=== PATIENT | male | born 1950 | race Caucasian/White ===

== ENCOUNTER 2021-02-03 16:19 | Emergency (ER) | payer OTHER, SELFPAY ==
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
[2021-02-03 16:28] VITALS: BP 129/92; BP 134/80; PULSE 79; PULSE 94; RESP 18; TEMP 37; O2SAT 100; O2SAT 99; BMI 24.2
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
--- NOTE | 2021-02-03 17:03 | PC.NURSE ---
pt is very repetitive, strong potent smell of marijuana while in pt room.
[2021-02-03 17:06] LABS: MANUAL DIFF FLAG NO
[2021-02-03 17:07] LABS: Basophils Percent Auto 0.4 % (0-2); Eosinophils Absolute Auto 0.1 X10*3/uL (0.0-0.4); Eosinophils Percent Auto 1.7 % (0-4); Hematocrit 41.2 % (42-52); Hemoglobin 14.5 g/dl (14.0-18.0); Imm Gran Abs Auto 0.01 X10*3/uL (0.00-0.03); Imm Gran Pct Auto 0.1 % (0.0-0.4); Lymphocytes Absolute Auto 1.8 X10*3/uL (1.2-4.9); Lymphocytes Percent Auto 26.7 % (20-40); Mean Corpuscular HGB Conc 35.2 g/dl (31.0-36.0); Mean Corpuscular Hemoglobin 32.3 pg (27.0-33.0); Mean Corpuscular Volume 91.8 fL (80-98); Mean Platelet Volume 10.4 fL (9.4-12.4); Monocytes Absolute Auto 0.5 X10*3/uL (0.1-1.2); Monocytes Percent Auto 7.7 % (2-11); Neutrophils Absolute Auto 4.4 X10*3/uL (2.0-8.3); Neutrophils Percent Auto 63.4 % (45-73); Platelet Count 183 X10*3/uL (160-400); Red Blood Count 4.49 X10*6/uL (4.60-5.80); Red Cell Distribution Width 12.1 % (11.0-16.0); White Blood Count 6.9 X10*3/uL (4.8-10.8)
[2021-02-03 17:11] VITALS: BP 136/86; PULSE 79; RESP 16; TEMP 36.9; O2SAT 94
[2021-02-03 17:32] LABS: Ethanol < 10 mg/dL
[2021-02-03 17:35] LABS: Alanine Aminotransferase 19 U/L (0-40); Alkaline Phosphatase 53 U/L (39-117); Anion Gap 11 (12-20); Aspartate Amino Transferase 20 U/L (5-37); Bilirubin Total 0.7 mg/dL (0.0-1.0); Blood Urea Nitrogen 16 mg/dL (9-16); Calcium 9.5 mg/dL (8.4-10.2); Carbon Dioxide 23 mmol/L (22-29); Chloride 109 mmol/L (96-108); Creatinine Clr Calc Pharmacy 59.6; Estimated Glomerular Filt Rate > 60; Glucose Random 107 mg/dL (60-115); Magnesium 2.1 mg/dL (1.6-2.6); Sodium 139 mmol/L (135-145); Total Protein 6.5 g/dL (6.5-8.0)
[2021-02-03 17:41] LABS: Troponin-I High Sensitivity 14.8 ng/L (<3.5-35.0)
[2021-02-03 19:17] VITALS: BP 147/82; PULSE 60; RESP 15; TEMP 37; O2SAT 98
--- NOTE | 2021-02-03 19:27 | PC.NURSE ---
RN assumed care at 1900. Pt alert and oriented x4, calm and cooperative. Pt denies pain. Pt ambulating and steady on his feet, denies dizziness weakness blurred vision or headache. Pt educated on dc and stated an understanding. Vitals stable. No IV in place. Pt picked up by friend.
== END 2021-02-03 19:28 | disposition home or self-care (01) ==
PROVIDERS: Emergency Provider Internal Medicine; PCP Internal Medicine
DX: Z04.1 Encounter for examination and observation following transport accident (principal); G47.419 Narcolepsy without cataplexy
CPT/HCPCS: 36415; 70450; 72125; 80053; 82077; 83735; 84484; 85025; 93005; 99284; 99285

== ENCOUNTER 2022-10-08 09:19 | Outpatient (REF) | payer OTHER, SELFPAY ==
--- NOTE | ~2022-10-08 | MM_ITS ---
EXAMINATION: BONE DENSITOMETRY CLINICAL INDICATION: Osteoporosis. COMPARISON: None (current study represents initial baseline exam). TECHNIQUE: Using a [employer] DXA System (software version: 13.1) manufactured by [employer], dual-energy x-ray absorptiometry was performed of the lumbar spine and left hip. The images are of good technical quality. Summary results are attached. FINDINGS: AP SPINE L1-L4: BMD 1.223 g/cm2, Z-score 0.9, T-score 0.0, normal. LEFT FEMUR, NECK: BMD 0.977 g/cm2, Z-score 0.8, T-score -0.7, normal. LEFT FEMUR, TOTAL: BMD 1.026 g/cm2, Z-score 0.4, T-score -0.5, normal. IDENTIFIED RISK FACTORS: Height loss, low calcium intake. HISTORY OF FRACTURE: None listed. MEDICATIONS: None listed. MM/XR DEXA axial skeleton IMPRESSION: 1. DIAGNOSIS: Normal bone density based on the lowest T-score value of -0.7 in the femoral neck applying World Health Organization criteria. 2. 10-YEAR FRACTURE RISK PREDICTION, FRAX: According to the guidelines, FRAX calculation should only be performed on patients in the osteopenia bone density category. Therefore, FRAX was not performed on this patient. 3. Treatment Recommendations: NOF guidelines recommend consideration for treatment in postmenopausal women and men age 50 and older presenting with the following: -A hip or vertebral (clinical or morphometric) fracture. -T-score less than or equal to -2.5 at the femoral neck or spine after appropriate evaluation to exclude secondary causes. -Low bone mass at the hip or spine and a 10-year fracture probability by FRAX of greater than or equal to 3% for hip fracture or greater than or equal to 20% for major osteoporotic fracture based on the [place] adapted WHO algorithm. 4. Other Recommendations: All treatment decisions require clinical judgment and consideration of individual patient factors, including patient preferences, comorbidities, previous drug use, risk factors not captured in the FRAX model (e.g. frailty, falls, vitamin D deficiency, increased bone turnover, interval significant decline in bone density) and possible under or overestimation of fracture risk by FRAX. FUTURE SCAN RECOMMENDATION: People with diagnosed cases of osteoporosis or at high risk for fracture should have regular bone mineral density tests. For patients eligible for Medicare, routine testing is allowed once every 2 years. The testing frequency can be increased to one year for patients who have rapidly progressing disease, those who are receiving or discontinuing medical therapy to restore bone mass, or have additional risk factors.
== END 2022-10-08 09:20 | disposition home or self-care (01) ==
LOC: HO.MAMMO 09:19
PROVIDERS: PCP Nurse Practitioner Adult Health; Visit Provider Nurse Practitioner Adult Health
DX: Z13.820 Encounter for screening for osteoporosis (principal); M81.0 Age-related osteoporosis without current pathological fracture
CPT/HCPCS: 77080

== ENCOUNTER 2024-12-05 17:33 | Inpatient (IN) | payer MEDICARE, OTHER, SELFPAY ==
--- OUTSIDE RECORDS SUMMARY | 2024-11-08 07:00 | XMS_ITS ---
Author Organization [facility] Address [address] [place] [phone] Care Team Providers Care Photo Equipment Technician Name Role Phone MARLON CABA Unavailable [phone] REASON FOR VISIT PrEP F/U Social History Sex Assigned At : Social History Observation Description Sex Assigned At Male Encounters Encounter Location Date Provider Diagnosis [address] [id number] MARLON CABA Plan Of Treatment Next Appt Details Provider Name:VANESSA PETIT , 12/18/2024 12:00:00 PM, [address] [place] [address] I, [place], [place], [id number], Progress Notes * Dana KITCHENOB:1950 (74 yo M)Acc No.[id number]:11/08/2024 Progress Notes Patient: Ulisses MILNER Provider: Linwood CABA :1950 A ge:74 Y S ex:Male Date:11/08/2024 Address:[address] [place], [place] [id number] Subjective: * Chief Complaints: * 1 . PrEP F/U. * Medical History: Objective: * Vitals: Assessment: Plan: * Treatment: * Billing Information: * Visit Code: * Procedure Codes: * Electronic signature of MILDRED CABA CNM on 12/05/2024 at 06:11 PM EDT Sign off status: Pending * Provider: Linwood CABA Date: 0 11/08/2024 Generated for B[place] ewa/Parag/eTransmitting on: 0 12/05/2024 06:11 PM EDT
--- NOTE | ~2024-12-05 | XR_ITS ---
EXAMINATION: XR CHEST 1 VIEW HISTORY: Severe hypoxia COMPARISON: Comparison is made with the prior examination dated 12/05/2024. FINDINGS: A single AP portable view of the chest performed at 7:05 AM is submitted. There are low lung volumes. The lungs are clear. There is no pleural effusion, pneumothorax, or pulmonary vascular congestion. The heart is normal in size. Again seen is a small hiatal hernia. There is degenerative disc disease of the spine. XR/XR chest 1V IMPRESSION: Low lung volumes. Small hiatal hernia. No acute cardiopulmonary abnormality. Electronically signed by: Demetris Mckeon MD 12/06/2024 07:23 AM EDT
--- NOTE | ~2024-12-05 | CT_ITS ---
CLINICAL HISTORY: ams CT Brain without contrast Comparison: None FINDINGS: Cortical sulci: There is diffuse prominence of the cortical sulci compatible with age-related atrophy. Ventricles: Normal for age Brain parenchyma: There is patchy lucency throughout the deep white matter indicating chronic microvascular leukomalacia. Extra axial spaces: Normal Posterior Fossa: Normal Extracranial soft tissues: Normal Additional abnormality: Mucous retention cyst in the left maxillary sinus. IMPRESSION: Age-related atrophy with chronic microvascular leukomalacia. No hemorrhage, mass effect, or acute findings identified. This document has been electronically signed by: Meg Rivera MD on 12/05/2024 20:12:31
--- NOTE | ~2024-12-05 | CT_ITS ---
CLINICAL HISTORY: hypoxia CT angiography chest with contrast. 3D Postprocessing. Comparison: None provided Findings: The heart is normal size. RV/LV ratio is normal. Unremarkable thoracic aorta and great vessels. No aneurysm. No pulmonary artery filling defects. The visualized thyroid and mediastinum are unremarkable. Large hiatal hernia. The lungs are clear. There are renal cysts. The bones are intact. IMPRESSION: 1. No pulmonary emboli. This document has been electronically signed by: Meg Rivera MD on 12/05/2024 20:24:23
--- NOTE | ~2024-12-05 | CT_ITS ---
CLINICAL HISTORY: ams hernia hypoxia CT abdomen and pelvis with contrast Comparison: None Findings: The visualized portions of the lungs are normal in appearance. The liver is normal in size without suspicious focal hepatic lesions. No intrahepatic or extrahepatic ductal dilatation is seen. The hepatic and portal veins are patent. No calcified gallstones in the gallbladder. Pancreas, spleen and adrenals are normal in appearance. No suspicious focal lesion of the kidneys. Right renal cysts up to 8.6 cm in size. No hydronephrosis. Small left kidney stone. The abdominal aorta demonstrates no evidence of aneurysmal dilatation or dissection. No bowel obstruction. Colonic diverticulosis. Large amount of fecal material within the colon. Stool impaction of the rectum. Appendix is not visualized. There is enlargement of the prostate gland. No intraperitoneal free air or fluid is visualized. No pathologic lymphadenopathy is seen. Degenerative changes of the lumbar spine. IMPRESSION: No acute findings. Large stool burden. Nonobstructing left kidney stone. Colonic diverticulosis. Additional findings as above. This document has been electronically signed by: Meg Rivera MD on 12/05/2024 20:33:29
--- NOTE | ~2024-12-05 | XR_ITS ---
CLINICAL HISTORY: difficulty breathing 1 view chest x-ray Comparison: None provided Findings: The lungs are clear. Heart size is normal. There is a round shaped opacity overlying the inferior mediastinum. No acute fracture. IMPRESSION: No acute findings. Possible moderate size of hiatal hernia. This document has been electronically signed by: Meg Rivera MD on 12/05/2024 18:35:11
[2024-12-05 17:47] VITALS: BP 171/107; BP 180/110; PULSE 70; RESP 16; TEMP 36.8; O2SAT 76; BMI 18.3
--- NOTE | 2024-12-05 17:50 | ECG_ITS ---
Test Reason : HTN Blood Pressure : */* mmHG Vent. Rate : 62 BPM Atrial Rate : 62 BPM P-R Int : 184 ms QRS Dur : 94 ms QT Int : 430 ms P-R-T Axes : 30 -31 -37 degrees QTcB Int : 436 ms Normal sinus rhythm with sinus arrhythmia Left axis deviation Incomplete right bundle branch block Left ventricular hypertrophy with repolarization abnormality ( R in aVL ) Abnormal ECG When compared with ECG of 03-Feb-2021 17:09, Premature ventricular complexes are no longer Present Incomplete right bundle branch block is now Present ST now depressed in Lateral leads T wave inversion now evident in Lateral leads Referred By: Sandra Fishman Electronically Signed By: Brandon Tejada
--- NOTE | 2024-12-05 17:55 | ED.GENADULT ---
HPI - General Adult General Chief complaint: General Medical Stated complaint: SEC 12 Time Seen by Provider: 12/05/24 18:28 Source: patient and EMS Mode of arrival: EMS Limitations: other (manic ) History of Present Illness ED Provider: MEGAN Fishman HPI narrative: 74-year-old male with an unclear past medical history presents with manic episode. He presents to the emergency department requesting to be turned into a female. He is extremely manic and paranoid upon arrival. Not answering my questions unable to provide history or review of systems. It is noted upon initial assessment that patient is hypoxic however he is speaking in full sentences controlling secretions well. No reported trauma. Patient was brought in by EMS from home. Related Data Home Medications ?Medication ?Instructions ?Recorded ?Confirmed emtricitabine 200 mg-tenofovir 1 tab PO DAILY 12/05/24 12/05/24 alafenamide fumarate 25 mg tablet (Descovy) finasteride 5 mg tablet 5 mg PO DAILY 12/05/24 12/05/24 hydroxyzine pamoate 25 mg capsule 25 mg PO BEDTIME 12/05/24 12/05/24 lorazepam 0.5 mg tablet 0.5 mg PO DAILY PRN anxiety 12/05/24 12/05/24 losartan 100 mg tablet 100 mg PO DAILY 12/05/24 12/05/24 omeprazole 20 mg capsule,delayed 20 mg PO BEDTIME 12/05/24 12/05/24 release tamsulosin 0.4 mg capsule 0.8 mg PO BEDTIME 12/05/24 12/05/24 trospium 20 mg tablet 20 mg PO BID 12/05/24 12/05/24 valacyclovir 500 mg tablet 500 mg PO DAILY 12/05/24 12/05/24 venlafaxine 37.5 mg 37.5 mg PO DAILY 12/05/24 12/05/24 capsule,extended release 24 hr vibegron 75 mg tablet (Gemtesa) 75 mg PO DAILY 12/05/24 12/05/24 Allergies Allergy/AdvReac Type Severity Reaction Status Date / Time No Known Allergies Allergy Verified 12/05/24 18:02 Review of Systems Review of Systems: Yes all other systems are reviewed and are negative PMFSH Past Medical History Attestation statement: The following information was validated with the patient. Source: old records reviewed and nursing notes reviewed Medical History Sleep trouble Social History Social History Alcohol intake: never Advance Directives: No Advance Directives Information Provided: No Physical Exam ED Exam Exam: Appearance: Alert.? Oriented X1.? No acute distress.? appears to be withdrawn from reality, paranoid, manic. Head: Normocephalic, atraumatic, no step-offs or deformities Eyes: Pupils equal, round and reactive to light.? ENT: Pharynx normal.? Neck: Normal inspection.? Neck supple.? CVS: Normal heart rate and rhythm.? Pulses normal.? Respiratory: No respiratory distress.? Breath sounds diminished bilaterally.? Abdomen: Soft and nontender.? Skin: Skin warm and dry.? Normal skin color.? Normal skin turgor.? Extremities: No lower extremity edema.? No calf ttp. 5/5 strength to bilateral upper and lower extremities Back: No midline tenderness, no C-spine tenderness, full range of motion, no CVA tenderness bilaterally Neuro: Oriented to person not place time or situation.? No motor deficit.? No sensory deficit. CN 2-12 intact Vital Signs: Vital Signs - 24 hr 12/05/24 17:47 12/05/24 19:38 12/05/24 20:48 Temperature 98.3 F 98.9 F Pulse Rate 70 71 Respiratory Rate 16 15 Blood Pressure 171/107 H 202/108 H 141/108 H Pulse Oximetry 76 L 96 Oxygen Delivery Method Room Air Oxymask Oxygen Flow Rate 2 12/05/24 21:05 Temperature Pulse Rate 78 Respiratory Rate 17 Blood Pressure 144/111 H Pulse Oximetry 95 Oxygen Delivery Method Room Air Oxygen Flow Rate BMI result Body Mass Index 18.3 vital signs stable Course Reevaluation(s) Reevaluation #1: CBC unremarkable Chemistry with no acute findings requiring intervention. Mild elevation in bilirubin however no tenderness to palpation of abdomen. He is saturating 92% on 1 L. urine toxicology negative. D-dimer negative. Due to altered mental status and unknown psych history will order CT head. Will also obtain a CTA due to episode of hypoxia to ensure that there is no underlying chest pathology such as pulmonary embolism. There was a possible hernia noted on chest x-ray therefore will further investigate with abdomen CT. Imaging pending. Patient is still quite manic and paranoid. He has pressured speech. I gave Haldol, Ativan and Benadryl without improvement of symptoms. Will give more Haldol at this time. Time: 19:45 Reevaluation #2: Mango Kruse MD I received sign out at a 15:00 on this patient on December 05. Nonspecific paranoia delusion encephalopathy. Possible hypoxia. ABG WILL BE DRAWN TO DETERMINE IF THE MEASUREMENTS WE HAS BEEN SEEING OUR ERRONEOUS OR NOT. ROOM AIR ABG DRAWN AND SENT. ___ 20:52Jordangel Kruse MD: Patient likely has new onset evelyn or psychosis. ABG on room air does not suggest hypoxia. Medically cleared. 2109: Patient once again found hypoxic although he was slightly sleepy from midazolam 91% on 4 L was placed on OxyMask 6 L. I discussed with medical hospitalist for medical observation to eval this hypoxia before pt can be fully medically cleared and have psychiatric disposition. Working diagnosis: COPD/DALJIT/CHF less likely, toxic/metabolic encephalopathy unlikely - more likely primary decomensation of underlying psych d/o ?bipolar/evelyn. Repeat ABG done at 22:04 on 6 L OxyMask which is 45% FiO2. AA gradient 22 mm Hg normal for age per MD count A-a O? Gradient from [email or web address] website on 12/05/2024 All calculations should be rechecked by clinician prior to use RESULT SUMMARY: 180.1 mm Hg A-a Gradient 22.0 mm Hg Expected A-a Gradient for Age INPUTS: Atmospheric pressure ?> 760 mm Hg Yohana? ?> 97 mm Hg FiO? ?> 45 % Mumtaz? ?> 35 mm Hg Age (for expected A-a gradient) ?> 74 years Reevaluation #3: Sign out to Medications Administered Generic Name Dose Route Start Last Admin Trade Name Freq PRN Reason Stop Dose Admin Sodium Chloride 3 ml 12/06/24 00:00 12/06/24 00:09 0.9 % Sodium Chloride Flush 3 Ml Syringe IVFLUSH 3 ml QSHIFT OTILIA Administration Discontinued Medications Generic Name Dose Route Start Last Admin Trade Name Freq PRN Reason Stop Dose Admin Diphenhydramine HCl 50 mg 12/05/24 18:38 12/05/24 18:46 Diphenhydramine Hcl 25 Mg Capsule PO 12/05/24 18:39 50 mg ONCE ONE Administration Haloperidol 5 mg 12/05/24 18:38 12/05/24 18:46 Haloperidol 5 Mg Tablet PO 12/05/24 18:39 5 mg ONCE ONE Administration Haloperidol 5 mg 12/05/24 19:41 12/05/24 20:12 Haloperidol 5 Mg Tablet PO 12/05/24 19:42 Not Given ONCE ONE Haloperidol 10 mg 12/05/24 20:05 12/05/24 20:11 Haloperidol 5 Mg Tablet PO 12/05/24 20:06 10 mg ONCE ONE Administration Lorazepam 2 mg 12/05/24 18:35 12/05/24 18:48 Lorazepam 1 Mg Tablet PO 12/05/24 18:36 Not Given ONCE ONE Midazolam HCl 2 mg 12/05/24 20:28 12/05/24 21:04 Midazolam Hcl 2 Mg/2 Ml Vial IVPUSH 12/05/24 20:29 2 mg ONCE ONE Administration Ziprasidone 10 mg 12/05/24 22:10 12/05/24 22:33 Ziprasidone Mesylate 20 Mg Vial IM 12/05/24 22:11 10 mg ONCE STA Administration Medical Decision Making Medical Decision Making [facility] Narrative: 1758 74-year-old male presents with manic episode. Requesting to be turned into a female. Upon initial arrival patient vitals showed that patient was hypoxic however after changing the oxygen probe patient's O2 saturation 92-93% on room air. Exam diminished lung sounds bilaterally. I suspect acute psychotic episode /evelyn/paranoia. He appears to be drawn from reality. Hypoxia was likely a technical error I do not suspect true hypoxia will continue to monitor unlikely PE, ACS, pneumothorax, pneumonia. No signs of acute threat to airway plan medical clearance evaluation by care team Differential Diagnosis Differential Diagnoses: The differential diagnosis associated with the presentation includes ( I suspect acute psychotic episode /evelyn/paranoia. He appears to be drawn from reality. Hypoxia was likely a technical error I do not suspect true hypoxia will continue to monitor unlikely PE, ACS, pneumothorax, pneumonia. No signs of acute threat to airway) Admission/Observation Consideration of admission/observation: Escalation of care including admission/observation considered ( possible) Lab Data 12/05/24 18:03 12/05/24 18:03 Labs: Lab Results 12/05/24 12/05/2425 Range/Units 18:03 19:52 20:40 WBC 6.4 (4.8-10.8) X10*3/uL RBC 4.34 L (4.60-5.80) X10*6/uL Hgb 14.9 (14.0-18.0) g/dl Hct 42.3 (42.0-52.0) % MCV 97.5 (80.0-98.0) fL MCH 34.3 H (27.0-33.0) pg MCHC 35.2 (31.0-36.0) g/dl RDW 11.8 (11.0-16.0) % Plt Count 178 (160-400) X10*3/uL MPV 10.9 (9.4-12.4) fL Immature Gran % (Auto) 0.2 (0.0-0.4) % Neut % (Auto) 67.1 (45-73) % Lymph % (Auto) 23.0 (20-40) % [place] % (Auto) 8.3 (2-11) % Eos % (Auto) 0.8 (0-4) % Baso % (Auto) 0.6 (0-2) % Lymph # (Auto) 1.5 (1.2-4.9) X10*3/uL [place] # (Auto) 0.5 (0.1-1.2) X10*3/uL Eos # (Auto) 0.1 (0.0-0.4) X10*3/uL Baso # (Auto) 0.0 (0.0-0.2) X10*3/uL Abs Immat Gran (auto) 0.01 (0.00-0.03) X10*3/uL Absolute Neuts (auto) 4.3 (2.0-8.3) x10*3/uL Absolute Nucleated RBC 0.000 (0.0-0.012) X10*3/uL Nucleated RBC % (auto) 0.0 (0.0-0.2) /100WBC PT 12.5 H (10.9-12.4) SEC INR 1.1 (0.9-1.1) D-Dimer High Sensitivty 204 NG/ML O2 Saturation 97.0 % ABG pH at Pt Temp 7.46 H (7.35-7.45) ABG pCO2 at Pt Temp 31 L (32-45) mmHg ABG pO2 at Pt Temp 90 (83-108) mmHg ABG HCO3 22 (22-26) mmol/L ABG Base Excess (Actual) 0.1 mmol/L Sodium 139 (135-145) mmol/L Potassium 3.8 (3.3-5.1) mmol/L Chloride 107 (96-108) mmol/L Carbon Dioxide 21 L (22-29) mmol/L Anion Gap 15 (12-20) BUN 19 H (9-16) mg/dL Creatinine 0.81 (0.5-1.4) mg/dL Estim Creat Clear Calc 65.4 Estimated GFR > 60 Random Glucose 91 (60-115) mg/dL Calcium 9.7 (8.4-10.2) mg/dL Magnesium 2.1 (1.6-2.6) mg/dL Total Bilirubin 1.2 H (0.0-1.0) mg/dL AST 30 (5-37) U/L ALT 19 (0-40) U/L Alkaline Phosphatase 57 (39-117) U/L Troponin I High Sens 17.5 (<3.5-35.0) ng/L Total Protein 7.1 (6.5-8.0) g/dL Albumin 4.3 (3.5-5.0) g/dL Urine Color Yellow Urine Appearance Clear Urine pH 7.0 (5.0-9.0) Ur Specific [place] 1.025 (1.005-1.025) Urine Protein 30 (1+) H (Neg-Trace) mg/dL Urine Glucose (UA) Negative (Negative) mg/dL Urine Ketones Trace (Negative) mg/dL Urine Blood Negative (Negative) Urine Nitrite Negative (Negative) Ur Leukocyte Esterase Negative (Negative) Urine RBC 0-2 (0-2) /HPF Urine WBC 0-5 (0-5) /HPF Ur Squamous Epith Cells 0-2 (0-2) /HPF Urine Bacteria None Seen (None Seen) Hyaline Casts 0-2 (0-2) /LPF Urine Opiates Screen Not Detected (Not Detect) Ur Buprenorphine Scrn Not Detected (Not Detect) ng/mL Ur Oxycodone Screen Not Detected (Not Detect) ng/mL Urine Methadone Screen Not Detected (Not Detect) ng/mL Urine Fentanyl Screen Not Detected (Not Detect) Ur Barbiturates Screen Not Detected (Not Detect) Ur Phencyclidine Scrn Not Detected (Not Detect) Ur Amphetamines Screen Not Detected (Not Detect) U Benzodiazepines Scrn Not Detected (Not Detect) Urine Cocaine Screen Not Detected (Not Detect) U Marijuana (THC) Screen POSITIVE H (Not Detect) Ethyl Alcohol < 10 mg/dL 12/05/24 Range/Units 21:53 WBC (4.8-10.8) X10*3/uL RBC (4.60-5.80) X10*6/uL Hgb (14.0-18.0) g/dl Hct (42.0-52.0) % MCV (80.0-98.0) fL MCH (27.0-33.0) pg MCHC (31.0-36.0) g/dl RDW (11.0-16.0) % Plt Count (160-400) X10*3/uL MPV (9.4-12.4) fL Immature Gran % (Auto) (0.0-0.4) % Neut % (Auto) (45-73) % Lymph % (Auto) (20-40) % [place] % (Auto) (2-11) % Eos % (Auto) (0-4) % Baso % (Auto) (0-2) % Lymph # (Auto) (1.2-4.9) X10*3/uL [place] # (Auto) (0.1-1.2) X10*3/uL Eos # (Auto) (0.0-0.4) X10*3/uL Baso # (Auto) (0.0-0.2) X10*3/uL Abs Immat Gran (auto) (0.00-0.03) X10*3/uL Absolute Neuts (auto) (2.0-8.3) x10*3/uL Absolute Nucleated RBC (0.0-0.012) X10*3/uL Nucleated RBC % (auto) (0.0-0.2) /100WBC PT (10.9-12.4) SEC INR (0.9-1.1) D-Dimer High Sensitivty NG/ML O2 Saturation 99.0 % ABG pH at Pt Temp 7.43 (7.35-7.45) ABG pCO2 at Pt Temp 35 (32-45) mmHg ABG pO2 at Pt Temp 97 (83-108) mmHg ABG HCO3 24 (22-26) mmol/L ABG Base Excess (Actual) 0.5 mmol/L Sodium (135-145) mmol/L Potassium (3.3-5.1) mmol/L Chloride (96-108) mmol/L Carbon Dioxide (22-29) mmol/L Anion Gap (12-20) BUN (9-16) mg/dL Creatinine (0.5-1.4) mg/dL Estim Creat Clear Calc Estimated GFR Random Glucose (60-115) mg/dL Calcium (8.4-10.2) mg/dL Magnesium (1.6-2.6) mg/dL Total Bilirubin (0.0-1.0) mg/dL AST (5-37) U/L ALT (0-40) U/L Alkaline Phosphatase (39-117) U/L Troponin I High Sens (<3.5-35.0) ng/L Total Protein (6.5-8.0) g/dL Albumin (3.5-5.0) g/dL Urine Color Urine Appearance Urine pH (5.0-9.0) Ur Specific [place] (1.005-1.025) Urine Protein (Neg-Trace) mg/dL Urine Glucose (UA) (Negative) mg/dL Urine Ketones (Negative) mg/dL Urine Blood (Negative) Urine Nitrite (Negative) Ur Leukocyte Esterase (Negative) Urine RBC (0-2) /HPF Urine WBC (0-5) /HPF Ur Squamous Epith Cells (0-2) /HPF Urine Bacteria (None Seen) Hyaline Casts (0-2) /LPF Urine Opiates Screen (Not Detect) Ur Buprenorphine Scrn (Not Detect) ng/mL Ur Oxycodone Screen (Not Detect) ng/mL Urine Methadone Screen (Not Detect) ng/mL Urine Fentanyl Screen (Not Detect) Ur Barbiturates Screen (Not Detect) Ur Phencyclidine Scrn (Not Detect) Ur Amphetamines Screen (Not Detect) U Benzodiazepines Scrn (Not Detect) Urine Cocaine Screen (Not Detect) U Marijuana (THC) Screen (Not Detect) Ethyl Alcohol mg/dL Independent Interpretation I performed an independent interpretation of an: Plain X-Ray and CT Scan Radiology Impression Discussion of test interpretation with radiology: I have reviewed the radiologist's reading. External Record Review External record reviewed: Office record I personally reviewed [facility] outpatient records General Medicine office note from Dr. Hammond April 2021 from that note patient is listed medical history medications and surgical history were as below copied: Problem List/Past Medical HistoryOngoingDisorders of Diaphragm Diverticulitis HistoricalNo qualifying data Procedure/Surgical HistoryColectomy, sigmoid with anastomosis: 2010 Repair initial inguinal hernia, age 5 years or older; reducible: 2009 MedicationsClaritin 10 mg oral tablet, 10 mg= 1 tablet, By Mouth, Daily finasteride 5 mg oral tablet, 5 mg= 1 tablet, By Mouth, Daily Flomax 0.4 mg oral capsule, 0.8 mg= 2 capsule, By Mouth, Daily at bedtime,? ?Not taking LORazepam 0.5 mg oral tablet, 0.25 mg= 0.5 tablet, By Mouth, 2 times a day mirtazapine 15 mg oral tablet, 7.5 mg= 0.5 tablet, By Mouth, Daily at bedtime propranolol 10 mg oral tablet, 10 mg= 1 tablet, By Mouth, 3 times a day, PRN, May take up to 3 times a day as needed for anxiety Remeron 30 mg oral tablet, 30 mg= 1 tablet, By Mouth, Daily at bedtime Singulair 10 mg oral tablet, 10 mg= 1 tablet, By Mouth, Daily,? Chronic Conditions Patient?s care impacted by: Other Critical Care Time Critical Care Time Critical Care Time: Yes Total Critical Care Time: 45 Attestation: I attest to this time spent taking care of the patient, obtaining history, physical, reviewing labs, imaging, treatment of patients condition +/- specialist/hospitalist consult +/- procedure Discharge Plan Discharge Clinical Impression: Manic behavior, Hypoxia Patient Disposition: Still a Patient
[2024-12-05 18:10] LABS: MANUAL DIFF FLAG NO
[2024-12-05 18:11] LABS: Hematocrit 42.3 % (42.0-52.0); Hemoglobin 14.9 g/dl (14.0-18.0); Imm Gran Abs Auto 0.01 X10*3/uL (0.00-0.03); Imm Gran Pct Auto 0.2 % (0.0-0.4); Lymphocytes Absolute Auto 1.5 X10*3/uL (1.2-4.9); Mean Corpuscular HGB Conc 35.2 g/dl (31.0-36.0); Mean Corpuscular Hemoglobin 34.3 pg (27.0-33.0); Mean Corpuscular Volume 97.5 fL (80.0-98.0); NRBC Abs Auto 0.000 X10*3/uL (0.0-0.012); NRBC Pct Auto 0.0 /100WBC (0.0-0.2); Platelet Count 178 X10*3/uL (160-400); Red Blood Count 4.34 X10*6/uL (4.60-5.80); White Blood Count 6.4 X10*3/uL (4.8-10.8)
--- OUTSIDE RECORDS SUMMARY | 2024-12-05 18:11 | XMS_ITS | Clinical Summary ---
Author Organization [facility] Address [facility] [address] [place] [address] Phone Care Team Providers Care Swing Grinder Name Role Phone Rosaline Smith NP Unavailable [phone] PheShannan pickardanna Kimberly PROTECTOR PLATE ATTACHER Unavailable Que Madsen MD Unavailable [phone] Que Madsen MD Unavailable [phone] Rosaline Smith NP Primary Care Provider [phone] Rosaline Smith NP Unavailable [phone] Allergies Active Allergy Reactions Criticality Noted Date Comments Allergenic Extracts Cough Low 01/17/2020 Lisinopril Other (See Comments) 06/08/2021 Lip swelling Medications Medication-Free Text THC/CBD 1:1 5mg/5 mg edibles Active DESCOVY 200-25 mg tablet Take 1 tablet by mouth daily. Active propranoloL (INDERAL) 10 MG immediate release tabletIndication s:Anxiety state TAKE 1 TABLET (10 MG TOTAL) BY MOUTH ONCE NEEDED (ANXIETY). 90 tablet 1 04/24/20 24 Active albuterol 90 mcg/actuation inhalerIndicatio ns:Dyspnea on exertion INHALE 2 PUFFS INTO THE LUNGS EVERY 6 HOURS NEEDED FOR WHEEZING(OR 15 MINUTES BEFORE EXERCISE) 18 g 1 06/07/19 25 Active trospium (SANCTURA) 20 mg tablet Take 1 tablet by mouth 2 (two) times a day. 07/04/19 25 Active tamsulosin (FLOMAX) 0.4 mg Cap TAKE 2 CAPSULES BY MOUTH NIGHTLY AT BEDTIME. 180 capsule 1 09/12/19 25 Active hydrOXYzine HCL (ATARAX) 10 MG tabletIndication s:Generalized anxiety disorder TAKE 1 TABLET BY MOUTH EVERY 8 HOURS NEEDED FOR ANXIETY. 30 tablet 10/03/19 25 Active venlafaxine (EFFEXOR-XR) 37.5 MG 24 hr capsule Take 37.5 mg by mouth every morning. 09/28/19 25 Active omeprazole (PRILOSEC) 20 MG capsule TAKE 1 CAPSULE (20 MG TOTAL) BY MOUTH DAILY. TAKE ON AN EMPTY STOMACH AT BEDTIME 09/24/19 25 Active melatonin 5 mg Tab Take by mouth nightly at bedtime. Active losartan (COZAAR) 100 MG tabletIndication s:Essential hypertension Take 1 tablet (100 mg total) by mouth daily. 30 tablet 3 10/17/19 25 Active finasteride (PROSCAR) 5 mg tabletIndication s:Benign prostatic hyperplasia with nocturia Take 1 tablet (5 mg total) by mouth daily. 90 tablet 3 10/20/19 25 Active vibegron (GEMTESA ORAL) Take by mouth. Pt reported but unsure dose. Active LORazepam (ATIVAN) 0.5 MG tabletIndication s:Generalized anxiety disorder Take 1 tablet (0.5 mg total) by mouth daily as needed for anxiety. 15 tablet 11/24/19 25 Active emtricitabine-te nofovir alafenamide (DESCOVY) 200-25 mg tablet 1 tablet Orally Once a day for 60 days 04/23/20 23 025 Discontinued(Du plicate order) LORazepam (ATIVAN) 1 MG tablet Take 1 tablet (1 mg total) by mouth nightly at bedtime as needed (anxiety, insomnia). 8 tablet 10/06/19 25 025 Discontinued LORazepam (ATIVAN) 0.5 MG tabletIndication s:Generalized anxiety disorder Take 1 tablet (0.5 mg total) by mouth daily as needed for anxiety. 15 tablet 11/10/19 25 025 Discontinued(Re order) LORazepam (ATIVAN) 0.5 MG tabletIndication s:Generalized anxiety disorder Take 1 tablet (0.5 mg total) by mouth daily as needed for anxiety. 15 tablet 11/24/19 25 025 Discontinued(Re order) Active Problems Problem Noted Date Diagnosed Date Generalized anxiety disorder with panic attacks 10/17/2024 Esophageal stricture 04/07/2024 Moderate aortic regurgitation 12/24/2023 HSV-1 (herpes simplex virus 1) infection 023 Vitamin D deficiency 01/15/2023 Essential hypertension 01/17/2019 Assessment & Plan (01/17/2019 3:04 PM EDT): Single office management of elevated blood pressure. Unclear if situational. Will defer to Ms. Smith for further evaluation. Dyspnea on exertion 06/07/2018 Assessment & Plan (04/04/2020 9:24 AM EST): No evidence for significant lung disease contributing to observed dyspnea. Increased work of breathing may be due to patient's mild restriction as evidenced by his dextroscoliosis. No evidence for diaphragmatic dysfunction based on exam. Cannot rule out exercise-induced asthma though allergy is actually improved since removal of cath from home environment. Suggest trial of albuterol inhaler, 2 puffs with spacer 15 minutes prior to exercise. Review of technique provided. Otherwise, no pulmonary concerns which would limit the patient's ability to continue current exercise regimen. Assessment & Plan (01/17/2019 3:05 PM EDT): Clinically stable although underlying etiology not completely clear. Welcome to try as needed albuterol prior to exertion though no significant obstruction seen on previous PFTs. Given underlying anxiety, question if could be related to vocal cord dysfunction. If worsens, consider methacholine challenge testing. Otherwise would continue no specific therapy recommended at this time. Assessment & Plan (09/26/2018 11:06 PM EDT): Exertional dyspnea of unclear etiology though no evidence for diaphragmatic paralysis. Given symptoms, what may be related to allergies and sense of decreased airflow nasally versus exercise-induced bronchoconstriction. Recommend trial of short acting bronchodilator, albuterol, 15 minutes prior to exercise. Trial of montelukast 10 mg every evening. Typical side effects such as vivid dreams as well as rare instances of mood disorder reviewed with patient. If unclear benefit, could consider methacholine challenge test given normal spirometry. Assessment & Plan (08/23/2018 4:15 PM EDT): PFTs with reduced peak expiratory flow rates and MVV but otherwise normal pulmonary physiology. Based on PFT findings, history and exam, etiology most suggestive of tracheomalacia. Discussed different options for diagnosis as well as potential therapies. Recommend the following: Proceed with diagnostic bronchoscopy for airway evaluation. Demonstrated technique for pursed lip breathing particularly with exertion. Would benefit from inhalation to the nose once nasal congestion improves. Pending bronchoscopy results, would then consider if further interventions, which include nocturnal CPAP versus an extreme cases surgical management, would be indicated. Assessment & Plan (06/07/2018 3:48 PM EST): Signs and symptoms along with history consistent with known diaphragmatic weakness/paralysis. Plan further evaluation for diaphragmatic function as outlined below. Pending those results would determine if additional workup is indicated. Allergic rhinitis 09/26/2017 Assessment & Plan (04/04/2020 9:24 AM EST): Essentially resolved following removal of cath from his environment following his divorce. Can use [id number] antihistamines as needed. Assessment & Plan (01/17/2019 3:06 PM EDT): Continue as needed fluticasone nasal spray and [id number] antihistamines. If symptoms persist, and once current mood disorder stabilized, could consider trying montelukast as previously recommended. Assessment & Plan (09/26/2018 11:07 PM EDT): Active perennial rhinitis, at least a component likely due to cat hair. Continue Flonase and as needed loratadine. Trial of Singulair as above. Scheduled for allergy skin testing. Patient reminded to avoid all antihistamines 1 week prior to testing. Assessment & Plan (08/23/2018 4:12 PM EDT): Resume Claritin. Start high-dose fluticasone 1 or 2 sprays twice daily. Pending response, would consider adding Azelastine nasal spray. Assessment & Plan (06/07/2018 3:47 PM EST): Chronic exposure to known cat allergens. Recommend nasal steroids and/or nasal saline as needed. Benign prostatic hyperplasia with nocturia 09/26 Diverticulosis of large intestine without hemorr sola 09/26/2017 Eczema 09/26/2017 Erectile dysfunction 09/26/2017 Hiatal hernia with GERD 09/26/2017 Insomnia 09/26/2017 Irritable bowel syndrome 09/26/2017 Lactose intolerance 09/26/2017 Resolved Problems Problem Noted Date Diagnosed Date Resolved Date Diaphragm paralysis 06/07/2018 08/24/19 19 Assessment & Plan (08/23/2018 4:15 PM EDT): Follow-up testing with no evidence of current diaphragmatic paralysis suggesting recovery of right sided previous weakness. Dyspnea therefore from alternative etiology as described above. 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 Interestingly he developed on interval scans from February 14 - February 16, 2010 with only intervention being placement of a pigtail catheter and a pelvic abscess. As per prior records, no indication for mercury toxicity as the etiology. Nonetheless, will reassess radiographic and physiologic residual function. Recommendations: 1. Obtain chest x-ray for new baseline. 2. Obtain sniff test to evaluate partial or complete right diaphragmatic paralysis versus eventration. 3. Obtain complete pulmonary function studies with neuromuscular maneuvers to assess current physiologic status. 4. Recommend use of incentive spirometry 3 times daily to avoid chronic atelectasis, and with diaphragmatic elevation is well as in the setting of known dextroscoliosis. Diaphragm injury 09/26/2017 04/04/2020 Encounters Date Type Department Care Team Description 12/05/2024 Telephone [facility] 14 [facility] [address] [place] [address] Iliana Jara MA not doing well 12/02/2024 Telephone [facility] [address] [place] [address] Wanda Gonzalez CNP Mental Health Problem (After hours call ) 11/29/2024 Telephone [facility] [address] [address] Rosaline Smith, GEORGE Please call; REQUESTING CALL BACK 11/28/2024 Telephone [facility] Internal Medicine [address] [address] Rosaline Smith NP Therapy call 11/23/2024 11:10 AM EDT Office Visit [facility] [address] [address] Rosaline Smith NP Benzodiazepine withdrawal with complication (Primary Dx); Generalized anxiety disorder 11/20/2024 Refill [facility] [address] [address] Rosaline Smith, GEORGE Medication Refill 11/20/2024 Refill [facility] [address] [address] Rosaline Smith NP Medication Refill 11/15/2024 Nurse Triage [facility] [address] [address] Heavenly Cody RN Medication Refill (After hours call ) 11/14/2024 Telephone [facility] [address] [address] Prachi Mccormack, RN Not doing well 11/10/2024 Telephone [facility] [address] [address] Rosaline Smith NP Call back requested 11/09/2024 12:50 PM EDT Office Visit [facility] [address] [address] Rosaline Smith NP Generalized anxiety disorder (Primary Dx) 11/08/[address] [facility] [address] [place] [address] Rajani Lee PA-C Medication Question (After hours conversion worker) 11/08/2024 Telephone [facility] [address] [place] [address] Iliana Jara MA extreme anxiety 11/07/2024 9:42 PM EDT - 11/08/2024 3:19 PM EDT Emergency [facility] Emergency [address] [place] [address] Chan Garcia MD Kanter, MD Alex Paige, MD Jie Perla, Silvio Del Toro MD Discharge Disposition: Home or Self Care 10/31/2024 Patient Outreach [facility] [address] [place] [address] Carolyn Dawn, JUAN CARLOS Administration ([facility] Discharge ) 10/31/2024 Social Work [facility] [address] [place] [address] [facility] SW outreach) 10/26/2024 Telephone [facility] [address] [place] [address] Rosaline Smith NP Patient information 10/23/2024 Social Work [facility] [address] [address] [facility] Care Coordination ([facility] SW outreach) 10/13/2024 Telephone [facility] [address] [place] [address] Rosaline Smith NP 10/10/2024 1:10 PM EDT Office Visit [facility] [address] [place] [address] Rosaline Smith NP Generalized anxiety disorder with panic attacks (Primary Dx); Psychophysiological insomnia; Obsessive-compulsive disorder, unspecified type; Memory loss; Essential hypertension 10/09/2024 Telephone [facility] [address] [place] [address] Rosaline Smith NP electronic news gathering camera person 10/06/2024 10:22 PM EDT - 10/07/2024 1:15 AM EDT Emergency [facility] Emergency [address] [place] [phone] Silvio Ceron MD Discharge Disposition: Home or Self Care 10/05/2024 Refill [facility] [address] [address] Rosaline Smith NP Medication Refill (Finasteride) 10/05/2024 Telephone [facility] [address] [address] Rosaline Smith NP New Med Request 10/04/2024 6:06 PM EDT - 10/05/2024 3:16 PM EDT Emergency [facility] Emergency [address] [place] [phone] Robby Cardona, Bravo Keenan MD Discharge Disposition: Home or Self Care 10/03/2024 1:50 PM EDT Office Visit [facility] [address] [place] [phone] Rosaline Smith NP Psychophysiological insomnia (Primary Dx); Generalized anxiety disorder; Essential hypertension 10/03/2024 Patient Outreach [facility] [address] [place] [address] Chanel Tripp [facility] ([facility] Referral) 10/03/2024 Social Work [facility] [address] [place] [address] Pretty Merrill [facility] Care Coordination ([facility] SW outreach) 10/02/2024 Patient Outreach [facility] [address] [place] [address] Carolyn Dawn, JUAN CARLOS [facility] ) 10/02/2024 Telephone [facility] [address] [address] Rosaline Smith NP requesting call back 09/30/2024 Refill [facility] [address] [address] Rosaline Smith NP Med Change Request 09/29/2024 Telephone [facility] 14 [facility] [address] [place] [address] Rosaline Smith, GEORGE Medication Question 09/10/2024 Refill [facility] 14 [facility] [address] [place] [address] Rosaline Smith, RETAIL REPRESENTATIVE Medication Refill (Tamsulosin ) from Last 3 Months Immunizations Immunization Administration Dates Next Due COVID-19 (Pre-02/15) Pfizer Vaccine, mRNA, PF 01/18/2021,06/24/2020,06/03/2020 Hepatitis B CpG 01/16/2023,12/15/2022 INFLUENZA, SPLIT VIRUS, TRIV ALENT W/ PRESERVATIVE IM 01/19/2013 Influenza High-Dose Quadriva lent Preservative Free IM 03/13/2022,01/23/2021 Influenza High-Dose Trivalen t Preservative Free IM 01/20/2024,02/18/2019,01/17/2018 Influenza Quadrivalent Adjuv anted Preservative Free IM 12/31/2022 Influenza Quadrivalent MDCK Preservative Free IM 02/10/2017 Influenza Quadrivalent Preservative Free IM 06/2010 Influenza Quadrivalent w/ Preservative IM 2015 Influenza Split (Incl. Purif ied Surface Antigen) 02/10/2010 Influenza, Unspecified Formulation 03/26/2016,,04/26/2006 Pneumococcal conjugate PCV13 09/29/2018 Pneumococcal conjugate PCV20 06/06/2024 Pneumococcal polysaccharide PPSV23 08/09/2010 RSV Vaccine (bivalent) 05/25/2023 Tdap 09/27/2021,05/23/2011,06/22/2008 Zoster recombinant 11/26/2020,01/17/2018 Family History Medical History Relation Comments Obesity Brother Pacemaker Father Cancer Mother Multiple sclerosis Mother Relation Status Comments Brother Alive Father Mother Social History Tobacco Use Types Packs/Day Years Used Date Smoking Tobacco: Never Smokeless Tobacco: Never Tobacco Cessation:Counseling Given: Not Answered Alcohol Use Standard Drinks/Week Comments Yes 2 [...] Orientation Bisexual 10/29/2022 11 :58 AM EDT Last Filed Vital Signs Vital Sign Reading Time Taken Comments Blood Pressure 140/82 11/09/2024 12:57 PM EDT Pulse 65 11/09/2024 12:57 PM EDT Temperature 36.5 C (97.7 F) 11/09/2024 12:57 PM EDT Respiratory Rate 16 11/08/2024 2:39 PM EDT Oxygen Saturation 72% 11/09/2024 12:57 PM EDT Inhaled Oxygen Concentration - - Weight 61.1 kg (134 lb 9.6 oz) 11/09/2024 12:57 PM EDT Height 172.7 cm (5' 8 ) 10/06/2024 9:01 PM EDT Body Mass Index 20.47 10/06/2024 9:01 PM EDT Plan of Treatment Upcoming Encounters Date Type Department Care Team (Late st Contact Info) Description 01/09/2025 11:10 AM EDT Office Visit [facility] Internal [facility] 14 [facility] [address] [place] [phone] Rosaline Smith NP 14 [facility] [address] [place] [phone] [email or web address] 07/17/2025 3:30 PM EDT Office Visit [facility] 14 [facility] [address] [place] [address] Rosaline Smith NP [address] [place] [phone] [email or web address] Health Maintenance Due Date Last Done Comments HEPATITIS A VACCINES (1 of 2 - Risk 2-dose series) 07[birth year]09/1969 COLOGUARD 1997 FIT TEST 1997 FOBT 1997 SIGMOIDOSCOPY 1997 VIRTUAL COLONOSCOPY 1997 BLOOD PRESSURE 05/12/2025 11/09/2024 DEPRESSION SCREENING 07/06/2025 07/06/2024 CREATININE LEVEL 11/07/2025 11/07/2024, 02/2025, 08/03/2024, Additional history exists POTASSIUM LEVEL 11/07/2025 11/07/2024, 09/24, 08/03/2024, Additional history exists LIPID PANEL 01/24/2029 01/25/2024, 09/25, 10/20/2022, Additional history exists Adult Td,Tdap Booster 09/28/2031 09/27/2021 , 05/23/2011, 06/22/2008 COLONOSCOPY 06/02/2033 06/02/2023, 06/07/2012 COLORECTAL CANCER SCREENING 06/02/2033 ZOSTER VACCINES Completed 11/26/2020, 01/17/2018 HEPATITIS C SCREENING Completed 04/13/2022 , 06/12/2021, 02/22/2020 RSV VACCINE Completed 05/25/2023 PNEUMOCOCCAL VACCINES (50+ years) Completed 06/06/2024, 09/29/2018, 08/09/2010 COVID-19 VACCINE Completed 07/21/2024, , 01/29/2023, Additional history exists SMOKING STATUS SCREENING (Once After 26 Yrs) Completed 11/30/2024 HIB VACCINES Aged Out No longer eligi ble based on patient's age to complete this topic MENINGOCOCCAL VACCINES (ACWY) Aged Out No longer eligible based on patient's age to complete this topic MENINGOCOCCAL VACCINES (B) Aged Out N o longer eligible based on patient's age to complete this topic Medical Devices Not on file Procedures Procedure Name Priority Date/Time Associated Diagnosis Comments TOXICOLOGY SCREEN, URINE STAT 11/08/2024 1:18 AM EDT ETHANOL, BLOOD STAT 11/07/2024 11:37 PM EDT LFTS (HEPATIC PANEL) STAT 11/07/2024 11:37 PM EDT BASIC METABOLIC PANEL STAT 11/07/2024 11:37 PM EDT CBC AND DIFFERENTIAL STAT 11/07/2024 11:37 PM EDT URINALYSIS W/REFLEX URINE CULTURE STAT 10/05/2024 1:37 AM EDT ECG 12-LEAD STAT 10/04/2024 6:44 PM EDT ACETAMINOPHEN LEVEL STAT 10/04/2024 6 :37 PM EDT ETHANOL, BLOOD STAT 10/04/2024 6:37 PM EDT LIPASE STAT 10/04/2024 6:37 PM EDT LFTS (HEPATIC PANEL) STAT 10/04/2024 6:37 PM EDT BASIC METABOLIC PANEL STAT 10/04/2024 6:37 PM EDT CBC AND DIFFERENTIAL STAT 10/04/2024 6:37 PM EDT LIPID PANEL Routine 01/25/2024 10:49 AM EDT Screening for hyperlipidemia COLONOSCOPY FOR RESULT ENTRY ONLY Routine 06/02/2023 2:27 PM EST HEPATITIS C ANTIBODY, QUALITATIVE Routine 06/12/2021 11:59 AM EST Elevated liver function tests from Last 3 Months or Most Recently Relevant to Health Maintenance Results * (ABNORMAL) Toxicology screen, urine (11/08/2024 1:18 AM EDT) URINE CANNABINOIDS Positive(A) NONE DETECTED [facility] Comment:Cutoff: 50 ng/mL URINE COCAINE METAB NONE DETECTED NONE DETECTED [facility] Comment:Cutoff: 300 ng/mL URINE AMPHETAMINES NONE DETECTED NONE DETECTED [facility] Comment:Cutoff: 1000 ng/mL URINE METHADONE NONE DETECTED NONE DETECTED [facility] Comment:Cutoff: 300 ng/mL URINE OPIATES NONE DETECTED NONE DETECTED [facility] Comment:Cutoff: 300 ng/mL URINE PHENCYCLIDINE NONE DETECTED NONE DETECTED [facility] Comment:Cutoff: 25 ng/mL URINE OXYCODONE NONE DETECTED NONE DETECTED [facility] Comment:Cutoff: 300 ng/mL URINE BARBITURATES NONE DETECTED NONE DETECTED [facility] Comment:Cutoff: 200 ng/mL URINE BENZODIAZEPINE NONE DETECTED NONE DETECTED [facility] Comment:Cutoff: 200 ng/mL URINE BUPRENORPHINE NONE DETECTED NONE DETECTED [facility] Comment:Cutoff: 5 ng/mL Fentanyl, urine NONE DETECTED NONE DETECTED [facility] Comment: Cutoff: 5 ng/mL INTERPRETATION FOR TOXICOLOGY PANEL: These results are unconfirmed and should be used for Medical Treatment purposes only. Urine (Urine) 11/08/2024 1:1 8 AM EDT 11/08/2024 1:29 AM EDT Chan Garcia MD URINE ORDERABLES Final Result Performing Organization Address City/[facility] Co de Phone Number [address] [address] * Ethanol, blood (11/07/2024 11:37 PM EDT) Only the most recent of2 resultswithin the time period is included. Pathologist [facility] ETHANOL <10 <10 mg/dL [facility] Blood 11/07/2024 11:3 7 PM EDT 11/07/2024 11:54 PM EDT us Chan Garcia MD LAB BLOOD ORDERABLES Final Resul t Performing Organization Address [facility] Co de Phone Number [address] [address] * LFTs (hepatic panel) (11/07/2024 11:37 PM EDT) Only the most recent of2 resultswithin the time period is included. ALKALINE PHOSPHATASE 59 39 - 117 U/L [facility] TOTAL BILIRUBIN 0.7 0.0 - 1.2 mg/dL [facility] DIRECT BILIRUBIN 0.2 0.0 - 0.2 mg/dL [facility] Bilirubin (Indirect) 0.5 0 - 1.5 mg/dL [facility] AST 15 0 - 37 U/L [facility] ALT 13 0 - 40 U/L [facility] TOTAL PROTEIN 6.7 6.5 - 8.0 g/dL [facility] ALBUMIN 4.0 3.9 - 4.8 g/dL [facility] GLOBULIN 2.7 1 - 4.8 g/dL [facility] A/G Ratio 1.48 1.00 - 4.80 RATIO [facility] Blood 11/07/2024 11:3 7 PM EDT 11/07/2024 11:54 PM EDT us Chan Garcia MD LAB BLOOD ORDERABLES Final Resul t [facility] [address] [place] [address] * (ABNORMAL) CBC and differential (11/07/2024 11:37 PM EDT) Only the most recent of2 resultswithin the time period is included. WBC 6.71 4.00 - 11.00 K/uL [facility] RBC 3.91(L) 4.50 - 5.90 M/uL [facility] HGB 13.6 13.5 - 17.5 g/dL [facility] HCT 39.5(L) 41.0 - 53.0 % [facility] PLT 180 150 - 450 K/uL [facility] MCV 101.0(H) 80.0 - 100.0 fL [facility] MCH 34.8(H) 27.0 - 31.0 pg [facility] MCHC 34.4 32.0 - 36.0 g/dL [facility] RDW 12.1 11.5 - 14.5 % [facility] MPV 11.0 8.4 - 12.0 fL [facility] NRBC 0.00 0.00 /100 WBCs [facility] ABSOLUTE NRBC 0.00 0.00 K/uL [facility] DIFF METHOD Auto [facility] NEUTS 61.7 48.0 - 76.0 % [facility] LYMPHS 26.8 18.0 - 41.0 % [facility] MONOS 9.2 4.0 - 11.0 % [facility] EOS 1.3 0.0 - 5.0 % [facility] BASOS 0.6 0.0 - 1.5 % [facility] Granulocytes, immature (%) 0.4 0.0 - 0.9 % [facility] ABSOLUTE NEUTS 4.13 1.92 - 7.60 K/uL [facility] ABSOLUTE LYMPHS 1.80 0.72 - 4.10 K/uL [facility] ABSOLUTE MONOS 0.62 0.16 - 1.10 K/uL [facility] ABSOLUTE EOS 0.09 0.00 - 0.50 K/uL [facility] ABSOLUTE BASOS 0.04 0.00 - 0.15 K/uL [facility] Granulocytes, immature 0.03 0.00 - 0.09 K/uL [facility] Blood 11/07/2024 11:3 7 PM EDT 11/07/2024 11:54 PM EDT us Chan Garcia MD LAB BLOOD ORDERABLES Final Resul t Performing Organization Address City/[facility]/ZIP Co de Phone Number [address] [address] * (ABNORMAL) Basic metabolic panel (11/07/2024 11:37 PM EDT) Only the most recent of2 resultswithin the time period is included. SODIUM 140 133 - 146 mmol/L [facility] [facility] 104 96 - 108 mmol/L [facility] POTASSIUM 3.7 3.3 - 5.1 mmol/L [facility] CO2 27 21 - 35 mmol/L [facility] BUN 18 6 - 19 mg/dL [facility] CREATININE 1.10 0.5 - 1.5 mg/dL [facility] GLUCOSE 109(H) 70 - 99 mg/dL [facility] CALCIUM 9.6 8.4 - 10.3 mg/dL [facility] EGFR 71 >59 mL/min/1.7 3m2 [facility] Comment:Estimated glomerular filtration rate calculated using the CKD-EPI refit equation. ANION GAP 13 10 - 20 mmol/L [facility] Blood 11/07/2024 11:3 7 PM EDT 11/07/2024 11:54 PM EDT us Chan Garcia MD LAB BLOOD ORDERABLES Final Resul t [address] [address] * Urinalysis w/reflex Urine Culture (10/05/2024 1:37 AM EDT) COLOR Yellow Yellow [facility] CLARITY Clear [facility] GLUCOSE Negative Negative [facility] BILI Negative Negative [facility] KETONES Negative Negative [facility] SPECIFIC GRAVITY 1.010 1.005 - 1.030 [facility] BLOOD Negative Negative [facility] PH 6.5 5.0 - 8.0 [facility] Protein-UA Negative Negative [facility] NITRITE Negative Negative [facility] Leukocyte esterase, ur Negative Negative [facility] Urine (Urine) 10/05/2024 1:3 7 AM EDT 10/05/2024 2:01 AM EDT us Fransico Tineo PA-C URINE ORDERABLES Final Resul t Performing Organization Address [facility] Co de Phone Number [address] [address] * ECG 12-LEAD (10/04/2024 6:44 PM EDT) Ventricular Rate EKG/MIN 57 BPM [facility] Atrial Rate 57 BPM [facility] AR Interval 206 ms [facility] QRS Duration 84 ms [facility] QT Interval 430 ms [facility] QTC Interval 418 ms [facility] P [place] 48 degrees [facility] R Wave [place] -26 degrees [facility] T Wave [place] -43 degrees [facility] 10/04/2024 6:44 PM EDT 10/05/2024 3:38 PM EDT Narrative [facility] - 10/05/2024 3:38 PM EDT Sinus bradycardia Voltage criteria for left ventricular hypertrophy Nonspecific ST and T wave abnormality Abnormal ECG When compared with ECG of 16-Feb-2010 09:07, QRS axis Shifted left Non-specific change in ST segment in Anterior leads ST now depressed in Lateral leads T wave inversion more evident in Inferior leads Confirmed by Lalo Hankins ([id number]) on 10/05/2024 3:38:13 PM us Fransico Tineo PA-C ECG ORDERABLES Final Result Performing Organization Address City/[facility] Co de Phone Number [email or web address] * (ABNORMAL) Lipase (10/04/2024 6:37 PM EDT) LIPASE 96(H) 16 - 63 U/L [facility] Blood 10/04/2024 6:37 PM EDT 10/04/2024 6:41 PM EDT Fransico Tineo PA-C LAB BLOOD ORDERABLES Final R esult Performing Organization Address [facility] Co de Phone Number [address] [address] * (ABNORMAL) Acetaminophen level (10/04/2024 6:37 PM EDT) ACETAMINOPHEN <5.0(L) 15.0 - 30.0 ug/mL [facility] Blood 10/04/2024 6:37 PM EDT 10/04/2024 6:41 PM EDT Fransico Tineo PA-C LAB BLOOD ORDERABLES Final R esult Performing Organization Address [facility] de Phone Number [address] [address] * (ABNORMAL) Lipid panel (01/25/2024 10:49 AM EDT) HDL 57 mg/dL [facility] Comment: Interpretation <40 mg/dL: Low HDL cholesterol (major risk factor for CHD) Greater than or equal to 60 mg/dL: High HDL cholesterol ( negative risk factor for CHD) HDL - cholesterol is affected by a number of factors, e.g. smoking, excerise, hormones, sex and age. CHOLESTEROL 187 0 - 240 mg/dL [facility] TRIGLYCERIDES 71 30 - 160 mg/dL [facility] LDL 116 50 - 129 mg/dL [facility] Comment: LDL levels in terms of risk for coronary heart disease: <100 mg/dL: Optimal 100-129 mg/dL: Near or above optimal 130-159 mg/dL: Borderline high 160-189 mg/dL: High >190 mg/dL: Very High CARDIAC RISK RATIO 3.3(L) 3.4 - 5.0 C [facility] Blood 01/25/2024 10:4 9 AM EDT 01/25/2024 10:52 AM EDT us Rosaline Smith NP LAB BLOOD ORDERABLES Final Result Performing Organization Address City/[facility] Co de Phone Number [address] [address] * COLONOSCOPY FOR RESULT ENTRY ONLY (06/02/2023 2:27 PM EST) Unknown Unknown MD HEALTH MAINTENANCE Final Resu lt * Hepatitis C antibody, qualitative (06/12/2021 11:59 AM EST) HCV NON-REACTIV E NON-REACTI VE [facility] Blood 06/12/2021 11:5 9 AM EST 06/12/2021 12:06 PM EST Rosaline Smith NP LAB BLOOD ORDERABLES Final Result Performing Organization Address [facility] de Phone Number [address] [address] from Last 3 Months or Most Recently Relevant to Health Maintenance Insurance MEDICARE PART A & B [facility] MEDICARE ENHANCE SUPPLEMENT [facility] Address: [facility] [address] [place] [address] MEDICARE PART A & B [facility] MED[facility]ARE ENHANCE SUPPLEMENT [facility] Address[facility] [address] [place] [address] MEDICARE PART A & B Member Subscriber Plan / Payer (Ef fective 2017-Present) Name:Ulisses Kitchen Member ID:[id number] Relation to Subscriber:Self Name:Ulisses Kitchen Subscriber ID:[id number] Payer ID:[id number] Group ID:Not on file Type:Medicare Address: [facility] [employer] [facility] [address] [place] [phone] [facility] MEDICARE ENHANCE SUPPLEMENT [facility] Address[facility] [address] [place] [address] MEDICARE PART A & B Member Subscriber Plan / Payer ( fective 2017-Present) Name:Ulisses Kitchen Member ID:[id number] Relation to Subscriber:Self Name:Ulisses Kitchen Subscriber ID:[id number] Payer ID:[id number] Group ID:Not on file Type:Medicare Address: [facility] [employer] [facility] [address] [place] [id number] [facility] MEDICARE ENHANCE SUPPLEMENT [facility] Address: [facility] [address] [place] [address] MEDICARE PART A & B [facility] MEDICARE ENHANCE SUPPLEMENT MEDICARE PART A & B [facility] MEDICARE ENHANCE SUPPLEMENT [facility] Address: [facility] [address] [place] [address] MEDICARE PART A & B [employer] MEDICARE ENHANCE SUPPLEMENT [facility] Address: [facility] [address] [place] [address] MED[place]ARE [id number] [facility] MEDICARE ENHANCE SUPPLEMENT MEDICARE PART A & B 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 Signed HCP Care Teams Swing Grinder Relationship Specialty Start Date End Date Rosaline Smith NP [address] [address] [email or web address] PCP - General Internal Medicine 11/07/21 Rosaline Smith NP [address] [place] [phone] [email or web address] Historical LMR Provider 02/13/17 Neeru Vaughn CNP [address] [place] [phone] [email or web address] Historical LMR Provider 02/13/17 Que Madsen MD [address] [place] [phone] [email or web address] Historical LMR Provider 02/13/17 Que Madsen MD [address] [place] [phone] [email or web address] Insurance Assigned Provider 08/27/18 Rosaline Smith NP [address] [place] [phone] [email or web address] Insurance Assigned Provider 07/30/24 Additional Source Comments The information contained in this document represents components of the legal health record. It is not the complete legal health record.[facility]
--- OUTSIDE RECORDS SUMMARY | 2024-12-05 18:11 | XMS_ITS | Clinical Summary ---
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 1 Active tadalafil (CIALIS) 20 MG tablet Take 20 mg by mouth daily as needed. 1 Active tamsulosin (FLOMAX) 0.4 MG capsule 1 Active melatonin 3 MG Tab tablet Take 10 mg by mouth nightly. Active Cannabinoids (THC FREE PO) Take 5 mg by mouth. Patient states he takes a edible with 5 mg THC and 2 MG of melatonin Active Social History Tobacco Use Types Packs/Day Years Used Date Smoking Tobacco: Never Smokeless Tobacco: Never Alcohol Use Standard Drinks/Week Comments Not Currently 0 (1 standard drink = 0.6 oz pur e alcohol) Sex and Gender Information Value Date Recorded Sex Assigned at Not on file Legal Sex Male 12:07 PM EDT Gender Identity Not on file Sexual Orientation Not on file Last Filed Vital Signs Vital Sign Reading Time Taken Comments Blood Pressure 140/70 02/06/2021 11:01 AM EDT Pulse 75 02/06/2021 11:01 AM EDT Temperature 36.4 C (97.6 F) 02/06/2021 11:01 AM EDT Respiratory Rate - - Oxygen Saturation 94% 02/06/2021 11:01 AM EDT Inhaled Oxygen Concentration - - Weight 65.8 kg (145 lb) 02/06/2021 11:01 AM EDT Height 177.8 cm (5' 10 ) 02/06/2021 11:01 AM EDT Body Mass Index 20.81 02/06/2021 11:01 AM EDT Plan of Treatment Health Maintenance Due Date Last Done Comments Hepatitis C Virus Screening 1950 DTaP/Tdap/Td Vaccines (1 - Tdap) 07/09/1971 Colonoscopy 1997 Pneumococcal Vaccines 50+ (1 of 1 - PCV) 2002 Zoster (Shingles) Vaccine (1 of 2) 2002 COVID-19 Vaccine ( - season) 2023 01/18/2021, 06/24/2020, 06/03/2020 Influenza Vaccine 11/24/2024 02/18/2019, , 01/19/2013, Additional history exists RSV Vaccine 60 years and older and Patients (1 - 1-dose 75+ series) 07/09/2027 Hepatitis B Vaccines Aged Out No long er eligible based on patient's age to complete this topic Insurance MEDICARE PART A & B [facility] Care Teams Ase Master Mechanic Relationship Specialty Start Date End Date Pcp, No PCP - General General Medicine 02/04/21
--- OUTSIDE RECORDS SUMMARY | 2024-12-05 18:11 | XMS_ITS ---
Author Name [facility] Organization Unknown History of Medication Use Medication Directions Dispensed Refills Start Date End Date Stat us tadalafil (CIALIS) 20 MG tablet Take 20 mg by mouth daily as needed. 02/03/2021 active finasteride (PROSCAR) 5 MG tablet 01/24/2021 active lisinopril (PRINIVIL,ZeSTRIL) 10 MG tablet 20 mg. 01/23/2021 active hydrOXYzine HCl (ATARAX) 10 MG tablet 11/27/2020 act maxine Allergies Allergen Reaction Severity Comment Documented Date Source Statu s CAT HAIR EXTRACT COUGH 01/17/2020 [facility] acti ve GRAMINEAE POLLENS COUGH [facility] Encounters Encounter Type Encounter Reason Primary Diagnosis Location Date Ambulatory Hypersomnia, unspecified [facility] 03/31/2021 Ambulatory Hypersomnia, unspecified [facility] 03/12/2021 Ambulatory Hypersomnia, unspecified [facility] 03/11/2021 Ambulatory Hypersomnia, unspecified [facility] 02/06/2021 Care Team Organization Name Specialty Phone Email Start Date End Da te [facility] PCP,No Primary Care 03/31/2021 12/13/2023 [facility] NO PCP Primary Care 02/06/2021 03/12/2021
--- NOTE | 2024-12-05 18:13 | PC.NURSE ---
patient presents to the ED from [facility] on sect 12. per ems patient has been having increased paranoia, insomnia, increased confusion and increased mental decline. patient goes by she/her, preferred name is jerry. patient presents with pressured speech, noted to be satting in the mid 70s on room air, lips noted to be cyanotic, patient placed on oxymask 11L, sat came up to 93%. provider at bedside, IV access obtained in the left FA #[id number]., labs drawn and obtained. patient changed into hospital attire due to sect 12 status. patient answers questions with redirection, denies any pain. RT at bedside for low o2 sats, CXR completed. patient is cooperative with all care. patient speaks about being under attack from various things such as lorazepam. patient occasionally states that he does not care what is done to her ie EKG/Blood work. patient is speaking with her eye closed
[2024-12-05 18:25] LABS: Alanine Aminotransferase 19 U/L (0-40); Albumin Level 4.3 g/dL (3.5-5.0); Alkaline Phosphatase 57 U/L (39-117); Anion Gap 15 (12-20); Aspartate Amino Transferase 30 U/L (5-37); Blood Urea Nitrogen 19 mg/dL (9-16); Calcium 9.7 mg/dL (8.4-10.2); Carbon Dioxide 21 mmol/L (22-29); Chloride 107 mmol/L (96-108); Creatinine Clr Calc Pharmacy 65.4; Estimated Glomerular Filt Rate > 60; Magnesium 2.1 mg/dL (1.6-2.6); Potassium 3.8 mmol/L (3.3-5.1); Sodium 139 mmol/L (135-145); Total Protein 7.1 g/dL (6.5-8.0)
[2024-12-05 18:32] LABS: Troponin-I High Sensitivity 17.5 ng/L (<3.5-35.0)
[2024-12-05 18:34] LABS: D Dimer High Sensitivity 204 NG/ML; INTERNATIONAL NORM RATIO 1.1 (0.9-1.1); Prothrombin Time 12.5 SEC (10.9-12.4)
[2024-12-05 19:38] VITALS: BP 202/108; PULSE 71; RESP 15; TEMP 37.2; O2SAT 96
[2024-12-05 19:59] LABS: Appearance Urine Clear; Glucose Urine UA Negative (Negative); PH 7.0 (5.0-9.0); Specific Gravity - Urine 1.025 (1.005-1.025); UMIC TRIGGER UA YES
[2024-12-05 20:11] LABS: Cannabinoid Screen Urine POSITIVE (Not Detect)
[2024-12-05 20:44] LABS: ABG HCO3 22 mmol/L (22-26); ABG O2 % Saturation 97.0 %
[2024-12-05 20:48] VITALS: BP 141/108
[2024-12-05 21:05] VITALS: BP 144/111; PULSE 78; RESP 17; O2SAT 95
[2024-12-05 21:39] VITALS: O2SAT 93
--- NOTE | 2024-12-05 21:49 | PHA.MEDREC ---
Addendum entered by Mark Sargent RPh 12/05/24 21:54: Med rec reviewed Original Note: Pharmacy Consult ? Medication Reconciliation Pharmacy has completed the medication reconciliation. Patient is AMS. not able to speak with. Utilized claims to confirm med list.
[2024-12-05 21:57] LABS: ABG HCO3 24 mmol/L (22-26); ABG O2 % Saturation 99.0 %
[2024-12-05 21:57] LABS: ABG Refer to POC result
[2024-12-06] VITALS (12 sets, daily range): BP systolic 104–175; BP diastolic 78–108; PULSE 47–76; RESP 13–20; TEMP 36.1–37.1; O2SAT 90–98; BMI 18.4
--- NOTE | 2024-12-06 | ECG_ITS ---
Test Reason : bradycardia Blood Pressure : */* mmHG Vent. Rate : 44 BPM Atrial Rate : 44 BPM P-R Int : 198 ms QRS Dur : 84 ms QT Int : 516 ms P-R-T Axes : 57 -22 266 degrees QTcB Int : 441 ms Marked sinus bradycardia ST & T wave abnormality, consider inferolateral ischemia Abnormal ECG When compared with ECG of 05-Dec-2024 18:04, No significant change was found Referred By: Rafael Frey Electronically Signed By: Brandon Tejada
[2024-12-06] MEDS: 0.9 % Sodium Chloride Flush 3 ML SYRINGE IVFLUSH ×2 (00:09→20:01)
--- NOTE | 2024-12-06 00:11 | PM.IMHP ---
History of Present Illness Date of Service: 12/06/24 Attending physician on admission: Rafael Frey Chief Complaint: Agitated Ulisses Kitchen is a 74 years old man was brought to the emergency department on section 12 from home because he is having increased paranoia and agitation. He was found to be quite hypoxic, 76% on room air. HPI was when able to obtain directly from the patient due to altered mental status. He was not able to answer questions appropriately and uncooperative with the interview. According to prior ED note patient has a sleep disorder. 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 Patient Tobacco Use Status: Never used Tobacco Meds Allergies Allergy/AdvReac Type Severity Reaction Status Date / Time No Known Allergies Allergy Verified 12/05/24 18:02 Active Medications: Current Medications Acetaminophen (Acetaminophen 325 Mg Tablet) 975 mg PO Q6H PRN PRN Reason: Pain, Mild 1-3,fever,headache Emtricitabine/Tenofovir Alafenamide (Emtricitabine/Tenofov Alafenam Tablet) 1 tab PO DAILY [facility] Enoxaparin Sodium (Enoxaparin Sodium 40 Mg/0.4 Ml Syringe) 40 mg SUBCUT Q24H [facility] Finasteride (Finasteride 5 Mg Tablet) 5 mg PO DAILY [facility] Losartan Potassium (Losartan Potassium 50 Mg Tablet) 100 mg PO DAILY [facility]; Protocol Non-Formulary Medication (Trospium) 20 mg PO BID [facility] Non-Formulary Medication (Vibegron [Gemtesa]) 75 mg PO DAILY [facility] Omeprazole (Omeprazole 20 Mg Capsule.Dr) 20 mg PO BEDTIME [facility] Sodium Chloride (0.9 % Sodium Chloride Flush 3 Ml Syringe) 3 ml IVFLUSH QSHIFT [facility] Last Admin: 12/06/24 00:09 Dose: 3 ml Tamsulosin HCl (Tamsulosin Hcl 0.4 Mg Capsule) 0.8 mg PO BEDTIME [facility] Valacyclovir HCl (Valacyclovir Hcl 500 Mg Tablet) 500 mg PO DAILY [facility] Venlafaxine HCl (Venlafaxine Hcl Er 37.5 Mg Cap.Er.24h) 37.5 mg PO DAILY [facility] Home Medications ?Medication ?Instructions ?Recorded ?Confirmed ?Last Taken ?Type emtricitabine 200 mg-tenofovir 1 tab PO DAILY 12/05/24 12/05/24 Unknown History alafenamide fumarate 25 mg tablet (Descovy) finasteride 5 mg tablet 5 mg PO DAILY 12/05/24 12/05/24 Unknown History hydroxyzine pamoate 25 mg capsule 25 mg PO BEDTIME 12/05/24 12/05/24 Unknown History lorazepam 0.5 mg tablet 0.5 mg PO DAILY PRN anxiety 12/05/24 12/05/24 Unknown History losartan 100 mg tablet 100 mg PO DAILY 12/05/24 12/05/24 Unknown History omeprazole 20 mg capsule,delayed 20 mg PO BEDTIME 12/05/24 12/05/24 Unknown History release tamsulosin 0.4 mg capsule 0.8 mg PO BEDTIME 12/05/24 12/05/24 Unknown History trospium 20 mg tablet 20 mg PO BID 12/05/24 12/05/24 Unknown History valacyclovir 500 mg tablet 500 mg PO DAILY 12/05/24 12/05/24 Unknown History venlafaxine 37.5 mg 37.5 mg PO DAILY 12/05/24 12/05/24 Unknown History capsule,extended release 24 hr vibegron 75 mg tablet (Gemtesa) 75 mg PO DAILY 12/05/24 12/05/24 Unknown History Physical Exam Vital Signs and Narrative: Vital Signs: Last Vital Signs Temp 98.7 F 12/06/24 00:04 Pulse 68 12/06/24 00:04 Resp 14 12/06/24 00:04 BP 144/111 H 12/05/24 21:05 Pulse Ox 94 12/06/24 00:04 O2 Del Method Oxymask 12/06/24 00:04 O2 Flow Rate 6 12/06/24 00:04 BMI result Body Mass Index 18.3 Constitutional - Awake and Alert, constantly talking. HEENT - PER, EOMI Heart - RRR, No murmurs Lungs - Normal lung expansion, Normal respiratory effort, No respiratory distress, CTA bilaterally Abdomen - NT / ND; +BS; No rebound or guarding - No CVA tenderness Extremities - no calf tenderness bilaterally, no swelling Musculoskeletal - Normal inspection, normal ROM Skin - Warm/Dry Neurological - Alert. Moving all extremities spontaneously. Normal speech. Psychological - Agitated, flights of ideas Results Labs 12/06/24 09:59 12/06/24 09:59 Labs: Laboratory Results - last 24 hr 12/05/24 12/05/24 12/05/24 18:03 19:52 20:40 MCV 97.5 MCH 34.3 H MCHC 35.2 RDW 11.8 Plt Count 178 MPV 10.9 Immature Gran % (Auto) 0.2 Neut % (Auto) 67.1 Lymph % (Auto) 23.0 [place] % (Auto) 8.3 Eos % (Auto) 0.8 Baso % (Auto) 0.6 Lymph # (Auto) 1.5 [place] # (Auto) 0.5 Eos # (Auto) 0.1 Baso # (Auto) 0.0 Abs Immat Gran (auto) 0.01 Absolute Neuts (auto) 4.3 Absolute Nucleated RBC 0.000 Nucleated RBC % (auto) 0.0 PT 12.5 H INR 1.1 D-Dimer High Sensitivty 204 O2 Saturation 97.0 ABG pH at Pt Temp 7.46 H ABG pCO2 at Pt Temp 31 L ABG pO2 at Pt Temp 90 ABG HCO3 22 ABG Base Excess (Actual) 0.1 Anion Gap 15 Estim Creat Clear Calc 65.4 Estimated GFR > 60 Random Glucose 91 Calcium 9.7 Magnesium 2.1 Total Bilirubin 1.2 H AST 30 ALT 19 Alkaline Phosphatase 57 Total Protein 7.1 Albumin 4.3 Urine Color Yellow Urine Appearance Clear Urine pH 7.0 Ur Specific [place] 1.025 Urine Protein 30 (1+) H Urine Glucose (UA) Negative Urine Ketones Trace Urine Blood Negative Urine Nitrite Negative Ur Leukocyte Esterase Negative Urine RBC 0-2 Urine WBC 0-5 Ur Squamous Epith Cells 0-2 Urine Bacteria None Seen Hyaline Casts 0-2 Urine Opiates Screen Not Detected Ur Buprenorphine Scrn Not Detected Ur Oxycodone Screen Not Detected Urine Methadone Screen Not Detected Urine Fentanyl Screen Not Detected Ur Barbiturates Screen Not Detected Ur Phencyclidine Scrn Not Detected Ur Amphetamines Screen Not Detected U Benzodiazepines Scrn Not Detected Urine Cocaine Screen Not Detected U Marijuana (THC) Screen POSITIVE H Ethyl Alcohol < 10 08/12/25 21:53 MCV MCH MCHC RDW Plt Count MPV Immature Gran % (Auto) Neut % (Auto) Lymph % (Auto) [place] % (Auto) Eos % (Auto) Baso % (Auto) Lymph # (Auto) [place] # (Auto) Eos # (Auto) Baso # (Auto) Abs Immat Gran (auto) Absolute Neuts (auto) Absolute Nucleated RBC Nucleated RBC % (auto) PT INR D-Dimer High Sensitivty O2 Saturation 99.0 ABG pH at Pt Temp 7.43 ABG pCO2 at Pt Temp 35 ABG pO2 at Pt Temp 97 ABG HCO3 24 ABG Base Excess (Actual) 0.5 Anion Gap Estim Creat Clear Calc Estimated GFR Random Glucose Calcium Magnesium Total Bilirubin AST ALT Alkaline Phosphatase Total Protein Albumin Urine Color Urine Appearance Urine pH Ur Specific [place] Urine Protein Urine Glucose (UA) Urine Ketones Urine Blood Urine Nitrite Ur Leukocyte Esterase Urine RBC Urine WBC Ur Squamous Epith Cells Urine Bacteria Hyaline Casts Urine Opiates Screen Ur Buprenorphine Scrn Ur Oxycodone Screen Urine Methadone Screen Urine Fentanyl Screen Ur Barbiturates Screen Ur Phencyclidine Scrn Ur Amphetamines Screen U Benzodiazepines Scrn Urine Cocaine Screen U Marijuana (THC) Screen Ethyl Alcohol Assessment and Plan (1) Hypoxia: Status: Acute (2) Altered mental status: Qualifiers: Altered mental status type: unspecified Qualified Code(s): R41.82 - Altered mental status, unspecified Status: Acute Plan Ulisses Kitchen is a 74 years old man presents with: Hypoxic respiratory failure, unclear etiology. Patient is speaking in full sentences. Lungs are clear to auscultation. ABGs showed no respiratory acidosis. PO2 normal x2 (on 2L/min and 6 L/min) Chest CTA showed clear lungs and no PE. No anemia. Urine toxicology positive for marijuana. Continue high-flow. Altered mental status. ? Psychosis/manic episode. Head CT scan is negative. Receiving multiple doses of Haldol and benzos. Flumazenil given due to possible oversedation. Sectioned 12 by EMS. Psychiatric consult. History of HIV. Continue Descovy. Essential hypertension. Continue losartan. Mood disorder. Continue venlafaxine. Overreactive bladder. Continue Gemtesa. Code status: Full. DVT prophylaxis: Lovenox Patient will need hospitalization for at least 2 midnights for hypoxic respiratory failure treatment with supplemental oxygen and urgent evaluation by psychiatric service. Quality Stroke Does the patient have a stroke diagnosis?: No VTE Prior VTE?: No VTE Risk Level:: Medical - moderate - high VTE Device Contraindication: Treatment Not Indicated VTE Drug Contraindication: N/A - Med Ordered
[2024-12-06] MEDS: diazePAM 10 MG/2 ML CARTRIDGE 5 MG IVPUSH (00:27)
--- NOTE | 2024-12-06 00:47 | PC.NURSE ---
patient very manic continuously yelling out, medicated per JUN and pt O2 dropped to [address] Plaza notified and placed on 15L oxymask. Dr. Plaaz at bedside VBG obtained and Flumazenil given. patient awake and talking 0051 O2 89% 15L oxymask Resp at bedside to place Hi flow
[2024-12-06 00:50] LABS: Venous Blood Gas Refer to POC result
[2024-12-06 00:54] LABS: VBG HCO3 24 mmol/L (22-26); VBG O2 % Saturation 91.0 %
[2024-12-06 01:48] LABS: Venous Blood Gas Refer to POC result
[2024-12-06 01:49] LABS: Carbon Monoxide POC 2.6 %
[2024-12-06 01:52] LABS: VBG HCO3 24 mmol/L (22-26); VBG O2 % Saturation 99.0 %
--- NOTE | 2024-12-06 02:10 | PC.NURSE ---
Ignacio heart rate noted to be at 44, EKG obtained Dr. Plaza notified
[2024-12-06 02:22] LABS: Hematocrit 42.2 % (42.0-52.0); Hemoglobin 15.4 g/dl (14.0-18.0); Imm Gran Abs Auto 0.02 X10*3/uL (0.00-0.03); Imm Gran Pct Auto 0.3 % (0.0-0.4); Lymphocytes Absolute Auto 1.7 X10*3/uL (1.2-4.9); MANUAL DIFF FLAG NO; Mean Corpuscular HGB Conc 36.5 g/dl (31.0-36.0); Mean Corpuscular Hemoglobin 35.2 pg (27.0-33.0); Mean Corpuscular Volume 96.6 fL (80.0-98.0); NRBC Abs Auto 0.000 X10*3/uL (0.0-0.012); NRBC Pct Auto 0.0 /100WBC (0.0-0.2); Platelet Count 176 X10*3/uL (160-400); Red Blood Count 4.37 X10*6/uL (4.60-5.80); White Blood Count 6.3 X10*3/uL (4.8-10.8)
[2024-12-06 02:45] LABS: Troponin-I High Sensitivity 29.2 ng/L (<3.5-35.0)
[2024-12-06 02:50] LABS: Alanine Aminotransferase 24 U/L (0-40); Albumin Level 4.5 g/dL (3.5-5.0); Alkaline Phosphatase 60 U/L (39-117); Anion Gap 14 (12-20); Aspartate Amino Transferase 37 U/L (5-37); Blood Urea Nitrogen 19 mg/dL (9-16); Calcium 9.6 mg/dL (8.4-10.2); Carbon Dioxide 22 mmol/L (22-29); Chloride 108 mmol/L (96-108); Creatinine Clr Calc Pharmacy 60.2; Estimated Glomerular Filt Rate > 60; Magnesium 2.3 mg/dL (1.6-2.6); Potassium 3.4 mmol/L (3.3-5.1); Sodium 141 mmol/L (135-145); Total Protein 7.2 g/dL (6.5-8.0)
[2024-12-06 03:03] LABS: Resp Syncy Virus RNA Qual PCR NEGATIVE (Negative); SARS COV2 PCR INHOUSE NEGATIVE (Negative)
[2024-12-06 03:04] LABS: Thyroid Stimulating Hormone 1.44 uIU/mL (0.32-4.0)
[2024-12-06 03:06] LABS: Vitamin B12 876 pg/mL (200-900)
--- NOTE | 2024-12-06 07:00 | CA_ITS ---
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 The visually estimated ejection fraction is between 55-60%. - Normal right ventricular cavity size and systolic function. - Normal left ventricular filling pressures. Findings Left Ventricle Normal left ventricular size, thickness, and systolic function. The visually estimated ejection fraction is between 55-60%. There is no evidence of regional wall motion abnormalities. Abnormal diastolic function is noted. Spectral Doppler is indicative of an impaired relaxation filling pattern. Normal left ventricular filling pressures. Right Ventricle Normal right ventricular cavity size and systolic function. Atria The left atrium is mildly dilated. The right atrium was not well visualized. Aortic Valve Normal aortic valve structure and function. There is no aortic valve stenosis. There is trace (trivial) aortic valve regurgitation. Mitral Valve The mitral valve appears normal. There is trace mitral valve regurgitation. There is no mitral valve stenosis. Pulmonic Valve The pulmonic valve is normal. There is no pulmonic valve regurgitation. Tricuspid Valve Normal tricuspid valve structure. There is trace tricuspid valve regurgitation. Normal right atrial pressure. There is no evidence of pulmonary hypertension. Great Vessels All visible segments of the aorta are normal in size. The visualized portions of the pulmonary artery and branches are normal. Venous The inferior vena cava is normal in size and collapses greater than 50% with inspiration. Pericardium/Pleural There is no evidence of pericardial effusion. Prior Study Comparison No prior study available for comparison. Measurements 2D Linear Measurements IVSd: 0.96 0.6-0.9/0.6-1.0 cm LVIDd: 3.94 3.9-5.3/4.2-5.9 cm LVIDd Index: 2.35 2.4-3.2/2.2-3.1 cm/m2 LVIDs: 2.34 2.0-3.6 cm LVPWd: 1.04 0.7-1.1 cm LV Mass: 154.25 67-162/88-224 g LV Mass Index: 91.81 43-95/49-115 g/m2 LVOT Diam: 2.20 3.0+(-)1.3 cm 2D Systolic Function EF 4C: 55.20 >55% EF 2C: 55.20 >55% EF BiP: 55.20 >55% Mitral Valve MV Pk E: 0.27 MV PK A: 0.75 MV Decel Time: 207.00 E/A: 0.40 E'Lateral: 5.87 E'Medial: 3.59 E/E' Med: 7.60 E/E' Lat: 4.70 PHT: 61.00 MVA PHT: 3.61 Decel [place]: 1.32 Aortic Valve AoV Pk Bobby: 1.52 AoV Mn Bobby: 1.02 AoV VTI: 0.28 AoV Pk Grad: 9.00 Aov Mn Grad: 5.00 ATIF Cont.VTI: 3.02 LVOT LVOT Pk Bobby: 1.01 LVOT Mn Bobby: 0.68 LVOT VTI: 0.22 LVOT Pk Grad: 4.00 LVOT Mn Grad: 2.00 LVOT Diam: 2.20 LVOT Area: 3.80 Diastolic Function MV Pk E: 0.27 MV Pk A: 0.75 E/A: 0.40 E'Medial: 3.59 E/E' Med: 7.60 E' Laterial: 5.87 E/E' Lat: 4.70 Right Ventricle TAPSE (mm): 21.70 TVS' Bobby: 20.80 Tricuspid Valve TR Pk Bobby: 1.78 TR Pk Grad: 13.00 RA Press: 8.00 RVSP: 21.00 Great Vessels Aorta Sinus of Valsalva: 3.49 2.0-3.5 cm Ao Asc: 3.70 2.1-3.4 cm Updated in Other Vendor System with Status of Final Brandon Tejada MD electronically signed on 12/06/2024 6:33:59 PM with status of Final
--- NOTE | 2024-12-06 08:00 | MHC.EDTECH ---
patient requested urinal this medical supply technician assist him with the urinal. urine spilled on the bed changed patient linen and gave patient clean hospital gown. Nurse aware
[2024-12-06] MEDS: Venlafaxine HCl ER 37.5 MG CAP.ER.24H PO (08:37)
--- NOTE | 2024-12-06 09:37 | MHC.CM.PN ---
CM will wait to see pt. at a later time due to his altered mental status.
[2024-12-06 10:05] LABS: MANUAL DIFF FLAG NO
[2024-12-06 10:08] LABS: Hematocrit 44.5 % (42.0-52.0); Hemoglobin 16.0 g/dl (14.0-18.0); Imm Gran Abs Auto 0.02 X10*3/uL (0.00-0.03); Imm Gran Pct Auto 0.3 % (0.0-0.4); Lymphocytes Absolute Auto 1.8 X10*3/uL (1.2-4.9); Mean Corpuscular HGB Conc 36.0 g/dl (31.0-36.0); Mean Corpuscular Hemoglobin 34.9 pg (27.0-33.0); Mean Corpuscular Volume 96.9 fL (80.0-98.0); NRBC Abs Auto 0.000 X10*3/uL (0.0-0.012); NRBC Pct Auto 0.0 /100WBC (0.0-0.2); Platelet Count 172 X10*3/uL (160-400); Red Blood Count 4.59 X10*6/uL (4.60-5.80); White Blood Count 8.0 X10*3/uL (4.8-10.8)
[2024-12-06 10:38] LABS: Anion Gap 15 (12-20); Blood Urea Nitrogen 19 mg/dL (9-16); Calcium 10.0 mg/dL (8.4-10.2); Carbon Dioxide 27 mmol/L (22-29); Chloride 104 mmol/L (96-108); Creatinine Clr Calc Pharmacy 61.3; Estimated Glomerular Filt Rate > 60; Magnesium 2.1 mg/dL (1.6-2.6); Potassium 3.7 mmol/L (3.3-5.1); Sodium 142 mmol/L (135-145)
[2024-12-06] MEDS: Emtricitabine/Tenofov Alafenam TABLET 1 TAB PO (11:15)
--- NOTE | 2024-12-06 12:40 | P.PNIM_ITS ---
Subjective Subjective Date of Service: 12/06/24 Interval History: no complaints, fixated on lorazepam Physical Exam 2 Exam: Exam: General: AO X 3, no acute distress, confabulation, fixation on lorazepam, unable to provide good history Resp: CTA bilateral, no accessory muscles used CVS: S1,S2,RRR GI: soft, non tender, non distended Neuro: motor grossly intact, alert Psych: impaired insight Vital Signs: Vital Signs: Last Vital Signs Temp 97.0 F 12/06/24 11:05 Pulse 66 12/06/24 11:05 Resp 18 12/06/24 11:05 BP 137/86 12/06/24 11:05 Pulse Ox 95 12/06/24 11:05 O2 Del Method Oxymask 12/06/24 11:05 O2 Flow Rate 3 12/06/24 11:05 FiO2 60 12/06/24 00:57 BMI result Body Mass Index 18.4 Objective Data Active Medications Acetaminophen (Acetaminophen 325 Mg Tablet) 975 mg PO Q6H PRN PRN Reason: Pain, Mild 1-3,fever,headache Emtricitabine/Tenofovir Alafenamide (Emtricitabine/Tenofov Alafenam Tablet) 1 tab PO DAILY [facility] Last Admin: 12/06/24 11:15 Dose: 1 tab Documented By: MARI Enoxaparin Sodium (Enoxaparin Sodium 40 Mg/0.4 Ml Syringe) 40 mg SUBCUT Q24H [facility] Last Admin: 12/06/24 11:15 Dose: 40 mg Documented By: MARI Finasteride (Finasteride 5 Mg Tablet) 5 mg PO DAILY [facility] Last Admin: 12/06/24 08:37 Dose: 5 mg Documented By: PATRICIA Hydroxyzine HCl (Hydroxyzine Hcl 25 Mg Tablet) 25 mg PO BEDTIME [facility] Lorazepam (Lorazepam 0.5 Mg Tablet) 0.5 mg PO DAILY PRN PRN Reason: Anxiety Last Admin: 12/06/24 08:35 Dose: 0.5 mg Documented By: PATRICIA Losartan Potassium (Losartan Potassium 50 Mg Tablet) 100 mg PO DAILY [facility]; Protocol Last Admin: 12/06/24 08:34 Dose: 100 mg Documented By: PATRICIA Non-Formulary Medication (Trospium) 20 mg PO BID [facility] Non-Formulary Medication (Vibegron [Gemtesa]) 75 mg PO DAILY [facility] Omeprazole (Omeprazole 20 Mg Capsule.Dr) 20 mg PO BEDTIME [facility] Sodium Chloride (0.9 % Sodium Chloride Flush 3 Ml Syringe) 3 ml IVFLUSH QSHIFT [facility] Last Admin: 12/06/24 09:30 Dose: Not Given Documented By: MARI Non-Admin Reason: in ed Tamsulosin HCl (Tamsulosin Hcl 0.4 Mg Capsule) 0.8 mg PO BEDTIME [facility] Valacyclovir HCl (Valacyclovir Hcl 500 Mg Tablet) 500 mg PO DAILY [facility] Last Admin: 12/06/24 08:37 Dose: 500 mg Documented By: PATRICIA Venlafaxine HCl (Venlafaxine Hcl Er 37.5 Mg Cap.Er.24h) 37.5 mg PO DAILY [facility] Last Admin: 12/06/24 08:37 Dose: 37.5 mg Documented By: PATRICIA Labs 12/06/24 09:59 12/06/24 09:59 Labs: Laboratory Results - last 24 hr 12/05/24 12/05/24 12/05/24 18:03 19:52 20:40 MCV 97.5 MCH 34.3 H MCHC 35.2 RDW 11.8 Plt Count 178 MPV 10.9 Immature Gran % (Auto) 0.2 Neut % (Auto) 67.1 Lymph % (Auto) 23.0 [place] % (Auto) 8.3 Eos % (Auto) 0.8 Baso % (Auto) 0.6 Lymph # (Auto) 1.5 [place] # (Auto) 0.5 Eos # (Auto) 0.1 Baso # (Auto) 0.0 Abs Immat Gran (auto) 0.01 Absolute Neuts (auto) 4.3 Absolute Nucleated RBC 0.000 Nucleated RBC % (auto) 0.0 PT 12.5 H INR 1.1 D-Dimer High Sensitivty 204 O2 Saturation 97.0 ABG pH at Pt Temp 7.46 H ABG pCO2 at Pt Temp 31 L ABG pO2 at Pt Temp 90 ABG HCO3 22 ABG Base Excess (Actual) 0.1 VBG pH VBG pCO2 VBG pO2 VBG HCO3 VBG O2 Saturation VBG Base Excess Carboxyhemoglobin % Anion Gap 15 Estim Creat Clear Calc 65.4 Estimated GFR > 60 Random Glucose 91 Lactic Acid Calcium 9.7 Phosphorus 2.7 Magnesium 2.1 Total Bilirubin 1.2 H AST 30 ALT 19 Alkaline Phosphatase 57 Total Protein 7.1 Albumin 4.3 Vitamin B12 TSH Urine Color Yellow Urine Appearance Clear Urine pH 7.0 Ur Specific [place] 1.025 Urine Protein 30 (1+) H Urine Glucose (UA) Negative Urine Ketones Trace Urine Blood Negative Urine Nitrite Negative Ur Leukocyte Esterase Negative Urine RBC 0-2 Urine WBC 0-5 Ur Squamous Epith Cells 0-2 Urine Bacteria None Seen Hyaline Casts 0-2 Urine Opiates Screen Not Detected Ur Buprenorphine Scrn Not Detected Ur Oxycodone Screen Not Detected Urine Methadone Screen Not Detected Urine Fentanyl Screen Not Detected Ur Barbiturates Screen Not Detected Ur Phencyclidine Scrn Not Detected Ur Amphetamines Screen Not Detected U Benzodiazepines Scrn Not Detected Urine Cocaine Screen Not Detected U Marijuana (THC) Screen POSITIVE H Ethyl Alcohol < 10 Influenza Type A (PCR) Influenza Type B (PCR) RSV RNA Qual (PCR) SARS-CoV-2 RNA (RT-PCR) 12/05/24 12/06/24 12/06/24 21:53 00:49 01:46 MCV MCH MCHC RDW Plt Count MPV Immature Gran % (Auto) Neut % (Auto) Lymph % (Auto) [place] % (Auto) Eos % (Auto) Baso % (Auto) Lymph # (Auto) [place] # (Auto) Eos # (Auto) Baso # (Auto) Abs Immat Gran (auto) Absolute Neuts (auto) Absolute Nucleated RBC Nucleated RBC % (auto) PT INR D-Dimer High Sensitivty O2 Saturation 99.0 ABG pH at Pt Temp 7.43 ABG pCO2 at Pt Temp 35 ABG pO2 at Pt Temp 97 ABG HCO3 24 ABG Base Excess (Actual) 0.5 VBG pH 7.41 VBG pCO2 37 VBG pO2 68 VBG HCO3 24 VBG O2 Saturation 91.0 VBG Base Excess -0.1 Carboxyhemoglobin % 2.6 Anion Gap Estim Creat Clear Calc Estimated GFR Random Glucose Lactic Acid Calcium Phosphorus Magnesium Total Bilirubin AST ALT Alkaline Phosphatase Total Protein Albumin Vitamin B12 TSH Urine Color Urine Appearance Urine pH Ur Specific [place] Urine Protein Urine Glucose (UA) Urine Ketones Urine Blood Urine Nitrite Ur Leukocyte Esterase Urine RBC Urine WBC Ur Squamous Epith Cells Urine Bacteria Hyaline Casts Urine Opiates Screen Ur Buprenorphine Scrn Ur Oxycodone Screen Urine Methadone Screen Urine Fentanyl Screen Ur Barbiturates Screen Ur Phencyclidine Scrn Ur Amphetamines Screen U Benzodiazepines Scrn Urine Cocaine Screen U Marijuana (THC) Screen Ethyl Alcohol Influenza Type A (PCR) Influenza Type B (PCR) RSV RNA Qual (PCR) SARS-CoV-2 RNA (RT-PCR) 12/06/24 12/06/24 12/06/24 01:47 02:15 09:59 MCV 96.6 96.9 MCH 35.2 H 34.9 H MCHC 36.5 H 36.0 RDW 11.9 11.9 Plt Count 176 172 MPV 10.5 10.5 Immature Gran % (Auto) 0.3 0.3 Neut % (Auto) 62.3 68.1 Lymph % (Auto) 26.7 23.1 [place] % (Auto) 8.1 6.5 Eos % (Auto) 2.1 1.5 Baso % (Auto) 0.5 0.5 Lymph # (Auto) 1.7 1.8 Stewart # (Auto) 0.5 0.5 Eos # (Auto) 0.1 0.1 Baso # (Auto) 0.0 0.0 Abs Immat Gran (auto) 0.02 0.02 Absolute Neuts (auto) 3.9 5.4 Absolute Nucleated RBC 0.000 0.000 Nucleated RBC % (auto) 0.0 0.0 PT INR D-Dimer High Sensitivty O2 Saturation ABG pH at Pt Temp ABG pCO2 at Pt Temp ABG pO2 at Pt Temp ABG HCO3 ABG Base Excess (Actual) VBG pH 7.38 VBG pCO2 39 VBG pO2 96 VBG HCO3 24 VBG O2 Saturation 99.0 VBG Base Excess -0.6 Carboxyhemoglobin % Anion Gap 14 15 Estim Creat Clear Calc 60.2 61.3 Estimated GFR > 60 > 60 Random Glucose 80 75 Lactic Acid 1.2 Calcium 9.6 10.0 Phosphorus Magnesium 2.3 2.1 Total Bilirubin 1.4 H AST 37 ALT 24 Alkaline Phosphatase 60 Total Protein 7.2 Albumin 4.5 Vitamin B12 876 TSH 1.44 Urine Color Urine Appearance Urine pH Ur Specific [place] Urine Protein Urine Glucose (UA) Urine Ketones Urine Blood Urine Nitrite Ur Leukocyte Esterase Urine RBC Urine WBC Ur Squamous Epith Cells Urine Bacteria Hyaline Casts Urine Opiates Screen Ur Buprenorphine Scrn Ur Oxycodone Screen Urine Methadone Screen Urine Fentanyl Screen Ur Barbiturates Screen Ur Phencyclidine Scrn Ur Amphetamines Screen U Benzodiazepines Scrn Urine Cocaine Screen U Marijuana (THC) Screen Ethyl Alcohol Influenza Type A (PCR) NEGATIVE Influenza Type B (PCR) NEGATIVE RSV RNA Qual (PCR) NEGATIVE SARS-CoV-2 RNA (RT-PCR) NEGATIVE Assessment and Plan (1) Manic behavior: Status: Acute Plan 74M PMH mood disorder, htn, bph, presented on section 12 with evelyn/paranoia, found to be hypoxic and hyeprtensive Acute hypoxic respiratory failure Unclear etiology, wean O2 as tolerated CTA negative for PE or opacity in lung russell ? Chronic hypoxia from COPD Hypertensive urgency Resolved, losartan care team when cleared psyhc disorder with evelyn lorazepam effexor on descovy for prep bph flomax, finasteride dvt prophylaxis - lovenox full code reason for continued hospitalization:hypoxia Quality Stroke Does the patient have a stroke diagnosis?: No VTE Prior VTE?: No VTE Risk Level:: Medical - moderate - high VTE Device Contraindication: Treatment Not Indicated VTE Drug Contraindication: N/A - Med Ordered
--- NOTE | 2024-12-06 14:59 | PM.PSYCN ---
History of Present Illness Date of Service: 12/06/24 Chief Complaint: hypoxic respiratory failure Reason for Consult: Evelyn and psychosis Requesting physician: Fili Hampton Sources of Information: patient interviewed and chart reviewed HPI Medical Evaluation Reviewed: Yes Personal & Social History: Patient found in his bed with a sitter. He is alert and oriented x 4. Tangential, circumstantial, disorganized. Speech is talkative, loud, and pressure. Reports history of anxiety for which he takes lorazepam as prescribed. Reports history of SI once in 2019 after he self adjusted and lower his lorazepam. He denies history of SA/SIB. He drinks 1 glass avoid 3-5 days weekly and consumes one cannabis edible nightly. He denies other recreational drugs. UTox was positive for cannabis. He reports moderate anxiety at this time. He denies depression. He denies SI/HI/AH/VH. He notes that he is and lives alone. His prescriber is Rosaline Smith NP, from [facility]; phone number . Patient seen at 15:00 on 12/06/2024. FORMERLY [facility] Medical History Sleep trouble Diagnostics Vital Signs (24Hr): Vital Signs - 24 hr 12/05/24 17:47 12/05/24 19:38 12/05/24 20:48 Temperature 98.3 F 98.9 F Pulse Rate 70 71 Respiratory Rate 16 15 Blood Pressure 171/107 H 202/108 H 141/108 H Pulse Oximetry 76 L 96 Oxygen Delivery Method Room Air Oxymask Oxygen Flow Rate 2 Fraction of Inspired Oxygen 12/05/24 21:05 12/06/24 00:04 12/06/24 00:57 Temperature 98.7 F Pulse Rate 78 68 63 Respiratory Rate 17 14 16 Blood Pressure 144/111 H 147/108 H 175/99 H Pulse Oximetry 95 94 94 Oxygen Delivery Method Room Air Oxymask High Flow Nasal Cannula Oxygen Flow Rate 6 50 Fraction of Inspired Oxygen 60 12/06/24 01:44 12/06/24 02:14 12/06/24 03:40 Temperature Pulse Rate 47 L 63 Respiratory Rate 20 13 16 Blood Pressure 153/91 H 138/78 Pulse Oximetry 96 94 Oxygen Delivery Method CPAP High Flow Nasal Cannula Oxygen Flow Rate Fraction of Inspired Oxygen 12/06/24 04:47 12/06/24 05:42 12/06/24 07:58 Temperature 98.1 F Pulse Rate 58 60 Respiratory Rate 16 13 14 Blood Pressure 142/78 H 104/81 Pulse Oximetry 95 98 Oxygen Delivery Method High Flow Nasal Cannula High Flow Nasal Cannula Oxygen Flow Rate Fraction of Inspired Oxygen 12/06/24 09:33 12/06/24 11:05 Temperature 98.4 F 97.0 F Pulse Rate 76 66 Respiratory Rate 20 18 Blood Pressure 129/81 137/86 Pulse Oximetry 98 95 Oxygen Delivery Method Oxymask Oxymask Oxygen Flow Rate 3 Fraction of Inspired Oxygen BMI result Body Mass Index 18.4 Labs 12/06/24 09:59 12/06/24 09:59 Labs: Laboratory Results - last 48 hr 12/05/24 12/05/24 12/05/24 18:03 19:52 20:40 WBC 6.4 RBC 4.34 L Hgb 14.9 Hct 42.3 MCV 97.5 MCH 34.3 H MCHC 35.2 RDW 11.8 Plt Count 178 MPV 10.9 Immature Gran % (Auto) 0.2 Neut % (Auto) 67.1 Lymph % (Auto) 23.0 [place] % (Auto) 8.3 Eos % (Auto) 0.8 Baso % (Auto) 0.6 Lymph # (Auto) 1.5 [place] # (Auto) 0.5 Eos # (Auto) 0.1 Baso # (Auto) 0.0 Abs Immat Gran (auto) 0.01 Absolute Neuts (auto) 4.3 Absolute Nucleated RBC 0.000 Nucleated RBC % (auto) 0.0 PT 12.5 H INR 1.1 D-Dimer High Sensitivty 204 O2 Saturation 97.0 ABG pH at Pt Temp 7.46 H ABG pCO2 at Pt Temp 31 L ABG pO2 at Pt Temp 90 ABG HCO3 22 ABG Base Excess (Actual) 0.1 VBG pH VBG pCO2 VBG pO2 VBG HCO3 VBG O2 Saturation VBG Base Excess Carboxyhemoglobin % Sodium 139 Potassium 3.8 Chloride 107 Carbon Dioxide 21 L Anion Gap 15 BUN 19 H Creatinine 0.81 Estim Creat Clear Calc 65.4 Estimated GFR > 60 Random Glucose 91 Lactic Acid Calcium 9.7 Phosphorus 2.7 Magnesium 2.1 Total Bilirubin 1.2 H AST 30 ALT 19 Alkaline Phosphatase 57 Troponin I High Sens 17.5 Total Protein 7.1 Albumin 4.3 Vitamin B12 TSH Urine Color Yellow Urine Appearance Clear Urine pH 7.0 Ur Specific Lancing 1.025 Urine Protein 30 (1+) H Urine Glucose (UA) Negative Urine Ketones Trace Urine Blood Negative Urine Nitrite Negative Ur Leukocyte Esterase Negative Urine RBC 0-2 Urine WBC 0-5 Ur Squamous Epith Cells 0-2 Urine Bacteria None Seen Hyaline Casts 0-2 Urine Opiates Screen Not Detected Ur Buprenorphine Scrn Not Detected Ur Oxycodone Screen Not Detected Urine Methadone Screen Not Detected Urine Fentanyl Screen Not Detected Ur Barbiturates Screen Not Detected Ur Phencyclidine Scrn Not Detected Ur Amphetamines Screen Not Detected U Benzodiazepines Scrn Not Detected Urine Cocaine Screen Not Detected U Marijuana (THC) Screen POSITIVE H Ethyl Alcohol < 10 Influenza Type A (PCR) Influenza Type B (PCR) RSV RNA Qual (PCR) SARS-CoV-2 RNA (RT-PCR) 12/05/24 12/06/24 12/06/24 21:53 00:49 01:46 WBC RBC Hgb Hct MCV MCH MCHC RDW Plt Count MPV Immature Gran % (Auto) Neut % (Auto) Lymph % (Auto) [place] % (Auto) Eos % (Auto) Baso % (Auto) Lymph # (Auto) [place] # (Auto) Eos # (Auto) Baso # (Auto) Abs Immat Gran (auto) Absolute Neuts (auto) Absolute Nucleated RBC Nucleated RBC % (auto) PT INR D-Dimer High Sensitivty O2 Saturation 99.0 ABG pH at Pt Temp 7.43 ABG pCO2 at Pt Temp 35 ABG pO2 at Pt Temp 97 ABG HCO3 24 ABG Base Excess (Actual) 0.5 VBG pH 7.41 VBG pCO2 37 VBG pO2 68 VBG HCO3 24 VBG O2 Saturation 91.0 VBG Base Excess -0.1 Carboxyhemoglobin % 2.6 Sodium Potassium Chloride Carbon Dioxide Anion Gap BUN Creatinine Estim Creat Clear Calc Estimated GFR Random Glucose Lactic Acid Calcium Phosphorus Magnesium Total Bilirubin AST ALT Alkaline Phosphatase Troponin I High Sens Total Protein Albumin Vitamin B12 TSH Urine Color Urine Appearance Urine pH Ur Specific Lancing Urine Protein Urine Glucose (UA) Urine Ketones Urine Blood Urine Nitrite Ur Leukocyte Esterase Urine RBC Urine WBC Ur Squamous Epith Cells Urine Bacteria Hyaline Casts Urine Opiates Screen Ur Buprenorphine Scrn Ur Oxycodone Screen Urine Methadone Screen Urine Fentanyl Screen Ur Barbiturates Screen Ur Phencyclidine Scrn Ur Amphetamines Screen U Benzodiazepines Scrn Urine Cocaine Screen U Marijuana (THC) Screen Ethyl Alcohol Influenza Type A (PCR) Influenza Type B (PCR) RSV RNA Qual (PCR) SARS-CoV-2 RNA (RT-PCR) 12/06/24 12/06/24 12/06/24 01:47 02:15 09:59 WBC 6.3 8.0 RBC 4.37 L 4.59 L Hgb 15.4 16.0 Hct 42.2 44.5 MCV 96.6 96.9 MCH 35.2 H 34.9 H MCHC 36.5 H 36.0 RDW 11.9 11.9 Plt Count 176 172 MPV 10.5 10.5 Immature Gran % (Auto) 0.3 0.3 Neut % (Auto) 62.3 68.1 Lymph % (Auto) 26.7 23.1 [place] % (Auto) 8.1 6.5 Eos % (Auto) 2.1 1.5 Baso % (Auto) 0.5 0.5 Lymph # (Auto) 1.7 1.8 [place] # (Auto) 0.5 0.5 Eos # (Auto) 0.1 0.1 Baso # (Auto) 0.0 0.0 Abs Immat Gran (auto) 0.02 0.02 Absolute Neuts (auto) 3.9 5.4 Absolute Nucleated RBC 0.000 0.000 Nucleated RBC % (auto) 0.0 0.0 PT INR D-Dimer High Sensitivty O2 Saturation ABG pH at Pt Temp ABG pCO2 at Pt Temp ABG pO2 at Pt Temp ABG HCO3 ABG Base Excess (Actual) VBG pH 7.38 VBG pCO2 39 VBG pO2 96 VBG HCO3 24 VBG O2 Saturation 99.0 VBG Base Excess -0.6 Carboxyhemoglobin % Sodium 141 142 Potassium 3.4 3.7 Chloride 108 104 Carbon Dioxide 22 27 Anion Gap 14 15 BUN 19 H 19 H Creatinine 0.88 0.87 Estim Creat Clear Calc 60.2 61.3 Estimated GFR > 60 > 60 Random Glucose 80 75 Lactic Acid 1.2 Calcium 9.6 10.0 Phosphorus Magnesium 2.3 2.1 Total Bilirubin 1.4 H AST 37 ALT 24 Alkaline Phosphatase 60 Troponin I High Sens 29.2 D Total Protein 7.2 Albumin 4.5 Vitamin B12 876 TSH 1.44 Urine Color Urine Appearance Urine pH Ur Specific Lancing Urine Protein Urine Glucose (UA) Urine Ketones Urine Blood Urine Nitrite Ur Leukocyte Esterase Urine RBC Urine WBC Ur Squamous Epith Cells Urine Bacteria Hyaline Casts Urine Opiates Screen Ur Buprenorphine Scrn Ur Oxycodone Screen Urine Methadone Screen Urine Fentanyl Screen Ur Barbiturates Screen Ur Phencyclidine Scrn Ur Amphetamines Screen U Benzodiazepines Scrn Urine Cocaine Screen U Marijuana (THC) Screen Ethyl Alcohol Influenza Type A (PCR) NEGATIVE Influenza Type B (PCR) NEGATIVE RSV RNA Qual (PCR) NEGATIVE SARS-CoV-2 RNA (RT-PCR) NEGATIVE Imaging Radiology Impressions: ITS Impressions Chest X-Ray 12/06/24 07:10 IMPRESSION: Low lung volumes. Small hiatal hernia. No acute cardiopulmonary abnormality. Electronically signed by: Demetris Mckeon MD 12/06/2024 07:23 AM EDT RP Mental Status Exam Mental Status Exam Narrative: Appearance: Casually dressed, hair is unkempt Behavior: Hyperverbal and distracted. Eye contact is appropriate, and possible signs of psychomotor agitation or retardation Speech: Talkative, loud, pressure Thought process: Tangential, circumstantial, disorganized, ? paranoia Thought content: Future oriented no self-harming thoughts Mood: manic Affect: Intense SI:denies HI:denies VH/AH:none Delusions: None Insight/judgment: Impaired insight and judgment Memory/cog: Alert, oriented x 4. grossly intact to conversational testing Medications Medications Current Medications Acetaminophen (Acetaminophen 325 Mg Tablet) 975 mg PO Q6H PRN PRN Reason: Pain, Mild 1-3,fever,headache Emtricitabine/Tenofovir Alafenamide (Emtricitabine/Tenofov Alafenam Tablet) 1 tab PO DAILY [facility] Enoxaparin Sodium (Enoxaparin Sodium 40 Mg/0.4 Ml Syringe) 40 mg SUBCUT Q24H [facility] Last Admin: 12/06/24 11:15 Dose: 40 mg Finasteride (Finasteride 5 Mg Tablet) 5 mg PO DAILY [facility] Last Admin: 12/06/24 08:37 Dose: 5 mg Hydroxyzine HCl (Hydroxyzine Hcl 25 Mg Tablet) 25 mg PO BEDTIME [facility] Lorazepam (Lorazepam 0.5 Mg Tablet) 0.5 mg PO DAILY PRN PRN Reason: Anxiety Last Admin: 12/06/24 08:35 Dose: 0.5 mg Losartan Potassium (Losartan Potassium 50 Mg Tablet) 100 mg PO DAILY [facility]; Protocol Last Admin: 12/06/24 08:34 Dose: 100 mg Non-Formulary Medication (Trospium) 20 mg PO BID [facility] Non-Formulary Medication (Vibegron [Gemtesa]) 75 mg PO DAILY [facility] Omeprazole (Omeprazole 20 Mg Capsule.Dr) 20 mg PO BEDTIME [facility] Sodium Chloride (0.9 % Sodium Chloride Flush 3 Ml Syringe) 3 ml IVFLUSH QSHIFT [facility] Last Admin: 12/06/24 09:30 Dose: Not Given Tamsulosin HCl (Tamsulosin Hcl 0.4 Mg Capsule) 0.8 mg PO BEDTIME [facility] Valacyclovir HCl (Valacyclovir Hcl 500 Mg Tablet) 500 mg PO DAILY [facility] Last Admin: 12/06/24 08:37 Dose: 500 mg Venlafaxine HCl (Venlafaxine Hcl Er 37.5 Mg Cap.Er.24h) 37.5 mg PO DAILY [facility] Last Admin: 12/06/24 08:37 Dose: 37.5 mg Allergies Allergies Allergy/AdvReac Type Severity Reaction Status Date / Time No Known Allergies Allergy Verified 12/05/24 18:02 Assessment & Plan Assessment & Plan (1) Evelyn: Status: Acute Code(s): F30.9 - Manic episode, unspecified Assessment and Plan: Pt seen for evelyn and psychosis. Patient found in his bed with a sitter at bedside. He is alert and oriented x 4. Tangential, circumstantial, disorganized. Speech is talkative, loud, and pressure. Reports history of anxiety for which he takes lorazepam as prescribed. Reports history of SI once in 2019 after he self adjusted and lower his lorazepam. He denies history of SA/SIB. He drinks 1 glass avoid 3-5 days weekly and consumes one cannabis edible nightly. He denies other recreational drugs. UTox was positive for cannabis. He reports moderate anxiety at this time. He denies depression. He denies SI/HI/AH/VH. He notes that he is and lives alone. His prescriber is Rosaline Smith NP, from [facility]; phone number . Venlafaxine 37.5 daily discontinue this time. Hydroxyzine 25 mg 3 times daily as needed ordered for anxiety. Ativan increased to 0.5 mg twice daily for severe anxiety. Haldol 5 mg twice daily as needed ordered for agitation. Trileptal 300 mg twice daily ordered for mood stabilization. Total time managing care of this patient today ____ minutes. Patient educated on: therapeutic strategies
[2024-12-07] VITALS: BP 106/64; PULSE 89; RESP 18; TEMP 36.4; O2SAT 98
[2024-12-07 03:13] VITALS: BP 159/91; PULSE 62; RESP 18; TEMP 36.2; O2SAT 97
[2024-12-07 06:57] VITALS: BP 147/79; PULSE 52; RESP 17; TEMP 36.3; O2SAT 92
--- NOTE | 2024-12-07 07:32 | P.CDIM_ITS ---
PROVIDER RESPONSE TEXT: To clarify, the appropriate diagnosis supported by the clinical indicators: Underweight QUERY TEXT: PHYSICIAN'S DOCUMENTATION REQUEST Date of Query: 12/07/2024 05:36 AM EDT Patient Name: Ulisses Kitchen Admit Date: 12/06/2024 Dear Fili Hampton MD, A review of the medical record indicates additional documentation may be needed. Please review below and update the documentation accordingly. Clinical Indicators: Height: 5ft 9in Weight: 56.5kg BMI: 18.4 Other Clinical Notes Supporting Significance of the BMI: Clinical nutrition notes patient is Underweight with BMI 18.4 Recommends Magic Cup. If possible, please provide an associated diagnosis related to the abnormal BMI, such as: Underweight Weight loss Cachexia Anorexia Other (explain) Clinically unable to determine (explain) Thank you, Carla Goldman, CCS, CDIS Use of terms such as suspected, likely, concern for, or probable (associated with a specific diagnosis that is being evaluated, monitored, or treated as if it exists) are acceptable and can be coded in the inpatient setting, when documented at the time of discharge. Please use your independent medical judgment in providing your response. THIS QUERY IS PART OF THE PERMANENT MEDICAL RECORD
[2024-12-07 07:44] LABS: Hematocrit 42.2 % (42.0-52.0); Hemoglobin 14.9 g/dl (14.0-18.0); Mean Corpuscular HGB Conc 35.3 g/dl (31.0-36.0); Mean Corpuscular Hemoglobin 34.3 pg (27.0-33.0); Mean Corpuscular Volume 97.0 fL (80.0-98.0); NRBC Abs Auto 0.000 X10*3/uL (0.0-0.012); NRBC Pct Auto 0.0 /100WBC (0.0-0.2); Platelet Count 171 X10*3/uL (160-400); Red Blood Count 4.35 X10*6/uL (4.60-5.80); White Blood Count 5.5 X10*3/uL (4.8-10.8)
[2024-12-07 07:57] LABS: Alanine Aminotransferase 20 U/L (0-40); Albumin Level 4.1 g/dL (3.5-5.0); Alkaline Phosphatase 56 U/L (39-117); Anion Gap 15 (12-20); Aspartate Amino Transferase 33 U/L (5-37); Blood Urea Nitrogen 24 mg/dL (9-16); Calcium 9.5 mg/dL (8.4-10.2); Carbon Dioxide 25 mmol/L (22-29); Chloride 103 mmol/L (96-108); Creatinine Clr Calc Pharmacy 58.6; Estimated Glomerular Filt Rate > 60; Magnesium 2.0 mg/dL (1.6-2.6); Potassium 3.5 mmol/L (3.3-5.1); Sodium 139 mmol/L (135-145); Total Protein 6.6 g/dL (6.5-8.0)
[2024-12-07] MEDS: Emtricitabine/Tenofov Alafenam TABLET 1 TAB PO (08:38)
[2024-12-07] MEDS: 0.9 % Sodium Chloride Flush 3 ML SYRINGE IVFLUSH ×2 (08:40→22:34)
--- NOTE | 2024-12-07 11:01 | P.PNIM_ITS ---
Subjective Subjective Date of Service: 12/07/24 Interval History: no complaints Physical Exam 2 Exam: Exam: General: AO X 3, no acute distress, confabulation, fixation on lorazepam, unable to provide good history Resp: CTA bilateral, no accessory muscles used CVS: S1,S2,RRR GI: soft, non tender, non distended Neuro: motor grossly intact, alert Psych: impaired insight Vital Signs: Vital Signs: Last Vital Signs Temp 97.3 F 12/07/24 06:57 Pulse 52 12/07/24 06:57 Resp 17 12/07/24 06:57 BP 147/79 H 12/07/24 06:57 Pulse Ox 92 12/07/24 06:57 O2 Del Method Oxymask 12/07/24 06:57 O2 Flow Rate 3 12/07/24 06:57 FiO2 60 12/06/24 00:57 BMI result Body Mass Index 18.4 Objective Data Active Medications Acetaminophen (Acetaminophen 325 Mg Tablet) 975 mg PO Q6H PRN PRN Reason: Pain, Mild 1-3,fever,headache Emtricitabine/Tenofovir Alafenamide (Emtricitabine/Tenofov Alafenam Tablet) 1 tab PO DAILY [facility] Last Admin: 12/07/24 08:38 Dose: 1 tab Documented By: KAUR Enoxaparin Sodium (Enoxaparin Sodium 40 Mg/0.4 Ml Syringe) 40 mg SUBCUT Q24H [facility] Last Admin: 12/07/24 08:38 Dose: 40 mg Documented By: KAUR Finasteride (Finasteride 5 Mg Tablet) 5 mg PO DAILY [facility] Last Admin: 12/07/24 08:39 Dose: 5 mg Documented By: KAUR Haloperidol (Haloperidol 5 Mg Tablet) 5 mg PO BID PRN PRN Reason: Agitation Hydroxyzine HCl (Hydroxyzine Hcl 25 Mg Tablet) 25 mg PO BEDTIME [facility] Last Admin: 12/06/24 19:56 Dose: 25 mg Documented By: MAHAMED Hydroxyzine HCl (Hydroxyzine Hcl 25 Mg Tablet) 25 mg PO Q6H PRN PRN Reason: Anxiety Lorazepam (Lorazepam 0.5 Mg Tablet) 0.5 mg PO BID PRN PRN Reason: Severe anxiety Last Admin: 12/07/24 06:16 Dose: 0.5 mg Documented By: MAHAMED Losartan Potassium (Losartan Potassium 50 Mg Tablet) 100 mg PO DAILY [facility]; Protocol Last Admin: 12/07/24 08:38 Dose: 100 mg Documented By: KAUR Non-Formulary Medication (Trospium) 20 mg PO BID [facility] Non-Formulary Medication (Vibegron [Gemtesa]) 75 mg PO DAILY [facility] Omeprazole (Omeprazole 20 Mg Capsule.) 20 mg PO BEDTIME [facility] Last Admin: 12/06/24 19:56 Dose: 20 mg Documented By: MAHAMED Oxcarbazepine (Oxcarbazepine 300 Mg Tablet) 300 mg PO BID [facility] Last Admin: 12/07/24 08:38 Dose: 300 mg Documented By: KAUR Sodium Chloride (0.9 % Sodium Chloride Flush 3 Ml Syringe) 3 ml IVFLUSH QSHIFT [facility] Last Admin: 12/07/24 08:40 Dose: 3 ml Documented By: KAUR Tamsulosin HCl (Tamsulosin Hcl 0.4 Mg Capsule) 0.8 mg PO BEDTIME [facility] Last Admin: 12/06/24 19:55 Dose: 0.8 mg Documented By: MAHAMED Valacyclovir HCl (Valacyclovir Hcl 500 Mg Tablet) 500 mg PO DAILY [facility] Last Admin: 12/07/24 08:38 Dose: 500 mg Documented By: KAUR Labs 12/07/24 06:35 12/07/24 06:35 Labs: Laboratory Results - last 24 hr 12/07/24 06:35 MCV 97.0 MCH 34.3 H MCHC 35.3 RDW 11.6 Plt Count 171 MPV 11.3 Absolute Nucleated RBC 0.000 Nucleated RBC % (auto) 0.0 Anion Gap 15 Estim Creat Clear Calc 58.6 Estimated GFR > 60 Random Glucose 84 Calcium 9.5 Magnesium 2.0 Total Bilirubin 1.6 H Direct Bilirubin 0.5 AST 33 ALT 20 Alkaline Phosphatase 56 Total Protein 6.6 Albumin 4.1 Assessment and Plan (1) Manic behavior: Status: Acute Plan 74M PMH mood disorder, htn, bph, presented on section 12 with evelyn/paranoia, found to be hypoxic and hyeprtensive Acute hypoxic respiratory failure Unclear etiology, wean O2 as tolerated CTA negative for PE or opacity in lung russell ? Chronic hypoxia from COPD pulm eval Hypertensive urgency Resolved, losartan care team when cleared psyhc disorder with evelyn psych appreciated started trileptal, atarax, ativan, haldol on descovy for prep bph flomax, finasteride dvt prophylaxis - lovenox full code reason for continued hospitalization:hypoxia Quality Stroke Does the patient have a stroke diagnosis?: No VTE Prior VTE?: No VTE Risk Level:: Medical - moderate - high VTE Device Contraindication: Treatment Not Indicated VTE Drug Contraindication: N/A - Med Ordered
[2024-12-07 11:06] VITALS: BP 134/77; PULSE 67; RESP 17; TEMP 36.2; O2SAT 92
--- NOTE | 2024-12-07 12:00 | MHC.CM.PN ---
IMM 12/07/24, Pt. lives alone, he does not have home health services or use DME. His PCP is Rosaline Smith in [place]. It was difficult to obtain additional assessment info due to his tangential answers, he seems confused still. CM to follow for DC needs.
[2024-12-07 15:59] VITALS: BP 133/89; PULSE 83; RESP 18; TEMP 36.7; O2SAT 91
[2024-12-07 20:00] VITALS: BP 152/88; PULSE 80; RESP 18; TEMP 36.8; O2SAT 91
[2024-12-08] VITALS (8 sets, daily range): BP systolic 120–160; BP diastolic 66–85; PULSE 56–63; RESP 16–20; TEMP 36.3–36.8; O2SAT 86–95
[2024-12-08 06:39] LABS: Hematocrit 41.5 % (42.0-52.0); Hemoglobin 14.8 g/dl (14.0-18.0); Mean Corpuscular HGB Conc 35.7 g/dl (31.0-36.0); Mean Corpuscular Hemoglobin 34.7 pg (27.0-33.0); Mean Corpuscular Volume 97.2 fL (80.0-98.0); NRBC Abs Auto 0.000 X10*3/uL (0.0-0.012); NRBC Pct Auto 0.0 /100WBC (0.0-0.2); Platelet Count 170 X10*3/uL (160-400); Red Blood Count 4.27 X10*6/uL (4.60-5.80); White Blood Count 5.7 X10*3/uL (4.8-10.8)
[2024-12-08 06:51] LABS: Anion Gap 13 (12-20); Blood Urea Nitrogen 25 mg/dL (9-16); Calcium 9.9 mg/dL (8.4-10.2); Carbon Dioxide 24 mmol/L (22-29); Chloride 106 mmol/L (96-108); Creatinine Clr Calc Pharmacy 47.6; Estimated Glomerular Filt Rate > 60; Magnesium 2.1 mg/dL (1.6-2.6); Potassium 3.9 mmol/L (3.3-5.1); Sodium 139 mmol/L (135-145)
[2024-12-08] MEDS: Emtricitabine/Tenofov Alafenam TABLET 1 TAB PO (09:59)
[2024-12-08] MEDS: 0.9 % Sodium Chloride Flush 3 ML SYRINGE IVFLUSH ×2 (09:59→20:32)
[2024-12-08 11:00] LABS: ABG HCO3 26 mmol/L (22-26); ABG O2 % Saturation 92.0 %
--- NOTE | 2024-12-08 11:12 | HO.PM.IMPN ---
Subjective Subjective Date of Service: 12/08/24 Interval History: no complaints Physical Exam Exam: Exam: General: AO X 3, no acute distres Resp: CTA bilateral, no accessory muscles used CVS: S1,S2,RRR GI: soft, non tender, non distended Neuro: motor grossly intact, alert Vital Signs: Vital Signs: Last Vital Signs Temp 97.3 F 12/08/24 07:33 Pulse 56 12/08/24 07:33 Resp 16 12/08/24 07:33 BP 160/85 H 12/08/24 07:33 Pulse Ox 95 12/08/24 07:33 O2 Del Method Oxymask 12/08/24 07:33 O2 Flow Rate 2 12/08/24 07:33 FiO2 60 12/06/24 00:57 BMI result Body Mass Index 18.4 Objective Data Active Medications Acetaminophen (Acetaminophen 325 Mg Tablet) 975 mg PO Q6H PRN PRN Reason: Pain, Mild 1-3,fever,headache Emtricitabine/Tenofovir Alafenamide (Emtricitabine/Tenofov Alafenam Tablet) 1 tab PO DAILY [facility] Last Admin: 12/08/24 09:59 Dose: 1 tab Documented By: MING Enoxaparin Sodium (Enoxaparin Sodium 40 Mg/0.4 Ml Syringe) 40 mg SUBCUT Q24H [facility] Last Admin: 12/08/24 09:59 Dose: 40 mg Documented By: MING Finasteride (Finasteride 5 Mg Tablet) 5 mg PO DAILY [facility] Last Admin: 12/08/24 09:59 Dose: 5 mg Documented By: MING Haloperidol (Haloperidol 5 Mg Tablet) 5 mg PO BID PRN PRN Reason: Agitation Hydroxyzine HCl (Hydroxyzine Hcl 25 Mg Tablet) 25 mg PO BEDTIME [facility] Last Admin: 12/07/24 22:23 Dose: 25 mg Documented By: SAURABH Hydroxyzine HCl (Hydroxyzine Hcl 25 Mg Tablet) 25 mg PO Q6H PRN PRN Reason: Anxiety Last Admin: 12/08/24 10:01 Dose: 25 mg Documented By: MING Lorazepam (Lorazepam 0.5 Mg Tablet) 0.5 mg PO BID PRN PRN Reason: Severe anxiety Last Admin: 12/07/24 23:24 Dose: 0.5 mg Documented By: SAURABH Losartan Potassium (Losartan Potassium 50 Mg Tablet) 100 mg PO DAILY [facility]; Protocol Last Admin: 12/08/24 09:58 Dose: 100 mg Documented By: MING Non-Formulary Medication (Trospium) 20 mg PO BID [facility] Non-Formulary Medication (Vibegron [Gemtesa]) 75 mg PO DAILY [facility] Omeprazole (Omeprazole 20 Mg Capsule.Dr) 20 mg PO BEDTIME [facility] Last Admin: 12/07/24 22:22 Dose: 20 mg Documented By: SAURABH Oxcarbazepine (Oxcarbazepine 300 Mg Tablet) 300 mg PO BID [facility] Last Admin: 12/08/24 09:58 Dose: 300 mg Documented By: MING Sodium Chloride (0.9 % Sodium Chloride Flush 3 Ml Syringe) [facility] Last Admin: 12/08/24 09:59 Dose: 3 ml Documented By: MING Tamsulosin HCl (Tamsulosin Hcl 0.4 Mg Capsule) 0.8 mg PO BEDTIME [facility] Last Admin: 12/07/24 22:23 Dose: 0.8 mg Documented By: SAURABH Valacyclovir HCl (Valacyclovir Hcl 500 Mg Tablet) 500 mg PO DAILY [facility] Last Admin: 12/08/24 09:58 Dose: 500 mg Documented By: MING Labs 12/08/24 06:20 12/08/24 06:20 Labs: Laboratory Results - last 24 hr 12/06/24 12/08/24 12/08/24 09:59 06:20 10:56 MCV 97.2 MCH 34.7 H MCHC 35.7 RDW 11.7 Plt Count 170 MPV 11.0 Absolute Nucleated RBC 0.000 Nucleated RBC % (auto) 0.0 O2 Saturation 92.0 ABG pH at Pt Temp 7.46 H ABG pCO2 at Pt Temp 37 ABG pO2 at Pt Temp 71 L ABG HCO3 26 ABG Base Excess (Actual) 2.9 Anion Gap 13 Estim Creat Clear Calc 47.6 Estimated GFR > 60 Random Glucose 108 Calcium 9.9 Magnesium 2.1 Ref Lab Test Result SEE NOTE Assessment and Plan (1) Manic behavior: Status: Acute Plan 74M PMH mood disorder, htn, bph, presented on section 12 with evelyn/paranoia, found to be hypoxic and hyeprtensive Acute hypoxic respiratory failure Unclear etiology, wean O2 as tolerated, denies smoking CTA negative for PE or opacity in lung russell pulm eval Hypertensive urgency Resolved, losartan psyhc disorder with evelyn psych appreciated started trileptal, atarax, ativan, haldol on descovy for prep bph flomax, finasteride dvt prophylaxis - lovenox full code reason for continued hospitalization:hypoxia Quality Stroke Does the patient have a stroke diagnosis?: No VTE Prior VTE?: No VTE Risk Level:: Medical - moderate - high VTE Device Contraindication: Treatment Not Indicated VTE Drug Contraindication: N/A - Med Ordered
--- NOTE | 2024-12-08 11:36 | P.CONPL_ITS ---
History of Present Illness History of Present Illness Consult date: 12/08/24 Chief complaint: hypoxic respiratory failure Narrative: 74-year-old gentleman hospitalized for paranoia and agitation, but also noted to be hypoxemic utilizing digital oximeter and started on supplemental oxygen. His CT angio chest showed essentially normal lungs and no pulmonary emboli, but large hiatal hernia. Patient denies any pulmonary related concerns or complaints. His arterial blood gas shows saturation of 92 on room air. Review of Systems 2 Constitutional: Constitutional: Denies daytime sleepiness, Denies excessive sweating, Denies fatigue, Denies fever(s), Denies lethargy, Denies malaise, Denies night sweats, Denies snoring and Denies weight loss Eyes: Eyes: Denies blurry vision and Denies itchy eyes ENT: Denies nasal congestion, Denies post nasal drip, Denies sinus pain, Denies sinus pressure and Denies other ( Thrush) Cardiovascular: Cardiovascular: Denies chest pain, Denies pedal edema, Denies dyspnea, Denies orthopnea and Denies paroxysmal nocturnal dyspnea Respiratory: Respiratory: Denies cough, Denies hemoptysis, Denies excessive phlegm production, Denies dyspnea, Denies snoring and Denies wheezing Gastrointestinal: Gastrointestinal: Denies abdominal pain and Denies heartburn Musculoskeletal: Musculoskeletal: Denies myalgias, Denies arthralgias and Denies joint swelling Integumentary/Breasts: Skin/Breast: Denies rash Neurologic: Denies memory loss and Denies seizure-like activity Psychiatric: Psychiatric: Denies abnormal sleep pattern, Denies anxiety and Denies memory loss Endocrine: Endocrine: Denies excessive sweating, Denies fatigue and Denies heat intolerance Hematologic/Lymphatic: Hematologic/Lymphatic: Denies easy bruising Allergic/Immunologic: Allergic/Immunologic: Denies itchy eyes, Denies seasonal rhinorrhea and Denies wheezing PMFSH Past Medical History Medical History Sleep trouble Social History Social History Household Members: None Housing: Other Do you presently have visiting nurse or other home services: No Alcohol intake: never 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 Patient Tobacco Use Status: Never used Tobacco service: No Meds Allergies Allergy/AdvReac Type Severity Reaction Status Date / Time No Known Allergies Allergy Verified 12/05/24 18:02 Active Medications: Current Medications Acetaminophen (Acetaminophen 325 Mg Tablet) 975 mg PO Q6H PRN PRN Reason: Pain, Mild 1-3,fever,headache Emtricitabine/Tenofovir Alafenamide (Emtricitabine/Tenofov Alafenam Tablet) 1 tab PO DAILY [facility] Last Admin: 12/08/24 09:59 Dose: 1 tab Enoxaparin Sodium (Enoxaparin Sodium 40 Mg/0.4 Ml Syringe) 40 mg SUBCUT Q24H [facility] Last Admin: 12/08/24 09:59 Dose: 40 mg Finasteride (Finasteride 5 Mg Tablet) 5 mg PO DAILY [facility] Last Admin: 12/08/24 09:59 Dose: 5 mg Haloperidol (Haloperidol 5 Mg Tablet) 5 mg PO BID PRN PRN Reason: Agitation Hydroxyzine HCl (Hydroxyzine Hcl 25 Mg Tablet) 25 mg PO BEDTIME [facility] Last Admin: 12/07/24 22:23 Dose: 25 mg Hydroxyzine HCl (Hydroxyzine Hcl 25 Mg Tablet) 25 mg PO Q6H PRN PRN Reason: Anxiety Last Admin: 12/08/24 10:01 Dose: 25 mg Lorazepam (Lorazepam 0.5 Mg Tablet) 0.5 mg PO BID PRN PRN Reason: Severe anxiety Last Admin: 12/07/24 23:24 Dose: 0.5 mg Losartan Potassium (Losartan Potassium 50 Mg Tablet) 100 mg PO DAILY [facility]; Protocol Last Admin: 12/08/24 09:58 Dose: 100 mg Non-Formulary Medication (Trospium) 20 mg PO BID [facility] Non-Formulary Medication (Vibegron [Gemtesa]) 75 mg PO DAILY [facility] Omeprazole (Omeprazole 20 Mg Capsule.Dr) 20 mg PO BEDTIME [facility] Last Admin: 12/07/24 22:22 Dose: 20 mg Oxcarbazepine (Oxcarbazepine 300 Mg Tablet) 300 mg PO BID [facility] Last Admin: 12/08/24 09:58 Dose: 300 mg Sodium Chloride (0.9 % Sodium Chloride Flush 3 Ml Syringe) 3 ml IVFLUSH QSHIFT [facility] Last Admin: 12/08/24 09:59 Dose: 3 ml Tamsulosin HCl (Tamsulosin Hcl 0.4 Mg Capsule) 0.8 mg PO BEDTIME [facility] Last Admin: 12/07/24 22:23 Dose: 0.8 mg Valacyclovir HCl (Valacyclovir Hcl 500 Mg Tablet) 500 mg PO DAILY [facility] Last Admin: 12/08/24 09:58 Dose: 500 mg Home Medications ?Medication ?Instructions ?Recorded ?Confirmed ?Last Taken ?Type emtricitabine 200 mg-tenofovir 1 tab PO DAILY 12/05/24 12/05/24 Unknown History alafenamide fumarate 25 mg tablet (Descovy) finasteride 5 mg tablet 5 mg PO DAILY 12/05/2412/05 Unknown History hydroxyzine pamoate 25 mg capsule 25 mg PO BEDTIME 04/1912/05/24 Unknown History lorazepam 0.5 mg tablet 0.5 mg PO DAILY PRN anxiety 12/05/24 12/05/24 Unknown History losartan 100 mg tablet 100 mg PO DAILY 12/05/2404/19 Unknown History omeprazole 20 mg capsule,delayed 20 mg PO BEDTIME 11/2412/05/24 Unknown History release tamsulosin 0.4 mg capsule 0.8 mg PO BEDTIME 12/05/24 0 12/05/24 Unknown History trospium 20 mg tablet 20 mg PO BID 12/05/24 Unknown History valacyclovir 500 mg tablet 500 mg PO DAILY 12/05/24 Unknown History venlafaxine 37.5 mg 37.5 mg PO DAILY 12/05/24 Unknown History capsule,extended release 24 hr vibegron 75 mg tablet (Gemtesa) 75 mg PO DAILY 5 12/05/24 Unknown History Physical Exam 2 Vital Signs: Vital Signs: Last Vital Signs Temp 97.5 F 12/08/24 11:13 Pulse 62 12/08/24 11:13 Resp 18 12/08/24 11:13 BP 120/66 12/08/24 11:13 Pulse Ox 86 L 12/08/24 11:13 O2 Del Method Oxymask 12/08/24 11:13 O2 Flow Rate 3 12/08/24 11:13 FiO2 60 12/06/24 00:57 BMI result Body Mass Index 18.4 Const: General: no acute distress and alert Nutritional Appearance: not obese Orientation/consciousness: Other orientation findings ( oriented) HEENT: Head: Yes atraumatic Eyes: General: appearance normal, both eyes and all related structures S clerae: sclerae normal EOM: EOMs intact bilaterally Neck: Neck: Yes supple Lymphatic: no lymphadenopathy noted Resp: Effort & Inspection: normal respiratory effort and no use of accessory muscles Auscultation: clear to auscultation bilaterally Cardio: Rate: regular rate Rhythm: regular rhythm Heart sounds: no gallops, no murmurs and no rubs Skin: General skin exam: other ( warm) Extrem: General: No clubbing, No cyanosis and No edema Results Laboratory Findings 12/08/24 06:20 12/08/24 06:20 ABG, PT/INR, D-dimer: PT/INR, D-dimer PT 12.5 SEC (10.9-12.4) H 12/05/24 18:03 INR 1.1 (0.9-1.1) 12/05/24 18:03 Abnormal lab findings: Abnormal Labs 12/05/24 12/05/24 12/05/24 18:03 19:52 20:40 RBC 4.34 L Hct MCH 34.3 H MCHC PT 12.5 H ABG pH at Pt Temp 7.46 H ABG pCO2 at Pt Temp 31 L ABG pO2 at Pt Temp Carbon Dioxide 21 L BUN 19 H Total Bilirubin 1.2 H Urine Protein 30 (1+) H U Marijuana (THC) Screen POSITIVE H 12/06/24 12/06/24 12/07/24 02:15 09:59 06:35 RBC 4.37 L 4.59 L 4.35 L Hct MCH 35.2 H 34.9 H 34.3 H MCHC 36.5 H PT ABG pH at Pt Temp ABG pCO2 at Pt Temp ABG pO2 at Pt Temp Carbon Dioxide BUN 19 H 19 H 24 H Total Bilirubin 1.4 H 1.6 H Urine Protein U Marijuana (THC) Screen 12/08/24 12/08/24 06:20 10:56 RBC 4.27 L Hct 41.5 L MCH 34.7 H MCHC PT ABG pH at Pt Temp 7.46 H ABG pCO2 at Pt Temp ABG pO2 at Pt Temp 71 L Carbon Dioxide BUN 25 H Total Bilirubin Urine Protein U Marijuana (THC) Screen Assessment and Plan (1) Hypoxia: Status: Acute Plan Impression: 74-year-old gentleman with hypoxia by pulse oximetry, but normal O2 saturation and arterial blood gas, and normal chest imaging with no evidence of consolidation of emboli. Likely secondary to poor pulse oximetry pickup of patient's true oxygenation. Recommendation: At this time does not appear to require any further pulmonary treatment. Procedures Date of Service Date of Service: 12/08/24
--- NOTE | 2024-12-08 12:21 | MHC.CLN ---
F/U PT IS UNDER WT FOR HT NO S/S MALNUTRITION AT THIS TIME PO INTAKE VARIABLE RANGING FROM 25-100% REGULAR DIET PT REPORTS APPETITE IS GOOD. PT DID NOT WANT TO KNOW HIS BODY WT R/T [employer] FOOD PREFERENCES RECORDED AND SENT TO [facility] WITH MEALS SUPP PROVIDES 870KCALS, 27G PROTEIN WITH 100% ACCEPTANCE MONITOR PO INTAKE AND ENCOURAGE SUPPLEMENTS
--- NOTE | 2024-12-08 15:09 | MHC.CM.PN ---
Pt. is not ready to DC, to be seen by psych to determine DCP.
[2024-12-09 03:06] VITALS: BP 131/76; PULSE 57; RESP 18; TEMP 37; O2SAT 93
[2024-12-09 07:37] VITALS: BP 137/86; PULSE 58; RESP 18; TEMP 36.7; O2SAT 93
[2024-12-09] MEDS: Emtricitabine/Tenofov Alafenam TABLET 1 TAB PO (09:25)
[2024-12-09] MEDS: 0.9 % Sodium Chloride Flush 3 ML SYRINGE IVFLUSH ×3 (09:26→20:33)
--- NOTE | 2024-12-09 09:30 | HO.PM.IMPN ---
Subjective Subjective Date of Service: 12/09/24 Interval History: no complaints Physical Exam Vital Signs: Vital Signs: Last Vital Signs Temp 98.0 F 12/09/24 07:37 Pulse 58 12/09/24 07:37 Resp 18 12/09/24 07:37 BP 137/86 12/09/24 07:37 Pulse Ox 93 12/09/24 07:37 O2 Del Method Nasal Cannula 12/09/24 07:37 O2 Flow Rate 2 12/09/24 07:37 FiO2 60 12/06/24 00:57 BMI result Body Mass Index 18.4 Const: General: no acute distress and alert Nutritional Appearance: not obese Orientation/consciousness: Other orientation findings ( oriented) HEENT: Head: Yes atraumatic Eyes: General: appearance normal, both eyes and all related structures Sclerae: sclerae normal EOM: EOMs intact bilaterally Neck: Neck: Yes supple Lymphatic: no lymphadenopathy noted Resp: Effort & Inspection: normal respiratory effort and no use of accessory muscles Auscultation: clear to auscultation bilaterally Cardio: Rate: regular rate Rhythm: regular rhythm Heart sounds: no gallops, no murmurs and no rubs Skin: General skin exam: other ( warm) Extrem: General: No clubbing, No cyanosis and No edema Objective Data Active Medications Acetaminophen (Acetaminophen 325 Mg Tablet) 975 mg PO Q6H PRN PRN Reason: Pain, Mild 1-3,fever,headache Emtricitabine/Tenofovir Alafenamide (Emtricitabine/Tenofov Alafenam Tablet) 1 tab PO DAILY [facility] Last Admin: 12/09/24 09:25 Dose: 1 tab Documented By: MING Enoxaparin Sodium (Enoxaparin Sodium 40 Mg/0.4 Ml Syringe) 40 mg SUBCUT Q24H [facility] Last Admin: 12/09/24 09:25 Dose: 40 mg Documented By: MING Finasteride (Finasteride 5 Mg Tablet) 5 mg PO DAILY [facility] Last Admin: 12/09/24 09:25 Dose: 5 mg Documented By: MING Haloperidol (Haloperidol 5 Mg Tablet) 5 mg PO BID PRN PRN Reason: Agitation Hydroxyzine HCl (Hydroxyzine Hcl 25 Mg Tablet) 25 mg PO BEDTIME [facility] Last Admin: 12/08/24 20:31 Dose: 25 mg Documented By: ALEX Hydroxyzine HCl (Hydroxyzine Hcl 25 Mg Tablet) 25 mg PO Q6H PRN PRN Reason: Anxiety Last Admin: 12/08/24 10:01 Dose: 25 mg Documented By: MING Lorazepam (Lorazepam 0.5 Mg Tablet) 0.5 mg PO BID PRN PRN Reason: Severe anxiety Last Admin: 12/09/24 09:25 Dose: 0.5 mg Documented By: MING Losartan Potassium (Losartan Potassium 50 Mg Tablet) 100 mg PO DAILY [facility]; Protocol Last Admin: 12/09/24 09:25 Dose: 100 mg Documented By: MING Omeprazole (Omeprazole 20 Mg Capsule.Dr) 20 mg PO BEDTIME [facility] Last Admin: 12/08/24 20:31 Dose: 20 mg Documented By: ALEX Oxcarbazepine (Oxcarbazepine 300 Mg Tablet) 300 mg PO BID [facility] Last Admin: 12/09/24 09:25 Dose: 300 mg Documented By: MING Sodium Chloride (0.9 % Sodium Chloride Flush 3 Ml Syringe) 3 ml IVFLUSH QSHIFT [facility] Last Admin: 12/09/24 09:26 Dose: 3 ml Documented By: MING Tamsulosin HCl (Tamsulosin Hcl 0.4 Mg Capsule) 0.8 mg PO BEDTIME [facility] Last Admin: 12/08/24 20:31 Dose: 0.8 mg Documented By: ALEX Tolterodine Tartrate (Tolterodine Tartrate La 4 Mg Cap.Er.24h) 4 mg PO DAILY [facility] Last Admin: 12/09/24 09:25 Dose: 4 mg Documented By: MING Valacyclovir HCl (Valacyclovir Hcl 500 Mg Tablet) 500 mg PO DAILY [facility] Last Admin: 12/09/24 09:25 Dose: 500 mg Documented By: MING Labs 12/08/24 06:20 12/08/24 06:20 Labs: Laboratory Results - last 24 hr 12/08/24 10:56 O2 Saturation 92.0 ABG pH at Pt Temp 7.46 H ABG pCO2 at Pt Temp 37 ABG pO2 at Pt Temp 71 L ABG HCO3 26 ABG Base Excess (Actual) 2.9 Assessment and Plan (1) Manic behavior: Status: Acute Plan 74M PMH mood disorder, htn, bph, presented on section 12 with evelyn/paranoia, found to be hypoxic and hyeprtensive Acute hypoxic respiratory failure Unclear etiology, wean O2 as tolerated, denies smoking CTA negative for PE or opacity in lung russell pulm appreciated - finger probe underestimated saturation, more accurate on ear and ABG, keep on room air for now and monitor Hypertensive urgency Resolved, losartan psyhc disorder with evelyn psych appreciated started trileptal, atarax, ativan, haldol on descovy for prep bph flomax, finasteride dvt prophylaxis - lovenox full code reason for continued hospitalization:hypoxia Quality Stroke Does the patient have a stroke diagnosis?: No VTE Prior VTE?: No VTE Risk Level:: Medical - moderate - high VTE Device Contraindication: Treatment Not Indicated VTE Drug Contraindication: N/A - Med Ordered
[2024-12-09 11:29] VITALS: O2SAT 91
[2024-12-09 11:54] VITALS: BP 142/68; PULSE 70; RESP 19; TEMP 36.7; O2SAT 93
[2024-12-09 15:17] VITALS: BP 164/83; PULSE 56; RESP 18; TEMP 37.1; O2SAT 93
[2024-12-09 19:36] VITALS: BP 194/108; PULSE 68; RESP 18; TEMP 37.3; O2SAT 95
[2024-12-10] VITALS: BP 147/92; PULSE 67; RESP 18; TEMP 37.2; O2SAT 92
[2024-12-10 03:24] VITALS: BP 149/93; PULSE 52; RESP 16; TEMP 36.8; O2SAT 93
[2024-12-10 07:49] LABS: Hematocrit 38.9 % (42.0-52.0); Hemoglobin 13.9 g/dl (14.0-18.0); Mean Corpuscular HGB Conc 35.7 g/dl (31.0-36.0); Mean Corpuscular Hemoglobin 34.7 pg (27.0-33.0); Mean Corpuscular Volume 97.0 fL (80.0-98.0); NRBC Abs Auto 0.000 X10*3/uL (0.0-0.012); NRBC Pct Auto 0.0 /100WBC (0.0-0.2); Platelet Count 178 X10*3/uL (160-400); Red Blood Count 4.01 X10*6/uL (4.60-5.80); White Blood Count 5.2 X10*3/uL (4.8-10.8)
[2024-12-10 08:00] VITALS: BP 135/81; PULSE 55; RESP 20; TEMP 36.4; O2SAT 96
[2024-12-10 08:07] LABS: Alanine Aminotransferase 15 U/L (0-40); Albumin Level 3.7 g/dL (3.5-5.0); Alkaline Phosphatase 54 U/L (39-117); Anion Gap 11 (12-20); Aspartate Amino Transferase 18 U/L (5-37); Blood Urea Nitrogen 19 mg/dL (9-16); Calcium 10.3 mg/dL (8.4-10.2); Carbon Dioxide 28 mmol/L (22-29); Chloride 103 mmol/L (96-108); Creatinine Clr Calc Pharmacy 53.3; Estimated Glomerular Filt Rate > 60; Magnesium 1.8 mg/dL (1.6-2.6); Potassium 3.8 mmol/L (3.3-5.1); Sodium 138 mmol/L (135-145); Total Protein 6.0 g/dL (6.5-8.0)
[2024-12-10] MEDS: Emtricitabine/Tenofov Alafenam TABLET 1 TAB PO (09:53)
[2024-12-10] MEDS: 0.9 % Sodium Chloride Flush 3 ML SYRINGE IVFLUSH ×2 (09:54→21:08)
[2024-12-10 12:00] VITALS: BP 147/93; PULSE 65; RESP 20; TEMP 37.1; O2SAT 91
--- NOTE | 2024-12-10 12:12 | P.PNIM_ITS ---
Subjective Subjective Date of Service: 12/10/24 Interval History: no complaints Physical Exam 2 Vital Signs: Vital Signs: Last Vital Signs Temp 97.5 F 12/10/24 08:00 Pulse 55 12/10/24 08:00 Resp 20 12/10/24 08:00 BP 135/81 12/10/24 08:00 Pulse Ox 96 12/10/24 08:00 O2 Del Method Room Air 12/10/24 08:00 O2 Flow Rate 4 12/10/24 03:24 FiO2 60 12/06/24 00:57 BMI result Body Mass Index 18.4 Const: General: no acute distress and alert Nutritional Appearance: not obese Orientation/consciousness: Other orientation findings ( oriented) HEENT: Head: Yes atraumatic Eyes: General: appearance normal, both eyes and all related structures S clerae: sclerae normal EOM: EOMs intact bilaterally Neck: Neck: Yes supple Lymphatic: no lymphadenopathy noted Resp: Effort & Inspection: normal respiratory effort and no use of accessory muscles Auscultation: clear to auscultation bilaterally Cardio: Rate: regular rate Rhythm: regular rhythm Heart sounds: no gallops, no murmurs and no rubs Skin: General skin exam: other ( warm) Extrem: General: No clubbing, No cyanosis and No edema Objective Data Active Medications Acetaminophen (Acetaminophen 325 Mg Tablet) 975 mg PO Q6H PRN PRN Reason: Pain, Mild 1-3,fever,headache Emtricitabine/Tenofovir Alafenamide (Emtricitabine/Tenofov Alafenam Tablet) 1 tab PO DAILY [facility] Last Admin: 12/10/24 09:53 Dose: 1 tab Documented By: MING Enoxaparin Sodium (Enoxaparin Sodium 40 Mg/0.4 Ml Syringe) 40 mg SUBCUT Q24H [facility] Last Admin: 12/10/24 09:54 Dose: 40 mg Documented By: MING Finasteride (Finasteride 5 Mg Tablet) 5 mg PO DAILY [facility] Last Admin: 12/10/24 09:53 Dose: 5 mg Documented By: MING Haloperidol (Haloperidol 5 Mg Tablet) 5 mg PO BID PRN PRN Reason: Agitation Last Admin: 12/09/24 20:33 Dose: 5 mg Documented By: OSVALDO Hydroxyzine HCl (Hydroxyzine Hcl 25 Mg Tablet) 25 mg PO BEDTIME [facility] Last Admin: 12/09/24 20:33 Dose: 25 mg Documented By: OSVALDO Hydroxyzine HCl (Hydroxyzine Hcl 25 Mg Tablet) 25 mg PO Q6H PRN PRN Reason: Anxiety Last Admin: 12/09/24 13:47 Dose: 25 mg Documented By: MING Lorazepam (Lorazepam 0.5 Mg Tablet) 0.5 mg PO BID PRN PRN Reason: Severe anxiety Last Admin: 12/10/24 09:53 Dose: 0.5 mg Documented By: MING Losartan Potassium (Losartan Potassium 50 Mg Tablet) 100 mg PO DAILY [facility]; Protocol Last Admin: 12/10/24 09:53 Dose: 100 mg Documented By: MING Omeprazole (Omeprazole 20 Mg Capsule.Dr) 20 mg PO BEDTIME [facility] Last Admin: 12/09/24 20:33 Dose: 20 mg Documented By: OSVALDO Oxcarbazepine (Oxcarbazepine 300 Mg Tablet) 300 mg PO BID [facility] Last Admin: 12/10/24 09:53 Dose: 300 mg Documented By: MING Sodium Chloride (0.9 % Sodium Chloride Flush 3 Ml [facility]ringe) [facility] Last Admin: 12/10/24 09:54 Dose: 3 ml Documented By: MING Tamsulosin HCl (Tamsulosin Hcl 0.4 Mg Capsule) 0.8 mg PO BEDTIME [facility] Last Admin: 12/09/24 20:33 Dose: 0.8 mg Documented By: OSVALDO Tolterodine Tartrate (Tolterodine Tartrate La 4 Mg Cap.Er.24h) 4 mg PO DAILY [facility] Last Admin: 12/10/24 09:53 Dose: 4 mg Documented By: MING Valacyclovir HCl (Valacyclovir Hcl 500 Mg Tablet) 500 mg PO DAILY [facility] Last Admin: 12/10/24 09:53 Dose: 500 mg Documented By: MING Labs 12/10/24 06:51 12/10/24 06:51 Labs: Laboratory Results - last 24 hr 12/10/24 06:51 MCV 97.0 MCH 34.7 H MCHC 35.7 RDW 11.6 Plt Count 178 MPV 11.2 Absolute Nucleated RBC 0.000 Nucleated RBC % (auto) 0.0 Anion Gap 11 L Estim Creat Clear Calc 53.3 Estimated GFR > 60 Random Glucose 81 Calcium 10.3 H Magnesium 1.8 Total Bilirubin 0.7 Direct Bilirubin 0.3 AST 18 ALT 15 Alkaline Phosphatase 54 Total Protein 6.0 L Albumin 3.7 Assessment and Plan (1) Manic behavior: Status: Acute Plan 74M PMH mood disorder, htn, bph, presented on section 12 with evelyn/paranoia, found to be hypoxic and hyeprtensive Acute hypoxic respiratory failure Unclear etiology, wean O2 as tolerated, denies smoking CTA negative for PE or opacity in lung russell pulm appreciated - finger probe underestimated saturation, more accurate on ear and ABG, keep on room air for now and monitor May have some nocturnal hypoxia can follow up outpatient for this Debility PT eval Hypertensive urgency Resolved, losartan psyhc disorder with evelyn psych appreciated started trileptal, atarax, ativan, haldol on descovy for prep bph flomax, finasteride dvt prophylaxis - lovenox full code reason for continued hospitalization:dispo planning Quality Stroke Does the patient have a stroke diagnosis?: No VTE Prior VTE?: No VTE Risk Level:: Medical - moderate - high VTE Device Contraindication: Treatment Not Indicated VTE Drug Contraindication: N/A - Med Ordered
[2024-12-10 15:21] VITALS: BP 128/71; PULSE 70; RESP 20; TEMP 36.6; O2SAT 92
[2024-12-10 20:00] VITALS: BP 157/89; PULSE 70; RESP 16; TEMP 37.1; O2SAT 92
[2024-12-11] VITALS (7 sets, daily range): BP systolic 121–180; BP diastolic 54–103; PULSE 53–75; RESP 1–20; TEMP 36.4–37.1; O2SAT 90–96
[2024-12-11] MEDS: Emtricitabine/Tenofov Alafenam TABLET 1 TAB PO (09:35)
[2024-12-11] MEDS: 0.9 % Sodium Chloride Flush 3 ML SYRINGE IVFLUSH ×2 (09:36→18:27)
--- NOTE | 2024-12-11 10:37 | HO.PM.IMPN ---
Subjective Subjective Date of Service: 12/11/24 Interval History: perseverating on lorazepam taper Physical Exam Vital Signs: Vital Signs: Last Vital Signs Temp 98.4 F 12/11/24 08:00 Pulse 68 12/11/24 08:00 Resp 18 12/11/24 08:00 BP 165/86 H 12/11/24 08:00 Pulse Ox 92 12/11/24 08:00 O2 Del Method Room Air 12/11/24 08:00 O2 Flow Rate 4 12/10/24 12:00 FiO2 60 12/06/24 00:57 BMI result Body Mass Index 18.4 Const: General: no acute distress and alert Nutritional Appearance: not obese Orientation/consciousness: Other orientation findings ( oriented) HEENT: Head: Yes atraumatic Eyes: General: appearance normal, both eyes and all related structures Sclerae: sclerae normal EOM: EOMs intact bilaterally Neck: Neck: Yes supple Lymphatic: no lymphadenopathy noted Resp: Effort & Inspection: normal respiratory effort and no use of accessory muscles Auscultation: clear to auscultation bilaterally Cardio: Rate: regular rate Rhythm: regular rhythm Heart sounds: no gallops, no murmurs and no rubs Skin: General skin exam: other ( warm) Extrem: General: No clubbing, No cyanosis and No edema Objective Data Active Medications Acetaminophen (Acetaminophen 325 Mg Tablet) 975 mg PO Q6H PRN PRN Reason: Pain, Mild 1-3,fever,headache Emtricitabine/Tenofovir Alafenamide (Emtricitabine/Tenofov Alafenam Tablet) 1 tab PO DAILY [facility] Last Admin: 12/11/24 09:35 Dose: 1 tab Documented By: KAUSHIK Enoxaparin Sodium (Enoxaparin Sodium 40 Mg/0.4 Ml Syringe) 40 mg SUBCUT Q24H [facility] Last Admin: 12/11/24 09:36 Dose: 40 mg Documented By: KAUSHIK Finasteride (Finasteride 5 Mg Tablet) 5 mg PO DAILY [facility] Last Admin: 12/11/24 09:34 Dose: 5 mg Documented By: KAUSHIK Haloperidol (Haloperidol 5 Mg Tablet) 5 mg PO BID PRN PRN Reason: Agitation Last Admin: 12/09/24 20:33 Dose: 5 mg Documented By: OSVALDO Hydroxyzine HCl (Hydroxyzine Hcl 25 Mg Tablet) 25 mg PO BEDTIME [facility] Last Admin: 12/10/24 21:02 Dose: 25 mg Documented By: ERENDIRA Hydroxyzine HCl (Hydroxyzine Hcl 25 Mg Tablet) 25 mg PO Q6H PRN PRN Reason: Anxiety Last Admin: 12/09/24 13:47 Dose: 25 mg Documented By: MING Lorazepam (Lorazepam 0.5 Mg Tablet) 0.25 mg PO BID PRN PRN Reason: Severe anxiety Losartan Potassium (Losartan Potassium 50 Mg Tablet) 100 mg PO DAILY [facility]; Protocol Last Admin: 12/11/24 09:35 Dose: 100 mg Documented By: KAUSHIK Omeprazole (Omeprazole 20 Mg Capsule.Dr) 20 mg PO BEDTIME [facility] Last Admin: 12/10/24 21:02 Dose: 20 mg Documented By: ERENDIRA Oxcarbazepine (Oxcarbazepine 300 Mg Tablet) 300 mg PO BID [facility] Last Admin: 12/11/24 09:35 Dose: 300 mg Documented By: KAUSHIK Sodium Chloride (0.9 % Sodium Chloride Flush 3 Ml Syringe) 3 ml IVFLUSH QSHIFT [facility] Last Admin: 12/11/24 09:36 Dose: 3 ml Documented By: KAUSHIK Tamsulosin HCl (Tamsulosin Hcl 0.4 Mg Capsule) 0.8 mg PO BEDTIME [facility] Last Admin: 12/10/24 21:02 Dose: 0.8 mg Documented By: ERENDIRA Tolterodine Tartrate (Tolterodine Tartrate La 4 Mg Cap.Er.24h) 4 mg PO DAILY [facility] Last Admin: 12/11/24 09:34 Dose: 4 mg Documented By: KAUSHIK Valacyclovir HCl (Valacyclovir Hcl 500 Mg Tablet) 500 mg PO DAILY [facility] Last Admin: 12/11/24 09:35 Dose: 500 mg Documented By: KAUSHIK Labs 12/10/24 06:51 12/10/24 06:51 Assessment and Plan (1) Manic behavior: Status: Acute Plan 74M PMH mood disorder, htn, bph, presented on section 12 with evelyn/paranoia, found to be hypoxic and hyeprtensive Acute hypoxic respiratory failure Unclear etiology, wean O2 as tolerated, denies smoking CTA negative for PE or opacity in lung russell pulm appreciated - finger probe underestimated saturation, more accurate on ear and ABG, keep on room air for now and monitor May have some nocturnal hypoxia can follow up outpatient for this appears resolved Hypertensive urgency Resolved, losartan psyhc disorder with evelyn psych appreciated started trileptal, atarax, ativan taper, haldol care team eval on descovy for prep bph flomax, finasteride dvt prophylaxis - lovenox full code reason for continued hospitalization:dispo planning Quality Stroke Does the patient have a stroke diagnosis?: No VTE Prior VTE?: No VTE Risk Level:: Medical - moderate - high VTE Device Contraindication: Treatment Not Indicated VTE Drug Contraindication: N/A - Med Ordered
--- NOTE | 2024-12-11 12:37 | MHC.CLN ---
F/U PO INTAKE VARIABLE RANGING FROM 25-100% REGULAR DIET RECEIVING MAGIC CUP TID WITH MEALS SUPP PROVIDES 870KCALS, 27G PROTEIN WITH 100% ACCEPTANCE MONITOR PO INTAKE AND ENCOURAGE SUPPLEMENTS
--- NOTE | 2024-12-11 14:16 | MHC.CARE ---
Psych consult being placed to determine disposition after being assessed by the CARE team on 12/11/2024
[2024-12-11 15:48] LABS: ABG Refer to POC result
--- NOTE | 2024-12-11 16:16 | MHC.CM.PN ---
PSYCH EVAL PENDING, DCP TBD PENDING RESULTS
--- NOTE | 2024-12-11 16:46 | PM.PSYCN ---
History of Present Illness Date of Service: Chief Complaint: hypoxic respiratory failure Reason for Consult: disorganized, not at baseline Requesting physician: Fili Hampton Discussed with referring provider: Yes Sources of Information: patient interviewed and chart reviewed HPI Narrative: Patient is a 74 year old male with hx of depression, htn, bph, presented on section 12 with evelyn/paranoia, found to be hypoxic and hypertensive and admitted to medical floor. Psychiatric consult placed for: disorganized, not at baseline. During psychiatric consult, pt presents alert and oriented x3. He reports feeling fine and hoping to discharge home soon. Patient denies hx of inpatient psychiatric hospitalizations. denies hx of SA/SIB. He reports using edible gummies of THC when at home. denies any other substance use. denies SI/HI/VH/AH. 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 Patient scored 30 on the Mini-Mental State Exam, which is the maximum score. He does not appear to have cognitive impairment at this time. Past Psychiatric History: Therapist: Krysten ([place], [place]) Denies hx of IPLOC. denies hx of SA/SIB. Medical Evaluation Reviewed: Yes [facility] Medical History Sleep trouble Family History: denies Social History: Lives alone. . no biological children. 1 step daughter (adult) Substance History: Utox positive for marijuana. Trauma History: denies Diagnostics Vital Signs (24Hr): Vital Signs - 24 hr 12/10/24 20:00 12/11/24 00:00 12/11/24 04:00 Temperature 98.8 F 98.1 F 98.7 F Pulse Rate 70 53 62 Respiratory Rate 16 1 L 17 Blood Pressure 157/89 H 154/54 H 121/66 Pulse Oximetry 92 94 90 L Oxygen Delivery Method Room Air Room Air Room Air 12/11/24 08:00 12/11/24 11:57 12/11/24 16:00 Temperature 98.4 F 97.9 F 98.3 F Pulse Rate 68 62 64 Respiratory Rate 18 20 20 Blood Pressure 165/86 H 158/92 H Pulse Oximetry 92 94 96 Oxygen Delivery Method Room Air Room Air Room Air BMI result Body Mass Index 18.4 Labs 12/10/24 06:51 12/10/24 06:51 Labs: Laboratory Results - last 48 hr 12/10/24 06:51 WBC 5.2 RBC 4.01 L Hgb 13.9 L Hct 38.9 L MCV 97.0 MCH 34.7 H MCHC 35.7 RDW 11.6 Plt Count 178 MPV 11.2 Absolute Nucleated RBC 0.000 Nucleated RBC % (auto) 0.0 Sodium 138 Potassium 3.8 Chloride 103 Carbon Dioxide 28 Anion Gap 11 L BUN 19 H Creatinine 1.00 Estim Creat Clear Calc 53.3 Estimated GFR > 60 Random Glucose 81 Calcium 10.3 H Magnesium 1.8 Total Bilirubin 0.7 Direct Bilirubin 0.3 AST 18 ALT 15 Alkaline Phosphatase 54 Total Protein 6.0 L Albumin 3.7 Imaging Radiology Impressions: ITS Impressions Chest X-Ray 12/06/24 07:10 IMPRESSION: Low lung volumes. Small hiatal hernia. No acute cardiopulmonary abnormality. Electronically signed by: Demetris Mckeon MD 12/06/2024 07:23 AM EDT RP Mental Status Exam Mental Status Exam Patient Appearance: Appropriate Patient Orientation: Person, Place, Time and Situation Level of Consciousness: Awake and Alert Patient Behavior: Appropriate, Cooperative and Good Eye Contact Mood Description: Anxious Affect Description: Anxious Ability to Follow Directions: Good Speech Pattern: Clear and Rambling Memory Description: Intact Hallucinations: None Delusions: Not Present Thought Process: Intact and Racing Thought Content: positive for Intact Medications Medications Current Medications Acetaminophen (Acetaminophen 325 Mg Tablet) 975 mg PO Q6H PRN PRN Reason: Pain, Mild 1-3,fever,headache Emtricitabine/Tenofovir Alafenamide (Emtricitabine/Tenofov Alafenam Tablet) 1 tab PO DAILY [facility] Last Admin: 12/11/24 09:35 Dose: 1 tab Enoxaparin Sodium (Enoxaparin Sodium 40 Mg/0.4 Ml Syringe) 40 mg SUBCUT Q24H OTILIA Last Admin: 12/11/24 09:36 Dose: 40 mg Finasteride (Finasteride 5 Mg Tablet) 5 mg PO DAILY [facility] Last Admin: 12/11/24 09:34 Dose: 5 mg Haloperidol (Haloperidol 5 Mg Tablet) 5 mg PO BID PRN PRN Reason: Agitation Last Admin: 12/09/24 20:33 Dose: 5 mg Hydroxyzine HCl (Hydroxyzine Hcl 25 Mg Tablet) 25 mg PO BEDTIME [facility] Last Admin: 12/10/24 21:02 Dose: 25 mg Hydroxyzine HCl (Hydroxyzine Hcl 25 Mg Tablet) 25 mg PO Q6H PRN PRN Reason: Anxiety Last Admin: 12/09/24 13:47 Dose: 25 mg Lorazepam (Lorazepam 0.5 Mg Tablet) 0.25 mg PO BID PRN PRN Reason: Severe anxiety Last Admin: 12/11/24 13:24 Dose: 0.25 mg Losartan Potassium (Losartan Potassium 50 Mg Tablet) 100 mg PO DAILY [facility]; Protocol Last Admin: 12/11/24 09:35 Dose: 100 mg Omeprazole (Omeprazole 20 Mg Capsule.Dr) 20 mg PO BEDTIME [facility] Last Admin: 12/10/24 21:02 Dose: 20 mg Oxcarbazepine (Oxcarbazepine 300 Mg Tablet) 300 mg PO BID [facility] Last Admin: 12/11/24 09:35 Dose: 300 mg Sodium Chloride (0.9 % Sodium Chloride Flush 3 Ml Syringe) 3 ml IVFLUSH QSHIFT [facility] Last Admin: 12/11/24 09:36 Dose: 3 ml Tamsulosin HCl (Tamsulosin Hcl 0.4 Mg Capsule) 0.8 mg PO BEDTIME [facility] Last Admin: 12/10/24 21:02 Dose: 0.8 mg Tolterodine Tartrate (Tolterodine Tartrate La 4 Mg Cap.Er.24h) 4 mg PO DAILY [facility] Last Admin: 12/11/24 09:34 Dose: 4 mg Valacyclovir HCl (Valacyclovir Hcl 500 Mg Tablet) 500 mg PO DAILY [facility] Last Admin: 12/11/24 09:35 Dose: 500 mg Allergies Allergies Allergy/AdvReac Type Severity Reaction Status Date / Time No Known Allergies Allergy Verified 12/05/24 18:02 Assessment & Plan Assessment & Plan (1) Altered mental status: Qualifiers: Altered mental status type: unspecified Qualified Code(s): R41.82 - Altered mental status, unspecified Status: Acute Code(s): R41.82 - Altered mental status, unspecified Plan -Patient scored 30 on the Mini-Mental State Exam, which is the maximum score. He does not appear to have cognitive impairment at this time. -Re-consult if needed. Total time managing care of this patient today _30___ minutes.
[2024-12-12] VITALS (7 sets, daily range): BP systolic 127–160; BP diastolic 73–91; PULSE 57–75; RESP 16–20; TEMP 36.5–36.7; O2SAT 78–93
[2024-12-12] MEDS: Emtricitabine/Tenofov Alafenam TABLET 1 TAB PO (08:48)
--- NOTE | 2024-12-12 08:57 | PC.NURSE ---
Addendum entered by Juan Pollock RN 12/12/24 18:35: report given to psychological operations. belongings with pt. iv removed. paperwork given to RN upon transfer. HCP informed. Original Note: pt refusing fall precautions
--- NOTE | 2024-12-12 12:21 | HO.PM.IMPN ---
Subjective Subjective Date of Service: 12/12/24 Interval History: no complaints Physical Exam Exam: Exam: General: AO X 3, no acute distress Resp: CTA bilateral, no accessory muscles used CVS: S1,S2,RRR GI: soft, non tender, non distended Neuro: motor grossly intact, alert Psych: strange affect, ? insight, appears intellegent and understands much of medical condition but perseverates and has poor retention of new information Vital Signs: Vital Signs: Last Vital Signs Temp 98.1 F 12/12/24 07:48 Pulse 57 12/12/24 07:48 Resp 20 12/12/24 07:48 BP 127/73 12/12/24 07:48 Pulse Ox 93 12/12/24 07:48 O2 Del Method Room Air 12/12/24 07:48 O2 Flow Rate 4 12/10/24 12:00 FiO2 60 12/06/24 00:57 BMI result Body Mass Index 18.4 Objective Data Active Medications Acetaminophen (Acetaminophen 325 Mg Tablet) 975 mg PO Q6H PRN PRN Reason: Pain, Mild 1-3,fever,headache Emtricitabine/Tenofovir Alafenamide (Emtricitabine/Tenofov Alafenam Tablet) 1 tab PO DAILY [facility] Last Admin: 12/12/24 08:48 Dose: 1 tab Documented By: GHASSAN Enoxaparin Sodium (Enoxaparin Sodium 40 Mg/0.4 Ml Syringe) 40 mg SUBCUT Q24H [facility] Last Admin: 12/12/24 08:48 Dose: 40 mg Documented By: GHASSAN Finasteride (Finasteride 5 Mg Tablet) 5 mg PO DAILY [facility] Last Admin: 12/12/24 08:47 Dose: 5 mg Documented By: GHASSAN Haloperidol (Haloperidol 5 Mg Tablet) 5 mg PO BID PRN PRN Reason: Agitation Last Admin: 12/09/24 20:33 Dose: 5 mg Documented By: OSVALDO Hydroxyzine HCl (Hydroxyzine Hcl 25 Mg Tablet) 25 mg PO BEDTIME [facility] Last Admin: 12/11/24 21:40 Dose: 25 mg Documented By: OSVALDO(2) Hydroxyzine HCl (Hydroxyzine Hcl 25 Mg Tablet) 25 mg PO Q6H PRN PRN Reason: Anxiety Last Admin: 12/09/24 13:47 Dose: 25 mg Documented By: MING Lorazepam (Lorazepam 0.5 Mg Tablet) 0.25 mg PO BID PRN PRN Reason: Severe anxiety Last Admin: 12/12/24 08:47 Dose: 0.25 mg Documented By: GHASSAN Losartan Potassium (Losartan Potassium 50 Mg Tablet) 100 mg PO DAILY [facility]; Protocol Last Admin: 12/12/24 08:47 Dose: 100 mg Documented By: GHASSAN Omeprazole (Omeprazole 20 Mg Capsule.Dr) 20 mg PO BEDTIME [facility] Last Admin: 12/11/24 21:35 Dose: 20 mg Documented By: OSVALDO(2) Oxcarbazepine (Oxcarbazepine 300 Mg Tablet) 300 mg PO BID [facility] Last Admin: 12/12/24 08:47 Dose: 300 mg Documented By: GHASSAN Sodium Chloride (0.9 % Sodium Chloride Flush 3 Ml Syringe) 3 ml IVFLUSH QSHIFT [facility] Last Admin: 12/12/24 07:57 Dose: Not Given Documented By: GHSASAN Non-Admin Reason: Previously Administered Tamsulosin HCl (Tamsulosin Hcl 0.4 Mg Capsule) 0.8 mg PO BEDTIME [facility] Last Admin: 12/11/24 21:35 Dose: 0.8 mg Documented By: OSVALDO(2) Tolterodine Tartrate (Tolterodine Tartrate La 4 Mg Cap.Er.24h) 4 mg PO DAILY [facility] Last Admin: 12/12/24 08:48 Dose: 4 mg Documented By: GHASSAN Valacyclovir HCl (Valacyclovir Hcl 500 Mg Tablet) 500 mg PO DAILY [facility] Last Admin: 12/12/24 08:48 Dose: 500 mg Documented By: GHASSAN Labs 12/10/24 06:51 12/10/24 06:51 Assessment and Plan (1) Manic behavior: Status: Acute Plan 74M PMH mood disorder, htn, bph, presented on section 12 with evelyn/paranoia, found to be hypoxic and hyeprtensive Acute hypoxic respiratory failure Unclear etiology, now on room air, denies smoking CTA negative for PE or opacity in lung russell pulm appreciated - finger probe underestimated saturation, more accurate on ear and ABG, keep on room air, if desats on probe would confirm with aBG May have some nocturnal hypoxia can follow up outpatient for this appears resolved Hypertensive urgency Resolved, losartan psyhc disorder with evelyn psych appreciated started trileptal, atarax, ativan taper, haldol care team recommended psych eval after discussion with brother, still does not appear to be at baseline, with obvious memory deficits and ?personality changes care/psych to reeval on descovy for prep bph flomax, finasteride dvt prophylaxis - lovenox full code reason for continued hospitalization:dispo planning Quality Stroke Does the patient have a stroke diagnosis?: No VTE Prior VTE?: No VTE Risk Level:: Medical - moderate - high VTE Device Contraindication: Treatment Not Indicated VTE Drug Contraindication: N/A - Med Ordered
--- NOTE | 2024-12-12 14:14 | P.DS_ITS ---
DS: Providers Provider Date of Service: 12/12/24 Date of admission: 12/05/24 22:01 Date of discharge: 12/12/24 Primary care physician: Rosaline Smith NP Consults: 12/05/24 19:43 ED CARE Team Crisis Consult Stat Comment: Reason for consultation: Lucila 12/05/24 20:58 Consult to Psychiatry Stat Consulting Provider: [facility] [place] Psych Covering Reason for consultation: manic/paranoid Has provider been notified: No 12/06/24 00:12 Consult to Psychiatry Routine Consulting Provider: [facility] [place] Psych Covering Reason for consultation: Psychosis 12/07/24 11:00 Consult to Pulmonology Routine Consulting Provider: [facility] [place] Pulmonology Services Reason for consultation: hypoxia, unclear etiology 12/11/24 10:36 Inpt CARE Team Crisis Consult Routine Comment: Reason for consultation: medically cleared, disorganized, perseverates, ?geripsych 12/11/24 14:13 Consult to Psychiatry Routine Consulting Provider: [facility] [place] Psych Covering Reason for consultation: disorganized, not at baseline DS: Diagnosis Discharge Diagnosis (1) Manic behavior: Status: Acute DS: Summary Hospital Course Hospital Course: from initial hpi: 74 years old man was brought to the emergency department on section 12 from home because he is having increased paranoia and agitation. He was found to be quite hypoxic, 76% on room air. HPI was when able to obtain directly from the patient due to altered mental status. He was not able to answer questions appropriately and uncooperative with the interview. According to prior ED note patient has a sleep disorder. hospital course: Patient was admitted for acute hypoxic respiratory failure of unclear etiology. At time of discharge on room air. Unclear if patient was ever truly hypoxic, workup was negative and ABG unremarkable could be false low reading due to peripheral vasoconstriction. Probe on ear did not read hypoxia. There may also be some nocturnal hypoxia which can be followed outpatient. For hypertensive urgency was resumed on losartan and resolved. For psychiatric disorder with lucila was seen by Psychiatry who started patient on Trileptal, Atarax, Ativan taper, Haldol. At time of discharge patient somewhat improved but still very disorganized with poor memory and fixations was seen by care team who recommended admission to [facility]. Patient is on Descovy for prep. For BPH was continued on Flomax and finasteride. Time Attestation Discharge Coordination Time (in mins): 34 Quality: Safe Use of Opioids Does Pt have an Active Cancer Diagnosis on the Problem List?: No Quality: Stroke Does the patient have a stroke diagnosis?: No Physical Exam Exam: Exam: General: AO X 3, no acute distress Resp: CTA bilateral, no accessory muscles used CVS: S1,S2,RRR GI: soft, non tender, non distended Neuro: motor grossly intact, alert Psych: strange affect, ? insight, appears intellegent and understands much of medical condition but perseverates and has poor retention of new information Vital Signs: Vital Signs: Last Vital Signs Temp 98.1 F 12/12/24 07:48 Pulse 57 12/12/24 07:48 Resp 20 12/12/24 07:48 BP 127/73 12/12/24 07:48 Pulse Ox 93 12/12/24 07:48 O2 Del Method Room Air 12/12/24 07:48 O2 Flow Rate 4 12/10/24 12:00 FiO2 60 12/06/24 00:57 BMI result Body Mass Index 18.4 Discharge Plan Discharge Anticipated Discharge Date/Time: 12/12/24 14:12 Patient Disposition: Xfer Psychiatric Hosp Discharge Diagnosis: lucila, hypoxia Referrals: Rosaline Smith NP [Primary Care Provider, Internal Medicine] - 1 Week Discharge Medications: New haloperidol 5 mg Tablet 5 mg PO BID PRN (Reason: Agitation) Qty: 0 0RF oxcarbazepine 300 mg Tablet 300 mg PO BID Qty: 0 0RF lorazepam 0.5 mg Tablet 0.25 mg PO BID PRN (Reason: Severe anxiety) Qty: 0 0RF hydroxyzine HCl 25 mg Tablet 25 mg PO Q6H PRN (Reason: Anxiety) Qty: 0 0RF Continued valacyclovir 500 mg tablet 500 mg PO DAILY tamsulosin 0.4 mg capsule 0.8 mg PO BEDTIME omeprazole 20 mg capsule,delayed release(DR/EC) 20 mg PO BEDTIME losartan 100 mg tablet 100 mg PO DAILY finasteride 5 mg tablet 5 mg PO DAILY hydroxyzine pamoate 25 mg capsule 25 mg PO BEDTIME trospium 20 mg tablet 20 mg PO BID Descovy 200-25 mg tablet 1 tab PO DAILY Gemtesa 75 mg tablet 75 mg PO DAILY Discontinued venlafaxine 37.5 mg capsule,extended release 24hr 37.5 mg PO DAILY lorazepam 0.5 mg tablet 0.5 mg PO DAILY PRN (Reason: anxiety) Diet: Advance to usual diet Activity on Discharge: As tolerated Stand Alone Forms: Patient Portal Discharge page Print Language: Macanese Care Plan Goals: Recovery Health Concerns: Altered mental status Plan of Treatment: Maty psych Assessment: See above
== END 2024-12-12 18:33 | DRG 885 ==
LOC: HO.ED 20:14 → HO.EDOVER 22:04 → HO.IMC 12-06 07:50
PROVIDERS: Emergency Medicine; Internal Medicine Pulmonary Disease; Physician Assistant; Admitting Provider Internal Medicine; Emergency Provider Emergency Medicine; PCP Nurse Practitioner Adult Health; Visit Provider Internal Medicine
DX: F30.9 Manic episode, unspecified (principal); Z68.1 Body mass index [BMI] 19.9 or less, adult; I16.0 Hypertensive urgency; N40.0 Benign prostatic hyperplasia without lower urinary tract symptoms; Z21 Asymptomatic human immunodeficiency virus [HIV] infection status; I10 Essential (primary) hypertension; R53.81 Other malaise; J44.9 Chronic obstructive pulmonary disease, unspecified; R63.6 Underweight; Z20.822 Contact with and (suspected) exposure to COVID-19; Z79.899 Other long term (current) drug therapy
CPT/HCPCS: 36415; 36600; 70450; 71045; 71275; 74177; 80048; 80053; 80076; 80307; 81001; 82375; 82607; 82803; 83605; 83735; 84100; 84443; 84484; 85025; 85027; 85379; 85610; 87637; 93005; 93306; 97162; 99285; J1650; J2250; J3360; J3486; Q9957; S9485

== ENCOUNTER → 2024-12-05 17:50 | Outpatient (BNV) | payer MEDICARE, OTHER, SELFPAY | PROVIDERS: Admitting Provider Internal Medicine; Emergency Provider Emergency Medicine; Visit Provider Internal Medicine Cardiovascular Disease | DX: I45.10 Unspecified right bundle-branch block (principal); I51.7 Cardiomegaly | CPT/HCPCS: 93010 ==

== ENCOUNTER → 2024-12-05 17:50 | Outpatient (BNV) | payer OTHER, SELFPAY | PROVIDERS: Emergency Provider Emergency Medicine; Visit Provider Nuclear Medicine | DX: N28.1 Cyst of kidney, acquired (principal); R09.02 Hypoxemia; R41.82 Altered mental status, unspecified | CPT/HCPCS: 70450; 71045; 71275; 74177 ==

== ENCOUNTER 2024-12-05 22:01 | Outpatient (BNV) | payer MEDICARE, OTHER, SELFPAY | END 2024-12-06 02:06 | PROVIDERS: Admitting Provider Internal Medicine; Emergency Provider Emergency Medicine; Visit Provider Internal Medicine Cardiovascular Disease | DX: I51.89 Other ill-defined heart diseases (principal); I51.7 Cardiomegaly; R00.1 Bradycardia, unspecified | CPT/HCPCS: 93010; 93306 ==

== ENCOUNTER 2024-12-05 22:01 | Outpatient (BNV) | payer OTHER, SELFPAY | END 2024-12-06 07:00 | PROVIDERS: Admitting Provider Internal Medicine; Emergency Provider Emergency Medicine; Visit Provider Radiology Diagnostic Radiology | DX: R09.02 Hypoxemia (principal) | CPT/HCPCS: 71045 ==

== ENCOUNTER → 2024-12-05 22:01 | Outpatient (BNV) | payer MEDICARE, OTHER, SELFPAY | PROVIDERS: Admitting Provider Internal Medicine; Emergency Provider Emergency Medicine; Visit Provider Internal Medicine Pulmonary Disease | DX: R09.02 Hypoxemia (principal) | CPT/HCPCS: 99222 ==

== ENCOUNTER → 2024-12-05 22:01 | Outpatient (BNV) | payer MEDICARE, OTHER, SELFPAY | PROVIDERS: Admitting Provider Internal Medicine; Emergency Provider Emergency Medicine; Visit Provider Internal Medicine | DX: F30.10 Manic episode without psychotic symptoms, unspecified (principal); J96.01 Acute respiratory failure with hypoxia | CPT/HCPCS: 99499 ==

== ENCOUNTER → 2024-12-05 22:01 | Outpatient (BNV) | payer MEDICARE, OTHER, SELFPAY | PROVIDERS: Admitting Provider Internal Medicine; Emergency Provider Emergency Medicine; Visit Provider Nurse Practitioner Family | DX: F30.9 Manic episode, unspecified (principal) | CPT/HCPCS: 99232 ==

== ENCOUNTER 2024-12-12 18:06 | Outpatient (BNV) | payer MEDICARE, OTHER, SELFPAY | END 2025-01-15 13:35 | PROVIDERS: Admitting Provider Psychiatry & Neurology Psychiatry; Visit Provider Psychiatry & Neurology Neurology | DX: R41.0 Disorientation, unspecified (principal) | CPT/HCPCS: 95717 ==

== ENCOUNTER 2024-12-12 18:06 | Inpatient (IN) | payer MEDICARE, OTHER, SELFPAY ==
--- NOTE | ~2024-12-12 | MR_ITS ---
EXAMINATION: MR BRAIN WITHOUT CONTRAST CLINICAL INFORMATION: Leukomalacia. Cognitive impairment. COMPARISON: Correlated to CT dated December 05, 2024. TECHNIQUE: MRI of the brain was obtained using routine sequences without contrast. FINDINGS: Patient's motion artifact. Linear subcortical restricted diffusion centered in the right precentral gyrus and left middle frontal gyrus without associated susceptibility. No acute intracranial hemorrhage, mass effect, midline shift, hydrocephalus or herniation. Bilateral multifocal patchy and punctate subcortical deep white matter and extracapsular hyperintense T2 FLAIR signal involving centrum semiovale and tomas radiata, superior frontal and cingulate gyri, bilaterally. Xanthogranulomatous choroid plexus bilaterally. Multifocal old lacunar infarct, basal ganglia, tomas radiata white matter cerebellar. Susceptibility signal mass associated and the right frontal tomas radiata white matter. Flow-void signal within the main cerebral vessels is normal. There is a 5 mm, round shaped, isodense to slightly hypointense T2 FLAIR nodular signal abnormalities centered in the right frontal horn of the lateral ventricle. Sellar/percent region demonstrated no signal abnormality or gross masses. Prominence of the cerebellar folia. There is prominence of the extra-axial CSF spaces cerebral sulci and ventricles. Craniocervical junction demonstrates normal position of the cerebellar tonsils. Hyperintense T2 signal in the right mastoid/petrous bone. Polypoid retention cyst left maxillary sinus. Mucosal thickening, ethmoid air cells. MR/MR head/brain wo con IMPRESSION: Acute nonhemorrhagic ischemia involving the right precentral gyrus and left middle frontal gyrus concerning for embolic etiology. Extensive white matter disease likely related to small vessel occlusive disease. 5 mm nodular lesion, frontal horn right lateral ventricle. Malignancy cannot be excluded. Recommend IV contrast enhanced MRI brain. Global cerebral atrophy. Electronically signed by: Vincent Pandya MD 12/15/2024 10:21 AM EDT
--- NOTE | ~2024-12-12 | FL_ITS ---
EXAMINATION: XR LUMBAR PUNCTURE CLINICAL INFORMATION: encephalopathy COMPARISON: None available. TECHNIQUE: Informed consent was obtained from the patient's proxy. Timeout was performed. Using fluoroscopic guidance, the L3-4 interlaminar space was identified, marked, and the skin prepped and draped in sterile fashion. Skin and subcutaneous tissues were anesthetized with 1% lidocaine. Subsequently, a 20-gauge Quincke spinal needle was advanced into the thecal sac, and clear CSF was noted at the needle hub. Approximately 20 mL of clear CSF was obtained passively, and sent for laboratory analysis. The patient tolerated the procedure well. There were no immediate complications. 1 fluoroscopic spot image obtained. FLUOROSCOPY TIME: 11 seconds DOSE AREA PRODUCT: 193.2 uGy-m2 (microgray-meter squared) FL/FL guided lumbar puncture LP IMPRESSION: Successful fluoroscopic guided L3-4 interlaminar lumbar puncture. Electronically signed by: Kevin Barahona MD 12/19/2024 12:36 PM EDT
--- NOTE | ~2024-12-12 | MR_ITS ---
CLINICAL HISTORY: pt returned for post contrast images to r/o tumor vs encephalitis MRI Brain Without and With Contrast: Comparison: CT 12/05/2024 Findings: Cortical sulci and cisterns are prominent. Three small 1 mm superficial DWI positive lesions are present on left and right frontal cortex but without diffusion restriction on ADC maps. No corresponding abnormality is present on other sequences. This finding may be artifactual, but cannot exclude few scattered small emboli, image 22, series 6. Multifocal deep white matter degenerative foci are present. There are no enhancing lesions. No vascular abnormalities. No sagittal sinus thrombosis. Basal ganglia are unremarkable. Mass effect: No shift in midline structures. Intracranial bleeding: No intraparenchymal bleeding or abnormal extra-axial blood fluid collections. Pituitary: Normal in size. Visualized sinuses: The 2 cm mucous retention cyst is present in the anterior left maxillary sinus. Middle ear cavities are clear. Vestibular nerve complexes are normal. There is T2 inflammatory signal involving right mastoid air cells, due to recent or remote infection. Orbital structures: Unremarkable. Calvarium: There is no abnormal meningeal enhancement, thickening or nodularity. Impression: 1. Scattered inflammatory signal involving right mastoid air cells due to recent or remote infection. 2. Few 1 mm diameter superficial left and right frontal lobe diffusion defects without restriction. This could be artifactual rather than emboli. 3. No MRI evidence of encephalitis. 4. Multifocal areas of white matter degeneration without enhancement with differential diagnosis statistically favoring etiology of atherosclerotic microangiopathy and/or high blood pressure. This document has been electronically signed by: Ryan Gardner MD on 12/15/2024 17:44:39
--- NOTE | ~2024-12-12 | CT_ITS ---
EXAMINATION: CTA NECK WITH CONTRAST (STROKE) CTA BRAIN WITH CONTRAST (STROKE) CLINICAL INFORMATION: Concerning vasculitis versus stroke. COMPARISON: Correlated to noncontrast CT brain dated December 05, 2024 and MRI brain dated December 15, 2024. TECHNIQUE: CTA of the head and neck was performed in the axial plane from the mediastinum to the skull vertex using 70 mL Omnipaque 350 intravenous contrast. Additional reformatted multiplanar images including maximum intensity projection MIP images are generated on the CT workstation. This CT examination was performed using dose optimization techniques as appropriate, variously including the following: *Automated exposure control *Adjustment of mA and/or kV according to patient size (this includes techniques or standardized protocols for targeted exams where dose is matched to indication/reason for exam; i.e. extremities or head) *Use of iterative reconstruction technique. DLP: 1641 mGy centimeter. FINDINGS: The degree of stenosis determined by criteria similar to NASCET. Brain: No acute intracranial hemorrhage, mass effect, midline shift, hydrocephalus or herniation. Bilateral multifocal patchy and confluent deep periventricular white matter hypodensities involving centrum semiovale and tomas radiata. Chest CTA: No aneurysm or dissection or focal stenosis in the thoracic aortic arch. Calcified plaque thoracic aortic arch wall. Neck CTA: Right CCA: Normal patency. Tortuosity. No focal stenosis. No intimal flap. Right ICA: Irregular shaped calcified plaques representing less than 50% stenosis. Normal patency. No intimal flap. Left CCA: Normal patency. Tortuosity. No focal stenosis. No intimal flap. Left ICA: Calcified plaque. No high degree stenosis. No intimal flap. Normal patency. Tortuosity. V1/V2 segments: Tortuosity. Calcified plaques in the origin. Normal patency. No focal stenosis. No intimal flap. Right vertebral artery is dominant. Brain CTA: Anterior cerebral circulation: ICA: Calcified plaques in the cavernous supraclinoid segments. Normal patency. No focal stenosis. No abrupt cut off MCA's: Normal patency. No focal stenosis. No abrupt cut off. Bifurcation/Attestation - Resident demonstrated no vascular irregularity. ACAs: Normal patency. No focal stenosis. No abrupt cut off. Ophthalmic arteries are patent without gross vascular irregularity at the origin. The right posterior communicating artery is patent without vascular irregularity at the origin. The anterior communicating artery is not identified. There is a 2 mm vascular irregularity at the right A2 origin. Posterior cerebral circulation: V3/V4 segments: Normal patency. No focal stenosis. No intimal flap. Right vertebral artery slightly dominant. Posterior inferior cerebral arteries are patent. Basilar artery is patent without focal stenosis or intimal flap. Superior cerebellar arteries are patent. mortgage coordinator: Normal patency. No focal stenosis. No abrupt cut off Ancillary findings: Multilevel cervical spondylosis C3 C7 pronounced at C5-6 and C6-7. Large retention cysts versus polyp, left maxillary sinus. Probable effusion, right mastoid tip. The main cerebral venous sinuses are patent without intraluminal filling defects. CT/CT angio head neck IMPRESSION: No main cerebral artery occlusion or embolus. Irregular calcified plaque at the proximal right ICA at representing less than 50% stenosis. No dissection. Probable 2 mm aneurysm, right A2 segment. This critical test result is communicated to: Electronically signed by: Vincent Pandya MD 12/21/2024 12:02 PM EDT
--- NOTE | ~2024-12-12 | XR_ITS ---
EXAMINATION: XR CHEST CLINICAL INFORMATION: Congestion COMPARISON: December 06, 2024 TECHNIQUE: 2 views of the chest were obtained. FINDINGS: Heart size is normal. Lungs are clear and well aerated. Retrocardiac mass with central gas is again identified consistent with hiatal hernia. XR/XR chest 2V IMPRESSION: No acute disease. Hiatal hernia involving stomach fundus. Electronically signed by: Mario Gutiérrez MD 01/12/2025 11:28 AM EDT
[2024-12-12 18:44] VITALS: BP 164/87; PULSE 84; RESP 18; TEMP 36.9; O2SAT 91
[2024-12-12 18:52] VITALS: BMI 21.0
--- NOTE | 2024-12-12 19:12 | PC.NURSE ---
74 year old white male admitted to [facility] at 1837 from [id number] via wheelchair for short term psych stay for unspecified anxiety at 1837. A skin check and safety exchange architect completed, skin is clear with bandages on both arms from lab draws and his old IV. Patient to sign in on a CV. He is alert and oriented x3 with some insight into his situation. He is pleasant and cooperative. Nirali Albarran WATER SUPPLY ENGINEER notified of admission. Patient is Lactose intolerant and cannot eat aggarwal for tenriism reasons. Vital signs were stable except a low O2 Sat of 91% on room air. He has poor vascular perfusion in all extremities, poor cap refills. He complains about being weak from this whole situation and says that he is normally very fit. he stated that he doesn't use a walker at home but he may need one here due to weakness. He is asking about his Ativan but it was discontinued.
[2024-12-12] MEDS: Milk of Magnesia 30 ML ORAL.SUSP PO (22:38)
[2024-12-13] VITALS (8 sets, daily range): BP systolic 153–197; BP diastolic 83–110; PULSE 57–76; RESP 16–18; TEMP 36.3–37.1; O2SAT 93–98
--- NOTE | 2024-12-13 02:47 | PC.NURSE ---
Admission Note Cristi Kitchen, a 74-year-old man, was self presented to [facility] ED with evelyn requesting to be turned into a female., however was later hospitalized for Hypoxia. The patient has a medical and psychiatric history of? HTN, BPH, Mood D/O, Depression, and Anxiety D/O. Cristi was transferred S#1 from the [facility] at 1837, 12/12/24, signed CV/approved by the provider, with an admitting diagnosis of? unspecified anxiety disorder. The patient also requested a 3-day notice paper/offered/ he signed. A patient later called his brother reported that he was coerced to sign paper. The brother called [facility], after providing clarification and advising him to call in the morning for more information, the brother agreed, and he updated Cristi which helped him calm down.? Cristi is full-code. He is alert and oriented, times three but forgetful. Behaviour mostly pleasant but at times reactive and suspicious but compliant with the admission process. Thought content logical/clear, thought process tangential. Mood depressed, frustrated, and anxious. Affect flat. Endorses depression 8/10 and 10/10 but refuses the PRN Ativan stating the root cause of his mental health problem is Ativan, Denied SI/HI/AVH. Skin assessed by a day shift colleague reported no issues. Med reconciliation was completed based on a medical record from [facility], approved by the provider, MAR active, and the patient is suspicious about his medication but compliant with medication, takes it whole with water. The patient reported difficulty moving bowel requested suppository but offered MOM/accepted/pending effect.? He ambulates independently, independent with ADL care, showered, and follows direction well. Labs are unremarkable. Medical records show UA negative. Utox positive for THC,? EKG abnormal/sinus bradycardia/ST & T wave abnormality. Cristi signed his treatment plan, safety tool, and release paper. Contraband searched. Ulisses is on for 5-minute for a safety check.
[2024-12-13] MEDS: Emtricitabine/Tenofov Alafenam TABLET 1 TAB PO (10:32)
--- NOTE | 2024-12-13 14:57 | HO.PSYADMNOT ---
HPI Date of Service: 12/13/24 Chief Complaint: evelyn Sources of Information: patient interviewed, chart reviewed and crisis/core team assessment reviewed HPI Subjective Notes: Smith Warning and 3 Day Healthcare Proxy: Yes Guardianship: No Medical Problems Affecting Mental Status: Yes (Hypoxia-is the reason brought him to the hospital. It is resolved. ) Narrative: Per care team note: Patient is 74 years old assigned male at with pronounced she her hers who was brought to [facility] ED on 12/05/24 requesting to be turn into a female . He was prescribed as manic and was unable to answer questions appropriately. He was admitted medically due to being hypoxic. Patient was assessed on 12/11 by the care team. Thought process was tangential, disorganized, with some memory impairments, with some periods of lucidity. However patient later on did not exhibit any cognitive impairment. He scores 30 on mini-mental status exam. Speech remain is rapid. 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 Living in his own apartment. However the past couple of months, increased confusion, disorganized, has turned his business upside-down. And is no longer safe or able to care for self at home alone. On Maty/S1: Patient states the reason brought him here was I was suffering from lorazepam. I am coming down on lorazepam . Reports he was given Ativan 3-4 weeks ago for anxiety from his outpatient psychiatrist/nurse practitioner, but it does not do anything good for him, reported that it makes him more anxious I trust her but I am met wrong nurse practitioner . Patient as if he can go to his room to get some water after the start of conversation. Denies mental health or substance use in the family. Denies substance use himself. But reports history of cocaine use in his 30s. Using marijuana twice monthly. Drinking 1 glass of 1 3 to 4 times a week. No smoking history. No signs symptoms of withdrawal from any substance at this time. Denies SI/SIB/HI/AVH. Denies history of suicidal thoughts, denied history of suicide attempts or self-harm behavior history. He has been seeing the outpatient nurse practitioner and therapist for 10-15 years. Denies mental health diagnosis at 1st but later on reported that he may have OCD which he is not sure what OCD behaviors he has. He recognized that they told me I am less competent . Reports declines in sleep only slept for 4-6 hours. Reports he has has been eating good I like to eat a lot of food. I am a healthy eater. Mood is very anxious and tired . Reports increased stress from his own business. He worries about his employee, and cannot manage his business whle he is in here. Which he is very perseverative on going home. Reports that being in here is doing no good for him is may make him more anxious. He has no memory regarding his mental status lately. He is aware that his business having some down time, increased stress from the business sometimes when it his slow, he even pay out of his pocket to pay for his employees and dad he has is he good boss. He does not want to be here, as he is wants step away from ideal life where he can close the abuse in his and enjoy his alf. I want to get out of here to resume my life . He appears to be an severe anxious, perseverative on leaving, wants to leave by Wednesday. We will do collateral with outpatient nurse practitioner, therapist, and family members. He does not appear to be psychotic, but racing thoughts, disorganized, perseverative, poor insight of psychiatric history, poor insight of reason brought him to the hospital, poor judgment. However, he is alert and awakex3. Mood is anxious, speech WNL with mild pressure-, racing thoughts, Thoughts process and thoughts content is tangential and circumstances, not treatment focused even though he has no SI/SIB/HI/AVH. Per his outpatient therapist, patient has been paranoid and this is not at his baseline. Past Psychiatric History: Therapist: Krysten ([place], [place])-follow the same therapist since 2018 Outpatient psychiatric nurse practitioner Rosaline Smith- been with this provider for 10-15 years Denies hx of IPLOC/PHP or Detox denies hx of SI/SIB/HI/AVH. No prior suicide attempts or suicidal thoughts history. Medical Evaluation Reviewed: Yes [facility] Medical History Sleep trouble Family History: denies mental health illnesses and substance use in the family. Reports both parents was . He only has 1 brother - Gene who is very supportive to him. He is not sure if his brother is his healthcare proxy. He also has one stepdaughter. Per legal paper, she is his healthcare proxy. Social History: Lives alone. . no biological children. 1 step daughter (adult). He has some college level. Started to do his own business and he was 18 years old. 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 Reports he has 7 employees that he needs to taking care. Housing is stable, he is able to return after discharge. Substance History: History of using cocaine years ago in his 30s. Reports smoking marijuana twice a month with last smoke was 2 months ago. He hates cigarettes, therefore no cigarette smoking history. He drinks 1 glass of wine 3 to 4 times a week. Repeatedly saying just only 1 glass only. Trauma History: denies, however he reports being bullied by a lot of people when he was younger, Diagnostics Vital Signs (24Hr): Vital Signs - 24 hr 12/12/24 18:44 12/13/24 07:01 12/13/24 08:10 Temperature 98.5 F 97.3 F 97.8 F Pulse Rate 84 66 70 Respiratory Rate 18 18 18 Blood Pressure 164/87 H 153/83 H 167/90 H Pulse Oximetry 91 L 93 98 Oxygen Delivery Method Room Air Room Air Room Air BMI result Body Mass Index 21.0 Meds/Allergies Meds Home Medications ?Medication ?Instructions ?Recorded ?Confirmed ?Type emtricitabine 200 mg-tenofovir 1 tab PO DAILY 12/05/24 12/12/24 History alafenamide fumarate 25 mg tablet (Descovy) finasteride 5 mg tablet 5 mg PO DAILY 12/05/24 12/12/24 History losartan 100 mg tablet 100 mg PO DAILY 12/05/24 12/12/24 History omeprazole 20 mg capsule,delayed 20 mg PO BEDTIME 12/05/24 12/12/24 History release tamsulosin 0.4 mg capsule 0.8 mg PO BEDTIME 12/05/24 12/12/24 History trospium 20 mg tablet 20 mg PO BID 12/05/24 12/12/24 History valacyclovir 500 mg tablet 500 mg PO DAILY 12/05/24 12/12/24 History vibegron 75 mg tablet (Gemtesa) 75 mg PO DAILY 12/05/24 12/12/24 History Allergies Allergies Allergy/AdvReac Type Severity Reaction Status Date / Time lactose AdvReac Intermediate Diarrhea Verified 12/13/24 05:35 Mental Status Exam Mental Status Exam Narrative: Patient is alert and oriented x4; behavior is cooperative, friendly with moderate to severe anxiety; patient is not in distress; dressed in casual attire with kempt hair with adequate hygiene; mood is described as anxious and tired and affect congruent; eye contact appropriate; Speech is normal rate, volume and prosody and not pressured; no psychomotor agitation/retardation present; thought process is somewhat disorganized but not goal directed; Thought content is not focus on treatment, mainly focus on going home to take care of his own business, relevant topics discussed without any delusional content, paranoid ideation or grandiosity; denies any SI/SIB/HI. Denies AH and there is no evidence of perceptual disturbance. However, Patient's insight and judgment impaired. . Assessment & Plan Assessment & Plan (1) Severe anxiety: Status: Acute Code(s): F41.9 - Anxiety disorder, unspecified (2) Manic behavior: Status: Acute Code(s): F30.10 - Manic episode without psychotic symptoms, unspecified Plan HPI: Patient is 74 years old assigned male at with pronounced she her hers who was brought to [facility] ED on 12/05/24 requesting to be turn into a female . He was prescribed as manic and was unable to answer questions appropriately. He was admitted medically due to being hypoxic. Patient was assessed on 12/11 by the care team. Thought process was tangential, disorganized, with some memory impairments, with some periods of lucidity. However patient later on did not exhibit any cognitive impairment. He scores 30 on mini-mental status exam. Speech remain is rapid. 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 Formulation/clinical reasoning: Increase anxiety, worsening in the past couple of months, disorganized, racing thoughts, poor insight and poor judgment, poor sleep, somewhat confused/disorganized. Mental status change, not at baseline in the past couple months. Employees and his family concern about his current presentation. He is not able to care for himself at home. Given the above information, patient would be benefit in restrictive setting/environment for safety, diagnostic/diagnosis, cognitive testing, and provide therapeutic environment. Collateral with family and outpatient providers prior to discharge. Hospital course: Continue with home medications included medication for HIV preventative and herpes outburst. Haldol 5 mg b.i.d. p.r.n. for agitation. Elevated blood pressure which could be from anxiety, started clonidine 0.1 b.i.d. p.r.n.. We will continue to monitor. Increase Trileptal 300 b.i.d. to t.i.d. for mood. Melatonin 6 mg at bedtime for insomnia. He also have trazodone as needed for severe insomnia. Plan Patient on 15 minute checks for safety. Admitted to [facility]. [facility]. Singed 3-day notice on 12/12 which is on 12/15. Work with treatment team to do collateral and FLU appointments if possible for aftercare. 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 Brother requests to have a call back from provider. We will do it later on today. Step daughter is a healthcare proxy. O2 sats is in 90s since admitted Collateral note: Spoke with his brother Gene at [phone]: Brother does not think he is psychotic, paranoid. But agreed that worsening anxiety since was given as it Ativan that affect patient's memory. He he presented with strange behaviors/ abnormal behavior not able to say anything when people asking, and he did not go to the appointment . Brother believes that being forced to bring to the hospital, and being in the hospital setting can increase patient anxiety. Brother believes that reasonable for patient to be anxious being into this situation and worry about his business what happened to his business if he is in here . History of given Xanax prior to prescribed Ativan which is not doing any good for the patient. Brother expressed concerns of him going home with the state. He was updated with current presentation and medication changes included increase Trileptaly, melatonin added on for insomnia, clonidine for anxiety/elevated blood pressure, Haldol p.r.n. as well as PRNs given. Brother believes that patient can afford to pay for someone to taking care of him at home, cooking. Brother would like to get patient a new outpatient psychiatrist as current ran outpatient nurse practitioner is not responding, is hard to contact her. Brother receptive to the plan, and appreciate the phone call with the hope that the anxiety will be under control, and his brother can go home by Wednesday patient signed a 3 day notice which is up this Wednesday. Patient educated on: diagnosis, medication risk/benefits and therapeutic strategies Informed Consent: further education needed Reason for continued inpatient stay Substantial Risk for: med/psych decompensation Statement Statement: I have reviewed the history and physical and performed a pertinent examination on my patient. No changes have occurred unless specified. If the History and Physical was not performed prior to admission, the Hospitalist's service will be consulted for completing the admission physical. Time Spent With Patient Time: Total time managing care of this patient today ____ minutes.
--- NOTE | 2024-12-13 15:52 | PC.NURSE ---
Addendum entered by Rachelle Clarke RN 12/13/24 17:44: Pt was later offered 0.1 mg of Clonidine PRN and after continued education and reinforcement, he spoke with his brother on the phone, and pt was agreeable and accepted the PRN Clonidine as well as 5mg of Haldol for anxiety and agitation pending effect. Original Note: Pt B/P was 168/105 at 1534 after being elevated for most of the day despite scheduled morning Losartan. Provider notified and advised 0.05 mg of Clonidine one time order. When RN approached pt, pt stated I won't take any medication without my brothers consent. RN educated pt on the importance of this medication to lower his blood pressure and encouraged pt to call his brother to which he stated I cannot call my brother until the first person I talked to talks to him and returns from her mission. RN reeducated pt and pt continued to refuse clonidine, stated I'm sorry but nothing will sway me.
[2024-12-14 08:39] VITALS: BP 143/67; PULSE 56; RESP 20; TEMP 37.2; O2SAT 96
[2024-12-14] MEDS: Emtricitabine/Tenofov Alafenam TABLET 1 TAB PO (08:41)
[2024-12-14 08:43] VITALS: BMI 21.4
--- NOTE | 2024-12-14 15:06 | P.PNPSI_ITS ---
Subjective Subjective Date of Service: 12/14/24 Reason For Visit: evelyn Subjective Notes: Conditional Voluntary and 3 Day Interim History: Patient seen chart extensively reviewed case reviewed with neurology and also with patient's brother at his request. Patient anxious but improved calmer continues to focused on lorazepam 0.5 mg being the cause of all of his recent concerns and his behavior. Tried to get the cognitive history patient denies history of evelyn or depression. Difficult to get a history quite obsessional and rigid in his thinking. Head CT scan Mental Status Exam Mental Status Exam Narrative: Patient is alert and oriented x4; behavior is cooperative, friendly with moderate to severe anxiety; patient is not in distress; dressed in casual attire with kempt hair with adequate hygiene; mood is described as anxious and affect congruent; eye contact appropriate; Speech is normal rate, volume and prosody and not pressured; no psychomotor agitation/retardation present; thought process is somewhat circumstantial obsessional and perseverative Thought content is not focus on treatment, focused on returning home does not seem interested re ader overly concerned over his recent difficulty with cognition transient delirium relates all of this to being on 0.5 mg wants to twice a day which he states he never overused relevant topics discussed without any delusional content, paranoid ideation or grandiosity; denies any SI/SIB/HI. Denies AH and there is no evidence of perceptual disturbance. However, Patient's insight and judgment impaired. . Diagnostics Vital Signs (24Hr): Vital Signs - 24 hr 12/13/24 15:34 12/13/24 17:30 12/13/24 18:40 Temperature Pulse Rate Respiratory Rate Blood Pressure 168/105 H 197/110 H 182/104 H Pulse Oximetry Oxygen Delivery Method 12/13/24 18:57 12/13/24 20:00 12/14/24 08:39 Temperature 98.8 F 98.9 F Pulse Rate 76 57 56 Respiratory Rate 16 20 Blood Pressure 155/87 H 143/67 H Pulse Oximetry 97 96 Oxygen Delivery Method Room Air Room Air BMI result Body Mass Index 21.4 Medications Medications Current Medications Acetaminophen (Acetaminophen 325 Mg Tablet) 650 mg PO Q6H PRN PRN Reason: Headache/Pain, Scale 1-10 Al Hydroxide/Mg Hydroxide (Magnesium Hydrox/Alum Hydrox 30 Ml Oral.Susp) 30 ml PO Q6H PRN PRN Reason: Heartburn/Nausea Clonidine HCl (Clonidine Hcl 0.1 Mg Tablet) 0.1 mg PO BID PRN; Protocol PRN Reason: severe anxiety Last Admin: 12/13/24 17:30 Dose: 0.1 mg Emtricitabine/Tenofovir Alafenamide (Emtricitabine/Tenofov Alafenam Tablet) 1 tab PO DAILY [facility] Last Admin: 12/14/24 08:41 Dose: 1 tab Finasteride (Finasteride 5 Mg Tablet) 5 mg PO DAILY [facility] Last Admin: 12/14/24 08:41 Dose: 5 mg Haloperidol (Haloperidol 5 Mg Tablet) 5 mg PO BID PRN PRN Reason: Agitation Last Admin: 12/13/24 17:36 Dose: 5 mg Hydroxyzine HCl (Hydroxyzine Hcl 25 Mg Tablet) 25 mg PO Q6H PRN PRN Reason: Anxiety Losartan Potassium (Losartan Potassium 50 Mg Tablet) 100 mg PO DAILY [facility]; Protocol Last Admin: 12/14/24 08:41 Dose: 100 mg Magnesium Hydroxide (Milk Of Magnesia 30 Ml Oral.Susp) 30 ml PO DAILY PRN PRN Reason: Constipation Last Admin: 12/12/24 22:38 Dose: 30 ml Melatonin (Melatonin 3 Mg Tablet) 6 mg PO BEDTIME [facility] Last Admin: 12/13/24 20:53 Dose: 6 mg Omeprazole (Omeprazole 20 Mg Capsule.Dr) 20 mg PO BEDTIME [facility] Last Admin: 12/13/24 20:53 Dose: 20 mg Oxcarbazepine (Oxcarbazepine 300 Mg Tablet) 300 mg PO TID [facility] Last Admin: 12/14/24 08:41 Dose: 300 mg Tamsulosin HCl (Tamsulosin Hcl 0.4 Mg Capsule) 0.8 mg PO BEDTIME [facility] Last Admin: 12/13/24 20:53 Dose: 0.8 mg Tolterodine Tartrate (Tolterodine Tartrate La 4 Mg Cap.Er.24h) 4 mg PO DAILY [facility] Last Admin: 12/14/24 08:41 Dose: 4 mg Trazodone HCl (Trazodone Hcl 50 Mg Tablet) 50 mg PO BEDTIME MRX1 PRN PRN Reason: Insomnia Valacyclovir HCl (Valacyclovir Hcl 500 Mg Tablet) 500 mg PO DAILY [facility] Last Admin: 12/14/24 08:41 Dose: 500 mg Allergies Allergies Allergy/AdvReac Type Severity Reaction Status Date / Time lactose AdvReac Intermediate Diarrhea Verified 08/20/25 05:35 Assessment & Plan Assessment & Plan (1) Severe anxiety: Status: Acute Code(s): F41.9 - Anxiety disorder, unspecified (2) Manic behavior: Status: Acute Code(s): F30.10 - Manic episode without psychotic symptoms, unspecified Plan HPI: Patient is 74 years old assigned male at with pronounced she her hers who was brought to [facility] ED on 12/05/24 requesting to be turn into a female . He was prescribed as manic and was unable to answer questions appropriately. He was admitted medically due to being hypoxic. Patient was assessed on 12/11 by the care team. Thought process was tangential, disorganized, with some memory impairments, with some periods of lucidity. However patient later on did not exhibit any cognitive impairment. He scores 30 on mini-mental status exam. Speech remain is rapid. 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 Formulation/clinical reasoning: Increase anxiety, worsening in the past couple of months, disorganized, racing thoughts, poor insight and poor judgment, poor sleep, somewhat confused/disorganized. Mental status change, not at baseline in the past couple months. Employees and his family concern about his current presentation. He is not able to care for himself at home. Given the above information, patient would be benefit in restrictive setting/environment for safety, diagnostic/diagnosis, cognitive testing, and provide therapeutic environment. Collateral with family and outpatient providers prior to discharge. Hospital course: Continue with home medications included medication for HIV preventative and herpes outburst. Haldol 5 mg b.i.d. p.r.n. for agitation. Elevated blood pressure which could be from anxiety, started clonidine 0.1 b.i.d. p.r.n.. We will continue to monitor. Increase Trileptal 300 b.i.d. to t.i.d. for mood. Melatonin 6 mg at bedtime for insomnia. He also have trazodone as needed for severe insomnia. Plan Patient on 15 minute checks for safety. Admitted to [facility]. Singed 3-day notice on 12/12 which is on 12/15. Work with treatment team to do collateral and FLU appointments if possible for aftercare. 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 Brother requests to have a call back from provider. We will do it later on today. Step daughter is a healthcare proxy. O2 sats is in 90s since admitted Collateral note: Spoke with his brother Dean at [phone]: Brother does not think he is psychotic, paranoid. But agreed that worsening anxiety since was given as it Ativan that affect patient's memory. He he presented with strange behaviors/ abnormal behavior not able to say anything when people asking, and he did not go to the appointment . Brother believes that being forced to bring to the hospital, and being in the hospital setting can increase patient anxiety. Brother believes that reasonable for patient to be anxious being into this situation and worry about his business what happened to his business if he is in here . History of given Xanax prior to prescribed Ativan which is not doing any good for the patient. Brother expressed concerns of him going home with the state. He was updated with current presentation and medication changes included increase Trileptaly, melatonin added on for insomnia, clonidine for anxiety/elevated blood pressure, Haldol p.r.n. as well as PRNs given. Brother believes that patient can afford to pay for someone to taking care of him at home, cooking. Brother would like to get patient a new outpatient psychiatrist as current ran outpatient nurse practitioner is not responding, is hard to contact her. Brother receptive to the plan, and appreciate the phone call with the hope that the anxiety will be under control, and his brother can go home by Wednesday patient signed a 3 day notice which is up this Wednesday. 12/14/2024 Patient with anxiety obsessional thoughts not willing to integrate any concerns regarding his capacities and recent medical hospitalization and change in beh avior. Patient continues to attribute this all to being on very low-dose Ativan. Seems somewhat better reportedly on carbamazepine 300 t.i.d. given patient on 3 day an upcoming discharge will try and lowered to 300 b.i.d. [place] case reviewed with neurology recommended MRI spoke with patient's brother in discussed medical workup differential diagnosis encourage rejection of 3 day otherwise will need need to discharge patient on 3 day. No evidence of active SI or HI Informed Consent: further education needed Reason for continued inpatient stay Substantial Risk for: inability to function, rapid decompensation and med/psych decompensation Time Spent With Patient Time: Total time managing care of this patient today _45___ minutes.
[2024-12-14 20:00] VITALS: BP 166/82; PULSE 57; TEMP 37.4; O2SAT 99
--- NOTE | 2024-12-15 | EEG_ITS ---
This is a 16 channel EEG with an EKG lead. Patient is awake and drowsy during the tracing. Background EEG rhythm is about 10 hertz 5-50 microvolt posteriorly and lower amplitude fast anteriorly. Some lead and muscle artifacts are noted. There was mild asymmetry with right hemispheric lead showing somewhat decreased amplitude. No definite sharp waves or spikes or paroxysmal tendency noted. Cardiac lead does not reveal any significant abnormality. Photic stimulation is unremarkable. Impression: Mild nonspecific abnormality with slightly decreased amplitude in right hemisphere but otherwise no epileptic tendency or discharges suggestive of CJD. MTDD
[2024-12-15 07:51] VITALS: BP 171/82; PULSE 59; RESP 20; TEMP 36.2; O2SAT 96
[2024-12-15] MEDS: Emtricitabine/Tenofov Alafenam TABLET 1 TAB PO (07:53)
--- NOTE | 2024-12-15 10:18 | PM.NEUROCN ---
History of Present Illness Data of Consult Service Date: 12/15/24 Primary Care Provider: Unknown Physician HPI Reason for consult: Encephalopathy 74 years old man who was admitted on psychiatric floor. His detail presentation was documented on initial notes. He was brought to hospital with acute psychiatric symptoms including paranoia and agitation. Initially, his oxygen saturation number was low and he was thought to be hypoxic but on later testing it was not confirmed and considered to be a lab error. There was no history of seizure-like episode. He has not complain of any physical pain. symptoms He said that he was fine until couple of months ago I could not independently confirmed it. I tried calling his brother but he did not hand picker the phone. He said that he did not have any . He mentioned 1 lady and some other friends. He has been asking to leave saying that he would sleep better at home. Review of Systems Review of Systems: No recent cold or flu-like illness or rash. No seizure. 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 If so, by whom?: No Do you feel safe in your current relationship?: No Current Relationship Is there a partner from a previous relationship who is making you feel unsafe now?: No Are you made to feel afraid or neglected: No Advance Directives: No Advance Directives Information Provided: No Do you have thoughts of harming others: None Do you have a plan to hurt others: No Plan Recently lost weight without trying: No Eating poorly because of decreased appetite: No Nutrition Risks: No Nutritional Risk Poor oral hygiene: No service: No Meds Allergies Allergy/AdvReac Type Severity Reaction Status Date / Time lactose AdvReac Intermediate Diarrhea Verified 12/13/24 05:35 Active Medications: Current Medications Acetaminophen (Acetaminophen 325 Mg Tablet) 650 mg PO Q6H PRN PRN Reason: Headache/Pain, Scale 1-10 Al Hydroxide/Mg Hydroxide (Magnesium Hydrox/Alum Hydrox 30 Ml Oral.Susp) 30 ml PO Q6H PRN PRN Reason: Heartburn/Nausea Clonidine HCl (Clonidine Hcl 0.1 Mg Tablet) 0.1 mg PO BID PRN; Protocol PRN Reason: severe anxiety Last Admin: 12/15/24 01:33 Dose: 0.1 mg Emtricitabine/Tenofovir Alafenamide (Emtricitabine/Tenofov Alafenam Tablet) 1 tab PO DAILY [facility] Last Admin: 12/15/24 07:53 Dose: 1 tab Finasteride (Finasteride 5 Mg Tablet) 5 mg PO DAILY [facility] Last Admin: 12/15/24 07:55 Dose: 5 mg Haloperidol (Haloperidol 5 Mg Tablet) 5 mg PO BID PRN PRN Reason: Agitation Last Admin: 12/13/24 17:36 Dose: 5 mg Hydroxyzine HCl (Hydroxyzine Hcl 25 Mg Tablet) 25 mg PO Q6H PRN PRN Reason: Anxiety Losartan Potassium (Losartan Potassium 50 Mg Tablet) 100 mg PO DAILY [facility]; Protocol Last Admin: 12/15/24 07:53 Dose: 100 mg Magnesium Hydroxide (Milk Of Magnesia 30 Ml Oral.Susp) 30 ml PO DAILY PRN PRN Reason: Constipation Last Admin: 12/12/24 22:38 Dose: 30 ml Melatonin (Melatonin 3 Mg Tablet) 6 mg PO BEDTIME [facility] Last Admin: 12/14/24 20:18 Dose: 6 mg Omeprazole (Omeprazole 20 Mg Capsule.Dr) 20 mg PO BEDTIME [facility] Last Admin: 12/14/24 20:17 Dose: 20 mg Oxcarbazepine (Oxcarbazepine 300 Mg Tablet) 300 mg PO BID [facility] Last Admin: 12/15/24 07:54 Dose: 300 mg Tamsulosin HCl (Tamsulosin Hcl 0.4 Mg Capsule) 0.8 mg PO BEDTIME [facility] Last Admin: 12/14/24 20:17 Dose: 0.8 mg Tolterodine Tartrate (Tolterodine Tartrate La 4 Mg Cap.Er.24h) 4 mg PO DAILY [facility] Last Admin: 12/15/24 07:54 Dose: 4 mg Trazodone HCl (Trazodone Hcl 50 Mg Tablet) 50 mg PO BEDTIME MRX1 PRN PRN Reason: Insomnia Valacyclovir HCl (Valacyclovir Hcl 500 Mg Tablet) 500 mg PO DAILY [facility] Last Admin: 12/15/24 07:54 Dose: 500 mg Home Medications ?Medication ?Instructions ?Recorded ?Confirmed ?Last Taken ?Type emtricitabine 200 mg-tenofovir 1 tab PO DAILY 12/05/24 12/12/24 Unknown History alafenamide fumarate 25 mg tablet (Descovy) finasteride 5 mg tablet 5 mg PO DAILY 12/05/24 12/12/24 Unknown History losartan 100 mg tablet 100 mg PO DAILY 12/05/24 12/12/24 Unknown History omeprazole 20 mg capsule,delayed 20 mg PO BEDTIME 12/05/24 12/12/24 Unknown History release tamsulosin 0.4 mg capsule 0.8 mg PO BEDTIME 12/05/24 12/12/24 Unknown History trospium 20 mg tablet 20 mg PO BID 12/05/24 12/12/24 Unknown History valacyclovir 500 mg tablet 500 mg PO DAILY 12/05/24 12/12/24 Unknown History vibegron 75 mg tablet (Gemtesa) 75 mg PO DAILY 12/05/24 12/12/24 Unknown History Physical Exam Vital Signs: Vital Signs: Last Vital Signs Temp 97.2 F 12/15/24 07:51 Pulse 59 12/15/24 07:51 Resp 20 12/15/24 07:51 BP 171/82 H 12/15/24 07:51 Pulse Ox 96 12/15/24 07:51 O2 Del Method Room Air 12/15/24 07:51 BMI result Body Mass Index 21.4 Neuro: Other: He is alert and awake with normal spontaneity and fluency of speech. Comprehension is intact. He follows commands. He talks about telling me some things about his life but then in the middle of conversation he forgets and changes topic. Face is symmetrical. Visual russell are full. There was no significant abnormal movement or myoclonic jerking type of movement. Deep tendon reflexes are trace to 1+ with flexor plantars. He is able to get up and walk without assistance. Speech is normal. Results Labs Labs: His head CT revealed mild cerebral and cerebellar atrophy little bit more for his stated age. [id number] chronic microvascular ischemic changes were also noted. These findings were confirmed on MRI. In addition MRI also revealed tiny areas of restricted diffusion bilaterally in superficial cortical locations. Assessment and Plan (1) Encephalopathy: Qualifiers: Encephalopathy type: unspecified encephalopathy Qualified Code(s): G93.40 - Encephalopathy, unspecified Status: Acute 74 years old man with acute change in mental status with psychiatric symptoms of paranoia and agitation and confusion with forgetfulness. This seems to be a relatively recent and according to him he was fine couple of months ago. This would suggest a rapidly progressive process. Differential diagnosis would include atypical encephalitis from an atypical infection, or an inflammatory process including autoimmune condition. It would also include possibility of Crutzfeld Lobito disease. His MRI of brain did reveal subtle abnormalities suggesting any of these possibilities. I recommend sending serum test for Lyme, syphilis, HIV, and blood test for sed rate. If serum or blood tests do not provide any lead, a lumbar puncture is needed to do testing on CSF. EEG is also recommended, which in some cases can also help. Procedures Date of Service Date of Service: 12/15/24
--- NOTE | 2024-12-15 10:42 | PM.NEUROCN ---
History of Present Illness Data of Consult Service Date: 01/01/25 Primary Care Provider: Unknown Physician HPI Reason for consult: Encephalopathy 74 years old man with hypertension and related ischemic disease of brain and cerebral atrophy presented with subacute onset of significant behavioral syndrome and was suspected to have a pathology that could affect him in this manner including in atypical infection or inflammation. He was seen again for follow-up. His CSF CTA D testing or pre on disease testing was negative. CSF protein and glucose were normal. There was no indication of any seizure-like episode. She was not complaining of any physical pain. 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 If so, by whom?: No Do you feel safe in your current relationship?: No Current Relationship Is there a partner from a previous relationship who is making you feel unsafe now?: No Are you made to feel afraid or neglected: No Are you DNR?: No Advance Directives: No Advance Directives Information Provided: No Do you have thoughts of harming others: None Do you have a plan to hurt others: No Plan Recently lost weight without trying: No Eating poorly because of decreased appetite: No Nutrition Risks: No Nutritional Risk Poor oral hygiene: No service: No Meds Allergies Allergy/AdvReac Type Severity Reaction Status Date / Time No Known Allergies Allergy Verified 12/16/24 19:54 Active Medications: Current Medications Acetaminophen (Acetaminophen 325 Mg Tablet) 650 mg PO Q6H PRN PRN Reason: Headache/Pain, Scale 1-10 Al Hydroxide/Mg Hydroxide (Magnesium Hydrox/Alum Hydrox 30 Ml Oral.Susp) 30 ml PO Q6H PRN PRN Reason: Heartburn/Nausea Clonidine HCl (Clonidine Hcl 0.1 Mg Tablet) 0.1 mg PO BID PRN; Protocol PRN Reason: severe anxiety Last Admin: 12/15/24 01:33 Dose: 0.1 mg Emtricitabine/Tenofovir Alafenamide (Emtricitabine/Tenofov Alafenam Tablet) 1 tab PO DAILY [facility] Last Admin: 12/15/24 07:53 Dose: 1 tab Finasteride (Finasteride 5 Mg Tablet) 5 mg PO DAILY [facility] Last Admin: 12/15/24 07:55 Dose: 5 mg Haloperidol (Haloperidol 5 Mg Tablet) 5 mg PO BID PRN PRN Reason: Agitation Last Admin: 12/13/24 17:36 Dose: 5 mg Hydroxyzine HCl (Hydroxyzine Hcl 25 Mg Tablet) 25 mg PO Q6H PRN PRN Reason: Anxiety Losartan Potassium (Losartan Potassium 50 Mg Tablet) 100 mg PO DAILY [facility]; Protocol Last Admin: 12/15/24 07:53 Dose: 100 mg Magnesium Hydroxide (Milk Of Magnesia 30 Ml Oral.Susp) 30 ml PO DAILY PRN PRN Reason: Constipation Last Admin: 12/12/24 22:38 Dose: 30 ml Melatonin (Melatonin 3 Mg Tablet) 6 mg PO BEDTIME [facility] Last Admin: 12/14/24 20:18 Dose: 6 mg Omeprazole (Omeprazole 20 Mg Capsule.Dr) 20 mg PO BEDTIME [facility] Last Admin: 12/14/24 20:17 Dose: 20 mg Oxcarbazepine (Oxcarbazepine 300 Mg Tablet) 300 mg PO BID [facility] Last Admin: 12/15/24 07:54 Dose: 300 mg Tamsulosin HCl (Tamsulosin Hcl 0.4 Mg Capsule) 0.8 mg PO BEDTIME [facility] Last Admin: 12/14/24 20:17 Dose: 0.8 mg Tolterodine Tartrate (Tolterodine Tartrate La 4 Mg Cap.Er.24h) 4 mg PO DAILY [facility] Last Admin: 12/15/24 07:54 Dose: 4 mg Trazodone HCl (Trazodone Hcl 50 Mg Tablet) 50 mg PO BEDTIME MRX1 PRN PRN Reason: Insomnia Valacyclovir HCl (Valacyclovir Hcl 500 Mg Tablet) 500 mg PO DAILY [facility] Last Admin: 12/15/24 07:54 Dose: 500 mg Home Medications ?Medication ?Instructions ?Recorded ?Confirmed ?Last Taken ?Type emtricitabine 200 mg-tenofovir 1 tab PO DAILY 12/05/24 12/12/24 Unknown History alafenamide fumarate 25 mg tablet (Descovy) finasteride 5 mg tablet 5 mg PO DAILY 12/05/24 12/12/24 Unknown History losartan 100 mg tablet 100 mg PO DAILY 12/05/24 12/12/24 Unknown History omeprazole 20 mg capsule,delayed 20 mg PO BEDTIME 12/05/24 12/12/24 Unknown History release tamsulosin 0.4 mg capsule 0.8 mg PO BEDTIME 12/05/24 12/12/24 Unknown History trospium 20 mg tablet 20 mg PO BID 12/05/24 12/12/24 Unknown History valacyclovir 500 mg tablet 500 mg PO DAILY 12/05/24 12/12/24 Unknown History vibegron 75 mg tablet (Gemtesa) 75 mg PO DAILY 12/05/24 12/12/24 Unknown History Physical Exam Vital Signs: Vital Signs: Last Vital Signs Temp 97.2 F 12/15/24 07:51 Pulse 59 12/15/24 07:51 Resp 20 12/15/24 07:51 BP 171/82 H 12/15/24 07:51 Pulse Ox 96 12/15/24 07:51 O2 Del Method Room Air 12/15/24 07:51 BMI result Body Mass Index 21.4 Neuro: Other: He was drowsy but able to and set up and talked to me. He said that Dr. Verdin in his brother new everything what was going on and I could asked any question to them. 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 There was no obvious focal finding. Results Labs 12/21/24 15:20 12/28/24 07:42 Assessment and Plan (1) Multifactorial dementia: Status: Acute Looking at his overall situation, it seems like that he is suffering from multifactorial (degenerative +vascular) dementia presenting with neurological (cognitive) and psychiatric symptoms. Initial abnormality seen on DWI sequence of MRI might have been cause by hypertensive encephalopathy, which can disappear after few days to weeks. Test for common or atypical infections including CJD were negative. I have added serum beta amyloid/tau ratio to see if he has amyloid or Alzheimer type pathology. CSF cytology and serum B12 and folate levels was also ordered to complete his workup. Procedures Date of Service Date of Service: 01/01/25
--- NOTE | 2024-12-15 11:54 | HO.PSYCHPN ---
Subjective Subjective Date of Service: 12/15/24 Reason For Visit: evelyn Subjective Notes: Conditional Voluntary and 3 Day Healthcare Proxy: Yes Interim History: THE PATIENT IS ANXIOUS AND RUMINATING obsessional. Difficulty making any decision. Case reviewed extensively with Neurology MRI reviewed which showed significant abnormalities this was reviewed with patient and his brother patient has difficult time taking in information. Patient did assign his brother as healthcare proxy and seems able to make this decision. The patient did retract 3 day and then submitted another. Did complete an MRI without contrast and later an MRI with contrast and an EEG will be seen by Neurology Mental Status Exam Mental Status Exam Narrative: Patient is alert and oriented patient ruminating about leaving seem to have a hard time taking in information regarding abnormalities on his MRI. Patient was willing to retract his 3 day and then submitted another 3 day seem to understand that needed time to clarify his diagnosis patient mood anxious but at times expansive speech pressured superficially bright at times inappropriate affect given that he is being told information that he may have series brain illness no hallucinations ruminating going back and forth regarding multiple issues denies SI or HI insight judgment impaired. Diagnostics Vital Signs (24Hr): Vital Signs - 24 hr 12/14/24 20:00 12/15/24 07:51 Temperature 99.3 F 97.2 F Pulse Rate 57 59 Respiratory Rate 20 Blood Pressure 166/82 H 171/82 H Pulse Oximetry 99 96 Oxygen Delivery Method Room Air Room Air BMI result Body Mass Index 21.4 Imaging Radiology Impressions: ITS Impressions Brain MRI 12/15/24 09:35 IMPRESSION: Acute nonhemorrhagic ischemia involving the right precentral gyrus and left middle frontal gyrus concerning for embolic etiology. Extensive white matter disease likely related to small vessel occlusive disease. 5 mm nodular lesion, frontal horn right lateral ventricle. Malignancy cannot be excluded. Recommend IV contrast enhanced MRI brain. Global cerebral atrophy. Electronically signed by: Vincent Pandya MD 12/15/2024 10:21 AM EDT Medications Medications Current Medications Acetaminophen (Acetaminophen 325 Mg Tablet) 650 mg PO Q6H PRN PRN Reason: Headache/Pain, Scale 1-10 Al Hydroxide/Mg Hydroxide (Magnesium Hydrox/Alum Hydrox 30 Ml Oral.Susp) 30 ml PO Q6H PRN PRN Reason: Heartburn/Nausea Clonidine HCl (Clonidine Hcl 0.1 Mg Tablet) 0.1 mg PO BID PRN; Protocol PRN Reason: severe anxiety Last Admin: 12/15/24 01:33 Dose: 0.1 mg Emtricitabine/Tenofovir Alafenamide (Emtricitabine/Tenofov Alafenam Tablet) 1 tab PO DAILY [facility] Last Admin: 12/15/24 07:53 Dose: 1 tab Finasteride (Finasteride 5 Mg Tablet) 5 mg PO DAILY [facility] Last Admin: 12/15/24 07:55 Dose: 5 mg Haloperidol (Haloperidol 5 Mg Tablet) 5 mg PO BID PRN PRN Reason: Agitation Last Admin: 12/13/24 17:36 Dose: 5 mg Hydroxyzine HCl (Hydroxyzine Hcl 25 Mg Tablet) 25 mg PO Q6H PRN PRN Reason: Anxiety Losartan Potassium (Losartan Potassium 50 Mg Tablet) 100 mg PO DAILY [facility]; Protocol Last Admin: 12/15/24 07:53 Dose: 100 mg Magnesium Hydroxide (Milk Of Magnesia 30 Ml Oral.Susp) 30 ml PO DAILY PRN PRN Reason: Constipation Last Admin: 12/12/24 22:38 Dose: 30 ml Melatonin (Melatonin 3 Mg Tablet) 6 mg PO BEDTIME [facility] Last Admin: 12/14/24 20:18 Dose: 6 mg Omeprazole (Omeprazole 20 Mg Capsule.Dr) 20 mg PO BEDTIME [facility] Last Admin: 12/14/24 20:17 Dose: 20 mg Oxcarbazepine (Oxcarbazepine 300 Mg Tablet) 300 mg PO BID [facility] Last Admin: 12/15/24 07:54 Dose: 300 mg Tamsulosin HCl (Tamsulosin Hcl 0.4 Mg Capsule) 0.8 mg PO BEDTIME [facility] Last Admin: 12/14/24 20:17 Dose: 0.8 mg Tolterodine Tartrate (Tolterodine Tartrate La 4 Mg Cap.Er.24h) 4 mg PO DAILY [facility] Last Admin: 12/15/24 07:54 Dose: 4 mg Trazodone HCl (Trazodone Hcl 50 Mg Tablet) 50 mg PO BEDTIME MRX1 PRN PRN Reason: Insomnia Valacyclovir HCl (Valacyclovir Hcl 500 Mg Tablet) 500 mg PO DAILY [facility] Last Admin: 12/15/24 07:54 Dose: 500 mg Allergies Allergies Allergy/AdvReac Type Severity Reaction Status Date / Time lactose AdvReac Intermediate Diarrhea Verified 12/13/24 05:35 Assessment & Plan Assessment & Plan (1) Encephalopathy: Qualifiers: Encephalopathy type: unspecified encephalopathy Qualified Code(s): G93.40 - Encephalopathy, unspecified Status: Acute Code(s): G93.40 - Encephalopathy, unspecified Assessment and Plan: 74 years old man with acute change in mental status with psychiatric symptoms of paranoia and agitation and confusion with forgetfulness. This seems to be a relatively recent and according to him he was fine couple of months ago. This would suggest a rapidly progressive process. Differential diagnosis would include atypical encephalitis from an atypical infection, or an inflammatory process including autoimmune condition. It would also include possibility of Crutzfeld Lobito disease. His MRI of brain did reveal subtle abnormalities suggesting any of these possibilities. I recommend sending serum test for Lyme, syphilis, HIV, and blood test for sed rate. If serum or blood tests do not provide any lead, a lumbar puncture is needed to do testing on CSF. EEG is also recommended, which in some cases can also help. Plan Continue Trileptal 300 b.i.d. hospitalist consult regarding patient's cognitive issues and hypertension which can also be contributing factors Differential diagnosis discussed with neurology patient and brother. Tests for HIV Lyme sed rate syphilis ordered. There was a question of vascular issues and also a question a small lesion question malignancy noted on the original MRI. Dr. López also felt he EEG would help eliminate CJD patient would probably benefit from SSRI but unclear why he is somewhat expansive question frontal lobe issues P. Need to clarify diagnosis and appropriate aftercare Reason for continued inpatient stay Substantial Risk for: inability to function, rapid decompensation and med/psych decompensation Time Spent With Patient Time: Total time managing care of this patient today ____ minutes.
[2024-12-15 18:44] VITALS: BP 172/98; PULSE 64; RESP 20; TEMP 36.5; O2SAT 96
[2024-12-15 19:56] VITALS: BP 194/90; PULSE 58; RESP 16; TEMP 36.9; O2SAT 97
--- NOTE | 2024-12-15 21:20 | HO.PM.IMCN ---
History of Present Illness Data of Consult Service Date: 12/15/24 Requesting physician: Ish Verdin Primary Care Provider: Unknown Physician HPI Reason for consult: ABN MRI, medical follow up Pt is a 74 yo male, unable to review PMH, PSH with pt as he states I do not want to discuss anything before I try to go to sleep as I will not sleep and I do not want any negative information . Pt explains that it is ok to speak with him after breakfast and when he has had his coffee. Nursing explained that patient was recently transferred from the [facility] unit to the [facility] after being discharged for suspected hypoxia with no underlying cause. Patient has had some changes with mentation over the last 2 months per his healthcare proxy and patient has stated that he wants to transition to female per nursing staff. Patient was recently admitted as an inpatient from 12/05/2024 to 12/12/2024 and was discharged to or [facility]. Patient originally brought into the ED for increased paranoia and agitation and was placed on a section 12. At that time patient was hypoxic with a pulse ox of 76% on room air. Patient's pulse ox on his earlobe at the time was normal. Patient's workup was negative and ABG was unremarkable. There was question whether patient had nocturnal hypoxia. Plan was to work that up as an outpatient. 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 Due to patient's overall mental status changes patient had a CT of the head in the ED and then had an MRI today for follow-up which was abnormal with a lesion noted that could indicate malignancy. Patient was seen by Neurology and they recommended blood test for Lyme, syphilis, HIV and sed rate. Sed rate is currently normal. Patient has no leukocytosis and liver enzymes are normal. UA on original admission was negative for UTI. Toxicology screen positive for marijuana only. Rheumatoid factor was elevated at 15.7. Viral testing was negative for RSV, flu and COVID. If the serum or blood tests do not provide any lead, a lumbar puncture is needed to do testing on CSF. In addition patient is recommended to have EEG testing per Neurology. Some labs are currently pending and others are send outs. Patient overall was very cooperative and pleasant but very firm on trying to get some sleep. Patient did allow this provider to do a physical exam to the point of listening to the heart and lungs, abdomen and assessing his extremities. Patient offered no specific medical complaints at this time including chest pain, shortness of breath, headache, nausea, vomiting, diarrhea or constipation. And believes he may have had a 6 lb unexplained weight loss over a period of few months. Review of Systems Review of Systems: Patient offered no specific medical complaints at this time including chest pain, shortness of breath, headache, nausea, vomiting, diarrhea or constipation. And believes he may have had a 6 lb unexplained weight loss over a period of few months. 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 If so, by whom?: No Do you feel safe in your current relationship?: No Current Relationship Is there a partner from a previous relationship who is making you feel unsafe now?: No Are you made to feel afraid or neglected: No Advance Directives: No Advance Directives Information Provided: No Do you have thoughts of harming others: None Do you have a plan to hurt others: No Plan Recently lost weight without trying: No Eating poorly because of decreased appetite: No Nutrition Risks: No Nutritional Risk Poor oral hygiene: No service: No Ebola Risk: Travel/Contact With Anyone From Affected Area/s: No Has Patient Experienced Ebola Symptoms: No Meds Allergies Allergy/AdvReac Type Severity Reaction Status Date / Time lactose AdvReac Intermediate Diarrhea Verified 12/13/24 05:35 Active Medications: Current Medications Acetaminophen (Acetaminophen 325 Mg Tablet) 650 mg PO Q6H PRN PRN Reason: Headache/Pain, Scale 1-10 Al Hydroxide/Mg Hydroxide (Magnesium Hydrox/Alum Hydrox 30 Ml Oral.Susp) 30 ml PO Q6H PRN PRN Reason: Heartburn/Nausea Clonidine HCl (Clonidine Hcl 0.1 Mg Tablet) 0.1 mg PO BID PRN; Protocol PRN Reason: severe anxiety Last Admin: 12/15/24 18:49 Dose: 0.1 mg Emtricitabine/Tenofovir Alafenamide (Emtricitabine/Tenofov Alafenam Tablet) 1 tab PO DAILY [facility] Last Admin: 12/15/24 07:53 Dose: 1 tab Finasteride (Finasteride 5 Mg Tablet) 5 mg PO DAILY [facility] Last Admin: 12/15/24 07:55 Dose: 5 mg Haloperidol (Haloperidol 5 Mg Tablet) 5 mg PO BID PRN PRN Reason: Agitation Last Admin: 12/13/24 17:36 Dose: 5 mg Hydroxyzine HCl (Hydroxyzine Hcl 25 Mg Tablet) 25 mg PO Q6H PRN PRN Reason: Anxiety Last Admin: 12/15/24 18:48 Dose: 25 mg Losartan Potassium (Losartan Potassium 50 Mg Tablet) 100 mg PO DAILY [facility]; Protocol Last Admin: 12/15/24 07:53 Dose: 100 mg Magnesium Hydroxide (Milk Of Magnesia 30 Ml Oral.Susp) 30 ml PO DAILY PRN PRN Reason: Constipation Last Admin: 12/12/24 22:38 Dose: 30 ml Melatonin (Melatonin 3 Mg Tablet) 6 mg PO BEDTIME [facility] Last Admin: 12/15/24 19:58 Dose: 6 mg Omeprazole (Omeprazole 20 Mg Capsule.Dr) 20 mg PO BEDTIME [facility] Last Admin: 12/15/24 19:58 Dose: 20 mg Oxcarbazepine (Oxcarbazepine 300 Mg Tablet) 300 mg PO BID [facility] Last Admin: 12/15/24 19:59 Dose: 300 mg Tamsulosin HCl (Tamsulosin Hcl 0.4 Mg Capsule) 0.8 mg PO BEDTIME [facility] Last Admin: 12/15/24 19:59 Dose: 0.8 mg Tolterodine Tartrate (Tolterodine Tartrate La 4 Mg Cap.Er.24h) 4 mg PO DAILY [facility] Last Admin: 12/15/24 07:54 Dose: 4 mg Trazodone HCl (Trazodone Hcl 50 Mg Tablet) 50 mg PO BEDTIME MRX1 PRN PRN Reason: Insomnia Valacyclovir HCl (Valacyclovir Hcl 500 Mg Tablet) 500 mg PO DAILY [facility] Last Admin: 12/15/24 07:54 Dose: 500 mg Home Medications ?Medication ?Instructions ?Recorded ?Confirmed ?Last Taken ?Type emtricitabine 200 mg-tenofovir 1 tab PO DAILY 12/05/24 12/12/24 Unknown History alafenamide fumarate 25 mg tablet (Descovy) finasteride 5 mg tablet 5 mg PO DAILY 12/05/24 12/12/24 Unknown History losartan 100 mg tablet 100 mg PO DAILY 12/05/24 12/12/24 Unknown History omeprazole 20 mg capsule,delayed 20 mg PO BEDTIME 12/05/24 12/12/24 Unknown History release tamsulosin 0.4 mg capsule 0.8 mg PO BEDTIME 12/05/24 12/12/24 Unknown History trospium 20 mg tablet 20 mg PO BID 12/05/24 12/12/24 Unknown History valacyclovir 500 mg tablet 500 mg PO DAILY 12/05/24 12/12/24 Unknown History vibegron 75 mg tablet (Gemtesa) 75 mg PO DAILY 12/05/24 12/12/24 Unknown History Physical Exam Vital Signs and Narrative: Vital Signs: Last Vital Signs Temp 98.5 F 12/15/24 19:56 Pulse 58 12/15/24 19:56 Resp 16 12/15/24 19:56 BP 194/90 H 12/15/24 19:56 Pulse Ox 97 12/15/24 19:56 O2 Del Method Room Air 12/15/24 19:56 BMI result Body Mass Index 21.4 Alert and orientated X1, unable to give good history. Neuro: CN II-X11 intact, no deficits, visual acuity intact EYES: PERRLA, EOM intact, sclerae nonicteric, conjunctiva pink, glasses on ENT: hearing intact, no issues with swallowing, uvula midline, lips moist, nares patent no epistaxis Cardiac: S1 S2 RRR, bradycardic 56, no murmur, no JVD, no edema in Lower ext Pulmonary: lungs clear to ausculation B Abdominal: BS active in all 4 quadrants, no guarding, tenderness, rebounding MSK: strength 4/5 upper and lower extremities, kyphosis : no CVA tenderness no bladder distension Extremities: no edema in lower extremities, PT and DP pulses palpable +2 Psych: mood stable, judgement and insight poor Skin: no new rashes or lesions Results Labs Labs: Laboratory Results - last 24 hr 12/15/24 12:23 ESR 10 Rheumatoid Factor 15.7 H Imaging Radiologist's Impressions: Impressions Brain MRI 12/15/24 09:35 IMPRESSION: Acute nonhemorrhagic ischemia involving the right precentral gyrus and left middle frontal gyrus concerning for embolic etiology. Extensive white matter disease likely related to small vessel occlusive disease. 5 mm nodular lesion, frontal horn right lateral ventricle. Malignancy cannot be excluded. Recommend IV contrast enhanced MRI brain. Global cerebral atrophy. Electronically signed by: Vincent Pandya MD 12/15/2024 10:21 AM EDT RP Assessment and Plan (1) Hypertension: Qualifiers: Hypertension type: primary hypertension Qualified Code(s): I10 - Essential (primary) hypertension Status: Acute (2) Encephalopathy: Qualifiers: Encephalopathy type: unspecified encephalopathy Qualified Code(s): G93.40 - Encephalopathy, unspecified Status: Acute Plan Pt is a 74 yo male, unable to review PMH, PSH with pt as he states I do not want to discuss anything before I try to go to sleep as I will not sleep and I do not want any negative information . Pt explains that it is ok to speak with him after breakfast and when he has had his coffee. Nursing explained that patient was recently transferred from the [facility] to the [facility] after being discharged for suspected hypoxia with no underlying cause. Patient has had some changes with mentation over the last 2 months per his healthcare proxy and patient has stated that he wants to transition to female per nursing staff. Patient was recently admitted as an inpatient from 12/05/2024 to 12/12/2024 and was discharged to or [facility]. Patient originally brought into the ED for increased paranoia and agitation and was placed on a section 12. At that time patient was hypoxic with a pulse ox of 76% on room air. Patient's pulse ox on his earlobe at the time was normal. Patient's workup was negative and ABG was unremarkable. There was question whether patient had nocturnal hypoxia. Plan was to work that up as an outpatient. 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 Currently addressing pt's following medical problems: HTN Pt already on Losartan 100 mg daily Noted bradycardia Adding amlodpine 5 mg kenney, first dose tonight - pt currently asymptomatic Low Salt diet Avoid AV reji blockers including propranolol Encephalopathy with abnormal MRI Follow recommendations from Neurology Ordered IR for Lumbar Puncture for Wednesday with labs EEG testing per Neurology ESR normal Repeat UA HIV, RPR, Lyme testing all pending Bradycardia with normal AL interval ECG ordered for review in AM Pt is not on any AV reji blockers TSH and MG stable BPH Continue finasteride and tamsulosin HIV Continue dESCOY HIV testing pending GERD Omeprazole Avoid food triggers HSV Valacyclovir Hospitalist group will continue to monitor patient in the interim while undergoing workup for abnormal MRI. In addition we will monitor patient's blood pressure and provide further recommendations as needed.
[2024-12-15 22:46] VITALS: BP 194/90
[2024-12-15 23:27] LABS: Appearance Urine Clear; Glucose Urine UA Negative (Negative); PH 7.0 (5.0-9.0); Specific Gravity - Urine 1.010 (1.005-1.025); UMIC TRIGGER UA YES
--- NOTE | 2024-12-16 07:49 | HO.PSYCHPN ---
Subjective Subjective Date of Service: 12/16/24 Reason For Visit: evelyn Subjective Notes: Conditional Voluntary Interim History: in the milieu. Very perseverative on diet I am in dire need for more breakfast . Clearly anxious. Needs lots of reassurance I know I am needy . sleep okay. Noted lumbar puncture Wednesday. Medication Compliance: Yes Side effects from medications: No Attending Groups: Yes Review of Systems Acute medical concerns: No Review of Systems Review of Systems nothing acute Mental Status Exam Mental Status Exam Narrative: Patient is alert and oriented patient ruminating about diet and menu. Remains anxious but at times expansive speech pressured . Feels safe. No overt paranoia. No hallucinations. Denies SI or HI. Insight and judgment does appear impaired Diagnostics Vital Signs (24Hr): Vital Signs - 24 hr 12/15/24 07:51 12/15/24 18:44 12/15/24 19:56 Temperature 97.2 F 97.7 F 98.5 F Pulse Rate 59 64 58 Respiratory Rate 20 20 16 Blood Pressure 171/82 H 172/98 H 194/90 H Pulse Oximetry 96 96 97 Oxygen Delivery Method Room Air Room Air Room Air 12/15/24 22:46 Temperature Pulse Rate Respiratory Rate Blood Pressure 194/90 H Pulse Oximetry Oxygen Delivery Method BMI result Body Mass Index 21.4 Labs Labs: Laboratory Results - last 48 hr 12/15/24 12/15/24 12:23 23:13 ESR 10 Urine Color Yellow Urine Appearance Clear Urine pH 7.0 Ur Specific [place] 1.010 Urine Protein Negative Urine Glucose (UA) Negative Urine Ketones Negative Urine Blood Negative Urine Nitrite Negative Ur Leukocyte Esterase Trace H Urine RBC 0-2 Urine WBC 0-5 Ur Squamous Epith Cells 0-2 Urine Bacteria None Seen Hyaline Casts 0-2 Rheumatoid Factor 15.7 H Imaging Radiology Impressions: ITS Impressions Brain MRI 12/15/24 09:35 IMPRESSION: Acute nonhemorrhagic ischemia involving the right precentral gyrus and left middle frontal gyrus concerning for embolic etiology. Extensive white matter disease likely related to small vessel occlusive disease. 5 mm nodular lesion, frontal horn right lateral ventricle. Malignancy cannot be excluded. Recommend IV contrast enhanced MRI brain. Global cerebral atrophy. Electronically signed by: Vincent Pandya MD 12/15/2024 10:21 AM EDT Medications Medications Current Medications Acetaminophen (Acetaminophen 325 Mg Tablet) 650 mg PO Q6H PRN PRN Reason: Headache/Pain, Scale 1-10 Al Hydroxide/Mg Hydroxide (Magnesium Hydrox/Alum Hydrox 30 Ml Oral.Susp) 30 ml PO Q6H PRN PRN Reason: Heartburn/Nausea Amlodipine Besylate (Amlodipine Besylate 5 Mg Tablet) 5 mg PO DAILY [facility]; Protocol Clonidine HCl (Clonidine Hcl 0.1 Mg Tablet) 0.1 mg PO BID PRN; Protocol PRN Reason: severe anxiety Last Admin: 12/15/24 18:49 Dose: 0.1 mg Emtricitabine/Tenofovir Alafenamide (Emtricitabine/Tenofov Alafenam Tablet) 1 tab PO DAILY [facility] Last Admin: 12/15/24 07:53 Dose: 1 tab Finasteride (Finasteride 5 Mg Tablet) 5 mg PO DAILY [facility] Last Admin: 12/15/24 07:55 Dose: 5 mg Haloperidol (Haloperidol 5 Mg Tablet) 5 mg PO BID PRN PRN Reason: Agitation Last Admin: 12/13/24 17:36 Dose: 5 mg Hydroxyzine HCl (Hydroxyzine Hcl 25 Mg Tablet) 25 mg PO Q6H PRN PRN Reason: Anxiety Last Admin: 12/15/24 23:27 Dose: 25 mg Losartan Potassium (Losartan Potassium 50 Mg Tablet) 100 mg PO DAILY [facility]; Protocol Last Admin: 12/15/24 07:53 Dose: 100 mg Magnesium Hydroxide (Milk Of Magnesia 30 Ml Oral.Susp) 30 ml PO DAILY PRN PRN Reason: Constipation Last Admin: 12/12/24 22:38 Dose: 30 ml Melatonin (Melatonin 3 Mg Tablet) 6 mg PO BEDTIME [facility] Last Admin: 12/15/24 19:58 Dose: 6 mg Omeprazole (Omeprazole 20 Mg Capsule.Dr) 20 mg PO BEDTIME [facility] Last Admin: 12/15/24 19:58 Dose: 20 mg Oxcarbazepine (Oxcarbazepine 300 Mg Tablet) 300 mg PO BID [facility] Last Admin: 12/15/24 19:59 Dose: 300 mg Oxcarbazepine (Oxcarbazepine 150 Mg Tablet) 150 mg PO TID PRN PRN Reason: Anxiety Tamsulosin HCl (Tamsulosin Hcl 0.4 Mg Capsule) 0.8 mg PO BEDTIME [facility] Last Admin: 12/15/24 19:59 Dose: 0.8 mg Tolterodine Tartrate (Tolterodine Tartrate La 4 Mg Cap.Er.24h) 4 mg PO DAILY [facility] Last Admin: 12/15/24 07:54 Dose: 4 mg Trazodone HCl (Trazodone Hcl 50 Mg Tablet) 50 mg PO BEDTIME MRX1 PRN PRN Reason: Insomnia Valacyclovir HCl (Valacyclovir Hcl 500 Mg Tablet) 500 mg PO DAILY [facility] Last Admin: 12/15/24 07:54 Dose: 500 mg Allergies Allergies Allergy/AdvReac Type Severity Reaction Status Date / Time lactose AdvReac Intermediate Diarrhea Verified 12/13/24 05:35 Assessment & Plan Assessment & Plan (1) Hypertension: Qualifiers: Hypertension type: primary hypertension Qualified Code(s): I10 - Essential (primary) hypertension Status: Acute Code(s): I10 - Essential (primary) hypertension (2) Encephalopathy: Qualifiers: Encephalopathy type: unspecified encephalopathy Qualified Code(s): G93.40 - Encephalopathy, unspecified Status: Acute Code(s): G93.40 - Encephalopathy, unspecified Plan Pt is a 74 yo male, unable to review PMH, PSH with pt as he states I do not want to discuss anything before I try to go to sleep as I will not sleep and I do not want any negative information . Pt explains that it is ok to speak with him after breakfast and when he has had his coffee. Nursing explained that patient was recently transferred from the [facility] unit to the [facility] after being discharged for suspected hypoxia with no underlying cause. Patient has had some changes with mentation over the last 2 months per his healthcare proxy and patient has stated that he wants to transition to female per nursing staff. Patient was recently admitted as an inpatient from 12/05/2024 to 12/12/2024 and was discharged to or [facility]. Patient originally brought into the ED for increased paranoia and agitation and was placed on a section 12. At that time patient was hypoxic with a pulse ox of 76% on room air. Patient's pulse ox on his earlobe at the time was normal. Patient's workup was negative and ABG was unremarkable. There was question whether patient had nocturnal hypoxia. Plan was to work that up as an outpatient. 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 Currently addressing pt's following medical problems: HTN Pt already on Losartan 100 mg daily Noted bradycardia Adding amlodpine 5 mg kenney, first dose tonight - pt currently asymptomatic Low Salt diet Avoid AV reji blockers including propranolol Encephalopathy with abnormal MRI Follow recommendations from Neurology Ordered IR for Lumbar Puncture for Wednesday with labs EEG testing per Neurology ESR normal Repeat UA HIV, RPR, Lyme testing all pending Bradycardia with normal [place] interval ECG ordered for review in AM Pt is not on any AV reji blockers TSH and MG stable BPH Continue finasteride and tamsulosin HIV Continue dESCOY HIV testing pending GERD Omeprazole Avoid food triggers HSV Valacyclovir Hospitalist group will continue to monitor patient in the interim while undergoing workup for abnormal MRI. In addition we will monitor patient's blood pressure and provide further recommendations as needed. : No med changes. Noted LP scheduled for Wednesday. Did modify allergies to remove lactose intolerance-pt adamant he has no issues regarding lactose Reason for continued inpatient stay Substantial Risk for: inability to function Time Spent With Patient Time: Total time managing care of this patient today ____ minutes.
--- NOTE | 2024-12-16 08:00 | ECG_ITS ---
Test Reason : bradycardic Blood Pressure : */* mmHG Vent. Rate : 59 BPM Atrial Rate : 59 BPM P-R Int : 226 ms QRS Dur : 100 ms QT Int : 424 ms P-R-T Axes : 41 -34 -64 degrees QTcB Int : 419 ms Sinus bradycardia with 1st degree A-V block Left axis deviation Incomplete right bundle branch block Nonspecific ST and T wave abnormality Abnormal ECG When compared with ECG of 06-Dec-2024 02:06, Nonspecific T wave abnormality has replaced inverted T waves in Lateral leads Referred By: Reyna Varela Electronically Signed By: DINORA SOTELO
[2024-12-16 08:22] LABS: Syphilis Screen Nonreactive (Nonreactive)
[2024-12-16 08:50] LABS: HIV Num 1 0.21 S/CO (0.00-0.99)
[2024-12-16 09:12] VITALS: BP 165/84; PULSE 63; RESP 20; TEMP 2.9; TEMP 37.2; O2SAT 98
[2024-12-16] MEDS: Emtricitabine/Tenofov Alafenam TABLET 1 TAB PO (09:17)
[2024-12-16 19:47] VITALS: BP 181/95; PULSE 70; RESP 17; TEMP 36.8; O2SAT 97
--- NOTE | 2024-12-16 20:51 | PC.NURSE ---
EKG completed/patient compliant
[2024-12-16 21:05] VITALS: BP 181/95
--- NOTE | 2024-12-17 03:30 | PM.EVENT ---
Event Note Date of Service: 12/17/24 Event Note: Blood pressure checked and still remains elevated on Amlodipine 5. Increased dose to max strength of 10 mgs daily for AM. Time Spent With Patient Time: Total time managing care of this patient today ____ minutes.
[2024-12-17 09:02] VITALS: TEMP 36.9
[2024-12-17] MEDS: Emtricitabine/Tenofov Alafenam TABLET 1 TAB PO (09:40)
--- NOTE | 2024-12-17 10:24 | HO.PSYCHPN ---
Subjective Subjective Date of Service: 12/17/24 Reason For Visit: evelyn Interim History: In the milieu. Visitor today I need family and friends the most , I will do whatever you tell me . Anxious and needs lots of reassurance. Sleep okay. Noted lumbar puncture tomorrow. Medication Compliance: Yes Side effects from medications: No Attending Groups: Yes Review of Systems Review of Systems nothing acute Mental Status Exam Mental Status Exam Narrative: Patient is alert and oriented patient ruminating about hospital admission and next steps. Remains anxious but at times expansive speech pressured . Feels safe. No overt paranoia. No hallucinations. Denies SI or HI. Insight and judgment does appear impaired Diagnostics Vital Signs (24Hr): Vital Signs - 24 hr 12/16/24 19:47 12/16/24 21:05 12/17/24 09:02 Temperature 98.2 F 98.4 F Pulse Rate 70 Respiratory Rate 17 Blood Pressure 181/95 H 181/95 H Pulse Oximetry 97 Oxygen Delivery Method Nasal Cannula Room Air BMI result Body Mass Index 21.4 Labs Labs: Laboratory Results - last 48 hr 12/15/24 12/15/24 12:23 23:13 ESR 10 Urine Color Yellow Urine Appearance Clear Urine pH 7.0 Ur Specific [place] 1.010 Urine Protein Negative Urine Glucose (UA) Negative Urine Ketones Negative Urine Blood Negative Urine Nitrite Negative Ur Leukocyte Esterase Trace H Urine RBC 0-2 Urine WBC 0-5 Ur Squamous Epith Cells 0-2 Urine Bacteria None Seen Hyaline Casts 0-2 Rheumatoid Factor 15.7 H T.pallidum Ab (EIA) Nonreactive HIV 1&2 Ab/P24 Ag 4thGn Nonreactive Imaging Radiology Impressions: ITS Impressions Brain MRI 12/15/24 09:35 IMPRESSION: Acute nonhemorrhagic ischemia involving the right precentral gyrus and left middle frontal gyrus concerning for embolic etiology. Extensive white matter disease likely related to small vessel occlusive disease. 5 mm nodular lesion, frontal horn right lateral ventricle. Malignancy cannot be excluded. Recommend IV contrast enhanced MRI brain. Global cerebral atrophy. Electronically signed by: Vincent Pandya MD 12/15/2024 10:21 AM EDT Medications Medications Current Medications Acetaminophen (Acetaminophen 325 Mg Tablet) 650 mg PO Q6H PRN PRN Reason: Headache/Pain, Scale 1-10 Al Hydroxide/Mg Hydroxide (Magnesium Hydrox/Alum Hydrox 30 Ml Oral.Susp) 30 ml PO Q6H PRN PRN Reason: Heartburn/Nausea Amlodipine Besylate (Amlodipine Besylate 10 Mg Tablet) 10 mg PO DAILY [facility]; Protocol Last Admin: 12/17/24 09:39 Dose: 10 mg Clonidine HCl (Clonidine Hcl 0.1 Mg Tablet) 0.1 mg PO BID PRN; Protocol PRN Reason: severe anxiety Last Admin: 12/16/24 21:05 Dose: 0.1 mg Emtricitabine/Tenofovir Alafenamide (Emtricitabine/Tenofov Alafenam Tablet) 1 tab PO DAILY [facility] Last Admin: 12/17/24 09:40 Dose: 1 tab Finasteride (Finasteride 5 Mg Tablet) 5 mg PO DAILY [facility] Last Admin: 12/17/24 09:40 Dose: 5 mg Haloperidol (Haloperidol 5 Mg Tablet) 5 mg PO BID PRN PRN Reason: Agitation Last Admin: 12/13/24 17:36 Dose: 5 mg Hydroxyzine HCl (Hydroxyzine Hcl 25 Mg Tablet) 25 mg PO Q6H PRN PRN Reason: Anxiety Last Admin: 12/16/24 21:05 Dose: 25 mg Losartan Potassium (Losartan Potassium 50 Mg Tablet) 100 mg PO DAILY [facility]; Protocol Last Admin: 12/17/24 09:40 Dose: 100 mg Magnesium Hydroxide (Milk Of Magnesia 30 Ml Oral.Susp) 30 ml PO DAILY PRN PRN Reason: Constipation Last Admin: 12/12/24 22:38 Dose: 30 ml Melatonin (Melatonin 3 Mg Tablet) 6 mg PO BEDTIME [facility] Last Admin: 12/16/24 19:51 Dose: 6 mg Omeprazole (Omeprazole 20 Mg Capsule.Dr) 20 mg PO BEDTIME [facility] Last Admin: 12/16/24 19:51 Dose: 20 mg Oxcarbazepine (Oxcarbazepine 300 Mg Tablet) 300 mg PO BID [facility] Last Admin: 12/17/24 09:39 Dose: 300 mg Oxcarbazepine (Oxcarbazepine 150 Mg Tablet) 150 mg PO TID PRN PRN Reason: Anxiety Tamsulosin HCl (Tamsulosin Hcl 0.4 Mg Capsule) 0.8 mg PO BEDTIME [facility] Last Admin: 12/16/24 19:52 Dose: 0.8 mg Tolterodine Tartrate (Tolterodine Tartrate La 4 Mg Cap.Er.24h) 4 mg PO DAILY [facility] Last Admin: 12/17/24 09:39 Dose: 4 mg Trazodone HCl (Trazodone Hcl 50 Mg Tablet) 50 mg PO BEDTIME MRX1 PRN PRN Reason: Insomnia Valacyclovir HCl (Valacyclovir Hcl 500 Mg Tablet) 500 mg PO DAILY [facility] Last Admin: 12/17/24 09:39 Dose: 500 mg Allergies Allergies Allergy/AdvReac Type Severity Reaction Status Date / Time No Known Allergies Allergy Verified 12/16/24 19:54 Assessment & Plan Assessment & Plan (1) Hypertension: Qualifiers: Hypertension type: primary hypertension Qualified Code(s): I10 - Essential (primary) hypertension Status: Acute Code(s): I10 - Essential (primary) hypertension (2) Encephalopathy: Qualifiers: Encephalopathy type: unspecified encephalopathy Qualified Code(s): G93.40 - Encephalopathy, unspecified Status: Acute Code(s): G93.40 - Encephalopathy, unspecified Plan Pt is a 74 yo male, unable to review PMH, PSH with pt as he states I do not want to discuss anything before I try to go to sleep as I will not sleep and I do not want any negative information . Pt explains that it is ok to speak with him after breakfast and when he has had his coffee. Nursing explained that patient was recently transferred from the [facility] unit to the [facility] after being discharged for suspected hypoxia with no underlying cause. Patient has had some changes with mentation over the last 2 months per his healthcare proxy and patient has stated that he wants to transition to female per nursing staff. Patient was recently admitted as an inpatient from 12/05/2024 to 12/12/2024 and was discharged to or [facility]. Patient originally brought into the ED for increased paranoia and agitation and was placed on a section 12. At that time patient was hypoxic with a pulse ox of 76% on room air. Patient's pulse ox on his earlobe at the time was normal. Patient's workup was negative and ABG was unremarkable. There was question whether patient had nocturnal hypoxia. Plan was to work that up as an outpatient. 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 Currently addressing pt's following medical problems: HTN Pt already on Losartan 100 mg daily Noted bradycardia Adding amlodpine 5 mg kenney, first dose tonight - pt currently asymptomatic Low Salt diet Avoid AV reji blockers including propranolol Encephalopathy with abnormal MRI Follow recommendations from Neurology Ordered IR for Lumbar Puncture for Wednesday with labs EEG testing per Neurology ESR normal Repeat UA HIV, RPR, Lyme testing all pending Bradycardia with normal [place] interval ECG ordered for review in AM Pt is not on any AV reji blockers TSH and MG stable BPH Continue finasteride and tamsulosin HIV Continue dESCOY HIV testing pending GERD Omeprazole Avoid food triggers HSV Valacyclovir Hospitalist group will continue to monitor patient in the interim while undergoing workup for abnormal MRI. In addition we will monitor patient's blood pressure and provide further recommendations as needed. : No med changes. Noted LP scheduled for Wednesday. Did modify allergies to remove lactose intolerance-pt adamant he has no issues regarding lactose, but also requested lactaid tabs when he has dairy. Reason for continued inpatient stay Substantial Risk for: inability to function Time Spent With Patient Time: Total time managing care of this patient today ____ minutes.
[2024-12-17 20:00] VITALS: BP 160/80; PULSE 60; RESP 16; TEMP 37.1; O2SAT 97
[2024-12-18 08:50] VITALS: BP 168/82; PULSE 67; RESP 18; TEMP 37.1; O2SAT 94
[2024-12-18] MEDS: Emtricitabine/Tenofov Alafenam TABLET 1 TAB PO (08:54)
[2024-12-18 11:08] LABS: Anti Nuclear Antibody Screen NEGATIVE (NEGATIVE)
--- NOTE | 2024-12-18 12:21 | MHC.CLN ---
F/U DIET CHANGED BY PROVIDER TO CARDIAC, 2 GRAM SODIUM WITH ENSURE CLEAR TID. CARDIAC DIET INCLUDES 2 GRAM SODIUM DIET CORRECTED TO CARDIAC. ENSURE CLEAR TID PROVIDES 720 KCALS, 24 G PROTEIN. PO INTAKE APPEARS TO BE GOOD.
[2024-12-18] MEDS: Milk of Magnesia 30 ML ORAL.SUSP PO (15:03)
--- NOTE | 2024-12-18 16:30 | P.PNPSI_ITS ---
Subjective Subjective Date of Service: 12/18/24 Reason For Visit: inpt,evelyn Subjective Notes: Conditional Voluntary and 3 Day Interim History: Patient seen psychiatric follow-up call placed to patient's brother who he is now listed as his 1st healthcare proxy not currently invoked. Case reviewed with Dr. López. Patient was pending results of blood work prior to getting lumbar puncture with Dr. López feeling need to rule out C ZIGGY given images on MRI. Patient energetic with pressured speech difficulty taking in information at times odd affect as far as being told he has urologic concerns but seems often giddy and expansive Medication Compliance: Yes Attending Groups: Yes Review of Systems Acute medical concerns: Yes Abnormal findings on brain MRI Mental Status Exam Mental Status Exam Narrative: Patient is alert and oriented patient ruminating about hospital admission and next steps in wanting to go home. Remains anxious but at times expansive speech pressured still focused on Ativan being the cause of his difficulties despite discussion of abnormalities on his MRI Feels safe. No overt paranoia. No hallucinations. Denies SI or HI. Insight and judgment does appear impaired has significant difficulty regarding decision-making becomes a obsessional perseverative and circumstantial. States he has a support system at home that can help take care of him Diagnostics Vital Signs (24Hr): Vital Signs - 24 hr 12/17/24 20:00 12/18/24 08:50 Temperature 98.8 F 98.8 F Pulse Rate 60 67 Respiratory Rate 16 18 Blood Pressure 160/80 H 168/82 H Pulse Oximetry 97 94 Oxygen Delivery Method Room Air Room Air BMI result Body Mass Index 21.4 Labs 12/19/24 10:38 Labs: Laboratory Results - last 48 hr 12/15/24 12:23 FRANCISCO Screen NEGATIVE FRANCISCO Titer TNP FRANCISCO Titer 2 TNP FRANCISCO Titer 3 TNP FRANCISCO Pattern TNP FRANCISCO Pattern 2 TNP FRANCISCO Pattern 3 TNP Imaging Radiology Impressions: ITS Impressions Brain MRI 12/15/24 09:35 IMPRESSION: Acute nonhemorrhagic ischemia involving the right precentral gyrus and left middle frontal gyrus concerning for embolic etiology. Extensive white matter disease likely related to small vessel occlusive disease. 5 mm nodular lesion, frontal horn right lateral ventricle. Malignancy cannot be excluded. Recommend IV contrast enhanced MRI brain. Global cerebral atrophy. Electronically signed by: Vincent Pandya MD 12/15/2024 10:21 AM EDT RP Medications Medications Current Medications Acetaminophen (Acetaminophen 325 Mg Tablet) 650 mg PO Q6H PRN PRN Reason: Headache/Pain, Scale 1-10 Al Hydroxide/Mg Hydroxide (Magnesium Hydrox/Alum Hydrox 30 Ml Oral.Susp) 30 ml PO Q6H PRN PRN Reason: Heartburn/Nausea Amlodipine Besylate (Amlodipine Besylate 10 Mg Tablet) 10 mg PO DAILY OTIL[facility]; Protocol Last Admin: 12/18/24 08:54 Dose: 10 mg Clonidine HCl (Clonidine Hcl 0.1 Mg Tablet) 0.1 mg PO BID PRN; Protocol PRN Reason: severe anxiety Last Admin: 12/16/24 21:05 Dose: 0.1 mg Emtricitabine/Tenofovir Alafenamide (Emtricitabine/Tenofov Alafenam Tablet) 1 tab PO DAILY OT[facility] Last Admin: 12/18/24 08:54 Dose: 1 tab Finasteride (Finasteride 5 Mg Tablet) 5 mg PO DAILY [facility] Last Admin: 12/18/24 08:53 Dose: 5 mg Haloperidol (Haloperidol 5 Mg Tablet) 5 mg PO BID PRN PRN Reason: Agitation Last Admin: 12/13/24 17:36 Dose: 5 mg Hydroxyzine HCl (Hydroxyzine Hcl 25 Mg Tablet) 25 mg PO Q6H PRN PRN Reason: Anxiety Last Admin: 12/17/24 20:48 Dose: 25 mg Lactase (Lactase Tablet) 1 tab PO Q4H PRN PRN Reason: with dairy Losartan Potassium (Losartan Potassium 50 Mg Tablet) 100 mg PO DAILY OTILIA; Protocol Last Admin: 12/18/24 08:54 Dose: 100 mg Magnesium Hydroxide (Milk Of Magnesia 30 Ml Oral.Susp) 30 ml PO DAILY PRN PRN Reason: Constipation Last Admin: 12/18/24 15:03 Dose: 30 ml Melatonin (Melatonin 3 Mg Tablet) 6 mg PO BEDTIME OT[facility] Last Admin: 12/17/24 20:42 Dose: 6 mg Omeprazole (Omeprazole 20 Mg Capsule.Dr) 20 mg PO BEDTIME OT[facility] Last Admin: 12/17/24 20:44 Dose: 20 mg Oxcarbazepine (Oxcarbazepine 300 Mg Tablet) 300 mg PO BID OTILIA Last Admin: 12/18/24 08:53 Dose: 300 mg Oxcarbazepine (Oxcarbazepine 150 Mg Tablet) 150 mg PO TID PRN PRN Reason: Anxiety Tamsulosin HCl (Tamsulosin Hcl 0.4 Mg Capsule) 0.8 mg PO BEDTIME [facility] Last Admin: 12/17/24 20:41 Dose: 0.8 mg Tolterodine Tartrate (Tolterodine Tartrate La 4 Mg Cap.Er.24h) 4 mg PO DAILY [facility] Last Admin: 12/18/24 08:53 Dose: 4 mg Trazodone HCl (Trazodone Hcl 50 Mg Tablet) 50 mg PO BEDTIME MRX1 PRN PRN Reason: Insomnia Valacyclovir HCl (Valacyclovir Hcl 500 Mg Tablet) 500 mg PO DAILY [facility] Last Admin: 12/18/24 08:55 Dose: 500 mg Allergies Allergies Allergy/AdvReac Type Severity Reaction Status Date / Time No Known Allergies Allergy Verified 12/16/24 19:54 Assessment & Plan Assessment & Plan (1) Encephalopathy: Qualifiers: Encephalopathy type: unspecified encephalopathy Qualified Code(s): G 93.40 - Encephalopathy, unspecified Status: Acute Code(s): G93.40 - Encephalopathy, unspecified (2) Hypertension: Qualifiers: Hypertension type: primary hypertension Qualified Code(s): I10 - Essential (primary) hypertension Status: Acute Code(s): I10 - Essential (primary) hypertension (3) Manic behavior: Status: Acute Code(s): F30.10 - Manic episode without psychotic symptoms, unspecified (4) OCD (obsessive compulsive disorder): Status: Acute Code(s): F42.9 - Obsessive-compulsive disorder, unspecified Plan Pt is a 74 yo male, unable to review PMH, PSH with pt as he states I do not want to discuss anything before I try to go to sleep as I will not sleep and I do not want any negative information . Pt explains that it is ok to speak with him after breakfast and when he has had his coffee. Nursing explained that patient was recently transferred from the [facility] to the [facility] after being discharged for suspected hypoxia with no underlying cause. Patient has had some changes with mentation over the last 2 months per his healthcare proxy and patient has stated that he wants to transition to female per nursing staff. Patient was recently admitted as an inpatient from 12/05/2024 to 12/12/2024 and was discharged to [facility]. Patient originally brought into the ED for increased paranoia and agitation and was placed on a section 12. At that time patient was hypoxic with a pulse ox of 76% on room air. Patient's pulse ox on his earlobe at the time was normal. Patient's workup was negative and ABG was unremarkable. There was question whether patient had nocturnal hypoxia. Plan was to work that up as an outpatient. 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 Currently addressing pt's following medical problems: HTN Pt already on Losartan 100 mg daily Noted bradycardia Adding amlodpine 5 mg kenney, first dose tonight - pt currently asymptomatic Low Salt diet Avoid AV reji blockers including propranolol Encephalopathy with abnormal MRI Follow recommendations from Neurology Ordered IR for Lumbar Puncture for Wednesday with labs EEG testing per Neurology ESR normal Repeat UA HIV, RPR, Lyme testing all pending Bradycardia with normal [place] interval ECG ordered for review in AM Pt is not on any AV reji blockers TSH and MG stable BPH Continue finasteride and tamsulosin HIV Continue dESCOY HIV testing pending GERD Omeprazole Avoid food triggers HSV Valacyclovir Hospitalist group will continue to monitor patient in the interim while undergoing workup for abnormal MRI. In addition we will monitor patient's blood pressure and provide further recommendations as needed. : No med changes. Noted LP scheduled for Wednesday. Did modify allergies to remove lactose intolerance-pt adamant he has no issues regarding lactose, but also requested lactaid tabs when he has dairy. Reason for continued inpatient stay Substantial Risk for: inability to function, rapid decompensation and med/psych decompensation Time Spent With Patient Time: Total time managing care of this patient today ____ minutes.
[2024-12-18 20:00] VITALS: BP 178/93; PULSE 77; TEMP 37.1; O2SAT 98
[2024-12-18 20:33] VITALS: BP 178/93
[2024-12-18 21:54] LABS: Lyme Abs Screen <0.90 index
[2024-12-19 08:28] VITALS: BP 163/74; PULSE 65; RESP 18; TEMP 35.8; O2SAT 97
[2024-12-19] MEDS: Emtricitabine/Tenofov Alafenam TABLET 1 TAB PO (08:30)
[2024-12-19 10:13] VITALS: BP 122/78; PULSE 67; RESP 17; TEMP 37.1; O2SAT 96
[2024-12-19 10:45] LABS: Platelet Count 179 X10*3/uL (160-400)
[2024-12-19 10:52] LABS: INTERNATIONAL NORM RATIO 1.0 (0.9-1.1); Prothrombin Time 11.9 SEC (10.9-12.4)
[2024-12-19 11:49] VITALS: BP 136/76; PULSE 58; RESP 16; TEMP 36.6; O2SAT 98
[2024-12-19 12:19] VITALS: BP 134/76; PULSE 59; RESP 16; TEMP 36.8; O2SAT 98
[2024-12-19 12:43] VITALS: BP 133/78; PULSE 61; RESP 16; TEMP 36.6; O2SAT 96
--- NOTE | 2024-12-19 13:05 | HO.PSYCHPN ---
Subjective Subjective Date of Service: 12/19/24 Reason For Visit: inpt,evelyn Subjective Notes: Conditional Voluntary and 3 Day Healthcare Proxy: Yes Interim History: Patient seen psychiatric follow-up case reviewed with patient's brother his healthcare proxy and case reviewed with Dr. López neurology who has ordered lumbar puncture which was performed check for CJD and when those results return further spinal fluid can be then tested for infectious inflammatory or other etiologies. Patient has been cooperative but of pressured constantly speaking Healthcare proxy was invoked 3 day remains in effect for tomorrow Medication Compliance: Intermittent Attending Groups: Intermittent Mental Status Exam Mental Status Exam Narrative: Patient is alert dressed in a robe ambulating without difficulty. Patient with pressured speech obsessional repeating himself. Patient with more insight knows that he is not himself and not acting properly. Can not stop talking but then asking this residential mortgage underwriter to go away stating he can not deal with anything. Difficulty taking in any information or or wanting to participate in a decision-making. Discussed with patient location of healthcare proxy his ability to listen taken information level of anxiety seem somewhat worse. Patient did have an LP earlier in the day stating I do not want to hear anything no active SI her HI Diagnostics Vital Signs (24Hr): Vital Signs - 24 hr 12/18/24 20:00 12/18/24 20:33 12/19/24 08:28 Temperature 98.8 F 96.4 F L Pulse Rate 77 65 Respiratory Rate 18 Blood Pressure 178/93 H 178/93 H 163/74 H Pulse Oximetry 98 97 Oxygen Delivery Method Room Air Room Air 12/19/24 10:13 12/19/24 11:49 12/19/24 12:19 Temperature 98.7 F 97.9 F 98.2 F Pulse Rate 67 58 59 Respiratory Rate 17 16 16 Blood Pressure 122/78 136/76 134/76 Pulse Oximetry 96 98 98 Oxygen Delivery Method Room Air Room Air Room Air 12/19/24 12:43 Temperature 97.8 F Pulse Rate 61 Respiratory Rate 16 Blood Pressure 133/78 Pulse Oximetry 96 Oxygen Delivery Method Room Air BMI result Body Mass Index 21.4 Labs 12/19/24 10:38 Labs: Laboratory Results - last 48 hr 12/15/24 12/19/24 12:23 10:38 Plt Count 179 PT 11.9 INR 1.0 FRANCISCO Screen NEGATIVE FRANCISCO Titer TNP FRANCISCO Titer 2 TNP FRANCISCO Titer 3 TNP FRANCISCO Pattern TNP FRANCISCO Pattern 2 TNP FRANCISCO Pattern 3 TNP Lyme Screen IgG & IgM <0.90 Lyme Progressive Test TNP Imaging Radiology Impressions: ITS Impressions Brain MRI 12/15/24 09:35 IMPRESSION: Acute nonhemorrhagic ischemia involving the right precentral gyrus and left middle frontal gyrus concerning for embolic etiology. Extensive white matter disease likely related to small vessel occlusive disease. 5 mm nodular lesion, frontal horn right lateral ventricle. Malignancy cannot be excluded. Recommend IV contrast enhanced MRI brain. Global cerebral atrophy. Electronically signed by: Vincent Pandya MD 12/15/2024 10:21 AM EDT RP Lumbar Puncture Fluoroscopy 12/19/24 10:45 IMPRESSION: Successful fluoroscopic guided L3-4 interlaminar lumbar puncture. Electronically signed by: Kevin Barahona MD 12/19/2024 12:36 PM EDT RP Medications Medications Current Medications Acetaminophen (Acetaminophen 325 Mg Tablet) 650 mg PO Q6H PRN PRN Reason: Headache/Pain, Scale 1-10 Al Hydroxide/Mg Hydroxide (Magnesium Hydrox/Alum Hydrox 30 Ml Oral.Susp) 30 ml PO Q6H PRN PRN Reason: Heartburn/Nausea Amlodipine Besylate (Amlodipine Besylate 10 Mg Tablet) 10 mg PO DAILY OT[facility]; Protocol Last Admin: 12/19/24 08:31 Dose: 10 mg Clonidine HCl (Clonidine Hcl 0.1 Mg Tablet) 0.1 mg PO BID PRN; Protocol PRN Reason: severe anxiety Last Admin: 12/18/24 20:33 Dose: 0.1 mg Emtricitabine/Tenofovir Alafenamide (Emtricitabine/Tenofov Alafenam Tablet) 1 tab PO DAILY [facility] Last Admin: 12/19/24 08:30 Dose: 1 tab Finasteride (Finasteride 5 Mg Tablet) 5 mg PO DAILY OT[facility] Last Admin: 12/19/24 08:30 Dose: 5 mg Haloperidol (Haloperidol 5 Mg Tablet) 5 mg PO BID PRN PRN Reason: Agitation Last Admin: 12/13/24 17:36 Dose: 5 mg Hydroxyzine HCl (Hydroxyzine Hcl 25 Mg Tablet) 25 mg PO Q6H PRN PRN Reason: Anxiety Last Admin: 12/17/24 20:48 Dose: 25 mg Lactase (Lactase Tablet) 1 tab PO Q4H PRN PRN Reason: with dairy Losartan Potassium (Losartan Potassium 50 Mg Tablet) 100 mg PO DAILY [facility]; Protocol Last Admin: 12/19/24 08:30 Dose: 100 mg Magnesium Hydroxide (Milk Of Magnesia 30 Ml Oral.Susp) 30 ml PO DAILY PRN PRN Reason: Constipation Last Admin: 12/18/24 15:03 Dose: 30 ml Melatonin (Melatonin 3 Mg Tablet) 6 mg PO BEDTIME OT[facility] Last Admin: 12/18/24 20:13 Dose: 6 mg Olanzapine (Olanzapine 2.5 Mg Tablet) 2.5 mg PO BEDTIME OTIL[facility] Last Admin: 12/18/24 20:13 Dose: 2.5 mg Omeprazole (Omeprazole 20 Mg Capsule.Dr) 20 mg PO BEDTIME OTILIA Last Admin: 12/18/24 20:12 Dose: 20 mg Oxcarbazepine (Oxcarbazepine 300 Mg Tablet) 300 mg PO BID [facility] Last Admin: 12/19/24 08:31 Dose: 300 mg Oxcarbazepine (Oxcarbazepine 150 Mg Tablet) 150 mg PO TID PRN PRN Reason: Anxiety Tamsulosin HCl (Tamsulosin Hcl 0.4 Mg Capsule) 0.8 mg PO BEDTIME [facility] Last Admin: 12/18/24 20:13 Dose: 0.8 mg Tolterodine Tartrate (Tolterodine Tartrate La 4 Mg Cap.Er.24h) 4 mg PO DAILY [facility] Last Admin: 12/19/24 08:29 Dose: 4 mg Trazodone HCl (Trazodone Hcl 50 Mg Tablet) 50 mg PO BEDTIME MRX1 PRN PRN Reason: Insomnia Valacyclovir HCl (Valacyclovir Hcl 500 Mg Tablet) 500 mg PO DAILY [facility] Last Admin: 12/19/24 08:31 Dose: 500 mg Allergies Allergies Allergy/AdvReac Type Severity Reaction Status Date / Time No Known Allergies Allergy Verified 12/16/24 19:54 Assessment & Plan Assessment & Plan (1) Encephalopathy: Qualifiers: Encephalopathy type: unspecified encephalopathy Qualified Code(s): G93.40 - Encephalopathy, unspecified Status: Acute Code(s): G93.40 - Encephalopathy, unspecified (2) Hypertension: Qualifiers: Hypertension type: primary hypertension Qualified Code(s): I10 - Essential (primary) hypertension Status: Acute Code(s): I10 - Essential (primary) hypertension (3) Manic behavior: Status: Acute Code(s): F30.10 - Manic episode without psychotic symptoms, unspecified (4) OCD (obsessive compulsive disorder): Status: Acute Code(s): F42.9 - Obsessive-compulsive disorder, unspecified Plan Pt is a 74 yo male, unable to review PMH, PSH with pt as he states I do not want to discuss anything before I try to go to sleep as I will not sleep and I do not want any negative information . Pt explains that it is ok to speak with him after breakfast and when he has had his coffee. Nursing explained that patient was recently transferred from the [facility] unit to the [facility] after being discharged for suspected hypoxia with no underlying cause. Patient has had some changes with mentation over the last 2 months per his healthcare proxy and patient has stated that he wants to transition to female per nursing staff. Patient was recently admitted as an inpatient from 12/05/2024 to 12/12/2024 and was discharged to or [facility]. Patient originally brought into the ED for increased paranoia and agitation and was placed on a section 12. At that time patient was hypoxic with a pulse ox of 76% on room air. Patient's pulse ox on his earlobe at the time was normal. Patient's workup was negative and ABG was unremarkable. There was question whether patient had nocturnal hypoxia. Plan was to work that up as an outpatient. 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 Currently addressing pt's following medical problems: HTN Pt already on Losartan 100 mg daily Noted bradycardia Adding amlodpine 5 mg kenney, first dose tonight - pt currently asymptomatic Low Salt diet Avoid AV reji blockers including propranolol Encephalopathy with abnormal MRI Follow recommendations from Neurology Ordered IR for Lumbar Puncture for Wednesday with labs EEG testing per Neurology ESR normal Repeat UA HIV, RPR, Lyme testing all pending Bradycardia with normal [place] interval ECG ordered for review in AM Pt is not on any AV reji blockers TSH and MG stable BPH Continue finasteride and tamsulosin HIV Continue dESCOY HIV testing pending GERD Omeprazole Avoid food triggers HSV Valacyclovir Hospitalist group will continue to monitor patient in the interim while undergoing workup for abnormal MRI. In addition we will monitor patient's blood pressure and provide further recommendations as needed. : No med changes. Noted LP scheduled for Wednesday. Did modify allergies to remove lactose intolerance-pt adamant he has no issues regarding lactose, but also requested lactaid tabs when he has dairy. 12/19/2024 Patient with significant lability obsessional pressured speech difficulty taking in information. No new information from current LP results can not be obtained until patient's spinal fluid test negative of CJD. Increase olanzapine to 5 mg bedtime consider change of Trileptal to Depakote. Patient has 3 day notice will need to strongly consider filing for commitment Guardian/Caregiver educated on: diagnosis, medication risk/benefits and medical condition Reason for continued inpatient stay Substantial Risk for: inability to function, rapid decompensation and med/psych decompensation Time Spent With Patient Time: Total time managing care of this patient today __40__ minutes.
[2024-12-19 14:43] LABS: CMV DNA Qn PCR NOT DETECTED Log IU/mL (NOT DETECTED)
[2024-12-19 19:38] VITALS: BP 161/80; PULSE 67; RESP 17; TEMP 36.6; O2SAT 94
[2024-12-19] MEDS: Milk of Magnesia 30 ML ORAL.SUSP PO (21:38)
[2024-12-20 08:00] VITALS: BP 179/84; PULSE 62; RESP 18; TEMP 36.9; O2SAT 93
[2024-12-20] MEDS: Emtricitabine/Tenofov Alafenam TABLET 1 TAB PO (08:13)
--- NOTE | 2024-12-20 11:21 | HO.HCP ---
Health Care Proxy Invocation Health Care Proxy Declaration: I, _LU HORTA MD , on the date cited below, have determined that, __JOSE ALEJANDRE , lacks the capacity to make or communicate, informed health care decision. This determination is made in accordance with accepted standards of medical judgment and pursuant to [place] 201[place], the [place] Health Care Proxy Law. The cause, nature, extent and probable duration of the patient's inapacity are described below: Cause:White Matter changes on Brain mri that are extensive ischemic changes noted on brain MRI Exact cause for the patient's impairments which appeared to be consistent with a new dementia diagnosis are still being worked up Nature: The patient is experiencing significant changes in attention ability to take in information problems accessing memories. This is associated with severe anxiety and restlessness. Unable to process information on a consistent basis to take it in member what said and make an informed decision Extent: Presently the patient is cognitive difficulties and emotional state preclude him from being able to make medical decisions. Probable Duration of Patient's Incapacity: Would re-evaluate in 6 months
[2024-12-20 12:48] VITALS: BP 162/88
[2024-12-20] MEDS: Aspirin Enteric Coated 81 MG TABLET.DR PO (13:31)
[2024-12-20 14:54] LABS: Anion Gap 13 (12-20); Blood Urea Nitrogen 12 mg/dL (9-16); Calcium 10.0 mg/dL (8.4-10.2); Carbon Dioxide 26 mmol/L (22-29); Chloride 93 mmol/L (96-108); Creatinine Clr Calc Pharmacy 73.2; Estimated Glomerular Filt Rate > 60; Potassium 4.9 mmol/L (3.3-5.1); Sodium 127 mmol/L (135-145)
[2024-12-20 19:55] VITALS: BP 186/91; PULSE 71; TEMP 36; O2SAT 90
[2024-12-20 19:57] VITALS: BP 186/91
--- NOTE | 2024-12-20 22:21 | P.PNPSI_ITS ---
Subjective Subjective Date of Service: 12/20/24 Reason For Visit: inpt,evelyn Subjective Notes: Conditional Voluntary Healthcare Proxy: Yes Interim History: Pt has invoked hcp mood anxious intrusive sodium noted to be decreased pending cta pacing perseverative ? some improvement with olanzapine Side effects from medications: Yes (? hyponatremia trileptal ) Attending Groups: Intermittent Review of Systems Acute medical concerns: Yes neuro changes htn hyponatremia case reviewed dr peres Mental Status Exam Mental Status Exam Narrative: Patient is alert dressed in a robe ambulating without difficulty. Patient with pressured speech obsessional repeating himself. Patient with more insight knows that he is not himself and not acting properly at times . He remains perseverative repeating himself over and over in having a hard time retaining information was unclear whether he was taking his antihypertensives as an outpatient on a regular basis. Perseverates on Ativan again still being the cause for his difficulties then can take in information temporarily regarding changes on his MRI of the brain. Has generally been cooperative with testing. Hoping to be in a friendly setting has hard time with certain limits on the inpatient unit. Somewhat intrusive limited insight Diagnostics Vital Signs (24Hr): Vital Signs - 24 hr 12/20/24 08:00 12/20/24 12:48 12/20/24 19:55 Temperature 98.4 F 96.8 F Pulse Rate 62 71 Respiratory Rate 18 Blood Pressure 179/84 H 162/88 H 186/91 H Pulse Oximetry 93 90 L Oxygen Delivery Method Room Air Room Air 12/20/24 19:57 Temperature Pulse Rate Respiratory Rate Blood Pressure 186/91 H Pulse Oximetry Oxygen Delivery Method BMI result Body Mass Index 21.4 Labs 12/19/24 10:38 12/21/24 07:08 Labs: Laboratory Results - last 48 hr 12/15/24 12/16/24 12/19/24 12:23 07:00 10:38 Plt Count 179 PT 11.9 INR 1.0 Sodium Potassium Chloride Carbon Dioxide Anion Gap BUN Creatinine Estim Creat Clear Calc Estimated GFR Random Glucose Calcium Hold Yellow Top Urine Osmolality Ur Random Sodium Lyme Progressive Test TNP CMV Qnt PCR IU/mL NOT DETECTED CMV Qnt PCR log IU/mL NOT DETECTED 12/20/24 12/20/24 12/20/24 07:49 14:29 16:52 Plt Count PT INR Sodium 127 L Potassium 4.9 D Chloride 93 L Carbon Dioxide 26 Anion Gap 13 BUN 12 Creatinine 0.80 Estim Creat Clear Calc 73.2 Estimated GFR > 60 Random Glucose 111 Calcium 10.0 Hold Yellow Top See Note Urine Osmolality 425 Ur Random Sodium 43.0 Lyme Progressive Test CMV Qnt PCR IU/mL CMV Qnt PCR log IU/mL Imaging Radiology Impressions: ITS Impressions Brain MRI 12/15/24 09:35 IMPRESSION: Acute nonhemorrhagic ischemia involving the right precentral gyrus and left middle frontal gyrus concerning for embolic etiology. Extensive white matter disease likely related to small vessel occlusive disease. 5 mm nodular lesion, frontal horn right lateral ventricle. Malignancy cannot be excluded. Recommend IV contrast enhanced MRI brain. Global cerebral atrophy. Electronically signed by: Vincent Pandya MD 12/15/2024 10:21 AM EDT RP Lumbar Puncture Fluoroscopy 12/19/24 10:45 IMPRESSION: Successful fluoroscopic guided L3-4 interlaminar lumbar puncture. Electronically signed by: Kevin Barahona MD 12/19/2024 12:36 PM EDT RP Medications Medications Current Medications Acetaminophen (Acetaminophen 325 Mg Tablet) 650 mg PO Q6H PRN PRN Reason: Headache/Pain, Scale 1-10 Al Hydroxide/Mg Hydroxide (Magnesium Hydrox/Alum Hydrox 30 Ml Oral.Susp) 30 ml PO Q6H PRN PRN Reason: Heartburn/Nausea Amlodipine Besylate (Amlodipine Besylate 10 Mg Tablet) 10 mg PO DAILY [facility]; Protocol Last Admin: 12/20/24 08:13 Dose: 10 mg Aspirin (Aspirin Enteric Coated 81 Mg Tablet.) 81 mg PO BEDTIME [facility] Last Admin: 12/20/24 13:31 Dose: 81 mg Clonidine HCl (Clonidine Hcl 0.1 Mg Tablet) 0.1 mg PO BID PRN; Protocol PRN Reason: severe anxiety Last Admin: 12/18/24 20:33 Dose: 0.1 mg Divalproex Sodium (Divalproex Sodium 250 Mg Tablet.) 250 mg PO BID [facility] Last Admin: 12/20/24 19:57 Dose: 250 mg Emtricitabine/Tenofovir Alafenamide (Emtricitabine/Tenofov Alafenam Tablet) 1 tab PO DAILY [facility] Last Admin: 12/20/24 08:13 Dose: 1 tab Finasteride (Finasteride 5 Mg Tablet) 5 mg PO DAILY [facility] Last Admin: 12/20/24 08:13 Dose: 5 mg Haloperidol (Haloperidol 5 Mg Tablet) 5 mg PO BID PRN PRN Reason: Agitation Last Admin: 12/13/24 17:36 Dose: 5 mg Hydralazine HCl (Hydralazine Hcl 10 Mg Tablet) 10 mg PO TID [facility]; Protocol Last Admin: 12/20/24 19:57 Dose: 10 mg Hydroxyzine HCl (Hydroxyzine Hcl 25 Mg Tablet) 25 mg PO Q6H PRN PRN Reason: Anxiety Last Admin: 12/17/24 20:48 Dose: 25 mg Lactase (Lactase Tablet) 1 tab PO Q4H PRN PRN Reason: with dairy Losartan Potassium (Losartan Potassium 50 Mg Tablet) 100 mg PO DAILY [facility]; Protocol Last Admin: 12/20/24 08:13 Dose: 100 mg Magnesium Hydroxide (Milk Of Magnesia 30 Ml Oral.Susp) 30 ml PO DAILY PRN PRN Reason: Constipation Last Admin: 12/19/24 21:38 Dose: 30 ml Melatonin (Melatonin 3 Mg Tablet) 6 mg PO BEDTIME [facility] Last Admin: 12/20/24 19:57 Dose: 6 mg Olanzapine (Olanzapine 5 Mg Tablet) 5 mg PO BEDTIME [facility] Last Admin: 12/20/24 19:57 Dose: 5 mg Omeprazole (Omeprazole 20 Mg Capsule.Dr) 20 mg PO BEDTIME [facility] Last Admin: 12/20/24 19:57 Dose: 20 mg Tamsulosin HCl (Tamsulosin Hcl 0.4 Mg Capsule) 0.8 mg PO BEDTIME [facility] Last Admin: 12/20/24 19:58 Dose: 0.8 mg Tolterodine Tartrate (Tolterodine Tartrate La 4 Mg Cap.Er.24h) 4 mg PO DAILY [facility] Last Admin: 12/20/24 08:12 Dose: 4 mg Valacyclovir HCl (Valacyclovir Hcl 500 Mg Tablet) 500 mg PO DAILY [facility] Last Admin: 12/20/24 08:12 Dose: 500 mg Allergies Allergies Allergy/AdvReac Type Severity Reaction Status Date / Time No Known Allergies Allergy Verified 12/16/24 19:54 Assessment & Plan Assessment & Plan (1) Encephalopathy: Qualifiers: Encephalopathy type: unspecified encephalopathy Qualified Code(s): G 93.40 - Encephalopathy, unspecified Status: Acute Code(s): G93.40 - Encephalopathy, unspecified Assessment and Plan: 74 years old man with acute change in mental status with psychiatric symptoms of paranoia and agitation and confusion with forgetfulness. This seems to be a relatively recent and according to him he was fine couple of months ago. This would suggest a rapidly progressive process. Differential diagnosis would include atypical encephalitis from an atypical infection, or an inflammatory process including autoimmune condition. It would also include possibility of Crutzfeld Lobito disease. His MRI of brain did reveal subtle abnormalities suggesting any of these possibilities. I recommend sending serum test for Lyme, syphilis, HIV, and blood test for sed rate. If serum or blood tests do not provide any lead, a lumbar puncture is needed to do testing on CSF. EEG is also recommended, which in some cases can also help. (2) Hypertension: Qualifiers: Hypertension type: primary hypertension Qualified Code(s): I10 - Essential (primary) hypertension Status: Acute Code(s): I10 - Essential (primary) hypertension (3) Manic behavior: Status: Acute Code(s): F30.10 - Manic episode without psychotic symptoms, unspecified (4) OCD (obsessive compulsive disorder): Status: Acute Code(s): F42.9 - Obsessive-compulsive disorder, unspecified Plan Patient was scheduled for CTA electrolytes showed hyponatremia 127 most likely a result of Trileptal can also try and limit fluid intake. Urine sodium and urine concentration ordered. Trileptal start Depakote for racing thoughts agitation severe anxiety in addition to olanzapine 5 mg at bedtime. Trying to help get patient's neuro psychiatric symptoms treated so he can function be less impulsive and agitated upon discharge he will need supervision. CTA scheduled case reviewed with Dr. López patient's brother and Dr. Riley from hospitalist service. Did review with hospitalist service again that blood pressure still not under control hydralazine was ordered Guardian/Caregiver educated on: diagnosis and medical condition Informed Consent: further education needed Reason for continued inpatient stay Substantial Risk for: inability to function, rapid decompensation and med/psych decompensation Time Spent With Patient Time: Total time managing care of this patient today __45__ minutes.
[2024-12-21 07:45] LABS: Alanine Aminotransferase 15 U/L (0-40); Albumin Level 3.6 g/dL (3.5-5.0); Alkaline Phosphatase 52 U/L (39-117); Anion Gap 10 (12-20); Aspartate Amino Transferase 21 U/L (5-37); Blood Urea Nitrogen 18 mg/dL (9-16); Calcium 9.1 mg/dL (8.4-10.2); Carbon Dioxide 24 mmol/L (22-29); Chloride 97 mmol/L (96-108); Cholesterol 121 mg/dL (<200); Creatinine Clr Calc Pharmacy 70.6; Estimated Glomerular Filt Rate > 60; HDL Cholesterol 41 mg/dL (>40); Potassium 4.1 mmol/L (3.3-5.1); Sodium 127 mmol/L (135-145); Total Protein 5.7 g/dL (6.5-8.0); Triglycerides 46 mg/dL (<150)
[2024-12-21 08:00] VITALS: BP 159/79; PULSE 72
[2024-12-21] MEDS: Emtricitabine/Tenofov Alafenam TABLET 1 TAB PO (09:01)
[2024-12-21 09:15] LABS: Reflex LDLD? No
--- NOTE | 2024-12-21 10:17 | PM.EVENT ---
Event Note Date of Service: 12/21/24 Event Note: htn increased hydralazine to 25mg tid hyponatremia labs consistent with siadh fluid restrict as possible adding 3 days urea, monitor Time Spent With Patient Time: Total time managing care of this patient today ____ minutes.
[2024-12-21 11:04] VITALS: BMI 21.7
[2024-12-21] MEDS: iohexoL 350 MG/ML 100 ML INFUS..BTL IV (11:41)
--- NOTE | 2024-12-21 14:41 | HO.PSYCHPN ---
Subjective Subjective Date of Service: 12/21/24 Reason For Visit: inpt,evelyn Subjective Notes: Conditional Voluntary Healthcare Proxy: Yes Interim History: Pt pressured constantly talking obsessional in thought ruminating on when he can go pt hyponatremic tx with urea. Review of Systems hyponatremia Mental Status Exam Mental Status Exam Narrative: Patient is alert dressed in a robe ambulating without difficulty. Patient with pressured speech obsessional repeating himself. Patient with more insight knows that he is not himself and not acting properly at times . He remains perseverative repeating himself over and over in having a hard time retaining information was unclear whether he was taking his antihypertensives as an outpatient on a regular basis. Perseverates on Ativan again still being the cause for his difficulties then can take in information temporarily regarding changes on his MRI of the brain. Has generally been cooperative with testing. Hoping to be in a friendly setting has hard time with certain limits on the inpatient unit. Somewhat intrusive limited insight Diagnostics Vital Signs (24Hr): Vital Signs - 24 hr 12/20/24 19:55 12/20/24 19:57 12/21/24 08:00 Temperature 96.8 F Pulse Rate 71 72 Blood Pressure 186/91 H 186/91 H 159/79 H Pulse Oximetry 90 L Oxygen Delivery Method Room Air BMI result Body Mass Index 21.7 Labs 12/21/24 15:20 12/22/24 12:15 Labs: Laboratory Results - last 48 hr 12/16/24 12/20/24 12/20/24 07:00 07:49 14:29 Sodium 127 L Potassium 4.9 D Chloride 93 L Carbon Dioxide 26 Anion Gap 13 BUN 12 Creatinine 0.80 Estim Creat Clear Calc 73.2 Estimated GFR > 60 Random Glucose 111 Calcium 10.0 Total Bilirubin AST ALT Alkaline Phosphatase Total Protein Albumin Triglycerides Cholesterol LDL Cholesterol, Calc HDL Cholesterol Hold Yellow Top See Note Urine Osmolality Ur Random Sodium CMV Qnt PCR IU/mL NOT DETECTED CMV Qnt PCR log IU/mL NOT DETECTED 12/20/24 12/21/24 16:52 07:08 Sodium 127 L Potassium 4.1 Chloride 97 Carbon Dioxide 24 Anion Gap 10 L BUN 18 H Creatinine 0.83 Estim Creat Clear Calc 70.6 Estimated GFR > 60 Random Glucose 80 Calcium 9.1 D Total Bilirubin 0.6 AST 21 ALT 15 Alkaline Phosphatase 52 Total Protein 5.7 L Albumin 3.6 Triglycerides 46 Cholesterol 121 LDL Cholesterol, Calc 71 HDL Cholesterol 41 Hold Yellow Top Urine Osmolality 425 Ur Random Sodium 43.0 CMV Qnt PCR IU/mL CMV Qnt PCR log IU/mL Imaging Radiology Impressions: ITS Impressions Brain MRI 12/15/24 09:35 IMPRESSION: Acute nonhemorrhagic ischemia involving the right precentral gyrus and left middle frontal gyrus concerning for embolic etiology. Extensive white matter disease likely related to small vessel occlusive disease. 5 mm nodular lesion, frontal horn right lateral ventricle. Malignancy cannot be excluded. Recommend IV contrast enhanced MRI brain. Global cerebral atrophy. Electronically signed by: Vincent Pandya MD 12/15/2024 10:21 AM EDT RP Lumbar Puncture Fluoroscopy 12/19/24 10:45 IMPRESSION: Successful fluoroscopic guided L3-4 interlaminar lumbar puncture. Electronically signed by: Kevin Barahona MD 12/19/2024 12:36 PM EDT RP Head/Neck CTA 12/21/24 10:29 IMPRESSION: No main cerebral artery occlusion or embolus. Irregular calcified plaque at the proximal right ICA at representing less than 50% stenosis. No dissection. Probable 2 mm aneurysm, right A2 segment. This critical test result is communicated to: Electronically signed by: Vincent Pandya MD 12/21/2024 12:02 PM EDT RP Medications Medications Current Medications Acetaminophen (Acetaminophen 325 Mg Tablet) 650 mg PO Q6H PRN PRN Reason: Headache/Pain, Scale 1-10 Al Hydroxide/Mg Hydroxide (Magnesium Hydrox/Alum Hydrox 30 Ml Oral.Susp) 30 ml PO Q6H PRN PRN Reason: Heartburn/Nausea Amlodipine Besylate (Amlodipine Besylate 10 Mg Tablet) 10 mg PO DAILY [facility]; Protocol Last Admin: 12/21/24 09:00 Dose: 10 mg Aspirin (Aspirin Enteric Coated 81 Mg Tablet.) 81 mg PO BEDTIME [facility] Last Admin: 12/20/24 13:31 Dose: 81 mg Atorvastatin Calcium (Atorvastatin Calcium 40 Mg Tablet) 40 mg PO BEDTIME [facility] Clonidine HCl (Clonidine Hcl 0.1 Mg Tablet) 0.1 mg PO BID PRN; Protocol PRN Reason: severe anxiety Last Admin: 12/18/24 20:33 Dose: 0.1 mg Divalproex Sodium (Divalproex Sodium 250 Mg Tablet.) 250 mg PO BID [facility] Last Admin: 12/21/24 09:00 Dose: 250 mg Emtricitabine/Tenofovir Alafenamide (Emtricitabine/Tenofov Alafenam Tablet) 1 tab PO DAILY [facility] Last Admin: 12/21/24 09:01 Dose: 1 tab Finasteride (Finasteride 5 Mg Tablet) 5 mg PO DAILY [facility] Last Admin: 12/21/24 09:01 Dose: 5 mg Haloperidol (Haloperidol 5 Mg Tablet) 5 mg PO BID PRN PRN Reason: Agitation Last Admin: 12/13/24 17:36 Dose: 5 mg Hydralazine HCl (Hydralazine Hcl 25 Mg Tablet) 25 mg PO TID [facility]; Protocol Last Admin: 12/21/24 09:32 Dose: 25 mg Hydroxyzine HCl (Hydroxyzine Hcl 25 Mg Tablet) 25 mg PO Q6H PRN PRN Reason: Anxiety Last Admin: 12/17/24 20:48 Dose: 25 mg Lactase (Lactase Tablet) 1 tab PO Q4H PRN PRN Reason: with dairy Losartan Potassium (Losartan Potassium 50 Mg Tablet) 100 mg PO DAILY [facility]; Protocol Last Admin: 12/21/24 09:00 Dose: 100 mg Magnesium Hydroxide (Milk Of Magnesia 30 Ml Oral.Susp) 30 ml PO DAILY PRN PRN Reason: Constipation Last Admin: 12/19/24 21:38 Dose: 30 ml Melatonin (Melatonin 3 Mg Tablet) 6 mg PO BEDTIME [facility] Last Admin: 12/20/24 19:57 Dose: 6 mg Olanzapine (Olanzapine 5 Mg Tablet) 5 mg PO BEDTIME [facility] Last Admin: 12/20/24 19:57 Dose: 5 mg Omeprazole (Omeprazole 20 Mg Capsule.) 20 mg PO BEDTIME [facility] Last Admin: 12/20/24 19:57 Dose: 20 mg Tamsulosin HCl (Tamsulosin Hcl 0.4 Mg Capsule) 0.8 mg PO BEDTIME [facility] Last Admin: 12/20/24 19:58 Dose: 0.8 mg Tolterodine Tartrate (Tolterodine Tartrate La 4 Mg Cap.Er.24h) 4 mg PO DAILY [facility] Last Admin: 12/21/24 09:01 Dose: 4 mg Urea (Urea 15 Gm Powder) 15 gm PO DAILY [facility] Stop: 12/23/24 09:01 Last Admin: 12/21/24 13:34 Dose: 15 gm Valacyclovir HCl (Valacyclovir Hcl 500 Mg Tablet) 500 mg PO DAILY [facility] Last Admin: 12/21/24 09:00 Dose: 500 mg Allergies Allergies Allergy/AdvReac Type Severity Reaction Status Date / Time No Known Allergies Allergy Verified 12/16/24 19:54 Assessment & Plan Assessment & Plan (1) Encephalopathy: Qualifiers: Encephalopathy type: unspecified encephalopathy Qualified Code(s): G93.40 - Encephalopathy, unspecified Status: Acute Code(s): G93.40 - Encephalopathy, unspecified Assessment and Plan: 74 years old man with acute change in mental status with psychiatric symptoms of paranoia and agitation and confusion with forgetfulness. This seems to be a relatively recent and according to him he was fine couple of months ago. This would suggest a rapidly progressive process. Differential diagnosis would include atypical encephalitis from an atypical infection, or an inflammatory process including autoimmune condition. It would also include possibility of Crutzfeld Lobito disease. His MRI of brain did reveal subtle abnormalities suggesting any of these possibilities. I recommend sending serum test for Lyme, syphilis, HIV, and blood test for sed rate. If serum or blood tests do not provide any lead, a lumbar puncture is needed to do testing on CSF. EEG is also recommended, which in some cases can also help. (2) Hypertension: Qualifiers: Hypertension type: primary hypertension Qualified Code(s): I10 - Essential (primary) hypertension Status: Acute Code(s): I10 - Essential (primary) hypertension (3) Manic behavior: Status: Acute Code(s): F30.10 - Manic episode without psychotic symptoms, unspecified (4) OCD (obsessive compulsive disorder): Status: Acute Code(s): F42.9 - Obsessive-compulsive disorder, unspecified Plan Hyponatrenia monitor sodium urea anxious ruminating depakote trial olanzapine Reason for continued inpatient stay Substantial Risk for: inability to function and rapid decompensation Time Spent With Patient Time: Total time managing care of this patient today ____ minutes.
[2024-12-21 15:10] VITALS: BP 127/67
[2024-12-21 15:36] LABS: Hematocrit 39.4 % (42.0-52.0); Hemoglobin 14.6 g/dl (14.0-18.0); Imm Gran Abs Auto 0.01 X10*3/uL (0.00-0.03); Imm Gran Pct Auto 0.2 % (0.0-0.4); Lymphocytes Absolute Auto 1.6 X10*3/uL (1.2-4.9); Mean Corpuscular HGB Conc 37.1 g/dl (31.0-36.0); Mean Corpuscular Hemoglobin 35.4 pg (27.0-33.0); Mean Corpuscular Volume 95.4 fL (80.0-98.0); NRBC Abs Auto 0.000 X10*3/uL (0.0-0.012); NRBC Pct Auto 0.0 /100WBC (0.0-0.2); Red Blood Count 4.13 X10*6/uL (4.60-5.80); White Blood Count 5.2 X10*3/uL (4.8-10.8)
[2024-12-21 15:48] LABS: Anion Gap 15 (12-20); Blood Urea Nitrogen 26 mg/dL (9-16); Calcium 10.1 mg/dL (8.4-10.2); Carbon Dioxide 24 mmol/L (22-29); Chloride 94 mmol/L (96-108); Creatinine Clr Calc Pharmacy 64.5; Estimated Glomerular Filt Rate > 60; Potassium 4.9 mmol/L (3.3-5.1); Sodium 128 mmol/L (135-145)
[2024-12-21 16:06] LABS: MANUAL DIFF FLAG SCAN
[2024-12-21 16:27] LABS: Platelet Count 235 X10*3/uL (160-400)
[2024-12-21 20:00] VITALS: BP 134/74; PULSE 77; RESP 20; TEMP 36.7; O2SAT 90
[2024-12-21] MEDS: Aspirin Enteric Coated 81 MG TABLET.DR PO (21:10)
--- NOTE | 2024-12-22 07:16 | PM.EVENT ---
Event Note Date of Service: 12/22/24 Event Note: HTN bp better controlled, continue to monitor on losartan 100mg, amlodipine 10mg daily, hydrazine 25mg tid PVD continue asa, added lipitor 40 hyponatremia siadh, slight improvement today 127 -> 128 continue fluid restriction, urea day 2/3, monitor sodium daily for now Time Spent With Patient Time: Total time managing care of this patient today ____ minutes.
[2024-12-22 08:15] LABS: Lithium < 0.10 mmol/L (0.60-1.20)
[2024-12-22 09:37] VITALS: BP 123/76; PULSE 74; RESP 15; TEMP 36.9; O2SAT 93
[2024-12-22] MEDS: Emtricitabine/Tenofov Alafenam TABLET 1 TAB PO (09:39)
--- NOTE | 2024-12-22 11:33 | P.PNPSI_ITS ---
Subjective Subjective Date of Service: 12/22/24 Reason For Visit: inpt,evelyn Subjective Notes: Conditional Voluntary Healthcare Proxy: Yes Interim History: Patient had cta carotids ok vascalar brain changes noted. Still has racing thoughts agitation pressured speech severe obsessional thoughts perseverative difficulty taking in information. Brother gene hcp has been updated regularly. Hyponatremia corrected still periods of htn Medication Compliance: Yes Attending Groups: Intermittent Mental Status Exam Mental Status Exam Narrative: Patient is alert dressed in a robe ambulating without difficulty. Patient with pressured speech obsessional repeating himself. Patient with more insight knows that he is not himself and not acting properly at times . He remains perseverative repeating himself over and over in having a hard time retaining information. Mood intensely anxious irritable if things are not done exactly the way that he feels he needs agreeable repeatedly to his brother being healthcare proxy. Thoughts disorganized difficulty focusing and retaining no SI or HI no hallucinations or delusional material Diagnostics Vital Signs (24Hr): Vital Signs - 24 hr 12/21/24 15:10 12/21/24 20:00 12/22/24 09:37 Temperature 98.0 F 98.5 F Pulse Rate 77 74 Respiratory Rate 20 15 Blood Pressure 127/67 134/74 123/76 Pulse Oximetry 90 L 93 Oxygen Delivery Method Room Air Room Air BMI result Body Mass Index 21.7 Labs 12/21/24 15:20 12/22/24 12:15 Labs: Laboratory Results - last 48 hr 12/20/24 12/20/24 12/21/24 14:29 16:52 07:08 WBC RBC Hgb Hct MCV MCH MCHC RDW Plt Count MPV Immature Gran % (Auto) Neut % (Auto) Lymph % (Auto) [place] % (Auto) Eos % (Auto) Baso % (Auto) Lymph # (Auto) [place] # (Auto) Eos # (Auto) Baso # (Auto) Abs Immat Gran (auto) Absolute Neuts (auto) Absolute Nucleated RBC Nucleated RBC % (auto) Smear Tech's Comments Sodium 127 L 127 L Potassium 4.9 D 4.1 Chloride 93 L 97 Carbon Dioxide 26 24 Anion Gap 13 10 L BUN 12 18 H Creatinine 0.80 0.83 Estim Creat Clear Calc 73.2 70.6 Estimated GFR > 60 > 60 Random Glucose 111 80 Calcium 10.0 9.1 D Total Bilirubin 0.6 AST 21 ALT 15 Alkaline Phosphatase 52 Total Protein 5.7 L Albumin 3.6 Triglycerides 46 Cholesterol 121 LDL Cholesterol, Calc 71 HDL Cholesterol 41 Urine Osmolality 425 Ur Random Sodium 43.0 [place] 12/21/24 12/22/24 15:20 07:30 WBC 5.2 RBC 4.13 L Hgb 14.6 Hct 39.4 L MCV 95.4 MCH 35.4 H MCHC 37.1 H RDW 11.5 Plt Count 235 D MPV 10.1 Immature Gran % (Auto) 0.2 Neut % (Auto) 57.0 Lymph % (Auto) 31.2 [place] % (Auto) 9.1 Eos % (Auto) 1.3 Baso % (Auto) 1.2 Lymph # (Auto) 1.6 [place] # (Auto) 0.5 Eos # (Auto) 0.1 Baso # (Auto) 0.1 Abs Immat Gran (auto) 0.01 Absolute Neuts (auto) 3.0 Absolute Nucleated RBC 0.000 Nucleated RBC % (auto) 0.0 Smear Tech's Comments VERIFIED Sodium 128 L Potassium 4.9 Chloride 94 L Carbon Dioxide 24 Anion Gap 15 BUN 26 H Creatinine 0.92 Estim Creat Clear Calc 64.5 Estimated GFR > 60 Random Glucose 99 Calcium 10.1 D Total Bilirubin AST ALT Alkaline Phosphatase Total Protein Albumin Triglycerides Cholesterol LDL Cholesterol, Calc HDL Cholesterol Urine Osmolality Ur Random Sodium [place] < 0.10 L Imaging Radiology Impressions: ITS Impressions Brain MRI 12/15/24 09:35 IMPRESSION: Acute nonhemorrhagic ischemia involving the right precentral gyrus and left middle frontal gyrus concerning for embolic etiology. Extensive white matter disease likely related to small vessel occlusive disease. 5 mm nodular lesion, frontal horn right lateral ventricle. Malignancy cannot be excluded. Recommend IV contrast enhanced MRI brain. Global cerebral atrophy. Electronically signed by: Vincent Pandya MD 12/15/2024 10:21 AM EDT RP Lumbar Puncture Fluoroscopy 12/19/24 10:45 IMPRESSION: Successful fluoroscopic guided L3-4 interlaminar lumbar puncture. Electronically signed by: Kevin Barahona MD 12/19/2024 12:36 PM EDT RP Head/Neck CTA 12/21/24 10:29 IMPRESSION: No main cerebral artery occlusion or embolus. Irregular calcified plaque at the proximal right ICA at representing less than 50% stenosis. No dissection. Probable 2 mm aneurysm, right A2 segment. This critical test result is communicated to: Electronically signed by: Vincent Pandya MD 12/21/2024 12:02 PM EDT RP Medications Medications Current Medications Acetaminophen (Acetaminophen 325 Mg Tablet) 650 mg PO Q6H PRN PRN Reason: Headache/Pain, Scale 1-10 Al Hydroxide/Mg Hydroxide (Magnesium Hydrox/Alum Hydrox 30 Ml Oral.Susp) 30 ml PO Q6H PRN PRN Reason: Heartburn/Nausea Amlodipine Besylate (Amlodipine Besylate 10 Mg Tablet) 10 mg PO DAILY [facility]; Protocol Last Admin: 12/22/24 09:39 Dose: 10 mg Aspirin (Aspirin Enteric Coated 81 Mg Tablet.) 81 mg PO BEDTIME [facility] Last Admin: 12/21/24 21:10 Dose: 81 mg Atorvastatin Calcium (Atorvastatin Calcium 40 Mg Tablet) 40 mg PO BEDTIME [facility] Last Admin: 12/21/24 21:11 Dose: 40 mg Clonidine HCl (Clonidine Hcl 0.1 Mg Tablet) 0.1 mg PO BID PRN; Protocol PRN Reason: severe anxiety Last Admin: 12/18/24 20:33 Dose: 0.1 mg Divalproex Sodium (Divalproex Sodium 250 Mg Tablet.) 250 mg PO BID [facility] Last Admin: 12/22/24 09:39 Dose: 250 mg Emtricitabine/Tenofovir Alafenamide (Emtricitabine/Tenofov Alafenam Tablet) 1 tab PO DAILY [facility] Last Admin: 12/22/24 09:39 Dose: 1 tab Finasteride (Finasteride 5 Mg Tablet) 5 mg PO DAILY [facility] Last Admin: 12/22/24 09:39 Dose: 5 mg Haloperidol (Haloperidol 5 Mg Tablet) 5 mg PO BID PRN PRN Reason: Agitation Last Admin: 12/13/24 17:36 Dose: 5 mg Hydralazine HCl (Hydralazine Hcl 25 Mg Tablet) 25 mg PO TID [facility]; Protocol Last Admin: 12/22/24 09:39 Dose: 25 mg Hydroxyzine HCl (Hydroxyzine Hcl 25 Mg Tablet) 25 mg PO Q6H PRN PRN Reason: Anxiety Last Admin: 12/17/24 20:48 Dose: 25 mg Lactase (Lactase Tablet) 1 tab PO Q4H PRN PRN Reason: with dairy Losartan Potassium (Losartan Potassium 50 Mg Tablet) 100 mg PO DAILY [facility]; Protocol Last Admin: 12/22/24 09:39 Dose: 100 mg Magnesium Hydroxide (Milk Of Magnesia 30 Ml Oral.Susp) 30 ml PO DAILY PRN PRN Reason: Constipation Last Admin: 12/19/24 21:38 Dose: 30 ml Melatonin (Melatonin 3 Mg Tablet) 6 mg PO BEDTIME [facility] Last Admin: 12/21/24 21:13 Dose: 6 mg Olanzapine (Olanzapine 5 Mg Tablet) 5 mg PO BEDTIME [facility] Last Admin: 12/21/24 21:12 Dose: 5 mg Omeprazole (Omeprazole 20 Mg Capsule.Dr) 20 mg PO BEDTIME [facility] Last Admin: 12/21/24 21:12 Dose: 20 mg Tamsulosin HCl (Tamsulosin Hcl 0.4 Mg Capsule) 0.8 mg PO BEDTIME [facility] Last Admin: 12/21/24 21:11 Dose: 0.8 mg Tolterodine Tartrate (Tolterodine Tartrate La 4 Mg Cap.Er.24h) 4 mg PO DAILY [facility] Last Admin: 12/22/24 09:39 Dose: 4 mg Urea (Urea 15 Gm Powder) 15 gm PO DAILY [facility] Stop: 12/23/24 09:01 Last Admin: 12/22/24 09:39 Dose: 15 gm Valacyclovir HCl (Valacyclovir Hcl 500 Mg Tablet) 500 mg PO DAILY [facility] Last Admin: 12/22/24 09:39 Dose: 500 mg Allergies Allergies Allergy/AdvReac Type Severity Reaction Status Date / Time No Known Allergies Allergy Verified 12/16/24 19:54 Assessment & Plan Assessment & Plan (1) Encephalopathy: Qualifiers: Encephalopathy type: unspecified encephalopathy Qualified Code(s): G 93.40 - Encephalopathy, unspecified Status: Acute Code(s): G93.40 - Encephalopathy, unspecified Assessment and Plan: 74 years old man with acute change in mental status with psychiatric symptoms of paranoia and agitation and confusion with forgetfulness. This seems to be a relatively recent and according to him he was fine couple of months ago. This would suggest a rapidly progressive process. Differential diagnosis would include atypical encephalitis from an atypical infection, or an inflammatory process including autoimmune condition. It would also include possibility of Crutzfeld Lobito disease. His MRI of brain did reveal subtle abnormalities suggesting any of these possibilities. I recommend sending serum test for Lyme, syphilis, HIV, and blood test for sed rate. If serum or blood tests do not provide any lead, a lumbar puncture is needed to do testing on CSF. EEG is also recommended, which in some cases can also help. (2) Hypertension: Qualifiers: Hypertension type: primary hypertension Qualified Code(s): I10 - Essential (primary) hypertension Status: Acute Code(s): I10 - Essential (primary) hypertension (3) Manic behavior: Status: Acute Code(s): F30.10 - Manic episode without psychotic symptoms, unspecified (4) OCD (obsessive compulsive disorder): Status: Acute Code(s): F42.9 - Obsessive-compulsive disorder, unspecified Plan Patient with ongoing obsessional thoughts intense pressured speech racing thoughts. Mirtazapine 7.5 mg at bedtime see if help with insomnia and obsessional anxiety continue olanzapine 5 mg at bedtime with a 2.5 mg prn targeting agitation obsessional thoughts anxiety. Still do not have results from lumbar puncture which may suggest other causes besides vascular brain changes the patient's symptoms Guardian/Caregiver educated on: diagnosis and medication risk/benefits Informed Consent: further education needed Reason for continued inpatient stay Substantial Risk for: inability to function, rapid decompensation and med/psych decompensation Time Spent With Patient Time: Total time managing care of this patient today __35__ minutes.
[2024-12-22 12:46] LABS: Anion Gap 12 (12-20); Carbon Dioxide 30 mmol/L (22-29); Chloride 96 mmol/L (96-108); Potassium 5.1 mmol/L (3.3-5.1); Sodium 133 mmol/L (135-145)
[2024-12-22 12:49] LABS: Blood Urea Nitrogen 38 mg/dL (9-16); Calcium 10.6 mg/dL (8.4-10.2); Creatinine Clr Calc Pharmacy 58.2; Estimated Glomerular Filt Rate > 60
[2024-12-22 15:28] VITALS: BP 154/81
[2024-12-22 20:00] VITALS: BP 146/66; PULSE 67; RESP 18; TEMP 36.5; O2SAT 97
[2024-12-22 21:55] VITALS: BP 146/66
[2024-12-22] MEDS: Aspirin Enteric Coated 81 MG TABLET.DR PO (21:55)
[2024-12-23 09:03] VITALS: BP 130/66; PULSE 75; RESP 18; TEMP 36.8; O2SAT 94
--- NOTE | 2024-12-23 09:13 | P.PNPSI_ITS ---
Subjective Subjective Date of Service: 12/23/24 Reason For Visit: inpt,evelyn Interim History: Patient remains pressured and hyperactive. Intrusive. Perseverating on his [employer]. Pressured. Visible on the unit. Wearing a pink robe. Disorganized thought process. Toleratine medications. no SI Review of Systems Review of Systems nothing acute Yes all other systems are reviewed and are negative Mental Status Exam Mental Status Exam Narrative: Patient is alert dressed in a robe ambulating without difficulty. Patient with pressured speech obsessional repeating himself. Patient with more insight knows that he is not himself and not acting properly at times . He remains perseverative repeating himself over and over in having a hard time retaining information was unclear whether he was taking his antihypertensives as an outpatient on a regular basis. Perseverates on Ativan again still being the cause for his difficulties then can take in information temporarily regarding changes on his MRI of the brain. Has generally been cooperative with testing. Hoping to be in a friendly setting has hard time with certain limits on the inpatient unit. Somewhat intrusive limited insight Diagnostics Vital Signs (24Hr): Vital Signs - 24 hr 12/22/24 09:37 12/22/24 15:28 12/22/24 20:00 Temperature 98.5 F 97.7 F Pulse Rate 74 67 Respiratory Rate 15 18 Blood Pressure 123/76 154/81 H 146/66 H Pulse Oximetry 93 97 Oxygen Delivery Method Room Air Room Air 12/22/24 21:55 12/23/24 09:03 Temperature 98.2 F Pulse Rate 75 Respiratory Rate 18 Blood Pressure 146/66 H 130/66 Pulse Oximetry 94 Oxygen Delivery Method Room Air BMI result Body Mass Index 21.7 Labs 12/21/24 15:20 12/22/24 12:15 Labs: Laboratory Results - last 48 hr 12/21/24 12/22/24 12/22/24 15:20 07:30 12:15 WBC 5.2 RBC 4.13 L Hgb 14.6 Hct 39.4 L MCV 95.4 MCH 35.4 H MCHC 37.1 H RDW 11.5 Plt Count 235 D MPV 10.1 Immature Gran % (Auto) 0.2 Neut % (Auto) 57.0 Lymph % (Auto) 31.2 [place] % (Auto) 9.1 Eos % (Auto) 1.3 Baso % (Auto) 1.2 Lymph # (Auto) 1.6 [place] # (Auto) 0.5 Eos # (Auto) 0.1 Baso # (Auto) 0.1 Abs Immat Gran (auto) 0.01 Absolute Neuts (auto) 3.0 Absolute Nucleated RBC 0.000 Nucleated RBC % (auto) 0.0 Smear Tech's Comments VERIFIED Sodium 128 L 133 L Potassium 4.9 5.1 Chloride 94 L 96 Carbon Dioxide 24 30 H Anion Gap 15 12 BUN 26 H 38 H Creatinine 0.92 1.02 Estim Creat Clear Calc 64.5 58.2 Estimated GFR > 60 > 60 Random Glucose 99 111 Calcium 10.1 D 10.6 H [place] < 0.10 L Imaging Radiology Impressions: ITS Impressions Brain MRI 12/15/24 09:35 IMPRESSION: Acute nonhemorrhagic ischemia involving the right precentral gyrus and left middle frontal gyrus concerning for embolic etiology. Extensive white matter disease likely related to small vessel occlusive disease. 5 mm nodular lesion, frontal horn right lateral ventricle. Malignancy cannot be excluded. Recommend IV contrast enhanced MRI brain. Global cerebral atrophy. Electronically signed by: Vincent Pandya MD 12/15/2024 10:21 AM EDT RP Lumbar Puncture Fluoroscopy 12/19/24 10:45 IMPRESSION: Successful fluoroscopic guided L3-4 interlaminar lumbar puncture. Electronically signed by: Kevin Barahona MD 12/19/2024 12:36 PM EDT RP Head/Neck CTA 12/21/24 10:29 IMPRESSION: No main cerebral artery occlusion or embolus. Irregular calcified plaque at the proximal right ICA at representing less than 50% stenosis. No dissection. Probable 2 mm aneurysm, right A2 segment. This critical test result is communicated to: Electronically signed by: Vincent Pandya MD 12/21/2024 12:02 PM EDT RP Medications Medications Current Medications Acetaminophen (Acetaminophen 325 Mg Tablet) 650 mg PO Q6H PRN PRN Reason: Headache/Pain, Scale 1-10 Al Hydroxide/Mg Hydroxide (Magnesium Hydrox/Alum Hydrox 30 Ml Oral.Susp) 30 ml PO Q6H PRN PRN Reason: Heartburn/Nausea Amlodipine Besylate (Amlodipine Besylate 10 Mg Tablet) 10 mg PO DAILY [facility]; Protocol Last Admin: 12/22/24 09:39 Dose: 10 mg Aspirin (Aspirin Enteric Coated 81 Mg Tablet.Dr) 81 mg PO BEDTIME [facility] Last Admin: 12/22/24 21:55 Dose: 81 mg Atorvastatin Calcium (Atorvastatin Calcium 40 Mg Tablet) 40 mg PO BEDTIME [facility] Last Admin: 12/22/24 21:55 Dose: 40 mg Clonidine HCl (Clonidine Hcl 0.1 Mg Tablet) 0.1 mg PO BID PRN; Protocol PRN Reason: severe anxiety Last Admin: 12/18/24 20:33 Dose: 0.1 mg Divalproex Sodium (Divalproex Sodium 250 Mg Tablet.Dr) 250 mg PO BID [facility] Last Admin: 12/22/24 21:55 Dose: 250 mg Emtricitabine/Tenofovir Alafenamide (Emtricitabine/Tenofov Alafenam Tablet) 1 tab PO DAILY [facility] Last Admin: 12/22/24 09:39 Dose: 1 tab Finasteride (Finasteride 5 Mg Tablet) 5 mg PO DAILY [facility] Last Admin: 12/22/24 09:39 Dose: 5 mg Hydralazine HCl (Hydralazine Hcl 25 Mg Tablet) 25 mg PO TID [facility]; Protocol Last Admin: 12/22/24 21:55 Dose: 25 mg Hydroxyzine HCl (Hydroxyzine Hcl 25 Mg Tablet) 25 mg PO Q6H PRN PRN Reason: Anxiety Last Admin: 12/17/24 20:48 Dose: 25 mg Lactase (Lactase Tablet) 1 tab PO Q4H PRN PRN Reason: with dairy Losartan Potassium (Losartan Potassium 50 Mg Tablet) 100 mg PO DAILY [facility]; Protocol Last Admin: 12/22/24 09:39 Dose: 100 mg Magnesium Hydroxide (Milk Of Magnes[place] 30 Ml Oral.Susp) 30 ml PO DAILY PRN PRN Reason: Constipation Last Admin: 12/19/24 21:38 Dose: 30 ml Melatonin (Melatonin 3 Mg Tablet) 6 mg PO BEDTIME [facility] Last Admin: 12/22/24 21:54 Dose: 6 mg Mirtazapine (Mirtazapine 7.5 Mg Tablet) 7.5 mg PO BEDTIME [facility] Last Admin: 12/22/24 21:55 Dose: 7.5 mg Olanzapine (Olanzapine 5 Mg Tablet) 5 mg PO BEDTIME [facility] Last Admin: 12/22/24 21:55 Dose: 5 mg Olanzapine (Olanzapine 2.5 Mg Tablet) 2.5 mg PO Q4H PRN PRN Reason: anxiety/restlessness Omeprazole (Omeprazole 20 Mg Capsule.Dr) 20 mg PO BEDTIME [facility] Last Admin: 12/22/24 21:55 Dose: 20 mg Tamsulosin HCl (Tamsulosin Hcl 0.4 Mg Capsule) 0.8 mg PO BEDTIME [facility] Last Admin: 12/22/24 21:55 Dose: 0.8 mg Tolterodine Tartrate (Tolterodine Tartrate [place] 4 Mg Cap.Er.24h) 4 mg PO DAILY [facility] Last Admin: 12/22/24 09:39 Dose: 4 mg Valacyclovir HCl (Valacyclovir Hcl 500 Mg Tablet) 500 mg PO DAILY [facility] Last Admin: 12/22/24 09:39 Dose: 500 mg Allergies Allergies Allergy/AdvReac Type Severity Reaction Status Date / Time No Known Allergies Allergy Verified 12/16/24 19:54 Assessment & Plan Assessment & Plan (1) Encephalopathy: Qualifiers: Encephalopathy type: unspecified encephalopathy Qualified Code(s): G 93.40 - Encephalopathy, unspecified Status: Acute Code(s): G93.40 - Encephalopathy, unspecified Assessment and Plan: 74 years old man with acute change in mental status with psychiatric symptoms of paranoia and agitation and confusion with forgetfulness. This seems to be a relatively recent and according to him he was fine couple of months ago. This would suggest a rapidly progressive process. Differential diagnosis would include atypical encephalitis from an atypical infection, or an inflammatory process including autoimmune condition. It would also include possibility of Crutzfeld Lobito disease. His MRI of brain did reveal subtle abnormalities suggesting any of these possibilities. I recommend sending serum test for Lyme, syphilis, HIV, and blood test for sed rate. If serum or blood tests do not provide any lead, a lumbar puncture is needed to do testing on CSF. EEG is also recommended, which in some cases can also help. 12/23: continue current management and treatment plan. (2) Hypertension: Qualifiers: Hypertension type: primary hypertension Qualified Code(s): I10 - Essential (primary) hypertension Status: Acute Code(s): I10 - Essential (primary) hypertension (3) Manic behavior: Status: Acute Code(s): F30.10 - Manic episode without psychotic symptoms, unspecified (4) OCD (obsessive compulsive disorder): Status: Acute Code(s): F42.9 - Obsessive-compulsive disorder, unspecified Plan Hyponatrenia monitor sodium urea anxious ruminating depakote trial olanzapine Reason for continued inpatient stay Substantial Risk for: inability to function, rapid decompensation and med/psych decompensation Time Spent With Patient Time: Total time managing care of this patient today ____ minutes.
[2024-12-23] MEDS: Emtricitabine/Tenofov Alafenam TABLET 1 TAB PO (09:37)
[2024-12-23 14:35] VITALS: BP 146/69
[2024-12-23 20:00] VITALS: BP 146/74; BP 146/79; PULSE 81; RESP 18; TEMP 36.3; O2SAT 92
[2024-12-23 20:41] VITALS: BP 146/74
[2024-12-23] MEDS: Aspirin Enteric Coated 81 MG TABLET.DR PO (20:41)
--- NOTE | 2024-12-24 08:47 | HO.PSYCHPN ---
Subjective Subjective Date of Service: 12/24/24 Reason For Visit: inpt,evelyn Interim History: Patient is intrusive, talkative but redirectable. Perseverating and repeating sentences. He reports his sleep has improved. Observed in the milieu talking constantly to peers and staff. Disorganized thinking. Pressured. Toleratine medications. Anxious. no SI Review of Systems Review of Systems nothing acute Yes all other systems are reviewed and are negative Mental Status Exam Mental Status Exam Narrative: Patient is alert dressed in a robe ambulating without difficulty. Patient with pressured speech obsessional repeating himself. Patient with more insight knows that he is not himself and not acting properly at times . He remains perseverative repeating himself over and over in having a hard time retaining information was unclear whether he was taking his antihypertensives as an outpatient on a regular basis. Perseverates on Ativan again still being the cause for his difficulties then can take in information temporarily regarding changes on his MRI of the brain. Has generally been cooperative with testing. Hoping to be in a friendly setting has hard time with certain limits on the inpatient unit. Somewhat intrusive limited insight Diagnostics Vital Signs (24Hr): Vital Signs - 24 hr 12/23/24 09:03 12/23/24 14:35 12/23/24 20:00 Temperature 98.2 F 97.3 F Pulse Rate 75 81 Respiratory Rate 18 Blood Pressure 130/66 146/69 H 146/74 H Pulse Oximetry 94 92 Oxygen Delivery Method Room Air Room Air 12/23/24 20:00 12/23/24 20:41 Temperature 97.3 F Pulse Rate 81 Respiratory Rate 18 Blood Pressure 146/79 H 146/74 H Pulse Oximetry 92 Oxygen Delivery Method Room Air BMI result Body Mass Index 21.7 Labs 12/21/24 15:20 12/22/24 12:15 Labs: Laboratory Results - last 48 hr 12/22/24 12:15 Sodium 133 L Potassium 5.1 Chloride 96 Carbon Dioxide 30 H Anion Gap 12 BUN 38 H Creatinine 1.02 Estim Creat Clear Calc 58.2 Estimated GFR > 60 Random Glucose 111 Calcium 10.6 H Imaging Radiology Impressions: ITS Impressions Brain MRI 12/15/24 09:35 IMPRESSION: Acute nonhemorrhagic ischemia involving the right precentral gyrus and left middle frontal gyrus concerning for embolic etiology. Extensive white matter disease likely related to small vessel occlusive disease. 5 mm nodular lesion, frontal horn right lateral ventricle. Malignancy cannot be excluded. Recommend IV contrast enhanced MRI brain. Global cerebral atrophy. Electronically signed by: Vincent Pandya MD 12/15/2024 10:21 AM EDT RP Lumbar Puncture Fluoroscopy 12/19/24 10:45 IMPRESSION: Successful fluoroscopic guided L3-4 interlaminar lumbar puncture. Electronically signed by: Kevin Barahona MD 12/19/2024 12:36 PM EDT RP Head/Neck CTA 12/21/24 10:29 IMPRESSION: No main cerebral artery occlusion or embolus. Irregular calcified plaque at the proximal right ICA at representing less than 50% stenosis. No dissection. Probable 2 mm aneurysm, right A2 segment. This critical test result is communicated to: Electronically signed by: Vincent Pandya MD 12/21/2024 12:02 PM EDT RP Medications Medications Current Medications Acetaminophen (Acetaminophen 325 Mg Tablet) 650 mg PO Q6H PRN PRN Reason: Headache/Pain, Scale 1-10 Al Hydroxide/Mg Hydroxide (Magnesium Hydrox/Alum Hydrox 30 Ml Oral.Susp) 30 ml PO Q6H PRN PRN Reason: Heartburn/Nausea Amlodipine Besylate (Amlodipine Besylate 10 Mg Tablet) 10 mg PO DAILY [facility]; Protocol Last Admin: 12/23/24 09:37 Dose: 10 mg Aspirin (Aspirin Enteric Coated 81 Mg Tablet.) 81 mg PO BEDTIME [facility] Last Admin: 12/23/24 20:41 Dose: 81 mg Atorvastatin Calcium (Atorvastatin Calcium 40 Mg Tablet) 40 mg PO BEDTIME [facility] Last Admin: 12/23/24 20:41 Dose: 40 mg Clonidine HCl (Clonidine Hcl 0.1 Mg Tablet) 0.1 mg PO BID PRN; Protocol PRN Reason: severe anxiety Last Admin: 12/18/24 20:33 Dose: 0.1 mg Divalproex Sodium (Divalproex Sodium 250 Mg Tablet.) 250 mg PO BID [facility] Last Admin: 12/23/24 20:41 Dose: 250 mg Emtricitabine/Tenofovir Alafenamide (Emtricitabine/Tenofov Alafenam Tablet) 1 tab PO DAILY [facility] Last Admin: 12/23/24 09:37 Dose: 1 tab Finasteride (Finasteride 5 Mg Tablet) 5 mg PO DAILY [facility] Last Admin: 12/23/24 09:36 Dose: 5 mg Hydralazine HCl (Hydralazine Hcl 25 Mg Tablet) 25 mg PO TID [facility]; Protocol Last Admin: 12/23/24 20:41 Dose: 25 mg Hydroxyzine HCl (Hydroxyzine Hcl 25 Mg Tablet) 25 mg PO Q6H PRN PRN Reason: Anxiety Last Admin: 12/17/24 20:48 Dose: 25 mg Lactase (Lactase Tablet) 1 tab PO Q4H PRN PRN Reason: with dairy Losartan Potassium (Losartan Potassium 50 Mg Tablet) 100 mg PO DAILY [facility]; Protocol Last Admin: 12/23/24 09:37 Dose: 100 mg Magnesium Hydroxide (Milk Of Magnesia 30 Ml Oral.Susp) 30 ml PO DAILY PRN PRN Reason: Constipation Last Admin: 12/19/24 21:38 Dose: 30 ml Melatonin (Melatonin 3 Mg Tablet) 6 mg PO BEDTIME [facility] Last Admin: 12/23/24 20:41 Dose: 6 mg Mirtazapine (Mirtazapine 7.5 Mg Tablet) 7.5 mg PO BEDTIME [facility] Last Admin: 12/23/24 20:41 Dose: 7.5 mg Olanzapine (Olanzapine 5 Mg Tablet) 5 mg PO BEDTIME [facility] Last Admin: 12/23/24 20:41 Dose: 5 mg Olanzapine (Olanzapine 2.5 Mg Tablet) 2.5 mg PO Q4H PRN PRN Reason: anxiety/restlessness Omeprazole (Omeprazole 20 Mg Capsule.Dr) 20 mg PO BEDTIME [facility] Last Admin: 12/23/24 20:42 Dose: 20 mg Tamsulosin HCl (Tamsulosin Hcl 0.4 Mg Capsule) 0.8 mg PO BEDTIME [facility] Last Admin: 12/23/24 20:41 Dose: 0.8 mg Tolterodine Tartrate (Tolterodine Tartrate La 4 Mg Cap.Er.24h) 4 mg PO DAILY [facility] Last Admin: 12/23/24 09:38 Dose: 4 mg Valacyclovir HCl (Valacyclovir Hcl 500 Mg Tablet) 500 mg PO DAILY [facility] Last Admin: 12/23/24 09:38 Dose: 500 mg Allergies Allergies Allergy/AdvReac Type Severity Reaction Status Date / Time No Known Allergies Allergy Verified 12/16/24 19:54 Assessment & Plan Assessment & Plan (1) Encephalopathy: Qualifiers: Encephalopathy type: unspecified encephalopathy Qualified Code(s): G93.40 - Encephalopathy, unspecified Status: Acute Code(s): G93.40 - Encephalopathy, unspecified Assessment and Plan: 74 years old man with acute change in mental status with psychiatric symptoms of paranoia and agitation and confusion with forgetfulness. This seems to be a relatively recent and according to him he was fine couple of months ago. This would suggest a rapidly progressive process. Differential diagnosis would include atypical encephalitis from an atypical infection, or an inflammatory process including autoimmune condition. It would also include possibility of Crutzfeld Lobito disease. His MRI of brain did reveal subtle abnormalities suggesting any of these possibilities. I recommend sending serum test for Lyme, syphilis, HIV, and blood test for sed rate. If serum or blood tests do not provide any lead, a lumbar puncture is needed to do testing on CSF. EEG is also recommended, which in some cases can also help. 12/23: continue current management and treatment plan. 12/24: consider increasing Depakote. (2) Hypertension: Qualifiers: Hypertension type: primary hypertension Qualified Code(s): I10 - Essential (primary) hypertension Status: Acute Code(s): I10 - Essential (primary) hypertension (3) Manic behavior: Status: Acute Code(s): F30.10 - Manic episode without psychotic symptoms, unspecified (4) OCD (obsessive compulsive disorder): Status: Acute Code(s): F42.9 - Obsessive-compulsive disorder, unspecified Plan Hyponatrenia monitor sodium urea anxious ruminating depakote trial olanzapine Reason for continued inpatient stay Substantial Risk for: inability to function and rapid decompensation Time Spent With Patient Time: Total time managing care of this patient today ____ minutes.
[2024-12-24 08:50] VITALS: BP 137/78; PULSE 78; RESP 18; TEMP 36.7; O2SAT 93
[2024-12-24] MEDS: Emtricitabine/Tenofov Alafenam TABLET 1 TAB PO (09:38)
[2024-12-24 11:04] VITALS: BMI 20.8
[2024-12-24 14:58] VITALS: BP 151/72; PULSE 80
[2024-12-24 20:00] VITALS: BP 148/80; PULSE 76; RESP 18; TEMP 36.7; O2SAT 93
[2024-12-24 21:13] VITALS: BP 148/80
[2024-12-24] MEDS: Aspirin Enteric Coated 81 MG TABLET.DR PO (21:15)
[2024-12-25 08:00] VITALS: BP 153/72; PULSE 76; RESP 18; TEMP 36.3; O2SAT 96
[2024-12-25 09:19] VITALS: BP 153/72
[2024-12-25] MEDS: Emtricitabine/Tenofov Alafenam TABLET 1 TAB PO (09:19)
[2024-12-25 09:20] VITALS: BP 153/72
--- NOTE | 2024-12-25 12:06 | P.PNPSI_ITS ---
Subjective Subjective Date of Service: 12/25/24 Reason For Visit: inpt,evelyn Interim History: Patient is very hyperactive. Restless. Pressured. Talkative. Disorganized thinking process. Perseverating on a nurse that is an asset to this program because she treated him well and another staff that treated me like an animal and asked me to go to my room. then says I respect people with badges... I am not a word person, I am good with numbers. He walks around with a piece of paper and he writes in it things he likes about the hospital. Wearing a pink robe. Talkative with patients. Grandiose. I have a few minutes so I can talk to you then I have to go because I have things to do... Dr. Verdin and my brother talk every day... No SI. Agrees to increase Depakote. Review of Systems Review of Systems nothing acute Yes all other systems are reviewed and are negative Mental Status Exam Mental Status Exam Narrative: Patient is alert dressed in a robe ambulating without difficulty. Patient with pressured speech obsessional repeating himself. Patient with more insight knows that he is not himself and not acting properly at times . He remains perseverative repeating himself over and over in having a hard time retaining information. Mood intensely anxious irritable if things are not done exactly the way that he feels he needs agreeable repeatedly to his brother being healthcare proxy. Thoughts disorganized difficulty focusing and retaining no SI or HI no hallucinations or delusional material Diagnostics Vital Signs (24Hr): Vital Signs - 24 hr 12/24/24 14:58 12/24/24 20:00 12/24/24 21:13 Temperature 98.1 F Pulse Rate 80 76 Respiratory Rate 18 Blood Pressure 151/72 H 148/80 H 148/80 H Pulse Oximetry 93 Oxygen Delivery Method Room Air 12/25/24 08:00 12/25/24 09:19 12/25/24 09:20 Temperature 97.4 F Pulse Rate 76 Respiratory Rate 18 Blood Pressure 153/72 H 153/72 H 153/72 H Pulse Oximetry 96 Oxygen Delivery Method Room Air 12/25/24 09:20 Temperature Pulse Rate Respiratory Rate Blood Pressure 153/72 H Pulse Oximetry Oxygen Delivery Method BMI result Body Mass Index 20.8 Labs 12/21/24 15:20 12/22/24 12:15 Imaging Radiology Impressions: ITS Impressions Brain MRI 12/15/24 09:35 IMPRESSION: Acute nonhemorrhagic ischemia involving the right precentral gyrus and left middle frontal gyrus concerning for embolic etiology. Extensive white matter disease likely related to small vessel occlusive disease. 5 mm nodular lesion, frontal horn right lateral ventricle. Malignancy cannot be excluded. Recommend IV contrast enhanced MRI brain. Global cerebral atrophy. Electronically signed by: Vincent Pandya MD 12/15/2024 10:21 AM EDT RP Lumbar Puncture Fluoroscopy 12/19/24 10:45 IMPRESSION: Successful fluoroscopic guided L3-4 interlaminar lumbar puncture. Electronically signed by: Kevin Barahona MD 12/19/2024 12:36 PM EDT RP Head/Neck CTA 12/21/24 10:29 IMPRESSION: No main cerebral artery occlusion or embolus. Irregular calcified plaque at the proximal right ICA at representing less than 50% stenosis. No dissection. Probable 2 mm aneurysm, right A2 segment. This critical test result is communicated to: Electronically signed by: Vincent Pandya MD 12/21/2024 12:02 PM EDT RP Medications Medications Current Medications Acetaminophen (Acetaminophen 325 Mg Tablet) 650 mg PO Q6H PRN PRN Reason: Headache/Pain, Scale 1-10 Al Hydroxide/Mg Hydroxide (Magnesium Hydrox/Alum Hydrox 30 Ml Oral.Susp) 30 ml PO Q6H PRN PRN Reason: Heartburn/Nausea Amlodipine Besylate (Amlodipine Besylate 10 Mg Tablet) 10 mg PO DAILY [facility]; Protocol Last Admin: 12/25/24 09:19 Dose: 10 mg Aspirin (Aspirin Enteric Coated 81 Mg Tablet.) 81 mg PO BEDTIME [facility] Last Admin: 12/24/24 21:15 Dose: 81 mg Atorvastatin Calcium (Atorvastatin Calcium 40 Mg Tablet) 40 mg PO BEDTIME [facility] Last Admin: 12/24/24 21:16 Dose: 40 mg Clonidine HCl (Clonidine Hcl 0.1 Mg Tablet) 0.1 mg PO BID PRN; Protocol PRN Reason: severe anxiety Last Admin: 12/18/24 20:33 Dose: 0.1 mg Divalproex Sodium (Divalproex Sodium 250 Mg Tablet.) 250 mg PO BID [facility] Last Admin: 12/25/24 09:18 Dose: 250 mg Emtricitabine/Tenofovir Alafenamide (Emtricitabine/Tenofov Alafenam Tablet) 1 tab PO DAILY [facility] Last Admin: 12/25/24 09:19 Dose: 1 tab Finasteride (Finasteride 5 Mg Tablet) 5 mg PO DAILY [facility] Last Admin: 12/25/24 09:17 Dose: 5 mg Hydralazine HCl (Hydralazine Hcl 25 Mg Tablet) 25 mg PO TID [facility]; Protocol Last Admin: 12/25/24 09:20 Dose: 25 mg Hydroxyzine HCl (Hydroxyzine Hcl 25 Mg Tablet) 25 mg PO Q6H PRN PRN Reason: Anxiety Last Admin: 12/24/24 17:05 Dose: 25 mg Lactase (Lactase Tablet) 1 tab PO Q4H PRN PRN Reason: with dairy Losartan Potassium (Losartan Potassium 50 Mg Tablet) 100 mg PO DAILY [facility]; Protocol Last Admin: 12/25/24 09:20 Dose: 100 mg Magnesium Hydroxide (Milk Of Magnesia 30 Ml Oral.Susp) 30 ml PO DAILY PRN PRN Reason: Constipation Last Admin: 12/19/24 21:38 Dose: 30 ml Melatonin (Melatonin 3 Mg Tablet) 6 mg PO BEDTIME [facility] Last Admin: 12/24/24 21:16 Dose: 6 mg Mirtazapine (Mirtazapine 7.5 Mg Tablet) 7.5 mg PO BEDTIME [facility] Last Admin: 12/24/24 21:16 Dose: 7.5 mg Olanzapine (Olanzapine 5 Mg Tablet) 5 mg PO BEDTIME [facility] Last Admin: 12/24/24 21:15 Dose: 5 mg Olanzapine (Olanzapine 2.5 Mg Tablet) 2.5 mg PO Q4H PRN PRN Reason: anxiety/restlessness Omeprazole (Omeprazole 20 Mg Capsule.Dr) 20 mg PO BEDTIME [facility] Last Admin: 12/24/24 21:15 Dose: 20 mg Tamsulosin HCl (Tamsulosin Hcl 0.4 Mg Capsule) 0.8 mg PO BEDTIME [facility] Last Admin: 12/24/24 21:13 Dose: 0.8 mg Tolterodine Tartrate (Tolterodine Tartrate La 4 Mg Cap.Er.24h) 4 mg PO DAILY [facility] Last Admin: 12/25/24 09:18 Dose: 4 mg Valacyclovir HCl (Valacyclovir Hcl 500 Mg Tablet) 500 mg PO DAILY [facility] Last Admin: 12/25/24 09:19 Dose: 500 mg Allergies Allergies Allergy/AdvReac Type Severity Reaction Status Date / Time No Known Allergies Allergy Verified 12/16/24 19:54 Assessment & Plan Assessment & Plan (1) Encephalopathy: Qualifiers: Encephalopathy type: unspecified encephalopathy Qualified Code(s): G 93.40 - Encephalopathy, unspecified Status: Acute Code(s): G93.40 - Encephalopathy, unspecified Assessment and Plan: 74 years old man with acute change in mental status with psychiatric symptoms of paranoia and agitation and confusion with forgetfulness. This seems to be a relatively recent and according to him he was fine couple of months ago. This would suggest a rapidly progressive process. Differential diagnosis would include atypical encephalitis from an atypical infection, or an inflammatory process including autoimmune condition. It would also include possibility of Crutzfeld Lobito disease. His MRI of brain did reveal subtle abnormalities suggesting any of these possibilities. I recommend sending serum test for Lyme, syphilis, HIV, and blood test for sed rate. If serum or blood tests do not provide any lead, a lumbar puncture is needed to do testing on CSF. EEG is also recommended, which in some cases can also help. (2) Hypertension: Qualifiers: Hypertension type: primary hypertension Qualified Code(s): I10 - Essential (primary) hypertension Status: Acute Code(s): I10 - Essential (primary) hypertension (3) Manic behavior: Status: Acute Code(s): F30.10 - Manic episode without psychotic symptoms, unspecified (4) OCD (obsessive compulsive disorder): Status: Acute Code(s): F42.9 - Obsessive-compulsive disorder, unspecified Plan Patient with ongoing obsessional thoughts intense pressured speech racing thoughts. Mirtazapine 7.5 mg at bedtime see if help with insomnia and obsessional anxiety continue olanzapine 5 mg at bedtime with a 2.5 mg prn targeting agitation obsessional thoughts anxiety. Still do not have results from lumbar puncture which may suggest other causes besides vascular brain changes the patient's symptoms 12/25/24: Increase Depakote to 375 mg BID. Reason for continued inpatient stay Substantial Risk for: inability to function and rapid decompensation Time Spent With Patient Time: Total time managing care of this patient today ____ minutes.
[2024-12-25 14:36] VITALS: BP 166/72
[2024-12-25 20:02] VITALS: BP 162/84; PULSE 73; RESP 16; TEMP 36.3; O2SAT 92
[2024-12-25 20:05] VITALS: BP 162/84
[2024-12-25] MEDS: D 375 MG PO (20:05)
[2024-12-25] MEDS: Aspirin Enteric Coated 81 MG TABLET.DR PO (20:07)
[2024-12-26 06:14] VITALS: BP 148/73; PULSE 70; RESP 16; TEMP 36.4; O2SAT 95
[2024-12-26 08:50] VITALS: BP 139/67; PULSE 78; RESP 16; TEMP 37; O2SAT 93
[2024-12-26] MEDS: Emtricitabine/Tenofov Alafenam TABLET 1 TAB PO (09:45)
[2024-12-26] MEDS: D 375 MG PO (09:47)
[2024-12-26 14:59] VITALS: BP 125/70; PULSE 71
--- NOTE | 2024-12-26 15:42 | HO.PSYCHPN ---
Subjective Subjective Date of Service: 12/26/24 Reason For Visit: inpt,evelyn Interim History: hyperverbal. allows his mood is labile, agrees to increase VPA to 500 BID. Mental Status Exam Mental Status Exam Narrative: Patient is alert dressed in a robe ambulating without difficulty. Patient with rapid speech increased in amount, obsessional repeating himself. Patient with more insight knows that he is not himself and not acting properly at times . He remains perseverative repeating himself over and over in having a hard time retaining information. Mood intensely anxious. Thoughts disorganized difficulty focusing and retaining no SI or HI no hallucinations or delusional material Diagnostics Vital Signs (24Hr): Vital Signs - 24 hr 12/25/24 20:02 12/25/24 20:05 12/26/24 06:14 Temperature 97.3 F 97.6 F Pulse Rate 73 70 Respiratory Rate 16 16 Blood Pressure 162/84 H 162/84 H 148/73 H Pulse Oximetry 92 95 Oxygen Delivery Method Room Air Room Air 12/26/24 08:50 12/26/24 14:59 Temperature 98.6 F Pulse Rate 78 71 Respiratory Rate 16 Blood Pressure 139/67 125/70 Pulse Oximetry 93 Oxygen Delivery Method Room Air BMI result Body Mass Index 20.8 Labs 12/21/24 15:20 12/22/24 12:15 Imaging Radiology Impressions: ITS Impressions Brain MRI 12/15/24 09:35 IMPRESSION: Acute nonhemorrhagic ischemia involving the right precentral gyrus and left middle frontal gyrus concerning for embolic etiology. Extensive white matter disease likely related to small vessel occlusive disease. 5 mm nodular lesion, frontal horn right lateral ventricle. Malignancy cannot be excluded. Recommend IV contrast enhanced MRI brain. Global cerebral atrophy. Electronically signed by: Vincent Pandya MD 12/15/2024 10:21 AM EDT RP Lumbar Puncture Fluoroscopy 12/19/24 10:45 IMPRESSION: Successful fluoroscopic guided L3-4 interlaminar lumbar puncture. Electronically signed by: Kevin Barahona MD 12/19/2024 12:36 PM EDT RP Head/Neck CTA 12/21/24 10:29 IMPRESSION: No main cerebral artery occlusion or embolus. Irregular calcified plaque at the proximal right ICA at representing less than 50% stenosis. No dissection. Probable 2 mm aneurysm, right A2 segment. This critical test result is communicated to: Electronically signed by: Vincent Pandya MD 12/21/2024 12:02 PM EDT Medications Medications Current Medications Acetaminophen (Acetaminophen 325 Mg Tablet) 650 mg PO Q6H PRN PRN Reason: Headache/Pain, Scale 1-10 Al Hydroxide/Mg Hydroxide (Magnesium Hydrox/Alum Hydrox 30 Ml Oral.Susp) 30 ml PO Q6H PRN PRN Reason: Heartburn/Nausea Amlodipine Besylate (Amlodipine Besylate 10 Mg Tablet) 10 mg PO DAILY [facility]; Protocol Last Admin: 12/26/24 09:47 Dose: 10 mg Aspirin (Aspirin Enteric Coated 81 Mg Tablet.Dr) 81 mg PO BEDTIME [facility] Last Admin: 12/25/24 20:07 Dose: 81 mg Atorvastatin Calcium (Atorvastatin Calcium 40 Mg Tablet) 40 mg PO BEDTIME [facility] Last Admin: 12/25/24 20:05 Dose: 40 mg Clonidine HCl (Clonidine Hcl 0.1 Mg Tablet) 0.1 mg PO BID PRN; Protocol PRN Reason: severe anxiety Last Admin: 12/18/24 20:33 Dose: 0.1 mg Divalproex Sodium (D) 375 mg PO BID [facility] Last Admin: 12/26/24 09:47 Dose: 375 mg Emtricitabine/Tenofovir Alafenamide (Emtricitabine/Tenofov Alafenam Tablet) 1 tab PO DAILY [facility] Last Admin: 12/26/24 09:45 Dose: 1 tab Finasteride (Finasteride 5 Mg Tablet) 5 mg PO DAILY [facility] Last Admin: 12/26/24 09:48 Dose: 5 mg Hydralazine HCl (Hydralazine Hcl 25 Mg Tablet) 25 mg PO TID [facility]; Protocol Last Admin: 12/26/24 15:00 Dose: 25 mg Hydroxyzine HCl (Hydroxyzine Hcl 25 Mg Tablet) 25 mg PO Q6H PRN PRN Reason: Anxiety Last Admin: 12/24/24 17:05 Dose: 25 mg Lactase (Lactase Tablet) 1 tab PO Q4H PRN PRN Reason: with dairy Last Admin: 12/26/24 15:00 Dose: 1 tab Losartan Potassium (Losartan Potassium 50 Mg Tablet) 100 mg PO DAILY [facility]; Protocol Last Admin: 12/26/24 09:46 Dose: 100 mg Magnesium Hydroxide (Milk Of Magnesia 30 Ml Oral.Susp) 30 ml PO DAILY PRN PRN Reason: Constipation Last Admin: 12/19/24 21:38 Dose: 30 ml Melatonin (Melatonin 3 Mg Tablet) 6 mg PO BEDTIME [facility] Last Admin: 12/25/24 20:05 Dose: 6 mg Mirtazapine (Mirtazapine 7.5 Mg Tablet) 7.5 mg PO BEDTIME [facility] Last Admin: 12/25/24 20:05 Dose: 7.5 mg Olanzapine (Olanzapine 5 Mg Tablet) 5 mg PO BEDTIME [facility] Last Admin: 12/25/24 20:06 Dose: 5 mg Olanzapine (Olanzapine 2.5 Mg Tablet) 2.5 mg PO Q4H PRN PRN Reason: anxiety/restlessness Last Admin: 12/26/24 12:23 Dose: 2.5 mg Omeprazole (Omeprazole 20 Mg Capsule.Dr) 20 mg PO BEDTIME [facility] Last Admin: 12/25/24 20:06 Dose: 20 mg Tamsulosin HCl (Tamsulosin Hcl 0.4 Mg Capsule) 0.8 mg PO BEDTIME [facility] Last Admin: 12/25/24 20:06 Dose: 0.8 mg Tolterodine Tartrate (Tolterodine Tartrate La 4 Mg Cap.Er.24h) 4 mg PO DAILY [facility] Last Admin: 12/26/24 09:45 Dose: 4 mg Valacyclovir HCl (Valacyclovir Hcl 500 Mg Tablet) 500 mg PO DAILY [facility] Last Admin: 12/26/24 09:48 Dose: 500 mg Allergies Allergies Allergy/AdvReac Type Severity Reaction Status Date / Time No Known Allergies Allergy Verified 12/16/24 19:54 Assessment & Plan Assessment & Plan (1) Encephalopathy: Qualifiers: Encephalopathy type: unspecified encephalopathy Qualified Code(s): G93.40 - Encephalopathy, unspecified Status: Acute Code(s): G93.40 - Encephalopathy, unspecified Assessment and Plan: 74 years old man with acute change in mental status with psychiatric symptoms of paranoia and agitation and confusion with forgetfulness. This seems to be a relatively recent and according to him he was fine couple of months ago. This would suggest a rapidly progressive process. Differential diagnosis would include atypical encephalitis from an atypical infection, or an inflammatory process including autoimmune condition. It would also include possibility of Crutzfeld Lobito disease. His MRI of brain did reveal subtle abnormalities suggesting any of these possibilities. I recommend sending serum test for Lyme, syphilis, HIV, and blood test for sed rate. If serum or blood tests do not provide any lead, a lumbar puncture is needed to do testing on CSF. EEG is also recommended, which in some cases can also help. (2) Hypertension: Qualifiers: Hypertension type: primary hypertension Qualified Code(s): I10 - Essential (primary) hypertension Status: Acute Code(s): I10 - Essential (primary) hypertension (3) Manic behavior: Status: Acute Code(s): F30.10 - Manic episode without psychotic symptoms, unspecified (4) OCD (obsessive compulsive disorder): Status: Acute Code(s): F42.9 - Obsessive-compulsive disorder, unspecified Plan Patient with ongoing obsessional thoughts intense pressured speech racing thoughts. Mirtazapine 7.5 mg at bedtime see if help with insomnia and obsessional anxiety continue olanzapine 5 mg at bedtime with a 2.5 mg prn targeting agitation obsessional thoughts anxiety. Still do not have results from lumbar puncture which may suggest other causes besides vascular brain changes the patient's symptoms 12/25/24: Increase Depakote to 375 mg BID. 12/26: aware his mood is labile, agrees to increase VPA dosing to 500 BID. hyperverbal, anxious. Reason for continued inpatient stay Substantial Risk for: inability to function and rapid decompensation Time Spent With Patient Time: Total time managing care of this patient today __25__ minutes.
[2024-12-26 20:00] VITALS: BP 167/89; PULSE 70; RESP 16; TEMP 36.9; O2SAT 96
[2024-12-26 20:24] VITALS: BP 167/89
[2024-12-26] MEDS: Aspirin Enteric Coated 81 MG TABLET.DR PO (20:24)
[2024-12-26] MEDS: Divalproex Sodium Sprinkles 125 MG CAP.DR.SPR 500 MG PO (20:24)
[2024-12-27 06:17] VITALS: BP 126/65; PULSE 72
[2024-12-27 08:50] VITALS: BP 126/67; PULSE 79; RESP 18; TEMP 36.6; O2SAT 93
[2024-12-27] MEDS: Divalproex Sodium Sprinkles 125 MG CAP.DR.SPR 500 MG PO ×2 (09:44→19:59)
[2024-12-27] MEDS: Emtricitabine/Tenofov Alafenam TABLET 1 TAB PO (09:45)
[2024-12-27 11:00] VITALS: BMI 21.2
[2024-12-27 14:25] VITALS: BP 108/56; PULSE 90
--- NOTE | 2024-12-27 14:47 | PC.NURSE ---
RN took pt's B/P at 1425 for his scheduled 1500 25mg Hydralazine. B/P was 108/56. RN messaged Dr. Verdin via [employer] and provider instructed the RN to hold the medication.
[2024-12-27 19:57] VITALS: BP 168/82; PULSE 71; RESP 16; TEMP 36.6; O2SAT 92
[2024-12-27 20:00] VITALS: BP 168/82
[2024-12-27] MEDS: Aspirin Enteric Coated 81 MG TABLET.DR PO (20:00)
--- NOTE | 2024-12-27 22:02 | HO.PSYCHPN ---
Subjective Subjective Date of Service: 12/27/24 Reason For Visit: inpt,evelyn Subjective Notes: Conditional Voluntary Healthcare Proxy: Yes Interim History: Patient remains expansive disorganized mood somewhat less anxious . Continues to be pressured Medication Compliance: Yes Mental Status Exam Mental Status Exam Narrative: Patient is alert dressed in a robe ambulating without difficulty. Patient with rapid speech increased in amount, obsessional repeating himself. Patient with more insight knows that he is not himself and not acting properly at times . He remains perseverative repeating himself over and over in having a hard time retaining information. Mood intensely anxious. Thoughts disorganized difficulty focusing and retaining no SI or HI no hallucinations or delusional material Diagnostics Vital Signs (24Hr): Vital Signs - 24 hr 12/27/24 06:17 12/27/24 08:50 12/27/24 14:25 Temperature 97.9 F Pulse Rate 72 79 90 Respiratory Rate 18 Blood Pressure 126/65 126/67 108/56 L Pulse Oximetry 93 Oxygen Delivery Method Room Air 12/27/24 19:57 12/27/24 20:00 Temperature 97.9 F Pulse Rate 71 Respiratory Rate 16 Blood Pressure 168/82 H 168/82 H Pulse Oximetry 92 Oxygen Delivery Method Room Air BMI result Body Mass Index 21.2 Labs 12/21/24 15:20 12/22/24 12:15 Imaging Radiology Impressions: ITS Impressions Brain MRI 12/15/24 09:35 IMPRESSION: Acute nonhemorrhagic ischemia involving the right precentral gyrus and left middle frontal gyrus concerning for embolic etiology. Extensive white matter disease likely related to small vessel occlusive disease. 5 mm nodular lesion, frontal horn right lateral ventricle. Malignancy cannot be excluded. Recommend IV contrast enhanced MRI brain. Global cerebral atrophy. Electronically signed by: Vincent Pandya MD 12/15/2024 10:21 AM EDT RP Lumbar Puncture Fluoroscopy 12/19/24 10:45 IMPRESSION: Successful fluoroscopic guided L3-4 interlaminar lumbar puncture. Electronically signed by: Kevin Barahona MD 12/19/2024 12:36 PM EDT RP Head/Neck CTA 12/21/24 10:29 IMPRESSION: No main cerebral artery occlusion or embolus. Irregular calcified plaque at the proximal right ICA at representing less than 50% stenosis. No dissection. Probable 2 mm aneurysm, right A2 segment. This critical test result is communicated to: Electronically signed by: Vincent Pandya MD 12/21/2024 12:02 PM EDT Medications Medications Current Medications Acetaminophen (Acetaminophen 325 Mg Tablet) 650 mg PO Q6H PRN PRN Reason: Headache/Pain, Scale 1-10 Al Hydroxide/Mg Hydroxide (Magnesium Hydrox/Alum Hydrox 30 Ml Oral.Susp) 30 ml PO Q6H PRN PRN Reason: Heartburn/Nausea Amlodipine Besylate (Amlodipine Besylate 10 Mg Tablet) 10 mg PO DAILY [facility]; Protocol Last Admin: 12/27/24 09:46 Dose: 10 mg Aspirin (Aspirin Enteric Coated 81 Mg Tablet.) 81 mg PO BEDTIME [facility] Last Admin: 12/27/24 20:00 Dose: 81 mg Atorvastatin Calcium (Atorvastatin Calcium 40 Mg Tablet) 40 mg PO BEDTIME [facility] Last Admin: 12/27/24 20:00 Dose: 40 mg Clonidine HCl (Clonidine Hcl 0.1 Mg Tablet) 0.1 mg PO BID PRN; Protocol PRN Reason: severe anxiety Last Admin: 12/18/24 20:33 Dose: 0.1 mg Divalproex Sodium (Divalproex Sodium Sprinkles 125 Mg Spr) 500 mg PO BID [facility] Last Admin: 12/27/24 19:59 Dose: 500 mg Emtricitabine/Tenofovir Alafenamide (Emtricitabine/Tenofov Alafenam Tablet) 1 tab PO DAILY [facility] Last Admin: 12/27/24 09:45 Dose: 1 tab Finasteride (Finasteride 5 Mg Tablet) 5 mg PO DAILY [facility] Last Admin: 12/27/24 09:46 Dose: 5 mg Hydralazine HCl (Hydralazine Hcl 25 Mg Tablet) 25 mg PO TID [facility]; Protocol Last Admin: 12/27/24 20:00 Dose: 25 mg Hydroxyzine HCl (Hydroxyzine Hcl 25 Mg Tablet) 25 mg PO Q6H PRN PRN Reason: Anxiety Last Admin: 12/27/24 18:23 Dose: 25 mg Lactase (Lactase Tablet) 1 tab PO Q4H PRN PRN Reason: with dairy Last Admin: 12/26/24 15:00 Dose: 1 tab Losartan Potassium (Losartan Potassium 50 Mg Tablet) 100 mg PO DAILY [facility]; Protocol Last Admin: 12/27/24 09:43 Dose: 100 mg Magnesium Hydroxide (Milk Of Magnesia 30 Ml Oral.Susp) 30 ml PO DAILY PRN PRN Reason: Constipation Last Admin: 12/19/24 21:38 Dose: 30 ml Melatonin (Melatonin 3 Mg Tablet) 6 mg PO BEDTIME [facility] Last Admin: 12/27/24 20:00 Dose: 6 mg Olanzapine (Olanzapine 5 Mg Tablet) 5 mg PO BEDTIME [facility] Last Admin: 12/27/24 20:00 Dose: 5 mg Olanzapine (Olanzapine 2.5 Mg Tablet) 2.5 mg PO Q4H PRN PRN Reason: anxiety/restlessness Last Admin: 12/26/24 12:23 Dose: 2.5 mg Olanzapine (Olanzapine 2.5 Mg Tablet) 2.5 mg PO DAILY [facility] Last Admin: 12/27/24 11:31 Dose: 2.5 mg Omeprazole (Omeprazole 20 Mg Capsule.Dr) 20 mg PO BEDTIME [facility] Last Admin: 12/27/24 20:00 Dose: 20 mg Tamsulosin HCl (Tamsulosin Hcl 0.4 Mg Capsule) 0.8 mg PO BEDTIME [facility] Last Admin: 12/27/24 20:00 Dose: 0.8 mg Tolterodine Tartrate (Tolterodine Tartrate La 4 Mg Cap.Er.24h) 4 mg PO DAILY [facility] Last Admin: 12/27/24 09:46 Dose: 4 mg Valacyclovir HCl (Valacyclovir Hcl 500 Mg Tablet) 500 mg PO DAILY [facility] Last Admin: 12/27/24 09:45 Dose: 500 mg Allergies Allergies Allergy/AdvReac Type Severity Reaction Status Date / Time No Known Allergies Allergy Verified 12/16/24 19:54 Assessment & Plan Assessment & Plan (1) Encephalopathy: Qualifiers: Encephalopathy type: unspecified encephalopathy Qualified Code(s): G93.40 - Encephalopathy, unspecified Status: Acute Code(s): G93.40 - Encephalopathy, unspecified Assessment and Plan: 74 years old man with acute change in mental status with psychiatric symptoms of paranoia and agitation and confusion with forgetfulness. This seems to be a relatively recent and according to him he was fine couple of months ago. This would suggest a rapidly progressive process. Differential diagnosis would include atypical encephalitis from an atypical infection, or an inflammatory process including autoimmune condition. It would also include possibility of Crutzfeld Lobito disease. His MRI of brain did reveal subtle abnormalities suggesting any of these possibilities. I recommend sending serum test for Lyme, syphilis, HIV, and blood test for sed rate. If serum or blood tests do not provide any lead, a lumbar puncture is needed to do testing on CSF. EEG is also recommended, which in some cases can also help. (2) Hypertension: Qualifiers: Hypertension type: primary hypertension Qualified Code(s): I10 - Essential (primary) hypertension Status: Acute Code(s): I10 - Essential (primary) hypertension (3) Manic behavior: Status: Acute Code(s): F30.10 - Manic episode without psychotic symptoms, unspecified (4) OCD (obsessive compulsive disorder): Status: Acute Code(s): F42.9 - Obsessive-compulsive disorder, unspecified Plan Patient with ongoing obsessional thoughts intense pressured speech racing thoughts. Mirtazapine 7.5 mg at bedtime see if help with insomnia and obsessional anxiety continue olanzapine 5 mg at bedtime with a 2.5 mg prn targeting agitation obsessional thoughts anxiety. Still do not have results from lumbar puncture which may suggest other causes besides vascular brain changes the patient's symptoms 12/25/24: Increase Depakote to 375 mg BID. 12/26: aware his mood is labile, agrees to increase VPA dosing to 500 BID. hyperverbal, anxious. 12/27/2024 Patient continues hyperverbal limited reasoning and executive function hard for him to stay on topic. Check Depakote level Creutzfeldt-Oseas pending for tomorrow then should have results regarding lumbar puncture. Increase a.m. olanzapine to 5 mg monitor gait Guardian/Caregiver educated on: diagnosis, medication risk/benefits and medical condition Informed Consent: understands (Patient's brother gene healthcare proxy) Reason for continued inpatient stay Substantial Risk for: inability to function, rapid decompensation and med/psych decompensation Time Spent With Patient Time: Total time managing care of this patient today ____ minutes.
[2024-12-28 08:00] LABS: Ammonia 20 umol/L (13-55)
[2024-12-28 08:09] LABS: Alanine Aminotransferase 23 U/L (0-40); Albumin Level 4.4 g/dL (3.5-5.0); Alkaline Phosphatase 55 U/L (39-117); Anion Gap 12 (12-20); Aspartate Amino Transferase 24 U/L (5-37); Blood Urea Nitrogen 27 mg/dL (9-16); Calcium 9.6 mg/dL (8.4-10.2); Carbon Dioxide 25 mmol/L (22-29); Chloride 102 mmol/L (96-108); Creatinine Clr Calc Pharmacy 59.7; Estimated Glomerular Filt Rate > 60; Potassium 3.9 mmol/L (3.3-5.1); Sodium 135 mmol/L (135-145); Total Protein 6.9 g/dL (6.5-8.0)
[2024-12-28 08:43] VITALS: BP 135/69; PULSE 76; RESP 18; TEMP 36.4; O2SAT 96
[2024-12-28] MEDS: Divalproex Sodium Sprinkles 125 MG CAP.DR.SPR 500 MG PO ×2 (08:51→19:44)
[2024-12-28] MEDS: Emtricitabine/Tenofov Alafenam TABLET 1 TAB PO (08:52)
[2024-12-28 13:19] VITALS: BMI 21.4
[2024-12-28 14:00] LABS: Oligoclonal Serum Yes
[2024-12-28 14:29] VITALS: BP 148/74
[2024-12-28 19:42] VITALS: BP 172/86; PULSE 75; RESP 16; TEMP 36.6; O2SAT 94
[2024-12-28] MEDS: Aspirin Enteric Coated 81 MG TABLET.DR PO (19:43)
[2024-12-28 19:44] VITALS: BP 172/86
--- NOTE | 2024-12-28 22:10 | HO.PSYCHPN ---
Subjective Subjective Date of Service: 12/28/24 Reason For Visit: inpt,evelyn Subjective Notes: Conditional Voluntary Healthcare Proxy: Yes Interim History: Patient seen hospital management chart reviewed CJ he reported as negative on lumbar puncture. Patient social engaged on the unit somewhat less pressured Mental Status Exam Mental Status Exam Narrative: Patient is alert dressed in a robe ambulating without difficulty. Patient with rapid speech somewhat decreasing in intensity and velocity, some decrease in obsessional repetition Patient with more insight knows that he is not himself and not acting properly at times . Mood somewhat expansive no SI or HI no hallucinations or delusional material impulse control intact Diagnostics Vital Signs (24Hr): Vital Signs - 24 hr 12/28/24 08:43 12/28/24 14:29 12/28/24 19:42 Temperature 97.5 F 97.8 F Pulse Rate 76 75 Respiratory Rate 18 16 Blood Pressure 135/69 148/74 H 172/86 H Pulse Oximetry 96 94 Oxygen Delivery Method Room Air Room Air 12/28/24 19:44 Temperature Pulse Rate Respiratory Rate Blood Pressure 172/86 H Pulse Oximetry Oxygen Delivery Method BMI result Body Mass Index 21.4 Labs 12/21/24 15:20 12/28/24 07:42 Labs: Laboratory Results - last 48 hr 12/19/24 12/28/24 12/28/24 11:15 07:41 07:42 Sodium 135 Potassium 3.9 D Chloride 102 Carbon Dioxide 25 Anion Gap 12 BUN 27 H Creatinine 0.97 Estim Creat Clear Calc 59.7 Estimated GFR > 60 Fasting Glucose 79 Calcium 9.6 D Total Bilirubin 0.9 AST 24 ALT 23 Alkaline Phosphatase 55 Ammonia 20 Total Protein 6.9 Albumin 4.4 CSF Tube Number 1 CSF Appearance (b) CSF Glucose 64 CSF Total Protein 38.1 CSF C.neoform/gat PCR Not Detected CSF CMV DNA (PCR) Not Detected CSF Enterovirus (PCR) Not Detected CSF E. coli K1 (PCR) Not Detected CSF H. influenzae (PCR) Not Detected CSF HSV I (PCR) Not Detected CSF HSV II (PCR) Not Detected CSF HHV 6 (PCR) Not Detected CSF L.monocytogenes PCR Not Detected CSF N. meningitidis PCR Not Detected CSF Parechovirus (PCR) Not Detected CSF S. agalactiae (PCR) Not Detected CSF S. pneumoniae (PCR) Not Detected CSF VZV (PCR) Not Detected Valproic Acid 62.6 Ref Lab Test Result SEE NOTE Imaging Radiology Impressions: ITS Impressions Brain MRI 12/15/24 09:35 IMPRESSION: Acute nonhemorrhagic ischemia involving the right precentral gyrus and left middle frontal gyrus concerning for embolic etiology. Extensive white matter disease likely related to small vessel occlusive disease. 5 mm nodular lesion, frontal horn right lateral ventricle. Malignancy cannot be excluded. Recommend IV contrast enhanced MRI brain. Global cerebral atrophy. Electronically signed by: Vincent Pandya MD 12/15/2024 10:21 AM EDT RP Lumbar Puncture Fluoroscopy 12/19/24 10:45 IMPRESSION: Successful fluoroscopic guided L3-4 interlaminar lumbar puncture. Electronically signed by: Kevin Barahona MD 12/19/2024 12:36 PM EDT RP Head/Neck CTA 12/21/24 10:29 IMPRESSION: No main cerebral artery occlusion or embolus. Irregular calcified plaque at the proximal right ICA at representing less than 50% stenosis. No dissection. Probable 2 mm aneurysm, right A2 segment. This critical test result is communicated to: Electronically signed by: Vincent Pandya MD 12/21/2024 12:02 PM EDT RP Medications Medications Current Medications Acetaminophen (Acetaminophen 325 Mg Tablet) 650 mg PO Q6H PRN PRN Reason: Headache/Pain, Scale 1-10 Al Hydroxide/Mg Hydroxide (Magnesium Hydrox/Alum Hydrox 30 Ml Oral.Susp) 30 ml PO Q6H PRN PRN Reason: Heartburn/Nausea Amlodipine Besylate (Amlodipine Besylate 10 Mg Tablet) 10 mg PO DAILY [facility]; Protocol Last Admin: 12/28/24 08:53 Dose: 10 mg Aspirin (Aspirin Enteric Coated 81 Mg Tablet.Dr) 81 mg PO BEDTIME [facility] Last Admin: 12/28/24 19:43 Dose: 81 mg Atorvastatin Calcium (Atorvastatin Calcium 40 Mg Tablet) 40 mg PO BEDTIME [facility] Last Admin: 12/28/24 19:44 Dose: 40 mg Clonidine HCl (Clonidine Hcl 0.1 Mg Tablet) 0.1 mg PO BID PRN; Protocol PRN Reason: severe anxiety Last Admin: 12/18/24 20:33 Dose: 0.1 mg Divalproex Sodium (Divalproex Sodium Sprinkles 125 Mg ) 500 mg PO BID [facility] Last Admin: 12/28/24 19:44 Dose: 500 mg Emtricitabine/Tenofovir Alafenamide (Emtricitabine/Tenofov Alafenam Tablet) 1 tab PO DAILY [facility] Last Admin: 12/28/24 08:52 Dose: 1 tab Finasteride (Finasteride 5 Mg Tablet) 5 mg PO DAILY [facility] Last Admin: 12/28/24 08:50 Dose: 5 mg Hydralazine HCl (Hydralazine Hcl 25 Mg Tablet) 25 mg PO TID [facility]; Protocol Last Admin: 12/28/24 19:44 Dose: 25 mg Hydroxyzine HCl (Hydroxyzine Hcl 25 Mg Tablet) 25 mg PO Q6H PRN PRN Reason: Anxiety Last Admin: 12/27/24 18:23 Dose: 25 mg Lactase (Lactase Tablet) 1 tab PO Q4H PRN PRN Reason: with dairy Last Admin: 12/26/24 15:00 Dose: 1 tab Losartan Potassium (Losartan Potassium 50 Mg Tablet) 100 mg PO DAILY [facility]; Protocol Last Admin: 12/28/24 08:53 Dose: 100 mg Magnesium Hydroxide (Milk Of Magnesia 30 Ml Oral.Susp) 30 ml PO DAILY PRN PRN Reason: Constipation Last Admin: 12/19/24 21:38 Dose: 30 ml Melatonin (Melatonin 3 Mg Tablet) 6 mg PO BEDTIME [facility] Last Admin: 12/28/24 19:44 Dose: 6 mg Olanzapine (Olanzapine 5 Mg Tablet) 5 mg PO BEDTIME [facility] Last Admin: 12/28/24 19:43 Dose: 5 mg Olanzapine (Olanzapine 2.5 Mg Tablet) 2.5 mg PO Q4H PRN PRN Reason: anxiety/restlessness Last Admin: 12/26/24 12:23 Dose: 2.5 mg Olanzapine (Olanzapine 5 Mg Tablet) 5 mg PO DAILY [facility] Omeprazole (Omeprazole 20 Mg Capsule.) 20 mg PO BEDTIME [facility] Last Admin: 12/28/24 19:43 Dose: 20 mg Tamsulosin HCl (Tamsulosin Hcl 0.4 Mg Capsule) 0.8 mg PO BEDTIME [facility] Last Admin: 12/28/24 19:43 Dose: 0.8 mg Tolterodine Tartrate (Tolterodine Tartrate La 4 Mg Cap.Er.24h) 4 mg PO DAILY [facility] Last Admin: 12/28/24 08:52 Dose: 4 mg Valacyclovir HCl (Valacyclovir Hcl 500 Mg Tablet) 500 mg PO DAILY [facility] Last Admin: 12/28/24 08:53 Dose: 500 mg Allergies Allergies Allergy/AdvReac Type Severity Reaction Status Date / Time No Known Allergies Allergy Verified 12/16/24 19:54 Assessment & Plan Assessment & Plan (1) Encephalopathy: Qualifiers: Encephalopathy type: unspecified encephalopathy Qualified Code(s): G93.40 - Encephalopathy, unspecified Status: Acute Code(s): G93.40 - Encephalopathy, unspecified Assessment and Plan: 74 years old man with acute change in mental status with psychiatric symptoms of paranoia and agitation and confusion with forgetfulness. This seems to be a relatively recent and according to him he was fine couple of months ago. This would suggest a rapidly progressive process. Differential diagnosis would include atypical encephalitis from an atypical infection, or an inflammatory process including autoimmune condition. It would also include possibility of Crutzfeld Lobito disease. His MRI of brain did reveal subtle abnormalities suggesting any of these possibilities. I recommend sending serum test for Lyme, syphilis, HIV, and blood test for sed rate. If serum or blood tests do not provide any lead, a lumbar puncture is needed to do testing on CSF. EEG is also recommended, which in some cases can also help. (2) Hypertension: Qualifiers: Hypertension type: primary hypertension Qualified Code(s): I10 - Essential (primary) hypertension Status: Acute Code(s): I10 - Essential (primary) hypertension (3) Manic behavior: Status: Acute Code(s): F30.10 - Manic episode without psychotic symptoms, unspecified (4) OCD (obsessive compulsive disorder): Status: Acute Code(s): F42.9 - Obsessive-compulsive disorder, unspecified Plan Patient with ongoing obsessional thoughts intense pressured speech racing thoughts. Mirtazapine 7.5 mg at bedtime see if help with insomnia and obsessional anxiety continue olanzapine 5 mg at bedtime with a 2.5 mg prn targeting agitation obsessional thoughts anxiety. Still do not have results from lumbar puncture which may suggest other causes besides vascular brain changes the patient's symptoms 12/25/24: Increase Depakote to 375 mg BID. 12/26: aware his mood is labile, agrees to increase VPA dosing to 500 BID. hyperverbal, anxious. 12/27/2024 Patient continues hyperverbal limited reasoning and executive function hard for him to stay on topic. Check Depakote level Creutzfeldt-Oseas pending for tomorrow then should have results regarding lumbar puncture. Increase a.m. olanzapine to 5 mg monitor gait 12/28/2024 CJD negative some improvement noted with Depakote and olanzapine less pressured improved anxiety somewhat better able to engage in linear conversation eating and drinking okay flesh pressure remains intermittently elevated will again ask hospitalist service to look at this has been difficult to control Further labs from lumbar puncture pending d/c planning Informed Consent: further education needed Reason for continued inpatient stay Substantial Risk for: inability to function and rapid decompensation Time Spent With Patient Time: Total time managing care of this patient today 30____ minutes.
[2024-12-29 03:19] VITALS: BP 145/73; PULSE 73
[2024-12-29 08:55] VITALS: BP 137/73; PULSE 72; RESP 18; TEMP 36.6; O2SAT 96
[2024-12-29] MEDS: Emtricitabine/Tenofov Alafenam TABLET 1 TAB PO (08:58)
[2024-12-29] MEDS: Divalproex Sodium Sprinkles 125 MG CAP.DR.SPR 500 MG PO ×2 (09:05→20:30)
[2024-12-29 14:33] VITALS: BP 117/60; PULSE 70
[2024-12-29 20:19] VITALS: BP 181/94; PULSE 82; RESP 16; TEMP 36.5; O2SAT 92
[2024-12-29 20:30] VITALS: BP 181/94
[2024-12-29] MEDS: Aspirin Enteric Coated 81 MG TABLET.DR PO (20:30)
--- NOTE | 2024-12-29 23:10 | P.PNPSI_ITS ---
Subjective Subjective Date of Service: 12/29/24 Reason For Visit: inpt,evelyn Subjective Notes: Conditional Voluntary Healthcare Proxy: Yes Interim History: Patient Creutzfeldt-Oseas negative awaiting results from lumbar puncture. Patient started on very low-dose alprazolam p.r.n. continues with racing thoughts disorganization mood from dysphoric to irritable Guera some periods of less agitation with combination of Depakote olanzapine. 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 Patient does state he had tests apnea over the past few months and was negative Attending Groups: Intermittent Review of Systems Medical Review of Systems: unchanged Mental Status Exam Mental Status Exam Narrative: Patient is alert dressed in a robe ambulating without difficulty. Patient with rapid speech somewhat decreasing in intensity and velocity, some decrease in obsessional repetition Patient with more insight knows that he is not himself and not acting properly at times . Mood somewhat expansive at times irritable. Difficulty with focus tends to ramble or obsessional focused on the detail marked difficulty with reasoning and executive functioning no SI or HI no hallucinations or delusional material impulse control intact Diagnostics Vital Signs (24Hr): Vital Signs - 24 hr 12/29/24 03:19 12/29/24 08:55 12/29/24 14:33 Temperature 97.9 F Pulse Rate 73 72 70 Respiratory Rate 18 Blood Pressure 145/73 H 137/73 117/60 Pulse Oximetry 96 Oxygen Delivery Method Room Air 12/29/24 20:19 12/29/24 20:30 Temperature 97.7 F Pulse Rate 82 Respiratory Rate 16 Blood Pressure 181/94 H 181/94 H Pulse Oximetry 92 Oxygen Delivery Method Room Air BMI result Body Mass Index 21.4 Labs 12/21/24 15:20 12/28/24 07:42 Labs: Laboratory Results - last 48 hr 12/19/24 12/28/24 12/28/24 11:15 07:41 07:42 Sodium 135 Potassium 3.9 D Chloride 102 Carbon Dioxide 25 Anion Gap 12 BUN 27 H Creatinine 0.97 Estim Creat Clear Calc 59.7 Estimated GFR > 60 Fasting Glucose 79 Calcium 9.6 D Total Bilirubin 0.9 AST 24 ALT 23 Alkaline Phosphatase 55 Ammonia 20 Total Protein 6.9 Albumin 4.4 CSF Tube Number 1 CSF Appearance (b) CSF Glucose 64 CSF Total Protein 38.1 CSF C.neoform/gat PCR Not Detected CSF CMV DNA (PCR) Not Detected CSF Enterovirus (PCR) Not Detected CSF E. coli K1 (PCR) Not Detected CSF H. influenzae (PCR) Not Detected CSF HSV I (PCR) Not Detected CSF HSV II (PCR) Not Detected CSF HHV 6 (PCR) Not Detected CSF L.monocytogenes PCR Not Detected CSF N. meningitidis PCR Not Detected CSF Parechovirus (PCR) Not Detected CSF S. agalactiae (PCR) Not Detected CSF S. pneumoniae (PCR) Not Detected CSF VZV (PCR) Not Detected Valproic Acid 62.6 Ref Lab Test Result SEE NOTE Imaging Radiology Impressions: ITS Impressions Brain MRI 12/15/24 09:35 IMPRESSION: Acute nonhemorrhagic ischemia involving the right precentral gyrus and left middle frontal gyrus concerning for embolic etiology. Extensive white matter disease likely related to small vessel occlusive disease. 5 mm nodular lesion, frontal horn right lateral ventricle. Malignancy cannot be excluded. Recommend IV contrast enhanced MRI brain. Global cerebral atrophy. Electronically signed by: Vincent Pandya MD 12/15/2024 10:21 AM EDT RP Lumbar Puncture Fluoroscopy 12/19/24 10:45 IMPRESSION: Successful fluoroscopic guided L3-4 interlaminar lumbar puncture. Electronically signed by: Kevin Barahona MD 12/19/2024 12:36 PM EDT RP Head/Neck CTA 12/21/24 10:29 IMPRESSION: No main cerebral artery occlusion or embolus. Irregular calcified plaque at the proximal right ICA at representing less than 50% stenosis. No dissection. Probable 2 mm aneurysm, right A2 segment. This critical test result is communicated to: Electronically signed by: Vincent Pandya MD 12/21/2024 12:02 PM EDT RP Medications Medications Current Medications Acetaminophen (Acetaminophen 325 Mg Tablet) 650 mg PO Q6H PRN PRN Reason: Headache/Pain, Scale 1-10 Al Hydroxide/Mg Hydroxide (Magnesium Hydrox/Alum Hydrox 30 Ml Oral.Susp) 30 ml PO Q6H PRN PRN Reason: Heartburn/Nausea Alprazolam (Alprazolam 0.25 Mg Tablet) 0.125 mg PO BID PRN PRN Reason: anxietyrestlessness Amlodipine Besylate (Amlodipine Besylate 10 Mg Tablet) 10 mg PO DAILY [facility]; Protocol Last Admin: 12/29/24 08:59 Dose: 10 mg Aspirin (Aspirin Enteric Coated 81 Mg Tablet.) 81 mg PO BEDTIME [facility] Last Admin: 12/29/24 20:30 Dose: 81 mg Atorvastatin Calcium (Atorvastatin Calcium 40 Mg Tablet) 40 mg PO BEDTIME [facility] Last Admin: 12/29/24 20:30 Dose: 40 mg Clonidine HCl (Clonidine Hcl 0.1 Mg Tablet) 0.1 mg PO BID PRN; Protocol PRN Reason: severe anxiety Last Admin: 12/18/24 20:33 Dose: 0.1 mg Divalproex Sodium (Divalproex Sodium Sprinkles 125 Mg Cap.) 500 mg PO BID [facility] Last Admin: 12/29/24 20:30 Dose: 500 mg Emtricitabine/Tenofovir Alafenamide (Emtricitabine/Tenofov Alafenam Tablet) 1 tab PO DAILY [facility] Last Admin: 12/29/24 08:58 Dose: 1 tab Finasteride (Finasteride 5 Mg Tablet) 5 mg PO DAILY [facility] Last Admin: 12/29/24 08:56 Dose: 5 mg Hydralazine HCl (Hydralazine Hcl 25 Mg Tablet) 25 mg PO TID OT[facility]; Protocol Last Admin: 12/29/24 20:30 Dose: 25 mg Hydroxyzine HCl (Hydroxyzine Hcl 25 Mg Tablet) 25 mg PO Q6H PRN PRN Reason: Anxiety Last Admin: 12/29/24 03:13 Dose: 25 mg Lactase (Lactase Tablet) 1 tab PO Q4H PRN PRN Reason: with dairy Last Admin: 12/26/24 15:00 Dose: 1 tab Losartan Potassium (Losartan Potassium 50 Mg Tablet) 100 mg PO DAILY OT[facility]; Protocol Last Admin: 12/29/24 08:57 Dose: 100 mg Magnesium Hydroxide (Milk Of Magnesia 30 Ml Oral.Susp) 30 ml PO DAILY PRN PRN Reason: Constipation Last Admin: 12/19/24 21:38 Dose: 30 ml Melatonin (Melatonin 3 Mg Tablet) 6 mg PO BEDTIME [facility] Last Admin: 12/29/24 20:30 Dose: 6 mg Olanzapine (Olanzapine 5 Mg Tablet) 5 mg PO BEDTIME [facility] Last Admin: 12/29/24 20:30 Dose: 5 mg Olanzapine (Olanzapine 2.5 Mg Tablet) 2.5 mg PO Q4H PRN PRN Reason: anxiety/restlessness Last Admin: 12/29/24 03:14 Dose: 2.5 mg Olanzapine (Olanzapine 5 Mg Tablet) 5 mg PO DAILY [facility] Last Admin: 12/29/24 08:59 Dose: 5 mg Omeprazole (Omeprazole 20 Mg Capsule.Dr) 20 mg PO BEDTIME [facility] Last Admin: 12/29/24 20:30 Dose: 20 mg Tamsulosin HCl (Tamsulosin Hcl 0.4 Mg Capsule) 0.8 mg PO BEDTIME [facility] Last Admin: 12/29/24 20:29 Dose: 0.8 mg Tolterodine Tartrate (Tolterodine Tartrate La 4 Mg Cap.Er.24h) 4 mg PO DAILY [facility] Last Admin: 12/29/24 08:57 Dose: 4 mg Valacyclovir HCl (Valacyclovir Hcl 500 Mg Tablet) 500 mg PO DAILY [facility] Last Admin: 12/29/24 09:00 Dose: 500 mg Allergies Allergies Allergy/AdvReac Type Severity Reaction Status Date / Time No Known Allergies Allergy Verified 12/16/24 19:54 Assessment & Plan Assessment & Plan (1) Encephalopathy: Qualifiers: Encephalopathy type: unspecified encephalopathy Qualified Code(s): G 93.40 - Encephalopathy, unspecified Status: Acute Code(s): G93.40 - Encephalopathy, unspecified Assessment and Plan: 74 years old man with acute change in mental status with psychiatric symptoms of paranoia and agitation and confusion with forgetfulness. This seems to be a relatively recent and according to him he was fine couple of months ago. This would suggest a rapidly progressive process. Differential diagnosis would include atypical encephalitis from an atypical infection, or an inflammatory process including autoimmune condition. It would also include possibility of Crutzfeld Lobito disease. His MRI of brain did reveal subtle abnormalities suggesting any of these possibilities. I recommend sending serum test for Lyme, syphilis, HIV, and blood test for sed rate. If serum or blood tests do not provide any lead, a lumbar puncture is needed to do testing on CSF. EEG is also recommended, which in some cases can also help. (2) Hypertension: Qualifiers: Hypertension type: primary hypertension Qualified Code(s): I10 - Essential (primary) hypertension Status: Acute Code(s): I10 - Essential (primary) hypertension (3) Manic behavior: Status: Acute Code(s): F30.10 - Manic episode without psychotic symptoms, unspecified (4) OCD (obsessive compulsive disorder): Status: Acute Code(s): F42.9 - Obsessive-compulsive disorder, unspecified Plan Patient with ongoing obsessional thoughts intense pressured speech racing thoughts. Mirtazapine 7.5 mg at bedtime see if help with insomnia and obsessional anxiety continue olanzapine 5 mg at bedtime with a 2.5 mg prn targeting agitation obsessional thoughts anxiety. Still do not have results from lumbar puncture which may suggest other causes besides vascular brain changes the patient's symptoms 12/25/24: Increase Depakote to 375 mg BID. 12/26: aware his mood is labile, agrees to increase VPA dosing to 500 BID. hyperverbal, anxious. 12/27/2024 Patient continues hyperverbal limited reasoning and executive function hard for him to stay on topic. Check Depakote level Creutzfeldt-Oseas pending for tomorrow then should have results regarding lumbar puncture. Increase a.m. olanzapine to 5 mg monitor gait 12/28/2024 CJD negative some improvement noted with Depakote and olanzapine less pressured improved anxiety somewhat better able to engage in linear conversation eating and drinking okay flesh pressure remains intermittently elevated will again ask hospitalist service to look at this has been difficult to control Further labs from lumbar puncture pending d/c planning 12/29/2024 Alprazolam 0.125 b.i.d. p.r.n. anxiety continue Depakote and olanzapine somewhat unusual presentation for purely vascular dementia diagnosis. Coordinating care with Neurology negative for see ZIGGY recheck sodium Reason for continued inpatient stay Substantial Risk for: inability to function, rapid decompensation and med/psych decompensation Time Spent With Patient Time: Total time managing care of this patient today ____ minutes.
[2024-12-30 06:19] VITALS: BP 152/77; PULSE 70
--- NOTE | 2024-12-30 07:42 | P.PNPSI_ITS ---
Subjective Subjective Date of Service: 12/30/24 Reason For Visit: inpt,evelyn Subjective Notes: Conditional Voluntary Interim History: overall is less pressured and less intrusive compared to a couple of weeks ago when group underwriter last saw patient. Slept 5 hours. In the milieu. Denies feeling depressed. No med concerns. Is tangential and hard to follow at times and overall reported feeling comfortable working with Dr. Verdin after the weekend and management remaining the same until then. Medication Compliance: Yes Side effects from medications: No Attending Groups: Yes Review of Systems Acute medical concerns: No Review of Systems Review of Systems nothing acute Mental Status Exam Mental Status Exam Narrative: Patient is alert dressed in a robe ambulating without difficulty. Patient with Less rapid speech and some decrease in obsessional repetition . Not depressed. Mood less elevated. No overt delusions. No SI or HI. Insight and judgment gradually improving Diagnostics Vital Signs (24Hr): Vital Signs - 24 hr 12/29/24 08:55 12/29/24 14:33 12/29/24 20:19 Temperature 97.9 F 97.7 F Pulse Rate 72 70 82 Respiratory Rate 18 16 Blood Pressure 137/73 117/60 181/94 H Pulse Oximetry 96 92 Oxygen Delivery Method Room Air Room Air 12/29/24 20:30 12/30/24 06:19 Temperature Pulse Rate 70 Respiratory Rate Blood Pressure 181/94 H 152/77 H Pulse Oximetry Oxygen Delivery Method BMI result Body Mass Index 21.4 Labs 12/21/24 15:20 12/28/24 07:42 Labs: Laboratory Results - last 48 hr 12/19/24 12/28/24 12/28/24 11:15 07:41 07:42 Sodium 135 Potassium 3.9 D Chloride 102 Carbon Dioxide 25 Anion Gap 12 BUN 27 H Creatinine 0.97 Estim Creat Clear Calc 59.7 Estimated GFR > 60 Fasting Glucose 79 Calcium 9.6 D Total Bilirubin 0.9 AST 24 ALT 23 Alkaline Phosphatase 55 Ammonia 20 Total Protein 6.9 Albumin 4.4 CSF Tube Number 1 CSF Appearance (b) CSF Glucose 64 CSF Total Protein 38.1 CSF C.neoform/gat PCR Not Detected CSF CMV DNA (PCR) Not Detected CSF Enterovirus (PCR) Not Detected CSF E. coli K1 (PCR) Not Detected CSF H. influenzae (PCR) Not Detected CSF HSV I (PCR) Not Detected CSF HSV II (PCR) Not Detected CSF HHV 6 (PCR) Not Detected CSF L.monocytogenes PCR Not Detected CSF N. meningitidis PCR Not Detected CSF Parechovirus (PCR) Not Detected CSF S. agalactiae (PCR) Not Detected CSF S. pneumoniae (PCR) Not Detected CSF VZV (PCR) Not Detected Valproic Acid 62.6 Ref Lab Test Result SEE NOTE Imaging Radiology Impressions: ITS Impressions Brain MRI 12/15/24 09:35 IMPRESSION: Acute nonhemorrhagic ischemia involving the right precentral gyrus and left middle frontal gyrus concerning for embolic etiology. Extensive white matter disease likely related to small vessel occlusive disease. 5 mm nodular lesion, frontal horn right lateral ventricle. Malignancy cannot be excluded. Recommend IV contrast enhanced MRI brain. Global cerebral atrophy. Electronically signed by: Vincent Pandya MD 12/15/2024 10:21 AM EDT RP Lumbar Puncture Fluoroscopy 12/19/24 10:45 IMPRESSION: Successful fluoroscopic guided L3-4 interlaminar lumbar puncture. Electronically signed by: Kevin Barahona MD 12/19/2024 12:36 PM EDT RP Head/Neck CTA 12/21/24 10:29 IMPRESSION: No main cerebral artery occlusion or embolus. Irregular calcified plaque at the proximal right ICA at representing less than 50% stenosis. No dissection. Probable 2 mm aneurysm, right A2 segment. This critical test result is communicated to: Electronically signed by: Vincent Pandya MD 12/21/2024 12:02 PM EDT RP Medications Medications Current Medications Acetaminophen (Acetaminophen 325 Mg Tablet) 650 mg PO Q6H PRN PRN Reason: Headache/Pain, Scale 1-10 Al Hydroxide/Mg Hydroxide (Magnesium Hydrox/Alum Hydrox 30 Ml Oral.Susp) 30 ml PO Q6H PRN PRN Reason: Heartburn/Nausea Alprazolam (Alprazolam 0.25 Mg Tablet) 0.125 mg PO BID PRN PRN Reason: anxietyrestlessness Amlodipine Besylate (Amlodipine Besylate 10 Mg Tablet) 10 mg PO DAILY [facility]; Protocol Last Admin: 12/29/24 08:59 Dose: 10 mg Aspirin (Aspirin Enteric Coated 81 Mg Tablet.) 81 mg PO BEDTIME [facility] Last Admin: 12/29/24 20:30 Dose: 81 mg Atorvastatin Calcium (Atorvastatin Calcium 40 Mg Tablet) 40 mg PO BEDTIME [facility] Last Admin: 12/29/24 20:30 Dose: 40 mg Clonidine HCl (Clonidine Hcl 0.1 Mg Tablet) 0.1 mg PO BID PRN; Protocol PRN Reason: severe anxiety Last Admin: 12/18/24 20:33 Dose: 0.1 mg Divalproex Sodium (Divalproex Sodium Sprinkles 125 Mg ) 500 mg PO BID [facility] Last Admin: 12/29/24 20:30 Dose: 500 mg Emtricitabine/Tenofovir Alafenamide (Emtricitabine/Tenofov Alafenam Tablet) 1 tab PO DAILY [facility] Last Admin: 12/29/24 08:58 Dose: 1 tab Finasteride (Finasteride 5 Mg Tablet) 5 mg PO DAILY [facility] Last Admin: 12/29/24 08:56 Dose: 5 mg Hydralazine HCl (Hydralazine Hcl 25 Mg Tablet) 25 mg PO TID [facility]; Protocol Last Admin: 12/29/24 20:30 Dose: 25 mg Hydroxyzine HCl (Hydroxyzine Hcl 25 Mg Tablet) 25 mg PO Q6H PRN PRN Reason: Anxiety Last Admin: 12/29/24 03:13 Dose: 25 mg Lactase (Lactase Tablet) 1 tab PO Q4H PRN PRN Reason: with dairy Last Admin: 12/26/24 15:00 Dose: 1 tab Losartan Potassium (Losartan Potassium 50 Mg Tablet) 100 mg PO DAILY [facility]; Protocol Last Admin: 12/29/24 08:57 Dose: 100 mg Magnesium Hydroxide (Milk Of Magnesia 30 Ml Oral.Susp) 30 ml PO DAILY PRN PRN Reason: Constipation Last Admin: 12/19/24 21:38 Dose: 30 ml Melatonin (Melatonin 3 Mg Tablet) 6 mg PO BEDTIME [facility] Last Admin: 12/29/24 20:30 Dose: 6 mg Olanzapine (Olanzapine 5 Mg Tablet) 5 mg PO BEDTIME [facility] Last Admin: 12/29/24 20:30 Dose: 5 mg Olanzapine (Olanzapine 2.5 Mg Tablet) 2.5 mg PO Q4H PRN PRN Reason: anxiety/restlessness Last Admin: 12/29/24 03:14 Dose: 2.5 mg Olanzapine (Olanzapine 5 Mg Tablet) 5 mg PO DAILY [facility] Last Admin: 12/29/24 08:59 Dose: 5 mg Omeprazole (Omeprazole 20 Mg Capsule.Dr) 20 mg PO BEDTIME [facility] Last Admin: 12/29/24 20:30 Dose: 20 mg Tamsulosin HCl (Tamsulosin Hcl 0.4 Mg Capsule) 0.8 mg PO BEDTIME [facility] Last Admin: 12/29/24 20:29 Dose: 0.8 mg Tolterodine Tartrate (Tolterodine Tartrate La 4 Mg Cap.Er.24h) 4 mg PO DAILY [facility] Last Admin: 12/29/24 08:57 Dose: 4 mg Valacyclovir HCl (Valacyclovir Hcl 500 Mg Tablet) 500 mg PO DAILY [facility] Last Admin: 12/29/24 09:00 Dose: 500 mg Allergies Allergies Allergy/AdvReac Type Severity Reaction Status Date / Time No Known Allergies Allergy Verified 12/16/24 19:54 Assessment & Plan Assessment & Plan (1) Encephalopathy: Qualifiers: Encephalopathy type: unspecified encephalopathy Qualified Code(s): G 93.40 - Encephalopathy, unspecified Status: Acute Code(s): G93.40 - Encephalopathy, unspecified Assessment and Plan: 74 years old man with acute change in mental status with psychiatric symptoms of paranoia and agitation and confusion with forgetfulness. This seems to be a relatively recent and according to him he was fine couple of months ago. This would suggest a rapidly progressive process. Differential diagnosis would include atypical encephalitis from an atypical infection, or an inflammatory process including autoimmune condition. It would also include possibility of Crutzfeld Lobito disease. His MRI of brain did reveal subtle abnormalities suggesting any of these possibilities. I recommend sending serum test for Lyme, syphilis, HIV, and blood test for sed rate. If serum or blood tests do not provide any lead, a lumbar puncture is needed to do testing on CSF. EEG is also recommended, which in some cases can also help. (2) Hypertension: Qualifiers: Hypertension type: primary hypertension Qualified Code(s): I10 - Essential (primary) hypertension Status: Acute Code(s): I10 - Essential (primary) hypertension (3) Manic behavior: Status: Acute Code(s): F30.10 - Manic episode without psychotic symptoms, unspecified (4) OCD (obsessive compulsive disorder): Status: Acute Code(s): F42.9 - Obsessive-compulsive disorder, unspecified Plan Patient with ongoing obsessional thoughts intense pressured speech racing thoughts. Mirtazapine 7.5 mg at bedtime see if help with insomnia and obsessional anxiety continue olanzapine 5 mg at bedtime with a 2.5 mg prn targeting agitation obsessional thoughts anxiety. Still do not have results from lumbar puncture which may suggest other causes besides vascular brain changes the patient's symptoms 12/25/24: Increase Depakote to 375 mg BID. 12/26: aware his mood is labile, agrees to increase VPA dosing to 500 BID. hyperverbal, anxious. 12/27/2024 Patient continues hyperverbal limited reasoning and executive function hard for him to stay on topic. Check Depakote level Creutzfeldt-Oseas pending for tomorrow then should have results regarding lumbar puncture. Increase a.m. olanzapine to 5 mg monitor gait 12/28/2024 CJD negative some improvement noted with Depakote and olanzapine less pressured improved anxiety somewhat better able to engage in linear conversation eating and drinking okay flesh pressure remains intermittently elevated will again ask hospitalist service to look at this has been difficult to control Further labs from lumbar puncture pending d/c planning 12/30/2024: No changes in current management plan and note some test results still pending from lumbar puncture Reason for continued inpatient stay Substantial Risk for: rapid decompensation Time Spent With Patient Time: Total time managing care of this patient today ____ minutes.
[2024-12-30 09:36] VITALS: BP 115/57; PULSE 73; RESP 18; TEMP 36.7; O2SAT 95
[2024-12-30] MEDS: Emtricitabine/Tenofov Alafenam TABLET 1 TAB PO (09:38)
[2024-12-30] MEDS: Divalproex Sodium Sprinkles 125 MG CAP.DR.SPR 500 MG PO ×2 (10:59→20:26)
[2024-12-30 15:19] VITALS: BP 130/78
[2024-12-30 20:00] VITALS: BP 161/82; PULSE 73; RESP 18; TEMP 36.4; O2SAT 94
[2024-12-30 20:24] VITALS: BP 161/82
[2024-12-30] MEDS: Aspirin Enteric Coated 81 MG TABLET.DR PO (20:24)
[2024-12-30 22:17] VITALS: BP 126/56; PULSE 76
[2024-12-31] MEDS: Emtricitabine/Tenofov Alafenam TABLET 1 TAB PO (08:56)
[2024-12-31 08:57] VITALS: BP 144/67; PULSE 72; RESP 18; TEMP 36.4; O2SAT 90
[2024-12-31] MEDS: Divalproex Sodium Sprinkles 125 MG CAP.DR.SPR 500 MG PO ×2 (09:01→21:17)
--- NOTE | 2024-12-31 11:28 | P.PNPSI_ITS ---
Subjective Subjective Date of Service: 12/31/24 Reason For Visit: inpt,evelyn Interim History: overall continues to be less pressured and less intrusive. Xanax did appear to be helpful when taken on a p.r.n. basis. Slept better. In the milieu. Denies feeling depressed. No med concerns. Is tangential and hard to follow at times and overall reported feeling comfortable working with Dr. Verdin after the weekend and med management remaining the same until then He and my brother are really on top of things . Medication Compliance: Yes Side effects from medications: No Attending Groups: No Review of Systems Review of Systems nothing acute Mental Status Exam Mental Status Exam Narrative: Patient is alert dressed in a robe ambulating without difficulty. Patient with Less rapid speech and some decrease in obsessional repetition . Not depressed. Mood less elevated. No overt delusions. No SI or HI. Insight and judgment gradually improving Diagnostics Vital Signs (24Hr): Vital Signs - 24 hr 12/30/24 15:19 12/30/24 20:00 12/30/24 20:24 Temperature 97.5 F Pulse Rate 73 Respiratory Rate 18 Blood Pressure 130/78 161/82 H 161/82 H Pulse Oximetry 94 Oxygen Delivery Method Room Air 12/30/24 22:17 12/31/24 08:57 Temperature 97.5 F Pulse Rate 76 72 Respiratory Rate 18 Blood Pressure 126/56 L 144/67 H Pulse Oximetry 90 L Oxygen Delivery Method Room Air BMI result Body Mass Index 21.4 Labs 12/21/24 15:20 12/28/24 07:42 Imaging Radiology Impressions: ITS Impressions Brain MRI 12/15/24 09:35 IMPRESSION: Acute nonhemorrhagic ischemia involving the right precentral gyrus and left middle frontal gyrus concerning for embolic etiology. Extensive white matter disease likely related to small vessel occlusive disease. 5 mm nodular lesion, frontal horn right lateral ventricle. Malignancy cannot be excluded. Recommend IV contrast enhanced MRI brain. Global cerebral atrophy. Electronically signed by: Vincent Pandya MD 12/15/2024 10:21 AM EDT RP Lumbar Puncture Fluoroscopy 12/19/24 10:45 IMPRESSION: Successful fluoroscopic guided L3-4 interlaminar lumbar puncture. Electronically signed by: Kevin Barahona MD 12/19/2024 12:36 PM EDT RP Head/Neck CTA 12/21/24 10:29 IMPRESSION: No main cerebral artery occlusion or embolus. Irregular calcified plaque at the proximal right ICA at representing less than 50% stenosis. No dissection. Probable 2 mm aneurysm, right A2 segment. This critical test result is communicated to: Electronically signed by: Vincent Pandya MD 12/21/2024 12:02 PM EDT RP Medications Medications Current Medications Acetaminophen (Acetaminophen 325 Mg Tablet) 650 mg PO Q6H PRN PRN Reason: Headache/Pain, Scale 1-10 Al Hydroxide/Mg Hydroxide (Magnesium Hydrox/Alum Hydrox 30 Ml Oral.Susp) 30 ml PO Q6H PRN PRN Reason: Heartburn/Nausea Alprazolam (Alprazolam 0.25 Mg Tablet) 0.125 mg PO BID PRN PRN Reason: anxietyrestlessness Last Admin: 12/30/24 22:25 Dose: 0.125 mg Amlodipine Besylate (Amlodipine Besylate 10 Mg Tablet) 10 mg PO DAILY [facility]; Protocol Last Admin: 12/31/24 09:01 Dose: 10 mg Aspirin (Aspirin Enteric Coated 81 Mg Tablet.) 81 mg PO BEDTIME [facility] Last Admin: 12/30/24 20:24 Dose: 81 mg Atorvastatin Calcium (Atorvastatin Calcium 40 Mg Tablet) 40 mg PO BEDTIME [facility] Last Admin: 12/30/24 20:24 Dose: 40 mg Clonidine HCl (Clonidine Hcl 0.1 Mg Tablet) 0.1 mg PO BID PRN; Protocol PRN Reason: severe anxiety Last Admin: 12/18/24 20:33 Dose: 0.1 mg Divalproex Sodium (Divalproex Sodium Sprinkles 125 Mg ) 500 mg PO BID [facility] Last Admin: 12/31/24 09:01 Dose: 500 mg Emtricitabine/Tenofovir Alafenamide (Emtricitabine/Tenofov Alafenam Tablet) 1 tab PO DAILY [facility] Last Admin: 12/31/24 08:56 Dose: 1 tab Finasteride (Finasteride 5 Mg Tablet) 5 mg PO DAILY [facility] Last Admin: 12/31/24 08:55 Dose: 5 mg Hydralazine HCl (Hydralazine Hcl 25 Mg Tablet) 25 mg PO TID [facility]; Protocol Last Admin: 12/31/24 08:56 Dose: 25 mg Hydroxyzine HCl (Hydroxyzine Hcl 25 Mg Tablet) 25 mg PO Q6H PRN PRN Reason: Anxiety Last Admin: 12/29/24 03:13 Dose: 25 mg Lactase (Lactase Tablet) 1 tab PO Q4H PRN PRN Reason: with dairy Last Admin: 12/26/24 15:00 Dose: 1 tab Losartan Potassium (Losartan Potassium 50 Mg Tablet) 100 mg PO DAILY [facility]; Protocol Last Admin: 12/31/24 08:56 Dose: 100 mg Magnesium Hydroxide (Milk Of Magnesia 30 Ml Oral.Susp) 30 ml PO DAILY PRN PRN Reason: Constipation Last Admin: 12/19/24 21:38 Dose: 30 ml Melatonin (Melatonin 3 Mg Tablet) 6 mg PO BEDTIME [facility] Last Admin: 12/30/24 20:24 Dose: 6 mg Olanzapine (Olanzapine 5 Mg Tablet) 5 mg PO BEDTIME [facility] Last Admin: 12/30/24 20:24 Dose: 5 mg Olanzapine (Olanzapine 2.5 Mg Tablet) 2.5 mg PO Q4H PRN PRN Reason: anxiety/restlessness Last Admin: 12/30/24 22:25 Dose: 2.5 mg Olanzapine (Olanzapine 5 Mg Tablet) 5 mg PO DAILY [facility] Last Admin: 12/31/24 09:01 Dose: 5 mg Omeprazole (Omeprazole 20 Mg Capsule.Dr) 20 mg PO BEDTIME [facility] Last Admin: 12/30/24 20:23 Dose: 20 mg Tamsulosin HCl (Tamsulosin Hcl 0.4 Mg Capsule) 0.8 mg PO BEDTIME [facility] Last Admin: 12/30/24 20:23 Dose: 0.8 mg Tolterodine Tartrate (Tolterodine Tartrate La 4 Mg Cap.Er.24h) 4 mg PO DAILY [facility] Last Admin: 12/31/24 08:56 Dose: 4 mg Valacyclovir HCl (Valacyclovir Hcl 500 Mg Tablet) 500 mg PO DAILY [facility] Last Admin: 12/31/24 08:56 Dose: 500 mg Allergies Allergies Allergy/AdvReac Type Severity Reaction Status Date / Time No Known Allergies Allergy Verified 12/16/24 19:54 Assessment & Plan Assessment & Plan (1) Encephalopathy: Qualifiers: Encephalopathy type: unspecified encephalopathy Qualified Code(s): G 93.40 - Encephalopathy, unspecified Status: Acute Code(s): G93.40 - Encephalopathy, unspecified Assessment and Plan: 74 years old man with acute change in mental status with psychiatric symptoms of paranoia and agitation and confusion with forgetfulness. This seems to be a relatively recent and according to him he was fine couple of months ago. This would suggest a rapidly progressive process. Differential diagnosis would include atypical encephalitis from an atypical infection, or an inflammatory process including autoimmune condition. It would also include possibility of Crutzfeld Lobito disease. His MRI of brain did reveal subtle abnormalities suggesting any of these possibilities. I recommend sending serum test for Lyme, syphilis, HIV, and blood test for sed rate. If serum or blood tests do not provide any lead, a lumbar puncture is needed to do testing on CSF. EEG is also recommended, which in some cases can also help. (2) Hypertension: Qualifiers: Hypertension type: primary hypertension Qualified Code(s): I10 - Essential (primary) hypertension Status: Acute Code(s): I10 - Essential (primary) hypertension (3) Manic behavior: Status: Acute Code(s): F30.10 - Manic episode without psychotic symptoms, unspecified (4) OCD (obsessive compulsive disorder): Status: Acute Code(s): F42.9 - Obsessive-compulsive disorder, unspecified Plan Patient with ongoing obsessional thoughts intense pressured speech racing thoughts. Mirtazapine 7.5 mg at bedtime see if help with insomnia and obsessional anxiety continue olanzapine 5 mg at bedtime with a 2.5 mg prn targeting agitation obsessional thoughts anxiety. Still do not have results from lumbar puncture which may suggest other causes besides vascular brain changes the patient's symptoms 12/25/24: Increase Depakote to 375 mg BID. 12/26: aware his mood is labile, agrees to increase VPA dosing to 500 BID. hyperverbal, anxious. 12/27/2024 Patient continues hyperverbal limited reasoning and executive function hard for him to stay on topic. Check Depakote level Creutzfeldt-Ose[place] pending for tomorrow then should have results regarding lumbar puncture. Increase a.m. olanzapine to 5 mg monitor gait 12/28/2024 CJD negative some improvement noted with Depakote and olanzapine less pressured improved anxiety somewhat better able to engage in linear conversation eating and drinking okay flesh pressure remains intermittently elevated will again ask hospitalist service to look at this has been difficult to control Further labs from lumbar puncture pending d/c planning 12/30/2024: No changes in current management plan and note some test results still pending from lumbar puncture 12/31: no changes Reason for continued inpatient stay Substantial Risk for: rapid decompensation Time Spent With Patient Time: Total time managing care of this patient today ____ minutes.
[2024-12-31 13:00] VITALS: BMI 21.3
[2024-12-31 16:01] VITALS: BP 158/79
[2024-12-31 20:00] VITALS: BP 150/79; PULSE 67; RESP 18; TEMP 36.7; O2SAT 93
[2024-12-31 21:17] VITALS: BP 150/79
[2024-12-31] MEDS: Aspirin Enteric Coated 81 MG TABLET.DR PO (21:18)
[2024-12-31 23:24] LABS: Lyme IgG CSF Immunoblot NO BANDS DETECTED; Lyme IgM CSF Immunoblot NO BANDS DETECTED
[2025-01-01 08:18] VITALS: BP 137/77; PULSE 73; RESP 18; TEMP 36; O2SAT 94
[2025-01-01] MEDS: Divalproex Sodium Sprinkles 125 MG CAP.DR.SPR 500 MG PO (08:28)
[2025-01-01] MEDS: Emtricitabine/Tenofov Alafenam TABLET 1 TAB PO (08:30)
--- NOTE | 2025-01-01 09:32 | HO.PM.IMPN ---
Subjective Subjective Date of Service: 01/01/25 Interval History: Patient seen for continued high blood pressure readings. Has some results pending from LP. On exam he is alert and confused. He is answering questions although he is hard to follow. He denies any CP or SOB. Reports feeling hungry. Per nursing he ate 100% of breakfast. He is OOB sitting at table in NAD. Denies headache, dizziness. BP's ranging 140-160's systolic. Diastolic readings 60-70's. This morning 137/77. Review of Systems Denies CP or SOB. Denies dizziness. Feels hungry Physical Exam Exam: Exam: CONST: Alert and oriented, in NAD. Well nourished HEENT: Normocephalic, atraumatic, MMM, Eyes clear, Neck supple RESP: Lungs clear, RRR even and regular HEART:,RRR, S1, S2. No edema GI:Abdomen Soft NT, ND. + BS times four :Deferred SKIN: Warm dry and intact, no visible lesions or rashes NEURO:CN II-XII Intact bilaterally, Sensation intact. Speech clear PSYCH: Cooperative, easily loses train of thought, answers questions after redirection. Vital Signs: Vital Signs: Last Vital Signs Temp 96.8 F 01/01/25 08:18 Pulse 73 01/01/25 08:18 Resp 18 01/01/25 08:18 BP 137/77 01/01/25 08:18 Pulse Ox 94 01/01/25 08:18 O2 Del Method Room Air 01/01/25 08:18 BMI result Body Mass Index 21.3 Objective Data Active Medications Acetaminophen (Acetaminophen 325 Mg Tablet) 650 mg PO Q6H PRN PRN Reason: Headache/Pain, Scale 1-10 Al Hydroxide/Mg Hydroxide (Magnesium Hydrox/Alum Hydrox 30 Ml Oral.Susp) 30 ml PO Q6H PRN PRN Reason: Heartburn/Nausea Alprazolam (Alprazolam 0.25 Mg Tablet) 0.125 mg PO TID PRN PRN Reason: anxietyrestlessness Amlodipine Besylate (Amlodipine Besylate 10 Mg Tablet) 10 mg PO DAILY [facility]; Protocol Last Admin: 01/01/25 08:32 Dose: 10 mg Documented By: SAMINA Aspirin (Aspirin Enteric Coated 81 Mg Tablet.) 81 mg PO BEDTIME [facility] Last Admin: 12/31/24 21:18 Dose: 81 mg Documented By: JAGJIT Atorvastatin Calcium (Atorvastatin Calcium 40 Mg Tablet) 40 mg PO BEDTIME [facility] Last Admin: 12/31/24 21:19 Dose: 40 mg Documented By: JAGJIT Clonidine HCl (Clonidine Hcl 0.1 Mg Tablet) 0.1 mg PO BID PRN; Protocol PRN Reason: severe anxiety Last Admin: 12/18/24 20:33 Dose: 0.1 mg Documented By: KINGS Divalproex Sodium (Divalproex Sodium Sprinkles 125 Mg ) 500 mg PO BID [facility] Last Admin: 01/01/25 08:28 Dose: 500 mg Documented By: SAMINA Emtricitabine/Tenofovir Alafenamide (Emtricitabine/Tenofov Alafenam Tablet) 1 tab PO DAILY [facility] Last Admin: 01/01/25 08:30 Dose: 1 tab Documented By: SAMINA Finasteride (Finasteride 5 Mg Tablet) 5 mg PO DAILY [facility] Last Admin: 01/01/25 08:30 Dose: 5 mg Documented By: SAMINA Hydralazine HCl (Hydralazine Hcl 25 Mg Tablet) 25 mg PO TID [facility]; Protocol Last Admin: 01/01/25 08:31 Dose: 25 mg Documented By: SAMINA Lactase (Lactase Tablet) 1 tab PO Q4H PRN PRN Reason: with dairy Last Admin: 12/26/24 15:00 Dose: 1 tab Documented By: MAIKEL Losartan Potassium (Losartan Potassium 50 Mg Tablet) 100 mg PO DAILY [facility]; Protocol Last Admin: 01/01/25 08:32 Dose: 100 mg Documented By: SAMINA Magnesium Hydroxide (Milk Of Magnesia 30 Ml Oral.Susp) 30 ml PO DAILY PRN PRN Reason: Constipation Last Admin: 12/19/24 21:38 Dose: 30 ml Documented By: DELON Melatonin (Melatonin 3 Mg Tablet) 6 mg PO BEDTIME [facility] Last Admin: 12/31/24 21:19 Dose: 6 mg Documented By: JAGJIT Olanzapine (Olanzapine 2.5 Mg Tablet) 2.5 mg PO Q4H PRN PRN Reason: anxiety/restlessness Last Admin: 12/31/24 17:53 Dose: 2.5 mg Documented By: JAYA Olanzapine (Olanzapine 5 Mg Tablet) 5 mg PO DAILY [facility] Last Admin: 01/01/25 08:31 Dose: 5 mg Documented By: SAMINA Olanzapine (Olanzapine 10 Mg Tablet) 10 mg PO BEDTIME [facility] Omeprazole (Omeprazole 20 Mg Capsule.Dr) 20 mg PO BEDTIME [facility] Last Admin: 12/31/24 21:16 Dose: 20 mg Documented By: JAGJIT Tamsulosin HCl (Tamsulosin Hcl 0.4 Mg Capsule) 0.8 mg PO BEDTIME [facility] Last Admin: 12/31/24 21:15 Dose: 0.8 mg Documented By: JAGJIT Tolterodine Tartrate (Tolterodine Tartrate La 4 Mg Cap.Er.24h) 4 mg PO DAILY [facility] Last Admin: 01/01/25 08:32 Dose: 4 mg Documented By: SAMINA Valacyclovir HCl (Valacyclovir Hcl 500 Mg Tablet) 500 mg PO DAILY [facility] Last Admin: 01/01/25 08:31 Dose: 500 mg Documented By: SAMINA Labs 12/21/24 15:20 12/28/24 07:42 Labs: Laboratory Results - last 24 hr 12/19/24 11:15 CSF Lyme IgG (Immblot) NO BANDS DETECTED CSF Lyme IgM (Immblot) NO BANDS DETECTED Microbiology Microbiology Results: Microbiology 12/19/24 11:15 Fungal Identification - Preliminary Spine No growth after 1 week. Assessment and Plan (1) Manic behavior: Status: Acute Plan 74M PMH mood disorder, HTN, BPH, GERD, HSV, mood disorder presented on section 12 with evelyn/paranoia, found to be hypoxic and hypertensive initially admitted to hospital. Now admitted to [facility] for further care and stabilization for paranoia and agitation. Has been seen by neurology, Results of LP pending. Mood disorder/Paranoia Treatment per psych team Hypertension/HLD Continues on Losartan 100 mg daily, Amlodipine 10 mgs and Hydralazine 25 mgs TID Will change amlodipine to HS dosing. Low Salt diet. Patient asking for salt for his food. Avoid AV reji blockers including propranolol Continue Atorvastatin-LIpid panel WNL. Encephalopathy with abnormal MRI Follow recommendations from Neurology EEG testing negative for CJD or epileptic tendencies. ESR normal HIV, RPR, Lyme testing all negative Results of LP pending History of Bradycardia with normal MS interval Patient not on any AV reji blockers TSH WNL Will need Holter monitor outpatient and cardiology follow up BPH Continue finasteride and tamsulosin On Detrol GERD Omeprazole Avoid food triggers HSV Valacyclovir On Descovy for prep Thank you for allowing me to participate in the care of this patient. Will follow as needed. Please reconsult of any acute concerns or issues arise Quality Stroke Does the patient have a stroke diagnosis?: No VTE Prior VTE?: No VTE Risk Level:: Medical - low VTE Device Contraindication: Treatment Not Indicated VTE Drug Contraindication: Treatment Not Indicated
[2025-01-01 11:41] LABS: MANUAL DIFF FLAG NO
[2025-01-01 11:49] LABS: Hematocrit 39.0 % (42.0-52.0); Hemoglobin 13.9 g/dl (14.0-18.0); Imm Gran Abs Auto 0.01 X10*3/uL (0.00-0.03); Imm Gran Pct Auto 0.2 % (0.0-0.4); Lymphocytes Absolute Auto 1.6 X10*3/uL (1.2-4.9); Mean Corpuscular HGB Conc 35.6 g/dl (31.0-36.0); Mean Corpuscular Hemoglobin 34.8 pg (27.0-33.0); Mean Corpuscular Volume 97.7 fL (80.0-98.0); NRBC Abs Auto 0.000 X10*3/uL (0.0-0.012); NRBC Pct Auto 0.0 /100WBC (0.0-0.2); Platelet Count 215 X10*3/uL (160-400); Red Blood Count 3.99 X10*6/uL (4.60-5.80); White Blood Count 5.6 X10*3/uL (4.8-10.8)
[2025-01-01 11:59] LABS: Anion Gap 13 (12-20); Blood Urea Nitrogen 24 mg/dL (9-16); Calcium 9.8 mg/dL (8.4-10.2); Carbon Dioxide 23 mmol/L (22-29); Chloride 105 mmol/L (96-108); Creatinine Clr Calc Pharmacy 64.0; Estimated Glomerular Filt Rate > 60; Potassium 4.2 mmol/L (3.3-5.1); Sodium 137 mmol/L (135-145)
[2025-01-01 12:17] LABS: VDRL Qualitative CSF Nonreactive (Nonreactive)
[2025-01-01 12:34] LABS: Folate 13.7 ng/mL (> or = 4.0); Vitamin B12 1175 pg/mL (200-900)
[2025-01-01 15:06] VITALS: BP 142/83; PULSE 76
[2025-01-01 20:00] VITALS: BP 137/63; PULSE 64; RESP 16; TEMP 36.4; O2SAT 98
[2025-01-01] MEDS: Divalproex Sodium Sprinkles 125 MG CAP.DR.SPR 625 MG PO (21:05)
[2025-01-01 21:06] VITALS: BP 145/79
[2025-01-01] MEDS: Aspirin Enteric Coated 81 MG TABLET.DR PO (21:06)
[2025-01-01 21:14] VITALS: BP 145/79; PULSE 74; RESP 18; TEMP 36.6; O2SAT 96
--- NOTE | 2025-01-01 22:28 | P.PNPSI_ITS ---
Subjective Subjective Date of Service: 01/01/25 Reason For Visit: inpt,evelyn Subjective Notes: Conditional Voluntary Healthcare Proxy: Yes Interim History: pt was more reflective today calmer less pressured at times.More aware he has brain cognitive issues more awareness. No falls . Mental Status Exam Mental Status Exam Narrative: Patient is alert dressed in a robe ambulating without difficulty. Patient with Less rapid speech and some decrease in obsessional repetition . some sadness when aware he has brain disorder that may not be reversible. Mood less elevated. No overt delusions. No SI or HI. Insight and judgment gradually improving to some degree Diagnostics Vital Signs (24Hr): Vital Signs - 24 hr 01/01/25 08:18 01/01/25 15:06 01/01/25 20:00 Temperature 96.8 F 97.5 F Pulse Rate 73 76 64 Respiratory Rate 18 16 Blood Pressure 137/77 142/83 H 137/63 Pulse Oximetry 94 98 Oxygen Delivery Method Room Air Room Air 01/01/25 21:06 01/01/25 21:14 Temperature 97.8 F Pulse Rate 74 Respiratory Rate 18 Blood Pressure 145/79 H 145/79 H Pulse Oximetry 96 Oxygen Delivery Method Room Air BMI result Body Mass Index 21.3 Labs 01/01/25 11:36 01/01/25 11:36 Labs: Laboratory Results - last 48 hr 12/19/24 01/01/25 11:15 11:36 WBC 5.6 RBC 3.99 L Hgb 13.9 L Hct 39.0 L MCV 97.7 MCH 34.8 H MCHC 35.6 RDW 11.5 Plt Count 215 MPV 10.0 Immature Gran % (Auto) 0.2 Neut % (Auto) 59.2 Lymph % (Auto) 28.6 [place] % (Auto) 9.3 Eos % (Auto) 2.0 Baso % (Auto) 0.7 Lymph # (Auto) 1.6 [place] # (Auto) 0.5 Eos # (Auto) 0.1 Baso # (Auto) 0.0 Abs Immat Gran (auto) 0.01 Absolute Neuts (auto) 3.3 Absolute Nucleated RBC 0.000 Nucleated RBC % (auto) 0.0 Sodium 137 Potassium 4.2 Chloride 105 Carbon Dioxide 23 Anion Gap 13 BUN 24 H Creatinine 0.91 Estim Creat Clear Calc 64.0 Estimated GFR > 60 Random Glucose 82 Calcium 9.8 Vitamin B12 1175 H Folate 13.7 CSF VDRL Nonreactive CSF Lyme IgG (Immblot) NO BANDS DETECTED CSF Lyme IgM (Immblot) NO BANDS DETECTED Imaging Radiology Impressions: ITS Impressions Brain MRI 12/15/24 09:35 IMPRESSION: Acute nonhemorrhagic ischemia involving the right precentral gyrus and left middle frontal gyrus concerning for embolic etiology. Extensive white matter disease likely related to small vessel occlusive disease. 5 mm nodular lesion, frontal horn right lateral ventricle. Malignancy cannot be excluded. Recommend IV contrast enhanced MRI brain. Global cerebral atrophy. Electronically signed by: Vincent Pandya MD 12/15/2024 10:21 AM EDT RP Lumbar Puncture Fluoroscopy 12/19/24 10:45 IMPRESSION: Successful fluoroscopic guided L3-4 interlaminar lumbar puncture. Electronically signed by: Kevin Barahona MD 12/19/2024 12:36 PM EDT RP Head/Neck CTA 12/21/24 10:29 IMPRESSION: No main cerebral artery occlusion or embolus. Irregular calcified plaque at the proximal right ICA at representing less than 50% stenosis. No dissection. Probable 2 mm aneurysm, right A2 segment. This critical test result is communicated to: Electronically signed by: Vincent Pandya MD 12/21/2024 12:02 PM EDT RP Medications Medications Current Medications Acetaminophen (Acetaminophen 325 Mg Tablet) 650 mg PO Q6H PRN PRN Reason: Headache/Pain, Scale 1-10 Al Hydroxide/Mg Hydroxide (Magnesium Hydrox/Alum Hydrox 30 Ml Oral.Susp) 30 ml PO Q6H PRN PRN Reason: Heartburn/Nausea Alprazolam (Alprazolam 0.25 Mg Tablet) 0.125 mg PO TID PRN PRN Reason: anxietyrestlessness Amlodipine Besylate (Amlodipine Besylate 10 Mg Tablet) 10 mg PO BEDTIME OT[facility]; Protocol Aspirin (Aspirin Enteric Coated 81 Mg Tablet.Dr) 81 mg PO BEDTIME [facility] Last Admin: 01/01/25 21:06 Dose: 81 mg Atorvastatin Calcium (Atorvastatin Calcium 40 Mg Tablet) 40 mg PO BEDTIME [facility] Last Admin: 01/01/25 21:06 Dose: 40 mg Clonidine HCl (Clonidine Hcl 0.1 Mg Tablet) 0.1 mg PO BID PRN; Protocol PRN Reason: severe anxiety Last Admin: 12/18/24 20:33 Dose: 0.1 mg Divalproex Sodium (Divalproex Sodium Sprinkles 125 Mg CapSpr) 625 mg PO BID [facility] Last Admin: 01/01/25 21:05 Dose: 625 mg Emtricitabine/Tenofovir Alafenamide (Emtricitabine/Tenofov Alafenam Tablet) 1 tab PO DAILY [facility] Last Admin: 01/01/25 08:30 Dose: 1 tab Finasteride (Finasteride 5 Mg Tablet) 5 mg PO DAILY [facility] Last Admin: 01/01/25 08:30 Dose: 5 mg Hydralazine HCl (Hydralazine Hcl 25 Mg Tablet) 25 mg PO TID [facility]; Protocol Last Admin: 01/01/25 21:06 Dose: 25 mg Lactase (Lactase Tablet) 1 tab PO Q4H PRN PRN Reason: with dairy Last Admin: 12/26/24 15:00 Dose: 1 tab Losartan Potassium (Losartan Potassium 50 Mg Tablet) 100 mg PO DAILY [facility]; Protocol Last Admin: 01/01/25 08:32 Dose: 100 mg Magnesium Hydroxide (Milk Of Magnesia 30 Ml Oral.Susp) 30 ml PO DAILY PRN PRN Reason: Constipation Last Admin: 12/19/24 21:38 Dose: 30 ml Melatonin (Melatonin 3 Mg Tablet) 6 mg PO BEDTIME [facility] Last Admin: 01/01/25 21:05 Dose: 6 mg Olanzapine (Olanzapine 2.5 Mg Tablet) 2.5 mg PO Q4H PRN PRN Reason: anxiety/restlessness Last Admin: 12/31/24 17:53 Dose: 2.5 mg Olanzapine (Olanzapine 5 Mg Tablet) 5 mg PO DAILY [facility] Last Admin: 01/01/25 08:31 Dose: 5 mg Olanzapine (Olanzapine 10 Mg Tablet) 10 mg PO BEDTIME [facility] Last Admin: 01/01/25 21:06 Dose: 10 mg Omeprazole (Omeprazole 20 Mg Capsule.Dr) 20 mg PO BEDTIME [facility] Last Admin: 01/01/25 21:06 Dose: 20 mg Tamsulosin HCl (Tamsulosin Hcl 0.4 Mg Capsule) 0.8 mg PO BEDTIME [facility] Last Admin: 01/01/25 21:05 Dose: 0.8 mg Tolterodine Tartrate (Tolterodine Tartrate La 4 Mg Cap.Er.24h) 4 mg PO DAILY [facility] Last Admin: 01/01/25 08:32 Dose: 4 mg Valacyclovir HCl (Valacyclovir Hcl 500 Mg Tablet) 500 mg PO DAILY [facility] Last Admin: 01/01/25 08:31 Dose: 500 mg Allergies Allergies Allergy/AdvReac Type Severity Reaction Status Date / Time No Known Allergies Allergy Verified 12/16/24 19:54 Assessment & Plan Assessment & Plan (1) Manic behavior: Status: Acute Code(s): F30.10 - Manic episode without psychotic symptoms, unspecified (2) Multifactorial dementia: Status: Acute Code(s): F03.90 - Unspecified dementia, unspecified severity, without behavioral disturbance, psychotic disturbance, mood disturbance, and anxiety (3) Encephalopathy: Qualifiers: Encephalopathy type: unspecified encephalopathy Qualified Code(s): G 93.40 - Encephalopathy, unspecified Status: Acute Code(s): G93.40 - Encephalopathy, unspecified Assessment and Plan: 74 years old man with acute change in mental status with psychiatric symptoms of paranoia and agitation and confusion with forgetfulness. This seems to be a relatively recent and according to him he was fine couple of months ago. This would suggest a rapidly progressive process. Differential diagnosis would include atypical encephalitis from an atypical infection, or an inflammatory process including autoimmune condition. It would also include possibility of Crutzfeld Lboito disease. His MRI of brain did reveal subtle abnormalities suggesting any of these possibilities. I recommend sending serum test for Lyme, syphilis, HIV, and blood test for sed rate. If serum or blood tests do not provide any lead, a lumbar puncture is needed to do testing on CSF. EEG is also recommended, which in some cases can also help. (4) Hypertension: Qualifiers: Hypertension type: primary hypertension Qualified Code(s): I10 - Essential (primary) hypertension Status: Acute Code(s): I10 - Essential (primary) hypertension (5) OCD (obsessive compulsive disorder): Status: Acute Code(s): F42.9 - Obsessive-compulsive disorder, unspecified Plan 74M PMH mood disorder, HTN, BPH, GERD, HSV, mood disorder presented on section 12 with evelyn/paranoia, found to be hypoxic and hypertensive initially admitted to hospital. Now admitted to [facility] for further care and stabilization for paranoia and agitation. Has been seen by neurology, Results of LP pending. Mood disorder/Paranoia Treatment per psych team Hypertension/HLD Continues on Losartan 100 mg daily, Amlodipine 10 mgs and Hydralazine 25 mgs TID Will change amlodipine to HS dosing. Low Salt diet. Patient asking for salt for his food. Avoid AV reji blockers including propranolol Continue Atorvastatin-LIpid panel WNL. Encephalopathy with abnormal MRI Follow recommendations from Neurology EEG testing negative for CJD or epileptic tendencies. ESR normal HIV, RPR, Lyme testing all negative Results of LP pending History of Bradycardia with normal ID interval Patient not on any AV reji blockers TSH WNL Will need Holter monitor outpatient and cardiology follow up BPH Continue finasteride and tamsulosin On Detrol GERD Omeprazole Avoid food triggers HSV Valacyclovir On Descovy for prep Thank you for allowing me to participate in the care of this patient. Will follow as needed. Please reconsult of any acute concerns or issues arise Assessment and Plan Patient with ongoing obsessional thoughts intense pressured speech racing thoughts. Mirtazapine 7.5 mg at bedtime see if help with insomnia and obsessional anxiety continue olanzapine 5 mg at bedtime with a 2.5 mg prn targeting agitation obsessional thoughts anxiety. Still do not have results from lumbar puncture which may suggest other causes besides vascular brain changes the patient's symptoms 12/25/24: Increase Depakote to 375 mg BID. 12/26: aware his mood is labile, agrees to increase VPA dosing to 500 BID. hyperverbal, anxious. 12/27/2024 Patient continues hyperverbal limited reasoning and executive function hard for him to stay on topic. Check Depakote level Creutzfeldt-Oseas pending for tomorrow then should have results regarding lumbar puncture. Increase a.m. olanzapine to 5 mg monitor gait 12/28/2024 CJD negative some improvement noted with Depakote and olanzapine less pressured improved anxiety somewhat better able to engage in linear conversation eating and drinking okay flesh pressure remains intermittently elevated will again ask hospitalist service to look at this has been difficult to control Further labs from lumbar puncture pending d/c planning 12/30/2024: No changes in current management plan and note some test results still pending from lumbar puncture 12/31: no changes Reason for continued inpatient stay Substantial Risk for rapid decompensation 01/01/25 Pt with some inc ability to think reason case reviewed with neurology no exact dx vascular plus degenerative? consider namenda Reason for continued inpatient stay Substantial Risk for: rapid decompensation Time Spent With Patient Time: Total time managing care of this patient today ____ minutes.
[2025-01-02 08:00] VITALS: BP 145/81; PULSE 77; RESP 18; TEMP 36.7; O2SAT 96
[2025-01-02] MEDS: Divalproex Sodium Sprinkles 125 MG CAP.DR.SPR 625 MG PO ×2 (08:16→20:46)
[2025-01-02] MEDS: Emtricitabine/Tenofov Alafenam TABLET 1 TAB PO (08:18)
[2025-01-02 14:56] VITALS: BP 110/57; PULSE 62
--- NOTE | 2025-01-02 15:12 | PC.NURSE ---
Pt refused his scheduled 1500 Hydralazine 25mg and stated My blood pressure is fine I don't need to take this. B/P was 110/57. Provider Dr. Verdin and Hospitalist Nya Tinajero notified.
[2025-01-02 20:00] VITALS: BP 158/78; PULSE 71; RESP 18; TEMP 37; O2SAT 94
[2025-01-02] MEDS: Aspirin Enteric Coated 81 MG TABLET.DR PO (20:49)
--- NOTE | 2025-01-02 21:56 | P.PNPSI_ITS ---
Subjective Subjective Date of Service: 12/26/24 Reason For Visit: inpt,evelyn Subjective Notes: Conditional Voluntary Healthcare Proxy: Yes Interim History: pt s case reviewed with neurology and discussed with hcp. pt continues with poor attention memory and difficulty with reasoning. less agitation bp in better control Medication Compliance: Yes Mental Status Exam Mental Status Exam Narrative: Patient is alert dressed in a robe ambulating without difficulty. Patient with Less rapid speech and some decrease in obsessional repetition . some sadness when aware he has brain disorder that may not be reversible ongoing. Bizarrely asks about renting an apartment seemingly not realizing the context of where he is. Mood less elevated. No overt delusions. No SI or HI. Insight very limited Diagnostics Vital Signs (24Hr): Vital Signs - 24 hr 01/02/25 08:00 01/02/25 14:56 01/02/25 20:00 Temperature 98.1 F 98.6 F Pulse Rate 77 62 71 Respiratory Rate 18 18 Blood Pressure 145/81 H 110/57 L 158/78 H Pulse Oximetry 96 94 Oxygen Delivery Method Room Air Room Air BMI result Body Mass Index 21.3 Labs 01/01/25 11:36 01/01/25 11:36 Labs: Laboratory Results - last 48 hr 12/19/24 01/01/25 11:15 11:36 WBC 5.6 RBC 3.99 L Hgb 13.9 L Hct 39.0 L MCV 97.7 MCH 34.8 H MCHC 35.6 RDW 11.5 Plt Count 215 MPV 10.0 Immature Gran % (Auto) 0.2 Neut % (Auto) 59.2 Lymph % (Auto) 28.6 [place] % (Auto) 9.3 Eos % (Auto) 2.0 Baso % (Auto) 0.7 Lymph # (Auto) 1.6 [place] # (Auto) 0.5 Eos # (Auto) 0.1 Baso # (Auto) 0.0 Abs Immat Gran (auto) 0.01 Absolute Neuts (auto) 3.3 Absolute Nucleated RBC 0.000 Nucleated RBC % (auto) 0.0 Sodium 137 Potassium 4.2 Chloride 105 Carbon Dioxide 23 Anion Gap 13 BUN 24 H Creatinine 0.91 Estim Creat Clear Calc 64.0 Estimated GFR > 60 Random Glucose 82 Calcium 9.8 Vitamin B12 1175 H Folate 13.7 CSF VDRL Nonreactive CSF Lyme IgG (Immblot) NO BANDS DETECTED CSF Lyme IgG Bands Det TNP CSF Lyme IgM (Immblot) NO BANDS DETECTED CSF Lyme IgM Bands Det TNP Imaging Radiology Impressions: ITS Impressions Brain MRI 12/15/24 09:35 IMPRESSION: Acute nonhemorrhagic ischemia involving the right precentral gyrus and left middle frontal gyrus concerning for embolic etiology. Extensive white matter disease likely related to small vessel occlusive disease. 5 mm nodular lesion, frontal horn right lateral ventricle. Malignancy cannot be excluded. Recommend IV contrast enhanced MRI brain. Global cerebral atrophy. Electronically signed by: Vincent Pandya MD 12/15/2024 10:21 AM EDT RP Lumbar Puncture Fluoroscopy 12/19/24 10:45 IMPRESSION: Successful fluoroscopic guided L3-4 interlaminar lumbar puncture. Electronically signed by: eKvin Barahona MD 12/19/2024 12:36 PM EDT RP Head/Neck CTA 12/21/24 10:29 IMPRESSION: No main cerebral artery occlusion or embolus. Irregular calcified plaque at the proximal right ICA at representing less than 50% stenosis. No dissection. Probable 2 mm aneurysm, right A2 segment. This critical test result is communicated to: Electronically signed by: Vincent Pandya MD 12/21/2024 12:02 PM EDT RP Medications Medications Current Medications Acetaminophen (Acetaminophen 325 Mg Tablet) 650 mg PO Q6H PRN PRN Reason: Headache/Pain, Scale 1-10 Al Hydroxide/Mg Hydroxide (Magnesium Hydrox/Alum Hydrox 30 Ml Oral.Susp) 30 ml PO Q6H PRN PRN Reason: Heartburn/Nausea Alprazolam (Alprazolam 0.25 Mg Tablet) 0.125 mg PO TID PRN PRN Reason: anxietyrestlessness Amlodipine Besylate (Amlodipine Besylate 10 Mg Tablet) 10 mg PO BEDTIME [facility]; Protocol Last Admin: 01/02/25 20:49 Dose: 10 mg Aspirin (Aspirin Enteric Coated 81 Mg Tablet.Dr) 81 mg PO BEDTIME [facility] Last Admin: 01/02/25 20:49 Dose: 81 mg Atorvastatin Calcium (Atorvastatin Calcium 40 Mg Tablet) 40 mg PO BEDTIME [facility] Last Admin: 01/02/25 20:48 Dose: 40 mg Clonidine HCl (Clonidine Hcl 0.1 Mg Tablet) 0.1 mg PO BID PRN; Protocol PRN Reason: severe anxiety Last Admin: 12/18/24 20:33 Dose: 0.1 mg Divalproex Sodium (Divalproex Sodium Sprinkles 125 Mg ) 625 mg PO BID [facility] Last Admin: 01/02/25 20:46 Dose: 625 mg Emtricitabine/Tenofovir Alafenamide (Emtricitabine/Tenofov Alafenam Tablet) 1 tab PO DAILY [facility] Last Admin: 01/02/25 08:18 Dose: 1 tab Finasteride (Finasteride 5 Mg Tablet) 5 mg PO DAILY [facility] Last Admin: 01/02/25 08:19 Dose: 5 mg Hydralazine HCl (Hydralazine Hcl 25 Mg Tablet) 25 mg PO TID [facility]; Protocol Last Admin: 01/02/25 20:49 Dose: 25 mg Lactase (Lactase Tablet) 1 tab PO Q4H PRN PRN Reason: with dairy Last Admin: 12/26/24 15:00 Dose: 1 tab Losartan Potassium (Losartan Potassium 50 Mg Tablet) 100 mg PO DAILY [facility]; Protocol Last Admin: 01/02/25 08:17 Dose: 100 mg Magnesium Hydroxide (Milk Of Magnesia 30 Ml Oral.Susp) 30 ml PO DAILY PRN PRN Reason: Constipation Last Admin: 12/19/24 21:38 Dose: 30 ml Melatonin (Melatonin 3 Mg Tablet) 6 mg PO BEDTIME [facility] Last Admin: 01/02/25 20:48 Dose: 6 mg Olanzapine (Olanzapine 2.5 Mg Tablet) 2.5 mg PO Q4H PRN PRN Reason: anxiety/restlessness Last Admin: 12/31/24 17:53 Dose: 2.5 mg Olanzapine (Olanzapine 5 Mg Tablet) 5 mg PO DAILY [facility] Last Admin: 01/02/25 08:18 Dose: 5 mg Olanzapine (Olanzapine 10 Mg Tablet) 10 mg PO BEDTIME [facility] Last Admin: 01/02/25 20:49 Dose: 10 mg Omeprazole (Omeprazole 20 Mg Capsule.) 20 mg PO BEDTIME [facility] Last Admin: 01/02/25 20:49 Dose: 20 mg Tamsulosin HCl (Tamsulosin Hcl 0.4 Mg Capsule) 0.8 mg PO BEDTIME [facility] Last Admin: 01/02/25 20:46 Dose: 0.8 mg Tolterodine Tartrate (Tolterodine Tartrate La 4 Mg Cap.Er.24h) 4 mg PO DAILY [facility] Last Admin: 01/02/25 08:16 Dose: 4 mg Valacyclovir HCl (Valacyclovir Hcl 500 Mg Tablet) 500 mg PO DAILY [facility] Last Admin: 01/02/25 08:18 Dose: 500 mg Allergies Allergies Allergy/AdvReac Type Severity Reaction Status Date / Time No Known Allergies Allergy Verified 12/16/24 19:54 Assessment & Plan Assessment & Plan (1) Manic behavior: Status: Acute Code(s): F30.10 - Manic episode without psychotic symptoms, unspecified (2) Multifactorial dementia: Status: Acute Code(s): F03.90 - Unspecified dementia, unspecified severity, without behavioral disturbance, psychotic disturbance, mood disturbance, and anxiety (3) Encephalopathy: Qualifiers: Encephalopathy type: unspecified encephalopathy Qualified Code(s): G 93.40 - Encephalopathy, unspecified Status: Acute Code(s): G93.40 - Encephalopathy, unspecified Assessment and Plan: 74 years old man with acute change in mental status with psychiatric symptoms of paranoia and agitation and confusion with forgetfulness. This seems to be a relatively recent and according to him he was fine couple of months ago. This would suggest a rapidly progressive process. Differential diagnosis would include atypical encephalitis from an atypical infection, or an inflammatory process including autoimmune condition. It would also include possibility of Crutzfeld Lobito disease. His MRI of brain did reveal subtle abnormalities suggesting any of these possibilities. I recommend sending serum test for Lyme, syphilis, HIV, and blood test for sed rate. If serum or blood tests do not provide any lead, a lumbar puncture is needed to do testing on CSF. EEG is also recommended, which in some cases can also help. (4) Hypertension: Qualifiers: Hypertension type: primary hypertension Qualified Code(s): I10 - Essential (primary) hypertension Status: Acute Code(s): I10 - Essential (primary) hypertension (5) OCD (obsessive compulsive disorder): Status: Acute Code(s): F42.9 - Obsessive-compulsive disorder, unspecified Plan 74M PMH mood disorder, HTN, BPH, GERD, HSV, mood disorder presented on section 12 with evelyn/paranoia, found to be hypoxic and hypertensive initially admitted to hospital. Now admitted to [facility] for further care and stabilization for paranoia and agitation. Has been seen by neurology, Results of LP pending. Mood disorder/Paranoia Treatment per psych team Hypertension/HLD Continues on Losartan 100 mg daily, Amlodipine 10 mgs and Hydralazine 25 mgs TID Will change amlodipine to HS dosing. Low Salt diet. Patient asking for salt for his food. Avoid AV reji blockers including propranolol Continue Atorvastatin-LIpid panel WNL. Encephalopathy with abnormal MRI Follow recommendations from Neurology EEG testing negative for CJD or epileptic tendencies. ESR normal HIV, RPR, Lyme testing all negative Results of LP pending History of Bradycardia with normal MS interval Patient not on any AV reji blockers TSH WNL Will need Holter monitor outpatient and cardiology follow up BPH Continue finasteride and tamsulosin On Detrol GERD Omeprazole Avoid food triggers HSV Valacyclovir On Descovy for prep Thank you for allowing me to participate in the care of this patient. Will follow as needed. Please reconsult of any acute concerns or issues arise Assessment and Plan Patient with ongoing obsessional thoughts intense pressured speech racing thoughts. Mirtazapine 7.5 mg at bedtime see if help with insomnia and obsessional anxiety continue olanzapine 5 mg at bedtime with a 2.5 mg prn targeting agitation obsessional thoughts anxiety. Still do not have results from lumbar puncture which may suggest other causes besides vascular brain changes the patient's symptoms 12/25/24: Increase Depakote to 375 mg BID. 12/26: aware his mood is labile, agrees to increase VPA dosing to 500 BID. hyperverbal, anxious. 12/27/2024 Patient continues hyperverbal limited reasoning and executive function hard for him to stay on topic. Check Depakote level Creutzfeldt-Oseas pending for tomorrow then should have results regarding lumbar puncture. Increase a.m. olanzapine to 5 mg monitor gait 12/28/2024 CJD negative some improvement noted with Depakote and olanzapine less pressured improved anxiety somewhat better able to engage in linear conversation eating and drinking okay flesh pressure remains intermittently elevated will again ask hospitalist service to look at this has been difficult to control Further labs from lumbar puncture pending d/c planning 12/30/2024: No changes in current management plan and note some test results still pending from lumbar puncture 12/31: no changes Reason for continued inpatient stay Substantial Risk for rapid decompensation 01/01/25 Pt with some inc ability to think reason case reviewed with neurology no exact dx vascular plus degenerative? consider namenda 01/02/2025 Patient is still pending some labs neurology does not feel this is infectious or paraneoplastic. Looking at discharge to protected environment Case discussed with brother extensively reviewed option of Namenda mention consideration of the [facility] Guardian/Caregiver educated on: diagnosis, medication risk/benefits and medical condition Reason for continued inpatient stay Substantial Risk for: inability to function and rapid decompensation Time Spent With Patient Time: Total time managing care of this patient today _30___ minutes.
[2025-01-03 08:23] LABS: Ammonia 20 umol/L (13-55)
[2025-01-03 08:32] LABS: Alanine Aminotransferase 27 U/L (0-40); Albumin Level 4.2 g/dL (3.5-5.0); Alkaline Phosphatase 50 U/L (39-117); Anion Gap 13 (12-20); Aspartate Amino Transferase 27 U/L (5-37); Blood Urea Nitrogen 24 mg/dL (9-16); Calcium 9.4 mg/dL (8.4-10.2); Carbon Dioxide 24 mmol/L (22-29); Chloride 104 mmol/L (96-108); Creatinine Clr Calc Pharmacy 62.6; Estimated Glomerular Filt Rate > 60; Potassium 3.8 mmol/L (3.3-5.1); Sodium 137 mmol/L (135-145); Total Protein 6.5 g/dL (6.5-8.0)
[2025-01-03 08:35] VITALS: BP 138/71; PULSE 56; RESP 18; TEMP 36.4; O2SAT 94
[2025-01-03] MEDS: Emtricitabine/Tenofov Alafenam TABLET 1 TAB PO (09:22)
[2025-01-03] MEDS: Divalproex Sodium Sprinkles 125 MG CAP.DR.SPR 625 MG PO (09:22)
[2025-01-03 10:53] LABS: Albumin 1.9 g/dL (3.6-5.1); Albumin, CSF 25.0 mg/dL (8.0-42.0); IgG, CSF 2.7 mg/dL (0.8-7.7)
--- NOTE | 2025-01-03 11:28 | P.PNPSI_ITS ---
Subjective Subjective Date of Service: 01/03/25 Reason For Visit: inpt,evelyn Subjective Notes: Conditional Voluntary Healthcare Proxy: Yes Interim History: Patient seen psychiatric follow-up case reviewed in treatment planning chart reviewed patient seen. Case discussed with healthcare proxy and case also discussed repeatedly with neurology. Patient somewhat sedated at times reported during the day but remains pressured repeatedly asking for different things in intrusive manner at times difficulty taking in information staying on topic. Patient aware that there is interview with the are brisk tomorrow. Mental Status Exam Mental Status Exam Narrative: Patient is alert dressed in a robe ambulating without difficulty. Patient with halting speech at times asking for things and then not asking for things difficulty staying on task. Mood decide his describes his great when seen inappropriate affect also noted anxiety irritability. Intrusive demanding at times. Mood somewhat less elevated. No overt delusions difficulty taking in information understanding situation which he can for brief periods No SI or HI. Insight very limited Diagnostics Vital Signs (24Hr): Vital Signs - 24 hr 01/02/25 14:56 01/02/25 20:00 01/03/25 08:35 Temperature 98.6 F 97.5 F Pulse Rate 62 71 56 Respiratory Rate 18 18 Blood Pressure 110/57 L 158/78 H 138/71 Pulse Oximetry 94 94 Oxygen Delivery Method Room Air Room Air BMI result Body Mass Index 21.3 Labs 01/01/25 11:36 01/03/25 07:59 Labs: Laboratory Results - last 48 hr 12/19/24 12/19/24 01/01/25 11:15 14:48 11:36 WBC 5.6 RBC 3.99 L Hgb 13.9 L Hct 39.0 L MCV 97.7 MCH 34.8 H MCHC 35.6 RDW 11.5 Plt Count 215 MPV 10.0 Immature Gran % (Auto) 0.2 Neut % (Auto) 59.2 Lymph % (Auto) 28.6 [place] % (Auto) 9.3 Eos % (Auto) 2.0 Baso % (Auto) 0.7 Lymph # (Auto) 1.6 [place] # (Auto) 0.5 Eos # (Auto) 0.1 Baso # (Auto) 0.0 Abs Immat Gran (auto) 0.01 Absolute Neuts (auto) 3.3 Absolute Nucleated RBC 0.000 Nucleated RBC % (auto) 0.0 Sodium 137 Potassium 4.2 Chloride 105 Carbon Dioxide 23 Anion Gap 13 BUN 24 H Creatinine 0.91 Estim Creat Clear Calc 64.0 Estimated GFR > 60 Random Glucose 82 Calcium 9.8 Total Bilirubin AST ALT Alkaline Phosphatase Ammonia Total Protein Albumin Albumin (Send Out) 1.9 L Vitamin B12 1175 H Folate 13.7 CSF Albumin 25.0 CSF IgG Index 0.51 CSF IgG Synthesis Rate 0.4 CSF/Serum IgG Index 2.7 CSF VDRL Nonreactive CSF Lyme IgG Bands Det TNP CSF Lyme IgM Bands Det TNP Valproic Acid IgG Index 403 L 01/03/25 01/03/25 07:59 08:00 WBC RBC Hgb Hct MCV MCH MCHC RDW Plt Count MPV Immature Gran % (Auto) Neut % (Auto) Lymph % (Auto) [place] % (Auto) Eos % (Auto) Baso % (Auto) Lymph # (Auto) [place] # (Auto) Eos # (Auto) Baso # (Auto) Abs Immat Gran (auto) Absolute Neuts (auto) Absolute Nucleated RBC Nucleated RBC % (auto) Sodium 137 Potassium 3.8 Chloride 104 Carbon Dioxide 24 Anion Gap 13 BUN 24 H Creatinine 0.93 Estim Creat Clear Calc 62.6 Estimated GFR > 60 Random Glucose 81 Calcium 9.4 Total Bilirubin 0.7 AST 27 ALT 27 Alkaline Phosphatase 50 Ammonia 20 Total Protein 6.5 Albumin 4.2 Albumin (Send Out) Vitamin B12 Folate CSF Albumin CSF IgG Index CSF IgG Synthesis Rate CSF/Serum IgG Index CSF VDRL CSF Lyme IgG Bands Det CSF Lyme IgM Bands Det Valproic Acid 86.0 IgG Index Imaging Radiology Impressions: ITS Impressions Brain MRI 12/15/24 09:35 IMPRESSION: Acute nonhemorrhagic ischemia involving the right precentral gyrus and left middle frontal gyrus concerning for embolic etiology. Extensive white matter disease likely related to small vessel occlusive disease. 5 mm nodular lesion, frontal horn right lateral ventricle. Malignancy cannot be excluded. Recommend IV contrast enhanced MRI brain. Global cerebral atrophy. Electronically signed by: Vinecnt Pandya MD 12/15/2024 10:21 AM EDT RP Lumbar Puncture Fluoroscopy 12/19/24 10:45 IMPRESSION: Successful fluoroscopic guided L3-4 interlaminar lumbar puncture. Electronically signed by: Kevin Barahona MD 12/19/2024 12:36 PM EDT RP Head/Neck CTA 12/21/24 10:29 IMPRESSION: No main cerebral artery occlusion or embolus. Irregular calcified plaque at the proximal right ICA at representing less than 50% stenosis. No dissection. Probable 2 mm aneurysm, right A2 segment. This critical test result is communicated to: Electronically signed by: Vincent Pandya MD 12/21/2024 12:02 PM EDT RP Medications Medications Current Medications Acetaminophen (Acetaminophen 325 Mg Tablet) 650 mg PO Q6H PRN PRN Reason: Headache/Pain, Scale 1-10 Al Hydroxide/Mg Hydroxide (Magnesium Hydrox/Alum Hydrox 30 Ml Oral.Susp) 30 ml PO Q6H PRN PRN Reason: Heartburn/Nausea Alprazolam (Alprazolam 0.25 Mg Tablet) 0.125 mg PO TID PRN PRN Reason: anxietyrestlessness Amlodipine Besylate (Amlodipine Besylate 10 Mg Tablet) 10 mg PO BEDTIME [facility]; Protocol Last Admin: 01/02/25 20:49 Dose: 10 mg Aspirin (Aspirin Enteric Coated 81 Mg Tablet.) 81 mg PO BEDTIME [facility] Last Admin: 01/02/25 20:49 Dose: 81 mg Atorvastatin Calcium (Atorvastatin Calcium 40 Mg Tablet) 40 mg PO BEDTIME [facility] Last Admin: 01/02/25 20:48 Dose: 40 mg Clonidine HCl (Clonidine Hcl 0.1 Mg Tablet) 0.1 mg PO BID PRN; Protocol PRN Reason: severe anxiety Last Admin: 12/18/24 20:33 Dose: 0.1 mg Divalproex Sodium (Divalproex Sodium Sprinkles 125 Mg Cap.) 500 mg PO BID [facility] Emtricitabine/Tenofovir Alafenamide (Emtricitabine/Tenofov Alafenam Tablet) 1 tab PO DAILY [facility] Last Admin: 01/03/25 09:22 Dose: 1 tab Finasteride (Finasteride 5 Mg Tablet) 5 mg PO DAILY [facility] Last Admin: 01/03/25 09:24 Dose: 5 mg Hydralazine HCl (Hydralazine Hcl 25 Mg Tablet) 25 mg PO TID [facility]; Protocol Last Admin: 01/03/25 09:23 Dose: 25 mg Lactase (Lactase Tablet) 1 tab PO Q4H PRN PRN Reason: with dairy Last Admin: 12/26/24 15:00 Dose: 1 tab Losartan Potassium (Losartan Potassium 50 Mg Tablet) 100 mg PO DAILY [facility]; Protocol Last Admin: 01/03/25 09:21 Dose: 100 mg Magnesium Hydroxide (Milk Of Magnesia 30 Ml Oral.Susp) 30 ml PO DAILY PRN PRN Reason: Constipation Last Admin: 12/19/24 21:38 Dose: 30 ml Melatonin (Melatonin 3 Mg Tablet) 6 mg PO BEDTIME [facility] Last Admin: 01/02/25 20:48 Dose: 6 mg Olanzapine (Olanzapine 2.5 Mg Tablet) 2.5 mg PO Q4H PRN PRN Reason: anxiety/restlessness Last Admin: 12/31/24 17:53 Dose: 2.5 mg Olanzapine (Olanzapine 5 Mg Tablet) 5 mg PO DAILY [facility] Last Admin: 01/03/25 09:24 Dose: 5 mg Olanzapine (Olanzapine 5 Mg Tablet) 5 mg PO BEDTIME [facility] Omeprazole (Omeprazole 20 Mg Capsule.Dr) 20 mg PO BEDTIME [facility] Last Admin: 01/02/25 20:49 Dose: 20 mg Tamsulosin HCl (Tamsulosin Hcl 0.4 Mg Capsule) 0.8 mg PO BEDTIME [facility] Last Admin: 01/02/25 20:46 Dose: 0.8 mg Tolterodine Tartrate (Tolterodine Tartrate La 4 Mg Cap.Er.24h) 4 mg PO DAILY [facility] Last Admin: 01/03/25 09:23 Dose: 4 mg Valacyclovir HCl (Valacyclovir Hcl 500 Mg Tablet) 500 mg PO DAILY [facility] Last Admin: 01/03/25 09:24 Dose: 500 mg Allergies Allergies Allergy/AdvReac Type Severity Reaction Status Date / Time No Known Allergies Allergy Verified 12/16/24 19:54 Assessment & Plan Assessment & Plan (1) Manic behavior: Status: Acute Code(s): F30.10 - Manic episode without psychotic symptoms, unspecified (2) Multifactorial dementia: Status: Acute Code(s): F03.90 - Unspecified dementia, unspecified severity, without behavioral disturbance, psychotic disturbance, mood disturbance, and anxiety (3) Encephalopathy: Qualifiers: Encephalopathy type: unspecified encephalopathy Qualified Code(s): G 93.40 - Encephalopathy, unspecified Status: Acute Code(s): G93.40 - Encephalopathy, unspecified Assessment and Plan: 74 years old man with acute change in mental status with psychiatric symptoms of paranoia and agitation and confusion with forgetfulness. This seems to be a relatively recent and according to him he was fine couple of months ago. This would suggest a rapidly progressive process. Differential diagnosis would include atypical encephalitis from an atypical infection, or an inflammatory process including autoimmune condition. It would also include possibility of [place]utzfeld L[place]ito disease. His MRI of brain did reveal subtle abnormalities suggesting any of these possibilities. I recommend sending serum test for Lyme, syphilis, HIV, and blood test for sed rate. If serum or blood tests do not provide any lead, a lumbar puncture is needed to do testing on CSF. EEG is also recommended, which in some cases can also help. (4) Hypertension: Qualifiers: Hypertension type: primary hypertension Qualified Code(s): I10 - Essential (primary) hypertension Status: Acute Code(s): I10 - Essential (primary) hypertension (5) OCD (obsessive compulsive disorder): Status: Acute Code(s): F42.9 - Obsessive-compulsive disorder, unspecified Plan 74M PMH mood disorder, HTN, BPH, GERD, HSV, mood disorder presented on section 12 with evelyn/paranoia, found to be hypoxic and hypertensive initially admitted to hospital. Now admitted to [facility] for further care and stabilization for paranoia and agitation. Has been seen by neurology, Results of LP pending. Mood disorder/Paranoia Treatment per psych team Hypertension/HLD Continues on Losartan 100 mg daily, Amlodipine 10 mgs and Hydralazine 25 mgs TID Will change amlodipine to HS dosing. Low Salt diet. Patient asking for salt for his food. Avoid AV reji blockers including propranolol Continue Atorvastatin-LIpid panel WNL. Encephalopathy with abnormal MRI Follow recommendations from Neurology EEG testing negative for CJD or epileptic tendencies. ESR normal HIV, RPR, Lyme testing all negative Results of LP pending History of Bradycardia with normal WA interval Patient not on any AV reji blockers TSH WNL Will need Holter monitor outpatient and cardiology follow up BPH Continue finasteride and tamsulosin On Detrol GERD Omeprazole Avoid food triggers HSV Valacyclovir On Descovy for prep Thank you for allowing me to participate in the care of this patient. Will follow as needed. Please reconsult of any acute concerns or issues arise Assessment and Plan Patient with ongoing obsessional thoughts intense pressured speech racing thoughts. Mirtazapine 7.5 mg at bedtime see if help with insomnia and obsessional anxiety continue olanzapine 5 mg at bedtime with a 2.5 mg prn targeting agitation obsessional thoughts anxiety. Still do not have results from lumbar puncture which may suggest other causes besides vascular brain changes the patient's symptoms 12/25/24: Increase Depakote to 375 mg BID. 12/26: aware his mood is labile, agrees to increase VPA dosing to 500 BID. hyperverbal, anxious. 12/27/2024 Patient continues hyperverbal limited reasoning and executive function hard for him to stay on topic. Check Depakote level [place] pending for tomorrow then should have results regarding lumbar puncture. Increase a.m. olanzapine to 5 mg monitor gait 12/28/2024 CJD negative some improvement noted with Depakote and olanzapine less pressured improved anxiety somewhat better able to engage in linear conversation eating and drinking okay flesh pressure remains intermittently elevated will again ask hospitalist service to look at this has been difficult to control Further labs from lumbar puncture pending d/c planning 12/30/2024: No changes in current management plan and note some test results still pending from lumbar puncture 12/31: no changes Reason for continued inpatient stay Substantial Risk for rapid decompensation 01/01/25 Pt with some inc ability to think reason case reviewed with neurology no exact dx vascular plus degenerative? consider namenda 01/02/2025 Patient is still pending some labs neurology does not feel this is infectious or paraneoplastic. Looking at discharge to protected environment Case discussed with brother extensively reviewed option of Namenda mention consideration of the [facility] 01/03/2025 Case reviewed with neurology and discussed still unclear diagnosis and patient's mental status remains severely impaired. Discussion held regarding possibility of transferred to [facility] neurologist felt we should wait and see if amyloid studies come back positive and healthcare proxy Sai did have a discussion with Dr. López regarding above possibility. Consideration could be given to attempt at PET scan amyloid PET scan at some point neurologist felt only AYAD Remy blood work was positive. Discussed option of Namenda will start tomorrow monitor for any adverse effects hopefully may help with cognition and behavioral issues Reason for continued inpatient stay Substantial Risk for: inability to function, rapid decompensation and med/psych decompensation Time Spent With Patient Time: Total time managing care of this patient today ____ minutes.
[2025-01-03 13:00] VITALS: BMI 20.9
[2025-01-03 15:10] VITALS: BP 159/84; PULSE 87
[2025-01-03 20:00] VITALS: BP 160/84; PULSE 80; RESP 18; TEMP 36.7; O2SAT 96
[2025-01-03] MEDS: Divalproex Sodium Sprinkles 125 MG CAP.DR.SPR 500 MG PO (22:01)
[2025-01-03] MEDS: Aspirin Enteric Coated 81 MG TABLET.DR PO (22:02)
[2025-01-04 08:00] VITALS: BP 148/70; PULSE 73; RESP 18; TEMP 36.3; O2SAT 93
[2025-01-04 08:24] VITALS: BMI 20.5
[2025-01-04] MEDS: Divalproex Sodium Sprinkles 125 MG CAP.DR.SPR 500 MG PO ×2 (08:51→20:26)
[2025-01-04 08:53] VITALS: BP 148/70
[2025-01-04] MEDS: Emtricitabine/Tenofov Alafenam TABLET 1 TAB PO (08:54)
[2025-01-04 08:55] VITALS: BP 148/70
[2025-01-04 14:48] VITALS: BP 149/81
--- NOTE | 2025-01-04 17:07 | HO.PSYCHPN ---
Subjective Subjective Date of Service: 01/04/25 Reason For Visit: inpt,evelyn Subjective Notes: Conditional Voluntary Healthcare Proxy: Yes Interim History: Pt seen in follow-up case reviewed with healthcare proxy case reviewed with staff in treatment planning. Patient seen by assisted living and appears to have been accepted. Patient's case reviewed with neurology . Referral to [facility] [place] process started Medication Compliance: Yes Review of Systems Improved control of hypertension Mental Status Exam Mental Status Exam Narrative: Patient cooperative to interview somewhat expansive in manner continues to wear pink robdarren knows he is at [facility] unable or unwilling to engage in any discussion regarding his symptom 0 problems that brought him to the hospital. 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 Impulse control adequate not threatening or aggressive Diagnostics Vital Signs (24Hr): Vital Signs - 24 hr 01/03/25 20:00 01/04/25 08:00 01/04/25 08:53 Temperature 98.1 F 97.3 F Pulse Rate 80 73 Respiratory Rate 18 18 Blood Pressure 160/84 H 148/70 H 148/70 H Pulse Oximetry 96 93 Oxygen Delivery Method Room Air Room Air 01/04/25 08:55 01/04/25 14:48 Temperature Pulse Rate Respiratory Rate Blood Pressure 148/70 H 149/81 H Pulse Oximetry Oxygen Delivery Method BMI result Body Mass Index 20.5 Labs 01/01/25 11:36 01/03/25 07:59 Labs: Laboratory Results - last 48 hr 12/19/24 12/19/24 01/03/25 11:15 14:48 07:59 Sodium 137 Potassium 3.8 Chloride 104 Carbon Dioxide 24 Anion Gap 13 BUN 24 H Creatinine 0.93 Estim Creat Clear Calc 62.6 Estimated GFR > 60 Random Glucose 81 Calcium 9.4 Total Bilirubin 0.7 AST 27 ALT 27 Alkaline Phosphatase 50 Ammonia 20 Total Protein 6.5 Albumin 4.2 Albumin (Send Out) 1.9 L CSF Albumin 25.0 CSF IgG Index 0.51 CSF IgG Synthesis Rate 0.4 CSF Immunofixation see note CSF Oligoclonal Bands Absent CSF/Serum IgG Index 2.7 Valproic Acid IgG Index 403 L 01/03/25 08:00 Sodium Potassium Chloride Carbon Dioxide Anion Gap BUN Creatinine Estim Creat Clear Calc Estimated GFR Random Glucose Calcium Total Bilirubin AST ALT Alkaline Phosphatase Ammonia Total Protein Albumin Albumin (Send Out) CSF Albumin CSF IgG Index CSF IgG Synthesis Rate CSF Immunofixation CSF Oligoclonal Bands CSF/Serum IgG Index Valproic Acid 86.0 IgG Index Imaging Radiology Impressions: ITS Impressions Brain MRI 12/15/24 09:35 IMPRESSION: Acute nonhemorrhagic ischemia involving the right precentral gyrus and left middle frontal gyrus concerning for embolic etiology. Extensive white matter disease likely related to small vessel occlusive disease. 5 mm nodular lesion, frontal horn right lateral ventricle. Malignancy cannot be excluded. Recommend IV contrast enhanced MRI brain. Global cerebral atrophy. Electronically signed by: Vincent Pandya MD 12/15/2024 10:21 AM EDT RP Lumbar Puncture Fluoroscopy 12/19/24 10:45 IMPRESSION: Successful fluoroscopic guided L3-4 interlaminar lumbar puncture. Electronically signed by: Kevin Barahona MD 12/19/2024 12:36 PM EDT RP Head/Neck CTA 12/21/24 10:29 IMPRESSION: No main cerebral artery occlusion or embolus. Irregular calcified plaque at the proximal right ICA at representing less than 50% stenosis. No dissection. Probable 2 mm aneurysm, right A2 segment. This critical test result is communicated to: Electronically signed by: Vincent Pandya MD 12/21/2024 12:02 PM EDT RP Medications Medications Current Medications Acetaminophen (Acetaminophen 325 Mg Tablet) 650 mg PO Q6H PRN PRN Reason: Headache/Pain, Scale 1-10 Al Hydroxide/Mg Hydroxide (Magnesium Hydrox/Alum Hydrox 30 Ml Oral.Susp) 30 ml PO Q6H PRN PRN Reason: Heartburn/Nausea Alprazolam (Alprazolam 0.25 Mg Tablet) 0.125 mg PO TID PRN PRN Reason: anxietyrestlessness Amlodipine Besylate (Amlodipine Besylate 10 Mg Tablet) 10 mg PO BEDTIME OTILIA; Protocol Last Admin: 01/03/25 22:01 Dose: 10 mg Aspirin (Aspirin Enteric Coated 81 Mg Tablet.Dr) 81 mg PO BEDTIME OTILIA Last Admin: 01/03/25 22:02 Dose: 81 mg Atorvastatin Calcium (Atorvastatin Calcium 40 Mg Tablet) 40 mg PO BEDTIME OTILIA Last Admin: 01/03/25 22:00 Dose: 40 mg Clonidine HCl (Clonidine Hcl 0.1 Mg Tablet) 0.1 mg PO BID PRN; Protocol PRN Reason: severe anxiety Last Admin: 12/18/24 20:33 Dose: 0.1 mg Divalproex Sodium (Divalproex Sodium Sprinkles 125 Mg ) 500 mg PO BID OTILIA Last Admin: 01/04/25 08:51 Dose: 500 mg Emtricitabine/Tenofovir Alafenamide (Emtricitabine/Tenofov Alafenam Tablet) 1 tab PO DAILY OTILIA Last Admin: 01/04/25 08:54 Dose: 1 tab Finasteride (Finasteride 5 Mg Tablet) 5 mg PO DAILY OTILIA Last Admin: 01/04/25 08:53 Dose: 5 mg Hydralazine HCl (Hydralazine Hcl 25 Mg Tablet) 25 mg PO TID OTILIA; Protocol Last Admin: 01/04/25 14:48 Dose: 25 mg Lactase (Lactase Tablet) 1 tab PO Q4H PRN PRN Reason: with dairy Last Admin: 12/26/24 15:00 Dose: 1 tab Losartan Potassium (Losartan Potassium 50 Mg Tablet) 100 mg PO DAILY OTILIA; Protocol Last Admin: 01/04/25 08:55 Dose: 100 mg Magnesium Hydroxide (Milk Of Magnesia 30 Ml Oral.Susp) 30 ml PO DAILY PRN PRN Reason: Constipation Last Admin: 12/19/24 21:38 Dose: 30 ml Melatonin (Melatonin 3 Mg Tablet) 6 mg PO BEDTIME OTILIA Last Admin: 01/03/25 22:00 Dose: 6 mg Olanzapine (Olanzapine 2.5 Mg Tablet) 2.5 mg PO Q4H PRN PRN Reason: anxiety/restlessness Last Admin: 01/03/25 15:14 Dose: 2.5 mg Olanzapine (Olanzapine 5 Mg Tablet) 5 mg PO DAILY OTILIA Last Admin: 01/04/25 08:51 Dose: 5 mg Olanzapine (Olanzapine 5 Mg Tablet) 5 mg PO BEDTIME OTILIA Last Admin: 01/03/25 22:01 Dose: 5 mg Omeprazole (Omeprazole 20 Mg Capsule.) 20 mg PO BEDTIME OTILIA Last Admin: 01/03/25 22:00 Dose: 20 mg Tamsulosin HCl (Tamsulosin Hcl 0.4 Mg Capsule) 0.8 mg PO BEDTIME [facility] Last Admin: 01/03/25 22:01 Dose: 0.8 mg Tolterodine Tartrate (Tolterodine Tartrate La 4 Mg Cap.Er.24h) 4 mg PO DAILY [facility] Last Admin: 01/04/25 08:56 Dose: 4 mg Valacyclovir HCl (Valacyclovir Hcl 500 Mg Tablet) 500 mg PO DAILY [facility] Last Admin: 01/04/25 08:52 Dose: 500 mg Allergies Allergies Allergy/AdvReac Type Severity Reaction Status Date / Time No Known Allergies Allergy Verified 12/16/24 19:54 Assessment & Plan Assessment & Plan (1) Manic behavior: Status: Acute Code(s): F30.10 - Manic episode without psychotic symptoms, unspecified (2) Multifactorial dementia: Status: Acute Code(s): F03.90 - Unspecified dementia, unspecified severity, without behavioral disturbance, psychotic disturbance, mood disturbance, and anxiety (3) Encephalopathy: Qualifiers: Encephalopathy type: unspecified encephalopathy Qualified Code(s): G93.40 - Encephalopathy, unspecified Status: Acute Code(s): G93.40 - Encephalopathy, unspecified Assessment and Plan: 74 years old man with acute change in mental status with psychiatric symptoms of paranoia and agitation and confusion with forgetfulness. This seems to be a relatively recent and according to him he was fine couple of months ago. This would suggest a rapidly progressive process. Differential diagnosis would include atypical encephalitis from an atypical infection, or an inflammatory process including autoimmune condition. It would also include possibility of Crutzfeld Lobito disease. His MRI of brain did reveal subtle abnormalities suggesting any of these possibilities. I recommend sending serum test for Lyme, syphilis, HIV, and blood test for sed rate. If serum or blood tests do not provide any lead, a lumbar puncture is needed to do testing on CSF. EEG is also recommended, which in some cases can also help. (4) Hypertension: Qualifiers: Hypertension type: primary hypertension Qualified Code(s): I10 - Essential (primary) hypertension Status: Acute Code(s): I10 - Essential (primary) hypertension (5) OCD (obsessive compulsive disorder): Status: Acute Code(s): F42.9 - Obsessive-compulsive disorder, unspecified Plan 74M PMH mood disorder, HTN, BPH, GERD, HSV, mood disorder presented on section 12 with evelyn/paranoia, found to be hypoxic and hypertensive initially admitted to hospital. Now admitted to [facility] for further care and stabilization for paranoia and agitation. Has been seen by neurology, Results of LP pending. Mood disorder/Paranoia Treatment per psych team Hypertension/HLD Continues on Losartan 100 mg daily, Amlodipine 10 mgs and Hydralazine 25 mgs TID Will change amlodipine to HS dosing. Low Salt diet. Patient asking for salt for his food. Avoid AV reji blockers including propranolol Continue Atorvastatin-LIpid panel WNL. Encephalopathy with abnormal MRI Follow recommendations from Neurology EEG testing negative for CJD or epileptic tendencies. ESR normal HIV, RPR, Lyme testing all negative Results of LP pending History of Bradycardia with normal HI interval Patient not on any AV reji blockers TSH WNL Will need Holter monitor outpatient and cardiology follow up BPH Continue finasteride and tamsulosin On Detrol GERD Omeprazole Avoid food triggers HSV Valacyclovir On Descovy for prep Thank you for allowing me to participate in the care of this patient. Will follow as needed. Please reconsult of any acute concerns or issues arise Assessment and Plan Patient with ongoing obsessional thoughts intense pressured speech racing thoughts. Mirtazapine 7.5 mg at bedtime see if help with insomnia and obsessional anxiety continue olanzapine 5 mg at bedtime with a 2.5 mg prn targeting agitation obsessional thoughts anxiety. Still do not have results from lumbar puncture which may suggest other causes besides vascular brain changes the patient's symptoms 12/25/24: Increase Depakote to 375 mg BID. 12/26: aware his mood is labile, agrees to increase VPA dosing to 500 BID. hyperverbal, anxious. 12/27/2024 Patient continues hyperverbal limited reasoning and executive function hard for him to stay on topic. Check Depakote level Creutzfeldt-Ose[place] pending for tomorrow then should have results regarding lumbar puncture. Increase a.m. olanzapine to 5 mg monitor gait 12/28/2024 CJD negative some improvement noted with Depakote and olanzapine less pressured improved anxiety somewhat better able to engage in linear conversation eating and drinking okay flesh pressure remains intermittently elevated will again ask hospitalist service to look at this has been difficult to control Further labs from lumbar puncture pending d/c planning 12/30/2024: No changes in current management plan and note some test results still pending from lumbar puncture 12/31: no changes Reason for continued inpatient stay Substantial Risk for rapid decompensation 01/01/25 Pt with some inc ability to think reason case reviewed with neurology no exact dx vascular plus degenerative? consider namenda 01/02/2025 Patient is still pending some labs neurology does not feel this is infectious or paraneoplastic. Looking at discharge to protected environment Case discussed with brother extensively reviewed option of Namenda mention consideration of the [place] 01/03/2025 Case reviewed with neurology and discussed still unclear diagnosis and patient's mental status remains severely impaired. Discussion held regarding possibility of transferred to [facility] neurologist felt we should wait and see if amyloid studies come back positive and healthcare proxy Sai did have a discussion with Dr. López regarding above possibility. Consideration could be given to attempt at PET scan amyloid PET scan at some point neurologist felt only Jonel blood work was positive. Discussed option of Namenda will start tomorrow monitor for any adverse effects hopefully may help with cognition and behavioral issues 01/04/2025 Start Namenda 5 mg daily referral process started regarding [facility] [place] case reviewed with neurology and with healthcare proxy. Continue Depakote olanzapine seems somewhat helpful in decreasing agitation irritability and anxiety. Still pending results from amyloid Regarding hypertension in better control also being followed by hospitalist service Guardian/Caregiver educated on: diagnosis, medication risk/benefits and medical condition Reason for continued inpatient stay Substantial Risk for: inability to function, rapid decompensation and med/psych decompensation Time Spent With Patient Time: Total time managing care of this patient today _35___ minutes.
[2025-01-04 20:00] VITALS: BP 132/66; PULSE 80; RESP 16; TEMP 36.4; O2SAT 96
[2025-01-04] MEDS: Aspirin Enteric Coated 81 MG TABLET.DR PO (20:29)
[2025-01-05 08:00] VITALS: BP 139/74; PULSE 79; RESP 16; TEMP 37; O2SAT 95
[2025-01-05 09:05] VITALS: BP 139/74
[2025-01-05 09:06] VITALS: BP 139/74
[2025-01-05] MEDS: Divalproex Sodium Sprinkles 125 MG CAP.DR.SPR 500 MG PO ×2 (09:06→20:32)
[2025-01-05] MEDS: Emtricitabine/Tenofov Alafenam TABLET 1 TAB PO (09:06)
--- NOTE | 2025-01-05 13:32 | HO.PSYCHPN ---
Subjective Subjective Date of Service: 01/05/25 Reason For Visit: confusion agitation Subjective Notes: Conditional Voluntary Healthcare Proxy: Yes Interim History: Patient seen psychiatric follow-up chart reviewed case reviewed with treatment team. Patient is somewhat less agitated and pressured has been more lethargic appears to be cycling down from intense pressured state he had been in. Blood pressure in better control has been started on Namenda Referral information sent to [facility] and conversation held with the transfer center. They are on a high level of acuity and will only accept emergency surgery cases at this time Medication Compliance: Yes Side effects from medications: Yes (? 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 knows he is in hospital intermittent understanding that something neurological is happening to him patient did seem to understand that he spoken to people to try to set up a place to live after discharge at other times talking about returning home Impulse control adequate not threatening or aggressive much less pressured difficulty concentrating and retaining information patient has where he has healthcare proxy gene his brother Diagnostics Vital Signs (24Hr): Vital Signs - 24 hr 01/04/25 14:48 01/04/25 20:00 01/05/25 08:00 Temperature 97.5 F 98.6 F Pulse Rate 80 79 Respiratory Rate 16 16 Blood Pressure 149/81 H 132/66 139/74 Pulse Oximetry 96 95 Oxygen Delivery Method Room Air Room Air 01/05/25 09:05 01/05/25 09:06 Temperature Pulse Rate Respiratory Rate Blood Pressure 139/74 139/74 Pulse Oximetry Oxygen Delivery Method BMI result Body Mass Index 20.5 Labs 01/01/25 11:36 01/03/25 07:59 Labs: Laboratory Results - last 48 hr 12/19/24 12/19/24 11:15 14:48 CSF Immunofixation see note CSF Oligoclonal Bands Absent Imaging Radiology Impressions: ITS Impressions Brain MRI 12/15/24 09:35 IMPRESSION: Acute nonhemorrhagic ischemia involving the right precentral gyrus and left middle frontal gyrus concerning for embolic etiology. Extensive white matter disease likely related to small vessel occlusive disease. 5 mm nodular lesion, frontal horn right lateral ventricle. Malignancy cannot be excluded. Recommend IV contrast enhanced MRI brain. Global cerebral atrophy. Electronically signed by: Vincent Pandya MD 12/15/2024 10:21 AM EDT RP Lumbar Puncture Fluoroscopy 12/19/24 10:45 IMPRESSION: Successful fluoroscopic guided L3-4 interlaminar lumbar puncture. Electronically signed by: Kevin Barahona MD 12/19/2024 12:36 PM EDT RP Head/Neck CTA 12/21/24 10:29 IMPRESSION: No main cerebral artery occlusion or embolus. Irregular calcified plaque at the proximal right ICA at representing less than 50% stenosis. No dissection. Probable 2 mm aneurysm, right A2 segment. This critical test result is communicated to: Electronically signed by: Vincent Pandya MD 12/21/2024 12:02 PM EDT RP Medications Medications Current Medications Acetaminophen (Acetaminophen 325 Mg Tablet) 650 mg PO Q6H PRN PRN Reason: Headache/Pain, Scale 1-10 Al Hydroxide/Mg Hydroxide (Magnesium Hydrox/Alum Hydrox 30 Ml Oral.Susp) 30 ml PO Q6H PRN PRN Reason: Heartburn/Nausea Alprazolam (Alprazolam 0.25 Mg Tablet) 0.125 mg PO TID PRN PRN Reason: anxietyrestlessness Amlodipine Besylate (Amlodipine Besylate 10 Mg Tablet) 10 mg PO BEDTIME OTILIA; Protocol Last Admin: 01/04/25 20:29 Dose: 10 mg Aspirin (Aspirin Enteric Coated 81 Mg Tablet.) 81 mg PO BEDTIME OTILIA Last Admin: 01/04/25 20:29 Dose: 81 mg Atorvastatin Calcium (Atorvastatin Calcium 40 Mg Tablet) 40 mg PO BEDTIME OTILIA Last Admin: 01/04/25 20:29 Dose: 40 mg Clonidine HCl (Clonidine Hcl 0.1 Mg Tablet) 0.1 mg PO BID PRN; Protocol PRN Reason: severe anxiety Last Admin: 12/18/24 20:33 Dose: 0.1 mg Divalproex Sodium (Divalproex Sodium Sprinkles 125 Mg Cap.) 500 mg PO BID OTILIA Last Admin: 01/05/25 09:06 Dose: 500 mg Emtricitabine/Tenofovir Alafenamide (Emtricitabine/Tenofov Alafenam Tablet) 1 tab PO DAILY OTILIA Last Admin: 01/05/25 09:06 Dose: 1 tab Finasteride (Finasteride 5 Mg Tablet) 5 mg PO DAILY OTILIA Last Admin: 01/05/25 09:07 Dose: 5 mg Hydralazine HCl (Hydralazine Hcl 25 Mg Tablet) 25 mg PO TID OTILIA; Protocol Last Admin: 01/05/25 09:06 Dose: 25 mg Lactase (Lactase Tablet) 1 tab PO Q4H PRN PRN Reason: with dairy Last Admin: 12/26/24 15:00 Dose: 1 tab Losartan Potassium (Losartan Potassium 50 Mg Tablet) 100 mg PO DAILY OTILIA; Protocol Last Admin: 01/05/25 09:05 Dose: 100 mg Magnesium Hydroxide (Milk Of Magnesia 30 Ml Oral.Susp) 30 ml PO DAILY PRN PRN Reason: Constipation Last Admin: 12/19/24 21:38 Dose: 30 ml Melatonin (Melatonin 3 Mg Tablet) 6 mg PO BEDTIME OTILIA Last Admin: 01/04/25 20:29 Dose: 6 mg Memantine (Memantine Hcl 5 Mg Tablet) 5 mg PO DAILY OTILIA Last Admin: 01/05/25 09:05 Dose: 5 mg Olanzapine (Olanzapine 2.5 Mg Tablet) 2.5 mg PO Q4H PRN PRN Reason: anxiety/restlessness Last Admin: 01/03/25 15:14 Dose: 2.5 mg Olanzapine (Olanzapine 5 Mg Tablet) 5 mg PO DAILY [facility] Last Admin: 01/05/25 09:06 Dose: 5 mg Olanzapine (Olanzapine 5 Mg Tablet) 5 mg PO BEDTIME OTILIA Last Admin: 01/04/25 20:29 Dose: 5 mg Omeprazole (Omeprazole 20 Mg Capsule.Dr) 20 mg PO BEDTIME OTILIA Last Admin: 01/04/25 20:27 Dose: 20 mg Tamsulosin HCl (Tamsulosin Hcl 0.4 Mg Capsule) 0.8 mg PO BEDTIME OTILIA Last Admin: 01/04/25 20:27 Dose: 0.8 mg Tolterodine Tartrate (Tolterodine Tartrate La 4 Mg Cap.Er.24h) 4 mg PO DAILY [facility] Last Admin: 01/05/25 09:06 Dose: 4 mg Valacyclovir HCl (Valacyclovir Hcl 500 Mg Tablet) 500 mg PO DAILY OTILIA Last Admin: 01/05/25 09:05 Dose: 500 mg Allergies Allergies Allergy/AdvReac Type Severity Reaction Status Date / Time No Known Allergies Allergy Verified 12/16/24 19:54 Assessment & Plan Assessment & Plan (1) Major 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, with agitation: Status: Acute Code(s): F02.811 - Dementia in other diseases classified elsewhere, unspecified severity, with agitation (2) Encephalopathy: Qualifiers: Encephalopathy type: unspecified encephalopathy Qualified Code(s): G93.40 - Encephalopathy, unspecified Status: Acute Code(s): G93.40 - Encephalopathy, unspecified Assessment and Plan: 74 years old man with acute change in mental status with psychiatric symptoms of paranoia and agitation and confusion with forgetfulness. This seems to be a relatively recent and according to him he was fine couple of months ago. This would suggest a rapidly progressive process. Differential diagnosis would include atypical encephalitis from an atypical infection, or an inflammatory process including autoimmune condition. It would also include possibility of Crutzfeld Lobito disease. His MRI of brain did reveal subtle abnormalities suggesting any of these possibilities. I recommend sending serum test for Lyme, syphilis, HIV, and blood test for sed rate. If serum or blood tests do not provide any lead, a lumbar puncture is needed to do testing on CSF. EEG is also recommended, which in some cases can also help. (3) Manic behavior: Status: Acute Code(s): F30.10 - Manic episode without psychotic symptoms, unspecified (4) Hypertension: Qualifiers: Hypertension type: primary hypertension Qualified Code(s): I10 - Essential (primary) hypertension Status: Acute Code(s): I10 - Essential (primary) hypertension (5) OCD (obsessive compulsive disorder): Status: Acute Code(s): F42.9 - Obsessive-compulsive disorder, unspecified Plan 74M PMH mood disorder, HTN, BPH, GERD, HSV, mood disorder presented on section 12 with evelyn/paranoia, found to be hypoxic and hypertensive initially admitted to hospital. Now admitted to [facility] for further care and stabilization for paranoia and agitation. Has been seen by neurology, Results of LP pending. Mood disorder/Paranoia Treatment per psych team Hypertension/HLD Continues on Losartan 100 mg daily, Amlodipine 10 mgs and Hydralazine 25 mgs TID Will change amlodipine to HS dosing. Low Salt diet. Patient asking for salt for his food. Avoid AV reji blockers including propranolol Continue Atorvastatin-LIpid panel WNL. Encephalopathy with abnormal MRI Follow recommendations from Neurology EEG testing negative for CJD or epileptic tendencies. ESR normal HIV, RPR, Lyme testing all negative Results of LP pending History of Bradycardia with normal MA interval Patient not on any AV reji blockers TSH WNL Will need Holter monitor outpatient and cardiology follow up BPH Continue finasteride and tamsulosin On Detrol GERD Omeprazole Avoid food triggers HSV Valacyclovir On Descovy for prep Thank you for allowing me to participate in the care of this patient. Will follow as needed. Please reconsult of any acute concerns or issues arise Assessment and Plan Patient with ongoing obsessional thoughts intense pressured speech racing thoughts. Mirtazapine 7.5 mg at bedtime see if help with insomnia and obsessional anxiety continue olanzapine 5 mg at bedtime with a 2.5 mg prn targeting agitation obsessional thoughts anxiety. Still do not have results from lumbar puncture which may suggest other causes besides vascular brain changes the patient's symptoms 12/25/24: Increase Depakote to 375 mg BID. 12/26: aware his mood is labile, agrees to increase VPA dosing to 500 BID. hyperverbal, anxious. 12/27/2024 Patient continues hyperverbal limited reasoning and executive function hard for him to stay on topic. Check Depakote level [place]utzfeldt-Ose[place] pending for tomorrow then should have results regarding lumbar puncture. Increase a.m. olanzapine to 5 mg monitor gait 12/28/2024 CJD negative some improvement noted with Depakote and olanzapine less pressured improved anxiety somewhat better able to engage in linear conversation eating and drinking okay flesh pressure remains intermittently elevated will again ask hospitalist service to look at this has been difficult to control Further labs from lumbar puncture pending d/c planning 12/30/2024: No changes in current management plan and note some test results still pending from lumbar puncture 12/31: no changes Reason for continued inpatient stay Substantial Risk for rapid decompensation 01/01/25 Pt with some inc ability to think reason case reviewed with neurology no exact dx vascular plus degenerative? consider namenda 01/02/2025 Patient is still pending some labs neurology does not feel this is infectious or paraneoplastic. Looking at discharge to protected environment Case discussed with brother extensively reviewed option of Namenda mention consideration of the [place] 01/03/2025 Case reviewed with neurology and discussed still unclear diagnosis and patient's mental status remains severely impaired. Discussion held regarding possibility of transferred to [facility] later neurologist felt we should wait and see if amyloid studies come back positive and healthcare proxy Sai did have a discussion with Dr. López regarding above possibility. Consideration could be given to attempt at PET scan amyloid PET scan at some point neurologist felt only AYAD Remy blood work was positive. Discussed option of Namenda will start tomorrow monitor for any adverse effects hopefully may help with cognition and behavioral issues 01/04/2025 Start Namenda 5 mg daily referral process started regarding [facility] case reviewed with neurology and with healthcare proxy. Continue Depakote olanz patient has apine seems somewhat helpful in decreasing agitation irritability and anxiety. Still pending results from amyloid Regarding hypertension in better control also being followed by hospitalist service 01/05/25 Patient's case reviewed with treatment team reviewed with healthcare proxy. Patient has been referred to [facility] they only have emergency meds for surgery extensive material sent case distress discussed with transfer team Deborah oneal are still pending results from amyloid and tau testing patient has been more lethargic remains on olanzapine b.i.d. and Depakote 500 b.i.d.. Will lower morning olanzapine Guardian/Caregiver educated on: diagnosis, medication risk/benefits and medical condition Reason for continued inpatient stay Substantial Risk for: inability to function, rapid decompensation and med/psych decompensation Time Spent With Patient Time: Total time managing care of this patient today __45__ minutes.
[2025-01-05 16:05] VITALS: BP 124/65
[2025-01-05 20:00] VITALS: BP 146/74; PULSE 85; RESP 16; TEMP 36.7; O2SAT 93
[2025-01-05] MEDS: Aspirin Enteric Coated 81 MG TABLET.DR PO (20:31)
[2025-01-06 08:49] VITALS: BP 118/63; PULSE 72; RESP 18; TEMP 36.9; O2SAT 97
[2025-01-06] MEDS: Divalproex Sodium Sprinkles 125 MG CAP.DR.SPR 500 MG PO ×2 (09:13→21:08)
[2025-01-06] MEDS: Emtricitabine/Tenofov Alafenam TABLET 1 TAB PO (09:13)
--- NOTE | 2025-01-06 14:20 | P.PNPSI_ITS ---
Subjective Subjective Date of Service: 01/06/25 Reason For Visit: confusion agitation Subjective Notes: Conditional Voluntary Healthcare Proxy: Yes Guardianship: No Medical Problems Affecting Mental Status: No Interim History: He was seen in information writer's office. Toelrated brief encoutner. Confused, suspicious, wondering about surveillance of the unit. Medication Compliance: Yes Side effects from medications: No Attending Groups: Intermittent Review of Systems Acute medical concerns: No Medical Review of Systems: unchanged Mental Status Exam Mental Status Exam Narrative: Patient cooperative to interview somewhat expansive in manner continues to wear pink robe knows he is at [facility] unable or unwilling to engage in any discussion regarding his symptom 0 problems that brought him to the hospital. 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 Impulse control adequate not threatening or aggressive Diagnostics Vital Signs (24Hr): Vital Signs - 24 hr 01/05/25 16:05 01/05/25 20:00 01/06/25 08:49 Temperature 98.1 F 98.4 F Pulse Rate 85 72 Respiratory Rate 16 18 Blood Pressure 124/65 146/74 H 118/63 Pulse Oximetry 93 97 Oxygen Delivery Method Room Air Room Air BMI result Body Mass Index 20.5 Labs 01/01/25 11:36 01/03/25 07:59 Labs: Laboratory Results - last 48 hr 12/19/24 11:15 CSF Immunofixation see note Imaging Radiology Impressions: ITS Impressions Brain MRI 12/15/24 09:35 IMPRESSION: Acute nonhemorrhagic ischemia involving the right precentral gyrus and left middle frontal gyrus concerning for embolic etiology. Extensive white matter disease likely related to small vessel occlusive disease. 5 mm nodular lesion, frontal horn right lateral ventricle. Malignancy cannot be excluded. Recommend IV contrast enhanced MRI brain. Global cerebral atrophy. Electronically signed by: Vincent Pandya MD 12/15/2024 10:21 AM EDT Lumbar Puncture Fluoroscopy 12/19/24 10:45 IMPRESSION: Successful fluoroscopic guided L3-4 interlaminar lumbar puncture. Electronically signed by: Kevin Barahona MD 12/19/2024 12:36 PM EDT RP Head/Neck CTA 12/21/24 10:29 IMPRESSION: No main cerebral artery occlusion or embolus. Irregular calcified plaque at the proximal right ICA at representing less than 50% stenosis. No dissection. Probable 2 mm aneurysm, right A2 segment. This critical test result is communicated to: Electronically signed by: Vincent Pandya MD 12/21/2024 12:02 PM EDT RP Medications Medications Current Medications Acetaminophen (Acetaminophen 325 Mg Tablet) 650 mg PO Q6H PRN PRN Reason: Headache/Pain, Scale 1-10 Al Hydroxide/Mg Hydroxide (Magnesium Hydrox/Alum Hydrox 30 Ml Oral.Susp) 30 ml PO Q6H PRN PRN Reason: Heartburn/Nausea Alprazolam (Alprazolam 0.25 Mg Tablet) 0.125 mg PO TID PRN PRN Reason: anxietyrestlessness Amlodipine Besylate (Amlodipine Besylate 10 Mg Tablet) 10 mg PO BEDTIME [facility]; Protocol Last Admin: 01/05/25 20:31 Dose: 10 mg Aspirin (Aspirin Enteric Coated 81 Mg Tablet.) 81 mg PO BEDTIME OTIL[facility] Last Admin: 01/05/25 20:31 Dose: 81 mg Atorvastatin Calcium (Atorvastatin Calcium 40 Mg Tablet) 40 mg PO BEDTIME [facility] Last Admin: 01/05/25 20:32 Dose: 40 mg Clonidine HCl (Clonidine Hcl 0.1 Mg Tablet) 0.1 mg PO BID PRN; Protocol PRN Reason: severe anxiety Last Admin: 12/18/24 20:33 Dose: 0.1 mg Divalproex Sodium (Divalproex Sodium Sprinkles 125 Mg ) 500 mg PO BID OTILIA Last Admin: 01/06/25 09:13 Dose: 500 mg Emtricitabine/Tenofovir Alafenamide (Emtricitabine/Tenofov Alafenam Tablet) 1 tab PO DAILY [facility] Last Admin: 01/06/25 09:13 Dose: 1 tab Finasteride (Finasteride 5 Mg Tablet) 5 mg PO DAILY [facility] Last Admin: 01/06/25 09:12 Dose: 5 mg Hydralazine HCl (Hydralazine Hcl 25 Mg Tablet) 25 mg PO TID [facility]ILIA; Protocol Last Admin: 01/06/25 09:14 Dose: 25 mg Lactase (Lactase Tablet) 1 tab PO Q4H PRN PRN Reason: with dairy Last Admin: 12/26/24 15:00 Dose: 1 tab Losartan Potassium (Losartan Potassium 50 Mg Tablet) 100 mg PO DAILY [facility]; Protocol Last Admin: 01/06/25 09:12 Dose: 100 mg Magnesium Hydroxide (Milk Of Magnesia 30 Ml Oral.Susp) 30 ml PO DAILY PRN PRN Reason: Constipation Last Admin: 12/19/24 21:38 Dose: 30 ml Melatonin (Melatonin 3 Mg Tablet) 6 mg PO BEDTIME OT[facility]IA Last Admin: 01/05/25 20:32 Dose: 6 mg Memantine (Memantine Hcl 5 Mg Tablet) 5 mg PO DAILY [facility] Last Admin: 01/06/25 09:15 Dose: 5 mg Olanzapine (Olanzapine 2.5 Mg Tablet) 2.5 mg PO Q4H PRN PRN Reason: anxiety/restlessness Last Admin: 01/03/25 15:14 Dose: 2.5 mg Olanzapine (Olanzapine 5 Mg Tablet) 5 mg PO BEDTIME [facility] Last Admin: 01/05/25 20:32 Dose: 5 mg Olanzapine (Olanzapine 2.5 Mg Tablet) 2.5 mg PO DAILY [facility] Last Admin: 01/06/25 09:15 Dose: 2.5 mg Omeprazole (Omeprazole 20 Mg Capsule.Dr) 20 mg PO BEDTIME [facility] Last Admin: 01/05/25 20:32 Dose: 20 mg Tamsulosin HCl (Tamsulosin Hcl 0.4 Mg Capsule) 0.8 mg PO BEDTIME [facility] Last Admin: 01/05/25 20:32 Dose: 0.8 mg Tolterodine Tartrate (Tolterodine Tartrate La 4 Mg Cap.Er.24h) 4 mg PO DAILY [facility] Last Admin: 01/06/25 09:13 Dose: 4 mg Valacyclovir HCl (Valacyclovir Hcl 500 Mg Tablet) 500 mg PO DAILY [facility] Last Admin: 01/06/25 09:15 Dose: 500 mg Allergies Allergies Allergy/AdvReac Type Severity Reaction Status Date / Time No Known Allergies Allergy Verified 12/16/24 19:54 Assessment & Plan Assessment & Plan (1) Major 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, with agitation: Status: Acute Code(s): F02.811 - Dementia in other diseases classified elsewhere, unspecified severity, with agitation (2) Encephalopathy: Qualifiers: Encephalopathy type: unspecified encephalopathy Qualified Code(s): G 93.40 - Encephalopathy, unspecified Status: Acute Code(s): G93.40 - Encephalopathy, unspecified Assessment and Plan: 74 years old man with acute change in mental status with psychiatric symptoms of paranoia and agitation and confusion with forgetfulness. This seems to be a relatively recent and according to him he was fine couple of months ago. This would suggest a rapidly progressive process. Differential diagnosis would include atypical encephalitis from an atypical infection, or an inflammatory process including autoimmune condition. It would also include possibility of Crutzfeld Lobito disease. His MRI of brain did reveal subtle abnormalities suggesting any of these possibilities. I recommend sending serum test for Lyme, syphilis, HIV, and blood test for sed rate. If serum or blood tests do not provide any lead, a lumbar puncture is needed to do testing on CSF. EEG is also recommended, which in some cases can also help. (3) Manic behavior: Status: Acute Code(s): F30.10 - Manic episode without psychotic symptoms, unspecified (4) Hypertension: Qualifiers: Hypertension type: primary hypertension Qualified Code(s): I10 - Essential (primary) hypertension Status: Acute Code(s): I10 - Essential (primary) hypertension (5) OCD (obsessive compulsive disorder): Status: Acute Code(s): F42.9 - Obsessive-compulsive disorder, unspecified Plan 74M PMH mood disorder, HTN, BPH, GERD, HSV, mood disorder presented on section 12 with evelyn/paranoia, found to be hypoxic and hypertensive initially admitted to hospital. Now admitted to [facility] for further care and stabilization for paranoia and agitation. Has been seen by neurology, Results of LP pending. Mood disorder/Paranoia Treatment per psych team Hypertension/HLD Continues on Losartan 100 mg daily, Amlodipine 10 mgs and Hydralazine 25 mgs TID Will change amlodipine to HS dosing. Low Salt diet. Patient asking for salt for his food. Avoid AV reji blockers including propranolol Continue Atorvastatin-LIpid panel WNL. Encephalopathy with abnormal MRI Follow recommendations from Neurology EEG testing negative for CJD or epileptic tendencies. ESR normal HIV, RPR, Lyme testing all negative Results of LP pending History of Bradycardia with normal MS interval Patient not on any AV reji blockers TSH WNL Will need Holter monitor outpatient and cardiology follow up BPH Continue finasteride and tamsulosin On Detrol GERD Omeprazole Avoid food triggers HSV Valacyclovir On Descovy for prep Thank you for allowing me to participate in the care of this patient. Will follow as needed. Please reconsult of any acute concerns or issues arise Assessment and Plan Patient with ongoing obsessional thoughts intense pressured speech racing thoughts. Mirtazapine 7.5 mg at bedtime see if help with insomnia and obsessional anxiety continue olanzapine 5 mg at bedtime with a 2.5 mg prn targeting agitation obsessional thoughts anxiety. Still do not have results from lumbar puncture which may suggest other causes besides vascular brain changes the patient's symptoms 12/25/24: Increase Depakote to 375 mg BID. 12/26: aware his mood is labile, agrees to increase VPA dosing to 500 BID. hyperverbal, anxious. 12/27/2024 Patient continues hyperverbal limited reasoning and executive function hard for him to stay on topic. Check Depakote level Creutzfeldt-Ose[place] pending for tomorrow then should have results regarding lumbar puncture. Increase a.m. olanzapine to 5 mg monitor gait 12/28/2024 CJD negative some improvement noted with Depakote and olanzapine less pressured improved anxiety somewhat better able to engage in linear conversation eating and drinking okay flesh pressure remains intermittently elevated will again ask hospitalist service to look at this has been difficult to control Further labs from lumbar puncture pending d/c planning 12/30/2024: No changes in current management plan and note some test results still pending from lumbar puncture 12/31: no changes Reason for continued inpatient stay Substantial Risk for rapid decompensation 01/01/25 Pt with some inc ability to think reason case reviewed with neurology no exact dx vascular plus degenerative? consider namenda 01/02/2025 Patient is still pending some labs neurology does not feel this is infectious or paraneoplastic. Looking at discharge to protected environment Case discussed with brother extensively reviewed option of Namenda mention consideration of the [place] 01/03/2025 Case reviewed with neurology and discussed still unclear diagnosis and patient's mental status remains severely impaired. Discussion held regarding possibility of transferred to [facility] neurologist felt we should wait and see if amyloid studies come back positive and healthcare proxy Sai did have a discussion with Dr. López regarding above possibility. Consideration could be given to attempt at PET scan amyloid PET scan at some point neurologist felt only AYAD Poloyd blood work was positive. Discussed option of Namenda will start tomorrow monitor for any adverse effects hopefully may help with cognition and behavioral issues 01/04/2025 Start Namenda 5 mg daily referral process started regarding [facility] case reviewed with neurology and with healthcare proxy. Continue Depakote olanz patient has apine seems somewhat helpful in decreasing agitation irritability and anxiety. Still pending results from amyloid Regarding hypertension in better control also being followed by hospitalist service 01/05/25 Patient's case reviewed with treatment team reviewed with healthcare proxy. Patient has been referred to [facility] they only have emergency meds for surgery extensive material sent case distress discussed with transfer team Deborah oneal are still pending results from amyloid and tau testing patient has been more lethargic remains on olanzapine b.i.d. and Depakote 500 b.i.d.. Will lower morning olanzapine 01/06: no change today Patient educated on: diagnosis Informed Consent: further education needed Reason for continued inpatient stay Substantial Risk for: inability to function and rapid decompensation Time Spent With Patient Time: Total time managing care of this patient today __15__ minutes.
[2025-01-06 14:26] VITALS: BP 131/70; PULSE 88
[2025-01-06 20:00] VITALS: BP 132/74; PULSE 87; RESP 18; TEMP 36.9; O2SAT 92
[2025-01-06] MEDS: Aspirin Enteric Coated 81 MG TABLET.DR PO (21:07)
[2025-01-07 08:51] VITALS: BP 118/62; PULSE 76; RESP 16; TEMP 36.1; O2SAT 95
[2025-01-07] MEDS: Emtricitabine/Tenofov Alafenam TABLET 1 TAB PO (08:53)
[2025-01-07] MEDS: Divalproex Sodium Sprinkles 125 MG CAP.DR.SPR 500 MG PO ×2 (08:54→20:12)
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
[2025-01-07 15:05] VITALS: BP 147/70; PULSE 83
[2025-01-07 15:06] VITALS: BP 147/70
[2025-01-07 15:32] VITALS: BMI 21.0
[2025-01-07 19:56] VITALS: BP 113/51; PULSE 108; RESP 17; TEMP 35.7; O2SAT 92
[2025-01-07 20:14] VITALS: BP 133/76
[2025-01-07 20:15] VITALS: BP 133/76
[2025-01-07] MEDS: Aspirin Enteric Coated 81 MG TABLET.DR PO (20:15)
[2025-01-08 08:20] VITALS: BP 144/77; PULSE 74; RESP 16; TEMP 36.3; O2SAT 94
[2025-01-08] MEDS: Divalproex Sodium Sprinkles 125 MG CAP.DR.SPR 500 MG PO ×2 (09:05→20:26)
[2025-01-08] MEDS: Emtricitabine/Tenofov Alafenam TABLET 1 TAB PO (09:07)
[2025-01-08 14:58] VITALS: BP 135/79; PULSE 81
--- NOTE | 2025-01-08 14:58 | P.PNPSI_ITS ---
Subjective Subjective Date of Service: 01/08/25 Reason For Visit: confusion agitation Subjective Notes: Conditional Voluntary Healthcare Proxy: Yes Interim History: Patient has been anxious and pacing on the unit some periods of lethargy. Remains grossly confused tangential hard times staying on track in a conversation. [facility] again stated that they did not have a bed for the patient that they were only taking acute surgical cases Medication Compliance: Yes Review of Systems Monitor blood pressure Mental Status Exam Mental Status Exam Narrative: Patient wearing hospital garb been pink bathroom. He is anxious in appearance ambulating without difficulty. Poorly informational difficulty having a logical linear conversation. Talking about his brother times mentioning going other times unable to linear manner explain what he wants to get across can follow directions. Easily distracted poor short-term memory no gross suicidal or homicidal impulsivity or thoughts expressed marked lack of insight into what is going on Diagnostics Vital Signs (24Hr): Vital Signs - 24 hr 01/07/25 15:05 01/07/25 15:06 01/07/25 19:56 Temperature 96.3 F L Pulse Rate 83 108 H Respiratory Rate 17 Blood Pressure 147/70 H 147/70 H 113/51 L Pulse Oximetry 92 Oxygen Delivery Method Room Air 01/07/25 20:14 01/07/25 20:15 01/08/25 08:20 Temperature 97.3 F Pulse Rate 74 Respiratory Rate 16 Blood Pressure 133/76 133/76 144/77 H Pulse Oximetry 94 Oxygen Delivery Method Room Air BMI result Body Mass Index 21.0 Labs 01/01/25 11:36 01/03/25 07:59 Labs: Laboratory Results - last 48 hr 12/19/24 11:15 CSF Myelin Basic Protein 5.6 H Imaging Radiology Impressions: ITS Impressions Brain MRI 12/15/24 09:35 IMPRESSION: Acute nonhemorrhagic ischemia involving the right precentral gyrus and left middle frontal gyrus concerning for embolic etiology. Extensive white matter disease likely related to small vessel occlusive disease. 5 mm nodular lesion, frontal horn right lateral ventricle. Malignancy cannot be excluded. Recommend IV contrast enhanced MRI brain. Global cerebral atrophy. Electronically signed by: Vincent Pandya MD 12/15/2024 10:21 AM EDT Lumbar Puncture Fluoroscopy 12/19/24 10:45 IMPRESSION: Successful fluoroscopic guided L3-4 interlaminar lumbar puncture. Electronically signed by: Kevin Barahona MD 12/19/2024 12:36 PM EDT RP Head/Neck CTA 12/21/24 10:29 IMPRESSION: No main cerebral artery occlusion or embolus. Irregular calcified plaque at the proximal right ICA at representing less than 50% stenosis. No dissection. Probable 2 mm aneurysm, right A2 segment. This critical test result is communicated to: Electronically signed by: Vincent Pandya MD 12/21/2024 12:02 PM EDT RP Medications Medications Current Medications Acetaminophen (Acetaminophen 325 Mg Tablet) 650 mg PO Q6H PRN PRN Reason: Headache/Pain, Scale 1-10 Al Hydroxide/Mg Hydroxide (Magnesium Hydrox/Alum Hydrox 30 Ml Oral.Susp) 30 ml PO Q6H PRN PRN Reason: Heartburn/Nausea Alprazolam (Alprazolam 0.25 Mg Tablet) 0.125 mg PO TID PRN PRN Reason: anxietyrestlessness Amlodipine Besylate (Amlodipine Besylate 10 Mg Tablet) 10 mg PO BEDTIME OTILIA; Protocol Last Admin: 01/07/25 20:15 Dose: 10 mg Aspirin (Aspirin Enteric Coated 81 Mg Tablet.) 81 mg PO BEDTIME OTILIA Last Admin: 01/07/25 20:15 Dose: 81 mg Atorvastatin Calcium (Atorvastatin Calcium 40 Mg Tablet) 40 mg PO BEDTIME OTILIA Last Admin: 01/07/25 20:15 Dose: 40 mg Clonidine HCl (Clonidine Hcl 0.1 Mg Tablet) 0.1 mg PO BID PRN; Protocol PRN Reason: severe anxiety Last Admin: 12/18/24 20:33 Dose: 0.1 mg Divalproex Sodium (Divalproex Sodium Sprinkles 125 Mg Cap.) 500 mg PO BID OTILIA Last Admin: 01/08/25 09:05 Dose: 500 mg Emtricitabine/Tenofovir Alafenamide (Emtricitabine/Tenofov Alafenam Tablet) 1 tab PO DAILY OTILIA Last Admin: 01/08/25 09:07 Dose: 1 tab Finasteride (Finasteride 5 Mg Tablet) 5 mg PO DAILY OTILIA Last Admin: 01/08/25 09:05 Dose: 5 mg Hydralazine HCl (Hydralazine Hcl 25 Mg Tablet) 25 mg PO TID OTILIA; Protocol Last Admin: 01/08/25 09:07 Dose: 25 mg Lactase (Lactase Tablet) 1 tab PO Q4H PRN PRN Reason: with dairy Last Admin: 12/26/24 15:00 Dose: 1 tab Losartan Potassium (Losartan Potassium 50 Mg Tablet) 100 mg PO DAILY [facility]; Protocol Last Admin: 01/08/25 09:06 Dose: 100 mg Magnesium Hydroxide (Milk Of Magnesia 30 Ml Oral.Susp) 30 ml PO DAILY PRN PRN Reason: Constipation Last Admin: 12/19/24 21:38 Dose: 30 ml Melatonin (Melatonin 3 Mg Tablet) 6 mg PO BEDTIME OTILIA Last Admin: 01/07/25 20:13 Dose: 6 mg Memantine (Memantine Hcl 5 Mg Tablet) 5 mg PO BID OTILIA Olanzapine (Olanzapine 2.5 Mg Tablet) 2.5 mg PO Q4H PRN PRN Reason: anxiety/restlessness Last Admin: 01/03/25 15:14 Dose: 2.5 mg Olanzapine (Olanzapine 5 Mg Tablet) 5 mg PO BEDTIME OTILIA Last Admin: 01/07/25 20:15 Dose: 5 mg Olanzapine (Olanzapine 2.5 Mg Tablet) 2.5 mg PO DAILY OTILIA Last Admin: 01/08/25 09:08 Dose: 2.5 mg Omeprazole (Omeprazole 20 Mg Capsule.Dr) 20 mg PO BEDTIME OTILIA Last Admin: 01/07/25 20:15 Dose: 20 mg Tamsulosin HCl (Tamsulosin Hcl 0.4 Mg Capsule) 0.8 mg PO BEDTIME OTILIA Last Admin: 01/07/25 20:14 Dose: 0.8 mg Tolterodine Tartrate (Tolterodine Tartrate La 4 Mg Cap.Er.24h) 4 mg PO DAILY OTILIA Last Admin: 01/08/25 09:07 Dose: 4 mg Valacyclovir HCl (Valacyclovir Hcl 500 Mg Tablet) 500 mg PO DAILY [facility] Last Admin: 01/08/25 09:08 Dose: 500 mg Allergies Allergies Allergy/AdvReac Type Severity Reaction Status Date / Time No Known Allergies Allergy Verified 12/16/24 19:54 Assessment & Plan Assessment & Plan (1) Major 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, with agitation: Status: Acute Code(s): F02.811 - Dementia in other diseases classified elsewhere, unspecified severity, with agitation (2) Encephalopathy: Qualifiers: Encephalopathy type: unspecified encephalopathy Qualified Code(s): G 93.40 - Encephalopathy, unspecified Status: Acute Code(s): G93.40 - Encephalopathy, unspecified Assessment and Plan: 74 years old man with acute change in mental status with psychiatric symptoms of paranoia and agitation and confusion with forgetfulness. This seems to be a relatively recent and according to him he was fine couple of months ago. This would suggest a rapidly progressive process. Differential diagnosis would include atypical encephalitis from an atypical infection, or an inflammatory process including autoimmune condition. It would also include possibility of Crutzfeld Lobito disease. His MRI of brain did reveal subtle abnormalities suggesting any of these possibilities. I recommend sending serum test for Lyme, syphilis, HIV, and blood test for sed rate. If serum or blood tests do not provide any lead, a lumbar puncture is needed to do testing on CSF. EEG is also recommended, which in some cases can also help. (3) Manic behavior: Status: Acute Code(s): F30.10 - Manic episode without psychotic symptoms, unspecified (4) Hypertension: Qualifiers: Hypertension type: primary hypertension Qualified Code(s): I10 - Essential (primary) hypertension Status: Acute Code(s): I10 - Essential (primary) hypertension (5) OCD (obsessive compulsive disorder): Status: Acute Code(s): F42.9 - Obsessive-compulsive disorder, unspecified Plan 74M PMH mood disorder, HTN, BPH, GERD, HSV, mood disorder presented on section 12 with evelyn/paranoia, found to be hypoxic and hypertensive initially admitted to hospital. Now admitted to [facility] for further care and stabilization for paranoia and agitation. Has been seen by neurology, Results of LP pending. Mood disorder/Paranoia Treatment per psych team Hypertension/HLD Continues on Losartan 100 mg daily, Amlodipine 10 mgs and Hydralazine 25 mgs TID Will change amlodipine to HS dosing. Low Salt diet. Patient asking for salt for his food. Avoid AV reji blockers including propranolol Continue Atorvastatin-LIpid panel WNL. Encephalopathy with abnormal MRI Follow recommendations from Neurology EEG testing negative for CJD or epileptic tendencies. ESR normal HIV, RPR, Lyme testing all negative Results of LP pending History of Bradycardia with normal FL interval Patient not on any AV reji blockers TSH WNL Will need Holter monitor outpatient and cardiology follow up BPH Continue finasteride and tamsulosin On Detrol GERD Omeprazole Avoid food triggers HSV Valacyclovir On Descovy for prep Thank you for allowing me to participate in the care of this patient. Will follow as needed. Please reconsult of any acute concerns or issues arise Assessment and Plan Patient with ongoing obsessional thoughts intense pressured speech racing thoughts. Mirtazapine 7.5 mg at bedtime see if help with insomnia and obsessional anxiety continue olanzapine 5 mg at bedtime with a 2.5 mg prn targeting agitation obsessional thoughts anxiety. Still do not have results from lumbar puncture which may suggest other causes besides vascular brain changes the patient's symptoms 12/25/24: Increase Depakote to 375 mg BID. 12/26: aware his mood is labile, agrees to increase VPA dosing to 500 BID. hyperverbal, anxious. 12/27/2024 Patient continues hyperverbal limited reasoning and executive function hard for him to stay on topic. Check Depakote level [place]utzfeldt-[place]se[place] pending for tomorrow then should have results regarding lumbar puncture. Increase a.m. olanzapine to 5 mg monitor gait 12/28/2024 CJD negative some improvement noted with Depakote and olanzapine less pressured improved anxiety somewhat better able to engage in linear conversation eating and drinking okay flesh pressure remains intermittently elevated will again ask hospitalist service to look at this has been difficult to control Further labs from lumbar puncture pending d/c planning 12/30/2024: No changes in current management plan and note some test results still pending from lumbar puncture 12/31: no changes Reason for continued inpatient stay Substantial Risk for rapid decompensation 01/01/25 Pt with some inc ability to think reason case reviewed with neurology no exact dx vascular plus degenerative? consider namenda 01/02/2025 Patient is still pending some labs neurology does not feel this is infectious or paraneoplastic. Looking at discharge to protected environment Case discussed with brother extensively reviewed option of Namenda mention consideration of the [place] 01/03/2025 Case reviewed with neurology and discussed still unclear diagnosis and patient's mental status remains severely impaired. Discussion held regarding possibility of transferred to [facility] neurologist felt we should wait and see if amyloid studies come back positive and healthcare proxy Sai did have a discussion with Dr. López regarding above possibility. Consideration could be given to attempt at PET scan amyloid PET scan at some point neurologist felt only FM Jonel blood work was positive. Discussed option of Namenda will start tomorrow monitor for any adverse effects hopefully may help with cognition and behavioral issues 01/04/2025 Start Namenda 5 mg daily referral process started regarding [facility] case reviewed with neurology and with healthcare proxy. Continue Depakote olanz patient has apine seems somewhat helpful in decreasing agitation irritability and anxiety. Still pending results from amyloid Regarding hypertension in better control also being followed by hospitalist service 01/05/25 Patient's case reviewed with treatment team reviewed with healthcare proxy. Patient has been referred to [facility] they only have emergency meds for surgery extensive material sent case distress discussed with transfer team Deborah oneal are still pending results from amyloid and tau testing patient has been more lethargic remains on olanzapine b.i.d. and Depakote 500 b.i.d.. Will lower morning olanzapine 01/08/[address] [facility] again denies transfer stating they will only take acute surgical patient's to neurology or acute stroke. Case reviewed with Dr. López regularly from Neurology. Seems to be getting more confused increase Namenda to 5 b.i.d. lower Depakote 250 b.i.d. as tolerated pending Alzheimer screening results Guardian/Caregiver educated on: diagnosis and medical condition Informed Consent: does not understand Reason for continued inpatient stay Substantial Risk for: inability to function, rapid decompensation and med/psych decompensation Time Spent With Patient Time: Total time managing care of this patient today ____ minutes.
[2025-01-08 20:00] VITALS: BP 137/77; PULSE 81; RESP 14; TEMP 36.3; O2SAT 98
[2025-01-08 20:30] VITALS: BP 137/77
[2025-01-08 20:32] VITALS: BP 137/77
[2025-01-08] MEDS: Aspirin Enteric Coated 81 MG TABLET.DR PO (20:32)
[2025-01-09 04:28] LABS: ABETA 42/40 Ratio 0.178 (> OR = 0.170); Alzeheimer's Interpretation Low Likelihood; Alzeimer's Disease Score 0.2728; Tau protein phosphorylated 217 0.40 pg/mL (< OR = 0.15)
[2025-01-09 08:34] VITALS: BP 167/76; PULSE 74; RESP 14; TEMP 35.7; O2SAT 90
[2025-01-09] MEDS: Emtricitabine/Tenofov Alafenam TABLET 1 TAB PO (08:37)
[2025-01-09] MEDS: Divalproex Sodium Sprinkles 125 MG CAP.DR.SPR 500 MG PO (08:38)
--- NOTE | 2025-01-09 14:09 | P.PNPSI_ITS ---
Subjective Subjective Date of Service: 01/09/25 Reason For Visit: confusion agitation Interim History: Pt active in milieu less intrusive. Not accepted for transfer to [facility]. difficulty with focus linear conv limits interaction Mental Status Exam Mental Status Exam Narrative: Patient wearing hospital garb been pink bathroom. He is anxious in appearance ambulating without difficulty. Poorly informational difficulty having a logical linear conversation. 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 brother Easily distracted poor short-term memory no gross suicidal or homicidal impulsivity or thoughts expressed marked lack of insight into what is going on Diagnostics Vital Signs (24Hr): Vital Signs - 24 hr 01/08/25 14:58 01/08/25 20:00 01/08/25 20:30 Temperature 97.3 F Pulse Rate 81 81 Respiratory Rate 14 Blood Pressure 135/79 137/77 137/77 Pulse Oximetry 98 Oxygen Delivery Method Room Air 01/08/25 20:32 01/09/25 08:34 Temperature 96.3 F L Pulse Rate 74 Respiratory Rate 14 Blood Pressure 137/77 167/76 H Pulse Oximetry 90 L Oxygen Delivery Method Room Air BMI result Body Mass Index 21.0 Labs 01/01/25 11:36 01/03/25 07:59 Labs: Laboratory Results - last 48 hr 01/01/25 11:36 Amyloid Score (APS2) 0.2728 Abeta42/40 Ratio 0.178 Amyloidosis Interpret Low Likelihood Amyloid Beta 42 Peptide 56 Amyloid Beta 40 Peptide 315 Phosphorylated Tau 217 0.40 H Imaging Radiology Impressions: ITS Impressions Brain MRI 12/15/24 09:35 IMPRESSION: Acute nonhemorrhagic ischemia involving the right precentral gyrus and left middle frontal gyrus concerning for embolic etiology. Extensive white matter disease likely related to small vessel occlusive disease. 5 mm nodular lesion, frontal horn right lateral ventricle. Malignancy cannot be excluded. Recommend IV contrast enhanced MRI brain. Global cerebral atrophy. Electronically signed by: Vincent Pandya MD 12/15/2024 10:21 AM EDT RP Lumbar Puncture Fluoroscopy 12/19/24 10:45 IMPRESSION: Successful fluoroscopic guided L3-4 interlaminar lumbar puncture. Electronically signed by: Kevin Barahona MD 12/19/2024 12:36 PM EDT RP Head/Neck CTA 08/28/25 10:29 IMPRESSION: No main cerebral artery occlusion or embolus. Irregular calcified plaque at the proximal right ICA at representing less than 50% stenosis. No dissection. Probable 2 mm aneurysm, right A2 segment. This critical test result is communicated to: Electronically signed by: Vincent Pandya MD 12/21/2024 12:02 PM EDT RP Medications Medications Current Medications Acetaminophen (Acetaminophen 325 Mg Tablet) 650 mg PO Q6H PRN PRN Reason: Headache/Pain, Scale 1-10 Al Hydroxide/Mg Hydroxide (Magnesium Hydrox/Alum Hydrox 30 Ml Oral.Susp) 30 ml PO Q6H PRN PRN Reason: Heartburn/Nausea Alprazolam (Alprazolam 0.25 Mg Tablet) 0.125 mg PO TID PRN PRN Reason: anxietyrestlessness Last Admin: 01/08/25 17:59 Dose: 0.125 mg Amlodipine Besylate (Amlodipine Besylate 10 Mg Tablet) 10 mg PO BEDTIME OTILIA; Protocol Last Admin: 01/08/25 20:32 Dose: 10 mg Aspirin (Aspirin Enteric Coated 81 Mg Tablet.) 81 mg PO BEDTIME OTILIA Last Admin: 01/08/25 20:32 Dose: 81 mg Atorvastatin Calcium (Atorvastatin Calcium 40 Mg Tablet) 40 mg PO BEDTIME OTILIA Last Admin: 01/08/25 20:32 Dose: 40 mg Clonidine HCl (Clonidine Hcl 0.1 Mg Tablet) 0.1 mg PO BID PRN; Protocol PRN Reason: severe anxiety Last Admin: 12/18/24 20:33 Dose: 0.1 mg Divalproex Sodium (Divalproex Sodium Sprinkles 125 Mg ) 250 mg PO BID OTILIA Finasteride (Finasteride 5 Mg Tablet) 5 mg PO DAILY OTILIA Last Admin: 01/09/25 08:38 Dose: 5 mg Hydralazine HCl (Hydralazine Hcl 25 Mg Tablet) 25 mg PO TID OTILIA; Protocol Last Admin: 01/09/25 08:37 Dose: 25 mg Lactase (Lactase Tablet) 1 tab PO Q4H PRN PRN Reason: with dairy Last Admin: 12/26/24 15:00 Dose: 1 tab Losartan Potassium (Losartan Potassium 50 Mg Tablet) 100 mg PO DAILY OTILIA; Protocol Last Admin: 01/09/25 08:37 Dose: 100 mg Magnesium Hydroxide (Milk Of Magnesia 30 Ml Oral.Susp) 30 ml PO DAILY PRN PRN Reason: Constipation Last Admin: 12/19/24 21:38 Dose: 30 ml Melatonin (Melatonin 3 Mg Tablet) 6 mg PO BEDTIME OTILIA Last Admin: 01/08/25 20:26 Dose: 6 mg Memantine (Memantine Hcl 5 Mg Tablet) 5 mg PO BID OTILIA Last Admin: 01/09/25 08:38 Dose: 5 mg Olanzapine (Olanzapine 2.5 Mg Tablet) 2.5 mg PO Q4H PRN PRN Reason: anxiety/restlessness Last Admin: 01/03/25 15:14 Dose: 2.5 mg Olanzapine (Olanzapine 5 Mg Tablet) 5 mg PO BEDTIME OTILIA Last Admin: 01/08/25 20:32 Dose: 5 mg Olanzapine (Olanzapine 2.5 Mg Tablet) 2.5 mg PO DAILY [facility] Last Admin: 01/09/25 08:38 Dose: 2.5 mg Omeprazole (Omeprazole 20 Mg Capsule.Dr) 20 mg PO BEDTIME [facility] Last Admin: 01/08/25 20:32 Dose: 20 mg Tamsulosin HCl (Tamsulosin Hcl 0.4 Mg Capsule) 0.8 mg PO BEDTIME OTILIA Last Admin: 01/08/25 20:26 Dose: 0.8 mg Tolterodine Tartrate (Tolterodine Tartrate La 4 Mg Cap.Er.24h) 4 mg PO DAILY [facility] Last Admin: 01/09/25 08:38 Dose: 4 mg Valacyclovir HCl (Valacyclovir Hcl 500 Mg Tablet) 500 mg PO DAILY [facility] Last Admin: 01/09/25 08:38 Dose: 500 mg Allergies Allergies Allergy/AdvReac Type Severity Reaction Status Date / Time No Known Allergies Allergy Verified 12/16/24 19:54 Assessment & Plan Assessment & Plan (1) Major 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, with agitation: Status: Acute Code(s): F02.811 - Dementia in other diseases classified elsewhere, unspecified severity, with agitation (2) Encephalopathy: Qualifiers: Encephalopathy type: unspecified encephalopathy Qualified Code(s): G 93.40 - Encephalopathy, unspecified Status: Acute Code(s): G93.40 - Encephalopathy, unspecified Assessment and Plan: 74 years old man with acute change in mental status with psychiatric symptoms of paranoia and agitation and confusion with forgetfulness. This seems to be a relatively recent and according to him he was fine couple of months ago. This would suggest a rapidly progressive process. Differential diagnosis would include atypical encephalitis from an atypical infection, or an inflammatory process including autoimmune condition. It would also include possibility of Crutzfeld Lobito disease. His MRI of brain did reveal subtle abnormalities suggesting any of these possibilities. I recommend sending serum test for Lyme, syphilis, HIV, and blood test for sed rate. If serum or blood tests do not provide any lead, a lumbar puncture is needed to do testing on CSF. EEG is also recommended, which in some cases can also help. (3) Manic behavior: Status: Acute Code(s): F30.10 - Manic episode without psychotic symptoms, unspecified (4) Hypertension: Qualifiers: Hypertension type: primary hypertension Qualified Code(s): I10 - Essential (primary) hypertension Status: Acute Code(s): I10 - Essential (primary) hypertension (5) OCD (obsessive compulsive disorder): Status: Acute Code(s): F42.9 - Obsessive-compulsive disorder, unspecified Plan 74M PMH mood disorder, HTN, BPH, GERD, HSV, mood disorder presented on section 12 with evelyn/paranoia, found to be hypoxic and hypertensive initially admitted to hospital. Now admitted to [facility] for further care and stabilization for paranoia and agitation. Has been seen by neurology, Results of LP pending. Mood disorder/Paranoia Treatment per psych team Hypertension/HLD Continues on Losartan 100 mg daily, Amlodipine 10 mgs and Hydralazine 25 mgs TID Will change amlodipine to HS dosing. Low Salt diet. Patient asking for salt for his food. Avoid AV reji blockers including propranolol Continue Atorvastatin-LIpid panel WNL. Encephalopathy with abnormal MRI Follow recommendations from Neurology EEG testing negative for CJD or epileptic tendencies. ESR normal HIV, RPR, Lyme testing all negative Results of LP pending History of Bradycardia with normal NC interval Patient not on any AV reji blockers TSH WNL Will need Holter monitor outpatient and cardiology follow up BPH Continue finasteride and tamsulosin On Detrol GERD Omeprazole Avoid food triggers HSV Valacyclovir On Descovy for prep Thank you for allowing me to participate in the care of this patient. Will follow as needed. Please reconsult of any acute concerns or issues arise Assessment and Plan Patient with ongoing obsessional thoughts intense pressured speech racing thoughts. Mirtazapine 7.5 mg at bedtime see if help with insomnia and obsessional anxiety continue olanzapine 5 mg at bedtime with a 2.5 mg prn targeting agitation obsessional thoughts anxiety. Still do not have results from lumbar puncture which may suggest other causes besides vascular brain changes the patient's symptoms 12/25/24: Increase Depakote to 375 mg BID. 12/26: aware his mood is labile, agrees to increase VPA dosing to 500 BID. hyperverbal, anxious. 12/27/2024 Patient continues hyperverbal limited reasoning and executive function hard for him to stay on topic. Check Depakote level [place]utzfeldt-[place]se[place] pending for tomorrow then should have results regarding lumbar puncture. Increase a.m. olanzapine to 5 mg monitor gait 12/28/2024 CJD negative some improvement noted with Depakote and olanzapine less pressured improved anxiety somewhat better able to engage in linear conversation eating and drinking okay flesh pressure remains intermittently elevated will again ask hospitalist service to look at this has been difficult to control Further labs from lumbar puncture pending d/c planning 12/30/2024: No changes in current management plan and note some test results still pending from lumbar puncture 12/31: no changes Reason for continued inpatient stay Substantial Risk for rapid decompensation 01/01/25 Pt with some inc ability to think reason case reviewed with neurology no exact dx vascular plus degenerative? consider namenda 01/02/2025 Patient is still pending some labs neurology does not feel this is infectious or paraneoplastic. Looking at discharge to protected environment Case discussed with brother extensively reviewed option of Namenda mention consideration of the [facility] 01/03/2025 Case reviewed with neurology and discussed still unclear diagnosis and patient's mental status remains severely impaired. Discussion held regarding possibility of transferred to [facility] neurologist felt we should wait and see if amyloid studies come back positive and healthcare proxy Sai did have a discussion with Dr. López regarding above possibility. Consideration could be given to attempt at PET scan amyloid PET scan at some point neurologist felt only AYAD Remy blood work was positive. Discussed option of Namenda will start tomorrow monitor for any adverse effects hopefully may help with cognition and behavioral issues 01/04/2025 Start Namenda 5 mg daily referral process started regarding [facility] case reviewed with neurology and with healthcare proxy. Continue Depakote olanz patient has apine seems somewhat helpful in decreasing agitation irritability and anxiety. Still pending results from amyloid Regarding hypertension in better control also being followed by hospitalist service 01/05/25 Patient's case reviewed with treatment team reviewed with healthcare proxy. Patient has been referred to [facility] they only have emergency meds for surgery extensive material sent case distress discussed with transfer team Deborah oneal are still pending results from amyloid and tau testing patient has been more lethargic remains on olanzapine b.i.d. and Depakote 500 b.i.d.. Will lower morning olanzapine 01/08/2025 [facility] again denies transfer stating they will only take acute surgical patient's to neurology or acute stroke. Case reviewed with Dr. López regularly from Neurology. Seems to be getting more confused increase Namenda to 5 b.i.d. lower Depakote 250 b.i.d. as tolerated pending Alzheimer screening results 01/09/25 Referrals to [facility] but refusing transfer. pt neg blood work for tau and amyloid. Pt on dec depakote in case worsening confusion. Pt unabe to participate in linear planning except for shot periods. Episodes of severe anxiety. Reason for continued inpatient stay Substantial Risk for: inability to function, rapid decompensation and med/psych decompensation Time Spent With Patient Time: Total time managing care of this patient today ____ minutes.
[2025-01-09 14:18] LABS: Mercury, serum/plasma None Detected mcg/L
[2025-01-09 15:53] VITALS: BP 136/78; PULSE 70
[2025-01-09 20:00] VITALS: BP 160/82; PULSE 83; RESP 18; TEMP 36.6; O2SAT 92
[2025-01-09] MEDS: Aspirin Enteric Coated 81 MG TABLET.DR PO (21:08)
[2025-01-09] MEDS: Divalproex Sodium Sprinkles 125 MG CAP.DR.SPR 250 MG PO (21:10)
[2025-01-09 21:11] VITALS: BP 160/82
[2025-01-09 21:13] VITALS: BP 160/82
[2025-01-10 08:02] VITALS: BP 129/70; PULSE 77; RESP 18; TEMP 36.2; O2SAT 97
[2025-01-10] MEDS: Divalproex Sodium Sprinkles 125 MG CAP.DR.SPR 250 MG PO ×2 (08:19→21:07)
[2025-01-10 14:34] VITALS: BP 140/68; PULSE 76
[2025-01-10 17:20] VITALS: BMI 21.5
[2025-01-10 20:00] VITALS: BP 169/86; PULSE 82; RESP 18; TEMP 36.1; O2SAT 94
[2025-01-10] MEDS: Aspirin Enteric Coated 81 MG TABLET.DR PO (21:05)
--- NOTE | 2025-01-10 23:10 | HO.PSYCHPN ---
Subjective Subjective Date of Service: 01/10/25 Reason For Visit: confusion agitation Subjective Notes: Conditional Voluntary Healthcare Proxy: Yes Interim History: Patient with ongoing significant dysphoria anxiety confusion having intermittent panic attacks. Patient out in the milieu much of the time he is maintaining nutrition. Medication Compliance: Yes Review of Systems Being treated for hypertension ongoing confusion Mental Status Exam Mental Status Exam Narrative: Patient wearing hospital garb been pink bathroom. He is anxious in appearance ambulating without difficulty. Poorly informational difficulty having a logical linear conversation. Mood anxious preoccupied perseveration Easily distracted poor short-term memory no gross suicidal or homicidal impulsivity or thoughts expressed marked lack of insight into what is going on Diagnostics Vital Signs (24Hr): Vital Signs - 24 hr 01/10/25 08:02 01/10/25 14:34 01/10/25 20:00 Temperature 97.2 F 96.9 F Pulse Rate 77 76 82 Respiratory Rate 18 18 Blood Pressure 129/70 140/68 H 169/86 H Pulse Oximetry 97 94 Oxygen Delivery Method Room Air Room Air BMI result Body Mass Index 21.5 Labs 01/01/25 11:36 01/03/25 07:59 Labs: Laboratory Results - last 48 hr 01/01/25 01/03/25 11:36 12:29 Mercury None Detected Amyloid Score (APS2) 0.2728 Abeta42/40 Ratio 0.178 Amyloidosis Interpret Low Likelihood Amyloid Beta 42 Peptide 56 Amyloid Beta 40 Peptide 315 Phosphorylated Tau 217 0.40 H Imaging Radiology Impressions: ITS Impressions Brain MRI 12/15/24 09:35 IMPRESSION: Acute nonhemorrhagic ischemia involving the right precentral gyrus and left middle frontal gyrus concerning for embolic etiology. Extensive white matter disease likely related to small vessel occlusive disease. 5 mm nodular lesion, frontal horn right lateral ventricle. Malignancy cannot be excluded. Recommend IV contrast enhanced MRI brain. Global cerebral atrophy. Electronically signed by: Vincent Pandya MD 12/15/2024 10:21 AM EDT RP Lumbar Puncture Fluoroscopy 12/19/24 10:45 IMPRESSION: Successful fluoroscopic guided L3-4 interlaminar lumbar puncture. Electronically signed by: Kevin Barahona MD 12/19/2024 12:36 PM EDT RP Head/Neck CTA 12/21/24 10:29 IMPRESSION: No main cerebral artery occlusion or embolus. Irregular calcified plaque at the proximal right ICA at representing less than 50% stenosis. No dissection. Probable 2 mm aneurysm, right A2 segment. This critical test result is communicated to: Electronically signed by: Vincent Pandya MD 12/21/2024 12:02 PM EDT RP Medications Medications Current Medications Acetaminophen (Acetaminophen 325 Mg Tablet) 650 mg PO Q6H PRN PRN Reason: Headache/Pain, Scale 1-10 Al Hydroxide/Mg Hydroxide (Magnesium Hydrox/Alum Hydrox 30 Ml Oral.Susp) 30 ml PO Q6H PRN PRN Reason: Heartburn/Nausea Alprazolam (Alprazolam 0.25 Mg Tablet) 0.125 mg PO TID PRN PRN Reason: anxietyrestlessness Last Admin: 01/10/25 10:36 Dose: 0.125 mg Amlodipine Besylate (Amlodipine Besylate 10 Mg Tablet) 10 mg PO BEDTIME OTILIA; Protocol Last Admin: 01/10/25 21:06 Dose: 10 mg Aspirin (Aspirin Enteric Coated 81 Mg Tablet.) 81 mg PO BEDTIME OTILIA Last Admin: 01/10/25 21:05 Dose: 81 mg Atorvastatin Calcium (Atorvastatin Calcium 40 Mg Tablet) 40 mg PO BEDTIME OTILIA Last Admin: 01/10/25 21:06 Dose: 40 mg Clonidine HCl (Clonidine Hcl 0.1 Mg Tablet) 0.1 mg PO BID PRN; Protocol PRN Reason: severe anxiety Last Admin: 12/18/24 20:33 Dose: 0.1 mg Divalproex Sodium (Divalproex Sodium Sprinkles 125 Mg ) 250 mg PO BID OTILIA Last Admin: 01/10/25 21:07 Dose: 250 mg Finasteride (Finasteride 5 Mg Tablet) 5 mg PO DAILY OTILIA Last Admin: 01/10/25 08:18 Dose: 5 mg Hydralazine HCl (Hydralazine Hcl 25 Mg Tablet) 25 mg PO TID OTILIA; Protocol Last Admin: 01/10/25 21:06 Dose: 25 mg Lactase (Lactase Tablet) 1 tab PO Q4H PRN PRN Reason: with dairy Last Admin: 12/26/24 15:00 Dose: 1 tab Losartan Potassium (Losartan Potassium 50 Mg Tablet) 100 mg PO DAILY OTILIA; Protocol Last Admin: 01/10/25 08:19 Dose: 100 mg Magnesium Hydroxide (Milk Of Magnesia 30 Ml Oral.Susp) 30 ml PO DAILY PRN PRN Reason: Constipation Last Admin: 12/19/24 21:38 Dose: 30 ml Melatonin (Melatonin 3 Mg Tablet) 6 mg PO BEDTIME [facility] Last Admin: 01/10/25 21:07 Dose: 6 mg Memantine (Memantine Hcl 5 Mg Tablet) 5 mg PO BID OTILIA Last Admin: 01/10/25 21:06 Dose: 5 mg Olanzapine (Olanzapine 2.5 Mg Tablet) 2.5 mg PO Q4H PRN PRN Reason: anxiety/restlessness Last Admin: 01/03/25 15:14 Dose: 2.5 mg Olanzapine (Olanzapine 5 Mg Tablet) 5 mg PO BEDTIME OTILIA Last Admin: 01/10/25 21:06 Dose: 5 mg Olanzapine (Olanzapine 2.5 Mg Tablet) 2.5 mg PO DAILY [facility] Last Admin: 01/10/25 08:19 Dose: 2.5 mg Omeprazole (Omeprazole 20 Mg Capsule.Dr) 20 mg PO BEDTIME OTILIA Last Admin: 01/10/25 21:06 Dose: 20 mg Tamsulosin HCl (Tamsulosin Hcl 0.4 Mg Capsule) 0.8 mg PO BEDTIME OTILIA Last Admin: 01/10/25 21:07 Dose: 0.8 mg Tolterodine Tartrate (Tolterodine Tartrate La 4 Mg Cap.Er.24h) 4 mg PO DAILY [facility] Last Admin: 01/10/25 08:20 Dose: 4 mg Valacyclovir HCl (Valacyclovir Hcl 500 Mg Tablet) 500 mg PO DAILY [facility] Last Admin: 01/10/25 08:20 Dose: 500 mg Allergies Allergies Allergy/AdvReac Type Severity Reaction Status Date / Time No Known Allergies Allergy Verified 12/16/24 19:54 Assessment & Plan Assessment & Plan (1) Major 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, with agitation: Status: Acute Code(s): F02.811 - Dementia in other diseases classified elsewhere, unspecified severity, with agitation (2) Encephalopathy: Qualifiers: Encephalopathy type: unspecified encephalopathy Qualified Code(s): G93.40 - Encephalopathy, unspecified Status: Acute Code(s): G93.40 - Encephalopathy, unspecified Assessment and Plan: 74 years old man with acute change in mental status with psychiatric symptoms of paranoia and agitation and confusion with forgetfulness. This seems to be a relatively recent and according to him he was fine couple of months ago. This would suggest a rapidly progressive process. Differential diagnosis would include atypical encephalitis from an atypical infection, or an inflammatory process including autoimmune condition. It would also include possibility of Crutzfeld Lobito disease. His MRI of brain did reveal subtle abnormalities suggesting any of these possibilities. I recommend sending serum test for Lyme, syphilis, HIV, and blood test for sed rate. If serum or blood tests do not provide any lead, a lumbar puncture is needed to do testing on CSF. EEG is also recommended, which in some cases can also help. (3) Manic behavior: Status: Acute Code(s): F30.10 - Manic episode without psychotic symptoms, unspecified (4) Hypertension: Qualifiers: Hypertension type: primary hypertension Qualified Code(s): I10 - Essential (primary) hypertension Status: Acute Code(s): I10 - Essential (primary) hypertension (5) OCD (obsessive compulsive disorder): Status: Acute Code(s): F42.9 - Obsessive-compulsive disorder, unspecified Plan 74M PMH mood disorder, HTN, BPH, GERD, HSV, mood disorder presented on section 12 with evelyn/paranoia, found to be hypoxic and hypertensive initially admitted to hospital. Now admitted to [facility] for further care and stabilization for paranoia and agitation. Has been seen by neurology, Results of LP pending. Mood disorder/Paranoia Treatment per psych team Hypertension/HLD Continues on Losartan 100 mg daily, Amlodipine 10 mgs and Hydralazine 25 mgs TID Will change amlodipine to HS dosing. Low Salt diet. Patient asking for salt for his food. Avoid AV reji blockers including propranolol Continue Atorvastatin-LIpid panel WNL. Encephalopathy with abnormal MRI Follow recommendations from Neurology EEG testing negative for CJD or epileptic tendencies. ESR normal HIV, RPR, Lyme testing all negative Results of LP pending History of Bradycardia with normal MN interval Patient not on any AV reji blockers TSH WNL Will need Holter monitor outpatient and cardiology follow up BPH Continue finasteride and tamsulosin On Detrol GERD Omeprazole Avoid food triggers HSV Valacyclovir On Descovy for prep Thank you for allowing me to participate in the care of this patient. Will follow as needed. Please reconsult of any acute concerns or issues arise Assessment and Plan Patient with ongoing obsessional thoughts intense pressured speech racing thoughts. Mirtazapine 7.5 mg at bedtime see if help with insomnia and obsessional anxiety continue olanzapine 5 mg at bedtime with a 2.5 mg prn targeting agitation obsessional thoughts anxiety. Still do not have results from lumbar puncture which may suggest other causes besides vascular brain changes the patient's symptoms 12/25/24: Increase Depakote to 375 mg BID. 12/26: aware his mood is labile, agrees to increase VPA dosing to 500 BID. hyperverbal, anxious. 12/27/2024 Patient continues hyperverbal limited reasoning and executive function hard for him to stay on topic. Check Depakote level [place]utzfeldt-[place]se[place] pending for tomorrow then should have results regarding lumbar puncture. Increase a.m. olanzapine to 5 mg monitor gait 12/28/2024 CJD negative some improvement noted with Depakote and olanzapine less pressured improved anxiety somewhat better able to engage in linear conversation eating and drinking okay flesh pressure remains intermittently elevated will again ask hospitalist service to look at this has been difficult to control Further labs from lumbar puncture pending d/c planning 12/30/2024: No changes in current management plan and note some test results still pending from lumbar puncture 12/31: no changes Reason for continued inpatient stay Substantial Risk for rapid decompensation 01/01/25 Pt with some inc ability to think reason case reviewed with neurology no exact dx vascular plus degenerative? consider namenda 01/02/2025 Patient is still pending some labs neurology does not feel this is infectious or paraneoplastic. Looking at discharge to protected environment Case discussed with brother extensively reviewed option of Namenda mention consideration of the [facility] 01/03/2025 Case reviewed with neurology and discussed still unclear diagnosis and patient's mental status remains severely impaired. Discussion held regarding possibility of transferred to [facility] neurologist felt we should wait and see if amyloid studies come back positive and healthcare proxy Sai did have a discussion with Dr. López regarding above possibility. Consideration could be given to attempt at PET scan amyloid PET scan at some point neurologist felt only AYAD Remy blood work was positive. Discussed option of Namenda will start tomorrow monitor for any adverse effects hopefully may help with cognition and behavioral issues 01/04/2025 Start Namenda 5 mg daily referral process started regarding [facility] case reviewed with neurology and with healthcare proxy. Continue Depakote olanz patient has apine seems somewhat helpful in decreasing agitation irritability and anxiety. Still pending results from amyloid Regarding hypertension in better control also being followed by hospitalist service 01/05/25 Patient's case reviewed with treatment team reviewed with healthcare proxy. Patient has been referred to [facility] they only have emergency meds for surgery extensive material sent case distress discussed with transfer team Deborah oneal are still pending results from amyloid and tau testing patient has been more lethargic remains on olanzapine b.i.d. and Depakote 500 b.i.d.. Will lower morning olanzapine 01/08/2025 [facility] again denies transfer stating they will only take acute surgical patient's to neurology or acute stroke. Case reviewed with Dr. López regularly from Neurology. Seems to be getting more confused increase Namenda to 5 b.i.d. lower Depakote 250 b.i.d. as tolerated pending Alzheimer screening results 01/09/25 Referrals to [facility] but refusing transfer. pt neg blood work for tau and amyloid. Pt on dec depakote in case worsening confusion. Pt unabe to participate in linear planning except for shot periods. Episodes of severe anxiety. 01/10/2025 Case reviewed with healthcare proxy as a neurologist in [place] he would like to speak to patient does have power of state's attorney who is not patient's brother. Patient has been accepted in tense living situation no focal findings no seizure activity blood pressure in better control generally patient maintaining nutrition has been getting somewhat more anxious and dysphoric not understanding why he is here Reason for continued inpatient stay Substantial Risk for: inability to function, rapid decompensation and med/psych decompensation Time Spent With Patient Time: Total time managing care of this patient today ____ minutes.
[2025-01-11 08:35] VITALS: BMI 21.4
[2025-01-11 08:45] VITALS: BP 112/69; PULSE 73; RESP 20; TEMP 36.9; O2SAT 96
[2025-01-11] MEDS: Divalproex Sodium Sprinkles 125 MG CAP.DR.SPR 250 MG PO ×2 (09:08→20:59)
[2025-01-11 15:14] VITALS: BP 123/60; O2SAT 89
--- NOTE | 2025-01-11 15:57 | PC.NURSE ---
RN noticed pt had a purplish tint to his lips. RN assessed VS which were 123/60, pulse 76 and pulse ox 89. Pt was asked to take deep breaths with O2 going to 93% briefly but then back down to 89%. Pt lung sounds clear. Pt is asymptomatic and reports no dizziness or SOB. No acute distress noted, pt speaking at his baseline. Provider aware. Pt refused repeat VS.
[2025-01-11 17:34] VITALS: PULSE 74; RESP 18; O2SAT 95
[2025-01-11 20:00] VITALS: BP 144/80; PULSE 78; RESP 18; TEMP 36.5; O2SAT 93
[2025-01-11] MEDS: Aspirin Enteric Coated 81 MG TABLET.DR PO (20:57)
--- NOTE | 2025-01-11 21:47 | HO.PSYCHPN ---
Subjective Subjective Date of Service: 01/11/25 Reason For Visit: confusion agitation Subjective Notes: Conditional Voluntary Healthcare Proxy: Yes Interim History: Pt seen case reviewed tx planning pt seemn. Pt has been anxious dysphoric asking to go home. Periods of anxiety Medication Compliance: Yes Mental Status Exam Mental Status Exam Narrative: Pt is anxious in appearance ambulating without difficulty. Poorly informational difficulty having a logical linear conversation but perseverative. Mood anxious depressed somewhat agitated preoccupied Easily distracted poor short-term memory no gross suicidal or homicidal impulsivity or thoughts expressed marked lack of insight into what is going on can not or unwilling to answer direct questions what brought hospital does he understand why he is in the hospital some degree of lability not aggressive Diagnostics Vital Signs (24Hr): Vital Signs - 24 hr 01/11/25 08:45 01/11/25 15:14 01/11/25 17:34 Temperature 98.4 F Pulse Rate 73 74 Respiratory Rate 20 18 Blood Pressure 112/69 123/60 Pulse Oximetry 96 89 L 95 Oxygen Delivery Method Room Air Room Air Room Air 01/11/25 20:00 Temperature 97.7 F Pulse Rate 78 Respiratory Rate 18 Blood Pressure 144/80 H Pulse Oximetry 93 Oxygen Delivery Method Room Air BMI result Body Mass Index 21.4 Labs 01/01/25 11:36 01/03/25 07:59 Imaging Radiology Impressions: ITS Impressions Brain MRI 12/15/24 09:35 IMPRESSION: Acute nonhemorrhagic ischemia involving the right precentral gyrus and left middle frontal gyrus concerning for embolic etiology. Extensive white matter disease likely related to small vessel occlusive disease. 5 mm nodular lesion, frontal horn right lateral ventricle. Malignancy cannot be excluded. Recommend IV contrast enhanced MRI brain. Global cerebral atrophy. Electronically signed by: Vincent Pandya MD 12/15/2024 10:21 AM EDT RP Lumbar Puncture Fluoroscopy 12/19/24 10:45 IMPRESSION: Successful fluoroscopic guided L3-4 interlaminar lumbar puncture. Electronically signed by: Kevin Barahona MD 12/19/2024 12:36 PM EDT RP Head/Neck CTA 12/21/24 10:29 IMPRESSION: No main cerebral artery occlusion or embolus. Irregular calcified plaque at the proximal right ICA at representing less than 50% stenosis. No dissection. Probable 2 mm aneurysm, right A2 segment. This critical test result is communicated to: Electronically signed by: Vincent Pandya MD 12/21/2024 12:02 PM EDT Medications Medications Current Medications Acetaminophen (Acetaminophen 325 Mg Tablet) 650 mg PO Q6H PRN PRN Reason: Headache/Pain, Scale 1-10 Al Hydroxide/Mg Hydroxide (Magnesium Hydrox/Alum Hydrox 30 Ml Oral.Susp) 30 ml PO Q6H PRN PRN Reason: Heartburn/Nausea Alprazolam (Alprazolam 0.25 Mg Tablet) 0.125 mg PO TID PRN PRN Reason: anxietyrestlessness Last Admin: 01/10/25 10:36 Dose: 0.125 mg Amlodipine Besylate (Amlodipine Besylate 10 Mg Tablet) 10 mg PO BEDTIME [facility]; Protocol Last Admin: 01/11/25 20:58 Dose: 10 mg Aspirin (Aspirin Enteric Coated 81 Mg Tablet.) 81 mg PO BEDTIME [facility] Last Admin: 01/11/25 20:57 Dose: 81 mg Atorvastatin Calcium (Atorvastatin Calcium 40 Mg Tablet) 40 mg PO BEDTIME [facility] Last Admin: 01/11/25 20:58 Dose: 40 mg Clonidine HCl (Clonidine Hcl 0.1 Mg Tablet) 0.1 mg PO BID PRN; Protocol PRN Reason: severe anxiety Last Admin: 12/18/24 20:33 Dose: 0.1 mg Divalproex Sodium (Divalproex Sodium Sprinkles 125 Mg Cap.Spr) 250 mg PO BID [facility] Last Admin: 01/11/25 20:59 Dose: 250 mg Finasteride (Finasteride 5 Mg Tablet) 5 mg PO DAILY [facility] Last Admin: 01/11/25 09:06 Dose: 5 mg Hydralazine HCl (Hydralazine Hcl 25 Mg Tablet) 25 mg PO TID [facility]; Protocol Last Admin: 01/11/25 20:57 Dose: 25 mg Lactase (Lactase Tablet) 1 tab PO Q4H PRN PRN Reason: with dairy Last Admin: 12/26/24 15:00 Dose: 1 tab Losartan Potassium (Losartan Potassium 50 Mg Tablet) 100 mg PO DAILY [facility]; Protocol Last Admin: 01/11/25 09:07 Dose: 100 mg Magnesium Hydroxide (Milk Of Magnesia 30 Ml Oral.Susp) 30 ml PO DAILY PRN PRN Reason: Constipation Last Admin: 12/19/24 21:38 Dose: 30 ml Melatonin (Melatonin 3 Mg Tablet) 6 mg PO BEDTIME [facility] Last Admin: 01/11/25 20:58 Dose: 6 mg Memantine (Memantine Hcl 5 Mg Tablet) 5 mg PO BID [facility] Last Admin: 01/11/25 20:58 Dose: 5 mg Olanzapine (Olanzapine 2.5 Mg Tablet) 2.5 mg PO Q4H PRN PRN Reason: anxiety/restlessness Last Admin: 01/03/25 15:14 Dose: 2.5 mg Olanzapine (Olanzapine 5 Mg Tablet) 5 mg PO BEDTIME [facility] Last Admin: 01/11/25 20:59 Dose: 5 mg Olanzapine (Olanzapine 2.5 Mg Tablet) 2.5 mg PO DAILY [facility] Last Admin: 01/11/25 09:07 Dose: 2.5 mg Omeprazole (Omeprazole 20 Mg Capsule.Dr) 20 mg PO BEDTIME [facility] Last Admin: 01/11/25 20:59 Dose: 20 mg Tamsulosin HCl (Tamsulosin Hcl 0.4 Mg Capsule) 0.8 mg PO BEDTIME [facility] Last Admin: 01/11/25 20:59 Dose: 0.8 mg Tolterodine Tartrate (Tolterodine Tartrate La 4 Mg Cap.Er.24h) 4 mg PO DAILY [facility] Last Admin: 01/11/25 09:07 Dose: 4 mg Valacyclovir HCl (Valacyclovir Hcl 500 Mg Tablet) 500 mg PO DAILY [facility] Last Admin: 01/11/25 09:09 Dose: 500 mg Allergies Allergies Allergy/AdvReac Type Severity Reaction Status Date / Time No Known Allergies Allergy Verified 12/16/24 19:54 Assessment & Plan Assessment & Plan (1) Major 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, with agitation: Status: Acute Code(s): F02.811 - Dementia in other diseases classified elsewhere, unspecified severity, with agitation (2) Encephalopathy: Qualifiers: Encephalopathy type: unspecified encephalopathy Qualified Code(s): G93.40 - Encephalopathy, unspecified Status: Acute Code(s): G93.40 - Encephalopathy, unspecified Assessment and Plan: 74 years old man with acute change in mental status with psychiatric symptoms of paranoia and agitation and confusion with forgetfulness. This seems to be a relatively recent and according to him he was fine couple of months ago. This would suggest a rapidly progressive process. Differential diagnosis would include atypical encephalitis from an atypical infection, or an inflammatory process including autoimmune condition. It would also include possibility of Crutzfeld Lobito disease. His MRI of brain did reveal subtle abnormalities suggesting any of these possibilities. I recommend sending serum test for Lyme, syphilis, HIV, and blood test for sed rate. If serum or blood tests do not provide any lead, a lumbar puncture is needed to do testing on CSF. EEG is also recommended, which in some cases can also help. (3) Manic behavior: Status: Acute Code(s): F30.10 - Manic episode without psychotic symptoms, unspecified (4) Hypertension: Qualifiers: Hypertension type: primary hypertension Qualified Code(s): I10 - Essential (primary) hypertension Status: Acute Code(s): I10 - Essential (primary) hypertension (5) OCD (obsessive compulsive disorder): Status: Acute Code(s): F42.9 - Obsessive-compulsive disorder, unspecified Plan 74M PMH mood disorder, HTN, BPH, GERD, HSV, mood disorder presented on section 12 with evelyn/paranoia, found to be hypoxic and hypertensive initially admitted to hospital. Now admitted to [facility] for further care and stabilization for paranoia and agitation. Has been seen by neurology, Results of LP pending. Mood disorder/Paranoia Treatment per psych team Hypertension/HLD Continues on Losartan 100 mg daily, Amlodipine 10 mgs and Hydralazine 25 mgs TID Will change amlodipine to HS dosing. Low Salt diet. Patient asking for salt for his food. Avoid AV reji blockers including propranolol Continue Atorvastatin-LIpid panel WNL. Encephalopathy with abnormal MRI Follow recommendations from Neurology EEG testing negative for CJD or epileptic tendencies. ESR normal HIV, RPR, Lyme testing all negative Results of LP pending History of Bradycardia with normal HI interval Patient not on any AV reji blockers TSH WNL Will need Holter monitor outpatient and cardiology follow up BPH Continue finasteride and tamsulosin On Detrol GERD Omeprazole Avoid food triggers HSV Valacyclovir On Descovy for prep Thank you for allowing me to participate in the care of this patient. Will follow as needed. Please reconsult of any acute concerns or issues arise Assessment and Plan Patient with ongoing obsessional thoughts intense pressured speech racing thoughts. Mirtazapine 7.5 mg at bedtime see if help with insomnia and obsessional anxiety continue olanzapine 5 mg at bedtime with a 2.5 mg prn targeting agitation obsessional thoughts anxiety. Still do not have results from lumbar puncture which may suggest other causes besides vascular brain changes the patient's symptoms 12/25/24: Increase Depakote to 375 mg BID. 12/26: aware his mood is labile, agrees to increase VPA dosing to 500 BID. hyperverbal, anxious. 12/27/2024 Patient continues hyperverbal limited reasoning and executive function hard for him to stay on topic. Check Depakote level Creutzfeldt-Oseas pending for tomorrow then should have results regarding lumbar puncture. Increase a.m. olanzapine to 5 mg monitor gait 12/28/2024 CJD negative some improvement noted with Depakote and olanzapine less pressured improved anxiety somewhat better able to engage in linear conversation eating and drinking okay flesh pressure remains intermittently elevated will again ask hospitalist service to look at this has been difficult to control Further labs from lumbar puncture pending d/c planning 12/30/2024: No changes in current management plan and note some test results still pending from lumbar puncture 12/31: no changes Reason for continued inpatient stay Substantial Risk for rapid decompensation 01/01/25 Pt with some inc ability to think reason case reviewed with neurology no exact dx vascular plus degenerative? consider namenda 01/02/2025 Patient is still pending some labs neurology does not feel this is infectious or paraneoplastic. Looking at discharge to protected environment Case discussed with brother extensively reviewed option of Namenda mention consideration of the [facility] 01/03/2025 Case reviewed with neurology and discussed still unclear diagnosis and patient's mental status remains severely impaired. Discussion held regarding possibility of transferred to [facility] neurologist felt we should wait and see if amyloid studies come back positive and healthcare proxy Sai did have a discussion with Dr. López regarding above possibility. Consideration could be given to attempt at PET scan amyloid PET scan at some point neurologist felt only Jonel blood work was positive. Discussed option of Namenda will start tomorrow monitor for any adverse effects hopefully may help with cognition and behavioral issues 01/04/2025 Start Namenda 5 mg daily referral process started regarding [facility] case reviewed with neurology and with healthcare proxy. Continue Depakote olanz patient has apine seems somewhat helpful in decreasing agitation irritability and anxiety. Still pending results from amyloid Regarding hypertension in better control also being followed by hospitalist service 01/05/25 Patient's case reviewed with treatment team reviewed with healthcare proxy. Patient has been referred to [facility] they only have emergency meds for surgery extensive material sent case distress discussed with transfer team Deborah oneal are still pending results from amyloid and tau testing patient has been more lethargic remains on olanzapine b.i.d. and Depakote 500 b.i.d.. Will lower morning olanzapine 01/08/2025 [facility] again denies transfer stating they will only take acute surgical patient's to neurology or acute stroke. Case reviewed with Dr. López regularly from Neurology. Seems to be getting more confused increase Namenda to 5 b.i.d. lower Depakote 250 b.i.d. as tolerated pending Alzheimer screening results 01/09/25 [facility]errals to [facility] but refusing transfer. pt neg blood work for tau and amyloid. Pt on dec depakote in case worsening confusion. Pt unabe to participate in linear planning except for shot periods. Episodes of severe anxiety. 01/10/2025 Case reviewed with healthcare proxy as a neurologist in [place] he would like to speak to patient does have power of tax attorney who is not patient's brother. Patient has been accepted in tense living situation no focal findings no seizure activity blood pressure in better control generally patient maintaining nutrition has been getting somewhat more anxious and dysphoric not understanding why he is here 01/11/2025 Issues clarified with hospital tax attorney regarding assisted living working with patient's [id number] and will also continue working with John patient's brother and healthcare proxy. Patient increasingly irritable distraught increase Namenda as tolerated Depakote has been lowered alprazolam 0.125 mg PO TID PRN Reason for continued inpatient stay Substantial Risk for: inability to function, rapid decompensation and med/psych decompensation Time Spent With Patient Time: Total time managing care of this patient today ____ minutes.
[2025-01-12 07:39] LABS: Prealbumin, CSF 4.7
[2025-01-12 07:40] LABS: Albumin, CSF 57.7
[2025-01-12 07:41] LABS: Beta Globulin, CSF 16.7; Gamma Globulin 7.4
[2025-01-12 08:45] VITALS: BP 116/62; PULSE 70; RESP 18; TEMP 36.5; O2SAT 93
[2025-01-12] MEDS: Divalproex Sodium Sprinkles 125 MG CAP.DR.SPR 250 MG PO ×3 (09:27→20:45)
--- NOTE | 2025-01-12 10:03 | P.PNIM_ITS ---
Subjective Subjective Date of Service: 01/12/25 Interval History: Patient is awake and alert, had an episode of hypoxia yesterday 89% which resolved on its own. No evidence of coughing or choking with intake. Behavior at baseline, easily distracted not able to answer direct questions. Did not appear to be in any distress. Appetite at baseline. Out in milieu with peers. Review of Systems Limited by cognition, denies any pain or trouble breathing. Physical Exam 2 Exam: Exam: CONST: Alert and confused, in NAD. Thimm appears unkempt HEENT: Normocephalic, atraumatic, MMM, Eyes clear, Neck supple RESP: Lungs clear, RRR even and regular HEART:,RRR, S1, S2. No edema GI:Abdomen Soft NT, ND. + BS times four :Deferred SKIN: Warm dry and intact, no visible lesions or rashes NEURO:CN II-XII Intact bilaterally, Sensation intact. Speech clear PSYCH: Cooperative, easily loses train of thought, answers questions after redirection. Vital Signs: Vital Signs: Last Vital Signs Temp 97.7 F 01/12/25 08:45 Pulse 70 01/12/25 08:45 Resp 18 01/12/25 08:45 BP 116/62 01/12/25 08:45 Pulse Ox 93 01/12/25 08:45 O2 Del Method Room Air 01/12/25 08:45 BMI result Body Mass Index 21.4 Objective Data Active Medications Acetaminophen (Acetaminophen 325 Mg Tablet) 650 mg PO Q6H PRN PRN Reason: Headache/Pain, Scale 1-10 Al Hydroxide/Mg Hydroxide (Magnesium Hydrox/Alum Hydrox 30 Ml Oral.Susp) 30 ml PO Q6H PRN PRN Reason: Heartburn/Nausea Alprazolam (Alprazolam 0.25 Mg Tablet) 0.125 mg PO TID PRN PRN Reason: anxietyrestlessness Last Admin: 01/10/25 10:36 Dose: 0.125 mg Documented By: SAMINA Amlodipine Besylate (Amlodipine Besylate 10 Mg Tablet) 10 mg PO BEDTIME [facility]; Protocol Last Admin: 01/11/25 20:58 Dose: 10 mg Documented By: DO Aspirin (Aspirin Enteric Coated 81 Mg Tablet.) 81 mg PO BEDTIME [facility] Last Admin: 01/11/25 20:57 Dose: 81 mg Documented By: DO Atorvastatin Calcium (Atorvastatin Calcium 40 Mg Tablet) 40 mg PO BEDTIME [facility] Last Admin: 01/11/25 20:58 Dose: 40 mg Documented By: DO Clonidine HCl (Clonidine Hcl 0.1 Mg Tablet) 0.1 mg PO BID PRN; Protocol PRN Reason: severe anxiety Last Admin: 12/18/24 20:33 Dose: 0.1 mg Documented By: KINGS Divalproex Sodium (Divalproex Sodium Sprinkles 125 Mg ) 250 mg PO BID [facility] Last Admin: 01/12/25 09:27 Dose: 250 mg Documented By: MAIKEL Finasteride (Finasteride 5 Mg Tablet) 5 mg PO DAILY [facility] Last Admin: 01/12/25 09:29 Dose: 5 mg Documented By: MAIKEL Hydralazine HCl (Hydralazine Hcl 25 Mg Tablet) 25 mg PO TID [facility]; Protocol Last Admin: 01/12/25 09:29 Dose: 25 mg Documented By: MAIKEL Lactase (Lactase Tablet) 1 tab PO Q4H PRN PRN Reason: with dairy Last Admin: 12/26/24 15:00 Dose: 1 tab Documented By: MAIKEL Losartan Potassium (Losartan Potassium 50 Mg Tablet) 100 mg PO DAILY [facility]; Protocol Last Admin: 01/12/25 09:27 Dose: 100 mg Documented By: MAIKEL Magnesium Hydroxide (Milk Of Magnesia 30 Ml Oral.Susp) 30 ml PO DAILY PRN PRN Reason: Constipation Last Admin: 12/19/24 21:38 Dose: 30 ml Documented By: DELON Melatonin (Melatonin 3 Mg Tablet) 6 mg PO BEDTIME [facility] Last Admin: 01/11/25 20:58 Dose: 6 mg Documented By: DO Memantine (Memantine Hcl 5 Mg Tablet) 5 mg PO BID [facility] Last Admin: 01/12/25 09:29 Dose: 5 mg Documented By: MAIKEL Olanzapine (Olanzapine 2.5 Mg Tablet) 2.5 mg PO Q4H PRN PRN Reason: anxiety/restlessness Last Admin: 01/03/25 15:14 Dose: 2.5 mg Documented By: MAIKEL Olanzapine (Olanzapine 5 Mg Tablet) 5 mg PO BEDTIME [facility] Last Admin: 01/11/25 20:59 Dose: 5 mg Documented By: DO Olanzapine (Olanzapine 2.5 Mg Tablet) 2.5 mg PO DAILY [facility] Last Admin: 01/12/25 09:28 Dose: 2.5 mg Documented By: MAIKEL Omeprazole (Omeprazole 20 Mg Capsule.) 20 mg PO BEDTIME [facility] Last Admin: 01/11/25 20:59 Dose: 20 mg Documented By: DO Tamsulosin HCl (Tamsulosin Hcl 0.4 Mg Capsule) 0.8 mg PO BEDTIME [facility] Last Admin: 01/11/25 20:59 Dose: 0.8 mg Documented By: DO Tolterodine Tartrate (Tolterodine Tartrate La 4 Mg Cap.Er.24h) 4 mg PO DAILY [facility] Last Admin: 01/12/25 09:28 Dose: 4 mg Documented By: MAIKEL Valacyclovir HCl (Valacyclovir Hcl 500 Mg Tablet) 500 mg PO DAILY [facility] Last Admin: 01/12/25 09:29 Dose: 500 mg Documented By: MAIKEL Labs 01/12/25 13:18 01/12/25 13:18 Labs: Laboratory Results - last 24 hr 12/19/24 14:48 CSF Total Protein PEP 30 CSF Prealbumin 4.7 CSF Albumin 57.7 CSF Qbcby-4-Itjjpqqh 5.2 CSF Ftqfq-2-Qmvphmmu 8.3 CSF Beta Globulin 16.7 CSF Gamma Globulin 7.4 CSF PEP Interpret SEE NOTE Assessment and Plan (1) Manic behavior: Status: Acute Plan 74M PMH mood disorder, HTN, BPH, GERD, HSV, mood disorder presented on section 12 with evelyn/paranoia, found to be hypoxic and hypertensive initially admitted to hospital. Now admitted to [facility] for further care and stabilization for paranoia and agitation. Has been seen by neurology, Results of LP pending. Brief episode of hypoxia once yesterday to 89%, improved Chest x-ray negative for acute disease, labs with slight abnormalities, encourage fluids repeat in am. Urinalysis negative Mood disorder/Paranoia/major neurocognitive disorder/dementia Treatment per psych team Hypertension/HLD Continues on Losartan 100 mg daily, Amlodipine 10 mgs and Hydralazine 25 mgs TID Blood pressure is stable. Low Salt diet. Patient asking for salt for his food. Avoid AV reji blockers including propranolol Continue Atorvastatin-Lipid panel WNL. Encephalopathy with abnormal MRI Follow recommendations from Neurology EEG testing negative for CJD or epileptic tendencies. ESR normal HIV, RPR, Lyme testing all negative History of Bradycardia with normal SD interval Patient not on any AV reji blockers TSH WNL Will need Holter monitor outpatient and cardiology follow up BPH Continue finasteride and tamsulosin On Detrol GERD Omeprazole Avoid food triggers HSV Valacyclovir On Descovy for prep Thank you for allowing me to participate in the care of this patient. Will follow as needed. Please reconsult of any acute concerns or issues arise Quality Stroke Does the patient have a stroke diagnosis?: No VTE Prior VTE?: No VTE Risk Level:: Medical - low VTE Device Contraindication: Treatment Not Indicated VTE Drug Contraindication: Treatment Not Indicated
--- NOTE | 2025-01-12 11:37 | HO.PSYCHPN ---
Subjective Subjective Date of Service: 01/12/25 Reason For Visit: confusion agitation Subjective Notes: Conditional Voluntary Healthcare Proxy: Yes Interim History: Patient seen psychiatric follow-up. Case reviewed in treatment planning case reviewed with hospitalist service. Chest x-ray shows there is a hiatal hernia unclear if causing any pulmonary problems. Hospitalist service did not think so. Patient mildly hyponatremic . Patient continues somewhat pressured intrusive at times with staff often quite perseverative asking for different things but illogical tangential frequently blood pressure in better control Medication Compliance: Yes Review of Systems Hyponatremia hiatal hernia noted on chest x-ray Mental Status Exam Mental Status Exam Narrative: Pt is anxious in appearance ambulating without difficulty. Patient focused on being told that he has a large sum of money, then has something of a flight of ideas tangential not logical or linear. When asked as specific question asking for information has a very hard time just answering the question Mood anxious depressed somewhat agitated preoccupied Easily distracted poor short-term memory no gross suicidal or homicidal impulsivity or thoughts expressed marked lack of insight he does get across that he has been feeling trapped unclear if able to take in information regarding discharge planning Diagnostics Vital Signs (24Hr): Vital Signs - 24 hr 01/11/25 15:14 01/11/25 17:34 01/11/25 20:00 Temperature 97.7 F Pulse Rate 74 78 Respiratory Rate 18 18 Blood Pressure 123/60 144/80 H Pulse Oximetry 89 L 95 93 Oxygen Delivery Method Room Air Room Air Room Air 01/12/25 08:45 Temperature 97.7 F Pulse Rate 70 Respiratory Rate 18 Blood Pressure 116/62 Pulse Oximetry 93 Oxygen Delivery Method Room Air BMI result Body Mass Index 21.4 Labs 01/12/25 13:18 01/12/25 13:18 Labs: Laboratory Results - last 48 hr 12/19/24 14:48 CSF Total Protein PEP 30 CSF Prealbumin 4.7 CSF Albumin 57.7 CSF Pewgw-[id number] 5.2 CSF Clous-3-Yuitievn 8.3 CSF Beta Globulin 16.7 CSF Gamma Globulin 7.4 CSF PEP Interpret SEE NOTE Imaging Radiology Impressions: ITS Impressions Brain MRI 12/15/24 09:35 IMPRESSION: Acute nonhemorrhagic ischemia involving the right precentral gyrus and left middle frontal gyrus concerning for embolic etiology. Extensive white matter disease likely related to small vessel occlusive disease. 5 mm nodular lesion, frontal horn right lateral ventricle. Malignancy cannot be excluded. Recommend IV contrast enhanced MRI brain. Global cerebral atrophy. Electronically signed by: Vincent Pandya MD 12/15/2024 10:21 AM EDT RP Lumbar Puncture Fluoroscopy 12/19/24 10:45 IMPRESSION: Successful fluoroscopic guided L3-4 interlaminar lumbar puncture. Electronically signed by: Kevin Barahona MD 12/19/2024 12:36 PM EDT RP Head/Neck CTA 12/21/24 10:29 IMPRESSION: No main cerebral artery occlusion or embolus. Irregular calcified plaque at the proximal right ICA at representing less than 50% stenosis. No dissection. Probable 2 mm aneurysm, right A2 segment. This critical test result is communicated to: Electronically signed by: Vincent Pandya MD 12/21/2024 12:02 PM EDT RP Chest X-Ray 01/12/25 11:15 IMPRESSION: No acute disease. Hiatal hernia involving stomach fundus. Electronically signed by: Mario Gutiérrez MD 01/12/2025 11:28 AM EDT RP Medications Medications Current Medications Acetaminophen (Acetaminophen 325 Mg Tablet) 650 mg PO Q6H PRN PRN Reason: Headache/Pain, Scale 1-10 Al Hydroxide/Mg Hydroxide (Magnesium Hydrox/Alum Hydrox 30 Ml Oral.Susp) 30 ml PO Q6H PRN PRN Reason: Heartburn/Nausea Alprazolam (Alprazolam 0.25 Mg Tablet) 0.125 mg PO TID PRN PRN Reason: anxietyrestlessness Last Admin: 01/10/25 10:36 Dose: 0.125 mg Amlodipine Besylate (Amlodipine Besylate 10 Mg Tablet) 10 mg PO BEDTIME OTILIA; Protocol Last Admin: 01/11/25 20:58 Dose: 10 mg Aspirin (Aspirin Enteric Coated 81 Mg Tablet.Dr) 81 mg PO BEDTIME OTILIA Last Admin: 01/11/25 20:57 Dose: 81 mg Atorvastatin Calcium (Atorvastatin Calcium 40 Mg Tablet) 40 mg PO BEDTIME OTILIA Last Admin: 01/11/25 20:58 Dose: 40 mg Clonidine HCl (Clonidine Hcl 0.1 Mg Tablet) 0.1 mg PO BID PRN; Protocol PRN Reason: severe anxiety Last Admin: 12/18/24 20:33 Dose: 0.1 mg Divalproex Sodium (Divalproex Sodium Sprinkles 125 Mg Cap.DrHamiltonSpr) 250 mg PO BID [facility] Last Admin: 01/12/25 09:27 Dose: 250 mg Finasteride (Finasteride 5 Mg Tablet) 5 mg PO DAILY OTILIA Last Admin: 01/12/25 09:29 Dose: 5 mg Hydralazine HCl (Hydralazine Hcl 25 Mg Tablet) 25 mg PO TID OTILIA; Protocol Last Admin: 01/12/25 09:29 Dose: 25 mg Lactase (Lactase Tablet) 1 tab PO Q4H PRN PRN Reason: with dairy Last Admin: 12/26/24 15:00 Dose: 1 tab Losartan Potassium (Losartan Potassium 50 Mg Tablet) 100 mg PO DAILY [facility]; Protocol Last Admin: 01/12/25 09:27 Dose: 100 mg Magnesium Hydroxide (Milk Of Magnesia 30 Ml Oral.Susp) 30 ml PO DAILY PRN PRN Reason: Constipation Last Admin: 12/19/24 21:38 Dose: 30 ml Melatonin (Melatonin 3 Mg Tablet) 6 mg PO BEDTIME OTILIA Last Admin: 01/11/25 20:58 Dose: 6 mg Memantine (Memantine Hcl 5 Mg Tablet) 5 mg PO BID [facility] Last Admin: 01/12/25 09:29 Dose: 5 mg Olanzapine (Olanzapine 2.5 Mg Tablet) 2.5 mg PO Q4H PRN PRN Reason: anxiety/restlessness Last Admin: 01/03/25 15:14 Dose: 2.5 mg Olanzapine (Olanzapine 5 Mg Tablet) 5 mg PO BEDTIME OTILIA Last Admin: 01/11/25 20:59 Dose: 5 mg Olanzapine (Olanzapine 2.5 Mg Tablet) 2.5 mg PO DAILY [facility] Last Admin: 01/12/25 09:28 Dose: 2.5 mg Omeprazole (Omeprazole 20 Mg Capsule.Dr) 20 mg PO BEDTIME OTILIA Last Admin: 01/11/25 20:59 Dose: 20 mg Tamsulosin HCl (Tamsulosin Hcl 0.4 Mg Capsule) 0.8 mg PO BEDTIME OTILIA Last Admin: 01/11/25 20:59 Dose: 0.8 mg Tolterodine Tartrate (Tolterodine Tartrate La 4 Mg Cap.Er.24h) 4 mg PO DAILY OTILIA Last Admin: 01/12/25 09:28 Dose: 4 mg Valacyclovir HCl (Valacyclovir Hcl 500 Mg Tablet) 500 mg PO DAILY [facility] Last Admin: 01/12/25 09:29 Dose: 500 mg Allergies Allergies Allergy/AdvReac Type Severity Reaction Status Date / Time No Known Allergies Allergy Verified 12/16/24 19:54 Assessment & Plan Assessment & Plan (1) Major 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, with agitation: Status: Acute Code(s): F02.811 - Dementia in other diseases classified elsewhere, unspecified severity, with agitation (2) Encephalopathy: Qualifiers: Encephalopathy type: unspecified encephalopathy Qualified Code(s): G93.40 - Encephalopathy, unspecified Status: Acute Code(s): G93.40 - Encephalopathy, unspecified Assessment and Plan: 74 years old man with acute change in mental status with psychiatric symptoms of paranoia and agitation and confusion with forgetfulness. This seems to be a relatively recent and according to him he was fine couple of months ago. This would suggest a rapidly progressive process. Differential diagnosis would include atypical encephalitis from an atypical infection, or an inflammatory process including autoimmune condition. It would also include possibility of Crutzfeld Lobito disease. His MRI of brain did reveal subtle abnormalities suggesting any of these possibilities. I recommend sending serum test for Lyme, syphilis, HIV, and blood test for sed rate. If serum or blood tests do not provide any lead, a lumbar puncture is needed to do testing on CSF. EEG is also recommended, which in some cases can also help. (3) Manic behavior: Status: Acute Code(s): F30.10 - Manic episode without psychotic symptoms, unspecified (4) Hypertension: Qualifiers: Hypertension type: primary hypertension Qualified Code(s): I10 - Essential (primary) hypertension Status: Acute Code(s): I10 - Essential (primary) hypertension (5) OCD (obsessive compulsive disorder): Status: Acute Code(s): F42.9 - Obsessive-compulsive disorder, unspecified Plan 74M PMH mood disorder, HTN, BPH, GERD, HSV, mood disorder presented on section 12 with evelyn/paranoia, found to be hypoxic and hypertensive initially admitted to hospital. Now admitted to [facility] for further care and stabilization for paranoia and agitation. Has been seen by neurology, Results of LP pending. Mood disorder/Paranoia Treatment per psych team Hypertension/HLD Continues on Losartan 100 mg daily, Amlodipine 10 mgs and Hydralazine 25 mgs TID Will change amlodipine to HS dosing. Low Salt diet. Patient asking for salt for his food. Avoid AV reji blockers including propranolol Continue Atorvastatin-LIpid panel WNL. Encephalopathy with abnormal MRI Follow recommendations from Neurology EEG testing negative for CJD or epileptic tendencies. ESR normal HIV, RPR, Lyme testing all negative Results of LP pending History of Bradycardia with normal TX interval Patient not on any AV reji blockers TSH WNL Will need Holter monitor outpatient and cardiology follow up BPH Continue finasteride and tamsulosin On Detrol GERD Omeprazole Avoid food triggers HSV Valacyclovir On Descovy for prep Thank you for allowing me to participate in the care of this patient. Will follow as needed. Please reconsult of any acute concerns or issues arise Assessment and Plan Patient with ongoing obsessional thoughts intense pressured speech racing thoughts. Mirtazapine 7.5 mg at bedtime see if help with insomnia and obsessional anxiety continue olanzapine 5 mg at bedtime with a 2.5 mg prn targeting agitation obsessional thoughts anxiety. Still do not have results from lumbar puncture which may suggest other causes besides vascular brain changes the patient's symptoms 12/25/24: Increase Depakote to 375 mg BID. 12/26: aware his mood is labile, agrees to increase VPA dosing to 500 BID. hyperverbal, anxious. 12/27/2024 Patient continues hyperverbal limited reasoning and executive function hard for him to stay on topic. Check Depakote level [place] pending for tomorrow then should have results regarding lumbar puncture. Increase a.m. olanzapine to 5 mg monitor gait 12/28/2024 CJD negative some improvement noted with Depakote and olanzapine less pressured improved anxiety somewhat better able to engage in linear conversation eating and drinking okay flesh pressure remains intermittently elevated will again ask hospitalist service to look at this has been difficult to control Further labs from lumbar puncture pending d/c planning 12/30/2024: No changes in current management plan and note some test results still pending from lumbar puncture 12/31: no changes Reason for continued inpatient stay Substantial Risk for rapid decompensation 01/01/25 Pt with some inc ability to think reason case reviewed with neurology no exact dx vascular plus degenerative? consider namenda 01/02/2025 Patient is still pending some labs neurology does not feel this is infectious or paraneoplastic. Looking at discharge to protected environment Case discussed with brother extensively reviewed option of Namenda mention consideration of the [place] 01/03/2025 Case reviewed with neurology and discussed still unclear diagnosis and patient's mental status remains severely impaired. Discussion held regarding possibility of transferred to [facility] later neurologist felt we should wait and see if amyloid studies come back positive and healthcare proxy Sai did have a discussion with Dr. López regarding above possibility. Consideration could be given to attempt at PET scan amyloid PET scan at some point neurologist felt only FM Jonel blood work was positive. Discussed option of Namenda will start tomorrow monitor for any adverse effects hopefully may help with cognition and behavioral issues 01/04/2025 Start Namenda 5 mg daily referral process started regarding [facility] case reviewed with neurology and with healthcare proxy. Continue Depakote olanz patient has apine seems somewhat helpful in decreasing agitation irritability and anxiety. Still pending results from amyloid Regarding hypertension in better control also being followed by hospitalist service 01/05/25 Patient's case reviewed with treatment team reviewed with healthcare proxy. Patient has been referred to [facility] they only have emergency meds for surgery extensive material sent case distress discussed with transfer team Deborah oneal are still pending results from amyloid and tau testing patient has been more lethargic remains on olanzapine b.i.d. and Depakote 500 b.i.d.. Will lower morning olanzapine 01/08/2025 [facility] again denies transfer stating they will only take acute surgical patient's to neurology or acute stroke. Case reviewed with Dr. López regularly from Neurology. Seems to be getting more confused increase Namenda to 5 b.i.d. lower Depakote 250 b.i.d. as tolerated pending Alzheimer screening results 01/09/25 Referrals to [facility] but refusing transfer. pt neg blood work for tau and amyloid. Pt on dec depakote in case worsening confusion. Pt unabe to participate in linear planning except for shot periods. Episodes of severe anxiety. 01/10/2025 Case reviewed with healthcare proxy as a neurologist in [place] he would like to speak to patient does have power of [place] attorney who is not patient's brother. Patient has been accepted in tense living situation no focal findings no seizure activity blood pressure in better control generally patient maintaining nutrition has been getting somewhat more anxious and dysphoric not understanding why he is here 01/11/2025 Issues clarified with hospital [place] attorney regarding assisted living working with patient's [id number] and will also continue working with John patient's brother and healthcare proxy. Patient increasingly irritable distraught increase Namenda as tolerated Depakote has been lowered alprazolam 0.125 mg PO TID 01/12/2025 Patient on water restriction with hyponatremia question Depakote now at250 t.i.d. olanzapine b.i.d. alprazolam 0.125 mg t.i.d. p.r.n.. Recheck sodium electrolytes in the morning will recheck EEG on 922 recommended by outside Neurology by healthcare proxy however unable to do serial EEG for 3-7 days at this point. Continue Namenda discharge plan hopefully to the [facility] Reason for continued inpatient stay Substantial Risk for: inability to function, rapid decompensation and med/psych decompensation Time Spent With Patient Time: Total time managing care of this patient today ____ minutes.
[2025-01-12 13:18] LABS: Appearance Urine Clear; Glucose Urine UA Negative (Negative); PH 7.0 (5.0-9.0); Specific Gravity - Urine 1.015 (1.005-1.025); UMIC TRIGGER UA YES
[2025-01-12 13:35] LABS: MANUAL DIFF FLAG NO
[2025-01-12 13:38] LABS: Hematocrit 34.9 % (42.0-52.0); Hemoglobin 12.4 g/dl (14.0-18.0); Imm Gran Abs Auto 0.08 X10*3/uL (0.00-0.03); Imm Gran Pct Auto 0.9 % (0.0-0.4); Lymphocytes Absolute Auto 2.2 X10*3/uL (1.2-4.9); Mean Corpuscular HGB Conc 35.5 g/dl (31.0-36.0); Mean Corpuscular Hemoglobin 34.7 pg (27.0-33.0); Mean Corpuscular Volume 97.8 fL (80.0-98.0); NRBC Abs Auto 0.000 X10*3/uL (0.0-0.012); NRBC Pct Auto 0.0 /100WBC (0.0-0.2); Platelet Count 210 X10*3/uL (160-400); Red Blood Count 3.57 X10*6/uL (4.60-5.80); White Blood Count 8.7 X10*3/uL (4.8-10.8)
[2025-01-12 13:52] LABS: Anion Gap 7 (12-20); Blood Urea Nitrogen 24 mg/dL (9-16); Calcium 9.3 mg/dL (8.4-10.2); Carbon Dioxide 30 mmol/L (22-29); Chloride 100 mmol/L (96-108); Creatinine Clr Calc Pharmacy 70.6; Estimated Glomerular Filt Rate > 60; Potassium 4.4 mmol/L (3.3-5.1); Sodium 133 mmol/L (135-145)
[2025-01-12 14:26] VITALS: BP 124/65; PULSE 70
[2025-01-12 20:00] VITALS: BP 165/81; PULSE 73; RESP 16; TEMP 36.5; O2SAT 98
[2025-01-12] MEDS: Aspirin Enteric Coated 81 MG TABLET.DR PO (20:43)
[2025-01-13] VITALS (7 sets, daily range): BP systolic 113–135; BP diastolic 57–77; PULSE 72–78; RESP 16; TEMP 35.7–36.9; O2SAT 93–95
[2025-01-13 08:20] LABS: Anion Gap 9 (12-20); Blood Urea Nitrogen 22 mg/dL (9-16); Calcium 9.0 mg/dL (8.4-10.2); Carbon Dioxide 25 mmol/L (22-29); Chloride 102 mmol/L (96-108); Creatinine Clr Calc Pharmacy 74.1; Estimated Glomerular Filt Rate > 60; Potassium 3.8 mmol/L (3.3-5.1); Sodium 132 mmol/L (135-145)
[2025-01-13] MEDS: Divalproex Sodium Sprinkles 125 MG CAP.DR.SPR 250 MG PO ×3 (08:28→20:31)
--- NOTE | 2025-01-13 10:16 | P.PNPSI_ITS ---
Subjective Subjective Date of Service: 01/13/25 Reason For Visit: confusion agitation Interim History: Patient seen psychiatric follow-up. Patient remains intrusive. Asking this brief writer for a paper bag and asking to get Dr. Verdin's work schedule to know exactcly when he will be seeing him. He asks for discharge. He remains anxious and disorganized. Unable to complete a full sentence without going off topic. Patient mildly hyponatremic Review of Systems Review of Systems Limited by cognition, denies any pain or trouble breathing. Yes all other systems are reviewed and are negative and Unobtainable due to mental status Mental Status Exam Mental Status Exam Narrative: Pt is anxious in appearance ambulating without difficulty. Patient focused on being told that he has a large sum of money, then has something of a flight of ideas tangential not logical or linear. When asked as specific question asking for information has a very hard time just answering the question Mood anxious depressed somewhat agitated preoccupied Easily distracted poor short-term memory no gross suicidal or homicidal impulsivity or thoughts expressed marked lack of insight he does get across that he has been feeling trapped unclear if able to take in information regarding discharge planning Diagnostics Vital Signs (24Hr): Vital Signs - 24 hr 01/12/25 14:26 01/12/25 20:00 01/13/25 08:00 Temperature 97.7 F 98.4 F Pulse Rate 70 73 72 Respiratory Rate 16 16 Blood Pressure 124/65 165/81 H 113/57 L Pulse Oximetry 98 95 Oxygen Delivery Method Room Air Room Air 01/13/25 08:29 01/13/25 08:33 Temperature Pulse Rate Respiratory Rate Blood Pressure 113/57 L 113/57 L Pulse Oximetry Oxygen Delivery Method BMI result Body Mass Index 21.4 Labs 01/12/25 13:18 01/13/25 07:32 Labs: Laboratory Results - last 48 hr 12/19/24 01/12/25 01/12/25 14:48 13:04 13:18 WBC 8.7 RBC 3.57 L Hgb 12.4 L Hct 34.9 L MCV 97.8 MCH 34.7 H MCHC 35.5 RDW 12.0 Plt Count 210 MPV 9.9 Immature Gran % (Auto) 0.9 H Neut % (Auto) 62.7 Lymph % (Auto) 25.5 [place] % (Auto) 9.3 Eos % (Auto) 0.9 Baso % (Auto) 0.7 Lymph # (Auto) 2.2 [place] # (Auto) 0.8 Eos # (Auto) 0.1 Baso # (Auto) 0.1 Abs Immat Gran (auto) 0.08 H Absolute Neuts (auto) 5.4 Absolute Nucleated RBC 0.000 Nucleated RBC % (auto) 0.0 Sodium 133 L Potassium 4.4 Chloride 100 Carbon Dioxide 30 H Anion Gap 7 L BUN 24 H Creatinine 0.83 Estim Creat Clear Calc 70.6 Estimated GFR > 60 Random Glucose 119 H Calcium 9.3 Urine Color Yellow Urine Appearance Clear Urine pH 7.0 Ur Specific [place] 1.015 Urine Protein Negative Urine Glucose (UA) Negative Urine Ketones Negative Urine Blood Trace H Urine Nitrite Negative Ur Leukocyte Esterase Trace H Urine RBC 11-20 H Urine WBC 0-5 Ur Squamous Epith Cells 0-2 Urine Bacteria None Seen Hyaline Casts 0-2 CSF Total Protein PEP 30 CSF Prealbumin 4.7 CSF Albumin 57.7 CSF Umofr-0-Gwwrpjdd 5.2 CSF Kijkd-7-Jqayvdmu 8.3 CSF Beta Globulin 16.7 CSF Gamma Globulin 7.4 CSF PEP Interpret SEE NOTE 01/13/25 07:32 WBC RBC Hgb Hct MCV MCH MCHC RDW Plt Count MPV Immature Gran % (Auto) Neut % (Auto) Lymph % (Auto) [place] % (Auto) Eos % (Auto) Baso % (Auto) Lymph # (Auto) [place] # (Auto) Eos # (Auto) Baso # (Auto) Abs Immat Gran (auto) Absolute Neuts (auto) Absolute Nucleated RBC Nucleated RBC % (auto) Sodium 132 L Potassium 3.8 Chloride 102 Carbon Dioxide 25 Anion Gap 9 L BUN 22 H Creatinine 0.79 Estim Creat Clear Calc 74.1 Estimated GFR > 60 Random Glucose 124 H Calcium 9.0 Urine Color Urine Appearance Urine pH Ur Specific [place] Urine Protein Urine Glucose (UA) Urine Ketones Urine Blood Urine Nitrite Ur Leukocyte Esterase Urine RBC Urine WBC Ur Squamous Epith Cells Urine Bacteria Hyaline Casts CSF Total Protein PEP CSF Prealbumin CSF Albumin CSF Hnxbo-1-Mlihpatp CSF Sivyj-6-Gtnddaeo CSF Beta Globulin CSF Gamma Globulin CSF PEP Interpret Imaging Radiology Impressions: ITS Impressions Brain MRI 12/15/24 09:35 IMPRESSION: Acute nonhemorrhagic ischemia involving the right precentral gyrus and left middle frontal gyrus concerning for embolic etiology. Extensive white matter disease likely related to small vessel occlusive disease. 5 mm nodular lesion, frontal horn right lateral ventricle. Malignancy cannot be excluded. Recommend IV contrast enhanced MRI brain. Global cerebral atrophy. Electronically signed by: Vincent Pandya MD 12/15/2024 10:21 AM EDT RP Lumbar Puncture Fluoroscopy 12/19/24 10:45 IMPRESSION: Successful fluoroscopic guided L3-4 interlaminar lumbar puncture. Electronically signed by: Kevin Barahona MD 12/19/2024 12:36 PM EDT RP Head/Neck CTA 12/21/24 10:29 IMPRESSION: No main cerebral artery occlusion or embolus. Irregular calcified plaque at the proximal right ICA at representing less than 50% stenosis. No dissection. Probable 2 mm aneurysm, right A2 segment. This critical test result is communicated to: Electronically signed by: Vincent Pandya MD 12/21/2024 12:02 PM EDT RP Chest X-Ray 01/12/25 11:15 IMPRESSION: No acute disease. Hiatal hernia involving stomach fundus. Electronically signed by: Mario Gutiérrez MD 01/12/2025 11:28 AM EDT RP Medications Medications Current Medications Acetaminophen (Acetaminophen 325 Mg Tablet) 650 mg PO Q6H PRN PRN Reason: Headache/Pain, Scale 1-10 Al Hydroxide/Mg Hydroxide (Magnesium Hydrox/Alum Hydrox 30 Ml Oral.Susp) 30 ml PO Q6H PRN PRN Reason: Heartburn/Nausea Alprazolam (Alprazolam 0.25 Mg Tablet) 0.125 mg PO TID PRN PRN Reason: anxietyrestlessness Last Admin: 01/12/25 14:40 Dose: 0.125 mg Amlodipine Besylate (Amlodipine Besylate 10 Mg Tablet) 10 mg PO BEDTIME OTILIA; Protocol Last Admin: 01/12/25 20:44 Dose: 10 mg Aspirin (Aspirin Enteric Coated 81 Mg Tablet.Dr) 81 mg PO BEDTIME OTILIA Last Admin: 01/12/25 20:43 Dose: 81 mg Atorvastatin Calcium (Atorvastatin Calcium 40 Mg Tablet) 40 mg PO BEDTIME OTILIA Last Admin: 01/12/25 20:44 Dose: 40 mg Clonidine HCl (Clonidine Hcl 0.1 Mg Tablet) 0.1 mg PO BID PRN; Protocol PRN Reason: severe anxiety Last Admin: 12/18/24 20:33 Dose: 0.1 mg Divalproex Sodium (Divalproex Sodium Sprinkles 125 Mg Cap) 250 mg PO TID OTILIA Last Admin: 01/13/25 08:28 Dose: 250 mg Finasteride (Finasteride 5 Mg Tablet) 5 mg PO DAILY OTILIA Last Admin: 01/13/25 08:28 Dose: 5 mg Hydralazine HCl (Hydralazine Hcl 25 Mg Tablet) 25 mg PO TID OTILIA; Protocol Last Admin: 01/13/25 08:33 Dose: 25 mg Lactase (Lactase Tablet) 1 tab PO Q4H PRN PRN Reason: with dairy Last Admin: 12/26/24 15:00 Dose: 1 tab Losartan Potassium (Losartan Potassium 50 Mg Tablet) 100 mg PO DAILY OTILIA; Protocol Last Admin: 01/13/25 08:29 Dose: 100 mg Magnesium Hydroxide (Milk Of Magnesia 30 Ml Oral.Susp) 30 ml PO DAILY PRN PRN Reason: Constipation Last Admin: 12/19/24 21:38 Dose: 30 ml Melatonin (Melatonin 3 Mg Tablet) 6 mg PO BEDTIME OTILIA Last Admin: 01/12/25 20:44 Dose: 6 mg Memantine (Memantine Hcl 5 Mg Tablet) 5 mg PO BID PENDING SALE TO [facility] Last Admin: 01/13/25 08:32 Dose: 5 mg Olanzapine (Olanzapine 2.5 Mg Tablet) 2.5 mg PO Q4H PRN PRN Reason: anxiety/restlessness Last Admin: 01/03/25 15:14 Dose: 2.5 mg Olanzapine (Olanzapine 5 Mg Tablet) 5 mg PO BEDTIME OTILIA Last Admin: 01/12/25 22:17 Dose: 5 mg Olanzapine (Olanzapine 2.5 Mg Tablet) 2.5 mg PO DAILY PENDING SALE TO [facility] Last Admin: 01/13/25 09:11 Dose: 2.5 mg Omeprazole (Omeprazole 20 Mg Capsule.) 20 mg PO BEDTIME OTILIA Last Admin: 01/12/25 20:43 Dose: 20 mg Tamsulosin HCl (Tamsulosin Hcl 0.4 Mg Capsule) 0.8 mg PO BEDTIME OTILIA Last Admin: 01/12/25 20:43 Dose: 0.8 mg Tolterodine Tartrate (Tolterodine Tartrate La 4 Mg Cap.Er.24h) 4 mg PO DAILY PENDING SALE TO [facility] Last Admin: 01/13/25 08:30 Dose: 4 mg Valacyclovir HCl (Valacyclovir Hcl 500 Mg Tablet) 500 mg PO DAILY PENDING SALE TO [facility] Last Admin: 01/13/25 08:32 Dose: 500 mg Allergies Allergies Allergy/AdvReac Type Severity Reaction Status Date / Time No Known Allergies Allergy Verified 12/16/24 19:54 Assessment & Plan Assessment & Plan (1) Major 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, with agitation: Status: Acute Code(s): F02.811 - Dementia in other diseases classified elsewhere, unspecified severity, with agitation (2) Encephalopathy: Qualifiers: Encephalopathy type: unspecified encephalopathy Qualified Code(s): G 93.40 - Encephalopathy, unspecified Status: Acute Code(s): G93.40 - Encephalopathy, unspecified Assessment and Plan: 74 years old man with acute change in mental status with psychiatric symptoms of paranoia and agitation and confusion with forgetfulness. This seems to be a relatively recent and according to him he was fine couple of months ago. This would suggest a rapidly progressive process. Differential diagnosis would include atypical encephalitis from an atypical infection, or an inflammatory process including autoimmune condition. It would also include possibility of Crutzfeld Lobito disease. His MRI of brain did reveal subtle abnormalities suggesting any of these possibilities. I recommend sending serum test for Lyme, syphilis, HIV, and blood test for sed rate. If serum or blood tests do not provide any lead, a lumbar puncture is needed to do testing on CSF. EEG is also recommended, which in some cases can also help. (3) Manic behavior: Status: Acute Code(s): F30.10 - Manic episode without psychotic symptoms, unspecified (4) Hypertension: Qualifiers: Hypertension type: primary hypertension Qualified Code(s): I10 - Essential (primary) hypertension Status: Acute Code(s): I10 - Essential (primary) hypertension (5) OCD (obsessive compulsive disorder): Status: Acute Code(s): F42.9 - Obsessive-compulsive disorder, unspecified Plan 74M PMH mood disorder, HTN, BPH, GERD, HSV, mood disorder presented on section 12 with evelyn/paranoia, found to be hypoxic and hypertensive initially admitted to hospital. Now admitted to [facility] for further care and stabilization for paranoia and agitation. Has been seen by neurology, Results of LP pending. Mood disorder/Paranoia Treatment per psych team Hypertension/HLD Continues on Losartan 100 mg daily, Amlodipine 10 mgs and Hydralazine 25 mgs TID Will change amlodipine to HS dosing. Low Salt diet. Patient asking for salt for his food. Avoid AV reji blockers including propranolol Continue Atorvastatin-LIpid panel WNL. Encephalopathy with abnormal MRI Follow recommendations from Neurology EEG testing negative for CJD or epileptic tendencies. ESR normal HIV, RPR, Lyme testing all negative Results of LP pending History of Bradycardia with normal KS interval Patient not on any AV reji blockers TSH WNL Will need Holter monitor outpatient and cardiology follow up BPH Continue finasteride and tamsulosin On Detrol GERD Omeprazole Avoid food triggers HSV Valacyclovir On Descovy for prep Thank you for allowing me to participate in the care of this patient. Will follow as needed. Please reconsult of any acute concerns or issues arise Assessment and Plan Patient with ongoing obsessional thoughts intense pressured speech racing thoughts. Mirtazapine 7.5 mg at bedtime see if help with insomnia and obsessional anxiety continue olanzapine 5 mg at bedtime with a 2.5 mg prn targeting agitation obsessional thoughts anxiety. Still do not have results from lumbar puncture which may suggest other causes besides vascular brain changes the patient's symptoms 12/25/24: Increase Depakote to 375 mg BID. 12/26: aware his mood is labile, agrees to increase VPA dosing to 500 BID. hyperverbal, anxious. 12/27/2024 Patient continues hyperverbal limited reasoning and executive function hard for him to stay on topic. Check Depakote level [place]fel[place] pending for tomorrow then should have results regarding lumbar puncture. Increase a.m. olanzapine to 5 mg monitor gait 12/28/2024 CJD negative some improvement noted with Depakote and olanzapine less pressured improved anxiety somewhat better able to engage in linear conversation eating and drinking okay flesh pressure remains intermittently elevated will again ask hospitalist service to look at this has been difficult to control Further labs from lumbar puncture pending d/c planning 12/30/2024: No changes in current management plan and note some test results still pending from lumbar puncture 12/31: no changes Reason for continued inpatient stay Substantial Risk for rapid decompensation 01/01/25 Pt with some inc ability to think reason case reviewed with neurology no exact dx vascular plus degenerative? consider namenda 01/02/2025 Patient is still pending some labs neurology does not feel this is infectious or paraneoplastic. Looking at discharge to protected environment Case discussed with brother extensively reviewed option of Namenda mention consideration of the [place] 01/03/2025 Case reviewed with neurology and discussed still unclear diagnosis and patient's mental status remains severely impaired. Discussion held regarding possibility of transferred to [facility] later neurologist felt we should wait and see if amyloid studies come back positive and healthcare proxy Sai did have a discussion with Dr. López regarding above possibility. Consideration could be given to attempt at PET scan amyloid PET scan at some point neurologist felt only Jonel blood work was positive. Discussed option of Namenda will start tomorrow monitor for any adverse effects hopefully may help with cognition and behavioral issues 01/04/2025 Start Namenda 5 mg daily referral process started regarding [facility] [place] reviewed with neurology and with healthcare proxy. Continue Depakote olanz patient has apine seems somewhat helpful in decreasing agitation irritability and anxiety. Still pending results from amyloid Regarding hypertension in better control also being followed by hospitalist service 01/05/25 Patient's case reviewed with treatment team reviewed with healthcare proxy. Patient has been referred to [facility] they only have emergency meds for surgery extensive material sent case distress discussed with transfer team Deborah oneal are still pending results from amyloid and tau testing patient has been more lethargic remains on olanzapine b.i.d. and Depakote 500 b.i.d.. Will lower morning olanzapine 01/08/2025 [facility] [place] transfer stating they will only take acute surgical patient's to neurology or acute stroke. Case reviewed with Dr. López regularly from Neurology. Seems to be getting more confused increase Namenda to 5 b.i.d. lower Depakote 250 b.i.d. as tolerated pending Alzheimer screening results 01/09/25 Referrals to [facility] but refusing transfer. pt neg blood work for tau and amyloid. Pt on dec depakote in case worsening confusion. Pt unabe to participate in linear planning except for shot periods. Episodes of severe anxiety. 01/10/2025 Case reviewed with healthcare proxy as a neurologist in [place] he would like to speak to patient does have power of litigation attorney associate who is not patient's brother. Patient has been accepted in tense living situation no focal findings no seizure activity blood pressure in better control generally patient maintaining nutrition has been getting somewhat more anxious and dysphoric not understanding why he is here 01/11/2025 Issues clarified with hospital litigation attorney associate regarding assisted living working with patient's [id number] and will also continue working with John patient's brother and healthcare proxy. Patient increasingly irritable distraught increase Namenda as tolerated Depakote has been lowered alprazolam 0.125 mg PO TID 01/12/2025 Patient on water restriction with hyponatremia question Depakote now at250 t.i.d. olanzapine b.i.d. alprazolam 0.125 mg t.i.d. p.r.n.. Recheck sodium electrolytes in the morning will recheck EEG on 922 recommended by outside Neurology by healthcare proxy however unable to do serial EEG for 3-7 days at this point. Continue Namenda discharge plan hopefully to the [facility] 01/13: Continue current management and treatment plan. Reason for continued inpatient stay Substantial Risk for: inability to function and rapid decompensation Time Spent With Patient Time: Total time managing care of this patient today ____ minutes.
[2025-01-13] MEDS: Aspirin Enteric Coated 81 MG TABLET.DR PO (20:31)
[2025-01-14] VITALS (7 sets, daily range): BP systolic 107–138; BP diastolic 63–72; PULSE 72–79; RESP 15–18; TEMP 36.6–36.8; O2SAT 92–96; BMI 21.5
[2025-01-14] MEDS: Divalproex Sodium Sprinkles 125 MG CAP.DR.SPR 250 MG PO ×3 (08:09→19:44)
--- NOTE | 2025-01-14 15:44 | HO.PSYCHPN ---
Subjective Subjective Date of Service: 01/14/25 Reason For Visit: confusion agitation Interim History: Patient seen psychiatric follow-up. Patient remains confused. Word finding difficulties. Disorganized thought process. Unable to cohesively speak a full sentence without losing train of thought. Word salad. He remains anxious. Patient mildly hyponatremic. He got anxious when he started saying something about his brother being an inventor. He got anxious I screwed up. I shouldn't have said anything and shut down. Review of Systems Review of Systems Limited by cognition, denies any pain or trouble breathing. Yes all other systems are reviewed and are negative and Unobtainable due to mental status Mental Status Exam Mental Status Exam Narrative: Pt is anxious in appearance ambulating without difficulty. Patient focused on being told that he has a large sum of money, then has something of a flight of ideas tangential not logical or linear. When asked as specific question asking for information has a very hard time just answering the question Mood anxious depressed somewhat agitated preoccupied Easily distracted poor short-term memory no gross suicidal or homicidal impulsivity or thoughts expressed marked lack of insight he does get across that he has been feeling trapped unclear if able to take in information regarding discharge planning Diagnostics Vital Signs (24Hr): Vital Signs - 24 hr 01/13/25 20:00 01/13/25 20:30 01/13/25 20:31 Temperature 96.3 F L Pulse Rate 78 Respiratory Rate 16 Blood Pressure 134/74 134/74 134/74 Pulse Oximetry 93 Oxygen Delivery Method Room Air 01/14/25 07:55 01/14/25 08:09 01/14/25 08:10 Temperature 97.9 F Pulse Rate 72 Respiratory Rate 18 Blood Pressure 128/63 128/63 128/63 Pulse Oximetry 96 Oxygen Delivery Method Room Air 01/14/25 15:04 Temperature Pulse Rate Respiratory Rate Blood Pressure 107/67 Pulse Oximetry Oxygen Delivery Method BMI result Body Mass Index 21.4 Labs 01/12/25 13:18 01/13/25 07:32 Labs: Laboratory Results - last 48 hr 01/13/25 07:32 Sodium 132 L Potassium 3.8 Chloride 102 Carbon Dioxide 25 Anion Gap 9 L BUN 22 H Creatinine 0.79 Estim Creat Clear Calc 74.1 Estimated GFR > 60 Random Glucose 124 H Calcium 9.0 Imaging Radiology Impressions: ITS Impressions Brain MRI 12/15/24 09:35 IMPRESSION: Acute nonhemorrhagic ischemia involving the right precentral gyrus and left middle frontal gyrus concerning for embolic etiology. Extensive white matter disease likely related to small vessel occlusive disease. 5 mm nodular lesion, frontal horn right lateral ventricle. Malignancy cannot be excluded. Recommend IV contrast enhanced MRI brain. Global cerebral atrophy. Electronically signed by: Vincent Pandya MD 12/15/2024 10:21 AM EDT RP Lumbar Puncture Fluoroscopy 12/19/24 10:45 IMPRESSION: Successful fluoroscopic guided L3-4 interlaminar lumbar puncture. Electronically signed by: Kevin Barahona MD 12/19/2024 12:36 PM EDT RP Head/Neck CTA 12/21/24 10:29 IMPRESSION: No main cerebral artery occlusion or embolus. Irregular calcified plaque at the proximal right ICA at representing less than 50% stenosis. No dissection. Probable 2 mm aneurysm, right A2 segment. This critical test result is communicated to: Electronically signed by: Vincent Pandya MD 12/21/2024 12:02 PM EDT RP Chest X-Ray 01/12/25 11:15 IMPRESSION: No acute disease. Hiatal hernia involving stomach fundus. Electronically signed by: Mario Gutiérrez MD 01/12/2025 11:28 AM EDT RP Medications Medications Current Medications Acetaminophen (Acetaminophen 325 Mg Tablet) 650 mg PO Q6H PRN PRN Reason: Headache/Pain, Scale 1-10 Al Hydroxide/Mg Hydroxide (Magnesium Hydrox/Alum Hydrox 30 Ml Oral.Susp) 30 ml PO Q6H PRN PRN Reason: Heartburn/Nausea Alprazolam (Alprazolam 0.25 Mg Tablet) 0.125 mg PO TID PRN PRN Reason: Anxiety Amlodipine Besylate (Amlodipine Besylate 10 Mg Tablet) 10 mg PO BEDTIME OTILIA; Protocol Last Admin: 01/13/25 20:31 Dose: 10 mg Aspirin (Aspirin Enteric Coated 81 Mg Tablet.Dr) 81 mg PO BEDTIME OTILIA Last Admin: 01/13/25 20:31 Dose: 81 mg Atorvastatin Calcium (Atorvastatin Calcium 40 Mg Tablet) 40 mg PO BEDTIME OTILIA Last Admin: 01/13/25 20:30 Dose: 40 mg Clonidine HCl (Clonidine Hcl 0.1 Mg Tablet) 0.1 mg PO BID PRN; Protocol PRN Reason: severe anxiety Last Admin: 12/18/24 20:33 Dose: 0.1 mg Divalproex Sodium (Divalproex Sodium Sprinkles 125 Mg Cap.) 250 mg PO TID OITLIA Last Admin: 01/14/25 15:04 Dose: 250 mg Finasteride (Finasteride 5 Mg Tablet) 5 mg PO DAILY OTILIA Last Admin: 01/14/25 08:11 Dose: 5 mg Hydralazine HCl (Hydralazine Hcl 25 Mg Tablet) 25 mg PO TID OTILIA; Protocol Last Admin: 01/14/25 15:04 Dose: 25 mg Lactase (Lactase Tablet) 1 tab PO Q4H PRN PRN Reason: with dairy Last Admin: 12/26/24 15:00 Dose: 1 tab Losartan Potassium (Losartan Potassium 50 Mg Tablet) 100 mg PO DAILY OTILIA; Protocol Last Admin: 01/14/25 08:09 Dose: 100 mg Magnesium Hydroxide (Milk Of Magnesia 30 Ml Oral.Susp) 30 ml PO DAILY PRN PRN Reason: Constipation Last Admin: 12/19/24 21:38 Dose: 30 ml Melatonin (Melatonin 3 Mg Tablet) 6 mg PO BEDTIME OTILIA Last Admin: 01/13/25 20:31 Dose: 6 mg Memantine (Memantine Hcl 5 Mg Tablet) 5 mg PO BID [facility] Last Admin: 01/14/25 08:11 Dose: 5 mg Olanzapine (Olanzapine 2.5 Mg Tablet) 2.5 mg PO Q4H PRN PRN Reason: anxiety/restlessness Last Admin: 01/03/25 15:14 Dose: 2.5 mg Olanzapine (Olanzapine 5 Mg Tablet) 5 mg PO BEDTIME OTILIA Last Admin: 01/13/25 20:31 Dose: 5 mg Olanzapine (Olanzapine 2.5 Mg Tablet) 2.5 mg PO DAILY [facility] Last Admin: 01/14/25 08:10 Dose: 2.5 mg Omeprazole (Omeprazole 20 Mg Capsule.) 20 mg PO BEDTIME OTILIA Last Admin: 01/13/25 20:30 Dose: 20 mg Tamsulosin HCl (Tamsulosin Hcl 0.4 Mg Capsule) 0.8 mg PO BEDTIME OTILIA Last Admin: 01/13/25 20:30 Dose: 0.8 mg Tolterodine Tartrate (Tolterodine Tartrate La 4 Mg Cap.Er.24h) 4 mg PO DAILY [facility] Last Admin: 01/14/25 08:09 Dose: 4 mg Valacyclovir HCl (Valacyclovir Hcl 500 Mg Tablet) 500 mg PO DAILY [facility] Last Admin: 01/14/25 08:09 Dose: 500 mg Allergies Allergies Allergy/AdvReac Type Severity Reaction Status Date / Time No Known Allergies Allergy Verified 12/16/24 19:54 Assessment & Plan Assessment & Plan (1) Major 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, with agitation: Status: Acute Code(s): F02.811 - Dementia in other diseases classified elsewhere, unspecified severity, with agitation (2) Encephalopathy: Qualifiers: Encephalopathy type: unspecified encephalopathy Qualified Code(s): G93.40 - Encephalopathy, unspecified Status: Acute Code(s): G93.40 - Encephalopathy, unspecified Assessment and Plan: 74 years old man with acute change in mental status with psychiatric symptoms of paranoia and agitation and confusion with forgetfulness. This seems to be a relatively recent and according to him he was fine couple of months ago. This would suggest a rapidly progressive process. Differential diagnosis would include atypical encephalitis from an atypical infection, or an inflammatory process including autoimmune condition. It would also include possibility of Crutzfeld Lobito disease. His MRI of brain did reveal subtle abnormalities suggesting any of these possibilities. I recommend sending serum test for Lyme, syphilis, HIV, and blood test for sed rate. If serum or blood tests do not provide any lead, a lumbar puncture is needed to do testing on CSF. EEG is also recommended, which in some cases can also help. (3) Manic behavior: Status: Acute Code(s): F30.10 - Manic episode without psychotic symptoms, unspecified (4) Hypertension: Qualifiers: Hypertension type: primary hypertension Qualified Code(s): I10 - Essential (primary) hypertension Status: Acute Code(s): I10 - Essential (primary) hypertension (5) OCD (obsessive compulsive disorder): Status: Acute Code(s): F42.9 - Obsessive-compulsive disorder, unspecified Plan 74M PMH mood disorder, HTN, BPH, GERD, HSV, mood disorder presented on section 12 with evelyn/paranoia, found to be hypoxic and hypertensive initially admitted to hospital. Now admitted to [facility] for further care and stabilization for paranoia and agitation. Has been seen by neurology, Results of LP pending. Mood disorder/Paranoia Treatment per psych team Hypertension/HLD Continues on Losartan 100 mg daily, Amlodipine 10 mgs and Hydralazine 25 mgs TID Will change amlodipine to HS dosing. Low Salt diet. Patient asking for salt for his food. Avoid AV reji blockers including propranolol Continue Atorvastatin-LIpid panel WNL. Encephalopathy with abnormal MRI Follow recommendations from Neurology EEG testing negative for CJD or epileptic tendencies. ESR normal HIV, RPR, Lyme testing all negative Results of LP pending History of Bradycardia with normal TN interval Patient not on any AV reji blockers TSH WNL Will need Holter monitor outpatient and cardiology follow up BPH Continue finasteride and tamsulosin On Detrol GERD Omeprazole Avoid food triggers HSV Valacyclovir On Descovy for prep Thank you for allowing me to participate in the care of this patient. Will follow as needed. Please reconsult of any acute concerns or issues arise Assessment and Plan Patient with ongoing obsessional thoughts intense pressured speech racing thoughts. Mirtazapine 7.5 mg at bedtime see if help with insomnia and obsessional anxiety continue olanzapine 5 mg at bedtime with a 2.5 mg prn targeting agitation obsessional thoughts anxiety. Still do not have results from lumbar puncture which may suggest other causes besides vascular brain changes the patient's symptoms 12/25/24: Increase Depakote to 375 mg BID. 12/26: aware his mood is labile, agrees to increase VPA dosing to 500 BID. hyperverbal, anxious. 12/27/2024 Patient continues hyperverbal limited reasoning and executive function hard for him to stay on topic. Check Depakote level Creutzfeldt-Oseas pending for tomorrow then should have results regarding lumbar puncture. Increase a.m. olanzapine to 5 mg monitor gait 12/28/2024 CJD negative some improvement noted with Depakote and olanzapine less pressured improved anxiety somewhat better able to engage in linear conversation eating and drinking okay flesh pressure remains intermittently elevated will again ask hospitalist service to look at this has been difficult to control Further labs from lumbar puncture pending d/c planning 12/30/2024: No changes in current management plan and note some test results still pending from lumbar puncture 12/31: no changes Reason for continued inpatient stay Substantial Risk for rapid decompensation 01/01/25 Pt with some inc ability to think reason case reviewed with neurology no exact dx vascular plus degenerative? consider namenda 01/02/2025 Patient is still pending some labs neurology does not feel this is infectious or paraneoplastic. Looking at discharge to protected environment Case discussed with brother extensively reviewed option of Namenda mention consideration of the [place] 01/03/2025 Case reviewed with neurology and discussed still unclear diagnosis and patient's mental status remains severely impaired. Discussion held regarding possibility of transferred to [facility] later neurologist felt we should wait and see if amyloid studies come back positive and healthcare proxy Sai did have a discussion with Dr. López regarding above possibility. Consideration could be given to attempt at PET scan amyloid PET scan at some point neurologist felt only Jonel blood work was positive. Discussed option of Namenda will start tomorrow monitor for any adverse effects hopefully may help with cognition and behavioral issues 01/04/2025 Start Namenda 5 mg daily referral process started [place] [facility] [place] reviewed with neurology and with healthcare proxy. Continue Depakote olanz patient has apine seems somewhat helpful in decreasing agitation irritability and anxiety. Still pending results from amyloid Regarding hypertension in better control also being followed by hospitalist service 01/05/25 Patient's case reviewed with treatment team reviewed with healthcare proxy. Patient has been referred to [facility] they only have emergency meds for surgery extensive material sent case distress discussed with transfer team Deborah oneal are still pending results from amyloid and tau testing patient has been more lethargic remains on olanzapine b.i.d. and Depakote 500 b.i.d.. Will lower morning olanzapine 01/08/2025 [facility] [place] stating they will only take acute surgical patient's to neurology or acute stroke. Case reviewed with Dr. López regularly from Neurology. Seems to be getting more confused increase Namenda to 5 b.i.d. lower Depakote 250 b.i.d. as tolerated pending Alzheimer screening results 01/09/25 Referrals to [facility] but refusing transfer. pt neg blood work for tau and amyloid. Pt on dec depakote in case worsening confusion. Pt unabe to participate in linear planning except for shot periods. Episodes of severe anxiety. 01/10/2025 Case reviewed with healthcare proxy as a neurologist in [place] he would like to speak to patient does have power of attorney recruiter who is not patient's brother. Patient has been accepted in tense living situation no focal findings no seizure activity blood pressure in better control generally patient maintaining nutrition has been getting somewhat more anxious and dysphoric not understanding why he is here 01/11/2025 Issues clarified with hospital attorney recruiter regarding assisted living working with patient's [id number] and will also continue working with John patient's brother and healthcare proxy. Patient increasingly irritable distraught increase Namenda as tolerated Depakote has been lowered alprazolam 0.125 mg PO TID 01/12/2025 Patient on water restriction with hyponatremia question Depakote now at250 t.i.d. olanzapine b.i.d. alprazolam 0.125 mg t.i.d. p.r.n.. Recheck sodium electrolytes in the morning will recheck EEG on 922 recommended by outside Neurology by healthcare proxy however unable to do serial EEG for 3-7 days at this point. Continue Namenda discharge plan hopefully to the [facility] 01/13: Continue current management and treatment plan. 01/14: continue current management and treatment plan. Reason for continued inpatient stay Substantial Risk for: inability to function and rapid decompensation Time Spent With Patient Time: Total time managing care of this patient today ____ minutes.
[2025-01-14] MEDS: Aspirin Enteric Coated 81 MG TABLET.DR PO (19:44)
[2025-01-15 08:20] VITALS: BP 108/58; PULSE 68; RESP 16; TEMP 36.8; O2SAT 95
[2025-01-15] MEDS: Divalproex Sodium Sprinkles 125 MG CAP.DR.SPR 250 MG PO ×3 (09:02→20:23)
[2025-01-15 10:34] LABS: Specific Gravity - Urine 1.015 (1.005-1.025)
--- NOTE | 2025-01-15 12:15 | PC.NURSE ---
while sitting in the milieu he was speaking incessantly toward another patient who put her hands over her ears, he was addressed by this advertising writer that she was showing she didn't want to listen and his response was I don't care because she is going to listen anyway.
--- NOTE | 2025-01-15 13:18 | P.CONNP_ITS ---
History of Present Illness Reason for Consult Consult date: 01/15/25 Chief Complaint Chief complaint: confusion agitation History of Present Illness Narrative: 74 y/o male with HTN, BPH, HIV, multifactorial dementia here in [facility] with manic behavior, increased paranoia and agitation. CT of head with abnormal lesion that could indicate malignancy. Nephrology consulted for intermittent hyponatremia patient's sodium level normal in early December, low 130s 01/12 and 01/13. Lowest serum sodium 127 in late November. Urine sodium 53. urine osm 425 in November. patient is nonsensical today when attempting to evaluation and ask ROS questions today. He does deny nausea and pain, and denies shortness of breath. I was otherwise unable to obtain ROS, as patient did not answer questions directly and was discussing unrelated concerns that were unrelated to his health and hospitalization. Review of Systems Review of Systems Yes Unobtainable due to mental condition and Unobtainable due to mental status Reports confusion Psychiatric: Reports confusion [facility] Past Medical History Medical History (Updated 01/15/25 @ 13:30 by Rosaline Alfaro DNP, MATERIAL CONTROL ANALYST-BC) OCD (obsessive compulsive disorder) HSV (herpes simplex virus) infection BPH (benign prostatic hyperplasia) HIV (human immunodeficiency virus infection) Sleep trouble Social History Social History Household Members: None Housing: Apartment Do you presently have visiting nurse or other home services: No Alcohol intake: never 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 Patient Tobacco Use Status: Never used Tobacco Currently Displaying Signs/Symptoms of Drug Intoxication Withdrawal: No Have you been hit, kicked, punched, or otherwise hurt by someone within the past year? If so, by whom?: No Do you feel safe in your current relationship?: No Current Relationship Is there a partner from a previous relationship who is making you feel unsafe now?: No Are you made to feel afraid or neglected: No Are you DNR?: No Advance Directives: No Advance Directives Information Provided: No Do you have thoughts of harming others: None Do you have a plan to hurt others: No Plan Recently lost weight without trying: No Eating poorly because of decreased appetite: No Nutrition Risks: No Nutritional Risk Poor oral hygiene: No service: No Travel History Ebola Risk: Travel/Contact With Anyone From Affected Area/s: No Has Patient Experienced Ebola Symptoms: No Meds Allergies Allergy/AdvReac Type Severity Reaction Status Date / Time No Known Allergies Allergy Verified 12/16/24 19:54 Active Medications: Current Medications Acetaminophen (Acetaminophen 325 Mg Tablet) 650 mg PO Q6H PRN PRN Reason: Headache/Pain, Scale 1-10 Al Hydroxide/Mg Hydroxide (Magnesium Hydrox/Alum Hydrox 30 Ml Oral.Susp) 30 ml PO Q6H PRN PRN Reason: Heartburn/Nausea Alprazolam (Alprazolam 0.25 Mg Tablet) 0.125 mg PO TID PRN PRN Reason: Anxiety Last Admin: 01/15/25 11:56 Dose: 0.125 mg Amlodipine Besylate (Amlodipine Besylate 10 Mg Tablet) 10 mg PO BEDTIME OTILIA; Protocol Last Admin: 01/14/25 19:44 Dose: 10 mg Aspirin (Aspirin Enteric Coated 81 Mg Tablet.) 81 mg PO BEDTIME OTILIA Last Admin: 01/14/25 19:44 Dose: 81 mg Atorvastatin Calcium (Atorvastatin Calcium 40 Mg Tablet) 40 mg PO BEDTIME OTILIA Last Admin: 01/14/25 19:43 Dose: 40 mg Clonidine HCl (Clonidine Hcl 0.1 Mg Tablet) 0.1 mg PO BID PRN; Protocol PRN Reason: severe anxiety Last Admin: 12/18/24 20:33 Dose: 0.1 mg Divalproex Sodium (Divalproex Sodium Sprinkles 125 Mg Cap.Spr) 250 mg PO TID OTILIA Last Admin: 01/15/25 09:02 Dose: 250 mg Finasteride (Finasteride 5 Mg Tablet) 5 mg PO DAILY OTILIA Last Admin: 01/15/25 09:03 Dose: 5 mg Hydralazine HCl (Hydralazine Hcl 25 Mg Tablet) 25 mg PO TID OTILIA; Protocol Last Admin: 01/15/25 09:03 Dose: Not Given Lactase (Lactase Tablet) 1 tab PO Q4H PRN PRN Reason: with dairy Last Admin: 12/26/24 15:00 Dose: 1 tab Losartan Potassium (Losartan Potassium 50 Mg Tablet) 100 mg PO DAILY OTILIA; Protocol Last Admin: 01/15/25 09:00 Dose: 100 mg Magnesium Hydroxide (Milk Of Magnesia 30 Ml Oral.Susp) 30 ml PO DAILY PRN PRN Reason: Constipation Last Admin: 12/19/24 21:38 Dose: 30 ml Melatonin (Melatonin 3 Mg Tablet) 6 mg PO BEDTIME [facility] Last Admin: 01/14/25 19:43 Dose: 6 mg Memantine (Memantine Hcl 5 Mg Tablet) 5 mg PO BID [facility] Last Admin: 01/15/25 09:01 Dose: 5 mg Olanzapine (Olanzapine 2.5 Mg Tablet) 2.5 mg PO Q4H PRN PRN Reason: anxiety/restlessness Last Admin: 01/03/25 15:14 Dose: 2.5 mg Olanzapine (Olanzapine 5 Mg Tablet) 5 mg PO BEDTIME [facility] Last Admin: 01/14/25 19:44 Dose: 5 mg Olanzapine (Olanzapine 2.5 Mg Tablet) 2.5 mg PO DAILY [facility] Last Admin: 01/15/25 09:03 Dose: 2.5 mg Omeprazole (Omeprazole 20 Mg Capsule.Dr) 20 mg PO BEDTIME [facility] Last Admin: 01/14/25 19:43 Dose: 20 mg Tamsulosin HCl (Tamsulosin Hcl 0.4 Mg Capsule) 0.8 mg PO BEDTIME [facility] Last Admin: 01/14/25 19:42 Dose: 0.8 mg Tolterodine Tartrate (Tolterodine Tartrate La 4 Mg Cap.Er.24h) 4 mg PO DAILY [facility] Last Admin: 01/15/25 09:00 Dose: 4 mg Valacyclovir HCl (Valacyclovir Hcl 500 Mg Tablet) 500 mg PO DAILY [facility] Last Admin: 01/15/25 09:02 Dose: 500 mg Home Medications ?Medication ?Instructions ?Recorded ?Confirmed ?Last Taken ?Type emtricitabine 200 mg-tenofovir 1 tab PO DAILY 12/05/24 12/12/24 Unknown History alafenamide fumarate 25 mg tablet (Descovy) finasteride 5 mg tablet 5 mg PO DAILY 12/05/2412/12 Unknown History losartan 100 mg tablet 100 mg PO DAILY 12/05/24 Unknown History omeprazole 20 mg capsule,delayed 20 mg PO BEDTIME 11/2412/12/24 Unknown History release tamsulosin 0.4 mg capsule 0.8 mg PO BEDTIME 12/05/24 0 12/12/24 Unknown History trospium 20 mg tablet 20 mg PO BID 12/05/24 Unknown History valacyclovir 500 mg tablet 500 mg PO DAILY 12/05/24 Unknown History vibegron 75 mg tablet (Gemtesa) 75 mg PO DAILY 5 12/12/24 Unknown History Physical Exam Vital Signs: Last Vital Signs Temp 98.2 F 01/15/25 08:20 Pulse 68 01/15/25 08:20 Resp 16 01/15/25 08:20 BP 108/58 L 01/15/25 08:20 Pulse Ox 95 01/15/25 08:20 O2 Del Method Room Air 01/15/25 08:20 BMI result Body Mass Index 21.5 Const General: no acute distress, alert, awake and confusion Orientation/consciousness: confusion Resp Effort & Inspection: normal respiratory effort and able to speak in complete sentences Auscultation: clear to auscultation bilaterally Cardio Rate: regular rate Rhythm: regular rhythm Heart sounds: S1 normal heart sound present and S2 normal heart sound present Neuro General: confusion Extrem General: No edema Results Lab Results 01/12/25 13:18 01/13/25 07:32 Lab results: Chemistry 01/12/25 01/13/25 13:18 07:32 Sodium 133 L 132 L Potassium 4.4 3.8 Carbon Dioxide 30 H 25 BUN 24 H 22 H Creatinine 0.83 0.79 Calcium 9.3 9.0 Hematology 01/12/25 13:18 WBC 8.7 Hgb 12.4 L Plt Count 210 Urinalysis 01/12/25 01/15/25 13:04 10:12 Urine Color Yellow Urine Appearance Clear Urine pH 7.0 Ur Specific [place] 1.015 1.015 Urine Protein Negative Urine Glucose (UA) Negative Urine Ketones Negative Urine Blood Trace H Urine Nitrite Negative Ur Leukocyte Esterase Trace H Urine RBC 11-20 H Urine WBC 0-5 Ur Squamous Epith Cells 0-2 Hyaline Casts 0-2 Assessment and Plan (1) Hyponatremia: Status: Acute Plan Hyponatremia is mild, 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 recommend fluid restriction of 1.5L/24 hours No need to add salt or urea tablets given serum sodium is above 130. If serum sodium is below 130, may add sodium chloride tablets 1gram PO BID given blood pressures are not elevated. Procedures Date of Service Date of Service: 01/15/25
[2025-01-15 15:10] VITALS: BP 132/68; PULSE 76
--- NOTE | 2025-01-15 15:29 | PM.EVENT ---
Event Note Date of Service: 01/15/25 Event Note: Patient noted to have decreasing H&H, will order stool for guaiac x3 and iron studies. Time Spent With Patient Time: Total time managing care of this patient today ____ minutes.
[2025-01-15 20:21] VITALS: BP 143/86; PULSE 82; RESP 16; TEMP 36.4; O2SAT 91
[2025-01-15 20:24] VITALS: BP 143/86
[2025-01-15] MEDS: Aspirin Enteric Coated 81 MG TABLET.DR PO (20:24)
--- NOTE | 2025-01-15 23:32 | HO.PSYCHPN ---
Subjective Subjective Date of Service: 01/15/25 Reason For Visit: confusion agitation Subjective Notes: Conditional Voluntary Healthcare Proxy: Yes Interim History: Patient seen psychiatric follow-up. Patient remains anxious ruminating intrusive case discussed with neurologist that healthcare proxy asked this junior copywriter to contact. Patient continues with perseveration intrusive behavior lack of ability to integrate information. Noted hyponatremia was seen by nephrology consult Medication Compliance: Yes Mental Status Exam Mental Status Exam Narrative: Pt is anxious in appearance ambulating without difficulty. Patient focused on being told that he has a large sum of money, then has something of a flight of ideas tangential not logical or linear. When asked as specific question asking for information has a very hard time just answering the question Mood anxious depressed somewhat agitated preoccupied Easily distracted poor short-term memory no gross suicidal or homicidal impulsivity or thoughts expressed marked lack of insight he does get across that he has been feeling trapped unclear if able to take in information regarding discharge planning Diagnostics Vital Signs (24Hr): Vital Signs - 24 hr 01/15/25 08:20 01/15/25 15:10 01/15/25 20:21 Temperature 98.2 F 97.5 F Pulse Rate 68 76 82 Respiratory Rate 16 16 Blood Pressure 108/58 L 132/68 143/86 H Pulse Oximetry 95 91 L Oxygen Delivery Method Room Air Room Air 01/15/25 20:24 01/15/25 20:24 Temperature Pulse Rate Respiratory Rate Blood Pressure 143/86 H 143/86 H Pulse Oximetry Oxygen Delivery Method BMI result Body Mass Index 21.5 Labs 01/12/25 13:18 01/16/25 07:49 Labs: Laboratory Results - last 48 hr 01/15/25 10:12 Ur Specific [place] 1.015 Ur Random Sodium 53.0 Imaging Radiology Impressions: ITS Impressions Brain MRI 12/15/24 09:35 IMPRESSION: Acute nonhemorrhagic ischemia involving the right precentral gyrus and left middle frontal gyrus concerning for embolic etiology. Extensive white matter disease likely related to small vessel occlusive disease. 5 mm nodular lesion, frontal horn right lateral ventricle. Malignancy cannot be excluded. Recommend IV contrast enhanced MRI brain. Global cerebral atrophy. Electronically signed by: Vincent Pandya MD 12/15/2024 10:21 AM EDT Lumbar Puncture Fluoroscopy 12/19/24 10:45 IMPRESSION: Successful fluoroscopic guided L3-4 interlaminar lumbar puncture. Electronically signed by: Kevin Barahona MD 12/19/2024 12:36 PM EDT RP Head/Neck CTA 12/21/24 10:29 IMPRESSION: No main cerebral artery occlusion or embolus. Irregular calcified plaque at the proximal right ICA at representing less than 50% stenosis. No dissection. Probable 2 mm aneurysm, right A2 segment. This critical test result is communicated to: Electronically signed by: Vincent Pandya MD 12/21/2024 12:02 PM EDT RP Chest X-Ray 01/12/25 11:15 IMPRESSION: No acute disease. Hiatal hernia involving stomach fundus. Electronically signed by: Mario Gutiérrez MD 01/12/2025 11:28 AM EDT RP Medications Medications Current Medications Acetaminophen (Acetaminophen 325 Mg Tablet) 650 mg PO Q6H PRN PRN Reason: Headache/Pain, Scale 1-10 Al Hydroxide/Mg Hydroxide (Magnesium Hydrox/Alum Hydrox 30 Ml Oral.Susp) 30 ml PO Q6H PRN PRN Reason: Heartburn/Nausea Alprazolam (Alprazolam 0.25 Mg Tablet) 0.125 mg PO TID PRN PRN Reason: Anxiety Last Admin: 01/15/25 11:56 Dose: 0.125 mg Amlodipine Besylate (Amlodipine Besylate 10 Mg Tablet) 10 mg PO BEDTIME OTILIA; Protocol Last Admin: 01/15/25 20:24 Dose: 10 mg Aspirin (Aspirin Enteric Coated 81 Mg Tablet.Dr) 81 mg PO BEDTIME OTILIA Last Admin: 01/15/25 20:24 Dose: 81 mg Atorvastatin Calcium (Atorvastatin Calcium 40 Mg Tablet) 40 mg PO BEDTIME OTILIA Last Admin: 01/15/25 20:23 Dose: 40 mg Clonidine HCl (Clonidine Hcl 0.1 Mg Tablet) 0.1 mg PO BID PRN; Protocol PRN Reason: severe anxiety Last Admin: 12/18/24 20:33 Dose: 0.1 mg Divalproex Sodium (Divalproex Sodium Sprinkles 125 Mg Cap.) 250 mg PO TID OTILIA Last Admin: 01/15/25 20:23 Dose: 250 mg Finasteride (Finasteride 5 Mg Tablet) 5 mg PO DAILY OTILIA Last Admin: 01/15/25 09:03 Dose: 5 mg Hydralazine HCl (Hydralazine Hcl 25 Mg Tablet) 25 mg PO TID [facility]; Protocol Last Admin: 01/15/25 20:24 Dose: 25 mg Lactase (Lactase Tablet) 1 tab PO Q4H PRN PRN Reason: with dairy Last Admin: 12/26/24 15:00 Dose: 1 tab Losartan Potassium (Losartan Potassium 50 Mg Tablet) 100 mg PO DAILY OTILIA; Protocol Last Admin: 01/15/25 09:00 Dose: 100 mg Magnesium Hydroxide (Milk Of Magnesia 30 Ml Oral.Susp) 30 ml PO DAILY PRN PRN Reason: Constipation Last Admin: 12/19/24 21:38 Dose: 30 ml Melatonin (Melatonin 3 Mg Tablet) 6 mg PO BEDTIME OTILIA Last Admin: 01/15/25 20:25 Dose: 6 mg Memantine (Memantine Hcl 5 Mg Tablet) 5 mg PO BID OTILIA Last Admin: 01/15/25 20:24 Dose: 5 mg Olanzapine (Olanzapine 2.5 Mg Tablet) 2.5 mg PO Q4H PRN PRN Reason: anxiety/restlessness Last Admin: 01/03/25 15:14 Dose: 2.5 mg Olanzapine (Olanzapine 5 Mg Tablet) 5 mg PO BEDTIME OTILIA Last Admin: 01/15/25 20:23 Dose: 5 mg Olanzapine (Olanzapine 2.5 Mg Tablet) 2.5 mg PO DAILY OTILIA Last Admin: 01/15/25 09:03 Dose: 2.5 mg Omeprazole (Omeprazole 20 Mg Capsule.Dr) 20 mg PO BEDTIME OTILIA Last Admin: 01/15/25 20:25 Dose: 20 mg Tamsulosin HCl (Tamsulosin Hcl 0.4 Mg Capsule) 0.8 mg PO BEDTIME OTILIA Last Admin: 01/15/25 20:24 Dose: 0.8 mg Tolterodine Tartrate (Tolterodine Tartrate La 4 Mg Cap.Er.24h) 4 mg PO DAILY [facility] Last Admin: 01/15/25 09:00 Dose: 4 mg Valacyclovir HCl (Valacyclovir Hcl 500 Mg Tablet) 500 mg PO DAILY [facility] Last Admin: 01/15/25 09:02 Dose: 500 mg Allergies Allergies Allergy/AdvReac Type Severity Reaction Status Date / Time No Known Allergies Allergy Verified 12/16/24 19:54 Assessment & Plan Assessment & Plan (1) Major 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, with agitation: Status: Acute Code(s): F02.811 - Dementia in other diseases classified elsewhere, unspecified severity, with agitation (2) Hyponatremia: Status: Acute Code(s): E87.1 - Hypo-osmolality and hyponatremia (3) Manic behavior: Status: Acute Code(s): F30.10 - Manic episode without psychotic symptoms, unspecified (4) Severe anxiety: Status: Acute Code(s): F41.9 - Anxiety disorder, unspecified (5) Hypertension: Qualifiers: Hypertension type: primary hypertension Qualified Code(s): I10 - Essential (primary) hypertension Status: Acute Code(s): I10 - Essential (primary) hypertension Plan Hyponatremia is mild, 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 recommend fluid restriction of 1.5L/24 hours No need to add salt or urea tablets given serum sodium is above 130. If serum sodium is below 130, may add sodium chloride tablets 1gram PO BID given blood pressures are not elevated. Code(s): G93.40 - Encephalopathy, unspecified Assessment and Plan: 74 years old man with acute change in mental status with psychiatric symptoms of paranoia and agitation and confusion with forgetfulness. This seems to be a relatively recent and according to him he was fine couple of months ago. This would suggest a rapidly progressive process. Differential diagnosis would include atypical encephalitis from an atypical infection, or an inflammatory process including autoimmune condition. It would also include possibility of Crutzfeld Lobito disease. His MRI of brain did reveal subtle abnormalities suggesting any of these possibilities. I recommend sending serum test for Lyme, syphilis, HIV, and blood test for sed rate. If serum or blood tests do not provide any lead, a lumbar puncture is needed to do testing on CSF. EEG is also recommended, which in some cases can also help. (3) Manic behavior: Status: Acute Code(s): F30.10 - Manic episode without psychotic symptoms, unspecified (4) Hypertension: Qualifiers: Hypertension type: primary hypertension Qualified Code(s): I10 - Essential (primary) hypertension Status: Acute Code(s): I10 - Essential (primary) hypertension (5) OCD (obsessive compulsive disorder): Status: Acute Code(s): F42.9 - Obsessive-compulsive disorder, unspecified Plan 74M PMH mood disorder, HTN, BPH, GERD, HSV, mood disorder presented on section 12 with evelyn/paranoia, found to be hypoxic and hypertensive initially admitted to hospital. Now admitted to [facility] for further care and stabilization for paranoia and agitation. Has been seen by neurology, Results of LP pending. Mood disorder/Paranoia Treatment per psych team Hypertension/HLD Continues on Losartan 100 mg daily, Amlodipine 10 mgs and Hydralazine 25 mgs TID Will change amlodipine to HS dosing. Low Salt diet. Patient asking for salt for his food. Avoid AV reji blockers including propranolol Continue Atorvastatin-LIpid panel WNL. Encephalopathy with abnormal MRI Follow recommendations from Neurology EEG testing negative for CJD or epileptic tendencies. ESR normal HIV, RPR, Lyme testing all negative Results of LP pending History of Bradycardia with normal IN interval Patient not on any AV reji blockers TSH WNL Will need Holter monitor outpatient and cardiology follow up BPH Continue finasteride and tamsulosin On Detrol GERD Omeprazole Avoid food triggers HSV Valacyclovir On Descovy for prep Thank you for allowing me to participate in the care of this patient. Will follow as needed. Please reconsult of any acute concerns or issues arise Assessment and Plan Patient with ongoing obsessional thoughts intense pressured speech racing thoughts. Mirtazapine 7.5 mg at bedtime see if help with insomnia and obsessional anxiety continue olanzapine 5 mg at bedtime with a 2.5 mg prn targeting agitation obsessional thoughts anxiety. Still do not have results from lumbar puncture which may suggest other causes besides vascular brain changes the patient's symptoms 12/25/24: Increase Depakote to 375 mg BID. 12/26: aware his mood is labile, agrees to increase VPA dosing to 500 BID. hyperverbal, anxious. 12/27/2024 Patient continues hyperverbal limited reasoning and executive function hard for him to stay on topic. Check Depakote level [place]utzfeldt-[place]se[place] pending for tomorrow then should have results regarding lumbar puncture. Increase a.m. olanzapine to 5 mg monitor gait 12/28/2024 CJD negative some improvement noted with Depakote and olanzapine less pressured improved anxiety somewhat better able to engage in linear conversation eating and drinking okay flesh pressure remains intermittently elevated will again ask hospitalist service to look at this has been difficult to control Further labs from lumbar puncture pending d/c planning 12/30/2024: No changes in current management plan and note some test results still pending from lumbar puncture 12/31: no changes Reason for continued inpatient stay Substantial Risk for rapid decompensation 01/01/25 Pt with some inc ability to think reason case reviewed with neurology no exact dx vascular plus degenerative? consider namenda 01/02/2025 Patient is still pending some labs neurology does not feel this is infectious or paraneoplastic. Looking at discharge to protected environment Case discussed with brother extensively reviewed option of Namenda mention consideration of the [place] 01/03/2025 Case reviewed with neurology and discussed still unclear diagnosis and patient's mental status remains severely impaired. Discussion held regarding possibility of transferred to [facility] later neurologist felt we should wait and see if amyloid studies come back positive and healthcare proxy Sai did have a discussion with Dr. López regarding above possibility. Consideration could be given to attempt at PET scan amyloid PET scan at some point neurologist felt only Jonel blood work was positive. Discussed option of Namenda will start tomorrow monitor for any adverse effects hopefully may help with cognition and behavioral issues 01/04/2025 Start Namenda 5 mg daily referral process started regarding [facility] case reviewed with neurology and with healthcare proxy. Continue Depakote olanz patient has apine seems somewhat helpful in decreasing agitation irritability and anxiety. Still pending results from amyloid Regarding hypertension in better control also being followed by hospitalist service 01/05/25 Patient's case reviewed with treatment team reviewed with healthcare proxy. Patient has been referred to [facility] they only have emergency meds for surgery extensive material sent case distress discussed with transfer team Deborah oneal are still pending results from amyloid and tau testing patient has been more lethargic remains on olanzapine b.i.d. and Depakote 500 b.i.d.. Will lower morning olanzapine 01/08/2025 [facility] again denies transfer stating they will only take acute surgical patient's to neurology or acute stroke. Case reviewed with Dr. López regularly from Neurology. Seems to be getting more confused increase Namenda to 5 b.i.d. lower Depakote 250 b.i.d. as tolerated pending Alzheimer screening results 01/09/25 Referrals to [facility] but refusing transfer. pt neg blood work for tau and amyloid. Pt on dec depakote in case worsening confusion. Pt unabe to participate in linear planning except for shot periods. Episodes of severe anxiety. 01/10/2025 Case reviewed with healthcare proxy as a neurologist in [place] he would like to speak to patient does have power of transactional attorney who is not patient's brother. Patient has been accepted in tense living situation no focal findings no seizure activity blood pressure in better control generally patient maintaining nutrition has been getting somewhat more anxious and dysphoric not understanding why he is here 01/11/2025 Issues clarified with hospital transactional attorney regarding assisted living working with patient's [id number] and will also continue working with John patient's brother and healthcare proxy. Patient increasingly irritable distraught increase Namenda as tolerated Depakote has been lowered alprazolam 0.125 mg PO TID 01/12/2025 Patient on water restriction with hyponatremia question Depakote now at250 t.i.d. olanzapine b.i.d. alprazolam 0.125 mg t.i.d. p.r.n.. Recheck sodium electrolytes in the morning will recheck EEG on 922 recommended by outside Neurology by healthcare proxy however unable to do serial EEG for 3-7 days at this point. Continue Namenda discharge plan hopefully to the [facility] 01/13: Continue current management and treatment plan. 01/14: continue current management and treatment plan. 01/15 Case reviewed with neurology EEG ordered rule out and MD receptor encephalitis rule out partial complex status Hematocrit decreasing check for stool guaiac check iron studies Continue treating antihypertensive with antihypertensives Monitor sodium Informed Consent: does not understand Reason for continued inpatient stay Substantial Risk for: inability to function, rapid decompensation and med/psych decompensation Time Spent With Patient Time: Total time managing care of this patient today ____ minutes.
[2025-01-16 08:10] VITALS: BP 136/66; PULSE 84; RESP 16; TEMP 36.5; O2SAT 93
[2025-01-16 08:37] LABS: Alanine Aminotransferase 26 U/L (0-40); Albumin Level 4.1 g/dL (3.5-5.0); Alkaline Phosphatase 60 U/L (39-117); Anion Gap 10 (12-20); Aspartate Amino Transferase 27 U/L (5-37); Blood Urea Nitrogen 17 mg/dL (9-16); Calcium 9.4 mg/dL (8.4-10.2); Carbon Dioxide 27 mmol/L (22-29); Chloride 103 mmol/L (96-108); Creatinine Clr Calc Pharmacy 72.7; Estimated Glomerular Filt Rate > 60; Iron 72 mcg/dL (45-160); Percent Iron Saturation 24 % (15-50); Potassium 4.1 mmol/L (3.3-5.1); Sodium 136 mmol/L (135-145); Total Iron Binding Capacity 304 mcg/dL (228-428); Total Protein 6.7 g/dL (6.5-8.0); Unsaturated Iron Binding 232 ug/dL
[2025-01-16 08:42] LABS: Ferritin 141 ng/mL (20-250)
[2025-01-16] MEDS: Divalproex Sodium Sprinkles 125 MG CAP.DR.SPR 250 MG PO ×3 (08:49→20:17)
--- NOTE | 2025-01-16 11:15 | PC.NURSE ---
After breakfast, pt was becoming increasingly anxious and agitated asking to go home and perseverating about meeting with his provider immediately. RN administered PRN Xanax 0.125mg with no effect at 0845. Pt continued becoming agitated and provider Ish Verdin was consulted. Provider ordered a one time dose of Xanax 0.125mg and advised that RN give PRN Zyprexa as well. Pt received one time dose of xanax 0.125mg and a PRN dose of Zyprexa 2.5mg at 1108 pending effect.
[2025-01-16 14:42] LABS: OBS Int Ctl Valid YES; OBS Lot 0124; OBS1 POSITIVE (NEGATIVE)
[2025-01-16 14:43] VITALS: BP 125/59; PULSE 76
--- NOTE | 2025-01-16 16:46 | PC.NURSE ---
Pt with + occult stool, Dr. Verdin and Nya Tinajero notified via text.
[2025-01-16 20:13] VITALS: BP 162/84; PULSE 78; RESP 16; TEMP 36.6; O2SAT 95
[2025-01-16 20:17] VITALS: BP 162/84
[2025-01-16] MEDS: Aspirin Enteric Coated 81 MG TABLET.DR PO (20:19)
[2025-01-16 20:23] VITALS: BP 162/84
--- NOTE | 2025-01-16 22:31 | HO.PSYCHPN ---
Subjective Subjective Date of Service: 01/16/25 Reason For Visit: confusion agitation Subjective Notes: Conditional Voluntary Healthcare Proxy: Yes Interim History: Patient remains with limited insight easily agitated anxious ruminating. Eating adequately has periods of significant anxiety. Repeat EEG unremarkable needs much reassurance keeps asking to leave and go home asking to drive his car very limited insight Case reviewed extensively with Dr. López and also with healthcare proxy Diarrhea noted Mental Status Exam Mental Status Exam Narrative: Pt is anxious in appearance ambulating without difficulty. Patient focused asking to go home having his car routes of the hospital then has something of a flight of ideas tangential not logical or linear. When asked as specific question asking for information has a very hard time just answering the question Mood increasing anxious depressed somewhat agitated preoccupied feeling trapped in the hospital Easily distracted poor short-term memory no gross suicidal or homicidal impulsivity or thoughts expressed marked lack of insight he does get across that he has been feeling trapped unclear if able to take in information regarding discharge planning Diagnostics Vital Signs (24Hr): Vital Signs - 24 hr 01/16/25 08:10 01/16/25 14:43 01/16/25 20:13 Temperature 97.7 F 97.8 F Pulse Rate 84 76 78 Respiratory Rate 16 16 Blood Pressure 136/66 125/59 L 162/84 H Pulse Oximetry 93 95 Oxygen Delivery Method Room Air Room Air 01/16/25 20:17 01/16/25 20:23 Temperature Pulse Rate Respiratory Rate Blood Pressure 162/84 H 162/84 H Pulse Oximetry Oxygen Delivery Method BMI result Body Mass Index 21.5 Labs 01/12/25 13:18 01/16/25 07:49 Labs: Laboratory Results - last 48 hr 01/15/25 01/16/25 01/16/25 10:12 07:49 13:45 Sodium 136 Potassium 4.1 Chloride 103 Carbon Dioxide 27 Anion Gap 10 L BUN 17 H Creatinine 0.81 Estim Creat Clear Calc 72.7 Estimated GFR > 60 Random Glucose 80 Calcium 9.4 Iron 72 TIBC 304 % Saturation 24 Unsat Iron Binding 232 Ferritin 141 Total Bilirubin 0.6 AST 27 ALT 26 Alkaline Phosphatase 60 Total Protein 6.7 Albumin 4.1 Ur Specific [place] 1.015 Ur Random Sodium 53.0 Stool Occult Blood POSITIVE Imaging Radiology Impressions: ITS Impressions Brain MRI 12/15/24 09:35 IMPRESSION: Acute nonhemorrhagic ischemia involving the right precentral gyrus and left middle frontal gyrus concerning for embolic etiology. Extensive white matter disease likely related to small vessel occlusive disease. 5 mm nodular lesion, frontal horn right lateral ventricle. Malignancy cannot be excluded. Recommend IV contrast enhanced MRI brain. Global cerebral atrophy. Electronically signed by: Vincent Pandya MD 12/15/2024 10:21 AM EDT RP Lumbar Puncture Fluoroscopy 12/19/24 10:45 IMPRESSION: Successful fluoroscopic guided L3-4 interlaminar lumbar puncture. Electronically signed by: Kevin Barahona MD 12/19/2024 12:36 PM EDT RP Head/Neck CTA 12/21/24 10:29 IMPRESSION: No main cerebral artery occlusion or embolus. Irregular calcified plaque at the proximal right ICA at representing less than 50% stenosis. No dissection. Probable 2 mm aneurysm, right A2 segment. This critical test result is communicated to: Electronically signed by: Vincent Pandya MD 12/21/2024 12:02 PM EDT RP Chest X-Ray 01/12/25 11:15 IMPRESSION: No acute disease. Hiatal hernia involving stomach fundus. Electronically signed by: Mario Gutiérrez MD 01/12/2025 11:28 AM EDT RP Medications Medications Current Medications Acetaminophen (Acetaminophen 325 Mg Tablet) 650 mg PO Q6H PRN PRN Reason: Headache/Pain, Scale 1-10 Al Hydroxide/Mg Hydroxide (Magnesium Hydrox/Alum Hydrox 30 Ml Oral.Susp) 30 ml PO Q6H PRN PRN Reason: Heartburn/Nausea Alprazolam (Alprazolam 0.25 Mg Tablet) 0.125 mg PO TID PRN PRN Reason: Anxiety Last Admin: 01/16/25 08:45 Dose: 0.125 mg Amlodipine Besylate (Amlodipine Besylate 10 Mg Tablet) 10 mg PO BEDTIME OTILIA; Protocol Last Admin: 01/16/25 20:23 Dose: 10 mg Aspirin (Aspirin Enteric Coated 81 Mg Tablet.Dr) 81 mg PO BEDTIME OTILIA Last Admin: 01/16/25 20:19 Dose: 81 mg Atorvastatin Calcium (Atorvastatin Calcium 40 Mg Tablet) 40 mg PO BEDTIME OTILIA Last Admin: 01/16/25 20:19 Dose: 40 mg Clonidine HCl (Clonidine Hcl 0.1 Mg Tablet) 0.1 mg PO BID PRN; Protocol PRN Reason: severe anxiety Last Admin: 12/18/24 20:33 Dose: 0.1 mg Divalproex Sodium (Divalproex Sodium Sprinkles 125 Mg ) 250 mg PO TID [facility] Last Admin: 01/16/25 20:17 Dose: 250 mg Finasteride (Finasteride 5 Mg Tablet) 5 mg PO DAILY [facility] Last Admin: 01/16/25 08:47 Dose: 5 mg Hydralazine HCl (Hydralazine Hcl 25 Mg Tablet) 25 mg PO TID OTILIA; Protocol Last Admin: 01/16/25 20:17 Dose: 25 mg Lactase (Lactase Tablet) 1 tab PO TID OTILIA Last Admin: 01/16/25 20:16 Dose: 1 tab Loperamide HCl (Loperamide Hcl 2 Mg Capsule) 2 mg PO Q6H PRN PRN Reason: Diarrhea Losartan Potassium (Losartan Potassium 50 Mg Tablet) 100 mg PO DAILY [facility]; Protocol Last Admin: 01/16/25 08:47 Dose: 100 mg Magnesium Hydroxide (Milk Of Magnesia 30 Ml Oral.Susp) 30 ml PO DAILY PRN PRN Reason: Constipation Last Admin: 12/19/24 21:38 Dose: 30 ml Melatonin (Melatonin 3 Mg Tablet) 6 mg PO BEDTIME OTILIA Last Admin: 01/16/25 20:18 Dose: 6 mg Memantine (Memantine Hcl 5 Mg Tablet) 5 mg PO BID [facility] Last Admin: 01/16/25 20:19 Dose: 5 mg Olanzapine (Olanzapine 2.5 Mg Tablet) 2.5 mg PO Q4H PRN PRN Reason: anxiety/restlessness Last Admin: 01/16/25 11:08 Dose: 2.5 mg Olanzapine (Olanzapine 5 Mg Tablet) 5 mg PO BEDTIME OTILIA Last Admin: 01/16/25 20:18 Dose: 5 mg Olanzapine (Olanzapine 2.5 Mg Tablet) 2.5 mg PO DAILY [facility] Last Admin: 01/16/25 08:48 Dose: 2.5 mg Omeprazole (Omeprazole 20 Mg Capsule.) 20 mg PO BEDTIME [facility] Last Admin: 01/16/25 20:19 Dose: 20 mg Tamsulosin HCl (Tamsulosin Hcl 0.4 Mg Capsule) 0.8 mg PO BEDTIME OTILIA Last Admin: 01/16/25 20:19 Dose: 0.8 mg Tolterodine Tartrate (Tolterodine Tartrate La 4 Mg Cap.Er.24h) 4 mg PO DAILY [facility] Last Admin: 01/16/25 08:48 Dose: 4 mg Valacyclovir HCl (Valacyclovir Hcl 500 Mg Tablet) 500 mg PO DAILY [facility] Last Admin: 01/16/25 08:48 Dose: 500 mg Allergies Allergies Allergy/AdvReac Type Severity Reaction Status Date / Time No Known Allergies Allergy Verified 12/16/24 19:54 Assessment & Plan Assessment & Plan (1) Major 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, with agitation: Status: Acute Code(s): F02.811 - Dementia in other diseases classified elsewhere, unspecified severity, with agitation (2) Hyponatremia: Status: Acute Code(s): E87.1 - Hypo-osmolality and hyponatremia (3) Manic behavior: Status: Acute Code(s): F30.10 - Manic episode without psychotic symptoms, unspecified (4) Severe anxiety: Status: Acute Code(s): F41.9 - Anxiety disorder, unspecified (5) Hypertension: Qualifiers: Hypertension type: primary hypertension Qualified Code(s): I10 - Essential (primary) hypertension Status: Acute Code(s): I10 - Essential (primary) hypertension Plan Hyponatremia is mild, 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 recommend fluid restriction of 1.5L/24 hours No need to add salt or urea tablets given serum sodium is above 130. If serum sodium is below 130, may add sodium chloride tablets 1gram PO BID given blood pressures are not elevated. Code(s): G93.40 - Encephalopathy, unspecified Assessment and Plan: 74 years old man with acute change in mental status with psychiatric symptoms of paranoia and agitation and confusion with forgetfulness. This seems to be a relatively recent and according to him he was fine couple of months ago. This would suggest a rapidly progressive process. Differential diagnosis would include atypical encephalitis from an atypical infection, or an inflammatory process including autoimmune condition. It would also include possibility of Crutzfeld Lobito disease. His MRI of brain did reveal subtle abnormalities suggesting any of these possibilities. I recommend sending serum test for Lyme, syphilis, HIV, and blood test for sed rate. If serum or blood tests do not provide any lead, a lumbar puncture is needed to do testing on CSF. EEG is also recommended, which in some cases can also help. (3) Manic behavior: Status: Acute Code(s): F30.10 - Manic episode without psychotic symptoms, unspecified (4) Hypertension: Qualifiers: Hypertension type: primary hypertension Qualified Code(s): I10 - Essential (primary) hypertension Status: Acute Code(s): I10 - Essential (primary) hypertension (5) OCD (obsessive compulsive disorder): Status: Acute Code(s): F42.9 - Obsessive-compulsive disorder, unspecified Plan 74M PMH mood disorder, HTN, BPH, GERD, HSV, mood disorder presented on section 12 with evelyn/paranoia, found to be hypoxic and hypertensive initially admitted to hospital. Now admitted to [facility] for further care and stabilization for paranoia and agitation. Has been seen by neurology, Results of LP pending. Mood disorder/Paranoia Treatment per psych team Hypertension/HLD Continues on Losartan 100 mg daily, Amlodipine 10 mgs and Hydralazine 25 mgs TID Will change amlodipine to HS dosing. Low Salt diet. Patient asking for salt for his food. Avoid AV reji blockers including propranolol Continue Atorvastatin-LIpid panel WNL. Encephalopathy with abnormal MRI Follow recommendations from Neurology EEG testing negative for CJD or epileptic tendencies. ESR normal HIV, RPR, Lyme testing all negative Results of LP pending History of Bradycardia with normal NM interval Patient not on any AV reji blockers TSH WNL Will need Holter monitor outpatient and cardiology follow up BPH Continue finasteride and tamsulosin On Detrol GERD Omeprazole Avoid food triggers HSV Valacyclovir On Descovy for prep Thank you for allowing me to participate in the care of this patient. Will follow as needed. Please reconsult of any acute concerns or issues arise Assessment and Plan Patient with ongoing obsessional thoughts intense pressured speech racing thoughts. Mirtazapine 7.5 mg at bedtime see if help with insomnia and obsessional anxiety continue olanzapine 5 mg at bedtime with a 2.5 mg prn targeting agitation obsessional thoughts anxiety. Still do not have results from lumbar puncture which may suggest other causes besides vascular brain changes the patient's symptoms 12/25/24: Increase Depakote to 375 mg BID. 12/26: aware his mood is labile, agrees to increase VPA dosing to 500 BID. hyperverbal, anxious. 12/27/2024 Patient continues hyperverbal limited reasoning and executive function hard for him to stay on topic. Check Depakote level [place]utzfel[place]se[place] pending for tomorrow then should have results regarding lumbar puncture. Increase a.m. olanzapine to 5 mg monitor gait 12/28/2024 CJD negative some improvement noted with Depakote and olanzapine less pressured improved anxiety somewhat better able to engage in linear conversation eating and drinking okay flesh pressure remains intermittently elevated will again ask hospitalist service to look at this has been difficult to control Further labs from lumbar puncture pending d/c planning 12/30/2024: No changes in current management plan and note some test results still pending from lumbar puncture 12/31: no changes Reason for continued inpatient stay Substantial Risk for rapid decompensation 01/01/25 Pt with some inc ability to think reason case reviewed with neurology no exact dx vascular plus degenerative? consider namenda 01/02/2025 Patient is still pending some labs neurology does not feel this is infectious or paraneoplastic. Looking at discharge to protected environment Case discussed with brother extensively reviewed option of Namenda mention consideration of the [place] 01/03/2025 Case reviewed with neurology and discussed still unclear diagnosis and patient's mental status remains severely impaired. Discussion held regarding possibility of transferred to [facility] later neurologist felt we should wait and see if amyloid studies come back positive and healthcare proxy Sai did have a discussion with Dr. López regarding above possibility. Consideration could be given to attempt at PET scan amyloid PET scan at some point neurologist felt only Jonel blood work was positive. Discussed option of Namenda will start tomorrow monitor for any adverse effects hopefully may help with cognition and behavioral issues 01/04/2025 Start Namenda 5 mg daily referral process started regarding [facility] [place] reviewed with neurology and with healthcare proxy. Continue Depakote olanz patient has apine seems somewhat helpful in decreasing agitation irritability and anxiety. Still pending results from amyloid Regarding hypertension in better control also being followed by hospitalist service 01/05/25 Patient's case reviewed with treatment team reviewed with healthcare proxy. Patient has been referred to [facility] they only have emergency meds for surgery extensive material sent case distress discussed with transfer team Deborah oneal are still pending results from amyloid and tau testing patient has been more lethargic remains on olanzapine b.i.d. and Depakote 500 b.i.d.. Will lower morning olanzapine 01/08/2025 [facility] [place] transfer stating they will only take acute surgical patient's to neurology or acute stroke. Case reviewed with Dr. López regularly from Neurology. Seems to be getting more confused increase Namenda to 5 b.i.d. lower Depakote 250 b.i.d. as tolerated pending Alzheimer screening results 01/09/25 Referrals to [facility] but refusing transfer. pt neg blood work for tau and amyloid. Pt on dec depakote in case worsening confusion. Pt unabe to participate in linear planning except for shot periods. Episodes of severe anxiety. 01/10/2025 Case reviewed with healthcare proxy as a neurologist in [place] he would like to speak to patient does have power of tax associate attorney who is not patient's brother. Patient has been accepted in tense living situation no focal findings no seizure activity blood pressure in better control generally patient maintaining nutrition has been getting somewhat more anxious and dysphoric not understanding why he is here 01/11/2025 Issues clarified with hospital tax associate attorney regarding assisted living working with patient's [id number] and will also continue working with John patient's brother and healthcare proxy. Patient increasingly irritable distraught increase Namenda as tolerated Depakote has been lowered alprazolam 0.125 mg PO TID 01/12/2025 Patient on water restriction with hyponatremia question Depakote now at250 t.i.d. olanzapine b.i.d. alprazolam 0.125 mg t.i.d. p.r.n.. Recheck sodium electrolytes in the morning will recheck EEG on 922 recommended by outside Neurology by healthcare proxy however unable to do serial EEG for 3-7 days at this point. Continue Namenda discharge plan hopefully to the [facility] 01/13: Continue current management and treatment plan. 01/14: continue current management and treatment plan. 01/15 Case reviewed with neurology EEG ordered rule out and MD receptor encephalitis rule out partial complex status Hematocrit decreasing check for stool guaiac check iron studies Continue treating antihypertensive with antihypertensives Monitor sodium 01/16 Patient's mood significantly anxious ruminating. Case extensively discussed with neurology Dr. López and with healthcare proxy. Patient markers for autoimmune encephalitis and CSF were not able to be completed and will need repeat lumbar puncture per neurology this mortgage or loan underwriter also agrees and case discussed with healthcare proxy who agrees with repeat LP. Patient noted to have positive blood in his stool and diarrhea. Hospitalist service will follow-up and will most likely need to be seen by Gastroenterology. Iron studies completed. Monitor CBC hyponatremia has normalized patient may have been taking in excess fluids. Discharge planning continues patient scheduled when stable to go to the [facility] having a very difficult time with this transition Guardian/Caregiver educated on: diagnosis, medical condition and other Reason for continued inpatient stay Substantial Risk for: inability to function, rapid decompensation and med/psych decompensation Time Spent With Patient Time: Total time managing care of this patient today __60__ minutes.
--- NOTE | 2025-01-17 | EEG_ITS ---
Roomed Performed: 1st floor lab Reason: Acute encephalopathy History: H/O HIV (human immunodeficiency virus infection), OCD (obsessive compulsive disorder), HSV (herpes simplex virus) infection, BPH (benign prostatic hyperplasia), Sleep trouble - admitted for subacute onset of neuropsychiatric syndrome resulting in cognitive and psychotic symptomatology Medication: Acetaminophen, Al Hydroxide/Mg Hydroxide, Alprazolam, Amlodipine Besylate, Aspirin, Atorvastatin Calcium, Clonidine, Divalproex Sodium,Finasteride,Hydralazine,Lactase, Magnesium Hydroxide, Melatonin, Memantine, Olanzapine, Olanzapine, Olanzapine, Omeprazole, Tamsulosin, Tolterodine Tartrate, Valacyclovir Technical description: Photic stimulation:omitted Hyperventilation: not performed Behavioral state: periods of anxious and restless at times but cooperative - sitter was present throughout recording State of Consciousness: awake, drowsy with brief periods of sleep Skull defect: no Sedation:no Handedness: Right Duration of study: This EEG was recorded for 4 hours in duration in the lab setting -CPT code [id number]- unmonitored Description: This is a 16 channel EEG with an EKG lead. EEG lasted for 4 hours. Patient was mostly awake during the tracing. Background EEG rhythm was mixed theta beta low to medium amplitude with no obvious asymmetry or paroxysmal tendency. No sharp waves or spikes are noted. Some lead and muscle artifacts are noted. Cardiac lead does not reveal any significant abnormality. Impression: Mild slowing with no evidence of epileptic discharges or any other abnormality MTDD
[2025-01-17 08:16] VITALS: BP 104/60; PULSE 66; RESP 18; TEMP 35.8; O2SAT 93
[2025-01-17] MEDS: Divalproex Sodium Sprinkles 125 MG CAP.DR.SPR 250 MG PO ×3 (08:18→19:46)
--- NOTE | 2025-01-17 08:28 | HO.PM.IMPN ---
Subjective Subjective Date of Service: 01/17/25 Interval History: Patient has been incontinent of stools, positive guaiac stool due to decreased H&H. He denies any abdominal pain, reports no diarrhea today. Speech is clear however he is still is not completely completing thoughts and making sense. Telling stories. His recent iron studies were within normal limits. He is due to have a repeat LP. Denies shortness of breath or chest pain. Ambulating with a steady gait Review of Systems Denies shortness of breath, chest pain, headaches, visual changes. Physical Exam Exam: Exam: CONST: Alert and confused, in NAD. HEENT: Normocephalic, atraumatic, MMM, Eyes clear, Neck supple RESP: Lungs clear, RRR even and regular HEART:,RRR, S1, S2. No edema GI:Abdomen Soft NT, ND. + BS times four :Deferred SKIN: Warm dry and intact, no visible lesions or rashes NEURO:CN II-XII Intact bilaterally, Sensation intact. Speech clear but nonsensical. PSYCH: Calm and cooperative affect Vital Signs: Vital Signs: Last Vital Signs Temp 96.4 F L 01/17/25 08:16 Pulse 66 01/17/25 08:16 Resp 18 01/17/25 08:16 BP 104/60 01/17/25 08:16 Pulse Ox 93 01/17/25 08:16 O2 Del Method Room Air 01/17/25 08:16 BMI result Body Mass Index 21.5 Objective Data Active Medications Acetaminophen (Acetaminophen 325 Mg Tablet) 650 mg PO Q6H PRN PRN Reason: Headache/Pain, Scale 1-10 Al Hydroxide/Mg Hydroxide (Magnesium Hydrox/Alum Hydrox 30 Ml Oral.Susp) 30 ml PO Q6H PRN PRN Reason: Heartburn/Nausea Alprazolam (Alprazolam 0.25 Mg Tablet) 0.125 mg PO TID PRN PRN Reason: Anxiety Last Admin: 01/16/25 08:45 Dose: 0.125 mg Documented By: MAIKEL Amlodipine Besylate (Amlodipine Besylate 10 Mg Tablet) 10 mg PO BEDTIME OTILIA; Protocol Last Admin: 01/16/25 20:23 Dose: 10 mg Documented By: DELON Aspirin (Aspirin Enteric Coated 81 Mg Tablet.) 81 mg PO BEDTIME OTILIA Last Admin: 01/16/25 20:19 Dose: 81 mg Documented By: DELON Atorvastatin Calcium (Atorvastatin Calcium 40 Mg Tablet) 40 mg PO BEDTIME [facility] Last Admin: 01/16/25 20:19 Dose: 40 mg Documented By: DELON Clonidine HCl (Clonidine Hcl 0.1 Mg Tablet) 0.1 mg PO BID PRN; Protocol PRN Reason: severe anxiety Last Admin: 12/18/24 20:33 Dose: 0.1 mg Documented By: KINGS Divalproex Sodium (Divalproex Sodium Sprinkles 125 Mg ) 250 mg PO TID [facility] Last Admin: 01/17/25 08:18 Dose: 250 mg Documented By: SAMINA Finasteride (Finasteride 5 Mg Tablet) 5 mg PO DAILY [facility] Last Admin: 01/17/25 08:17 Dose: 5 mg Documented By: SAMINA Hydralazine HCl (Hydralazine Hcl 25 Mg Tablet) 25 mg PO TID [facility]; Protocol Last Admin: 01/17/25 08:20 Dose: 25 mg Documented By: SAMINA Lactase (Lactase Tablet) 1 tab PO TID [facility] Last Admin: 01/17/25 08:18 Dose: 1 tab Documented By: SAMINA Loperamide HCl (Loperamide Hcl 2 Mg Capsule) 2 mg PO Q6H PRN PRN Reason: Diarrhea Losartan Potassium (Losartan Potassium 50 Mg Tablet) 100 mg PO DAILY [facility]; Protocol Last Admin: 01/17/25 08:17 Dose: 100 mg Documented By: SAMINA Magnesium Hydroxide (Milk Of Magnesia 30 Ml Oral.Susp) 30 ml PO DAILY PRN PRN Reason: Constipation Last Admin: 12/19/24 21:38 Dose: 30 ml Documented By: DELON Melatonin (Melatonin 3 Mg Tablet) 6 mg PO BEDTIME [facility] Last Admin: 01/16/25 20:18 Dose: 6 mg Documented By: DELON Memantine (Memantine Hcl 5 Mg Tablet) 5 mg PO BID [facility] Last Admin: 01/17/25 08:20 Dose: 5 mg Documented By: SAMINA Olanzapine (Olanzapine 2.5 Mg Tablet) 2.5 mg PO Q4H PRN PRN Reason: anxiety/restlessness Last Admin: 01/16/25 11:08 Dose: 2.5 mg Documented By: MAIKEL Olanzapine (Olanzapine 5 Mg Tablet) 5 mg PO BEDTIME [facility] Last Admin: 01/16/25 20:18 Dose: 5 mg Documented By: DELON Olanzapine (Olanzapine 2.5 Mg Tablet) 2.5 mg PO DAILY [facility] Last Admin: 01/17/25 08:20 Dose: 2.5 mg Documented By: SAMINA Omeprazole (Omeprazole 20 Mg Capsule.Dr) 20 mg PO BEDTIME [facility] Last Admin: 01/16/25 20:19 Dose: 20 mg Documented By: DELON Tamsulosin HCl (Tamsulosin Hcl 0.4 Mg Capsule) 0.8 mg PO BEDTIME [facility] Last Admin: 01/16/25 20:19 Dose: 0.8 mg Documented By: DELON Tolterodine Tartrate (Tolterodine Tartrate La 4 Mg Cap.Er.24h) 4 mg PO DAILY [facility] Last Admin: 01/17/25 08:19 Dose: 4 mg Documented By: SAMINA Valacyclovir HCl (Valacyclovir Hcl 500 Mg Tablet) 500 mg PO DAILY [facility] Last Admin: 01/17/25 08:20 Dose: 500 mg Documented By: SAMINA Labs 01/12/25 13:18 01/16/25 07:49 Labs: Laboratory Results - last 24 hr 01/16/25 01/16/25 07:49 13:45 Anion Gap 10 L Estim Creat Clear Calc 72.7 Estimated GFR > 60 Random Glucose 80 Calcium 9.4 Iron 72 TIBC 304 % Saturation 24 Unsat Iron Binding 232 Ferritin 141 Total Bilirubin 0.6 AST 27 ALT 26 Alkaline Phosphatase 60 Total Protein 6.7 Albumin 4.1 Stool Occult Blood POSITIVE Assessment and Plan (1) Anemia: Status: Acute (2) Manic behavior: Status: Acute Plan 74M PMH mood disorder, HTN, BPH, GERD, HSV, mood disorder presented on section 12 with evelyn/paranoia, found to be hypoxic and hypertensive initially admitted to hospital. Now admitted to [facility] for further care and stabilization for paranoia and agitation. Has been seen by neurology, Results of LP pending. Mood disorder/Paranoia/major neurocognitive disorder/dementia Treatment per psych team Anemia Iron studies normal + Guaiac stool If hemolysis HWANG negative will need GI follow up outpatient Hematology consult and Hemolysis Work up History of hyponatremis 1500 CC fluid restriction Hypertension/HLD Continues on Losartan 100 mg daily, Amlodipine 10 mgs and Hydralazine 25 mgs TID Blood pressure is stable. Low Salt diet. Avoid AV reji blockers including propranolol Continue Atorvastatin-Lipid panel WNL. Encephalopathy with abnormal MRI EEG testing negative for CJD or epileptic tendencies. ESR normal HIV, RPR, Lyme testing all negative 4 hour EEG magy this morning. History of Bradycardia with normal SC interval Patient not on any AV reji blockers TSH WNL Will need Holter monitor outpatient and cardiology follow up BPH Continue finasteride and tamsulosin On Detrol GERD Omeprazole Avoid food triggers HSV Valacyclovir Thank you for allowing me to participate in the care of this patient. Will follow as needed. Please reconsult of any acute concerns or issues arise Quality Stroke Does the patient have a stroke diagnosis?: No VTE Prior VTE?: No VTE Risk Level:: Medical - low VTE Device Contraindication: Treatment Not Indicated VTE Drug Contraindication: Treatment Not Indicated
--- NOTE | 2025-01-17 09:28 | P.PNPSI_ITS ---
Subjective Subjective Date of Service: 01/17/25 Reason For Visit: confusion agitation Subjective Notes: Conditional Voluntary Healthcare Proxy: Yes Interim History: Patient found sitting in his room. He is pleasantly confused and disorganized, but alert and oriented to person and place. He is med compliant. He has been eating and sleeping well. He denies SI/HI/AH/VH He had EEG and lumbar puncture procedure today. Per nursing, his guiac was positive and will be repeated today. Medication Compliance: Yes Side effects from medications: No Attending Groups: Intermittent Review of Systems Acute medical concerns: No Mental Status Exam Mental Status Exam Narrative: Appearance: Casually dressed, adequate hygiene Behavior: Calm and cooperative throughout the interview. Eye contact is appropriate, and there are no signs of psychomotor agitation or retardation Speech: Normal volume and prosody, Thought process: Disorganized, tangential Thought content: No self-harming thoughts Mood: Calm Affect: Full, mood-congruent SI:denies HI:denies VH/AH:none Delusions: possible Insight/judgment: Impaired insight and judgment Memory/cog: Alert, oriented x 2. grossly intact to conversational testing Diagnostics Vital Signs (24Hr): Vital Signs - 24 hr 01/16/25 14:43 01/16/25 20:13 01/16/25 20:17 Temperature 97.8 F Pulse Rate 76 78 Respiratory Rate 16 Blood Pressure 125/59 L 162/84 H 162/84 H Pulse Oximetry 95 Oxygen Delivery Method Room Air 01/16/25 20:23 01/17/25 08:16 Temperature 96.4 F L Pulse Rate 66 Respiratory Rate 18 Blood Pressure 162/84 H 104/60 Pulse Oximetry 93 Oxygen Delivery Method Room Air BMI result Body Mass Index 21.5 Labs 01/12/25 13:18 01/16/25 07:49 Labs: Laboratory Results - last 48 hr 01/15/25 01/16/25 01/16/25 10:12 07:49 13:45 Sodium 136 Potassium 4.1 Chloride 103 Carbon Dioxide 27 Anion Gap 10 L BUN 17 H Creatinine 0.81 Estim Creat Clear Calc 72.7 Estimated GFR > 60 Random Glucose 80 Calcium 9.4 Iron 72 TIBC 304 % Saturation 24 Unsat Iron Binding 232 Ferritin 141 Total Bilirubin 0.6 AST 27 ALT 26 Alkaline Phosphatase 60 Total Protein 6.7 Albumin 4.1 Ur Specific [place] 1.015 Ur Random Sodium 53.0 Stool Occult Blood POSITIVE Imaging Radiology Impressions: ITS Impressions Brain MRI 12/15/24 09:35 IMPRESSION: Acute nonhemorrhagic ischemia involving the right precentral gyrus and left middle frontal gyrus concerning for embolic etiology. Extensive white matter disease likely related to small vessel occlusive disease. 5 mm nodular lesion, frontal horn right lateral ventricle. Malignancy cannot be excluded. Recommend IV contrast enhanced MRI brain. Global cerebral atrophy. Electronically signed by: Vincent Pandya MD 12/15/2024 10:21 AM EDT RP Lumbar Puncture Fluoroscopy 12/19/24 10:45 IMPRESSION: Successful fluoroscopic guided L3-4 interlaminar lumbar puncture. Electronically signed by: Kevin Barahona MD 12/19/2024 12:36 PM EDT RP Head/Neck CTA 12/21/24 10:29 IMPRESSION: No main cerebral artery occlusion or embolus. Irregular calcified plaque at the proximal right ICA at representing less than 50% stenosis. No dissection. Probable 2 mm aneurysm, right A2 segment. This critical test result is communicated to: Electronically signed by: Vincent Pandya MD 12/21/2024 12:02 PM EDT RP Chest X-Ray 01/12/25 11:15 IMPRESSION: No acute disease. Hiatal hernia involving stomach fundus. Electronically signed by: Mario Gutiérrez MD 01/12/2025 11:28 AM EDT RP Medications Medications Current Medications Acetaminophen (Acetaminophen 325 Mg Tablet) 650 mg PO Q6H PRN PRN Reason: Headache/Pain, Scale 1-10 Al Hydroxide/Mg Hydroxide (Magnesium Hydrox/Alum Hydrox 30 Ml Oral.Susp) 30 ml PO Q6H PRN PRN Reason: Heartburn/Nausea Alprazolam (Alprazolam 0.25 Mg Tablet) 0.125 mg PO TID PRN PRN Reason: Anxiety Last Admin: 01/16/25 08:45 Dose: 0.125 mg Amlodipine Besylate (Amlodipine Besylate 10 Mg Tablet) 10 mg PO BEDTIME OTILIA; Protocol Last Admin: 01/16/25 20:23 Dose: 10 mg Aspirin (Aspirin Enteric Coated 81 Mg Tablet.Dr) 81 mg PO BEDTIME OTILIA Last Admin: 01/16/25 20:19 Dose: 81 mg Atorvastatin Calcium (Atorvastatin Calcium 40 Mg Tablet) 40 mg PO BEDTIME OTILIA Last Admin: 01/16/25 20:19 Dose: 40 mg Clonidine HCl (Clonidine Hcl 0.1 Mg Tablet) 0.1 mg PO BID PRN; Protocol PRN Reason: severe anxiety Last Admin: 12/18/24 20:33 Dose: 0.1 mg Divalproex Sodium (Divalproex Sodium Sprinkles 125 Mg ) 250 mg PO TID OTILIA Last Admin: 01/17/25 08:18 Dose: 250 mg Finasteride (Finasteride 5 Mg Tablet) 5 mg PO DAILY OT[facility] Last Admin: 01/17/25 08:17 Dose: 5 mg Hydralazine HCl (Hydralazine Hcl 25 Mg Tablet) 25 mg PO TID OT[facility]; Protocol Last Admin: 01/17/25 08:20 Dose: 25 mg Lactase (Lactase Tablet) 1 tab PO TID OTILIA Last Admin: 01/17/25 08:18 Dose: 1 tab Loperamide HCl (Loperamide Hcl 2 Mg Capsule) 2 mg PO Q6H PRN PRN Reason: Diarrhea Losartan Potassium (Losartan Potassium 50 Mg Tablet) 100 mg PO DAILY OT[facility]; Protocol Last Admin: 01/17/25 08:17 Dose: 100 mg Magnesium Hydroxide (Milk Of Magnesia 30 Ml Oral.Susp) 30 ml PO DAILY PRN PRN Reason: Constipation Last Admin: 12/19/24 21:38 Dose: 30 ml Melatonin (Melatonin 3 Mg Tablet) 6 mg PO BEDTIME OT[facility] Last Admin: 01/16/25 20:18 Dose: 6 mg Memantine (Memantine Hcl 5 Mg Tablet) 5 mg PO BID [facility] Last Admin: 01/17/25 08:20 Dose: 5 mg Olanzapine (Olanzapine 2.5 Mg Tablet) 2.5 mg PO Q4H PRN PRN Reason: anxiety/restlessness Last Admin: 01/16/25 11:08 Dose: 2.5 mg Olanzapine (Olanzapine 5 Mg Tablet) 5 mg PO BEDTIME OTILIA Last Admin: 01/16/25 20:18 Dose: 5 mg Olanzapine (Olanzapine 2.5 Mg Tablet) 2.5 mg PO DAILY [facility] Last Admin: 01/17/25 08:20 Dose: 2.5 mg Omeprazole (Omeprazole 20 Mg ) 20 mg PO BEDTIME OTILIA Last Admin: 01/16/25 20:19 Dose: 20 mg Tamsulosin HCl (Tamsulosin Hcl 0.4 Mg Capsule) 0.8 mg PO BEDTIME [facility] Last Admin: 01/16/25 20:19 Dose: 0.8 mg Tolterodine Tartrate (Tolterodine Tartrate La 4 Mg Cap.Er.24h) 4 mg PO DAILY [facility] Last Admin: 01/17/25 08:19 Dose: 4 mg Valacyclovir HCl (Valacyclovir Hcl 500 Mg Tablet) 500 mg PO DAILY [facility] Last Admin: 01/17/25 08:20 Dose: 500 mg Allergies Allergies Allergy/AdvReac Type Severity Reaction Status Date / Time No Known Allergies Allergy Verified 12/16/24 19:54 Assessment & Plan Assessment & Plan (1) Major 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, with agitation: Status: Acute Code(s): F02.811 - Dementia in other diseases classified elsewhere, unspecified severity, with agitation (2) Hyponatremia: Status: Acute Code(s): E87.1 - Hypo-osmolality and hyponatremia (3) Manic behavior: Status: Acute Code(s): F30.10 - Manic episode without psychotic symptoms, unspecified (4) Severe anxiety: Status: Acute Code(s): F41.9 - Anxiety disorder, unspecified (5) Hypertension: Qualifiers: Hypertension type: primary hypertension Qualified Code(s): I10 - Essential (primary) hypertension Status: Acute Code(s): I10 - Essential (primary) hypertension Plan Hyponatremia is mild, 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 recommend fluid restriction of 1.5L/24 hours No need to add salt or urea tablets given serum sodium is above 130. If serum sodium is below 130, may add sodium chloride tablets 1gram PO BID given blood pressures are not elevated. Code(s): G93.40 - Encephalopathy, unspecified Assessment and Plan: 74 years old man with acute change in mental status with psychiatric symptoms of paranoia and agitation and confusion with forgetfulness. This seems to be a relatively recent and according to him he was fine couple of months ago. This would suggest a rapidly progressive process. Differential diagnosis would include atypical encephalitis from an atypical infection, or an inflammatory process including autoimmune condition. It would also include possibility of Crutzfeld Lobito disease. His MRI of brain did reveal subtle abnormalities suggesting any of these possibilities. I recommend sending serum test for Lyme, syphilis, HIV, and blood test for sed rate. If serum or blood tests do not provide any lead, a lumbar puncture is needed to do testing on CSF. EEG is also recommended, which in some cases can also help. (3) Manic behavior: Status: Acute Code(s): F30.10 - Manic episode without psychotic symptoms, unspecified (4) Hypertension: Qualifiers: Hypertension type: primary hypertension Qualified Code(s): I10 - Essential (primary) hypertension Status: Acute Code(s): I10 - Essential (primary) hypertension (5) OCD (obsessive compulsive disorder): Status: Acute Code(s): F42.9 - Obsessive-compulsive disorder, unspecified Plan 74M PMH mood disorder, HTN, BPH, GERD, HSV, mood disorder presented on section 12 with evelyn/paranoia, found to be hypoxic and hypertensive initially admitted to hospital. Now admitted to [facility] for further care and stabilization for paranoia and agitation. Has been seen by neurology, Results of LP pending. Mood disorder/Paranoia Treatment per psych team Hypertension/HLD Continues on Losartan 100 mg daily, Amlodipine 10 mgs and Hydralazine 25 mgs TID Will change amlodipine to HS dosing. Low Salt diet. Patient asking for salt for his food. Avoid AV reji blockers including propranolol Continue Atorvastatin-LIpid panel WNL. Encephalopathy with abnormal MRI Follow recommendations from Neurology EEG testing negative for CJD or epileptic tendencies. ESR normal HIV, RPR, Lyme testing all negative Results of LP pending History of Bradycardia with normal NM interval Patient not on any AV reji blockers TSH WNL Will need Holter monitor outpatient and cardiology follow up BPH Continue finasteride and tamsulosin On Detrol GERD Omeprazole Avoid food triggers HSV Valacyclovir On [place] for prep Thank you for allowing me to participate in the care of this patient. Will follow as needed. Please reconsult of any acute concerns or issues arise Assessment and Plan Patient with ongoing obsessional thoughts intense pressured speech racing thoughts. Mirtazapine 7.5 mg at bedtime see if help with insomnia and obsessional anxiety continue olanzapine 5 mg at bedtime with a 2.5 mg prn targeting agitation obsessional thoughts anxiety. Still do not have results from lumbar puncture which may suggest other causes besides vascular brain changes the patient's symptoms 12/25/24: Increase Depakote to 375 mg BID. 9/2: aware his mood is labile, agrees to increase VPA dosing to 500 BID. hyperverbal, anxious. 12/27/2024 Patient continues hyperverbal limited reasoning and executive function hard for him to stay on topic. Check Depakote level [place]utzfel[place] pending for tomorrow then should have results regarding lumbar puncture. Increase a.m. olanzapine to 5 mg monitor gait 12/28/2024 CJD negative some improvement noted with Depakote and olanzapine less pressured improved anxiety somewhat better able to engage in linear conversation eating and drinking okay flesh pressure remains intermittently elevated will again ask hospitalist service to look at this has been difficult to control Further labs from lumbar puncture pending d/c planning 12/30/2024: No changes in current management plan and note some test results still pending from lumbar puncture 12/31: no changes Reason for continued inpatient stay Substantial Risk for rapid decompensation 01/01/25 Pt with some inc ability to think reason case reviewed with neurology no exact dx vascular plus degenerative? consider namenda 01/02/2025 Patient is still pending some labs neurology does not feel this is infectious or paraneoplastic. Looking at discharge to protected environment Case discussed with brother extensively reviewed option of Namenda mention consideration of the [place] 01/03/2025 Case reviewed with neurology and discussed still unclear diagnosis and patient's mental status remains severely impaired. Discussion held regarding possibility of transferred to [facility] later neurologist felt we should wait and see if amyloid studies come back positive and healthcare proxy Sai did have a discussion with Dr. López regarding above possibility. Consideration could be given to attempt at PET scan amyloid PET scan at some point neurologist felt only AYAD Remy blood work was positive. Discussed option of Namenda will start tomorrow monitor for any adverse effects hopefully may help with cognition and behavioral issues 01/04/2025 Start Namenda 5 mg daily referral process started regarding [facility] [place] case reviewed with neurology and with healthcare proxy. Continue Depakote olanz patient has apine seems somewhat helpful in decreasing agitation irritability and anxiety. Still pending results from amyloid Regarding hypertension in better control also being followed by hospitalist service 01/05/25 Patient's case reviewed with treatment team reviewed with healthcare proxy. Patient has been referred to [facility] they only have emergency meds for surgery extensive material sent case distress discussed with transfer team Deborah oneal are still pending results from amyloid and tau testing patient has been more lethargic remains on olanzapine b.i.d. and Depakote 500 b.i.d.. Will lower morning olanzapine 01/08/2025 [facility] [place] again denies transfer stating they will only take acute surgical patient's to neurology or acute stroke. Case reviewed with Dr. López regularly from Neurology. Seems to be getting more confused increase Namenda to 5 b.i.d. lower Depakote 250 b.i.d. as tolerated pending Alzheimer screening results 01/09/25 Referrals to [facility] but refusing transfer. pt neg blood work for tau and amyloid. Pt on dec depakote in case worsening confusion. Pt unabe to participate in linear planning except for shot periods. Episodes of severe anxiety. 01/10/2025 Case reviewed with healthcare proxy as a neurologist in [place] he would like to speak to patient does have power of mobile web application developer who is not patient's brother. Patient has been accepted in tense living situation no focal findings no seizure activity blood pressure in better control generally patient maintaining nutrition has been getting somewhat more anxious and dysphoric not understanding why he is here 01/11/2025 Issues clarified with hospital mobile web application developer regarding assisted living working with patient's [id number] and will also continue working with John patient's brother and healthcare proxy. Patient increasingly irritable distraught increase Namenda as tolerated Depakote has been lowered alprazolam 0.125 mg PO TID 01/12/2025 Patient on water restriction with hyponatremia question Depakote now at250 t.i.d. olanzapine b.i.d. alprazolam 0.125 mg t.i.d. p.r.n.. Recheck sodium electrolytes in the morning will recheck EEG on 922 recommended by outside Neurology by healthcare proxy however unable to do serial EEG for 3-7 days at this point. Continue Namenda discharge plan hopefully to the [facility] 01/13: Continue current management and treatment plan. 01/14: continue current management and treatment plan. 01/15 Case reviewed with neurology EEG ordered rule out and MD receptor encephalitis rule out partial complex status Hematocrit decreasing check for stool guaiac check iron studies Continue treating antihypertensive with antihypertensives Monitor sodium 01/16 Patient's mood significantly anxious ruminating. Case extensively discussed with neurology Dr. López and with healthcare proxy. Patient markers for autoimmune encephalitis and CSF were not able to be completed and will need repeat lumbar puncture per neurology this creative writer also agrees and case discussed with healthcare proxy who agrees with repeat LP. Patient noted to have positive blood in his stool and diarrhea. Hospitalist service will follow-up and will most likely need to be seen by Gastroenterology. Iron studies completed. Monitor CBC hyponatremia has normalized patient may have been taking in excess fluids. Discharge planning continues patient scheduled when stable to go to the [facility] having a very difficult time with this transition 01/17: Had EEG and second lumbar procedure today. He is calm and cooperative and pleasantly confused. Continue current treatment regimen. Patient educated on: therapeutic strategies Reason for continued inpatient stay Substantial Risk for: rapid decompensation Time Spent With Patient Time: Total time managing care of this patient today ____ minutes.
[2025-01-17 13:40] LABS: Oligoclonal Serum Yes
[2025-01-17 14:54] VITALS: BP 142/75; PULSE 72
--- NOTE | 2025-01-17 15:47 | PM.NEUROCN ---
History of Present Illness Data of Consult Service Date: 01/17/25 Primary Care Provider: Unknown Physician HPI Reason for consult: Encephalopathy 74 years old man with a subacute onset of neuropsychiatric syndrome resulting in cognitive and psychotic symptomatology. Is testing for seizure D was negative. Recent EEG did not many significant abnormality other than mild slowing. Dr. Verdin and I had multiple communications regarding his further workup. My recommendation was to transfer him to a tertiary care institution but he has tried in multiple places and apparently that was not successful. With that we have decided to pursue any further testing on are and. We discussed potential value of CSF analysis including autoimmune encephalitis panel in a lumbar puncture was arranged. So far there has been no evidence of overt convulsion type of seizure. 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 If so, by whom?: No Do you feel safe in your current relationship?: No Current Relationship Is there a partner from a previous relationship who is making you feel unsafe now?: No Are you made to feel afraid or neglected: No Are you DNR?: No Advance Directives: No Advance Directives Information Provided: No Do you have thoughts of harming others: None Do you have a plan to hurt others: No Plan Recently lost weight without trying: No Eating poorly because of decreased appetite: No Nutrition Risks: No Nutritional Risk Poor oral hygiene: No service: No Travel History Ebola Risk: Travel/Contact With Anyone From Affected Area/s: No Has Patient Experienced Ebola Symptoms: No Meds Allergies Allergy/AdvReac Type Severity Reaction Status Date / Time No Known Allergies Allergy Verified 12/16/24 19:54 Active Medications: Current Medications Acetaminophen (Acetaminophen 325 Mg Tablet) 650 mg PO Q6H PRN PRN Reason: Headache/Pain, Scale 1-10 Al Hydroxide/Mg Hydroxide (Magnesium Hydrox/Alum Hydrox 30 Ml Oral.Susp) 30 ml PO Q6H PRN PRN Reason: Heartburn/Nausea Alprazolam (Alprazolam 0.25 Mg Tablet) 0.125 mg PO TID PRN PRN Reason: Anxiety Last Admin: 01/16/25 08:45 Dose: 0.125 mg Amlodipine Besylate (Amlodipine Besylate 10 Mg Tablet) 10 mg PO BEDTIME OTILIA; Protocol Last Admin: 01/16/25 20:23 Dose: 10 mg Aspirin (Aspirin Enteric Coated 81 Mg Tablet.) 81 mg PO BEDTIME OTILIA Last Admin: 01/16/25 20:19 Dose: 81 mg Atorvastatin Calcium (Atorvastatin Calcium 40 Mg Tablet) 40 mg PO BEDTIME OTILIA Last Admin: 01/16/25 20:19 Dose: 40 mg Clonidine HCl (Clonidine Hcl 0.1 Mg Tablet) 0.1 mg PO BID PRN; Protocol PRN Reason: severe anxiety Last Admin: 12/18/24 20:33 Dose: 0.1 mg Divalproex Sodium (Divalproex Sodium Sprinkles 125 Mg Cap.) 250 mg PO TID OTILIA Last Admin: 01/17/25 14:56 Dose: 250 mg Finasteride (Finasteride 5 Mg Tablet) 5 mg PO DAILY [facility] Last Admin: 01/17/25 08:17 Dose: 5 mg Hydralazine HCl (Hydralazine Hcl 25 Mg Tablet) 25 mg PO TID OTILIA; Protocol Last Admin: 01/17/25 14:56 Dose: 25 mg Lactase (Lactase Tablet) 1 tab PO TIDAC OTILIA Loperamide HCl (Loperamide Hcl 2 Mg Capsule) 2 mg PO Q6H PRN PRN Reason: Diarrhea Losartan Potassium (Losartan Potassium 50 Mg Tablet) 100 mg PO DAILY OTILIA; Protocol Last Admin: 01/17/25 08:17 Dose: 100 mg Magnesium Hydroxide (Milk Of Magnesia 30 Ml Oral.Susp) 30 ml PO DAILY PRN PRN Reason: Constipation Last Admin: 12/19/24 21:38 Dose: 30 ml Melatonin (Melatonin 3 Mg Tablet) 6 mg PO BEDTIME OTILIA Last Admin: 01/16/25 20:18 Dose: 6 mg Memantine (Memantine Hcl 5 Mg Tablet) 5 mg PO BID OTILIA Last Admin: 01/17/25 08:20 Dose: 5 mg Olanzapine (Olanzapine 2.5 Mg Tablet) 2.5 mg PO Q4H PRN PRN Reason: anxiety/restlessness Last Admin: 01/16/25 11:08 Dose: 2.5 mg Olanzapine (Olanzapine 5 Mg Tablet) 5 mg PO BEDTIME OTILIA Last Admin: 01/16/25 20:18 Dose: 5 mg Olanzapine (Olanzapine 2.5 Mg Tablet) 2.5 mg PO DAILY [facility] Last Admin: 01/17/25 08:20 Dose: 2.5 mg Omeprazole (Omeprazole 20 Mg Capsule.Dr) 20 mg PO BEDTIME [facility] Last Admin: 01/16/25 20:19 Dose: 20 mg Tamsulosin HCl (Tamsulosin Hcl 0.4 Mg Capsule) 0.8 mg PO BEDTIME [facility] Last Admin: 01/16/25 20:19 Dose: 0.8 mg Tolterodine Tartrate (Tolterodine Tartrate La 4 Mg Cap.Er.24h) 4 mg PO DAILY [facility] Last Admin: 01/17/25 08:19 Dose: 4 mg Valacyclovir HCl (Valacyclovir Hcl 500 Mg Tablet) 500 mg PO DAILY [facility] Last Admin: 01/17/25 08:20 Dose: 500 mg Home Medications ?Medication ?Instructions ?Recorded ?Confirmed ?Last Taken ?Type emtricitabine 200 mg-tenofovir 1 tab PO DAILY 12/05/24 12/12/24 Unknown History alafenamide fumarate 25 mg tablet (Descovy) finasteride 5 mg tablet 5 mg PO DAILY 12/05/24 12/12/24 Unknown History losartan 100 mg tablet 100 mg PO DAILY 12/05/24 12/12/24 Unknown History omeprazole 20 mg capsule,delayed 20 mg PO BEDTIME 12/05/24 12/12/24 Unknown History release tamsulosin 0.4 mg capsule 0.8 mg PO BEDTIME 12/05/24 12/12/24 Unknown History trospium 20 mg tablet 20 mg PO BID 12/05/24 12/12/24 Unknown History valacyclovir 500 mg tablet 500 mg PO DAILY 12/05/24 12/12/24 Unknown History vibegron 75 mg tablet (Gemtesa) 75 mg PO DAILY 12/05/24 12/12/24 Unknown History Physical Exam Vital Signs: Vital Signs: Last Vital Signs Temp 96.4 F L 01/17/25 08:16 Pulse 72 01/17/25 14:54 Resp 18 01/17/25 08:16 BP 142/75 H 01/17/25 14:54 Pulse Ox 93 01/17/25 08:16 O2 Del Method Room Air 01/17/25 08:16 BMI result Body Mass Index 21.5 Neuro: Other: I saw him earlier this morning when he was in his bed and sleeping. I went back later in the afternoon when he was sitting and talking to someone. 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 There was no obvious abnormal posturing or tremor. He was able to get up and walk around with no significant difficulty. Results Labs 01/12/25 13:18 01/16/25 07:49 Microbiology Microbiology Results: Microbiology 12/19/24 11:15 Spine Fungal Identification - Preliminary No growth after 3 weeks. 12/19/24 11:15 Cerebrospinal Fluid Gram Stain - Final 12/19/24 11:15 Cerebrospinal Fluid Fluid Description - Final 12/19/24 11:15 Cerebrospinal Fluid CSF Culture - Final No growth after 3 days. Assessment and Plan (1) Encephalopathy: Qualifiers: Encephalopathy type: unspecified encephalopathy Qualified Code(s): G93.40 - Encephalopathy, unspecified Status: Acute 74 years old man with multifactorial neuropsychiatric syndrome. Psychotic symptoms have appeared during last few months and other than vascular disease and cerebral degeneration, no obvious etiology has been confirmed. EEG did not reveal any epileptic discharge. Laboratories so far have been negative including test for CJD. Plan is to have another sample of CSF and sent for routine CSF studies and autoimmune encephalitis panel. Until then, symptomatic conservative management continuous. Procedures Date of Service Date of Service: 01/17/25
[2025-01-17 16:50] VITALS: BP 120/62; PULSE 79; RESP 18; TEMP 36.6; O2SAT 94
--- NOTE | 2025-01-17 17:12 | PC.NURSE ---
The patient was eating dinner when he got food stuck in the back of his throat. The other patient called for help and [facility] the [facility] on him. We could hear his air exchange when approaching him, he never lost consciousness and was able to chew up and swallow the food. His color is within normal limits and he continued eating after his food was chopped up. Lisa Almodovar NP and the patient's brother John Kitchen were notified by this junior underwriter today at 1650 and 1700 respectively. Vital signs are stable at 97.9-18-79-120/62, with O2 Sat 94% on room air.
--- NOTE | 2025-01-17 17:24 | PC.NURSE ---
60 cc clear yellow urine collected at 1717 via clean catch per order and sent to the lab.
[2025-01-17 17:36] LABS: Baso%MD 0.9 %; Eos%MD 1.4 %; Hematocrit 35.0 % (42.0-52.0); Hemoglobin 12.4 g/dl (14.0-18.0); IG%MD 0.6 %; Lymph%MD 23.7 %; Mean Corpuscular HGB Conc 35.4 g/dl (31.0-36.0); Mean Corpuscular Hemoglobin 35.0 pg (27.0-33.0); Mean Corpuscular Volume 98.9 fL (80.0-98.0); Mono%MD 10.0 %; NRBC Abs Auto 0.000 X10*3/uL (0.0-0.012); NRBC Pct Auto 0.0 /100WBC (0.0-0.2); Neut%MD 63.4 %; Platelet Count 246 X10*3/uL (160-400); Red Blood Count 3.54 X10*6/uL (4.60-5.80); Reticulocytes Absolute 0.100 X10*6/uL (0.026-0.095); White Blood Count 7.0 X10*3/uL (4.8-10.8)
[2025-01-17 17:40] LABS: Appearance Urine Clear; Glucose Urine UA Negative (Negative); PH 7.5 (5.0-9.0); Specific Gravity - Urine 1.010 (1.005-1.025)
[2025-01-17 17:56] LABS: Anion Gap 12 (12-20); Blood Urea Nitrogen 15 mg/dL (9-16); Calcium 9.6 mg/dL (8.4-10.2); Carbon Dioxide 25 mmol/L (22-29); Chloride 104 mmol/L (96-108); Creatinine Clr Calc Pharmacy 66.2; Estimated Glomerular Filt Rate > 60; Potassium 4.3 mmol/L (3.3-5.1); Sodium 137 mmol/L (135-145)
[2025-01-17 18:34] VITALS: BMI 21.0
[2025-01-17 18:35] LABS: Band Neutrophils Percent 1 % (3-5); Basophils Abs Manual 0.1 X10*3/uL (0.0-0.2); Basophils Percent Manual 1 % (0-2); Lymphocytes Absolute Manual 2.1 X10*3/uL (1.2-4.9); Lymphocytes Percent Manual 30 % (20-40); Metamyelocytes Absolute 0.1 X10*3/uL; Metamyelocytes Percent 1 %; Monocytes Absolute Manual 0.4 X10*3/uL (0.1-1.2); Monocytes Percent Manual 5 % (2-11); Neutrophils Absolute Manual 4.4 X10*3/uL (2.0-8.3); Neutrophils Percent Manual 62 % (45-73)
[2025-01-17 18:36] LABS: Macrocytosis 1+ (5-14) /OIF; RBC Morphology NOTED
[2025-01-17 19:44] VITALS: BP 117/57; PULSE 72; RESP 16; TEMP 36.6; O2SAT 92
[2025-01-17 19:47] VITALS: BP 117/57
[2025-01-17 19:48] VITALS: BP 117/57
[2025-01-17] MEDS: Aspirin Enteric Coated 81 MG TABLET.DR PO (19:48)
--- NOTE | 2025-01-18 07:08 | PM.EVENT ---
Patient admitted with psychosis, found to have mild normocytic anemia and guaiac-positive stool. At this time I do not see any reason for Hematology/Oncology consultation. Please call with any specific question or concerns. Thank you.
[2025-01-18 08:27] VITALS: BP 125/61; PULSE 76; RESP 18; O2SAT 94
[2025-01-18] MEDS: Divalproex Sodium Sprinkles 125 MG CAP.DR.SPR 250 MG PO ×3 (08:30→20:05)
[2025-01-18 10:30] VITALS: BMI 21.1
[2025-01-18 13:07] VITALS: TEMP 35.9
--- NOTE | 2025-01-18 15:16 | PC.NURSE ---
Patient returned to the unit at 1500 from his lumbar puncture . Per verbal report from JUAN CARLOS [place] he did very well, his vitals were stable throughout and he has no restrictions and no dressing at the procedure site. B/P 140/67 and P 70at 1516. Patient alert and responsive.
[2025-01-18 15:18] VITALS: BP 140/67; PULSE 70
--- NOTE | 2025-01-18 15:26 | PC.NURSE ---
Patient seen by speech therapy today for bedside swallow evaluation. Speech recommends that Ulisses remains on a chopped diet and sits at his own table just for meals due to a lot of talking during intake of food.
--- NOTE | 2025-01-18 15:31 | HO.PSYCHPN ---
Subjective Subjective Date of Service: 01/18/25 Reason For Visit: confusion agitation Subjective Notes: Conditional Voluntary Healthcare Proxy: Yes Interim History: pt with severe anxiety agitation confusion did have lp maintaing food and fluids Mental Status Exam Mental Status Exam Narrative: Appearance: Casually dressed, adequate hygiene Behavior agitated anxious ruminating Speech: Normal volume and prosody, Thought process: Disorganized, tangential Thought content: rambling Mood: anxious Affect: labile anxious SI:denies HI:denies VH/AH:none Delusions: possible Insight/judgment: Impaired insight and judgment Memory/cog: Alert, oriented x 2. grossly intact to conversational testing Diagnostics Vital Signs (24Hr): Vital Signs - 24 hr 01/17/25 16:50 01/17/25 19:44 01/17/25 19:47 Temperature 97.9 F 98 F Pulse Rate 79 72 Respiratory Rate 18 16 Blood Pressure 120/62 117/57 L 117/57 L Pulse Oximetry 94 92 Oxygen Delivery Method Room Air Room Air 01/17/25 19:48 01/18/25 08:27 01/18/25 13:07 Temperature 96.7 F L Pulse Rate 76 Respiratory Rate 18 Blood Pressure 117/57 L 125/61 Pulse Oximetry 94 Oxygen Delivery Method Room Air 01/18/25 15:18 Temperature Pulse Rate 70 Respiratory Rate Blood Pressure 140/67 H Pulse Oximetry Oxygen Delivery Method BMI result Body Mass Index 21.1 Labs 01/17/25 17:29 01/17/25 17:29 Labs: Laboratory Results - last 48 hr 01/17/25 01/17/25 01/17/25 13:39 17:17 17:29 WBC 7.0 RBC 3.54 L Hgb 12.4 L Hct 35.0 L MCV 98.9 H MCH 35.0 H MCHC 35.4 RDW 12.9 Plt Count 246 MPV 9.4 Immature Gran % (Auto) Cancelled Neut % (Auto) Cancelled Lymph % (Auto) Cancelled [place] % (Auto) Cancelled Eos % (Auto) Cancelled Baso % (Auto) Cancelled Lymph # (Auto) Cancelled [place] # (Auto) Cancelled Eos # (Auto) Cancelled Baso # (Auto) Cancelled Abs Immat Gran (auto) Cancelled Absolute Neuts (auto) Cancelled Absolute Nucleated RBC 0.000 Nucleated RBC % (auto) 0.0 Neutrophils % (Manual) 62 Band Neutrophils % 1 L Lymphocytes % (Manual) 30 Monocytes % (Manual) 5 Basophils % (Manual) 1 Metamyelocytes % 1 Abs Neuts (Manual) 4.4 Lymphocytes # (Manual) 2.1 Monocytes # (Manual) 0.4 Basophils # (Manual) 0.1 Metamyelocytes # 0.1 Platelet Estimate NORMAL Plt Morphology Comment NORMAL RBC Morphology NOTED Macrocytosis 1+ (5-14) Absolute Retic 0.100 H Percent Retic 2.8 H Immature Retic Fraction 12.2 Retic Hgb Equivalent 37.9 H Sodium 137 Potassium 4.3 Chloride 104 Carbon Dioxide 25 Anion Gap 12 BUN 15 Creatinine 0.89 Estim Creat Clear Calc 66.2 Estimated GFR > 60 Random Glucose 166 H Haptoglobin Calcium 9.6 Direct Bilirubin 0.3 Lactate Dehydrogenase 233 Urine Color Yellow Urine Appearance Clear Urine pH 7.5 Ur Specific [place] 1.010 Urine Protein Negative Urine Glucose (UA) Negative Urine Ketones Negative Urine Blood Negative Urine Nitrite Negative Ur Leukocyte Esterase Negative CSF Tube Number CSF Appearance (b) CSF Glucose CSF Total Protein ESDRAS, Polyspecific NEGATIVE Positive ESDRAS Work-up TNP 01/17/25 01/18/25 17:30 11:25 WBC RBC Hgb Hct MCV MCH MCHC RDW Plt Count MPV Immature Gran % (Auto) Neut % (Auto) Lymph % (Auto) [place] % (Auto) Eos % (Auto) Baso % (Auto) Lymph # (Auto) [place] # (Auto) Eos # (Auto) Baso # (Auto) Abs Immat Gran (auto) Absolute Neuts (auto) Absolute Nucleated RBC Nucleated RBC % (auto) Neutrophils % (Manual) Band Neutrophils % Lymphocytes % (Manual) Monocytes % (Manual) Basophils % (Manual) Metamyelocytes % Abs Neuts (Manual) Lymphocytes # (Manual) Monocytes # (Manual) Basophils # (Manual) Metamyelocytes # Platelet Estimate Plt Morphology Comment RBC Morphology Macrocytosis Absolute Retic Percent Retic Immature Retic Fraction Retic Hgb Equivalent Sodium Potassium Chloride Carbon Dioxide Anion Gap BUN Creatinine Estim Creat Clear Calc Estimated GFR Random Glucose Haptoglobin 155 Calcium Direct Bilirubin Lactate Dehydrogenase Urine Color Urine Appearance Urine pH Ur Specific [place] Urine Protein Urine Glucose (UA) Urine Ketones Urine Blood Urine Nitrite Ur Leukocyte Esterase CSF Tube Number 1 CSF Appearance (b) Clear, Colorless CSF Glucose 62 CSF Total Protein 29.8 ESDRAS, Polyspecific Positive ESDRAS Work-up Imaging Radiology Impressions: ITS Impressions Brain MRI 12/15/24 09:35 IMPRESSION: Acute nonhemorrhagic ischemia involving the right precentral gyrus and left middle frontal gyrus concerning for embolic etiology. Extensive white matter disease likely related to small vessel occlusive disease. 5 mm nodular lesion, frontal horn right lateral ventricle. Malignancy cannot be excluded. Recommend IV contrast enhanced MRI brain. Global cerebral atrophy. Electronically signed by: Vincent Pandya MD 12/15/2024 10:21 AM EDT RP Lumbar Puncture Fluoroscopy 12/19/24 10:45 IMPRESSION: Successful fluoroscopic guided L3-4 interlaminar lumbar puncture. Electronically signed by: Kevin Barahona MD 12/19/2024 12:36 PM EDT RP Head/Neck CTA 12/21/24 10:29 IMPRESSION: No main cerebral artery occlusion or embolus. Irregular calcified plaque at the proximal right ICA at representing less than 50% stenosis. No dissection. Probable 2 mm aneurysm, right A2 segment. This critical test result is communicated to: Electronically signed by: Vincent Pandya MD 12/21/2024 12:02 PM EDT RP Chest X-Ray 01/12/25 11:15 IMPRESSION: No acute disease. Hiatal hernia involving stomach fundus. Electronically signed by: Mario Gutiérrez MD 01/12/2025 11:28 AM EDT RP Lumbar Puncture Fluoroscopy 01/18/25 13:45 IMPRESSION: Successful fluoroscopy-guided L4-5 lumbar puncture performed without immediate complications. Electronically signed by: Nabil Olvera MD 01/18/2025 02:57 PM EDT RP Medications Medications Current Medications Acetaminophen (Acetaminophen 325 Mg Tablet) 650 mg PO Q6H PRN PRN Reason: Headache/Pain, Scale 1-10 Al Hydroxide/Mg Hydroxide (Magnesium Hydrox/Alum Hydrox 30 Ml Oral.Susp) 30 ml PO Q6H PRN PRN Reason: Heartburn/Nausea Alprazolam (Alprazolam 0.25 Mg Tablet) 0.125 mg PO TID PRN PRN Reason: Anxiety Last Admin: 01/16/25 08:45 Dose: 0.125 mg Amlodipine Besylate (Amlodipine Besylate 10 Mg Tablet) 10 mg PO BEDTIME OTILIA; Protocol Last Admin: 01/17/25 19:47 Dose: 10 mg Aspirin (Aspirin Enteric Coated 81 Mg Tablet.) 81 mg PO BEDTIME OTILIA Last Admin: 01/17/25 19:48 Dose: 81 mg Atorvastatin Calcium (Atorvastatin Calcium 40 Mg Tablet) 40 mg PO BEDTIME OTILIA Last Admin: 01/17/25 19:47 Dose: 40 mg Clonidine HCl (Clonidine Hcl 0.1 Mg Tablet) 0.1 mg PO BID PRN; Protocol PRN Reason: severe anxiety Last Admin: 12/18/24 20:33 Dose: 0.1 mg Divalproex Sodium (Divalproex Sodium Sprinkles 125 Mg Cap.) 250 mg PO TID OTILIA Last Admin: 01/18/25 15:24 Dose: 250 mg Finasteride (Finasteride 5 Mg Tablet) 5 mg PO DAILY OTILIA Last Admin: 01/18/25 08:28 Dose: 5 mg Hydralazine HCl (Hydralazine Hcl 25 Mg Tablet) 25 mg PO TID OTILIA; Protocol Last Admin: 01/18/25 15:24 Dose: 25 mg Lactase (Lactase Tablet) 1 tab PO TIDAC OTILIA Last Admin: 01/18/25 11:15 Dose: 1 tab Loperamide HCl (Loperamide Hcl 2 Mg Capsule) 2 mg PO Q6H PRN PRN Reason: Diarrhea Losartan Potassium (Losartan Potassium 50 Mg Tablet) 100 mg PO DAILY OTILIA; Protocol Last Admin: 01/18/25 08:31 Dose: 100 mg Magnesium Hydroxide (Milk Of Magnesia 30 Ml Oral.Susp) 30 ml PO DAILY PRN PRN Reason: Constipation Last Admin: 12/19/24 21:38 Dose: 30 ml Melatonin (Melatonin 3 Mg Tablet) 6 mg PO BEDTIME OTILIA Last Admin: 01/17/25 19:47 Dose: 6 mg Memantine (Memantine Hcl 5 Mg Tablet) 5 mg PO BID OTILIA Last Admin: 01/18/25 08:29 Dose: 5 mg Olanzapine (Olanzapine 2.5 Mg Tablet) 2.5 mg PO Q4H PRN PRN Reason: anxiety/restlessness Last Admin: 01/16/25 11:08 Dose: 2.5 mg Olanzapine (Olanzapine 5 Mg Tablet) 5 mg PO BEDTIME OTILIA Last Admin: 01/17/25 19:48 Dose: 5 mg Olanzapine (Olanzapine 2.5 Mg Tablet) 2.5 mg PO DAILY [facility] Last Admin: 01/18/25 08:30 Dose: 2.5 mg Omeprazole (Omeprazole 20 Mg Capsule.Dr) 20 mg PO BEDTIME [facility] Last Admin: 01/17/25 19:48 Dose: 20 mg Tamsulosin HCl (Tamsulosin Hcl 0.4 Mg Capsule) 0.8 mg PO BEDTIME [facility] Last Admin: 01/17/25 19:47 Dose: 0.8 mg Tolterodine Tartrate (Tolterodine Tartrate La 4 Mg Cap.Er.24h) 4 mg PO DAILY [facility] Last Admin: 01/18/25 08:29 Dose: 4 mg Valacyclovir HCl (Valacyclovir Hcl 500 Mg Tablet) 500 mg PO DAILY [facility] Last Admin: 01/18/25 08:32 Dose: 500 mg Allergies Allergies Allergy/AdvReac Type Severity Reaction Status Date / Time No Known Allergies Allergy Verified 12/16/24 19:54 Assessment & Plan Assessment & Plan (1) Encephalopathy: Qualifiers: Encephalopathy type: unspecified encephalopathy Qualified Code(s): G93.40 - Encephalopathy, unspecified Status: Acute Code(s): G93.40 - Encephalopathy, unspecified Assessment and Plan: 74 years old man with multifactorial neuropsychiatric syndrome. Psychotic symptoms have appeared during last few months and other than vascular disease and cerebral degeneration, no obvious etiology has been confirmed. EEG did not reveal any epileptic discharge. Laboratories so far have been negative including test for CJD. Plan is to have another sample of CSF and sent for routine CSF studies and autoimmune encephalitis panel. Until then, symptomatic conservative management continuous. Plan Assessment and Plan Patient with ongoing obsessional thoughts intense pressured speech racing thoughts. Mirtazapine 7.5 mg at bedtime see if help with insomnia and obsessional anxiety continue olanzapine 5 mg at bedtime with a 2.5 mg prn targeting agitation obsessional thoughts anxiety. Still do not have results from lumbar puncture which may suggest other causes besides vascular brain changes the patient's symptoms 12/25/24: Increase Depakote to 375 mg BID. 12/26: aware his mood is labile, agrees to increase VPA dosing to 500 BID. hyperverbal, anxious. 12/27/2024 Patient continues hyperverbal limited reasoning and executive function hard for him to stay on topic. Check Depakote level [place]utz[place]se[place] pending for tomorrow then should have results regarding lumbar puncture. Increase a.m. olanzapine to 5 mg monitor gait 12/28/2024 CJD negative some improvement noted with Depakote and olanzapine less pressured improved anxiety somewhat better able to engage in linear conversation eating and drinking okay flesh pressure remains intermittently elevated will again ask hospitalist service to look at this has been difficult to control Further labs from lumbar puncture pending d/c planning 12/30/2024: No changes in current management plan and note some test results still pending from lumbar puncture 12/31: no changes Reason for continued inpatient stay Substantial Risk for rapid decompensation 01/01/25 Pt with some inc ability to think reason case reviewed with neurology no exact dx vascular plus degenerative? consider namenda 01/02/2025 Patient is still pending some labs neurology does not feel this is infectious or paraneoplastic. Looking at discharge to protected environment Case discussed with brother extensively reviewed option of Namenda mention consideration of the [place] 01/03/2025 Case reviewed with neurology and discussed still unclear diagnosis and patient's mental status remains severely impaired. Discussion held regarding possibility of transferred to [facility] later neurologist felt we should wait and see if amyloid studies come back positive and healthcare proxy Sai did have a discussion with Dr. López regarding above possibility. Consideration could be given to attempt at PET scan amyloid PET scan at some point neurologist felt only AYAD Remy blood work was positive. Discussed option of Namenda will start tomorrow monitor for any adverse effects hopefully may help with cognition and behavioral issues 01/04/2025 Start Namenda 5 mg daily referral process started regarding [facility] case reviewed with neurology and with healthcare proxy. Continue Depakote olanz patient has apine seems somewhat helpful in decreasing agitation irritability and anxiety. Still pending results from amyloid Regarding hypertension in better control also being followed by hospitalist service 01/05/25 Patient's case reviewed with treatment team reviewed with healthcare proxy. Patient has been referred to [facility] they only have emergency meds for surgery extensive material sent case distress discussed with transfer team Deborah oneal are still pending results from amyloid and tau testing patient has been more lethargic remains on olanzapine b.i.d. and Depakote 500 b.i.d.. Will lower morning olanzapine 01/08/2025 [facility] again denies transfer stating they will only take acute surgical patient's to neurology or acute stroke. Case reviewed with Dr. López regularly from Neurology. Seems to be getting more confused increase Namenda to 5 b.i.d. lower Depakote 250 b.i.d. as tolerated pending Alzheimer screening results 01/09/25 Referrals to [facility] but refusing transfer. pt neg blood work for tau and amyloid. Pt on dec depakote in case worsening confusion. Pt unabe to participate in linear planning except for shot periods. Episodes of severe anxiety. 01/10/2025 Case reviewed with healthcare proxy as a neurologist in [place] he would like to speak to patient does have power of interior designer who is not patient's brother. Patient has been accepted in tense living situation no focal findings no seizure activity blood pressure in better control generally patient maintaining nutrition has been getting somewhat more anxious and dysphoric not understanding why he is here 01/11/2025 Issues clarified with hospital interior designer regarding assisted living working with patient's [id number] and will also continue working with John patient's brother and healthcare proxy. Patient increasingly irritable distraught increase Namenda as tolerated Depakote has been lowered alprazolam 0.125 mg PO TID 01/12/2025 Patient on water restriction with hyponatremia question Depakote now at250 t.i.d. olanzapine b.i.d. alprazolam 0.125 mg t.i.d. p.r.n.. Recheck sodium electrolytes in the morning will recheck EEG on 922 recommended by outside Neurology by healthcare proxy however unable to do serial EEG for 3-7 days at this point. Continue Namenda discharge plan hopefully to the [facility] 01/13: Continue current management and treatment plan. 01/14: continue current management and treatment plan. 01/15 Case reviewed with neurology EEG ordered rule out and MD receptor encephalitis rule out partial complex status Hematocrit decreasing check for stool guaiac check iron studies Continue treating antihypertensive with antihypertensives Monitor sodium 01/16 Patient's mood significantly anxious ruminating. Case extensively discussed with neurology Dr. López and with healthcare proxy. Patient markers for autoimmune encephalitis and CSF were not able to be completed and will need repeat lumbar puncture per neurology this medical technical writer also agrees and case discussed with healthcare proxy who agrees with repeat LP. Patient noted to have positive blood in his stool and diarrhea. Hospitalist service will follow-up and will most likely need to be seen by Gastroenterology. Iron studies completed. Monitor CBC hyponatremia has normalized patient may have been taking in excess fluids. Discharge planning continues patient scheduled when stable to go to the [facility] having a very difficult time with this transition 01/18/25 Pt with significant anxiety rumination results from LP not yet back has alprazolam prn olanzapine depakote not stabilizing anxiety case reviewed extensively with hcp pt pending placement at [facility] q1 Reason for continued inpatient stay Substantial Risk for: inability to function, rapid decompensation and med/psych decompensation Time Spent With Patient Time: Total time managing care of this patient today ____ minutes.
[2025-01-18 15:36] LABS: Red Blood Cell CSF 2 MM*3; White Blood Cell CSF 0 MM*3
[2025-01-18 15:56] LABS: CSF Other Cells % 8 %; Lymphocytes CSF 50 %
--- NOTE | 2025-01-18 16:30 | MHC.SL.SWA ---
Speech Pathologist Impression: Risk of Aspiration Due to: Distractibility Dysphasia Diet Status: Liquid Consistency and Strategies for Safe Swallow: Liquid Intake Recommendation: Thin Liquid Intake Strategies: Solid Food Consistency: Dietary Recommendations: Chopped/Advanced (NDD3) Additional Modifications to Solid Foods: Oral Medication Intake: Whole with Liquid Please contact the pharmacy regarding appropriate crushable or liquid drug formulations that are available whenever modified delivery is recommended. Compensatory Strategies and Precautions to be Taken for Safe Swallow: Supervision While Eating and Drinking for Safe Swallow: Intermittent Supervision Foods to Avoid: Too large pieces of food, tough, difficult to chew solids. Swallowing Recommended Treatments: Recommendation for Speech: Inpatient Speech Therapy Comment: Patient's swallow function is judged to be WFL, however he remains at risk for choking or aspirating secondary to patient's high distractibility, impulsive behaviors, and speaking while eating. Recommend continue on current diet of Chopped/Advanced (NDD3) to provide softer, bite sized food, Regular liquids, and pills whole with puree. Patient requires behavioral modifications and cuing: Provide calm environment with reduced distractions. Patient should be encouraged to focus on food, discouraged from talking while eating. RN advised of recommendations in person, MD by secure text. INSIDE PLANT SUPERVISOR will f/u 1-2 times to assure patient's toleration. Frequency/Duration: Date Range for Service Req: Timeline to reassess: Environmental Inspector Clinican/Clinical Fellow: No Supervisory Statement: I have reviewed and agree with the student/clinical fellow's documentation: N/A Speech Language Pathologist: Rosaline Coker M.A., [facility]-INSIDE PLANT SUPERVISOR
[2025-01-18 20:00] VITALS: BP 153/74; PULSE 77; RESP 16; TEMP 36.6; O2SAT 92
[2025-01-18 20:05] VITALS: BP 153/74
[2025-01-18] MEDS: Aspirin Enteric Coated 81 MG TABLET.DR PO (20:06)
[2025-01-19 08:41] VITALS: BP 134/65; PULSE 73; RESP 18; TEMP 36.3; O2SAT 94
[2025-01-19] MEDS: Divalproex Sodium Sprinkles 125 MG CAP.DR.SPR 250 MG PO ×3 (08:42→20:17)
--- NOTE | 2025-01-19 13:51 | MHC.SLORD ---
Speech Language Pathology Order Status: Patient observed from a distance at lunch today to not distract patient/cause need to verbalize. Patient seated away from others to minimize distraction, engaged in meal, and progressing well. Patient is tolerating diet, calmer setting/minimal distractions.
[2025-01-19 15:09] VITALS: BP 120/57
--- NOTE | 2025-01-19 15:58 | HO.PSYCHPN ---
Subjective Subjective Date of Service: 01/19/25 Reason For Visit: confusion agitation Subjective Notes: Conditional Voluntary and 3 Day Healthcare Proxy: Yes Interim History: Pt with periodic agitation irritability becoming more agitated deperate wanting to leave unable to tolerate generally grp activities has no real understanding of his condition Medication Compliance: Yes Review of Systems Acute medical concerns: Yes Mental Status Exam Mental Status Exam Narrative: Appearance: Casually dressed, adequate hygiene Behavior agitated anxious ruminating Speech: Normal volume and prosody, Thought process: Disorganized, tangential Thought content: rambling Mood: anxious Affect: labile anxious SI:denies HI:denies VH/AH:none Delusions: possible Insight/judgment: Impaired insight and judgment Memory/cog: Alert, oriented x 2. grossly intact to conversational testing Diagnostics Vital Signs (24Hr): Vital Signs - 24 hr 01/18/25 20:00 01/18/25 20:05 01/18/25 20:05 Temperature 97.8 F Pulse Rate 77 Respiratory Rate 16 Blood Pressure 153/74 H 153/74 H 153/74 H Pulse Oximetry 92 Oxygen Delivery Method Room Air 01/19/25 08:41 01/19/25 15:09 Temperature 97.4 F Pulse Rate 73 Respiratory Rate 18 Blood Pressure 134/65 120/57 L Pulse Oximetry 94 Oxygen Delivery Method Room Air BMI result Body Mass Index 21.1 Labs 01/17/25 17:29 01/17/25 17:29 Labs: Laboratory Results - last 48 hr 01/17/25 01/17/25 01/17/25 17:17 17:29 17:30 WBC 7.0 RBC 3.54 L Hgb 12.4 L Hct 35.0 L MCV 98.9 H MCH 35.0 H MCHC 35.4 RDW 12.9 Plt Count 246 MPV 9.4 Absolute Nucleated RBC 0.000 Nucleated RBC % (auto) 0.0 Neutrophils % (Manual) 62 Band Neutrophils % 1 L Lymphocytes % (Manual) 30 Monocytes % (Manual) 5 Basophils % (Manual) 1 Metamyelocytes % 1 Abs Neuts (Manual) 4.4 Lymphocytes # (Manual) 2.1 Monocytes # (Manual) 0.4 Basophils # (Manual) 0.1 Metamyelocytes # 0.1 Platelet Estimate NORMAL Plt Morphology Comment NORMAL RBC Morphology NOTED Macrocytosis 1+ (5-14) Absolute Retic 0.100 H Percent Retic 2.8 H Immature Retic Fraction 12.2 Retic Hgb Equivalent 37.9 H Sodium 137 Potassium 4.3 Chloride 104 Carbon Dioxide 25 Anion Gap 12 BUN 15 Creatinine 0.89 Estim Creat Clear Calc 66.2 Estimated GFR > 60 Random Glucose 166 H Haptoglobin 155 Calcium 9.6 Direct Bilirubin 0.3 Lactate Dehydrogenase 233 Urine Color Yellow Urine Appearance Clear Urine pH 7.5 Ur Specific [place] 1.010 Urine Protein Negative Urine Glucose (UA) Negative Urine Ketones Negative Urine Blood Negative Urine Nitrite Negative Ur Leukocyte Esterase Negative CSF Tube Number CSF Volume CSF Appearance CSF Color CSF WBC CSF RBC CSF Lymphocytes CSF Monocytes % CSF Other Cells % CSF Appearance (b) CSF Glucose CSF Total Protein CSF C.neoform/gat PCR CSF CMV DNA (PCR) CSF Enterovirus (PCR) CSF E. coli K1 (PCR) CSF H. influenzae (PCR) CSF HSV I (PCR) CSF HSV II (PCR) CSF HHV 6 (PCR) CSF L.monocytogenes PCR CSF N. meningitidis PCR CSF Parechovirus (PCR) CSF S. agalactiae (PCR) CSF S. pneumoniae (PCR) CSF VZV (PCR) Ref Lab Test Result ESDRAS, Polyspecific NEGATIVE Positive ESDRAS Work-up TNP 01/18/25 01/18/25 11:25 14:05 WBC RBC Hgb Hct MCV MCH MCHC RDW Plt Count MPV Absolute Nucleated RBC Nucleated RBC % (auto) Neutrophils % (Manual) Band Neutrophils % Lymphocytes % (Manual) Monocytes % (Manual) Basophils % (Manual) Metamyelocytes % Abs Neuts (Manual) Lymphocytes # (Manual) Monocytes # (Manual) Basophils # (Manual) Metamyelocytes # Platelet Estimate Plt Morphology Comment RBC Morphology Macrocytosis Absolute Retic Percent Retic Immature Retic Fraction Retic Hgb Equivalent Sodium Potassium Chloride Carbon Dioxide Anion Gap BUN Creatinine Estim Creat Clear Calc Estimated GFR Random Glucose Haptoglobin Calcium Direct Bilirubin Lactate Dehydrogenase Urine Color Urine Appearance Urine pH Ur Specific [place] Urine Protein Urine Glucose (UA) Urine Ketones Urine Blood Urine Nitrite Ur Leukocyte Esterase CSF Tube Number 1 4 CSF Volume 3.0 CSF Appearance CLEAR CSF Color COLORLESS CSF WBC 0 CSF RBC 2 CSF Lymphocytes 50 CSF Monocytes % 42 CSF Other Cells % 8 CSF Appearance (b) Clear, Colorless CSF Glucose 62 CSF Total Protein 29.8 CSF C.neoform/gat PCR Not Detected CSF CMV DNA (PCR) Not Detected CSF Enterovirus (PCR) Not Detected CSF E. coli K1 (PCR) Not Detected CSF H. influenzae (PCR) Not Detected CSF HSV I (PCR) Not Detected CSF HSV II (PCR) Not Detected CSF HHV 6 (PCR) Not Detected CSF L.monocytogenes PCR Not Detected CSF N. meningitidis PCR Not Detected CSF Parechovirus (PCR) Not Detected CSF S. agalactiae (PCR) Not Detected CSF S. pneumoniae (PCR) Not Detected CSF VZV (PCR) Not Detected Ref Lab Test Result Cancelled ESDRAS, Polyspecific Positive ESDRAS Work-up Imaging Radiology Impressions: ITS Impressions Brain MRI 12/15/24 09:35 IMPRESSION: Acute nonhemorrhagic ischemia involving the right precentral gyrus and left middle frontal gyrus concerning for embolic etiology. Extensive white matter disease likely related to small vessel occlusive disease. 5 mm nodular lesion, frontal horn right lateral ventricle. Malignancy cannot be excluded. Recommend IV contrast enhanced MRI brain. Global cerebral atrophy. Electronically signed by: Vincent Pandya MD 12/15/2024 10:21 AM EDT RP Lumbar Puncture Fluoroscopy 12/19/24 10:45 IMPRESSION: Successful fluoroscopic guided L3-4 interlaminar lumbar puncture. Electronically signed by: Kevin Barahona MD 12/19/2024 12:36 PM EDT RP Head/Neck CTA 12/21/24 10:29 IMPRESSION: No main cerebral artery occlusion or embolus. Irregular calcified plaque at the proximal right ICA at representing less than 50% stenosis. No dissection. Probable 2 mm aneurysm, right A2 segment. This critical test result is communicated to: Electronically signed by: Vincent Pandya MD 12/21/2024 12:02 PM EDT RP Chest X-Ray 01/12/25 11:15 IMPRESSION: No acute disease. Hiatal hernia involving stomach fundus. Electronically signed by: Mario Gutiérrez MD 01/12/2025 11:28 AM EDT RP Medications Medications Current Medications Acetaminophen (Acetaminophen 325 Mg Tablet) 650 mg PO Q6H PRN PRN Reason: Headache/Pain, Scale 1-10 Al Hydroxide/Mg Hydroxide (Magnesium Hydrox/Alum Hydrox 30 Ml Oral.Susp) 30 ml PO Q6H PRN PRN Reason: Heartburn/Nausea Alprazolam (Alprazolam 0.25 Mg Tablet) 0.125 mg PO TID PRN PRN Reason: Anxiety Last Admin: 01/16/25 08:45 Dose: 0.125 mg Amlodipine Besylate (Amlodipine Besylate 10 Mg Tablet) 10 mg PO BEDTIME OTILIA; Protocol Last Admin: 01/18/25 20:05 Dose: 10 mg Aspirin (Aspirin Enteric Coated 81 Mg Tablet.) 81 mg PO BEDTIME OTILIA Last Admin: 01/18/25 20:06 Dose: 81 mg Atorvastatin Calcium (Atorvastatin Calcium 40 Mg Tablet) 40 mg PO BEDTIME OTILIA Last Admin: 01/18/25 20:06 Dose: 40 mg Clonidine HCl (Clonidine Hcl 0.1 Mg Tablet) 0.1 mg PO BID PRN; Protocol PRN Reason: severe anxiety Last Admin: 12/18/24 20:33 Dose: 0.1 mg Divalproex Sodium (Divalproex Sodium Sprinkles 125 Mg Cap.) 250 mg PO TID OTILIA Last Admin: 01/19/25 15:10 Dose: 250 mg Finasteride (Finasteride 5 Mg Tablet) 5 mg PO DAILY OTILIA Last Admin: 01/19/25 08:42 Dose: 5 mg Hydralazine HCl (Hydralazine Hcl 25 Mg Tablet) 25 mg PO TID OTILIA; Protocol Last Admin: 01/19/25 15:10 Dose: 25 mg Lactase (Lactase Tablet) 1 tab PO TIDAC OTILIA Last Admin: 01/19/25 15:10 Dose: 1 tab Loperamide HCl (Loperamide Hcl 2 Mg Capsule) 2 mg PO Q6H PRN PRN Reason: Diarrhea Losartan Potassium (Losartan Potassium 50 Mg Tablet) 100 mg PO DAILY OTILIA; Protocol Last Admin: 01/19/25 08:43 Dose: 100 mg Magnesium Hydroxide (Milk Of Magnesia 30 Ml Oral.Susp) 30 ml PO DAILY PRN PRN Reason: Constipation Last Admin: 12/19/24 21:38 Dose: 30 ml Melatonin (Melatonin 3 Mg Tablet) 6 mg PO BEDTIME OTILIA Last Admin: 01/18/25 20:06 Dose: 6 mg Memantine (Memantine Hcl 5 Mg Tablet) 5 mg PO BID OTILIA Last Admin: 01/19/25 08:42 Dose: 5 mg Olanzapine (Olanzapine 2.5 Mg Tablet) 2.5 mg PO Q4H PRN PRN Reason: anxiety/restlessness Last Admin: 01/16/25 11:08 Dose: 2.5 mg Olanzapine (Olanzapine 5 Mg Tablet) 5 mg PO BEDTIME [facility] Last Admin: 01/18/25 20:06 Dose: 5 mg Olanzapine (Olanzapine 2.5 Mg Tablet) 2.5 mg PO DAILY [facility] Last Admin: 01/19/25 09:02 Dose: 2.5 mg Omeprazole (Omeprazole 20 Mg Capsule.Dr) 20 mg PO BEDTIME [facility] Last Admin: 01/18/25 20:06 Dose: 20 mg Tamsulosin HCl (Tamsulosin Hcl 0.4 Mg Capsule) 0.8 mg PO BEDTIME OTILIA Last Admin: 01/18/25 20:05 Dose: 0.8 mg Tolterodine Tartrate (Tolterodine Tartrate La 4 Mg Cap.Er.24h) 4 mg PO DAILY [facility] Last Admin: 01/19/25 08:43 Dose: 4 mg Valacyclovir HCl (Valacyclovir Hcl 500 Mg Tablet) 500 mg PO DAILY [facility] Last Admin: 01/19/25 08:42 Dose: 500 mg Allergies Allergies Allergy/AdvReac Type Severity Reaction Status Date / Time No Known Allergies Allergy Verified 12/16/24 19:54 Assessment & Plan Assessment & Plan (1) Encephalopathy: Qualifiers: Encephalopathy type: unspecified encephalopathy Qualified Code(s): G93.40 - Encephalopathy, unspecified Status: Acute Code(s): G93.40 - Encephalopathy, unspecified Assessment and Plan: 74 years old man with multifactorial neuropsychiatric syndrome. Psychotic symptoms have appeared during last few months and other than vascular disease and cerebral degeneration, no obvious etiology has been confirmed. EEG did not reveal any epileptic discharge. Laboratories so far have been negative including test for CJD. Plan is to have another sample of CSF and sent for routine CSF studies and autoimmune encephalitis panel. Until then, symptomatic conservative management continuous. Plan Assessment and Plan Patient with ongoing obsessional thoughts intense pressured speech racing thoughts. Mirtazapine 7.5 mg at bedtime see if help with insomnia and obsessional anxiety continue olanzapine 5 mg at bedtime with a 2.5 mg prn targeting agitation obsessional thoughts anxiety. Still do not have results from lumbar puncture which may suggest other causes besides vascular brain changes the patient's symptoms 12/25/24: Increase Depakote to 375 mg BID. 12/26: aware his mood is labile, agrees to increase VPA dosing to 500 BID. hyperverbal, anxious. 12/27/2024 Patient continues hyperverbal limited reasoning and executive function hard for him to stay on topic. Check Depakote level [place] pending for tomorrow then should have results regarding lumbar puncture. Increase a.m. olanzapine to 5 mg monitor gait 12/28/2024 CJD negative some improvement noted with Depakote and olanzapine less pressured improved anxiety somewhat better able to engage in linear conversation eating and drinking okay flesh pressure remains intermittently elevated will again ask hospitalist service to look at this has been difficult to control Further labs from lumbar puncture pending d/c planning 12/30/2024: No changes in current management plan and note some test results still pending from lumbar puncture 12/31: no changes Reason for continued inpatient stay Substantial Risk for rapid decompensation 01/01/25 Pt with some inc ability to think reason case reviewed with neurology no exact dx vascular plus degenerative? consider namenda 01/02/2025 Patient is still pending some labs neurology does not feel this is infectious or paraneoplastic. Looking at discharge to protected environment Case discussed with brother extensively reviewed option of Namenda mention consideration of the [facility] 01/03/2025 Case reviewed with neurology and discussed still unclear diagnosis and patient's mental status remains severely impaired. Discussion held regarding possibility of transferred to [facility] later neurologist felt we should wait and see if amyloid studies come back positive and healthcare proxy Sai did have a discussion with Dr. López regarding above possibility. Consideration could be given to attempt at PET scan amyloid PET scan at some point neurologist felt only AYAD Remy blood work was positive. Discussed option of Namenda will start tomorrow monitor for any adverse effects hopefully may help with cognition and behavioral issues 01/04/2025 Start Namenda 5 mg daily referral process started regarding [facility] case reviewed with neurology and with healthcare proxy. Continue Depakote olanz patient has apine seems somewhat helpful in decreasing agitation irritability and anxiety. Still pending results from amyloid Regarding hypertension in better control also being followed by hospitalist service 01/05/25 Patient's case reviewed with treatment team reviewed with healthcare proxy. Patient has been referred [facility] they only have emergency meds for surgery extensive material sent case distress discussed with transfer team Deborah oneal are still pending results from amyloid and tau testing patient has been more lethargic remains on olanzapine b.i.d. and Depakote 500 b.i.d.. Will lower morning olanzapine 01/08/2025 [facility] again denies transfer stating they will only take acute surgical patient's to neurology or acute stroke. Case reviewed with Dr. López regularly from Neurology. Seems to be getting more confused increase Namenda to 5 b.i.d. lower Depakote 250 b.i.d. as tolerated pending Alzheimer screening results 01/09/25 Referrals to [facility] but refusing transfer. pt neg blood work for tau and amyloid. Pt on dec depakote in case worsening confusion. Pt unabe to participate in linear planning except for shot periods. Episodes of severe anxiety. 01/10/2025 Case reviewed with healthcare proxy as a neurologist in [place] he would like to speak to patient does have power of real estate attorney who is not patient's brother. Patient has been accepted in tense living situation no focal findings no seizure activity blood pressure in better control generally patient maintaining nutrition has been getting somewhat more anxious and dysphoric not understanding why he is here 01/11/2025 Issues clarified with hospital real estate attorney regarding assisted living working with patient's [id number] and will also continue working with John patient's brother and healthcare proxy. Patient increasingly irritable distraught increase Namenda as tolerated Depakote has been lowered alprazolam 0.125 mg PO TID 01/12/2025 Patient on water restriction with hyponatremia question Depakote now at250 t.i.d. olanzapine b.i.d. alprazolam 0.125 mg t.i.d. p.r.n.. Recheck sodium electrolytes in the morning will recheck EEG on 922 recommended by outside Neurology by healthcare proxy however unable to do serial EEG for 3-7 days at this point. Continue Namenda discharge plan hopefully to the [facility] 01/13: Continue current management and treatment plan. 01/14: continue current management and treatment plan. 01/15 Case reviewed with neurology EEG ordered rule out and MD receptor encephalitis rule out partial complex status Hematocrit decreasing check for stool guaiac check iron studies Continue treating antihypertensive with antihypertensives Monitor sodium 01/16 Patient's mood significantly anxious ruminating. Case extensively discussed with neurology Dr. López and with healthcare proxy. Patient markers for autoimmune encephalitis and CSF were not able to be completed and will need repeat lumbar puncture per neurology this policy writer typist also agrees and case discussed with healthcare proxy who agrees with repeat LP. Patient noted to have positive blood in his stool and diarrhea. Hospitalist service will follow-up and will most likely need to be seen by Gastroenterology. Iron studies completed. Monitor CBC hyponatremia has normalized patient may have been taking in excess fluids. Discharge planning continues patient scheduled when stable to go to the [facility] having a very difficult time with this transition 01/18/25 Pt with significant anxiety rumination results from LP not yet back has alprazolam prn olanzapine depakote not stabilizing anxiety case reviewed extensively with hcp pt pending placement at [facility] 01/19/25 pt pending extensive csf panel ? start low dose escitalopram obsessional anxiety q1 Reason for continued inpatient stay Substantial Risk for: inability to function, rapid decompensation and med/psych decompensation Time Spent With Patient Time: Total time managing care of this patient today ____ minutes.
[2025-01-19 20:00] VITALS: BP 145/68; PULSE 65; RESP 16; TEMP 36.6; O2SAT 92
[2025-01-19] MEDS: Aspirin Enteric Coated 81 MG TABLET.DR PO (20:18)
[2025-01-20 07:50] VITALS: BP 145/67; PULSE 66; RESP 18; TEMP 36.2; O2SAT 95
[2025-01-20] MEDS: Divalproex Sodium Sprinkles 125 MG CAP.DR.SPR 250 MG PO ×3 (08:04→20:55)
[2025-01-20 14:33] VITALS: BP 98/61
--- NOTE | 2025-01-20 19:30 | HO.PSYCHPN ---
Subjective Subjective Date of Service: 01/20/25 Reason For Visit: confusion agitation Interim History: disorganized repetitive, very poor attention. asking about discharge, if his car is ready. per staff, no change in presentation. hyperverbal, disorganized. Mental Status Exam Mental Status Exam Narrative: Appearance: Casually dressed, adequate hygiene Behavior agitated anxious ruminating Speech: Normal volume and prosody, Thought process: Disorganized, tangential Thought content: rambling Mood: anxious Affect: labile anxious SI:denies HI:denies VH/AH:none Delusions: possible Insight/judgment: Impaired insight and judgment Memory/cog: Alert, oriented x 2. grossly intact to conversational testing Diagnostics Vital Signs (24Hr): Vital Signs - 24 hr 01/19/25 20:00 01/20/25 07:50 01/20/25 14:33 Temperature 98 F 97.2 F Pulse Rate 65 66 Respiratory Rate 16 18 Blood Pressure 145/68 H 145/67 H 98/61 Pulse Oximetry 92 95 Oxygen Delivery Method Room Air Room Air BMI result Body Mass Index 21.1 Labs 01/17/25 17:29 01/17/25 17:29 Imaging Radiology Impressions: ITS Impressions Brain MRI 12/15/24 09:35 IMPRESSION: Acute nonhemorrhagic ischemia involving the right precentral gyrus and left middle frontal gyrus concerning for embolic etiology. Extensive white matter disease likely related to small vessel occlusive disease. 5 mm nodular lesion, frontal horn right lateral ventricle. Malignancy cannot be excluded. Recommend IV contrast enhanced MRI brain. Global cerebral atrophy. Electronically signed by: Vincent Pandya MD 12/15/2024 10:21 AM EDT RP Lumbar Puncture Fluoroscopy 12/19/24 10:45 IMPRESSION: Successful fluoroscopic guided L3-4 interlaminar lumbar puncture. Electronically signed by: Kevin Barahona MD 12/19/2024 12:36 PM EDT RP Head/Neck CTA 12/21/24 10:29 IMPRESSION: No main cerebral artery occlusion or embolus. Irregular calcified plaque at the proximal right ICA at representing less than 50% stenosis. No dissection. Probable 2 mm aneurysm, right A2 segment. This critical test result is communicated to: Electronically signed by: Vincent Pandya MD 12/21/2024 12:02 PM EDT RP Chest X-Ray 01/12/25 11:15 IMPRESSION: No acute disease. Hiatal hernia involving stomach fundus. Electronically signed by: Mario Gutiérrez MD 01/12/2025 11:28 AM EDT RP Medications Medications Current Medications Acetaminophen (Acetaminophen 325 Mg Tablet) 650 mg PO Q6H PRN PRN Reason: Headache/Pain, Scale 1-10 Al Hydroxide/Mg Hydroxide (Magnesium Hydrox/Alum Hydrox 30 Ml Oral.Susp) 30 ml PO Q6H PRN PRN Reason: Heartburn/Nausea Alprazolam (Alprazolam 0.25 Mg Tablet) 0.125 mg PO TID PRN PRN Reason: Anxiety Last Admin: 01/16/25 08:45 Dose: 0.125 mg Alprazolam (Alprazolam 0.25 Mg Tablet) 0.125 mg PO TID OTILIA Last Admin: 01/20/25 14:33 Dose: 0.125 mg Amlodipine Besylate (Amlodipine Besylate 10 Mg Tablet) 10 mg PO BEDTIME OTILIA; Protocol Last Admin: 01/19/25 20:18 Dose: 10 mg Aspirin (Aspirin Enteric Coated 81 Mg Tablet.) 81 mg PO BEDTIME OTILIA Last Admin: 01/19/25 20:18 Dose: 81 mg Atorvastatin Calcium (Atorvastatin Calcium 40 Mg Tablet) 40 mg PO BEDTIME OTILIA Last Admin: 01/19/25 20:19 Dose: 40 mg Clonidine HCl (Clonidine Hcl 0.1 Mg Tablet) 0.1 mg PO BID PRN; Protocol PRN Reason: severe anxiety Last Admin: 12/18/24 20:33 Dose: 0.1 mg Divalproex Sodium (Divalproex Sodium Sprinkles 125 Mg ) 250 mg PO TID OTILIA Last Admin: 01/20/25 14:33 Dose: 250 mg Finasteride (Finasteride 5 Mg Tablet) 5 mg PO DAILY OTILIA Last Admin: 01/20/25 08:04 Dose: 5 mg Hydralazine HCl (Hydralazine Hcl 25 Mg Tablet) 25 mg PO TID OTILIA; Protocol Last Admin: 01/20/25 14:33 Dose: 25 mg Lactase (Lactase Tablet) 1 tab PO TIDAC OTILIA Last Admin: 01/20/25 15:58 Dose: 1 tab Loperamide HCl (Loperamide Hcl 2 Mg Capsule) 2 mg PO Q6H PRN PRN Reason: Diarrhea Losartan Potassium (Losartan Potassium 50 Mg Tablet) 100 mg PO DAILY [facility]; Protocol Last Admin: 01/20/25 08:04 Dose: 100 mg Magnesium Hydroxide (Milk Of Magnesia 30 Ml Oral.Susp) 30 ml PO DAILY PRN PRN Reason: Constipation Last Admin: 12/19/24 21:38 Dose: 30 ml Melatonin (Melatonin 3 Mg Tablet) 6 mg PO BEDTIME [facility] Last Admin: 01/19/25 20:17 Dose: 6 mg Memantine (Memantine Hcl 5 Mg Tablet) 5 mg PO BID [facility] Last Admin: 01/20/25 08:05 Dose: 5 mg Olanzapine (Olanzapine 2.5 Mg Tablet) 2.5 mg PO Q4H PRN PRN Reason: anxiety/restlessness Last Admin: 01/16/25 11:08 Dose: 2.5 mg Olanzapine (Olanzapine 5 Mg Tablet) 5 mg PO BEDTIME OTILIA Last Admin: 01/19/25 20:18 Dose: 5 mg Olanzapine (Olanzapine 2.5 Mg Tablet) 2.5 mg PO DAILY [facility] Last Admin: 01/20/25 08:05 Dose: 2.5 mg Omeprazole (Omeprazole 20 Mg Capsule.Dr) 20 mg PO BEDTIME OTILIA Last Admin: 01/19/25 20:19 Dose: 20 mg Tamsulosin HCl (Tamsulosin Hcl 0.4 Mg Capsule) 0.8 mg PO BEDTIME OTILIA Last Admin: 01/19/25 20:19 Dose: 0.8 mg Tolterodine Tartrate (Tolterodine Tartrate La 4 Mg Cap.Er.24h) 4 mg PO DAILY [facility] Last Admin: 01/20/25 08:05 Dose: 4 mg Valacyclovir HCl (Valacyclovir Hcl 500 Mg Tablet) 500 mg PO DAILY [facility] Last Admin: 01/20/25 08:03 Dose: 500 mg Allergies Allergies Allergy/AdvReac Type Severity Reaction Status Date / Time No Known Allergies Allergy Verified 12/16/24 19:54 Assessment & Plan Assessment & Plan (1) Encephalopathy: Qualifiers: Encephalopathy type: unspecified encephalopathy Qualified Code(s): G93.40 - Encephalopathy, unspecified Status: Acute Code(s): G93.40 - Encephalopathy, unspecified Assessment and Plan: 74 years old man with multifactorial neuropsychiatric syndrome. Psychotic symptoms have appeared during last few months and other than vascular disease and cerebral degeneration, no obvious etiology has been confirmed. EEG did not reveal any epileptic discharge. Laboratories so far have been negative including test for CJD. Plan is to have another sample of CSF and sent for routine CSF studies and autoimmune encephalitis panel. Until then, symptomatic conservative management continuous. Plan Assessment and Plan Patient with ongoing obsessional thoughts intense pressured speech racing thoughts. Mirtazapine 7.5 mg at bedtime see if help with insomnia and obsessional anxiety continue olanzapine 5 mg at bedtime with a 2.5 mg prn targeting agitation obsessional thoughts anxiety. Still do not have results from lumbar puncture which may suggest other causes besides vascular brain changes the patient's symptoms 12/25/24: Increase Depakote to 375 mg BID. 12/26: aware his mood is labile, agrees to increase VPA dosing to 500 BID. hyperverbal, anxious. 12/27/2024 Patient continues hyperverbal limited reasoning and executive function hard for him to stay on topic. Check Depakote level [place] pending for tomorrow then should have results regarding lumbar puncture. Increase a.m. olanzapine to 5 mg monitor gait 12/28/2024 CJD negative some improvement noted with Depakote and olanzapine less pressured improved anxiety somewhat better able to engage in linear conversation eating and drinking okay flesh pressure remains intermittently elevated will again ask hospitalist service to look at this has been difficult to control Further labs from lumbar puncture pending d/c planning 12/30/2024: No changes in current management plan and note some test results still pending from lumbar puncture 12/31: no changes Reason for continued inpatient stay Substantial Risk for rapid decompensation 01/01/25 Pt with some inc ability to think reason case reviewed with neurology no exact dx vascular plus degenerative? consider namenda 01/02/2025 Patient is still pending some labs neurology does not feel this is infectious or paraneoplastic. Looking at discharge to protected environment Case discussed with brother extensively reviewed option of Namenda mention consideration of the [place] 01/03/2025 Case reviewed with neurology and discussed still unclear diagnosis and patient's mental status remains severely impaired. Discussion held regarding possibility of transferred to [facility] neurologist felt we should wait and see if amyloid studies come back positive and healthcare proxy Sai did have a discussion with Dr. López regarding above possibility. Consideration could be given to attempt at PET scan amyloid PET scan at some point neurologist felt only AYAD Remy blood work was positive. Discussed option of Namenda will start tomorrow monitor for any adverse effects hopefully may help with cognition and behavioral issues 01/04/2025 Start Namenda 5 mg daily referral process started regarding [facility] case reviewed with neurology and with healthcare proxy. Continue Depakote olanz patient has apine seems somewhat helpful in decreasing agitation irritability and anxiety. Still pending results from amyloid Regarding hypertension in better control also being followed by hospitalist service 01/05/25 Patient's case reviewed with treatment team reviewed with healthcare proxy. Patient has been referred to [facility] they only have emergency meds for surgery extensive material sent case distress discussed with transfer team Deborah oneal are still pending results from amyloid and tau testing patient has been more lethargic remains on olanzapine b.i.d. and Depakote 500 b.i.d.. Will lower morning olanzapine 01/08/2025 [facility] again denies transfer stating they will only take acute surgical patient's to neurology or acute stroke. Case reviewed with Dr. López regularly from Neurology. Seems to be getting more confused increase Namenda to 5 b.i.d. lower Depakote 250 b.i.d. as tolerated pending Alzheimer screening results 01/09/25 Referrals to [facility] but refusing transfer. pt neg blood work for tau and amyloid. Pt on dec depakote in case worsening confusion. Pt unabe to participate in linear planning except for shot periods. Episodes of severe anxiety. 01/10/2025 Case reviewed with healthcare proxy as a neurologist in [place] he would like to speak to patient does have power of claims attorney who is not patient's brother. Patient has been accepted in tense living situation no focal findings no seizure activity blood pressure in better control generally patient maintaining nutrition has been getting somewhat more anxious and dysphoric not understanding why he is here 01/11/2025 Issues clarified with hospital claims attorney regarding assisted living working with patient's [id number] and will also continue working with John patient's brother and healthcare proxy. Patient increasingly irritable distraught increase Namenda as tolerated Depakote has been lowered alprazolam 0.125 mg PO TID 01/12/2025 Patient on water restriction with hyponatremia question Depakote now at250 t.i.d. olanzapine b.i.d. alprazolam 0.125 mg t.i.d. p.r.n.. Recheck sodium electrolytes in the morning will recheck EEG on 922 recommended by outside Neurology by healthcare proxy however unable to do serial EEG for 3-7 days at this point. Continue Namenda discharge plan hopefully to the [facility] 01/13: Continue current management and treatment plan. 01/14: continue current management and treatment plan. 01/15 Case reviewed with neurology EEG ordered rule out and MD receptor encephalitis rule out partial complex status Hematocrit decreasing check for stool guaiac check iron studies Continue treating antihypertensive with antihypertensives Monitor sodium 01/16 Patient's mood significantly anxious ruminating. Case extensively discussed with neurology Dr. López and with healthcare proxy. Patient markers for autoimmune encephalitis and CSF were not able to be completed and will need repeat lumbar puncture per neurology this staff writer also agrees and case discussed with healthcare proxy who agrees with repeat LP. Patient noted to have positive blood in his stool and diarrhea. Hospitalist service will follow-up and will most likely need to be seen by Gastroenterology. Iron studies completed. Monitor CBC hyponatremia has normalized patient may have been taking in excess fluids. Discharge planning continues patient scheduled when stable to go to the [facility] having a very difficult time with this transition 01/18/25 Pt with significant anxiety rumination results from LP not yet back has alprazolam prn olanzapine depakote not stabilizing anxiety case reviewed extensively with hcp pt pending placement at [facility] 01/20: stably disorganized and hyperverbal. very poor attention. continue current mgmt for now. q1 Reason for continued inpatient stay Substantial Risk for: inability to function Time Spent With Patient Time: Total time managing care of this patient today ____ minutes.
[2025-01-20 20:00] VITALS: BP 134/84; PULSE 64; RESP 16; TEMP 36.7; O2SAT 94
[2025-01-20] MEDS: Aspirin Enteric Coated 81 MG TABLET.DR PO (20:56)
[2025-01-21 08:00] VITALS: BP 128/64; PULSE 68; RESP 18; TEMP 36.4; O2SAT 95
[2025-01-21] MEDS: Divalproex Sodium Sprinkles 125 MG CAP.DR.SPR 250 MG PO ×3 (08:13→19:54)
[2025-01-21 14:21] VITALS: BP 123/67
--- NOTE | 2025-01-21 15:02 | HO.PSYCHPN ---
Subjective Subjective Date of Service: 01/21/25 Reason For Visit: confusion agitation Interim History: disorganized. slightly irritable. unable to engage in any productive discussion due to poor attention and disorganization. per staff, sleeping. pressured, intrusive, disorganized. Mental Status Exam Mental Status Exam Narrative: Appearance: Casually dressed, adequate hygiene Behavior agitated anxious ruminating Speech: Normal volume and prosody, Thought process: Disorganized, tangential Thought content: rambling Mood: anxious Affect: labile anxious SI:denies HI:denies VH/AH:none Delusions: possible Insight/judgment: Impaired insight and judgment Memory/cog: Alert, oriented x 2. grossly intact to conversational testing Diagnostics Vital Signs (24Hr): Vital Signs - 24 hr 01/20/25 20:00 01/21/25 08:00 01/21/25 14:21 Temperature 98.1 F 97.6 F Pulse Rate 64 68 Respiratory Rate 16 18 Blood Pressure 134/84 128/64 123/67 Pulse Oximetry 94 95 Oxygen Delivery Method Room Air Room Air BMI result Body Mass Index 21.1 Labs 01/17/25 17:29 01/17/25 17:29 Imaging Radiology Impressions: ITS Impressions Brain MRI 12/15/24 09:35 IMPRESSION: Acute nonhemorrhagic ischemia involving the right precentral gyrus and left middle frontal gyrus concerning for embolic etiology. Extensive white matter disease likely related to small vessel occlusive disease. 5 mm nodular lesion, frontal horn right lateral ventricle. Malignancy cannot be excluded. Recommend IV contrast enhanced MRI brain. Global cerebral atrophy. Electronically signed by: Vincent Pandya MD 12/15/2024 10:21 AM EDT Lumbar Puncture Fluoroscopy 12/19/24 10:45 IMPRESSION: Successful fluoroscopic guided L3-4 interlaminar lumbar puncture. Electronically signed by: Kevin Barahona MD 12/19/2024 12:36 PM EDT RP Head/Neck CTA 12/21/24 10:29 IMPRESSION: No main cerebral artery occlusion or embolus. Irregular calcified plaque at the proximal right ICA at representing less than 50% stenosis. No dissection. Probable 2 mm aneurysm, right A2 segment. This critical test result is communicated to: Electronically signed by: Vincent Pandya MD 12/21/2024 12:02 PM EDT RP Chest X-Ray 01/12/25 11:15 IMPRESSION: No acute disease. Hiatal hernia involving stomach fundus. Electronically signed by: Mario Gutiérrez MD 01/12/2025 11:28 AM EDT RP Medications Medications Current Medications Acetaminophen (Acetaminophen 325 Mg Tablet) 650 mg PO Q6H PRN PRN Reason: Headache/Pain, Scale 1-10 Al Hydroxide/Mg Hydroxide (Magnesium Hydrox/Alum Hydrox 30 Ml Oral.Susp) 30 ml PO Q6H PRN PRN Reason: Heartburn/Nausea Alprazolam (Alprazolam 0.25 Mg Tablet) 0.125 mg PO TID PRN PRN Reason: Anxiety Last Admin: 01/16/25 08:45 Dose: 0.125 mg Alprazolam (Alprazolam 0.25 Mg Tablet) 0.125 mg PO TID OTILIA Last Admin: 01/21/25 14:22 Dose: 0.125 mg Amlodipine Besylate (Amlodipine Besylate 10 Mg Tablet) 10 mg PO BEDTIME OTILIA; Protocol Last Admin: 01/20/25 20:56 Dose: 10 mg Aspirin (Aspirin Enteric Coated 81 Mg Tablet.) 81 mg PO BEDTIME OTILIA Last Admin: 01/20/25 20:56 Dose: 81 mg Atorvastatin Calcium (Atorvastatin Calcium 40 Mg Tablet) 40 mg PO BEDTIME OTILIA Last Admin: 01/20/25 20:55 Dose: 40 mg Clonidine HCl (Clonidine Hcl 0.1 Mg Tablet) 0.1 mg PO BID PRN; Protocol PRN Reason: severe anxiety Last Admin: 12/18/24 20:33 Dose: 0.1 mg Divalproex Sodium (Divalproex Sodium Sprinkles 125 Mg ) 250 mg PO TID OTILIA Last Admin: 01/21/25 14:21 Dose: 250 mg Finasteride (Finasteride 5 Mg Tablet) 5 mg PO DAILY OTILIA Last Admin: 01/21/25 08:13 Dose: 5 mg Hydralazine HCl (Hydralazine Hcl 25 Mg Tablet) 25 mg PO TID OTILIA; Protocol Last Admin: 01/21/25 14:21 Dose: 25 mg Lactase (Lactase Tablet) 1 tab PO TIDAC [facility] Last Admin: 01/21/25 11:16 Dose: 1 tab Loperamide HCl (Loperamide Hcl 2 Mg Capsule) 2 mg PO Q6H PRN PRN Reason: Diarrhea Losartan Potassium (Losartan Potassium 50 Mg Tablet) 100 mg PO DAILY [facility]; Protocol Last Admin: 01/21/25 08:14 Dose: 100 mg Magnesium Hydroxide (Milk Of Magnesia 30 Ml Oral.Susp) 30 ml PO DAILY PRN PRN Reason: Constipation Last Admin: 12/19/24 21:38 Dose: 30 ml Melatonin (Melatonin 3 Mg Tablet) 6 mg PO BEDTIME OTILIA Last Admin: 01/20/25 20:55 Dose: 6 mg Memantine (Memantine Hcl 5 Mg Tablet) 5 mg PO BID [facility] Last Admin: 01/21/25 08:14 Dose: 5 mg Olanzapine (Olanzapine 2.5 Mg Tablet) 2.5 mg PO Q4H PRN PRN Reason: anxiety/restlessness Last Admin: 01/16/25 11:08 Dose: 2.5 mg Olanzapine (Olanzapine 5 Mg Tablet) 5 mg PO BEDTIME OTILIA Last Admin: 01/20/25 20:54 Dose: 5 mg Olanzapine (Olanzapine 2.5 Mg Tablet) 2.5 mg PO DAILY [facility] Last Admin: 01/21/25 08:14 Dose: 2.5 mg Omeprazole (Omeprazole 20 Mg Capsule.Dr) 20 mg PO BEDTIME [facility] Last Admin: 01/20/25 20:56 Dose: 20 mg Tamsulosin HCl (Tamsulosin Hcl 0.4 Mg Capsule) 0.8 mg PO BEDTIME OTILIA Last Admin: 01/20/25 20:55 Dose: 0.8 mg Tolterodine Tartrate (Tolterodine Tartrate La 4 Mg Cap.Er.24h) 4 mg PO DAILY [facility] Last Admin: 01/21/25 08:14 Dose: 4 mg Valacyclovir HCl (Valacyclovir Hcl 500 Mg Tablet) 500 mg PO DAILY [facility] Last Admin: 01/21/25 08:13 Dose: 500 mg Allergies Allergies Allergy/AdvReac Type Severity Reaction Status Date / Time No Known Allergies Allergy Verified 12/16/24 19:54 Assessment & Plan Assessment & Plan (1) Encephalopathy: Qualifiers: Encephalopathy type: unspecified encephalopathy Qualified Code(s): G93.40 - Encephalopathy, unspecified Status: Acute Code(s): G93.40 - Encephalopathy, unspecified Assessment and Plan: 74 years old man with multifactorial neuropsychiatric syndrome. Psychotic symptoms have appeared during last few months and other than vascular disease and cerebral degeneration, no obvious etiology has been confirmed. EEG did not reveal any epileptic discharge. Laboratories so far have been negative including test for CJD. Plan is to have another sample of CSF and sent for routine CSF studies and autoimmune encephalitis panel. Until then, symptomatic conservative management continuous. Plan Assessment and Plan Patient with ongoing obsessional thoughts intense pressured speech racing thoughts. Mirtazapine 7.5 mg at bedtime see if help with insomnia and obsessional anxiety continue olanzapine 5 mg at bedtime with a 2.5 mg prn targeting agitation obsessional thoughts anxiety. Still do not have results from lumbar puncture which may suggest other causes besides vascular brain changes the patient's symptoms 12/25/24: Increase Depakote to 375 mg BID. 12/26: aware his mood is labile, agrees to increase VPA dosing to 500 BID. hyperverbal, anxious. 12/27/2024 Patient continues hyperverbal limited reasoning and executive function hard for him to stay on topic. Check Depakote level [place] pending for tomorrow then should have results regarding lumbar puncture. Increase a.m. olanzapine to 5 mg monitor gait 12/28/2024 CJD negative some improvement noted with Depakote and olanzapine less pressured improved anxiety somewhat better able to engage in linear conversation eating and drinking okay flesh pressure remains intermittently elevated will again ask hospitalist service to look at this has been difficult to control Further labs from lumbar puncture pending d/c planning 12/30/2024: No changes in current management plan and note some test results still pending from lumbar puncture 12/31: no changes Reason for continued inpatient stay Substantial Risk for rapid decompensation 01/01/25 Pt with some inc ability to think reason case reviewed with neurology no exact dx vascular plus degenerative? consider namenda 01/02/2025 Patient is still pending some labs neurology does not feel this is infectious or paraneoplastic. Looking at discharge to protected environment Case discussed with brother extensively reviewed option of Namenda mention consideration of the [place] 01/03/2025 Case reviewed with neurology and discussed still unclear diagnosis and patient's mental status remains severely impaired. Discussion held regarding possibility of transferred to [facility] neurologist felt we should wait and see if amyloid studies come back positive and healthcare proxy Sai did have a discussion with Dr. López regarding above possibility. Consideration could be given to attempt at PET scan amyloid PET scan at some point neurologist felt only AYAD Remy blood work was positive. Discussed option of Namenda will start tomorrow monitor for any adverse effects hopefully may help with cognition and behavioral issues 01/04/2025 Start Namenda 5 mg daily referral process started regarding [facility] case reviewed with neurology and with healthcare proxy. Continue Depakote olanz patient has apine seems somewhat helpful in decreasing agitation irritability and anxiety. Still pending results from amyloid Regarding hypertension in better control also being followed by hospitalist service 01/05/25 Patient's case reviewed with treatment team reviewed with healthcare proxy. Patient has been referred to [facility] they only have emergency meds for surgery extensive material sent case distress discussed with transfer team Deborah oneal are still pending results from amyloid and tau testing patient has been more lethargic remains on olanzapine b.i.d. and Depakote 500 b.i.d.. Will lower morning olanzapine 01/08/2025 [facility] again denies transfer stating they will only take acute surgical patient's to neurology or acute stroke. Case reviewed with Dr. López regularly from Neurology. Seems to be getting more confused increase Namenda to 5 b.i.d. lower Depakote 250 b.i.d. as tolerated pending Alzheimer screening results 01/09/25 Referrals to [facility] but refusing transfer. pt neg blood work for tau and amyloid. Pt on dec depakote in case worsening confusion. Pt unabe to participate in linear planning except for shot periods. Episodes of severe anxiety. 01/10/2025 Case reviewed with healthcare proxy as a neurologist in [place] he would like to speak to patient does have power of ip technology transactions attorney who is not patient's brother. Patient has been accepted in tense living situation no focal findings no seizure activity blood pressure in better control generally patient maintaining nutrition has been getting somewhat more anxious and dysphoric not understanding why he is here 01/11/2025 Issues clarified with hospital ip technology transactions attorney regarding assisted living working with patient's [id number] and will also continue working with John patient's brother and healthcare proxy. Patient increasingly irritable distraught increase Namenda as tolerated Depakote has been lowered alprazolam 0.125 mg PO TID 01/12/2025 Patient on water restriction with hyponatremia question Depakote now at250 t.i.d. olanzapine b.i.d. alprazolam 0.125 mg t.i.d. p.r.n.. Recheck sodium electrolytes in the morning will recheck EEG on 922 recommended by outside Neurology by healthcare proxy however unable to do serial EEG for 3-7 days at this point. Continue Namenda discharge plan hopefully to the [facility] 01/13: Continue current management and treatment plan. 01/14: continue current management and treatment plan. 01/15 Case reviewed with neurology EEG ordered rule out and MD receptor encephalitis rule out partial complex status Hematocrit decreasing check for stool guaiac check iron studies Continue treating antihypertensive with antihypertensives Monitor sodium 01/16 Patient's mood significantly anxious ruminating. Case extensively discussed with neurology Dr. López and with healthcare proxy. Patient markers for autoimmune encephalitis and CSF were not able to be completed and will need repeat lumbar puncture per neurology this pattern chart writer also agrees and case discussed with healthcare proxy who agrees with repeat LP. Patient noted to have positive blood in his stool and diarrhea. Hospitalist service will follow-up and will most likely need to be seen by Gastroenterology. Iron studies completed. Monitor CBC hyponatremia has normalized patient may have been taking in excess fluids. Discharge planning continues patient scheduled when stable to go to the [facility] having a very difficult time with this transition 01/18/25 Pt with significant anxiety rumination results from LP not yet back has alprazolam prn olanzapine depakote not stabilizing anxiety case reviewed extensively with hcp pt pending placement at [facility] 01/20: stably disorganized and hyperverbal. very poor attention. continue current mgmt for now. 01/21: as for yesterday. Reason for continued inpatient stay Substantial Risk for: inability to function Time Spent With Patient Time: Total time managing care of this patient today ____ minutes.
[2025-01-21 19:50] VITALS: BP 142/79; PULSE 79; RESP 16; TEMP 36.8; O2SAT 94
[2025-01-21 19:53] VITALS: BP 142/79
[2025-01-21] MEDS: Aspirin Enteric Coated 81 MG TABLET.DR PO (19:53)
[2025-01-22 08:00] VITALS: BP 139/64; PULSE 86; RESP 18; TEMP 36.1; O2SAT 93
[2025-01-22] MEDS: Divalproex Sodium Sprinkles 125 MG CAP.DR.SPR 250 MG PO ×3 (10:10→21:44)
--- NOTE | 2025-01-22 15:28 | MHC.SLORD ---
Speech Language Pathology Order Status: ASSISTANT INVENTORY MANAGER informed DICTAPHONE TECHNICIAN lunch was already over at noon when DICTAPHONE TECHNICIAN arrived to floor. Pt observed to be preoccupied with using telephone. No concerns with pt PO tolerance reported.
[2025-01-22 16:19] VITALS: BP 128/72
--- NOTE | 2025-01-22 17:22 | P.PNPSI_ITS ---
Subjective Subjective Date of Service: 01/22/25 Reason For Visit: confusion agitation Subjective Notes: Conditional Voluntary Healthcare Proxy: Yes Interim History: Patient's case reviewed in treatment planning chart reviewed patient seen. No new data from lumbar puncture awaiting results. Patient had difficulty sleeping has been eating remains at times somewhat pressured and intrusive Medication Compliance: Yes Mental Status Exam Mental Status Exam Narrative: Appearance: Casually dressed, adequate hygiene Behavior agitated anxious ruminating Speech: Normal volume and prosody, Thought process: Disorganized, with some periods of more linear thought and need for repetition Thought content: Repetitive repeats himself focused on leaving but much more calm and conversation Mood: anxious Affect: labile anxious SI:denies HI:denies VH/AH:none Delusions: possible Insight/judgment: Impaired insight and judgment Memory/cog: Alert, oriented x 2. grossly intact to conversational testing Diagnostics Vital Signs (24Hr): Vital Signs - 24 hr 01/21/25 19:50 01/21/25 19:53 01/21/25 19:53 Temperature 98.2 F Pulse Rate 79 Respiratory Rate 16 Blood Pressure 142/79 H 142/79 H 142/79 H Pulse Oximetry 94 Oxygen Delivery Method Room Air 01/22/25 08:00 01/22/25 16:19 Temperature 97.0 F Pulse Rate 86 Respiratory Rate 18 Blood Pressure 139/64 128/72 Pulse Oximetry 93 Oxygen Delivery Method Room Air BMI result Body Mass Index 21.1 Labs 01/17/25 17:29 01/17/25 17:29 Labs: Laboratory Results - last 48 hr 01/17/25 17:30 Double Strand DNA Ab <1 Imaging Radiology Impressions: ITS Impressions Brain MRI 12/15/24 09:35 IMPRESSION: Acute nonhemorrhagic ischemia involving the right precentral gyrus and left middle frontal gyrus concerning for embolic etiology. Extensive white matter disease likely related to small vessel occlusive disease. 5 mm nodular lesion, frontal horn right lateral ventricle. Malignancy cannot be excluded. Recommend IV contrast enhanced MRI brain. Global cerebral atrophy. Electronically signed by: Vincent Pandya MD 12/15/2024 10:21 AM EDT Lumbar Puncture Fluoroscopy 12/19/24 10:45 IMPRESSION: Successful fluoroscopic guided L3-4 interlaminar lumbar puncture. Electronically signed by: Kevin Barahona MD 12/19/2024 12:36 PM EDT RP Head/Neck CTA 12/21/24 10:29 IMPRESSION: No main cerebral artery occlusion or embolus. Irregular calcified plaque at the proximal right ICA at representing less than 50% stenosis. No dissection. Probable 2 mm aneurysm, right A2 segment. This critical test result is communicated to: Electronically signed by: Vincent Pandya MD 12/21/2024 12:02 PM EDT RP Chest X-Ray 01/12/25 11:15 IMPRESSION: No acute disease. Hiatal hernia involving stomach fundus. Electronically signed by: Mario Gutiérrez MD 01/12/2025 11:28 AM EDT RP Medications Medications Current Medications Acetaminophen (Acetaminophen 325 Mg Tablet) 650 mg PO Q6H PRN PRN Reason: Headache/Pain, Scale 1-10 Al Hydroxide/Mg Hydroxide (Magnesium Hydrox/Alum Hydrox 30 Ml Oral.Susp) 30 ml PO Q6H PRN PRN Reason: Heartburn/Nausea Alprazolam (Alprazolam 0.25 Mg Tablet) 0.125 mg PO TID PRN PRN Reason: Anxiety Last Admin: 01/16/25 08:45 Dose: 0.125 mg Alprazolam (Alprazolam 0.25 Mg Tablet) 0.125 mg PO TID COUNT INCLUDES THE [facility] Last Admin: 01/22/25 16:19 Dose: 0.125 mg Amlodipine Besylate (Amlodipine Besylate 10 Mg Tablet) 10 mg PO BEDTIME COUNT INCLUDES THE [facility]; Protocol Last Admin: 01/21/25 19:53 Dose: 10 mg Aspirin (Aspirin Enteric Coated 81 Mg Tablet.Dr) 81 mg PO BEDTIME OTILIA Last Admin: 01/21/25 19:53 Dose: 81 mg Atorvastatin Calcium (Atorvastatin Calcium 40 Mg Tablet) 40 mg PO BEDTIME OTILIA Last Admin: 01/21/25 19:54 Dose: 40 mg Clonidine HCl (Clonidine Hcl 0.1 Mg Tablet) 0.1 mg PO BID PRN; Protocol PRN Reason: severe anxiety Last Admin: 12/18/24 20:33 Dose: 0.1 mg Divalproex Sodium (Divalproex Sodium Sprinkles 125 Mg ) 250 mg PO TID COUNT INCLUDES THE [facility] Last Admin: 01/22/25 16:19 Dose: 250 mg Finasteride (Finasteride 5 Mg Tablet) 5 mg PO DAILY OTILIA Last Admin: 01/22/25 10:09 Dose: 5 mg Hydralazine HCl (Hydralazine Hcl 25 Mg Tablet) 25 mg PO TID OTILIA; Protocol Last Admin: 01/22/25 16:19 Dose: 25 mg Lactase (Lactase Tablet) 1 tab PO TIDAC OTILIA Last Admin: 01/22/25 16:20 Dose: 1 tab Loperamide HCl (Loperamide Hcl 2 Mg Capsule) 2 mg PO Q6H PRN PRN Reason: Diarrhea Last Admin: 01/22/25 10:09 Dose: 2 mg Losartan Potassium (Losartan Potassium 50 Mg Tablet) 100 mg PO DAILY OTILIA; Protocol Last Admin: 01/22/25 10:09 Dose: 100 mg Magnesium Hydroxide (Milk Of Magnesia 30 Ml Oral.Susp) 30 ml PO DAILY PRN PRN Reason: Constipation Last Admin: 12/19/24 21:38 Dose: 30 ml Melatonin (Melatonin 3 Mg Tablet) 6 mg PO BEDTIME OTILIA Last Admin: 01/21/25 19:55 Dose: 6 mg Memantine (Memantine Hcl 5 Mg Tablet) 5 mg PO BID OTILIA Last Admin: 01/22/25 10:09 Dose: 5 mg Mirtazapine (Mirtazapine 7.5 Mg Tablet) 7.5 mg PO BEDTIME OTILIA Olanzapine (Olanzapine 2.5 Mg Tablet) 2.5 mg PO Q4H PRN PRN Reason: anxiety/restlessness Last Admin: 01/16/25 11:08 Dose: 2.5 mg Olanzapine (Olanzapine 5 Mg Tablet) 5 mg PO BEDTIME OTILIA Last Admin: 01/21/25 19:55 Dose: 5 mg Olanzapine (Olanzapine 2.5 Mg Tablet) 2.5 mg PO DAILY OTILIA Last Admin: 01/22/25 10:10 Dose: 2.5 mg Omeprazole (Omeprazole 20 Mg Capsule.Dr) 20 mg PO BEDTIME OTILIA Last Admin: 01/21/25 19:54 Dose: 20 mg Tamsulosin HCl (Tamsulosin Hcl 0.4 Mg Capsule) 0.8 mg PO BEDTIME OTILIA Last Admin: 01/21/25 19:54 Dose: 0.8 mg Tolterodine Tartrate (Tolterodine Tartrate La 4 Mg Cap.Er.24h) 4 mg PO DAILY OTILIA Last Admin: 01/22/25 10:09 Dose: 4 mg Valacyclovir HCl (Valacyclovir Hcl 500 Mg Tablet) 500 mg PO DAILY OTILIA Last Admin: 01/22/25 10:09 Dose: 500 mg Allergies Allergies Allergy/AdvReac Type Severity Reaction Status Date / Time No Known Allergies Allergy Verified 12/16/24 19:54 Assessment & Plan Assessment & Plan (1) Encephalopathy: Qualifiers: Encephalopathy type: unspecified encephalopathy Qualified Code(s): G 93.40 - Encephalopathy, unspecified Status: Acute Code(s): G93.40 - Encephalopathy, unspecified Assessment and Plan: 74 years old man with multifactorial neuropsychiatric syndrome. Psychotic symptoms have appeared during last few months and other than vascular disease and cerebral degeneration, no obvious etiology has been confirmed. EEG did not reveal any epileptic discharge. Laboratories so far have been negative including test for CJD. Plan is to have another sample of CSF and sent for routine CSF studies and autoimmune encephalitis panel. Until then, symptomatic conservative management continuous. Plan Assessment and Plan Patient with ongoing obsessional thoughts intense pressured speech racing thoughts. Mirtazapine 7.5 mg at bedtime see if help with insomnia and obsessional anxiety continue olanzapine 5 mg at bedtime with a 2.5 mg prn targeting agitation obsessional thoughts anxiety. Still do not have results from lumbar puncture which may suggest other causes besides vascular brain changes the patient's symptoms 12/25/24: Increase Depakote to 375 mg BID. 12/26: aware his mood is labile, agrees to increase VPA dosing to 500 BID. hyperverbal, anxious. 12/27/2024 Patient continues hyperverbal limited reasoning and executive function hard for him to stay on topic. Check Depakote level [place] pending for tomorrow then should have results regarding lumbar puncture. Increase a.m. olanzapine to 5 mg monitor gait 12/28/2024 CJD negative some improvement noted with Depakote and olanzapine less pressured improved anxiety somewhat better able to engage in linear conversation eating and drinking okay flesh pressure remains intermittently elevated will again ask hospitalist service to look at this has been difficult to control Further labs from lumbar puncture pending d/c planning 12/30/2024: No changes in current management plan and note some test results still pending from lumbar puncture 12/31: no changes Reason for continued inpatient stay Substantial Risk for rapid decompensation 01/01/25 Pt with some inc ability to think reason case reviewed with neurology no exact dx vascular plus degenerative? consider namenda 01/02/2025 Patient is still pending some labs neurology does not feel this is infectious or paraneoplastic. Looking at discharge to protected environment Case discussed with brother extensively reviewed option of Namenda mention consideration of the [facility] 01/03/2025 Case reviewed with neurology and discussed still unclear diagnosis and patient's mental status remains severely impaired. Discussion held regarding possibility of transferred to [facility] later neurologist felt we should wait and see if amyloid studies come back positive and healthcare proxy Sai did have a discussion with Dr. López regarding above possibility. Consideration could be given to attempt at PET scan amyloid PET scan at some point neurologist felt only Jonel blood work was positive. Discussed option of Namenda will start tomorrow monitor for any adverse effects hopefully may help with cognition and behavioral issues 01/04/2025 Start Namenda 5 mg daily referral process started regarding [facility] case reviewed with neurology and with healthcare proxy. Continue Depakote olanz patient has apine seems somewhat helpful in decreasing agitation irritability and anxiety. Still pending results from amyloid Regarding hypertension in better control also being followed by hospitalist service 01/05/25 Patient's case reviewed with treatment team reviewed with healthcare proxy. Patient has been referred to [facility] they only have emergency meds for surgery extensive material sent case distress discussed with transfer team Deborah oneal are still pending results from amyloid and tau testing patient has been more lethargic remains on olanzapine b.i.d. and Depakote 500 b.i.d.. Will lower morning olanzapine 01/08/2025 [facility] again denies transfer stating they will only take acute surgical patient's to neurology or acute stroke. Case reviewed with Dr. López regularly from Neurology. Seems to be getting more confused increase Namenda to 5 b.i.d. lower Depakote 250 b.i.d. as tolerated pending Alzheimer screening results 01/09/25 Referrals to [facility] but refusing transfer. pt neg blood work for tau and amyloid. Pt on dec depakote in case worsening confusion. Pt unabe to participate in linear planning except for shot periods. Episodes of severe anxiety. 01/10/2025 Case reviewed with healthcare proxy as a neurologist in [place] he would like to speak to patient does have power of tax attorney who is not patient's brother. Patient has been accepted in tense living situation no focal findings no seizure activity blood pressure in better control generally patient maintaining nutrition has been getting somewhat more anxious and dysphoric not understanding why he is here 01/11/2025 Issues clarified with hospital tax attorney regarding assisted living working with patient's [id number] and will also continue working with John patient's brother and healthcare proxy. Patient increasingly irritable distraught increase Namenda as tolerated Depakote has been lowered alprazolam 0.125 mg PO TID 01/12/2025 Patient on water restriction with hyponatremia question Depakote now at250 t.i.d. olanzapine b.i.d. alprazolam 0.125 mg t.i.d. p.r.n.. Recheck sodium electrolytes in the morning will recheck EEG on 922 recommended by outside Neurology by healthcare proxy however unable to do serial EEG for 3-7 days at this point. Continue Namenda discharge plan [facility] to [facility] 01/13: Continue current management and treatment plan. 01/14: continue current management and treatment plan. 01/15 Case reviewed with neurology EEG ordered rule out and MD receptor encephalitis rule out partial complex status Hematocrit decreasing check for stool guaiac check iron studies Continue treating antihypertensive with antihypertensives Monitor sodium 01/16 Patient's mood significantly anxious ruminating. Case extensively discussed with neurology Dr. López and with healthcare proxy. Patient markers for autoimmune encephalitis and CSF were not able to be completed and will need repeat lumbar puncture per neurology this music writer also agrees and case discussed with healthcare proxy who agrees with repeat LP. Patient noted to have positive blood in his stool and diarrhea. Hospitalist service will follow-up and will most likely need to be seen by Gastroenterology. Iron studies completed. Monitor CBC hyponatremia has normalized patient may have been taking in excess fluids. Discharge planning continues patient scheduled when stable to go to the [facility] having a very difficult time with this transition 01/18/25 Pt with significant anxiety rumination results from LP not yet back has alprazolam prn olanzapine depakote not stabilizing anxiety case reviewed extensively with hcp pt [facility] 01/19/25 pt pending extensive csf panel ? start low dose escitalopram obsessional anxiety 01/22/2025 Monitor response to mirtazapine patient benefits from repetitive reassurance seems more linear and thoughts continue Depakote olanzapine will add low-dose mirtazapine monitor response. Pending results of CSF for autoimmune and paraneoplastic panel q1 Reason for continued inpatient stay Substantial Risk for: inability to function and rapid decompensation Time Spent With Patient Time: Total time managing care of this patient today ____ minutes.
[2025-01-22 20:00] VITALS: BP 134/76; PULSE 70; RESP 16; TEMP 36.3; O2SAT 92
[2025-01-22] MEDS: Aspirin Enteric Coated 81 MG TABLET.DR PO (21:42)
[2025-01-22 21:44] VITALS: BP 134/76
[2025-01-22 21:45] VITALS: BP 134/76
[2025-01-23 07:58] VITALS: BP 106/59; PULSE 80; RESP 18; TEMP 36.3; O2SAT 92
[2025-01-23] MEDS: Divalproex Sodium Sprinkles 125 MG CAP.DR.SPR 250 MG PO ×3 (08:04→19:44)
[2025-01-23 14:28] VITALS: BP 93/56
--- NOTE | 2025-01-23 17:28 | MHC.SLORD ---
Speech Language Pathology Order Status: Patient observed at lunch at distance. Patient now joining another during meal, maintained focus on meal without excessing talking, continues to manage texture well, no choking inicidents.
[2025-01-23 19:42] VITALS: BP 152/80; PULSE 73; RESP 18; TEMP 36.8; O2SAT 92
[2025-01-23 19:44] VITALS: BP 152/80
[2025-01-23] MEDS: Aspirin Enteric Coated 81 MG TABLET.DR PO (19:45)
--- NOTE | 2025-01-23 22:56 | P.PNPSI_ITS ---
Subjective Subjective Date of Service: 01/23/25 Reason For Visit: confusion agitation Subjective Notes: Conditional Voluntary Healthcare Proxy: Yes Interim History: Patient with some decrease in disorganization. Still quite obsessional needs much reassurance and things done in a certain way over and over. Periods of gross confusion disorganization continue. Pending results from CSF continue. 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 grossly intact to conversational testing Diagnostics Vital Signs (24Hr): Vital Signs - 24 hr 01/23/25 07:58 01/23/25 14:28 01/23/25 19:42 Temperature 97.3 F 98.3 F Pulse Rate 80 73 Respiratory Rate 18 18 Blood Pressure 106/59 L 93/56 L 152/80 H Pulse Oximetry 92 92 Oxygen Delivery Method Room Air Room Air 01/23/25 19:44 01/23/25 19:44 Temperature Pulse Rate Respiratory Rate Blood Pressure 152/80 H 152/80 H Pulse Oximetry Oxygen Delivery Method BMI result Body Mass Index 21.1 Labs 01/17/25 17:29 01/24/25 07:11 Labs: Laboratory Results - last 48 hr 01/17/25 01/17/25 07:24 17:30 CSF Oligoclonal Bands Absent Double Strand DNA Ab <1 Imaging Radiology Impressions: ITS Impressions Brain MRI 12/15/24 09:35 IMPRESSION: Acute nonhemorrhagic ischemia involving the right precentral gyrus and left middle frontal gyrus concerning for embolic etiology. Extensive white matter disease likely related to small vessel occlusive disease. 5 mm nodular lesion, frontal horn right lateral ventricle. Malignancy cannot be excluded. Recommend IV contrast enhanced MRI brain. Global cerebral atrophy. Electronically signed by: Vincent Pandya MD 12/15/2024 10:21 AM EDT Lumbar Puncture Fluoroscopy 12/19/24 10:45 IMPRESSION: Successful fluoroscopic guided L3-4 interlaminar lumbar puncture. Electronically signed by: Kevin Barahona MD 12/19/2024 12:36 PM EDT RP Head/Neck CTA 12/21/24 10:29 IMPRESSION: No main cerebral artery occlusion or embolus. Irregular calcified plaque at the proximal right ICA at representing less than 50% stenosis. No dissection. Probable 2 mm aneurysm, right A2 segment. This critical test result is communicated to: Electronically signed by: Vincent Pandya MD 12/21/2024 12:02 PM EDT RP Chest X-Ray 01/12/25 11:15 IMPRESSION: No acute disease. Hiatal hernia involving stomach fundus. Electronically signed by: Mario Gutiérrez MD 01/12/2025 11:28 AM EDT RP Medications Medications Current Medications Acetaminophen (Acetaminophen 325 Mg Tablet) 650 mg PO Q6H PRN PRN Reason: Headache/Pain, Scale 1-10 Al Hydroxide/Mg Hydroxide (Magnesium Hydrox/Alum Hydrox 30 Ml Oral.Susp) 30 ml PO Q6H PRN PRN Reason: Heartburn/Nausea Alprazolam (Alprazolam 0.25 Mg Tablet) 0.125 mg PO TID [facility] Last Admin: 01/23/25 19:43 Dose: 0.125 mg Amlodipine Besylate (Amlodipine Besylate 10 Mg Tablet) 10 mg PO BEDTIME [facility]; Protocol Last Admin: 01/23/25 19:44 Dose: 10 mg Aspirin (Aspirin Enteric Coated 81 Mg Tablet.Dr) 81 mg PO BEDTIME [facility] Last Admin: 01/23/25 19:45 Dose: 81 mg Atorvastatin Calcium (Atorvastatin Calcium 40 Mg Tablet) 40 mg PO BEDTIME [facility] Last Admin: 01/23/25 19:44 Dose: 40 mg Clonidine HCl (Clonidine Hcl 0.1 Mg Tablet) 0.1 mg PO BID PRN; Protocol PRN Reason: severe anxiety Last Admin: 12/18/24 20:33 Dose: 0.1 mg Divalproex Sodium (Divalproex Sodium Sprinkles 125 Mg Cap.) 250 mg PO TID [facility] Last Admin: 01/23/25 19:44 Dose: 250 mg Finasteride (Finasteride 5 Mg Tablet) 5 mg PO DAILY [facility] Last Admin: 01/23/25 08:06 Dose: 5 mg Hydralazine HCl (Hydralazine Hcl 25 Mg Tablet) 25 mg PO TID [facility]; Protocol Last Admin: 01/23/25 19:44 Dose: 25 mg Lactase (Lactase Tablet) 1 tab PO TIDAC [facility] Last Admin: 01/23/25 17:03 Dose: 1 tab Loperamide HCl (Loperamide Hcl 2 Mg Capsule) 2 mg PO Q6H PRN PRN Reason: Diarrhea Last Admin: 01/22/25 10:09 Dose: 2 mg Losartan Potassium (Losartan Potassium 50 Mg Tablet) 100 mg PO DAILY [facility]; Protocol Last Admin: 01/23/25 08:06 Dose: 100 mg Magnesium Hydroxide (Milk Of Magnesia 30 Ml Oral.Susp) 30 ml PO DAILY PRN PRN Reason: Constipation Last Admin: 12/19/24 21:38 Dose: 30 ml Melatonin (Melatonin 3 Mg Tablet) 6 mg PO BEDTIME [facility] Last Admin: 01/23/25 19:43 Dose: 6 mg Memantine (Memantine Hcl 5 Mg Tablet) 5 mg PO BID [facility] Last Admin: 01/23/25 19:43 Dose: 5 mg Mirtazapine (Mirtazapine 7.5 Mg Tablet) 7.5 mg PO BEDTIME [facility] Last Admin: 01/23/25 19:45 Dose: 7.5 mg Olanzapine (Olanzapine 2.5 Mg Tablet) 2.5 mg PO Q4H PRN PRN Reason: anxiety/restlessness Last Admin: 01/16/25 11:08 Dose: 2.5 mg Olanzapine (Olanzapine 5 Mg Tablet) 5 mg PO BEDTIME [facility] Last Admin: 01/23/25 19:44 Dose: 5 mg Olanzapine (Olanzapine 2.5 Mg Tablet) 2.5 mg PO DAILY [facility] Last Admin: 01/23/25 08:06 Dose: 2.5 mg Omeprazole (Omeprazole 20 Mg Capsule.Dr) 20 mg PO BEDTIME [facility] Last Admin: 01/23/25 19:44 Dose: 20 mg Tamsulosin HCl (Tamsulosin Hcl 0.4 Mg Capsule) 0.8 mg PO BEDTIME [facility] Last Admin: 01/23/25 19:43 Dose: 0.8 mg Tolterodine Tartrate (Tolterodine Tartrate La 4 Mg Cap.Er.24h) 4 mg PO DAILY [facility] Last Admin: 01/23/25 08:05 Dose: 4 mg Valacyclovir HCl (Valacyclovir Hcl 500 Mg Tablet) 500 mg PO DAILY [facility] Last Admin: 01/23/25 08:04 Dose: 500 mg Allergies Allergies Allergy/AdvReac Type Severity Reaction Status Date / Time No Known Allergies Allergy Verified 12/16/24 19:54 Assessment & Plan Assessment & Plan (1) Encephalopathy: Qualifiers: Encephalopathy type: unspecified encephalopathy Qualified Code(s): G 93.40 - Encephalopathy, unspecified Status: Acute Code(s): G93.40 - Encephalopathy, unspecified Assessment and Plan: 74 years old man with multifactorial neuropsychiatric syndrome. Psychotic symptoms have appeared during last few months and other than vascular disease and cerebral degeneration, no obvious etiology has been confirmed. EEG did not reveal any epileptic discharge. Laboratories so far have been negative including test for CJD. Plan is to have another sample of CSF and sent for routine CSF studies and autoimmune encephalitis panel. Until then, symptomatic conservative management continuous. Plan Assessment and Plan Patient with ongoing obsessional thoughts intense pressured speech racing thoughts. Mirtazapine 7.5 mg at bedtime see if help with insomnia and obsessional anxiety continue olanzapine 5 mg at bedtime with a 2.5 mg prn targeting agitation obsessional thoughts anxiety. Still do not have results from lumbar puncture which may suggest other causes besides vascular brain changes the patient's symptoms 12/25/24: Increase Depakote to 375 mg BID. 12/26: aware his mood is labile, agrees to increase VPA dosing to 500 BID. hyperverbal, anxious. 12/27/2024 Patient continues hyperverbal limited reasoning and executive function hard for him to stay on topic. Check Depakote level [place] pending for tomorrow then should have results regarding lumbar puncture. Increase a.m. olanzapine to 5 mg monitor gait 12/28/2024 CJD negative some improvement noted with Depakote and olanzapine less pressured improved anxiety somewhat better able to engage in linear conversation eating and drinking okay flesh pressure remains intermittently elevated will again ask hospitalist service to look at this has been difficult to control Further labs from lumbar puncture pending d/c planning 12/30/2024: No changes in current management plan and note some test results still pending from lumbar puncture 12/31: no changes Reason for continued inpatient stay Substantial Risk for rapid decompensation 01/01/25 Pt with some inc ability to think reason case reviewed with neurology no exact dx vascular plus degenerative? consider namenda 01/02/2025 Patient is still pending some labs neurology does not feel this is infectious or paraneoplastic. Looking at discharge to protected environment Case discussed with brother extensively reviewed option of Namenda mention consideration of the [place] 01/03/2025 Case reviewed with neurology and discussed still unclear diagnosis and patient's mental status remains severely impaired. Discussion held regarding possibility of transferred to [facility] later neurologist felt we should wait and see if amyloid studies come back positive and healthcare proxy Sai did have a discussion with Dr. López regarding above possibility. Consideration could be given to attempt at PET scan amyloid PET scan at some point neurologist felt only Jonel blood work was positive. Discussed option of Namenda will start tomorrow monitor for any adverse effects hopefully may help with cognition and behavioral issues 01/04/2025 Start Namenda 5 mg daily referral process started regarding [facility] case reviewed with neurology and with healthcare proxy. Continue Depakote olanz patient has apine seems somewhat helpful in decreasing agitation irritability and anxiety. Still pending results from amyloid Regarding hypertension in better control also being followed by hospitalist service 01/05/25 Patient's case reviewed with treatment team reviewed with healthcare proxy. Patient has been referred to [facility] they only have emergency meds for surgery extensive material sent case distress discussed with transfer team Deborah oneal are still pending results from amyloid and tau testing patient has been more lethargic remains on olanzapine b.i.d. and Depakote 500 b.i.d.. Will lower morning olanzapine 01/08/2025 [facility] again denies transfer stating they will only take acute surgical patient's to neurology or acute stroke. Case reviewed with Dr. López regularly from Neurology. Seems to be getting more confused increase Namenda to 5 b.i.d. lower Depakote 250 b.i.d. as tolerated pending Alzheimer screening results 01/09/25 Referrals to [facility] but refusing transfer. pt neg blood work for tau and amyloid. Pt on dec depakote in case worsening confusion. Pt unabe to participate in linear planning except for shot periods. Episodes of severe anxiety. 01/10/2025 Case reviewed with healthcare proxy as a neurologist in [place] he would like to speak to patient does have power of auto body repairer fiberglass who is not patient's brother. Patient has been accepted in tense living situation no focal findings no seizure activity blood pressure in better control generally patient maintaining nutrition has been getting somewhat more anxious and dysphoric not understanding why he is here 01/11/2025 Issues clarified with hospital auto body repairer fiberglass regarding assisted living working with patient's [id number] and will also continue working with John patient's brother and healthcare proxy. Patient increasingly irritable distraught increase Namenda as tolerated Depakote has been lowered alprazolam 0.125 mg PO TID 01/12/2025 Patient on water restriction with hyponatremia question Depakote now at250 t.i.d. olanzapine b.i.d. alprazolam 0.125 mg t.i.d. p.r.n.. Recheck sodium electrolytes in the morning will recheck EEG on 922 recommended by outside Neurology by healthcare proxy however unable to do serial EEG for 3-7 days at this point. Continue Namenda discharge plan hopefully to the [facility] 01/13: Continue current management and treatment plan. 01/14: continue current management and treatment plan. 01/15 Case reviewed with neurology EEG ordered rule out and MD receptor encephalitis rule out partial complex status Hematocrit decreasing check for stool guaiac check iron studies Continue treating antihypertensive with antihypertensives Monitor sodium 01/16 Patient's mood significantly anxious ruminating. Case extensively discussed with neurology Dr. López and with healthcare proxy. Patient markers for autoimmune encephalitis and CSF were not able to be completed and will need repeat lumbar puncture per neurology this junior copywriter also agrees and case discussed with healthcare proxy who agrees with repeat LP. Patient noted to have positive blood in his stool and diarrhea. Hospitalist service will follow-up and will most likely need to be seen by Gastroenterology. Iron studies completed. Monitor CBC hyponatremia has normalized patient may have been taking in excess fluids. Discharge planning continues patient scheduled when stable to go to the [facility] having a very difficult time with this transition 01/18/25 Pt with significant anxiety rumination results from LP not yet back has alprazolam prn olanzapine depakote not stabilizing anxiety case reviewed extensively with hcp pt pending placement at [facility] 01/19/25 pt pending extensive csf panel ? start low dose escitalopram obsessional anxiety 01/22/2025 Monitor response to mirtazapine patient benefits from repetitive reassurance seems more linear and thoughts continue Depakote olanzapine will add low-dose mirtazapine monitor response. Pending results of CSF for autoimmune and paraneoplastic panel 01/23/2025 Check sodium continue Depakote olanzapine alprazolam seem more organized CSF results pending q1 Reason for continued inpatient stay Substantial Risk for: inability to function, rapid decompensation and med/psych decompensation Time Spent With Patient Time: Total time managing care of this patient today ____ minutes.
[2025-01-24 07:55] VITALS: BP 136/73; PULSE 77; RESP 18; TEMP 36.6; O2SAT 93
[2025-01-24] MEDS: Divalproex Sodium Sprinkles 125 MG CAP.DR.SPR 250 MG PO ×3 (08:09→21:39)
[2025-01-24 08:59] LABS: Alanine Aminotransferase 20 U/L (0-40); Albumin Level 3.8 g/dL (3.5-5.0); Alkaline Phosphatase 51 U/L (39-117); Anion Gap 11 (12-20); Aspartate Amino Transferase 20 U/L (5-37); Blood Urea Nitrogen 19 mg/dL (9-16); Calcium 9.2 mg/dL (8.4-10.2); Carbon Dioxide 22 mmol/L (22-29); Chloride 106 mmol/L (96-108); Creatinine Clr Calc Pharmacy 71.1; Estimated Glomerular Filt Rate > 60; Potassium 4.1 mmol/L (3.3-5.1); Sodium 135 mmol/L (135-145); Total Protein 5.9 g/dL (6.5-8.0)
[2025-01-24 10:00] VITALS: BMI 21.2
[2025-01-24 14:33] VITALS: BP 138/80
--- NOTE | 2025-01-24 15:05 | MHC.SLORD ---
Speech Language Pathology Order Status: Pt not seen for direct dysphagia tx today. Pt is tolerating diet as ordered, [employer]IST to followup x1.
[2025-01-24 20:00] VITALS: BP 185/90; PULSE 77; RESP 18; TEMP 36.7; O2SAT 94
[2025-01-24] MEDS: Aspirin Enteric Coated 81 MG TABLET.DR PO (21:40)
[2025-01-24 21:45] VITALS: BP 185/90
[2025-01-24 21:51] VITALS: BP 185/90
--- NOTE | 2025-01-24 23:42 | HO.PSYCHPN ---
Subjective Subjective Date of Service: 01/24/25 Reason For Visit: confusion agitation Subjective Notes: Conditional Voluntary Healthcare Proxy: Yes Interim History: Patient had episode of severe anxiety irritability. Patient has been often asking on insisting on demands during the day from staff. Medication Compliance: Yes Mental Status Exam Mental Status Exam Narrative: Appearance: Casually dressed, adequate hygiene, unkempt hair Behavior: Calm and cooperative throughout the interview. Intrusive. Talkative. Ruminating. 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 grossly intact to conversational testing Diagnostics Vital Signs (24Hr): Vital Signs - 24 hr 01/24/25 07:55 01/24/25 14:33 01/24/25 21:45 Temperature 97.9 F Pulse Rate 77 Respiratory Rate 18 Blood Pressure 136/73 138/80 185/90 H Pulse Oximetry 93 Oxygen Delivery Method Room Air 01/24/25 21:51 Temperature Pulse Rate Respiratory Rate Blood Pressure 185/90 H Pulse Oximetry Oxygen Delivery Method BMI result Body Mass Index 21.2 Labs 01/26/25 07:22 01/26/25 07:22 Labs: Laboratory Results - last 48 hr 01/24/25 07:11 Sodium 135 Potassium 4.1 Chloride 106 Carbon Dioxide 22 Anion Gap 11 L BUN 19 H Creatinine 0.81 Estim Creat Clear Calc 71.1 Estimated GFR > 60 Fasting Glucose 123 H Calcium 9.2 Total Bilirubin 0.9 AST 20 ALT 20 Alkaline Phosphatase 51 Total Protein 5.9 L Albumin 3.8 Imaging Radiology Impressions: ITS Impressions Brain MRI 12/15/24 09:35 IMPRESSION: Acute nonhemorrhagic ischemia involving the right precentral gyrus and left middle frontal gyrus concerning for embolic etiology. Extensive white matter disease likely related to small vessel occlusive disease. 5 mm nodular lesion, frontal horn right lateral ventricle. Malignancy cannot be excluded. Recommend IV contrast enhanced MRI brain. Global cerebral atrophy. Electronically signed by: Vincent Pandya MD 12/15/2024 10:21 AM EDT RP Lumbar Puncture Fluoroscopy 12/19/24 10:45 IMPRESSION: Successful fluoroscopic guided L3-4 interlaminar lumbar puncture. Electronically signed by: Kevin Barahona MD 12/19/2024 12:36 PM EDT RP Head/Neck CTA 12/21/24 10:29 IMPRESSION: No main cerebral artery occlusion or embolus. Irregular calcified plaque at the proximal right ICA at representing less than 50% stenosis. No dissection. Probable 2 mm aneurysm, right A2 segment. This critical test result is communicated to: Electronically signed by: Vincent Pandya MD 12/21/2024 12:02 PM EDT RP Chest X-Ray 01/12/25 11:15 IMPRESSION: No acute disease. Hiatal hernia involving stomach fundus. Electronically signed by: Mario Gutiérrez MD 01/12/2025 11:28 AM EDT RP Medications Medications Current Medications Acetaminophen (Acetaminophen 325 Mg Tablet) 650 mg PO Q6H PRN PRN Reason: Headache/Pain, Scale 1-10 Al Hydroxide/Mg Hydroxide (Magnesium Hydrox/Alum Hydrox 30 Ml Oral.Susp) 30 ml PO Q6H PRN PRN Reason: Heartburn/Nausea Alprazolam (Alprazolam 0.25 Mg Tablet) 0.125 mg PO TID [facility] Last Admin: 01/24/25 21:39 Dose: 0.125 mg Amlodipine Besylate (Amlodipine Besylate 10 Mg Tablet) 10 mg PO BEDTIME [facility]; Protocol Last Admin: 01/24/25 21:51 Dose: 10 mg Aspirin (Aspirin Enteric Coated 81 Mg Tablet.) 81 mg PO BEDTIME [facility] Last Admin: 01/24/25 21:40 Dose: 81 mg Atorvastatin Calcium (Atorvastatin Calcium 40 Mg Tablet) 40 mg PO BEDTIME [facility] Last Admin: 01/24/25 21:41 Dose: 40 mg Clonidine HCl (Clonidine Hcl 0.1 Mg Tablet) 0.1 mg PO BID PRN; Protocol PRN Reason: severe anxiety Last Admin: 12/18/24 20:33 Dose: 0.1 mg Divalproex Sodium (Divalproex Sodium Sprinkles 125 Mg Cap.) 250 mg PO TID [facility] Last Admin: 01/24/25 21:39 Dose: 250 mg Finasteride (Finasteride 5 Mg Tablet) 5 mg PO DAILY [facility] Last Admin: 01/24/25 08:07 Dose: 5 mg Hydralazine HCl (Hydralazine Hcl 25 Mg Tablet) 25 mg PO TID [facility]; Protocol Last Admin: 01/24/25 21:45 Dose: 25 mg Lactase (Lactase Tablet) 1 tab PO TIDAC [facility] Last Admin: 01/24/25 16:32 Dose: 1 tab Loperamide HCl (Loperamide Hcl 2 Mg Capsule) 2 mg PO Q6H PRN PRN Reason: Diarrhea Last Admin: 01/22/25 10:09 Dose: 2 mg Losartan Potassium (Losartan Potassium 50 Mg Tablet) 100 mg PO DAILY [facility]; Protocol Last Admin: 01/24/25 08:07 Dose: 100 mg Magnesium Hydroxide (Milk Of Magnesia 30 Ml Oral.Susp) 30 ml PO DAILY PRN PRN Reason: Constipation Last Admin: 12/19/24 21:38 Dose: 30 ml Melatonin (Melatonin 3 Mg Tablet) 6 mg PO BEDTIME [facility] Last Admin: 01/24/25 21:41 Dose: 6 mg Olanzapine (Olanzapine 2.5 Mg Tablet) 2.5 mg PO Q4H PRN PRN Reason: anxiety/restlessness Last Admin: 01/16/25 11:08 Dose: 2.5 mg Olanzapine (Olanzapine 5 Mg Tablet) 5 mg PO BEDTIME [facility] Last Admin: 01/24/25 21:39 Dose: 5 mg Olanzapine (Olanzapine 5 Mg Tablet) 5 mg PO DAILY [facility] Omeprazole (Omeprazole 20 Mg Capsule.Dr) 20 mg PO BEDTIME [facility] Last Admin: 01/24/25 21:42 Dose: 20 mg Tamsulosin HCl (Tamsulosin Hcl 0.4 Mg Capsule) 0.8 mg PO BEDTIME [facility] Last Admin: 01/24/25 21:38 Dose: 0.8 mg Tolterodine Tartrate (Tolterodine Tartrate La 4 Mg Cap.Er.24h) 4 mg PO DAILY [facility] Last Admin: 01/24/25 08:10 Dose: 4 mg Valacyclovir HCl (Valacyclovir Hcl 500 Mg Tablet) 500 mg PO DAILY [facility] Last Admin: 01/24/25 08:07 Dose: 500 mg Allergies Allergies Allergy/AdvReac Type Severity Reaction Status Date / Time No Known Allergies Allergy Verified 12/16/24 19:54 Assessment & Plan Assessment & Plan (1) Encephalopathy: Qualifiers: Encephalopathy type: unspecified encephalopathy Qualified Code(s): G93.40 - Encephalopathy, unspecified Status: Acute Code(s): G93.40 - Encephalopathy, unspecified Assessment and Plan: 74 years old man with multifactorial neuropsychiatric syndrome. Psychotic symptoms have appeared during last few months and other than vascular disease and cerebral degeneration, no obvious etiology has been confirmed. EEG did not reveal any epileptic discharge. Laboratories so far have been negative including test for CJD. Plan is to have another sample of CSF and sent for routine CSF studies and autoimmune encephalitis panel. Until then, symptomatic conservative management continuous. Plan Assessment and Plan Patient with ongoing obsessional thoughts intense pressured speech racing thoughts. Mirtazapine 7.5 mg at bedtime see if help with insomnia and obsessional anxiety continue olanzapine 5 mg at bedtime with a 2.5 mg prn targeting agitation obsessional thoughts anxiety. Still do not have results from lumbar puncture which may suggest other causes besides vascular brain changes the patient's symptoms 12/25/24: Increase Depakote to 375 mg BID. 12/26: aware his mood is labile, agrees to increase VPA dosing to 500 BID. hyperverbal, anxious. 12/27/2024 Patient continues hyperverbal limited reasoning and executive function hard for him to stay on topic. Check Depakote level [place]utz[place]se[place] pending for tomorrow then should have results regarding lumbar puncture. Increase a.m. olanzapine to 5 mg monitor gait 12/28/2024 CJD negative some improvement noted with Depakote and olanzapine less pressured improved anxiety somewhat better able to engage in linear conversation eating and drinking okay flesh pressure remains intermittently elevated will again ask hospitalist service to look at this has been difficult to control Further labs from lumbar puncture pending d/c planning 12/30/2024: No changes in current management plan and note some test results still pending from lumbar puncture 12/31: no changes Reason for continued inpatient stay Substantial Risk for rapid decompensation 01/01/25 Pt with some inc ability to think reason case reviewed with neurology no exact dx vascular plus degenerative? consider namenda 01/02/2025 Patient is still pending some labs neurology does not feel this is infectious or paraneoplastic. Looking at discharge to protected environment Case discussed with brother extensively reviewed option of Namenda mention consideration of the [place] 01/03/2025 Case reviewed with neurology and discussed still unclear diagnosis and patient's mental status remains severely impaired. Discussion held regarding possibility of transferred to [facility] later neurologist felt we should wait and see if amyloid studies come back positive and healthcare proxy Sai did have a discussion with Dr. López regarding above possibility. Consideration could be given to attempt at PET scan amyloid PET scan at some point neurologist felt only Jnoel blood work was positive. Discussed option of Namenda will start tomorrow monitor for any adverse effects hopefully may help with cognition and behavioral issues 01/04/2025 Start Namenda 5 mg daily referral process started regarding [facility] case reviewed with neurology and with healthcare proxy. Continue Depakote olanz patient has apine seems somewhat helpful in decreasing agitation irritability and anxiety. Still pending results from amyloid Regarding hypertension in better control also being followed by hospitalist service 01/05/25 Patient's case reviewed with treatment team reviewed with healthcare proxy. Patient has been referred to [facility] they only have emergency meds for surgery extensive material sent case distress discussed with transfer team Deborah oneal are still pending results from amyloid and tau testing patient has been more lethargic remains on olanzapine b.i.d. and Depakote 500 b.i.d.. Will lower morning olanzapine 01/08/2025 [facility] again denies transfer stating they will only take acute surgical patient's to neurology or acute stroke. Case reviewed with Dr. López regularly from Neurology. Seems to be getting more confused increase Namenda to 5 b.i.d. lower Depakote 250 b.i.d. as tolerated pending Alzheimer screening results 01/09/25 Referrals to [facility] but refusing transfer. pt neg blood work for tau and amyloid. Pt on dec depakote in case worsening confusion. Pt unabe to participate in linear planning except for shot periods. Episodes of severe anxiety. 01/10/2025 Case reviewed with healthcare proxy as a neurologist in [place] he would like to speak to patient does have power of research attorney who is not patient's brother. Patient has been accepted in tense living situation no focal findings no seizure activity blood pressure in better control generally patient maintaining nutrition has been getting somewhat more anxious and dysphoric not understanding why he is here 01/11/2025 Issues clarified with hospital research attorney regarding assisted living working with patient's [id number] and will also continue working with John patient's brother and healthcare proxy. Patient increasingly irritable distraught increase Namenda as tolerated Depakote has been lowered alprazolam 0.125 mg PO TID 01/12/2025 Patient on water restriction with hyponatremia question Depakote now at250 t.i.d. olanzapine b.i.d. alprazolam 0.125 mg t.i.d. p.r.n.. Recheck sodium electrolytes in the morning will recheck EEG on 922 recommended by outside Neurology by healthcare proxy however unable to do serial EEG for 3-7 days at this point. Continue Namenda discharge plan hopefully to the [facility] 01/13: Continue current management and treatment plan. 01/14: continue current management and treatment plan. 01/15 Case reviewed with neurology EEG ordered rule out and MD receptor encephalitis rule out partial complex status Hematocrit decreasing check for stool guaiac check iron studies Continue treating antihypertensive with antihypertensives Monitor sodium 01/16 Patient's mood significantly anxious ruminating. Case extensively discussed with neurology Dr. López and with healthcare proxy. Patient markers for autoimmune encephalitis and CSF were not able to be completed and will need repeat lumbar puncture per neurology this com writer also agrees and case discussed with healthcare proxy who agrees with repeat LP. Patient noted to have positive blood in his stool and diarrhea. Hospitalist service will follow-up and will most likely need to be seen by Gastroenterology. Iron studies completed. Monitor CBC hyponatremia has normalized patient may have been taking in excess fluids. Discharge planning continues patient scheduled when stable to go to the [facility] having a very difficult time with this transition 01/18/25 Pt with significant anxiety rumination results from LP not yet back has alprazolam prn olanzapine depakote not stabilizing anxiety case reviewed extensively with hcp pt pending placement at [facility] 01/19/25 pt pending extensive csf panel ? start low dose escitalopram obsessional anxiety 01/22/2025 Monitor response to mirtazapine patient benefits from repetitive reassurance seems more linear and thoughts continue Depakote olanzapine will add low-dose mirtazapine monitor response. Pending results of CSF for autoimmune and paraneoplastic panel 01/23/2025 Check sodium continue Depakote olanzapine alprazolam seem more organized CSF results pending 01/24/2025 Patient with marked lability times some were linear periods other times obsessional and controlling but without clear ability to often complete a thought continue olanzapine monitor blood sugar continue Depakote check level CBC profile recent hyponatremia Pending results on CSF further rule out on encephalitis clarify diagnosis question Namenda may have been contributing factor question regarding irritability q1 Informed Consent: does not understand Reason for continued inpatient stay Substantial Risk for: inability to function, rapid decompensation and med/psych decompensation Time Spent With Patient Time: Total time managing care of this patient today ____ minutes.
[2025-01-25 08:00] VITALS: BP 152/69; PULSE 78; RESP 18; TEMP 36.3; O2SAT 92
[2025-01-25 09:01] VITALS: BP 152/69
[2025-01-25 09:02] VITALS: BP 152/69
[2025-01-25] MEDS: Divalproex Sodium Sprinkles 125 MG CAP.DR.SPR 250 MG PO ×3 (09:03→20:33)
[2025-01-25 10:16] VITALS: BMI 20.7
--- NOTE | 2025-01-25 15:09 | HO.PSYCHPN ---
Subjective Subjective Date of Service: 01/25/25 Reason For Visit: confusion agitation Subjective Notes: Conditional Voluntary Healthcare Proxy: Yes Interim History: Patient paces the hallway. He denies anxiety or depression. He denies SI/HI/AVH. Per nursing, he is confused, labile, intrusive, talkative, ate 100% of each meal, and slept 6 hours. Medication Compliance: Yes Side effects from medications: No Attending Groups: Intermittent Review of Systems Acute medical concerns: No Review of Systems Review of Systems Yes all other systems are reviewed and are negative Mental Status Exam Mental Status Exam Narrative: Appearance: Casually dressed, adequate hygiene, unkempt hair Behavior: Calm and cooperative throughout the interview. Intrusive. Talkative. Ruminating. Eye contact is appropriate, and there are no signs of psychomotor agitation or retardation Speech: Normal volume and prosody, Thought process: Disorganized, tangential, circumstantial, some periods of more linear thoughts and need for repetition Thought content: No self-harming thoughts Mood: Anxious Affect: Labile SI:denies HI:denies VH/AH:none Delusions: possible Insight/judgment: Impaired insight and judgment Memory/cog: Alert, oriented person, place, and time. grossly intact to conversational testing Diagnostics Vital Signs (24Hr): Vital Signs - 24 hr 01/24/25 20:00 01/24/25 21:45 01/24/25 21:51 Temperature 98.1 F Pulse Rate 77 Respiratory Rate 18 Blood Pressure 185/90 H 185/90 H 185/90 H Pulse Oximetry 94 Oxygen Delivery Method Room Air 01/25/25 08:00 01/25/25 09:01 01/25/25 09:02 Temperature 97.3 F Pulse Rate 78 Respiratory Rate 18 Blood Pressure 152/69 H 152/69 H 152/69 H Pulse Oximetry 92 Oxygen Delivery Method Room Air BMI result Body Mass Index 20.7 Labs 01/17/25 17:29 01/24/25 07:11 Labs: Laboratory Results - last 48 hr 01/24/25 07:11 Sodium 135 Potassium 4.1 Chloride 106 Carbon Dioxide 22 Anion Gap 11 L BUN 19 H Creatinine 0.81 Estim Creat Clear Calc 71.1 Estimated GFR > 60 Fasting Glucose 123 H Calcium 9.2 Total Bilirubin 0.9 AST 20 ALT 20 Alkaline Phosphatase 51 Total Protein 5.9 L Albumin 3.8 Imaging Radiology Impressions: ITS Impressions Brain MRI 12/15/24 09:35 IMPRESSION: Acute nonhemorrhagic ischemia involving the right precentral gyrus and left middle frontal gyrus concerning for embolic etiology. Extensive white matter disease likely related to small vessel occlusive disease. 5 mm nodular lesion, frontal horn right lateral ventricle. Malignancy cannot be excluded. Recommend IV contrast enhanced MRI brain. Global cerebral atrophy. Electronically signed by: Vincent Pandya MD 12/15/2024 10:21 AM EDT RP Lumbar Puncture Fluoroscopy 12/19/24 10:45 IMPRESSION: Successful fluoroscopic guided L3-4 interlaminar lumbar puncture. Electronically signed by: Kevin Barahona MD 12/19/2024 12:36 PM EDT RP Head/Neck CTA 12/21/24 10:29 IMPRESSION: No main cerebral artery occlusion or embolus. Irregular calcified plaque at the proximal right ICA at representing less than 50% stenosis. No dissection. Probable 2 mm aneurysm, right A2 segment. This critical test result is communicated to: Electronically signed by: Vincent Pandya MD 12/21/2024 12:02 PM EDT RP Chest X-Ray 01/12/25 11:15 IMPRESSION: No acute disease. Hiatal hernia involving stomach fundus. Electronically signed by: Mario Gutiérrez MD 01/12/2025 11:28 AM EDT RP Medications Medications Current Medications Acetaminophen (Acetaminophen 325 Mg Tablet) 650 mg PO Q6H PRN PRN Reason: Headache/Pain, Scale 1-10 Al Hydroxide/Mg Hydroxide (Magnesium Hydrox/Alum Hydrox 30 Ml Oral.Susp) 30 ml PO Q6H PRN PRN Reason: Heartburn/Nausea Alprazolam (Alprazolam 0.25 Mg Tablet) 0.125 mg PO TID OTILIA Last Admin: 01/25/25 09:04 Dose: 0.125 mg Amlodipine Besylate (Amlodipine Besylate 10 Mg Tablet) 10 mg PO BEDTIME COUNT INCLUDES THE [facility]; Protocol Last Admin: 01/24/25 21:51 Dose: 10 mg Aspirin (Aspirin Enteric Coated 81 Mg Tablet.Dr) 81 mg PO BEDTIME OTILIA Last Admin: 01/24/25 21:40 Dose: 81 mg Atorvastatin Calcium (Atorvastatin Calcium 40 Mg Tablet) 40 mg PO BEDTIME COUNT INCLUDES THE [facility] Last Admin: 01/24/25 21:41 Dose: 40 mg Clonidine HCl (Clonidine Hcl 0.1 Mg Tablet) 0.1 mg PO BID PRN; Protocol PRN Reason: severe anxiety Last Admin: 12/18/24 20:33 Dose: 0.1 mg Divalproex Sodium (Divalproex Sodium Sprinkles 125 Mg Cap.) 250 mg PO TID OTILIA Last Admin: 01/25/25 09:03 Dose: 250 mg Finasteride (Finasteride 5 Mg Tablet) 5 mg PO DAILY OTILIA Last Admin: 01/25/25 09:01 Dose: 5 mg Hydralazine HCl (Hydralazine Hcl 25 Mg Tablet) 25 mg PO TID OTILIA; Protocol Last Admin: 01/25/25 09:02 Dose: 25 mg Lactase (Lactase Tablet) 1 tab PO TIDAC OTILIA Last Admin: 01/25/25 11:21 Dose: 1 tab Loperamide HCl (Loperamide Hcl 2 Mg Capsule) 2 mg PO Q6H PRN PRN Reason: Diarrhea Last Admin: 01/22/25 10:09 Dose: 2 mg Losartan Potassium (Losartan Potassium 50 Mg Tablet) 100 mg PO DAILY OTILIA; Protocol Last Admin: 01/25/25 09:01 Dose: 100 mg Magnesium Hydroxide (Milk Of Magnesia 30 Ml Oral.Susp) 30 ml PO DAILY PRN PRN Reason: Constipation Last Admin: 12/19/24 21:38 Dose: 30 ml Melatonin (Melatonin 3 Mg Tablet) 6 mg PO BEDTIME OTILIA Last Admin: 01/24/25 21:41 Dose: 6 mg Olanzapine (Olanzapine 2.5 Mg Tablet) 2.5 mg PO Q4H PRN PRN Reason: anxiety/restlessness Last Admin: 01/25/25 13:06 Dose: 2.5 mg Olanzapine (Olanzapine 5 Mg Tablet) 5 mg PO BEDTIME OTILIA Last Admin: 01/24/25 21:39 Dose: 5 mg Olanzapine (Olanzapine 5 Mg Tablet) 5 mg PO DAILY OTILIA Last Admin: 01/25/25 09:03 Dose: 5 mg Omeprazole (Omeprazole 20 Mg Capsule.) 20 mg PO BEDTIME OTILIA Last Admin: 01/24/25 21:42 Dose: 20 mg Tamsulosin HCl (Tamsulosin Hcl 0.4 Mg Capsule) 0.8 mg PO BEDTIME OTILIA Last Admin: 01/24/25 21:38 Dose: 0.8 mg Tolterodine Tartrate (Tolterodine Tartrate La 4 Mg Cap.Er.24h) 4 mg PO DAILY COUNT INCLUDES THE [facility] Last Admin: 01/25/25 09:02 Dose: 4 mg Valacyclovir HCl (Valacyclovir Hcl 500 Mg Tablet) 500 mg PO DAILY COUNT INCLUDES THE [facility] Last Admin: 01/25/25 09:02 Dose: 500 mg Allergies Allergies Allergy/AdvReac Type Severity Reaction Status Date / Time No Known Allergies Allergy Verified 12/16/24 19:54 Assessment & Plan Assessment & Plan (1) Encephalopathy: Qualifiers: Encephalopathy type: unspecified encephalopathy Qualified Code(s): G93.40 - Encephalopathy, unspecified Status: Acute Code(s): G93.40 - Encephalopathy, unspecified Assessment and Plan: 74 years old man with multifactorial neuropsychiatric syndrome. Psychotic symptoms have appeared during last few months and other than vascular disease and cerebral degeneration, no obvious etiology has been confirmed. EEG did not reveal any epileptic discharge. Laboratories so far have been negative including test for CJD. Plan is to have another sample of CSF and sent for routine CSF studies and autoimmune encephalitis panel. Until then, symptomatic conservative management continuous. Plan Assessment and Plan Patient with ongoing obsessional thoughts intense pressured speech racing thoughts. Mirtazapine 7.5 mg at bedtime see if help with insomnia and obsessional anxiety continue olanzapine 5 mg at bedtime with a 2.5 mg prn targeting agitation obsessional thoughts anxiety. Still do not have results from lumbar puncture which may suggest other causes besides vascular brain changes the patient's symptoms 12/25/24: Increase Depakote to 375 mg BID. 12/26: aware his mood is labile, agrees to increase VPA dosing to 500 BID. hyperverbal, anxious. 12/27/2024 Patient continues hyperverbal limited reasoning and executive function hard for him to stay on topic. Check Depakote level [place] pending for tomorrow then should have results regarding lumbar puncture. Increase a.m. olanzapine to 5 mg monitor gait 12/28/2024 CJD negative some improvement noted with Depakote and olanzapine less pressured improved anxiety somewhat better able to engage in linear conversation eating and drinking okay flesh pressure remains intermittently elevated will again ask hospitalist service to look at this has been difficult to control Further labs from lumbar puncture pending d/c planning 12/30/2024: No changes in current management plan and note some test results still pending from lumbar puncture 12/31: no changes Reason for continued inpatient stay Substantial Risk for rapid decompensation 01/01/25 Pt with some inc ability to think reason case reviewed with neurology no exact dx vascular plus degenerative? consider namenda 01/02/2025 Patient is still pending some labs neurology does not feel this is infectious or paraneoplastic. Looking at discharge to protected environment Case discussed with brother extensively reviewed option of Namenda mention consideration of the [place] 01/03/2025 Case reviewed with neurology and discussed still unclear diagnosis and patient's mental status remains severely impaired. Discussion held regarding possibility of transferred to [facility] later neurologist felt we should wait and see if amyloid studies come back positive and healthcare proxy Sai did have a discussion with Dr. López regarding above possibility. Consideration could be given to attempt at PET scan amyloid PET scan at some point neurologist felt only [facility] blood work was positive. Discussed option of Namenda will start tomorrow monitor for any adverse effects hopefully may help with cognition and behavioral issues 01/04/2025 Start Namenda 5 mg daily referral process started regarding [facility] case reviewed with neurology and with healthcare proxy. Continue Depakote olanz patient has apine seems somewhat helpful in decreasing agitation irritability and anxiety. Still pending results from amyloid Regarding hypertension in better control also being followed by hospitalist service 01/05/25 Patient's case reviewed with treatment team reviewed with healthcare proxy. Patient has been referred to [facility] they only have emergency meds for surgery extensive material sent case distress discussed with transfer team Deborah oneal are still pending results from amyloid and tau testing patient has been more lethargic remains on olanzapine b.i.d. and Depakote 500 b.i.d.. Will lower morning olanzapine 01/08/2025 [facility] again denies transfer stating they will only take acute surgical patient's to neurology or acute stroke. Case reviewed with Dr. López regularly from Neurology. Seems to be getting more confused increase Namenda to 5 b.i.d. lower Depakote 250 b.i.d. as tolerated pending Alzheimer screening results 01/09/25 Referrals to [facility] but refusing transfer. pt neg blood work for tau and amyloid. Pt on dec depakote in case worsening confusion. Pt unabe to participate in linear planning except for shot periods. Episodes of severe anxiety. 01/10/2025 Case reviewed with healthcare proxy as a neurologist in [place] he would like to speak to patient does have power of sports attorney who is not patient's brother. Patient has been accepted in tense living situation no focal findings no seizure activity blood pressure in better control generally patient maintaining nutrition has been getting somewhat more anxious and dysphoric not understanding why he is here 01/11/2025 Issues clarified with hospital sports attorney regarding assisted living working with patient's [id number] and will also continue working with John patient's brother and healthcare proxy. Patient increasingly irritable distraught increase Namenda as tolerated Depakote has been lowered alprazolam 0.125 mg PO TID 01/12/2025 Patient on water restriction with hyponatremia question Depakote now at250 t.i.d. olanzapine b.i.d. alprazolam 0.125 mg t.i.d. p.r.n.. Recheck sodium electrolytes in the morning will recheck EEG on 922 recommended by outside Neurology by healthcare proxy however unable to do serial EEG for 3-7 days at this point. Continue Namenda discharge plan hopefully to the [facility] 01/13: Continue current management and treatment plan. 01/14: continue current management and treatment plan. 01/15 Case reviewed with neurology EEG ordered rule out and MD receptor encephalitis rule out partial complex status Hematocrit decreasing check for stool guaiac check iron studies Continue treating antihypertensive with antihypertensives Monitor sodium 01/16 Patient's mood significantly anxious ruminating. Case extensively discussed with neurology Dr. López and with healthcare proxy. Patient markers for autoimmune encephalitis and CSF were not able to be completed and will need repeat lumbar puncture per neurology this entry writer also agrees and case discussed with healthcare proxy who agrees with repeat LP. Patient noted to have positive blood in his stool and diarrhea. Hospitalist service will follow-up and will most likely need to be seen by Gastroenterology. Iron studies completed. Monitor CBC hyponatremia has normalized patient may have been taking in excess fluids. Discharge planning continues patient scheduled when stable to go to the [facility] having a very difficult time with this transition 01/18/25 Pt with significant anxiety rumination results from LP not yet back has alprazolam prn olanzapine depakote not stabilizing anxiety case reviewed extensively with hcp pt pending placement at [facility] 01/19/25 pt pending extensive csf panel ? start low dose escitalopram obsessional anxiety 01/22/2025 Monitor response to mirtazapine patient benefits from repetitive reassurance seems more linear and thoughts continue Depakote olanzapine will add low-dose mirtazapine monitor response. Pending results of CSF for autoimmune and paraneoplastic panel 01/23/2025 Check sodium continue Depakote olanzapine alprazolam seem more organized CSF results pending 01/25: Continue current treatment regimen. q1 Patient educated on: therapeutic strategies Reason for continued inpatient stay Substantial Risk for: rapid decompensation Time Spent With Patient Time: Total time managing care of this patient today ____ minutes.
[2025-01-25 15:12] VITALS: BP 165/82
--- NOTE | 2025-01-25 15:20 | MHC.SL.SWA ---
Speech Pathologist Impression: Risk of Aspiration Due to: Dysphasia Diet Status: Recommend continue on Chopped/Advanced (NDD3) with thin liquids, pills whole with liquid. Continue to provide patient with quieter space at meals with reduced distractions. Liquid Consistency and Strategies for Safe Swallow: Liquid Intake Recommendation: Thin Liquid Intake Strategies: Small Sips Solid Food Consistency: Dietary Recommendations: Chopped/Advanced (NDD3) Additional Modifications to Solid Foods: Provide patient with quieter space at meals with reduced distractions. Oral Medication Intake: Whole with Liquid Please contact the pharmacy regarding appropriate crushable or liquid drug formulations that are available whenever modified delivery is recommended. Compensatory Strategies and Precautions to be Taken for Safe Swallow: Sitting Upright (90 deg) Liquids from Cup Liquids from Straw Small Bites and Sips Supervision While Eating and Drinking for Safe Swallow: None Needed Foods to Avoid: Too large pieces of food, tough, difficult to chew solids. Swallowing Recommended Treatments: Recommendation for Speech: Inpatient Speech Therapy Comment: Patient observed at lunch today. Patient was seated away from distractions in quiet area and away from other diners. Patient had meal of fish, broccoli, potatoes, and was making good progress, taking small bites, alternating at times with sips of liquid. Patient eventually noticed COCKTAIL LOUNGE [employer]NAGER, and began to make some demands, e.g. asked for a bottle of water (which was retrieved) and asked for an alarm to remind him when it was 12:30 when a visitor was coming. However when demands were responded to, patient then turned his attention back to his meal and proceeded. Patient has been tolerating diet and behavioral interventions well, has had no further incidents of choking during meals. Recommend continue on Chopped/Advanced (NDD3) with thin liquids, pills whole with liquid. Continue to provide patient with quieter space at meals with reduced distractions. No further speech service indicated, will complete order. Please recontact if additional concerns arise during inpatient stay. Frequency/Duration: Date Range for Service Req: Timeline to reassess: Structural Test Engineer Clinican/Clinical Fellow: No Supervisory Statement: I have reviewed and agree with the student/clinical fellow's documentation: N/A Speech Language Pathologist: Rosaline Coker M.A., CCC-COCKTAIL LOUNGE MANAGER
[2025-01-25 18:14] VITALS: BP 162/81
[2025-01-25 20:00] VITALS: BP 148/88; PULSE 93; RESP 18; TEMP 36.7; O2SAT 93
[2025-01-25] MEDS: Aspirin Enteric Coated 81 MG TABLET.DR PO (20:34)
[2025-01-26 07:27] LABS: MANUAL DIFF FLAG NO
[2025-01-26 07:29] LABS: Hematocrit 32.7 % (42.0-52.0); Hemoglobin 11.9 g/dl (14.0-18.0); Imm Gran Abs Auto 0.01 X10*3/uL (0.00-0.03); Imm Gran Pct Auto 0.2 % (0.0-0.4); Lymphocytes Absolute Auto 1.6 X10*3/uL (1.2-4.9); Mean Corpuscular HGB Conc 36.4 g/dl (31.0-36.0); Mean Corpuscular Hemoglobin 35.6 pg (27.0-33.0); Mean Corpuscular Volume 97.9 fL (80.0-98.0); NRBC Abs Auto 0.000 X10*3/uL (0.0-0.012); NRBC Pct Auto 0.0 /100WBC (0.0-0.2); Platelet Count 177 X10*3/uL (160-400); Red Blood Count 3.34 X10*6/uL (4.60-5.80); White Blood Count 5.5 X10*3/uL (4.8-10.8)
[2025-01-26 07:39] LABS: Ammonia 33 umol/L (13-55)
[2025-01-26 07:47] LABS: Alanine Aminotransferase 19 U/L (0-40); Albumin Level 4.0 g/dL (3.5-5.0); Alkaline Phosphatase 56 U/L (39-117); Anion Gap 11 (12-20); Aspartate Amino Transferase 21 U/L (5-37); Blood Urea Nitrogen 19 mg/dL (9-16); Calcium 9.3 mg/dL (8.4-10.2); Carbon Dioxide 23 mmol/L (22-29); Chloride 102 mmol/L (96-108); Creatinine Clr Calc Pharmacy 71.7; Estimated Glomerular Filt Rate > 60; Potassium 4.0 mmol/L (3.3-5.1); Sodium 132 mmol/L (135-145); Total Protein 6.4 g/dL (6.5-8.0)
[2025-01-26 09:03] VITALS: BP 125/61; PULSE 83; RESP 16; TEMP 36.3; O2SAT 90
[2025-01-26] MEDS: Divalproex Sodium Sprinkles 125 MG CAP.DR.SPR 250 MG PO ×3 (09:05→20:48)
[2025-01-26 15:02] VITALS: BP 128/67; PULSE 61
--- NOTE | 2025-01-26 18:02 | P.PNPSI_ITS ---
Subjective Subjective Date of Service: 01/26/25 Reason For Visit: confusion agitation Subjective Notes: Conditional Voluntary Healthcare Proxy: Yes Medical Problems Affecting Mental Status: Yes Interim History: Patient with periods of irritability and dysphoria alternating at times with mildly elevated states. Patient aware of discharge he is eating and drinking adequately Mental Status Exam Mental Status Exam Narrative: Appearance: Casually dressed, adequate hygiene, unkempt hair Behavior: Calm and cooperative throughout the interview. Intrusive. Talkative. Ruminating. Eye contact is appropriate, and there are no signs of psychomotor agitation or retardation Speech: Normal volume and prosody, Thought process: Disorganized, tangential, circumstantial, some periods of more linear thoughts and need for repetition Thought content: Ruminating obsessional mostly nonlinear Mood: Anxious Affect: Labile SI:denies HI:denies VH/AH:none Delusions: possible Insight/judgment: Impaired insight and judgment Memory/cog: Alert, oriented person, place, and time. grossly intact to conversational testing Diagnostics Vital Signs (24Hr): Vital Signs - 24 hr 01/25/25 18:14 01/25/25 20:00 01/26/25 09:03 Temperature 98.1 F 97.4 F Pulse Rate 93 83 Respiratory Rate 18 16 Blood Pressure 162/81 H 148/88 H 125/61 Pulse Oximetry 93 90 L Oxygen Delivery Method Room Air Room Air 01/26/25 15:02 Temperature Pulse Rate 61 Respiratory Rate Blood Pressure 128/67 Pulse Oximetry Oxygen Delivery Method BMI result Body Mass Index 20.7 Labs 01/26/25 07:22 01/26/25 07:22 Labs: Laboratory Results - last 48 hr 01/26/25 07:22 WBC 5.5 RBC 3.34 L Hgb 11.9 L Hct 32.7 L MCV 97.9 MCH 35.6 H MCHC 36.4 H RDW 12.9 Plt Count 177 D MPV 9.4 Immature Gran % (Auto) 0.2 Neut % (Auto) 55.6 Lymph % (Auto) 28.9 Forest % (Auto) 12.6 H Eos % (Auto) 1.6 Baso % (Auto) 1.1 Lymph # (Auto) 1.6 Forest # (Auto) 0.7 Eos # (Auto) 0.1 Baso # (Auto) 0.1 Abs Immat Gran (auto) 0.01 Absolute Neuts (auto) 3.0 Absolute Nucleated RBC 0.000 Nucleated RBC % (auto) 0.0 Sodium 132 L Potassium 4.0 Chloride 102 Carbon Dioxide 23 Anion Gap 11 L BUN 19 H Creatinine 0.79 Estim Creat Clear Calc 71.7 Estimated GFR > 60 Random Glucose 93 Calcium 9.3 Total Bilirubin 1.1 H AST 21 ALT 19 Alkaline Phosphatase 56 Ammonia 33 Total Protein 6.4 L Albumin 4.0 Valproic Acid 44.6 L Imaging Radiology Impressions: ITS Impressions Brain MRI 12/15/24 09:35 IMPRESSION: Acute nonhemorrhagic ischemia involving the right precentral gyrus and left middle frontal gyrus concerning for embolic etiology. Extensive white matter disease likely related to small vessel occlusive disease. 5 mm nodular lesion, frontal horn right lateral ventricle. Malignancy cannot be excluded. Recommend IV contrast enhanced MRI brain. Global cerebral atrophy. Electronically signed by: Vincent Pandya MD 12/15/2024 10:21 AM EDT RP Lumbar Puncture Fluoroscopy 12/19/24 10:45 IMPRESSION: Successful fluoroscopic guided L3-4 interlaminar lumbar puncture. Electronically signed by: Kevin Barahona MD 12/19/2024 12:36 PM EDT RP Head/Neck CTA 12/21/24 10:29 IMPRESSION: No main cerebral artery occlusion or embolus. Irregular calcified plaque at the proximal right ICA at representing less than 50% stenosis. No dissection. Probable 2 mm aneurysm, right A2 segment. This critical test result is communicated to: Electronically signed by: Vincent Pandya MD 12/21/2024 12:02 PM EDT RP Chest X-Ray 01/12/25 11:15 IMPRESSION: No acute disease. Hiatal hernia involving stomach fundus. Electronically signed by: Mario Gutiérrez MD 01/12/2025 11:28 AM EDT RP Medications Medications Current Medications Acetaminophen (Acetaminophen 325 Mg Tablet) 650 mg PO Q6H PRN PRN Reason: Headache/Pain, Scale 1-10 Al Hydroxide/Mg Hydroxide (Magnesium Hydrox/Alum Hydrox 30 Ml Oral.Susp) 30 ml PO Q6H PRN PRN Reason: Heartburn/Nausea Alprazolam (Alprazolam 0.25 Mg Tablet) 0.125 mg PO TID [facility] Last Admin: 01/26/25 15:13 Dose: 0.125 mg Amlodipine Besylate (Amlodipine Besylate 10 Mg Tablet) 10 mg PO BEDTIME OTILIA; Protocol Last Admin: 01/25/25 20:33 Dose: 10 mg Aspirin (Aspirin Enteric Coated 81 Mg Tablet.) 81 mg PO BEDTIME OTILIA Last Admin: 01/25/25 20:34 Dose: 81 mg Atorvastatin Calcium (Atorvastatin Calcium 40 Mg Tablet) 40 mg PO BEDTIME OTILIA Last Admin: 01/25/25 20:33 Dose: 40 mg Clonidine HCl (Clonidine Hcl 0.1 Mg Tablet) 0.1 mg PO BID PRN; Protocol PRN Reason: severe anxiety Last Admin: 01/25/25 18:14 Dose: 0.1 mg Divalproex Sodium (Divalproex Sodium Sprinkles 125 Mg Cap.) 250 mg PO TID OTILIA Last Admin: 01/26/25 15:12 Dose: 250 mg Finasteride (Finasteride 5 Mg Tablet) 5 mg PO DAILY OT[facility] Last Admin: 01/26/25 09:04 Dose: 5 mg Hydralazine HCl (Hydralazine Hcl 25 Mg Tablet) 25 mg PO TID OTILIA; Protocol Last Admin: 01/26/25 15:13 Dose: 25 mg Lactase (Lactase Tablet) 1 tab PO TIDAC OT[facility]IA Last Admin: 01/26/25 16:37 Dose: 1 tab Loperamide HCl (Loperamide Hcl 2 Mg Capsule) 2 mg PO Q6H PRN PRN Reason: Diarrhea Last Admin: 01/22/25 10:09 Dose: 2 mg Losartan Potassium (Losartan Potassium 50 Mg Tablet) 100 mg PO DAILY OTILIA; Protocol Last Admin: 01/26/25 09:05 Dose: 100 mg Magnesium Hydroxide (Milk Of Magnesia 30 Ml Oral.Susp) 30 ml PO DAILY PRN PRN Reason: Constipation Last Admin: 12/19/24 21:38 Dose: 30 ml Melatonin (Melatonin 3 Mg Tablet) 6 mg PO BEDTIME OTILIA Last Admin: 01/25/25 20:34 Dose: 6 mg Olanzapine (Olanzapine 2.5 Mg Tablet) 2.5 mg PO Q4H PRN PRN Reason: anxiety/restlessness Last Admin: 01/25/25 13:06 Dose: 2.5 mg Olanzapine (Olanzapine 5 Mg Tablet) 5 mg PO BEDTIME OTILIA Last Admin: 01/25/25 20:34 Dose: 5 mg Olanzapine (Olanzapine 5 Mg Tablet) 5 mg PO DAILY [facility] Last Admin: 01/26/25 09:05 Dose: 5 mg Omeprazole (Omeprazole 20 Mg Capsule.Dr) 20 mg PO BEDTIME [facility] Last Admin: 01/25/25 20:33 Dose: 20 mg Tamsulosin HCl (Tamsulosin Hcl 0.4 Mg Capsule) 0.8 mg PO BEDTIME [facility] Last Admin: 01/25/25 20:33 Dose: 0.8 mg Tolterodine Tartrate (Tolterodine Tartrate La 4 Mg Cap.Er.24h) 4 mg PO DAILY [facility] Last Admin: 01/26/25 09:05 Dose: 4 mg Valacyclovir HCl (Valacyclovir Hcl 500 Mg Tablet) 500 mg PO DAILY [facility] Last Admin: 01/26/25 09:06 Dose: 500 mg Allergies Allergies Allergy/AdvReac Type Severity Reaction Status Date / Time No Known Allergies Allergy Verified 12/16/24 19:54 Assessment & Plan Assessment & Plan (1) Encephalopathy: Qualifiers: Encephalopathy type: unspecified encephalopathy Qualified Code(s): G 93.40 - Encephalopathy, unspecified Status: Acute Code(s): G93.40 - Encephalopathy, unspecified Assessment and Plan: 74 years old man with multifactorial neuropsychiatric syndrome. Psychotic symptoms have appeared during last few months and other than vascular disease and cerebral degeneration, no obvious etiology has been confirmed. EEG did not reveal any epileptic discharge. Laboratories so far have been negative including test for CJD. Plan is to have another sample of CSF and sent for routine CSF studies and autoimmune encephalitis panel. Until then, symptomatic conservative management continuous. Plan Assessment and Plan Patient with ongoing obsessional thoughts intense pressured speech racing thoughts. Mirtazapine 7.5 mg at bedtime see if help with insomnia and obsessional anxiety continue olanzapine 5 mg at bedtime with a 2.5 mg prn targeting agitation obsessional thoughts anxiety. Still do not have results from lumbar puncture which may suggest other causes besides vascular brain changes the patient's symptoms 12/25/24: Increase Depakote to 375 mg BID. 12/26: aware his mood is labile, agrees to increase VPA dosing to 500 BID. hyperverbal, anxious. 12/27/2024 Patient continues hyperverbal limited reasoning and executive function hard for him to stay on topic. Check Depakote level [place] pending for tomorrow then should have results regarding lumbar puncture. Increase a.m. olanzapine to 5 mg monitor gait 12/28/2024 CJD negative some improvement noted with Depakote and olanzapine less pressured improved anxiety somewhat better able to engage in linear conversation eating and drinking okay flesh pressure remains intermittently elevated will again ask hospitalist service to look at this has been difficult to control Further labs from lumbar puncture pending d/c planning 12/30/2024: No changes in current management plan and note some test results still pending from lumbar puncture 12/31: no changes Reason for continued inpatient stay Substantial Risk for rapid decompensation 01/01/25 Pt with some inc ability to think reason case reviewed with neurology no exact dx vascular plus degenerative? consider namenda 01/02/2025 Patient is still pending some labs neurology does not feel this is infectious or paraneoplastic. Looking at discharge to protected environment Case discussed with brother extensively reviewed option of Namenda mention consideration of the [facility] 01/03/2025 Case reviewed with neurology and discussed still unclear diagnosis and patient's mental status remains severely impaired. Discussion held regarding possibility of transferred to [facility] later neurologist felt we should wait and see if amyloid studies come back positive and healthcare proxy Sai did have a discussion with Dr. López regarding above possibility. Consideration could be given to attempt at PET scan amyloid PET scan at some point neurologist felt only AYAD Jonel blood work was positive. Discussed option of Namenda will start tomorrow monitor for any adverse effects hopefully may help with cognition and behavioral issues 01/04/2025 Start Namenda 5 mg daily referral process started regarding [facility] case reviewed with neurology and with healthcare proxy. Continue Depakote olanz patient has apine seems somewhat helpful in decreasing agitation irritability and anxiety. Still pending results from amyloid Regarding hypertension in better control also being followed by hospitalist service 01/05/25 Patient's case reviewed with treatment team reviewed with healthcare proxy. Patient has been referred to [facility] they only have emergency meds for surgery extensive material sent case distress discussed with transfer team Deborah oneal are still pending results from amyloid and tau testing patient has been more lethargic remains on olanzapine b.i.d. and Depakote 500 b.i.d.. Will lower morning olanzapine 01/08/2025 [facility] again denies transfer stating they will only take acute surgical patient's to neurology or acute stroke. Case reviewed with Dr. López regularly from Neurology. Seems to be getting more confused increase Namenda to 5 b.i.d. lower Depakote 250 b.i.d. as tolerated pending Alzheimer screening results 01/09/25 Referrals to [facility] but refusing transfer. pt neg blood work for tau and amyloid. Pt on dec depakote in case worsening confusion. Pt unabe to participate in linear planning except for shot periods. Episodes of severe anxiety. 01/10/2025 Case reviewed with healthcare proxy as a neurologist in [place] he would like to speak to patient does have power of mergers and acquisitions attorney who is not patient's brother. Patient has been accepted in tense living situation no focal findings no seizure activity blood pressure in better control generally patient maintaining nutrition has been getting somewhat more anxious and dysphoric not understanding why he is here 01/11/2025 Issues clarified with hospital mergers and acquisitions attorney regarding assisted living working with patient's [id number] and will also continue working with John patient's brother and healthcare proxy. Patient increasingly irritable distraught increase Namenda as tolerated Depakote has been lowered alprazolam 0.125 mg PO TID 01/12/2025 Patient on water restriction with hyponatremia question Depakote now at250 t.i.d. olanzapine b.i.d. alprazolam 0.125 mg t.i.d. p.r.n.. Recheck sodium electrolytes in the morning will recheck EEG on 922 recommended by outside Neurology by healthcare proxy however unable to do serial EEG for 3-7 days at this point. Continue Namenda discharge plan [facility] to the [facility] 01/13: Continue current management and treatment plan. 01/14: continue current management and treatment plan. 01/15 Case reviewed with neurology EEG ordered rule out and MD receptor encephalitis rule out partial complex status Hematocrit decreasing check for stool guaiac check iron studies Continue treating antihypertensive with antihypertensives Monitor sodium 01/16 Patient's mood significantly anxious ruminating. Case extensively discussed with neurology Dr. López and with healthcare proxy. Patient markers for autoimmune encephalitis and CSF were not able to be completed and will need repeat lumbar puncture per neurology this conventional underwriter also agrees and case discussed with healthcare proxy who agrees with repeat LP. Patient noted to have positive blood in his stool and diarrhea. Hospitalist service will follow-up and will most likely need to be seen by Gastroenterology. Iron studies completed. Monitor CBC hyponatremia has normalized patient may have been taking in excess fluids. Discharge planning continues patient scheduled when stable to go to the [facility] having a very difficult time with this transition 01/18/25 Pt with significant anxiety rumination results from LP not yet back has alprazolam prn olanzapine depakote not stabilizing anxiety case reviewed extensively with hcp pt pending placement at central hospital 01/19/25 pt pending extensive csf panel ? start low dose escitalopram obsessional anxiety 01/22/2025 Monitor response to mirtazapine patient benefits from repetitive reassurance seems more linear and thoughts continue Depakote olanzapine will add low-dose mirtazapine monitor response. Pending results of CSF for autoimmune and paraneoplastic panel 01/23/2025 Check sodium continue Depakote olanzapine alprazolam seem more organized CSF results pending 01/25: Continue current treatment regimen. 01/26/25 Mild hyponatremia hematocrit slightly trending down case reviewed with hematology recheck sodium CBC pending Patient aware of upcoming discharge plan. q1 Reason for continued inpatient stay Substantial Risk for: inability to function, rapid decompensation and med/psych decompensation Time Spent With Patient Time: Total time managing care of this patient today ____ minutes.
[2025-01-26 20:00] VITALS: BP 168/90; PULSE 71; RESP 18; TEMP 36.7; O2SAT 98
[2025-01-26] MEDS: Aspirin Enteric Coated 81 MG TABLET.DR PO (20:47)
[2025-01-27 07:50] LABS: Anion Gap 10 (12-20); Blood Urea Nitrogen 18 mg/dL (9-16); Calcium 9.7 mg/dL (8.4-10.2); Carbon Dioxide 27 mmol/L (22-29); Chloride 101 mmol/L (96-108); Creatinine Clr Calc Pharmacy 74.6; Estimated Glomerular Filt Rate > 60; Potassium 4.3 mmol/L (3.3-5.1); Sodium 134 mmol/L (135-145)
[2025-01-27 08:00] VITALS: BP 89/50; PULSE 64; RESP 18; TEMP 36.4; O2SAT 98
[2025-01-27] MEDS: Divalproex Sodium Sprinkles 125 MG CAP.DR.SPR 250 MG PO ×3 (08:59→20:44)
[2025-01-27 09:48] VITALS: BP 89/50
[2025-01-27 09:50] VITALS: BP 89/50
--- NOTE | 2025-01-27 13:50 | HO.PSYCHPN ---
Subjective Subjective Date of Service: 01/27/25 Reason For Visit: confusion agitation Subjective Notes: Conditional Voluntary (by HCP) Healthcare Proxy: Yes Guardianship: No Medical Problems Affecting Mental Status: No Interim History: Medical record and nursing notes reviewed; case discussed during rounds with team/nursing staff, and met with patient for supportive therapy/psychoeducation, as well as medication management. Patient visible in common areas, watching TV/movie. Refused [facility] I prefer watching this than go there . Report feeling safe here. He talks about future plans and plans with bother. Appear anxious which could be baseline, distracted during assessment, talkative\, making comments regarding shoes, and this provider's outfit. Per nursing, patient slept for 5 hours, forgetful, ate meals and then saying he has not eaten. Remain on chopped diet. Medication Compliance: Yes Side effects from medications: No Attending Groups: Intermittent Review of Systems Acute medical concerns: No Medical Review of Systems: unchanged Review of Systems Review of Systems Yes all other systems are reviewed and are negative Mental Status Exam Mental Status Exam Narrative: Appearance: Casually dressed, adequate hygiene, unkempt hair Behavior: Calm and cooperative throughout the interview. Intrusive. Talkative. Ruminating. Eye contact is appropriate, and there are no signs of psychomotor agitation or retardation Speech: Normal volume and prosody, Thought process: Disorganized, tangential, circumstantial, some periods of more linear thoughts and need for repetition Thought content: Ruminating obsessional mostly nonlinear Mood: Anxious Affect: Labile SI:denies HI:denies VH/AH:none Delusions: possible Insight/judgment: Impaired insight and judgment Memory/cog: Alert, oriented person, place, and time. grossly intact to conversational testing Diagnostics Vital Signs (24Hr): Vital Signs - 24 hr 01/26/25 15:02 01/26/25 20:00 01/27/25 08:00 Temperature 98.1 F 97.5 F Pulse Rate 61 71 64 Respiratory Rate 18 18 Blood Pressure 128/67 168/90 H 89/50 L Pulse Oximetry 98 98 Oxygen Delivery Method Room Air Room Air 01/27/25 09:48 01/27/25 09:50 Temperature Pulse Rate Respiratory Rate Blood Pressure 89/50 L 89/50 L Pulse Oximetry Oxygen Delivery Method BMI result Body Mass Index 20.7 Labs 01/26/25 07:22 01/27/25 07:23 Labs: Laboratory Results - last 48 hr 01/26/25 01/27/25 07:22 07:23 WBC 5.5 RBC 3.34 L Hgb 11.9 L Hct 32.7 L MCV 97.9 MCH 35.6 H MCHC 36.4 H RDW 12.9 Plt Count 177 D MPV 9.4 Immature Gran % (Auto) 0.2 Neut % (Auto) 55.6 Lymph % (Auto) 28.9 [place] % (Auto) 12.6 H Eos % (Auto) 1.6 Baso % (Auto) 1.1 Lymph # (Auto) 1.6 [place] # (Auto) 0.7 Eos # (Auto) 0.1 Baso # (Auto) 0.1 Abs Immat Gran (auto) 0.01 Absolute Neuts (auto) 3.0 Absolute Nucleated RBC 0.000 Nucleated RBC % (auto) 0.0 Sodium 132 L 134 L Potassium 4.0 4.3 Chloride 102 101 Carbon Dioxide 23 27 Anion Gap 11 L 10 L BUN 19 H 18 H Creatinine 0.79 0.76 Estim Creat Clear Calc 71.7 74.6 Estimated GFR > 60 > 60 Random Glucose 93 83 Calcium 9.3 9.7 Total Bilirubin 1.1 H AST 21 ALT 19 Alkaline Phosphatase 56 Ammonia 33 Total Protein 6.4 L Albumin 4.0 Valproic Acid 44.6 L Imaging Radiology Impressions: ITS Impressions Brain MRI 12/15/24 09:35 IMPRESSION: Acute nonhemorrhagic ischemia involving the right precentral gyrus and left middle frontal gyrus concerning for embolic etiology. Extensive white matter disease likely related to small vessel occlusive disease. 5 mm nodular lesion, frontal horn right lateral ventricle. Malignancy cannot be excluded. Recommend IV contrast enhanced MRI brain. Global cerebral atrophy. Electronically signed by: Vincent Pandya MD 12/15/2024 10:21 AM EDT RP Lumbar Puncture Fluoroscopy 12/19/24 10:45 IMPRESSION: Successful fluoroscopic guided L3-4 interlaminar lumbar puncture. Electronically signed by: Kevin Barahona MD 12/19/2024 12:36 PM EDT RP Head/Neck CTA 12/21/24 10:29 IMPRESSION: No main cerebral artery occlusion or embolus. Irregular calcified plaque at the proximal right ICA at representing less than 50% stenosis. No dissection. Probable 2 mm aneurysm, right A2 segment. This critical test result is communicated to: Electronically signed by: Vincent Pandya MD 12/21/2024 12:02 PM EDT RP Chest X-Ray 01/12/25 11:15 IMPRESSION: No acute disease. Hiatal hernia involving stomach fundus. Electronically signed by: Mario Gutiérrez MD 01/12/2025 11:28 AM EDT RP Medications Medications Current Medications Acetaminophen (Acetaminophen 325 Mg Tablet) 650 mg PO Q6H PRN PRN Reason: Headache/Pain, Scale 1-10 Al Hydroxide/Mg Hydroxide (Magnesium Hydrox/Alum Hydrox 30 Ml Oral.Susp) 30 ml PO Q6H PRN PRN Reason: Heartburn/Nausea Alprazolam (Alprazolam 0.25 Mg Tablet) 0.125 mg PO TID [facility] Last Admin: 01/27/25 09:00 Dose: 0.125 mg Amlodipine Besylate (Amlodipine Besylate 10 Mg Tablet) 10 mg PO BEDTIME [facility]; Protocol Last Admin: 01/26/25 20:48 Dose: 10 mg Aspirin (Aspirin Enteric Coated 81 Mg Tablet.) 81 mg PO BEDTIME [facility] Last Admin: 01/26/25 20:47 Dose: 81 mg Atorvastatin Calcium (Atorvastatin Calcium 40 Mg Tablet) 40 mg PO BEDTIME [facility] Last Admin: 01/26/25 20:48 Dose: 40 mg Clonidine HCl (Clonidine Hcl 0.1 Mg Tablet) 0.1 mg PO BID PRN; Protocol PRN Reason: severe anxiety Last Admin: 01/25/25 18:14 Dose: 0.1 mg Divalproex Sodium (Divalproex Sodium Sprinkles 125 Mg Cap.) 250 mg PO TID [facility] Last Admin: 01/27/25 08:59 Dose: 250 mg Finasteride (Finasteride 5 Mg Tablet) 5 mg PO DAILY [facility] Last Admin: 01/27/25 09:01 Dose: 5 mg Hydralazine HCl (Hydralazine Hcl 25 Mg Tablet) 25 mg PO TID [facility]; Protocol Last Admin: 01/27/25 09:48 Dose: Not Given Lactase (Lactase Tablet) 1 tab PO TIDAC [facility] Last Admin: 01/27/25 12:27 Dose: Not Given Loperamide HCl (Loperamide Hcl 2 Mg Capsule) 2 mg PO Q6H PRN PRN Reason: Diarrhea Last Admin: 01/22/25 10:09 Dose: 2 mg Losartan Potassium (Losartan Potassium 50 Mg Tablet) 100 mg PO DAILY [facility]; Protocol Last Admin: 01/27/25 09:50 Dose: Not Given Magnesium Hydroxide (Milk Of Magnesia 30 Ml Oral.Susp) 30 ml PO DAILY PRN PRN Reason: Constipation Last Admin: 12/19/24 21:38 Dose: 30 ml Melatonin (Melatonin 3 Mg Tablet) 6 mg PO BEDTIME [facility] Last Admin: 01/26/25 20:48 Dose: 6 mg Olanzapine (Olanzapine 2.5 Mg Tablet) 2.5 mg PO Q4H PRN PRN Reason: anxiety/restlessness Last Admin: 01/25/25 13:06 Dose: 2.5 mg Olanzapine (Olanzapine 5 Mg Tablet) 5 mg PO BEDTIME [facility] Last Admin: 01/26/25 20:47 Dose: 5 mg Olanzapine (Olanzapine 5 Mg Tablet) 5 mg PO DAILY [facility] Last Admin: 01/27/25 09:00 Dose: 5 mg Omeprazole (Omeprazole 20 Mg Capsule.Dr) 20 mg PO BEDTIME [facility] Last Admin: 01/26/25 20:48 Dose: 20 mg Tamsulosin HCl (Tamsulosin Hcl 0.4 Mg Capsule) 0.8 mg PO BEDTIME [facility] Last Admin: 01/26/25 20:47 Dose: 0.8 mg Tolterodine Tartrate (Tolterodine Tartrate La 4 Mg Cap.Er.24h) 4 mg PO DAILY [facility] Last Admin: 01/27/25 09:00 Dose: 4 mg Valacyclovir HCl (Valacyclovir Hcl 500 Mg Tablet) 500 mg PO DAILY [facility] Last Admin: 01/27/25 09:01 Dose: 500 mg Allergies Allergies Allergy/AdvReac Type Severity Reaction Status Date / Time No Known Allergies Allergy Verified 12/16/24 19:54 Assessment & Plan Assessment & Plan (1) Encephalopathy: Qualifiers: Encephalopathy type: unspecified encephalopathy Qualified Code(s): G93.40 - Encephalopathy, unspecified Status: Acute Code(s): G93.40 - Encephalopathy, unspecified Assessment and Plan: 74 years old man with multifactorial neuropsychiatric syndrome. Psychotic symptoms have appeared during last few months and other than vascular disease and cerebral degeneration, no obvious etiology has been confirmed. EEG did not reveal any epileptic discharge. Laboratories so far have been negative including test for CJD. Plan is to have another sample of CSF and sent for routine CSF studies and autoimmune encephalitis panel. Until then, symptomatic conservative management continuous. Plan Assessment and Plan Patient with ongoing obsessional thoughts intense pressured speech racing thoughts. Mirtazapine 7.5 mg at bedtime see if help with insomnia and obsessional anxiety continue olanzapine 5 mg at bedtime with a 2.5 mg prn targeting agitation obsessional thoughts anxiety. Still do not have results from lumbar puncture which may suggest other causes besides vascular brain changes the patient's symptoms 12/25/24: Increase Depakote to 375 mg BID. 12/26: aware his mood is labile, agrees to increase VPA dosing to 500 BID. hyperverbal, anxious. 12/27/2024 Patient continues hyperverbal limited reasoning and executive function hard for him to stay on topic. Check Depakote level [place] pending for tomorrow then should have results regarding lumbar puncture. Increase a.m. olanzapine to 5 mg monitor gait 12/28/2024 CJD negative some improvement noted with Depakote and olanzapine less pressured improved anxiety somewhat better able to engage in linear conversation eating and drinking okay flesh pressure remains intermittently elevated will again ask hospitalist service to look at this has been difficult to control Further labs from lumbar puncture pending d/c planning 12/30/2024: No changes in current management plan and note some test results still pending from lumbar puncture 12/31: no changes Reason for continued inpatient stay Substantial Risk for rapid decompensation 01/01/25 Pt with some inc ability to think reason case reviewed with neurology no exact dx vascular plus degenerative? consider namenda 01/02/2025 Patient is still pending some labs neurology does not feel this is infectious or paraneoplastic. Looking at discharge to protected environment Case discussed with brother extensively reviewed option of Namenda mention consideration of the [place] 01/03/2025 Case reviewed with neurology and discussed still unclear diagnosis and patient's mental status remains severely impaired. Discussion held regarding possibility of transferred to [facility] neurologist felt we should wait and see if amyloid studies come back positive and healthcare proxy Sai did have a discussion with Dr. López regarding above possibility. Consideration could be given to attempt at PET scan amyloid PET scan at some point neurologist felt only AYAD Remy blood work was positive. Discussed option of Namenda will start tomorrow monitor for any adverse effects hopefully may help with cognition and behavioral issues 01/04/2025 Start Namenda 5 mg daily referral process started regarding [facility] case reviewed with neurology and with healthcare proxy. Continue Depakote olanz patient has apine seems somewhat helpful in decreasing agitation irritability and anxiety. Still pending results from amyloid Regarding hypertension in better control also being followed by hospitalist service 01/05/25 Patient's case reviewed with treatment team reviewed with healthcare proxy. Patient has been referred to [facility] they only have emergency meds for surgery extensive material sent case distress discussed with transfer team Deborah oneal are still pending results from amyloid and tau testing patient has been more lethargic remains on olanzapine b.i.d. and Depakote 500 b.i.d.. Will lower morning olanzapine 01/08/2025 [facility] again denies transfer stating they will only take acute surgical patient's to neurology or acute stroke. Case reviewed with Dr. López regularly from Neurology. Seems to be getting more confused increase Namenda to 5 b.i.d. lower Depakote 250 b.i.d. as tolerated pending Alzheimer screening results 01/09/25 Referrals to [facility] but refusing transfer. pt neg blood work for tau and amyloid. Pt on dec depakote in case worsening confusion. Pt unabe to participate in linear planning except for shot periods. Episodes of severe anxiety. 01/10/2025 Case reviewed with healthcare proxy as a neurologist in [place] he would like to speak to patient does have power of disability attorney who is not patient's brother. Patient has been accepted in tense living situation no focal findings no seizure activity blood pressure in better control generally patient maintaining nutrition has been getting somewhat more anxious and dysphoric not understanding why he is here 01/11/2025 Issues clarified with hospital disability attorney regarding assisted living working with patient's [id number] and will also continue working with John patient's brother and healthcare proxy. Patient increasingly irritable distraught increase Namenda as tolerated Depakote has been lowered alprazolam 0.125 mg PO TID 01/12/2025 Patient on water restriction with hyponatremia question Depakote now at250 t.i.d. olanzapine b.i.d. alprazolam 0.125 mg t.i.d. p.r.n.. Recheck sodium electrolytes in the morning will recheck EEG on 922 recommended by outside Neurology by healthcare proxy however unable to do serial EEG for 3-7 days at this point. Continue Namenda discharge plan hopefully to the [facility] 01/13: Continue current management and treatment plan. 01/14: continue current management and treatment plan. 01/15 Case reviewed with neurology EEG ordered rule out and MD receptor encephalitis rule out partial complex status Hematocrit decreasing check for stool guaiac check iron studies Continue treating antihypertensive with antihypertensives Monitor sodium 01/16 Patient's mood significantly anxious ruminating. Case extensively discussed with neurology Dr. López and with healthcare proxy. Patient markers for autoimmune encephalitis and CSF were not able to be completed and will need repeat lumbar puncture per neurology this advertising writer also agrees and case discussed with healthcare proxy who agrees with repeat LP. Patient noted to have positive blood in his stool and diarrhea. Hospitalist service will follow-up and will most likely need to be seen by Gastroenterology. Iron studies completed. Monitor CBC hyponatremia has normalized patient may have been taking in excess fluids. Discharge planning continues patient scheduled when stable to go to the [facility] having a very difficult time with this transition 01/18/25 Pt with significant anxiety rumination results from LP not yet back has alprazolam prn olanzapine depakote not stabilizing anxiety case reviewed extensively with hcp pt pending placement at [facility] 01/19/25 pt pending extensive csf panel ? start low dose escitalopram obsessional anxiety 01/22/2025 Monitor response to mirtazapine patient benefits from repetitive reassurance seems more linear and thoughts continue Depakote olanzapine will add low-dose mirtazapine monitor response. Pending results of CSF for autoimmune and paraneoplastic panel 01/23/2025 Check sodium continue Depakote olanzapine alprazolam seem more organized CSF results pending 01/25: Continue current treatment regimen. 01/26/25 Mild hyponatremia hematocrit slightly trending down case reviewed with hematology recheck sodium CBC pending Patient aware of upcoming discharge plan. 01/27/25: Patient visible in common areas, watching TV/movie. Refused [facility] I prefer watching this than go there . Report feeling safe here. He talks about future plans and plans with bother. Appear anxious which could be baseline, distracted during assessment, talkative, making comments regarding shoes, and this provider's outfit. Per nursing, patient slept for 5 hours, forgetful, ate meals and then saying he has not eaten. Remain on chopped diet. Tentative to be discharged early next week per treatment team. Na 134; Low but improved. VPA level low at 44.6 q1 Patient educated on: medication risk/benefits and therapeutic strategies Informed Consent: understands and further education needed Reason for continued inpatient stay Substantial Risk for: med/psych decompensation Time Spent With Patient Time: Total time managing care of this patient today ____ minutes.
[2025-01-27 14:58] VITALS: BP 132/76
[2025-01-27 20:00] VITALS: BP 163/84; PULSE 71; RESP 16; TEMP 36.8; O2SAT 93
[2025-01-27] MEDS: Aspirin Enteric Coated 81 MG TABLET.DR PO (20:44)
[2025-01-28] VITALS (7 sets, daily range): BP systolic 99–149; BP diastolic 54–84; PULSE 70–72; RESP 16–17; TEMP 36.7–37.2; O2SAT 96–97; BMI 21.2
[2025-01-28] MEDS: Divalproex Sodium Sprinkles 125 MG CAP.DR.SPR 250 MG PO ×3 (08:34→19:58)
[2025-01-28 08:56] LABS: Anion Gap 12 (12-20); Blood Urea Nitrogen 17 mg/dL (9-16); Calcium 9.4 mg/dL (8.4-10.2); Carbon Dioxide 24 mmol/L (22-29); Chloride 100 mmol/L (96-108); Creatinine Clr Calc Pharmacy 76.6; Estimated Glomerular Filt Rate > 60; Potassium 3.5 mmol/L (3.3-5.1); Sodium 132 mmol/L (135-145)
--- NOTE | 2025-01-28 19:20 | P.PNPSI_ITS ---
Subjective Subjective Date of Service: 01/28/25 Reason For Visit: confusion agitation Subjective Notes: Conditional Voluntary Medical Problems Affecting Mental Status: No Interim History: Medical record and nursing notes reviewed; case discussed during rounds with team/nursing staff, and met with patient for supportive therapy/psychoeducation, as well as medication management. Patient slept for 5 hours, normal appetite. Blood pressure running low in the morning, cardiac medication was held but given when blood pressure is back up to normal. Visible, some racing thoughts, but less intrusive, redirectable, less labile He states that inside he feel anxious but how do I look from outside? . Want this provider to call his brother to tell him that he has a koenig in his wallet, asked for papers to ride his thoughts down. Reviewed with nursing regarding Sodium level which is fluctuated and which could be at baseline on low side. Total of fluid only consume of about 900ml. ALl recorded from meal/food intake. Nursing reports no excessive drinking. Will continue to monitor. Medication Compliance: Yes Side effects from medications: No Attending Groups: Yes Review of Systems Acute medical concerns: No Medical Review of Systems: unchanged Review of Systems Review of Systems Yes all other systems are reviewed and are negative Mental Status Exam Mental Status Exam Narrative: Appearance: Casually dressed, adequate hygiene, kempt hair Behavior: Anxious cooperative throughout the interview. Talkative. Ruminating. Eye contact is appropriate, and there are no signs of psychomotor agitation or retardation Speech: Normal volume and prosody, Thought process: Disorganized, less tangential, circumstantial, some periods of more linear thoughts and need for repetition Thought content: Ruminating obsessional mostly nonlinear Mood: Anxious Affect: less Labile SI:denies HI:denies VH/AH:none Delusions: possible Insight/judgment:some improvement of insight and judgment Memory/cog: Alert, oriented person, place, and time. grossly intact to conversational testing Diagnostics Vital Signs (24Hr): Vital Signs - 24 hr 01/27/25 20:00 01/28/25 08:00 01/28/25 08:40 Temperature 98.2 F 98.1 F Pulse Rate 71 70 Respiratory Rate 16 17 Blood Pressure 163/84 H 99/54 L 99/54 L Pulse Oximetry 93 96 Oxygen Delivery Method Room Air Room Air 01/28/25 08:41 01/28/25 14:07 Temperature Pulse Rate Respiratory Rate Blood Pressure 99/54 L 149/76 H Pulse Oximetry Oxygen Delivery Method BMI result Body Mass Index 21.2 Labs 01/26/25 07:22 01/28/25 08:20 Labs: Laboratory Results - last 48 hr 01/27/25 01/28/25 07:23 08:20 Sodium 134 L 132 L Potassium 4.3 3.5 Chloride 101 100 Carbon Dioxide 27 24 Anion Gap 10 L 12 BUN 18 H 17 H Creatinine 0.76 0.74 Estim Creat Clear Calc 74.6 76.6 Estimated GFR > 60 > 60 Random Glucose 83 158 H Calcium 9.7 9.4 Imaging Radiology Impressions: ITS Impressions Brain MRI 12/15/24 09:35 IMPRESSION: Acute nonhemorrhagic ischemia involving the right precentral gyrus and left middle frontal gyrus concerning for embolic etiology. Extensive white matter disease likely related to small vessel occlusive disease. 5 mm nodular lesion, frontal horn right lateral ventricle. Malignancy cannot be excluded. Recommend IV contrast enhanced MRI brain. Global cerebral atrophy. Electronically signed by: Vincent Pandya MD 12/15/2024 10:21 AM EDT RP Lumbar Puncture Fluoroscopy 12/19/24 10:45 IMPRESSION: Successful fluoroscopic guided L3-4 interlaminar lumbar puncture. Electronically signed by: Kevin Barahona MD 12/19/2024 12:36 PM EDT Head/Neck CTA 12/21/24 10:29 IMPRESSION: No main cerebral artery occlusion or embolus. Irregular calcified plaque at the proximal right ICA at representing less than 50% stenosis. No dissection. Probable 2 mm aneurysm, right A2 segment. This critical test result is communicated to: Electronically signed by: Vincent Pandya MD 12/21/2024 12:02 PM EDT RP Chest X-Ray 01/12/25 11:15 IMPRESSION: No acute disease. Hiatal hernia involving stomach fundus. Electronically signed by: Mario Gutiérrez MD 01/12/2025 11:28 AM EDT RP Medications Medications Current Medications Acetaminophen (Acetaminophen 325 Mg Tablet) 650 mg PO Q6H PRN PRN Reason: Headache/Pain, Scale 1-10 Al Hydroxide/Mg Hydroxide (Magnesium Hydrox/Alum Hydrox 30 Ml Oral.Susp) 30 ml PO Q6H PRN PRN Reason: Heartburn/Nausea Alprazolam (Alprazolam 0.25 Mg Tablet) 0.125 mg PO TID [facility] Last Admin: 01/28/25 14:08 Dose: 0.125 mg Amlodipine Besylate (Amlodipine Besylate 10 Mg Tablet) 10 mg PO BEDTIME OTILIA; Protocol Last Admin: 01/27/25 20:45 Dose: 10 mg Aspirin (Aspirin Enteric Coated 81 Mg Tablet.Dr) 81 mg PO BEDTIME OTILIA Last Admin: 01/27/25 20:44 Dose: 81 mg Atorvastatin Calcium (Atorvastatin Calcium 40 Mg Tablet) 40 mg PO BEDTIME OTILIA Last Admin: 01/27/25 20:45 Dose: 40 mg Clonidine HCl (Clonidine Hcl 0.1 Mg Tablet) 0.1 mg PO BID PRN; Protocol PRN Reason: severe anxiety Last Admin: 01/25/25 18:14 Dose: 0.1 mg Divalproex Sodium (Divalproex Sodium Sprinkles 125 Mg CapSpr) 250 mg PO TID OTILIA Last Admin: 01/28/25 14:07 Dose: 250 mg Finasteride (Finasteride 5 Mg Tablet) 5 mg PO DAILY OTILIA Last Admin: 01/28/25 08:33 Dose: 5 mg Hydralazine HCl (Hydralazine Hcl 25 Mg Tablet) 25 mg PO TID OTILIA; Protocol Last Admin: 01/28/25 14:07 Dose: 25 mg Lactase (Lactase Tablet) 1 tab PO TIDAC OTILIA Last Admin: 01/28/25 16:19 Dose: 1 tab Loperamide HCl (Loperamide Hcl 2 Mg Capsule) 2 mg PO Q6H PRN PRN Reason: Diarrhea Last Admin: 01/22/25 10:09 Dose: 2 mg Losartan Potassium (Losartan Potassium 50 Mg Tablet) 100 mg PO DAILY OTILIA; Protocol Last Admin: 01/28/25 08:41 Dose: Not Given Magnesium Hydroxide (Milk Of Magnesia 30 Ml Oral.Susp) 30 ml PO DAILY PRN PRN Reason: Constipation Last Admin: 12/19/24 21:38 Dose: 30 ml Melatonin (Melatonin 3 Mg Tablet) 6 mg PO BEDTIME OTILIA Last Admin: 01/27/25 20:45 Dose: 6 mg Olanzapine (Olanzapine 2.5 Mg Tablet) 2.5 mg PO Q4H PRN PRN Reason: anxiety/restlessness Last Admin: 01/28/25 18:39 Dose: 2.5 mg Olanzapine (Olanzapine 5 Mg Tablet) 5 mg PO BEDTIME [facility] Last Admin: 01/27/25 20:45 Dose: 5 mg Olanzapine (Olanzapine 5 Mg Tablet) 5 mg PO DAILY [facility] Last Admin: 01/28/25 08:34 Dose: 5 mg Omeprazole (Omeprazole 20 Mg Capsule.Dr) 20 mg PO BEDTIME [facility] Last Admin: 01/27/25 20:45 Dose: 20 mg Tamsulosin HCl (Tamsulosin Hcl 0.4 Mg Capsule) 0.8 mg PO BEDTIME [facility] Last Admin: 01/27/25 20:44 Dose: 0.8 mg Tolterodine Tartrate (Tolterodine Tartrate La 4 Mg Cap.Er.24h) 4 mg PO DAILY [facility] Last Admin: 01/28/25 08:34 Dose: 4 mg Valacyclovir HCl (Valacyclovir Hcl 500 Mg Tablet) 500 mg PO DAILY [facility] Last Admin: 01/28/25 08:34 Dose: 500 mg Allergies Allergies Allergy/AdvReac Type Severity Reaction Status Date / Time No Known Allergies Allergy Verified 12/16/24 19:54 Assessment & Plan Assessment & Plan (1) Encephalopathy: Qualifiers: Encephalopathy type: unspecified encephalopathy Qualified Code(s): G 93.40 - Encephalopathy, unspecified Status: Acute Code(s): G93.40 - Encephalopathy, unspecified Assessment and Plan: 74 years old man with multifactorial neuropsychiatric syndrome. Psychotic symptoms have appeared during last few months and other than vascular disease and cerebral degeneration, no obvious etiology has been confirmed. EEG did not reveal any epileptic discharge. Laboratories so far have been negative including test for CJD. Plan is to have another sample of CSF and sent for routine CSF studies and autoimmune encephalitis panel. Until then, symptomatic conservative management continuous. Plan Assessment and Plan Patient with ongoing obsessional thoughts intense pressured speech racing thoughts. Mirtazapine 7.5 mg at bedtime see if help with insomnia and obsessional anxiety continue olanzapine 5 mg at bedtime with a 2.5 mg prn targeting agitation obsessional thoughts anxiety. Still do not have results from lumbar puncture which may suggest other causes besides vascular brain changes the patient's symptoms 12/25/24: Increase Depakote to 375 mg BID. 12/26: aware his mood is labile, agrees to increase VPA dosing to 500 BID. hyperverbal, anxious. 12/27/2024 Patient continues hyperverbal limited reasoning and executive function hard for him to stay on topic. Check Depakote level [place]utz[place]se[place] pending for tomorrow then should have results regarding lumbar puncture. Increase a.m. olanzapine to 5 mg monitor gait 12/28/2024 CJD negative some improvement noted with Depakote and olanzapine less pressured improved anxiety somewhat better able to engage in linear conversation eating and drinking okay flesh pressure remains intermittently elevated will again ask hospitalist service to look at this has been difficult to control Further labs from lumbar puncture pending d/c planning 12/30/2024: No changes in current management plan and note some test results still pending from lumbar puncture 12/31: no changes Reason for continued inpatient stay Substantial Risk for rapid decompensation 01/01/25 Pt with some inc ability to think reason case reviewed with neurology no exact dx vascular plus degenerative? consider namenda 01/02/2025 Patient is still pending some labs neurology does not feel this is infectious or paraneoplastic. Looking at discharge to protected environment Case discussed with brother extensively reviewed option of Namenda mention consideration of the [facility] 01/03/2025 Case reviewed with neurology and discussed still unclear diagnosis and patient's mental status remains severely impaired. Discussion held [facility] neurologist felt we should wait and see if amyloid studies come back positive and healthcare proxy Sai did have a discussion with Dr. López regarding above possibility. Consideration could be given to attempt at PET scan amyloid PET scan at some point neurologist felt only Jonel blood work was positive. Discussed option of Namenda will start tomorrow monitor for any adverse effects hopefully may help with cognition and behavioral issues 01/04/2025 Start Namenda 5 mg daily referral process started regarding [facility] case reviewed with neurology and with healthcare proxy. Continue Depakote olanz patient has apine seems somewhat helpful in decreasing agitation irritability and anxiety. Still pending results from amyloid Regarding hypertension in better control also being followed by hospitalist service 01/05/25 Patient's case reviewed with treatment team reviewed with healthcare proxy. Patient has been referred to [facility] they only have emergency meds for surgery extensive material sent case distress discussed with transfer team Deborah oneal are still pending results from amyloid and tau testing patient has been more lethargic remains on olanzapine b.i.d. and Depakote 500 b.i.d.. Will lower morning olanzapine 01/08/2025 [facility] again denies transfer stating they will only take acute surgical patient's to neurology or acute stroke. Case reviewed with Dr. López regularly from Neurology. Seems to be getting more confused increase Namenda to 5 b.i.d. lower Depakote 250 b.i.d. as tolerated pending Alzheimer screening results 01/09/25 Referrals to [facility] but refusing transfer. pt neg blood work for tau and amyloid. Pt on dec depakote in case worsening confusion. Pt unabe to participate in linear planning except for shot periods. Episodes of severe anxiety. 01/10/2025 Case reviewed with healthcare proxy as a neurologist in [place] he would like to speak to patient does have power of lead investigator who is not patient's brother. Patient has been accepted in tense living situation no focal findings no seizure activity blood pressure in better control generally patient maintaining nutrition has been getting somewhat more anxious and dysphoric not understanding why he is here 01/11/2025 Issues clarified with hospital lead investigator regarding assisted living working with patient's [id number] and will also continue working with John patient's brother and healthcare proxy. Patient increasingly irritable distraught increase Namenda as tolerated Depakote has been lowered alprazolam 0.125 mg PO TID 01/12/2025 Patient on water restriction with hyponatremia question Depakote now at250 t.i.d. olanzapine b.i.d. alprazolam 0.125 mg t.i.d. p.r.n.. Recheck sodium electrolytes in the morning will recheck EEG on 922 recommended by outside Neurology by healthcare proxy however unable to do serial EEG for 3-7 days at this point. Continue Namenda discharge plan hopefully to the [facility] 01/13: Continue current management and treatment plan. 01/14: continue current management and treatment plan. 01/15 Case reviewed with neurology EEG ordered rule out and receptor encephalitis rule out partial complex status Hematocrit decreasing check for stool guaiac check iron studies Continue treating antihypertensive with antihypertensives Monitor sodium 01/16 Patient's mood significantly anxious ruminating. Case extensively discussed with neurology Dr. López and with healthcare proxy. Patient markers for autoimmune encephalitis and CSF were not able to be completed and will need repeat lumbar puncture per neurology this senior copywriter also agrees and case discussed with healthcare proxy who agrees with repeat LP. Patient noted to have positive blood in his stool and diarrhea. Hospitalist service will follow-up and will most likely need to be seen by Gastroenterology. Iron studies completed. Monitor CBC hyponatremia has normalized patient may have been taking in excess fluids. Discharge planning continues patient scheduled when stable to go to the [facility] having a very difficult time with this transition 01/18/25 Pt with significant anxiety rumination results from LP not yet back has alprazolam prn olanzapine depakote not stabilizing anxiety case reviewed extensively with hcp pt pending placement at [facility] 01/19/25 pt pending extensive csf panel ? start low dose escitalopram obsessional anxiety 01/22/2025 Monitor response to mirtazapine patient benefits from repetitive reassurance seems more linear and thoughts continue Depakote olanzapine will add low-dose mirtazapine monitor response. Pending results of CSF for autoimmune and paraneoplastic panel 01/23/2025 Check sodium continue Depakote olanzapine alprazolam seem more organized CSF results pending 01/25: Continue current treatment regimen. 01/26/25 Mild hyponatremia hematocrit slightly trending down case reviewed with hematology recheck sodium CBC pending Patient aware of upcoming discharge plan. 01/27/25: Patient visible in common areas, watching TV/movie. Refused [facility] I prefer watching this than go there . Report feeling safe here. He talks about future plans and plans with bother. Appear anxious which could be baseline, distracted during assessment, talkative, making comments regarding shoes, and this provider's outfit. Per nursing, patient slept for 5 hours, forgetful, ate meals and then saying he has not eaten. Remain on chopped diet. Tentative to be discharged early next week per treatment team. Na 134; Low but improved. VPA level low at 44.6 01/28/25: Patient slept for 5 hours, normal appetite. Blood pressure running low in the morning, cardiac medication was held but given when blood pressure is back up to normal. Visible, some racing thoughts, but less intrusive, redirectable, less labile He states that inside he feel anxious but how do I look from outside? . Want this provider to call his brother to tell him that he has a koenig in his wallet, asked for papers to ride his thoughts down. Reviewed with nursing regarding Sodium level which is fluctuated and which could be at baseline on low side. Total of fluid only consume of about 900ml. ALl recorded from meal/food intake. Nursing reports no excessive drinking. Will continue to monitor. Sodium on 01/27 back to 132-same as on 01/26. Slightly elevated on BUN. Patient educated on: diagnosis, medication risk/benefits and therapeutic strategies Informed Consent: understands and further education needed Reason for continued inpatient stay Substantial Risk for: med/psych decompensation Time Spent With Patient Time: Total time managing care of this patient today ____ minutes.
[2025-01-28] MEDS: Aspirin Enteric Coated 81 MG TABLET.DR PO (19:58)
--- NOTE | 2025-01-29 07:47 | P.DS_ITS ---
DS: Providers Provider Date of Service: 01/29/25 Date of admission: 12/12/24 18:06 Date of discharge: 01/29/25 Primary care physician: Juancho Physician Admitting clinician: Nirali Albarran Attending physician on admission: Ish Verdin Consults: Discharge Summary Signed Patient: Ulisses Kitchen MR#: [id number] : 1950 Acct:[id number] Age/Sex: 74 / M ADM Date: 12/05/24 Loc: [facility] 486-1 Date of Discharge: Attending Dr: Fili Hampton MD cc: Rosaline Smith RADIO DISC JOCKEY; Fili Hampton MD~ DS: Providers Provider Date of Service: 12/12/24 Date of admission: 12/05/24 22:01 Date of discharge: 12/12/24 Primary care physician: Rosalnie Smith NP Consults: 12/05/24 19:43 ED CARE Team Crisis Consult Stat Comment: Reason for consultation: Evelyn 12/05/24 20:58 Consult to Psychiatry Stat Consulting Provider: [facility] Psych Covering Reason for consultation: manic/paranoid Has provider been notified: No 12/06/24 00:12 Consult to Psychiatry Routine Consulting Provider: [facility] Psych Covering Reason for consultation: Psychosis 12/07/24 11:00 Consult to Pulmonology Routine Consulting Provider: [facility] Pulmonology Services Reason for consultation: hypoxia, unclear etiology 12/11/24 10:36 Inpt CARE Team Crisis Consult Routine Comment: Reason for consultation: medically cleared, disorganized, perseverates, ?geripsych 12/11/24 14:13 Consult to Psychiatry Routine Consulting Provider: [facility] Psych Covering Reason for consultation: disorganized, not at baseline Medical discharge summary DS: Diagnosis Discharge Diagnosis (1) Manic behavior: Status: Acute DS: Summary Hospital Course Hospital Course: from initial hpi: 74 years old man was brought to the emergency department on section 12 from home because he is having increased paranoia and agitation. He was found to be quite hypoxic, 76% on room air. HPI was when able to obtain directly from the patient due to altered mental status. He was not able to answer questions appropriately and uncooperative with the interview. According to prior ED note patient has a sleep disorder. hospital course: Patient was admitted for acute hypoxic respiratory failure of unclear etiology. At time of discharge on room air. Unclear if patient was ever truly hypoxic, workup was negative and ABG unremarkable could be false low reading due to peripheral vasoconstriction. Probe on ear did not read hypoxia. There may also be some nocturnal hypoxia which can be followed outpatient. For hypertensive urgency was resumed on losartan and resolved. For psychiatric disorder with evelyn was seen by Psychiatry who started patient on Trileptal, Atarax, Ativan taper, Haldol. At time of discharge patient somewhat improved but still very disorganized with poor memory and fixations was seen by care team who recommended admission to psychiatric. Patient is on Descovy for prep. For BPH was continued on Flomax and finasteride. Time Attestation Discharge Coordination Time (in mins): 34 Quality: Safe Use of Opioids Does Pt have an Active Cancer Diagnosis on the Problem List?: No Quality: Stroke Does the patient have a stroke diagnosis?: No Physical Exam Exam: Exam: General: AO X 3, no acute distress Resp: CTA bilateral, no accessory muscles used CVS: S1,S2,RRR GI: soft, non tender, non distended Neuro: motor grossly intact, alert Psych: strange affect, ? insight, appears intellegent and understands much of medical condition but perseverates and has poor retention of new information Vital Signs: Vital Signs: Last Vital Signs Temp 98.1 F 12/12/24 07:48 Pulse 57 12/12/24 07:48 Resp 20 12/12/24 07:48 BP 127/73 12/12/24 07:48 Pulse Ox 93 12/12/24 07:48 O2 Del Method Room Air 12/12/24 07:48 O2 Flow Rate 4 12/10/24 12:00 FiO2 60 12/06/24 00:57 BMI result Body Mass Index 18.4 Discharge Plan Discharge Anticipated Discharge Date/Time: 12/12/24 14:12 Patient Disposition: Xfer Psychiatric Hosp Discharge Diagnosis: evelyn, hypoxia Referrals: Rosaline Smith NP [Primary Care Provider, Internal Medicine] - 1 Week Discharge Medications: New haloperidol 5 mg Tablet 5 mg PO BID PRN (Reason: Agitation) Qty: 0 0RF oxcarbazepine 300 mg Tablet 300 mg PO BID Qty: 0 0RF lorazepam 0.5 mg Tablet 0.25 mg PO BID PRN (Reason: Severe anxiety) Qty: 0 0RF hydroxyzine HCl 25 mg Tablet 25 mg PO Q6H PRN (Reason: Anxiety) Qty: 0 0RF Continued valacyclovir 500 mg tablet 500 mg PO DAILY tamsulosin 0.4 mg capsule 0.8 mg PO BEDTIME omeprazole 20 mg capsule,delayed release(DR/EC) 20 mg PO BEDTIME losartan 100 mg tablet 100 mg PO DAILY finasteride 5 mg tablet 5 mg PO DAILY hydroxyzine pamoate 25 mg capsule 25 mg PO BEDTIME trospium 20 mg tablet 20 mg PO BID Descovy 200-25 mg tablet 1 tab PO DAILY Gemtesa 75 mg tablet 75 mg PO DAILY Discontinued venlafaxine 37.5 mg capsule,extended release 24hr 37.5 mg PO DAILY lorazepam 0.5 mg tablet 0.5 mg PO DAILY PRN (Reason: anxiety) Diet: Advance to usual diet Activity on Discharge: As tolerated Stand Alone Forms: Patient Portal Discharge page Print Language: Luxembourger Care Plan Goals: Recovery Health Concerns: Altered mental status Plan of Treatment: Maty psych Assessment: See above Dictated By: Fili Hampton MD Signed By: <Electronically signed by Fili Hampton MD> 12/12/24 1706 DD/ 1414 TD/TT: 12/12/24 1414 Third Cook: MARGARET 12/14/24 12:00 Consult to Neurology Routine Consulting Provider: [facility] Reason for consultation: see head ct worsening cognition x 2-3 months?further work up Has provider been notified: No 12/15/24 11:13 Consult to Hospitalist Routine Comment: Consulting Provider: [facility] Hospitalists Reason For Exam: hypertension/brain abn see mrisee neuro note 12/20/24 11:43 Consult to Hospitalist Routine Comment: Consulting Provider: [facility] Hospital[facility] Reason For Exam: ongoing htn in context of brain vascular changes p 01/15/25 08:58 Consult to Nephrology Routine Consulting Provider: [facility] Reason for consultation: intermittant hyponatremia ? urea ? salt 01/16/25 16:30 Consult to Neurology Routine Consulting Provider: [facility] Reason for consultation: ? dx remains unclear ? need for additional lp ? recommendations Neurology Consult Note Signed Patient: Ulisses Kitchen MR#: [id number] : 1950 Acct:[id number] Age/Sex: 74 / M Loc: [facility] 185-[address]: Ish Verdin MD cc: Carolin López MD~ History of Present Illness Data of Consult Service Date: 01/17/25 Primary Care Provider: Unknown Physician HPI Reason for consult: Encephalopathy 74 years old man with a subacute onset of neuropsychiatric syndrome resulting in cognitive and psychotic symptomatology. Is testing for seizure D was negative. Recent EEG did not many significant abnormality other than mild slowing. Dr. Verdin and I had multiple communications regarding his further workup. My recommendation was to transfer him to a tertiary care institution but he has tried in multiple places and apparently that was not successful. With that we have decided to pursue any further testing on are and. We discussed potential value of CSF analysis including autoimmune encephalitis panel in a lumbar puncture was arranged. So far there has been no evidence of overt convulsion type of seizure. 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 If so, by whom?: No Do you feel safe in your current relationship?: No Current Relationship Is there a partner from a previous relationship who is making you feel unsafe now?: No Are you made to feel afraid or neglected: No Are you DNR?: No Advance Directives: No Advance Directives Information Provided: No Do you have thoughts of harming others: None Do you have a plan to hurt others: No Plan Recently lost weight without trying: No Eating poorly because of decreased appetite: No Nutrition Risks: No Nutritional Risk Poor oral hygiene: No service: No Travel History Ebola Risk: Travel/Contact With Anyone From Affected Area/s: No Has Patient Experienced Ebola Symptoms: No Meds Allergies Allergy/AdvReac Type Severity Reaction Status Date / Time No Known Allergies Allergy Verified 12/16/24 19:54 Active Medications: Current Medications Acetaminophen (Acetaminophen 325 Mg Tablet) 650 mg PO Q6H PRN PRN Reason: Headache/Pain, Scale 1-10 Al Hydroxide/Mg Hydroxide (Magnesium Hydrox/Alum Hydrox 30 Ml Oral.Susp) 30 ml PO Q6H PRN PRN Reason: Heartburn/Nausea Alprazolam (Alprazolam 0.25 Mg Tablet) 0.125 mg PO TID PRN PRN Reason: Anxiety Last Admin: 01/16/25 08:45 Dose: 0.125 mg Amlodipine Besylate (Amlodipine Besylate 10 Mg Tablet) 10 mg PO BEDTIME OTILIA; Protocol Last Admin: 01/16/25 20:23 Dose: 10 mg Aspirin (Aspirin Enteric Coated 81 Mg Tablet.) 81 mg PO BEDTIME OTILIA Last Admin: 01/16/25 20:19 Dose: 81 mg Atorvastatin Calcium (Atorvastatin Calcium 40 Mg Tablet) 40 mg PO BEDTIME OTILIA Last Admin: 01/16/25 20:19 Dose: 40 mg Clonidine HCl (Clonidine Hcl 0.1 Mg Tablet) 0.1 mg PO BID PRN; Protocol PRN Reason: severe anxiety Last Admin: 12/18/24 20:33 Dose: 0.1 mg Divalproex Sodium (Divalproex Sodium Sprinkles 125 Mg Cap.Spr) 250 mg PO TID OTILIA Last Admin: 01/17/25 14:56 Dose: 250 mg Finasteride (Finasteride 5 Mg Tablet) 5 mg PO DAILY OTILIA Last Admin: 01/17/25 08:17 Dose: 5 mg Hydralazine HCl (Hydralazine Hcl 25 Mg Tablet) 25 mg PO TID OTILIA; Protocol Last Admin: 01/17/25 14:56 Dose: 25 mg Lactase (Lactase Tablet) 1 tab PO TIDAC OTILIA Loperamide HCl (Loperamide Hcl 2 Mg Capsule) 2 mg PO Q6H PRN PRN Reason: Diarrhea Losartan Potassium (Losartan Potassium 50 Mg Tablet) 100 mg PO DAILY OTILIA; Protocol Last Admin: 01/17/25 08:17 Dose: 100 mg Magnesium Hydroxide (Milk Of Magnesia 30 Ml Oral.Susp) 30 ml PO DAILY PRN PRN Reason: Constipation Last Admin: 12/19/24 21:38 Dose: 30 ml Melatonin (Melatonin 3 Mg Tablet) 6 mg PO BEDTIME [facility] Last Admin: 01/16/25 20:18 Dose: 6 mg Memantine (Memantine Hcl 5 Mg Tablet) 5 mg PO BID [facility] Last Admin: 01/17/25 08:20 Dose: 5 mg Olanzapine (Olanzapine 2.5 Mg Tablet) 2.5 mg PO Q4H PRN PRN Reason: anxiety/restlessness Last Admin: 01/16/25 11:08 Dose: 2.5 mg Olanzapine (Olanzapine 5 Mg Tablet) 5 mg PO BEDTIME OTILIA Last Admin: 01/16/25 20:18 Dose: 5 mg Olanzapine (Olanzapine 2.5 Mg Tablet) 2.5 mg PO DAILY [facility] Last Admin: 01/17/25 08:20 Dose: 2.5 mg Omeprazole (Omeprazole 20 Mg Capsule.Dr) 20 mg PO BEDTIME [facility] Last Admin: 01/16/25 20:19 Dose: 20 mg Tamsulosin HCl (Tamsulosin Hcl 0.4 Mg Capsule) 0.8 mg PO BEDTIME [facility] Last Admin: 01/16/25 20:19 Dose: 0.8 mg Tolterodine Tartrate (Tolterodine Tartrate La 4 Mg Cap.Er.24h) 4 mg PO DAILY [facility] Last Admin: 01/17/25 08:19 Dose: 4 mg Valacyclovir HCl (Valacyclovir Hcl 500 Mg Tablet) 500 mg PO DAILY [facility] Last Admin: 01/17/25 08:20 Dose: 500 mg Home Medications Medication Instructions Recorded Confirmed Last Taken Type emtricitabine 200 mg-tenofovir 1 tab PO DAILY 12/05/24 12/12/24 Unknown History alafenamide fumarate 25 mg tablet (Descovy) finasteride 5 mg tablet 5 mg PO DAILY 12/05/24 12/12/24 Unknown History losartan 100 mg tablet 100 mg PO DAILY 12/05/24 12/12/24 Unknown History omeprazole 20 mg capsule,delayed 20 mg PO BEDTIME 12/05/24 12/12/24 Unknown History release tamsulosin 0.4 mg capsule 0.8 mg PO BEDTIME 12/05/24 12/12/24 Unknown History trospium 20 mg tablet 20 mg PO BID 12/05/24 12/12/24 Unknown History valacyclovir 500 mg tablet 500 mg PO DAILY 12/05/24 12/12/24 Unknown History vibegron 75 mg tablet (Gemtesa) 75 mg PO DAILY 12/05/24 12/12/24 Unknown History Physical Exam Vital Signs: Vital Signs: Last Vital Signs Temp 96.4 F L 01/17/25 08:16 Pulse 72 01/17/25 14:54 Resp 18 01/17/25 08:16 BP 142/75 H 01/17/25 14:54 Pulse Ox 93 01/17/25 08:16 O2 Del Method Room Air 01/17/25 08:16 BMI result Body Mass Index 21.5 Neuro: Other: I saw him earlier this morning when he was in his bed and sleeping. I went back later in the afternoon when he was sitting and talking to someone. 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 There was no obvious abnormal posturing or tremor. He was able to get up and walk around with no significant difficulty. Results Labs 01/12/25 13:18 document embedded image 01/16/25 07:49 document embedded image Microbiology Microbiology Results: Microbiology 12/19/24 11:15 Spine Fungal Identification - Preliminary No growth after 3 weeks. 12/19/24 11:15 Cerebrospinal Fluid Gram Stain - Final 12/19/24 11:15 Cerebrospinal Fluid Fluid Description - Final 12/19/24 11:15 Cerebrospinal Fluid CSF Culture - Final No growth after 3 days. Assessment and Plan (1) Encephalopathy: Qualifiers: Encephalopathy type: unspecified encephalopathy Qualified Code(s): G93.40 - Encephalopathy, unspecified Status: Acute 74 years old man with multifactorial neuropsychiatric syndrome. Psychotic symptoms have appeared during last few months and other than vascular disease and cerebral degeneration, no obvious etiology has been confirmed. EEG did not reveal any epileptic discharge. Laboratories so far have been negative including test for CJD. Plan is to have another sample of CSF and sent for routine CSF studies and autoimmune encephalitis panel. Until then, symptomatic conservative management continuous. Procedures Date of Service Date of Service: 01/17/25 Dictated By: Carolin López MD Signed By: <Electronically signed by Carolin López MD> 01/17/25 1554 DD/ 1547 TD/TT: 01/17/25 1547 Third Cook: 01/17/25 13:28 Consult to Hematology / Oncology Routine Consulting Provider: [facility] Oncology/Hematology Reason for consultation: Anemia, Rule out TTP [address] [address] Neurology Consult Note Signed with Addenda Patient: Ulisses Kitchen MR#: [id number] : 1950 Acct:[id number] Age/Sex: 74 / M Loc: [facility] 185-[address]: Ish Verdin MD cc: Carolin López MD~ ADDENDUM His CSF protein, autoimmune encephalitis panel, and paraneoplastic panel or all negative. This makes any of these diagnoses and an inflammatory process highly unlikely. Likely diagnosis is combination of vascular + degenerative disease of brain, more so of vascular than degenerative. Serum test for Alzheimer was negative. Potentially, a test like FDG PET scan may help us understand relative functionality of his brain especially different lobes of brain, it probably would not make any difference in terms of his management. Symptomatic treatment is recommended. Addendum Dictated By: Carolin López MD Attending physician on discharge: Ish Verdin Discharging clinician: Ish Verdin DS: Diagnosis Discharge Diagnosis (1) Vascular dementia of acute onset with behavioral disturbance: Status: Acute (2) Major 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, with agitation: Status: Acute (3) Anemia: Status: Acute (4) Hypertension: Status: Acute (5) OCD (obsessive compulsive disorder): Status: Acute (6) Swallowing difficulty: Status: Acute DS: Medications Discharge Medications Home Medications: Previous Rx's ?Medication ?Instructions ?Recorded alprazolam 0.25 mg tablet 0.125 mg (1/2 x 0.25 mg) PO TID 30 01/26/25 days #45 tabs aluminum-magnesium hydroxide 200 30 ml PO Q6H PRN Hear tburn/Nausea 01/26/25 mg-200 mg/5 mL oral suspension 30 days #100 mL (MAG-AL) amlodipine 10 mg tablet 10 mg PO BEDTIME 30 days #30 tabs 01/26/25 atorvastatin 40 mg tablet 40 mg PO BEDTIME 30 days #30 tabs 01/26/25 divalproex 125 mg capsule,delayed 250 mg (2 x 125 mg) PO TID 30 days 01/26/25 release sprinkle #180 caps escitalopram oxalate 5 mg tablet 5 mg PO DAILY 30 days #30 tabs 01/26/25 finasteride 5 mg tablet 5 mg PO DAILY 30 days #30 ta bs 01/26/25 hydralazine 25 mg tablet 25 mg PO TID 30 days #90 tab s 01/26/25 lactase 3,000 unit tablet 3,000 unit PO TIDAC 30 days #90 01/26/25 (Dairy-Aid) tabs loperamide 2 mg capsule 2 mg PO Q6H PRN Diarrhea 30 days 01/26/25 #90 caps losartan 100 mg tablet 100 mg PO DAILY 30 days #30 tabs 01/26/25 melatonin 3 mg tablet 6 mg (2 x 3 mg) PO BEDTIME 3 0 days 01/26/25 #60 tabs olanzapine 5 mg tablet 5 mg PO BID 30 days #60 tabs 01/26/25 omeprazole 20 mg capsule,delayed 20 mg PO BEDTIME 30 d ays #30 caps 01/26/25 release oxcarbazepine 300 mg tablet 300 mg PO BID 30 days #60 tabs 01/26/25 tamsulosin 0.4 mg capsule 0.8 mg (2 x 0.4 mg) PO BEDTI ME 30 01/26/25 days #60 caps tolterodine 4 mg capsule,extended 4 mg PO DAILY 30 day s #30 caps 01/26/25 release 24 hr valacyclovir 500 mg tablet 500 mg PO DAILY 30 days #30 tabs 01/26/25 Mental Status Exam Mental Status Exam Narrative: Appearance: Casually dressed, adequate hygiene, kempt hair Behavior: Anxious cooperative throughout the interview. Talkative. Ruminating. Eye contact is appropriate Speech: Normal volume and prosody, Thought process: Disorganized, less tangential, circumstantial, some periods of more linear thoughts and need for repetition Thought content: Ruminating obsessional mostly nonlinear Mood: Anxious Affect: less Labile SI:denies HI:denies VH/AH:none Delusions: possible Insight/judgment:some improvement of insight and judgment Memory/cog: Alert, oriented person, place, and time. grossly intact to conversational testing Data Data Completed and Pending Completed studies during hospitalization [Text1]: 01/17/25 01/17/25 01/24/25 07:24 17:30 07:11 WBC RBC Hgb Hct MCV MCH MCHC RDW Plt Count MPV Immature Gran % (Auto) Neut % (Auto) Lymph % (Auto) [place] % (Auto) Eos % (Auto) Baso % (Auto) Lymph # (Auto) [place] # (Auto) Eos # (Auto) Baso # (Auto) Abs Immat Gran (auto) Absolute Neuts (auto) Absolute Nucleated RBC Nucleated RBC % (auto) Sodium 135 Potassium 4.1 Chloride 106 Carbon Dioxide 22 Anion Gap 11 L BUN 19 H Creatinine 0.81 Estim Creat Clear Calc 71.1 Estimated GFR > 60 Random Glucose Fasting Glucose 123 H Calcium 9.2 Total Bilirubin 0.9 AST 20 ALT 20 Alkaline Phosphatase 51 Ammonia Total Protein 5.9 L Albumin 3.8 CSF Oligoclonal Bands Absent Valproic Acid Double Strand DNA Ab <1 01/26/25 01/27/25 01/28/25 07:22 07:23 08:20 WBC 5.5 RBC 3.34 L Hgb 11.9 L Hct 32.7 L MCV 97.9 MCH 35.6 H MCHC 36.4 H RDW 12.9 Plt Count 177 D MPV 9.4 Immature Gran % (Auto) 0.2 Neut % (Auto) 55.6 Lymph % (Auto) 28.9 [place] % (Auto) 12.6 H Eos % (Auto) 1.6 Baso % (Auto) 1.1 Lymph # (Auto) 1.6 [place] # (Auto) 0.7 Eos # (Auto) 0.1 Baso # (Auto) 0.1 Abs Immat Gran (auto) 0.01 Absolute Neuts (auto) 3.0 Absolute Nucleated RBC 0.000 Nucleated RBC % (auto) 0.0 Sodium 132 L 134 L 132 L Potassium 4.0 4.3 3.5 Chloride 102 101 100 Carbon Dioxide 23 27 24 Anion Gap 11 L 10 L 12 BUN 19 H 18 H 17 H Creatinine 0.79 0.76 0.74 Estim Creat Clear Calc 71.7 74.6 76.6 Estimated GFR > 60 > 60 > 60 Random Glucose 93 83 158 H Fasting Glucose Calcium 9.3 9.7 9.4 Total Bilirubin 1.1 H AST 21 ALT 19 Alkaline Phosphatase 56 Ammonia 33 Total Protein 6.4 L Albumin 4.0 CSF Oligoclonal Bands Valproic Acid 44.6 L Double Strand DNA Ab 01/29/25 07:08 WBC RBC Hgb Hct MCV MCH MCHC RDW Plt Count MPV Immature Gran % (Auto) Neut % (Auto) Lymph % (Auto) [place] % (Auto) Eos % (Auto) Baso % (Auto) Lymph # (Auto) [place] # (Auto) Eos # (Auto) Baso # (Auto) Abs Immat Gran (auto) Absolute Neuts (auto) Absolute Nucleated RBC Nucleated RBC % (auto) Sodium Pending Potassium Pending Chloride Pending Carbon Dioxide Pending Anion Gap Pending BUN Pending Creatinine Pending Estim Creat Clear Calc Pending Estimated GFR Pending Random Glucose Pending Fasting Glucose Calcium Pending Total Bilirubin AST ALT Alkaline Phosphatase Ammonia Total Protein Albumin CSF Oligoclonal Bands Valproic Acid Double Strand DNA Ab 12/19/24 11:15 Spine Fungal Identification - Final No growth after 4 weeks. 01/18/25 11:25 Cerebrospinal Fluid Gram Stain - Final 01/18/25 11:25 Cerebrospinal Fluid Fluid Description - Final 01/18/25 11:25 Cerebrospinal Fluid CSF Culture - Final No growth after 3 days. 12/19/24 11:15 Cerebrospinal Fluid Gram Stain - Final 12/19/24 11:15 Cerebrospinal Fluid Fluid Description - Final 12/19/24 11:15 Cerebrospinal Fluid CSF Culture - Final No growth after 3 days. UN: 01/29/25 1131 PAGE 1 [facility] [address] [place] [id number] Folder Machine Adjuster: Jerry Rawls M.D. Specimen Inquiry Name: Ulisses Kitchen Age/Sex: 74/M : 1950 Unit#: [id number] Attend Dr: Ish Verdin MD Re12/12/24 Status: DIS IN [facility] Disch: 01/29/25 SPEC : [id number] RAQUEL: 01/18/25-112 STATUS: COMP REQ : [id number] RECD: 01/18/25-[address]: Carolin López MD COMP: 01/29/25-0852 ENTERED: 01/17/25-[address]: Ish Verdin MD Physician,Unknown ORDERED: Encephal Ab Aileen COMMENTS: PT NOT IN UNIT PEDRAKA 01 17 25 1023 Test Result Flag Reference MA2/TA Ab CSF NEGATIVE REFERENCE RANGE: NEGATIVE Myelin Ab CSF NEGATIVE REFERENCE RANGE: NEGATIVE DPPX Ab CSF NEGATIVE REFERENCE RANGE: NEGATIVE Tissue IFA Obs SEE NOTE No fluorescence pattern suggestive of the presence of autoantibodies to neuronal antigens ANNA1 HU Ab CSF NEGATIVE REFERENCE RANGE: NEGATIVE ANNA2 RI Ab CSF NEGATIVE REFERENCE RANGE: NEGATIVE ANNA3 Ab CSF NEGATIVE REFERENCE RANGE: NEGATIVE PCA1 YO Ab CSF NEGATIVE REFERENCE RANGE: NEGATIVE PCA2 Ab CSF NEGATIVE REFERENCE RANGE: NEGATIVE HEATING AND VENTILATING DRAFTER TR DNER Ab NEGATIVE REFERENCE RANGE: NEGATIVE AGNA SOX1 Ab NEGATIVE REFERENCE RANGE: NEGATIVE Amphiphysin Ab NEGATIVE REFERENCE RANGE: NEGATIVE CRMP5 CV2 Ab NEGATIVE REFERENCE RANGE: NEGATIVE GAD65 Ab CSF NEGATIVE REFERENCE RANGE: NEGATIVE Aquaporin 4 Ab NEGATIVE REFERENCE RANGE: NEGATIVE AQP4 IgG NEGATIVE REFERENCE RANGE: NEGATIVE This test was developed and its analytical performance characteristics have been determined by [employer]. It has not been cleared or approved by the FDA. This assay has been validated pursuant to the CLIA regulations and is used for clinical purposes. NMDAR1 Ab CSF NEGATIVE REFERENCE RANGE: NEGATIVE This test was developed and its analytical performance characteristics have been determined by [facility]. It has not been cleared or approved by the FDA. This assay has been validated pursuant to the CLIA regulations and is used for clinical purposes AMPAR1 Ab NEGATIVE REFERENCE RANGE: NEGATIVE AMPAR2 Ab CSF NEGATIVE REFERENCE RANGE: NEGATIVE GABABR Ab CSF NEGATIVE REFERENCE RANGE: NEGATIVE LGI1 Ab CSF NEGATIVE REFERENCE RANGE: NEGATIVE CASPR2 Ab CSF NEGATIVE REFERENCE RANGE: NEGATIVE VGKC Ab CSF <20 REFERENCE RANGE: <20 PMOL/L This test was developed and its analytical performance characteristics have been determined by [facility]. It has not been cleared or approved by the FDA. This assay has been validated pursuant to the CLIA regulations and is used for clinical purposes. Enceph Ab CSF SEE NOTE All anti-neuronal antibodies tested and reported were NEGATIVE in the Encephalitis Antibody Evaluation with Reflex to Titer and Line Blot, CSF PERFORMING SITE: [employer], [address] [place] [address] [employer] Assistant: REYNALDO GIRALDO MD,PHD,GIUSEPPE, CLIA: [id number] RUN: 01/29/25 1136 PAGE 1 [facility] [address] [place] [id number] Folder Machine Adjuster: Jerry Rawls M.D. Specimen Inquiry Name: Ulisses Kitchen Age/Sex: 74/M : 1950 Unit#: [id number] Attend Dr: Ish Verdin MD Re12/12/24 Status: DIS IN Location: [address] Disch: 01/29/25 SPEC : [id number] RAQUEL: 01/26/25 STATUS: COMP REQ : [id number] RECD: 01/26/[address] [facility] DR: Ish Verdin MD COMP: 01/26/25 ENTERED: 01/26/[address]: Physician,Unknown ORDERED: CBC Auto Diff Test Result Flag Reference WBC 5.5 4.8-10.8 X10*3/uL RBC 3.34 L 4.60-5.80 X10*6/uL HGB 11.9 L 14.0-18.0 g/dl HCT 32.7 L 42.0-52.0 % MCV 97.9 80.0-98.0 fL MCH 35.6 H 27.0-33.0 pg MCHC 36.4 H 31.0-36.0 g/dl RDW 12.9 11.0-16.0 % PLT 177 # 160-400 X10*3/uL MPV 9.4 9.4-12.4 fL Neut Pct Auto 55.6 45-73 % ImGran Pct Auto 0.2 0.0-0.4 % Lymp Pct Auto 28.9 20-40 % [place] Pct Auto 12.6 H 2-11 % Eos Pct Auto 1.6 0-4 % Baso Pct Auto 1.1 0-2 % NRBC Pct Auto 0.0 0.0-0.2 /100WBC ANC Neut Abs # 3.0 2.0-8.3 x10*3/uL ImGran Abs Auto 0.01 0.00-0.03 X10*3/uL Lymph Abs Auto 1.6 1.2-4.9 X10*3/uL [place] Abs Auto 0.7 0.1-1.2 X10*3/uL Eos Abs Auto 0.1 0.0-0.4 X10*3/uL Baso Abs Auto 0.1 0.0-0.2 X10*3/uL NRBC Abs Auto 0.000 0.0-0.012 X10*3/uL END OF END OF REPORT Name: Ulisses Kitchen Age/Sex: 74/M : 1950 Unit#: [id number] Attend Dr: Ish Verdin MD Re12/12/24 Status: DIS IN Location: [facility] 185-2 Disch: 01/29/25 SPEC : [id number] RAQUEL: 01/18/25-140 STATUS: COMP REQ : [id number] RECD: 01/18/25-[address] [facility] DR: Carolin López MD COMP: 01/18/25-1556 ENTERED: 01/18/25-[address]: Ish Verdin MD Physician,Unknown ORDERED: CSF Cell Ct Dif Test Result Flag Reference CSF Boyd CLEAR CSF Tube # 4 CSF Volume 3.0 ML CSF Col COLORLESS CSF WBC 0 MM*3 Body Fluid WBC is a total nucleated cell count. When a differential is performed, the specimen is concentrated by cytocentrifugation. This sometimes results in the number of cells in the differential being greater than the actual cell count performed on the non-concentrated specimen. CSF RBC 2 MM*3 The reference interval(s) and other method performance specifications are unavailable for this body fluid. Comparison of the result with concentration in the blood, serum, or plasma is recommended. CSF Lymph 50 % CSF Monos 42 % CSF Other Cells 8 % END OF REPORT Imaging Diagnostic Imaging Impressions Brain MRI 12/15/24 09:35 IMPRESSION: Acute nonhemorrhagic ischemia involving the right precentral gyrus and left middle frontal gyrus concerning for embolic etiology. Extensive white matter disease likely related to small vessel occlusive disease. 5 mm nodular lesion, frontal horn right lateral ventricle. Malignancy cannot be excluded. Recommend IV contrast enhanced MRI brain. Global cerebral atrophy. Electronically signed by: Vincent Pandya MD 12/15/2024 10:21 AM EDT Lumbar Puncture Fluoroscopy 12/19/24 10:45 IMPRESSION: Successful fluoroscopic guided L3-4 interlaminar lumbar puncture. Electronically signed by: Kevin Barahona MD 12/19/2024 12:36 PM EDT RP Head/Neck CTA 12/21/24 10:29 IMPRESSION: No main cerebral artery occlusion or embolus. Irregular calcified plaque at the proximal right ICA at representing less than 50% stenosis. No dissection. Probable 2 mm aneurysm, right A2 segment. This critical test result is communicated to: Electronically signed by: Vincent Pandya MD 12/21/2024 12:02 PM EDT RP Chest X-Ray 01/12/25 11:15 IMPRESSION: No acute disease. Hiatal hernia involving stomach fundus. Electronically signed by: Mario Gutiérrez MD 01/12/2025 11:28 AM EDT RP Cardiology Testing Electrocardiograph Report Signed Patient: Ulisses Kitchen MR#: [id number] : 1950 Acct:[id number] Age/Sex: 74 / M ADM Date: 12/12/24 Loc: [facility] 185-[address]: Ish Verdin MD Ordering Physician: Reyna Varela Date of Service: 12/16/24 Procedure(s): ECG 12 lead EKG Accession Number(s): [id number] cc: Reyna VarelaDC~ Test Reason : bradycardic Blood Pressure : */* mmHG Vent. Rate : 59 BPM Atrial Rate : 59 BPM P-R Int : 226 ms QRS Dur : 100 ms QT Int : 424 ms P-R-T Axes : 41 -34 -64 degrees QTcB Int : 419 ms Sinus bradycardia with 1st degree A-V block Left axis deviation Incomplete right bundle branch block Nonspecific ST and T wave abnormality Abnormal ECG When compared with ECG of 06-Dec-2024 02:06, Nonspecific T wave abnormality has replaced inverted T waves in Lateral leads Referred By: Reyna Varela Electronically Signed By: JAVY SOTELO Dictated By: Javy Sotelo MD Signed By: <Electronically signed by Javy Sotelo MD in OV> 12/17/24 1507 DS: Summary Hospital Course Hospital Course: Signed Patient: Ulisses Kitchen MR#: [id number] : 1950 Acct:[id number] Age/Sex: 74 / M [facility]: Ish Verdin MD PSYCHIATRIC ADMISSION NOTE cc: Ish Verdin MD; Nirali Albarran RADIO DISC JOCKEY~ HPI Date of Service: 12/13/24 Chief Complaint: evelyn Sources of Information: patient interviewed, chart reviewed and crisis/core team assessment reviewed HPI Subjective Notes: Smith Warning and 3 Day Healthcare Proxy: Yes Guardianship: No Medical Problems Affecting Mental Status: Yes (Hypoxia-is the reason brought him to the hospital. It is resolved. ) Narrative: Per care team note: Patient is 74 years old assigned male at with pronounced she her hers who was brought to [facility] ED on 12/05/24 requesting to be turn into a female . He was prescribed as manic and was unable to answer questions appropriately. He was admitted medically due to being hypoxic. Patient was assessed on 12/11 by the care team. Thought process was tangential, disorganized, with some memory impairments, with some periods of lucidity. However patient later on did not exhibit any cognitive impairment. He scores 30 on mini-mental status exam. Speech remain is rapid. 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 Living in his own apartment. However the past couple of months, increased confusion, disorganized, has turned his business upside-down. And is no longer safe or able to care for self at home alone. On Maty/S1: Patient states the reason brought him here was I was suffering from lorazepam. I am coming down on lorazepam . Reports he was given Ativan 3- 4 weeks ago for anxiety from his outpatient psychiatrist/nurse practitioner, but it does not do anything good for him, reported that it makes him more anxious I trust her but I am met wrong nurse practitioner . Patient as if he can go to his room to get some water after the start of conversation. Denies mental health or substance use in the family. Denies substance use himself. But reports history of cocaine use in his 30s. Using marijuana twice monthly. Drinking 1 glass of 1 3 to 4 times a week. No smoking history. No signs symptoms of withdrawal from any substance at this time. Denies SI/SIB/HI/AVH. Denies history of suicidal thoughts, denied history of suicide attempts or self-harm behavior history. He has been seeing the outpatient nurse practitioner and therapist for 10-15 years. Denies mental health diagnosis at 1st but later on reported that he may have OCD which he is not sure what OCD behaviors he has. He recognized that they told me I am less competent . Reports declines in sleep only slept for 4-6 hours. Reports he has has been eating good I like to eat a lot of food. I am a healthy eater. Mood is very anxious and tired . Reports increased stress from his own business. He worries about his employee, and cannot manage his business whle he is in here. Which he is very perseverative on going home. Reports that being in here is doing no good for him is may make him more anxious. He has no memory regarding his mental status lately. He is aware that his business having some down time, increased stress from the business sometimes when it his slow, he even pay out of his pocket to pay for his employees and dad he has is he good boss. He does not want to be here, as he is wants step away from ideal life where he can close the abuse in his and enjoy his [place] [facility]. I want to get out of here to resume my life . He appears to be an severe anxious, perseverative on leaving, wants to leave by Wednesday. We will do collateral with outpatient nurse practitioner, therapist, and family members. He does not appear to be psychotic, but racing thoughts, disorganized, perseverative, poor insight of psychiatric history, poor insight of reason brought him to the hospital, poor judgment. However, he is alert and awakex3. Mood is anxious, speech WNL with mild pressure-, racing thoughts, Thoughts process and thoughts content is tangential and circumstances, not treatment focused even though he has no SI/SIB/HI/AVH. Per his outpatient therapist, patient has been paranoid and this is not at his baseline. Past Psychiatric History: Therapist: Krysten ([place], [place])-follow the same therapist since 2018 Outpatient psychiatric nurse practitioner Rosaline Smith- been with this provider for 10-15 years Denies hx of IPLOC/PHP or Detox denies hx of SI/SIB/HI/AVH. No prior suicide attempts or suicidal thoughts history. Medical Evaluation Reviewed: Yes [facility] Medical History Sleep trouble Family History: denies mental health illnesses and substance use in the family. Reports both parents was . He only has 1 brother - Gene who is very supportive to him. He is not sure if his brother is his healthcare proxy. He also has one stepdaughter. Per legal paper, she is his healthcare proxy. Social History: Lives alone. . no biological children. 1 step daughter (adult). He has some college level. Started to do his own business and he was 18 years old. 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 Reports he has 7 employees that he needs to taking care. Housing is stable, he is able to return after discharge. Substance History: History of using cocaine years ago in his 30s. Reports smoking marijuana twice a month with last smoke was 2 months ago. He hates cigarettes, therefore no cigarette smoking history. He drinks 1 glass of wine 3 to 4 times a week. Repeatedly saying just only 1 glass only. Trauma History: denies, however he reports being bullied by a lot of people when he was younger, Diagnostics Vital Signs (24Hr): Vital Signs - 24 hr 12/12/24 18:44 12/13/24 07:01 12/13/24 08:10 Temperature 98.5 F 97.3 F 97.8 F Pulse Rate 84 66 70 Respiratory Rate 18 18 18 Blood Pressure 164/87 H 153/83 H 167/90 H Pulse Oximetry 91 L 93 98 Oxygen Delivery Method Room Air Room Air Room Air BMI result Body Mass Index 21.0 Meds/Allergies Meds Home Medications Medication Instructions Recorded Confirmed Type emtricitabine 200 mg-tenofovir 1 tab PO DAILY 12/05/24 12/12/24 History alafenamide fumarate 25 mg tablet (Descovy) finasteride 5 mg tablet 5 mg PO DAILY 12/05/24 12/12/24 History losartan 100 mg tablet 100 mg PO DAILY 12/05/24 12/12/24 History omeprazole 20 mg capsule,delayed 20 mg PO BEDTIME 12/05/24 12/12/24 History release tamsulosin 0.4 mg capsule 0.8 mg PO BEDTIME 12/05/24 12/12/24 History trospium 20 mg tablet 20 mg PO BID 12/05/24 12/12/24 History valacyclovir 500 mg tablet 500 mg PO DAILY 12/05/24 12/12/24 History vibegron 75 mg tablet (Gemtesa) 75 mg PO DAILY 12/05/24 12/12/24 History Allergies Allergies Allergy/AdvReac Type Severity Reaction Status Date / Time lactose AdvReac Intermediate Diarrhea Verified 12/13/24 05:35 Mental Status Exam Mental Status Exam Narrative: Patient is alert and oriented x4; behavior is cooperative, friendly with moderate to severe anxiety; patient is not in distress; dressed in casual attire with kempt hair with adequate hygiene; mood is described as anxious and tired and affect congruent; eye contact appropriate; Speech is normal rate, volume and prosody and not pressured; no psychomotor agitation/retardation present; thought process is somewhat disorganized but not goal directed; Thought content is not focus on treatment, mainly focus on going home to take care of his own business, relevant topics discussed without any delusional content, paranoid ideation or grandiosity; denies any SI/SIB/HI. Denies AH and there is no evidence of perceptual disturbance. However, Patient's insight and judgment impaired. . Assessment & Plan Assessment & Plan (1) Severe anxiety: Status: Acute Code(s): F41.9 - Anxiety disorder, unspecified (2) Manic behavior: Status: Acute Code(s): F30.10 - Manic episode without psychotic symptoms, unspecified Plan HPI: Patient is 74 years old assigned male at with pronounced she her hers who was brought to [facility] ED on 12/05/24 requesting to be turn into a female . He was prescribed as manic and was unable to answer questions appropriately. He was admitted medically due to being hypoxic. Patient was assessed on 12/11 by the care team. Thought process was tangential, disorganized, with some memory impairments, with some periods of lucidity. However patient later on did not exhibit any cognitive impairment. He scores 30 on mini-mental status exam. Speech remain is rapid. 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 Formulation/clinical reasoning: Increase anxiety, worsening in the past couple of months, disorganized, racing thoughts, poor insight and poor judgment, poor sleep, somewhat confused/disorganized. Mental status change, not at baseline in the past couple months. Employees and his family concern about his current presentation. He is not able to care for himself at home. Given the above information, patient would be benefit in restrictive setting/environment for safety, diagnostic/diagnosis, cognitive testing, and provide therapeutic environment. Collateral with family and outpatient providers prior to discharge. Hospital course: Continue with home medications included medication for HIV preventative and herpes outburst. Haldol 5 mg b.i.d. p.r.n. for agitation. Elevated blood pressure which could be from anxiety, started clonidine 0.1 b.i.d. p.r.n.. We will continue to monitor. Increase Trileptal 300 b.i.d. to t.i.d. for mood. Melatonin 6 mg at bedtime for insomnia. He also have trazodone as needed for severe insomnia. Plan Patient on 15 minute checks for safety. Admitted to [facility]. [facility]. Singed 3-day notice on 12/12 which is on 12/15. Work with treatment team to do collateral and FLU appointments if possible for aftercare. 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 Brother requests to have a call back from provider. We will do it later on today. Step daughter is a healthcare proxy. O2 sats is in 90s since admitted Collateral note: Spoke with his brother Gene at [phone]: Brother does not think he is psychotic, paranoid. But agreed that worsening anxiety since was given as it Ativan that affect patient's memory. He he presented with strange behaviors/ abnormal behavior not able to say anything when people asking, and he did not go to the appointment . Brother believes that being forced to bring to the hospital, and being in the hospital setting can increase patient anxiety. Brother believes that reasonable for patient to be anxious being into this situation and worry about his business what happened to his business if he is in here . History of given Xanax prior to prescribed Ativan which is not doing any good for the patient. Brother expressed concerns of him going home with the state. He was updated with current presentation and medication changes included increase Trileptaly, melatonin added on for insomnia, clonidine for anxiety/elevated blood pressure, Haldol p.r.n. as well as PRNs given. Brother believes that patient can afford to pay for someone to taking care of him at home, cooking. Brother would like to get patient a new outpatient psychiatrist as current ran outpatient nurse practitioner is not responding, is hard to contact her. Brother receptive to the plan, and appreciate the phone call with the hope that the anxiety will be under control, and his brother can go home by Wednesday patient signed a 3 day notice which is up this Wednesday. Patient educated on: diagnosis, medication risk/benefits and therapeutic strategies Informed Consent: further education needed Reason for continued inpatient stay Substantial Risk for: med/psych decompensation Statement Statement: I have reviewed the history and physical and performed a pertinent examination on my patient. No changes have occurred unless specified. If the History and Physical was not performed prior to admission, the Hospitalist's service will be consulted for completing the admission physical. Time Spent With Patient Time: Total time managing care of this patient today ____ minutes. Dictated By: Nirali Albarran NP Signed By: <Electronically signed by Nirali Albarran> 12/13/24 195 <Electronically signed by Ish Vredin MD> 12/14/24 1025 <Electronically signed by Ish Verdin MD> 12/14/24 1025 HOSPITAL COURSE PATIENT WAS NOTED TO BE SOMEWHAT INTRUSIVE PREOCCUPIED jumping from 1 topic to another unable to give a clear history of recent events his working there were no gross motor findings on exam by Neurology attention short-term memory was significantly impaired he was quite distractible. He had been started on Trileptal this did cause hyponatremia and was discontinued. Patient's Mason and Gonzales were severely impaired the patient generally could not function and any group setting. 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 There had been some changes over the past year but others felt the past 2 months had shown clear marked decrease in the patient's functioning level of anxiety and agitation. Initial MRI with and without contrast did not show clear reason for acute changes. CT angiogram of the brain and neck were also relatively unremarkable. There was no obvious cause for such catastrophic changes and lumbar puncture was performed on 2 occasions to rule out infectious autoimmune or paraneoplastic cause for encephalopathy. Should be noted that the patient was noted to have HIV and past medical history but this was not correct the patient was on Descovy for sexual protection he was noted to be HIV negative on lab exam. There were no gross reasons for acute encephalopathy no obvious infectious metabolic or other cause. Patient did have an EEG which was negative and was repeated on 2 other occasions and was also negative. The patient did have CSF which was negative for prior and disease he was treated with olanzapine for racing thoughts and agitation in Depakote was added for control of anxiety agitation and irritability. There was a history of OCD and patient would frequently try to soothe her anxiety by needing things in a certain way having things right now for him in his certain way. Caused there was no clear diagnosis the patient did have an MRI with and without contrast and also CT angiogram of the neck and head. MRI to show white matter degenerative changes there was no evidence of encephalitis. CSF did not show evidence of inflammatory condition infection screen encephalitis screen anti neuronal screen were negative Suggesting more of a vascular dementia process. Eventually patient's antihypertensive regime was changed and was in much better control by the time of discharge. Behaviorally the patient continued to have anxiety distractibility would try and relieve anxiety by having certain rituals of control things needed to be done in his certain way things written out for him time management he could be expansive at times there was no evidence of harm to himself or others no hallucinations or delusional material mood could be erratic labile with a great deal of difficulty holding any linear conversation taking in information. Namenda had been started and discontinued on clear if contribute any confusion or behavioral problems. Did not use Aricept given bradycardia and also negative blood testing for Alzheimer's. Th e patient early on the hospital stay was able to list his brother jeny as healthcare proxy this whether a change patient at that time did appear to understand that something was neurologically wrong with him he could appreciate that his memory was not functioning properly and was cooperative with medical workup. Jeny Kitchen was activated as healthcare proxy and his care was redrew reviewed with him on multiple occasions. Patient did have someone else an employee of his who was listed as power of employment attorney this was not addressed during the hospitalization and we were able to refer the patient to memory care unit in [facility] for extended care. Problems behavioral issues with dementia would continue low-dose alprazolam olanzapine Depakote Consider Namenda rechallenge Needs frequent orientation and education Anemia 1 guaiac-positive stool hematocrit 32 would benefit from GI workup as outpatient per gastroenterology Patient had been listed previously as HIV positive patient did test HIV negative and he was on Descovy for prophylaxis given his sexual activitie Hypertension continue to monitor closely patient did have labile hypertension may have had untreated uncontrolled hypertension for a period of time prior to admission unclear patient was taking medication as prescribed No euphoria or giddiness at the time of discharge less labile patient had a hard time taking in issues related to his condition and would often stop the conversation at that point not wanting to no further Will benefit from psychiatric and medical follow-up He did have 1 choking episode prior to discharge in would benefit from chopped diet N DD 3 and water restriction 1500 mL monitor for hyponatremia outpatient Although there were no marked findings on MRI given the negative findings on CSF and negative test for tau on blood work patient appears to be suffering from a vascular dementia with potentially other etiologies that had not been characterized. Status at Discharge Cognitive/behavioral status at discharge: Patient had hard time cooperating with cognitive testing knows his name this food writer's name knows he is in hospital understands he is moving to a new place and that his furniture was transferred there. Does know he is having problems with his memory when asked about other routine testing he can intermittent intermittently get year and month at other times becomes overwhelmed Functional status at discharge: independent ambulation Overall status at discharge: patient is not back to baseline Time Spent with Patient Time attestation: Total time managing care of this patient today ___35_ minutes. Discharge Plan Discharge Anticipated Discharge Date/Time: 01/29/25 10:30 Patient Disposition: Xfer Other Discharge Diagnosis: Major 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 Question vascular dementia pending rule out autoimmune/paraneoplastic Anemia Hypertension Recent hyponatremia History of bradycardia recommendation for Holter monitor Referrals: [facility] [Other] - 01/29/25 11:00 am Referral Note: Transfer to [facility] and you will be provided primary care by Dr Rand Reese and psychiatry by Yahaira Ayala NP who visit the facility weekly. Carolin López MD [Physician, Neurology] - 03/12/25 11:20 am Referral Note: Your Follow up appointment has been scheduled for Wednesday March 12, 2025 at 11:20am with Dr. López. Discharge Medications: New atorvastatin 40 mg Tablet 40 mg PO BEDTIME 30 Days Qty: 30 1RF hydralazine 25 mg Tablet 25 mg PO TID 30 Days Qty: 90 1RF Protocol: Hold for SBP< HOLD for SBP < : 110 alprazolam 0.25 mg Tablet 0.125 mg PO TID 30 Days Qty: 45 1RF amlodipine 10 mg Tablet 10 mg PO BEDTIME 30 Days Qty: 30 1RF Protocol: Hold for SBP< HOLD for SBP < : 90 olanzapine 5 mg Tablet 5 mg PO BID 30 Days Qty: 60 1RF lactase [Dairy-Aid] 3,000 unit Tablet 3,000 unit PO TIDAC 30 Days Qty: 90 1RF divalproex 125 mg Capsule, Delayed Rel Sprinkle 250 mg PO TID 30 Days Qty: 180 1RF escitalopram oxalate 5 mg Tablet 5 mg PO DAILY 30 Days Qty: 30 1RF loperamide 2 mg Capsule 2 mg PO Q6H PRN (Reason: Diarrhea) 30 Days Qty: 90 0RF tolterodine 4 mg Capsule,Extended Release 24hr 4 mg PO DAILY 30 Days Qty: 30 1RF melatonin 3 mg Tablet 6 mg PO BEDTIME 30 Days Qty: 60 1RF MAG-AL 200-200 mg/5 mL Suspension 30 ml PO Q6H PRN (Reason: Heartburn/Nausea) 30 Days Qty: 100 0RF Continued valacyclovir 500 mg tablet 500 mg PO DAILY 30 Days Qty: 30 1RF tamsulosin 0.4 mg capsule 0.8 mg PO BEDTIME 30 Days Qty: 60 1RF omeprazole 20 mg capsule,delayed release(DR/EC) 20 mg PO BEDTIME 30 Days Qty: 30 1RF losartan 100 mg tablet 100 mg PO DAILY 30 Days Qty: 30 1RF finasteride 5 mg tablet 5 mg PO DAILY 30 Days Qty: 30 1RF Discontinued trospium 20 mg tablet 20 mg PO BID Descovy 200-25 mg tablet 1 tab PO DAILY Gemtesa 75 mg tablet 75 mg PO DAILY haloperidol 5 mg Tablet 5 mg PO BID PRN (Reason: Agitation) Qty: 0 0RF oxcarbazepine 300 mg Tablet 300 mg PO BID Qty: 0 0RF lorazepam 0.5 mg Tablet 0.25 mg PO BID PRN (Reason: Severe anxiety) Qty: 0 0RF hydroxyzine HCl 25 mg Tablet 25 mg PO Q6H PRN (Reason: Anxiety) Qty: 0 0RF Discharge Orders: Discharge Order (Routine); Ordered 01/29/25 Ordered By: Ish Verdin Diet: chopped diet Activity on Discharge: As tolerated Stand Alone Forms: Patient Portal Discharge page, Community Support Print Language: Luxembour[place] Care Plan Goals: decrease behavioral problems periods of anxiety intrusive ness agitation worsening attention memory ability to retain information will need f/u on csf autoimmune panel and praneoplastic panel has had some swallowing difficulties should be monitored poor safety awareness monitor sodium had recent hyponatremia anemia would benefit from gi follow up Requires neurological follow-up help clarify management of subacute onset of severe neurocognitive syndrome was seen by Dr. López inpatient and has follow- up outpatient Still pending results from CSF that were sent out Health Concerns: Major neurocognitive disorder with severe behavioral problems question multifactorial question vascular/hypertension and other etiologies Negative for tau Hypertension Hyponatremia currently normalized Swallowing difficulties question safety awareness they recommended chopped diet Patient has no real awareness of his cognitive and behavioral difficulties Plan of Treatment: [facility] setting for safety Monitor swallowing Medical and neurology follow-up Pending results of CSF ordered by Dr. López patient does have follow-up with Dr. López For behavioral problems has been on Depakote/olanzapine low-dose alprazolam question may have become more anxious and confused with Namenda History of OCD and anxiety low-dose escitalopram started at 5 mg Continue antihypertensives Would recommend GI workup with anemia Recommend Holter monitor Recommend outpatient swallowing study Consider outpatient referral to [facility]al Neurology at [facility] this can be done remotely Behavioral Neurology at [facility] can do a remote consult outpatient telephone [phone] Attempts to transfer inpatient to Neurology were not successful Assessment: Some anxiety future oriented looking forward to being out of the hospital not combative Discharge Date/Time: 01/29/25 10:53
[2025-01-29 08:19] LABS: Anion Gap 11 (12-20); Blood Urea Nitrogen 17 mg/dL (9-16); Calcium 9.3 mg/dL (8.4-10.2); Carbon Dioxide 23 mmol/L (22-29); Chloride 105 mmol/L (96-108); Creatinine Clr Calc Pharmacy 80.3; Estimated Glomerular Filt Rate > 60; Potassium 3.9 mmol/L (3.3-5.1); Sodium 135 mmol/L (135-145)
[2025-01-29 08:22] VITALS: BP 113/59; PULSE 73; RESP 18; TEMP 36.4; O2SAT 91
[2025-01-29] MEDS: Divalproex Sodium Sprinkles 125 MG CAP.DR.SPR 250 MG PO (08:24)
[2025-01-29 08:44] LABS: MA2/TA Ab CSF NEGATIVE
[2025-01-29 08:49] LABS: VGKC Ab CSF <20
[2025-01-29 08:51] LABS: AGNA (SOX1) Ab CSF NEGATIVE; ANNA1 (HU) Ab CSF NEGATIVE; ANNA2 (RI) Ab CSF NEGATIVE; ANNA3 Ab CSF NEGATIVE; Amphiphysin Ab CSF NEGATIVE; Aquaporin (AQP4) IgG CSF NEGATIVE; Aquaporin 4 Ab CSF NEGATIVE; CRMP5 (CV2) Ab CSF NEGATIVE; GAD65 Ab CSF NEGATIVE; Myelin Ab CSF NEGATIVE; PCA TR (DNER) Ab CSF NEGATIVE; PCA1 (YO) Ab CSF NEGATIVE; PCA2 Ab CSF NEGATIVE
[2025-01-29 08:52] LABS: AMPAR1 Ab CSF NEGATIVE; AMPAR2 Ab CSF NEGATIVE; CASPR2 Ab CSF NEGATIVE; GABABR Ab CSF NEGATIVE; LGI1 Ab CSF NEGATIVE; NMDAR1 Ab CSF NEGATIVE
== END 2025-01-29 10:53 | disposition other institution (70) | DRG 885 ==
PROVIDERS: Internal Medicine; Nurse Practitioner Family; Psychiatry & Neurology Neurology; Radiology Diagnostic Radiology; Admitting Provider Psychiatry & Neurology Psychiatry; Visit Provider Psychiatry & Neurology Psychiatry
PROC: 009U3ZZ Drainage of Spinal Canal, Percutaneous Approach (ICD-10-PCS; CPT 62270; principal; 2024-12-19 11:00)
DX: F30.10 Manic episode without psychotic symptoms, unspecified (principal); F01.518 Vascular dementia, unspecified severity, with other behavioral disturbance; G93.40 Encephalopathy, unspecified; E22.2 Syndrome of inappropriate secretion of antidiuretic hormone; F42.9 Obsessive-compulsive disorder, unspecified; R13.10 Dysphagia, unspecified; I10 Essential (primary) hypertension; E78.5 Hyperlipidemia, unspecified; N40.0 Benign prostatic hyperplasia without lower urinary tract symptoms; R90.89 Other abnormal findings on diagnostic imaging of central nervous system; K21.9 Gastro-esophageal reflux disease without esophagitis; B00.9 Herpesviral infection, unspecified; D64.9 Anemia, unspecified; R19.5 Other fecal abnormalities; Z79.899 Other long term (current) drug therapy
CPT/HCPCS: 36415; 62328; 70496; 70498; 70551; 70552; 71046; 80048; 80053; 80061; 80164; 80178; 81001; 81003; 82042; 82140; 82233; 82234; 82248; 82272; 82607; 82728; 82746; 82945; 83010; 83519; 83540; 83615; 83825; 83873; 83916; 83935; 84157; 84166; 84300; 84393; 85007; 85025; 85027; 85045; 85049; 85610; 85652; 86038; 86052; 86225; 86255; 86335; 86341; 86431; 86592; 86617; 86618; 86780; 86880; 87015; 87070; 87102; 87205; 87389; 87483; 87497; 89051; 92526; 92610; 93005; 95705; 95816; 95819; 99499; A9585; Q9967

== ENCOUNTER 2024-12-12 18:06 | Outpatient (BNV) | payer MEDICARE, OTHER, SELFPAY | END 2024-12-15 09:35 | PROVIDERS: Admitting Provider Psychiatry & Neurology Psychiatry; Visit Provider Radiology Diagnostic Radiology | DX: I67.82 Cerebral ischemia (principal) | CPT/HCPCS: 70551 ==

== ENCOUNTER 2024-12-12 18:06 | Outpatient (BNV) | payer MEDICARE, OTHER, SELFPAY | END 2025-01-18 13:30 | PROVIDERS: Admitting Provider Psychiatry & Neurology Psychiatry; Visit Provider Radiology Diagnostic Radiology | DX: G04.90 Encephalitis and encephalomyelitis, unspecified (principal) | CPT/HCPCS: 62328 ==

== ENCOUNTER 2024-12-12 18:06 | Outpatient (BNV) | payer MEDICARE, OTHER, SELFPAY | END 2024-12-21 10:30 | PROVIDERS: Admitting Provider Psychiatry & Neurology Psychiatry; Visit Provider Radiology Diagnostic Radiology | DX: I65.21 Occlusion and stenosis of right carotid artery (principal) | CPT/HCPCS: 70496; 70498 ==

== ENCOUNTER 2024-12-12 18:06 | Outpatient (BNV) | payer MEDICARE, OTHER, SELFPAY | END 2024-12-16 08:00 | PROVIDERS: Admitting Provider Psychiatry & Neurology Psychiatry; Visit Provider Internal Medicine | DX: I44.0 Atrioventricular block, first degree (principal); I45.10 Unspecified right bundle-branch block; R00.1 Bradycardia, unspecified | CPT/HCPCS: 93010 ==

== ENCOUNTER 2024-12-12 18:06 | Outpatient (BNV) | payer MEDICARE, OTHER, SELFPAY | END 2025-01-17 10:00 | PROVIDERS: Admitting Provider Psychiatry & Neurology Psychiatry; Visit Provider Psychiatry & Neurology Neurology | DX: G93.40 Encephalopathy, unspecified (principal) | CPT/HCPCS: 95717 ==

== ENCOUNTER 2024-12-12 18:06 | Outpatient (BNV) | payer MEDICARE, OTHER, SELFPAY | END 2025-01-12 11:15 | PROVIDERS: Admitting Provider Psychiatry & Neurology Psychiatry; Visit Provider Radiology Diagnostic Radiology | DX: R09.02 Hypoxemia (principal) | CPT/HCPCS: 71046 ==

== ENCOUNTER 2024-12-12 18:06 | Outpatient (BNV) | payer MEDICARE, OTHER, SELFPAY | END 2024-12-19 10:45 | PROVIDERS: Admitting Provider Psychiatry & Neurology Psychiatry; Visit Provider Radiology Diagnostic Radiology | DX: G93.40 Encephalopathy, unspecified (principal) | CPT/HCPCS: 62328 ==

== ENCOUNTER 2024-12-12 18:06 | Outpatient (BNV) | payer MEDICARE, OTHER, SELFPAY | END 2024-12-15 15:00 | PROVIDERS: Admitting Provider Psychiatry & Neurology Psychiatry; Visit Provider Psychiatry & Neurology Neurology | DX: G93.40 Encephalopathy, unspecified (principal) | CPT/HCPCS: 95816 ==

== ENCOUNTER → 2024-12-12 18:06 | Outpatient (BNV) | payer MEDICARE, OTHER, SELFPAY | PROVIDERS: Admitting Provider Psychiatry & Neurology Psychiatry; Visit Provider Psychiatry & Neurology Psychiatry | DX: G93.40 Encephalopathy, unspecified (principal); I10 Essential (primary) hypertension; F30.10 Manic episode without psychotic symptoms, unspecified; F42.9 Obsessive-compulsive disorder, unspecified | CPT/HCPCS: 99232 ==

== ENCOUNTER → 2024-12-12 18:06 | Outpatient (BNV) | payer MEDICARE, OTHER, SELFPAY | PROVIDERS: Admitting Provider Psychiatry & Neurology Psychiatry; Visit Provider Psychiatry & Neurology Neurology | DX: G93.40 Encephalopathy, unspecified (principal) | CPT/HCPCS: 99223 ==

== ENCOUNTER → 2024-12-12 18:06 | Outpatient (BNV) | payer MEDICARE, OTHER, SELFPAY | PROVIDERS: Admitting Provider Psychiatry & Neurology Psychiatry; Visit Provider Nurse Practitioner Psychiatric/Mental Health | DX: F41.9 Anxiety disorder, unspecified (principal); F30.10 Manic episode without psychotic symptoms, unspecified | CPT/HCPCS: 90792 ==

== ENCOUNTER → 2024-12-12 18:06 | Outpatient (BNV) | payer MEDICARE, OTHER, SELFPAY | PROVIDERS: Admitting Provider Psychiatry & Neurology Psychiatry; Visit Provider Nurse Practitioner Family | DX: I10 Essential (primary) hypertension (principal); G93.40 Encephalopathy, unspecified | CPT/HCPCS: 99223 ==

== ENCOUNTER → 2024-12-12 18:06 | Outpatient (BNV) | payer MEDICARE, OTHER, SELFPAY | PROVIDERS: Admitting Provider Psychiatry & Neurology Psychiatry; Visit Provider Nurse Practitioner Family | DX: E87.1 Hypo-osmolality and hyponatremia (principal) | CPT/HCPCS: 99221 ==

== ENCOUNTER 2025-01-18 14:00 | Day surgery (SDC) | payer MEDICARE, OTHER, SELFPAY ==
--- OUTSIDE RECORDS SUMMARY | 2024-04-27 09:27 | XMS_ITS | Encounter Summary ---
Author Organization [facility] Address [facility] [employer] [facility] [address] [place] [address] Phone Care Team Providers Care [employer] Name Role Phone Rosaline Smith NP Unavailable [phone] Neeru Vaughn FINANCIAL FOUNDATIONS REPRESENTATIVE Unavailable Que Madsen MD Unavailable Que Madsen MD Unavailable [phone] Rosaline Smith NP Primary Care Provider + [phone] Que Madsen MD Unavailable Encounter Details Date Type Department Care Team (Late st Contact Info) Description 04/27/2024 8:27 AM EST Hospital Encounter [facility] [address] [place] [id number] Crystal Foreman FINANCIAL FOUNDATIONS REPRESENTATIVE [address] [place] [address] [phone] [email or web address] Social History Tobacco Use Types Packs/Day Years Used Date Smoking Tobacco: Never Smokeless Tobacco: Never Alcohol Use Standard Drinks/Week Comments Yes 2 (1 standard drink = 0.6 oz pur e alcohol) weekly x1-2 Education Answer Date Recorded Are you interested in more education? Not on linda e 08/26/2022 Are you concerned about learning? Not on file 08/26/2022 No 08/26/2022 No 08/26/2022 Food Answer Date Recorded Within the past 6 months we worried whether our food would run out before we got money to buy more. Never True 10/04/2024 Within the past 6 months the food we bought just didn't last and we didn't have enough money to get more. Never True Residential Stability Answer Date Recor ded What is your housing situation today? I have jenaro sing 10/04/2024 How many times have you move d in the past 12 months? Zero (I did not move) 10/04/2024 Paying for Meds Answer Date Recorded Do you have trouble paying for medicines? No 10/04/2024 Paying Utility Bills Answer Date Record ed Do you have trouble paying your heating or elect ricity bill? No 10/04/2024 Transportation Answer Date Recorded Has the lack of transportati on kept you from medical appointments or from getting medications? No 10/04/2024 Digital Access Answer Date Recorded No 10/04/2024 Yes 10/04/2024 Do you have reliable internet access at home? Ye s 10/04/2024 Do you have a device (e.g., phone, tablet, computer) with a working camera? Yes 10/04/2024 Intimate Partner Violence Answer Date R ecorded Are you denied basic needs s uch as food, clothing, or medical care? No 11/07/2024 In the past 12 months have y ou been in a relationship with a person who hurts, threatens, or tries to control you? No 11/07/2024 Are you denied basic needs s uch as food, clothing, or medical care? No 11/07/2024 In the past 12 months have y ou been in a relationship with a person who hurts, threatens, or tries to control you? No 11/07/2024 Sex and Gender Information Value Date Recorded Sex Assigned at Male 04/08/2021 9:39 AM EST Legal Sex Male 6:20 PM EST Gender Identity Male 04/08/2021 9:39 AM EST Sexual Orientation Bisexual 10/29/2022 11 :58 AM EDT documented as of this encounter Functional Status * Calculated C-SSRS Risk Score (Lifetime/Recent) Answer Date of Assessment Author No Risk Indicated 11/07/2024 9:54 PM EDT Taylor Yap RN * [place] Suicide Severity Rating Scale (Screener/Recent Self-Report) Question Answer Date of Assessment Author 1. Wish to be (Past 1 Month) No 025 9:54 PM EDT Taylor Yap RN 2. Non-Specific Active Suici lv Thoughts (Past 1 Month) No 11/07/2024 9:54 PM EDT Josette Yap RN 6. Suicidal Behavior (Lifetime) No 9:54 PM EDT Taylor Yap RN documented as of this encounter Plan of Treatment Upcoming Encounters Date Type Department Care Team (Late st Contact Info) Description 07/17/2025 3:30 PM EDT Office Visit [facility] [address] [facility] [address] [place], [place] [phone] Rosaline Smith NP 14 [facility] [address] [place] [phone] [email or web address] documented as of this encounter Procedures Procedure Name Priority Date/Time Associated Diagnosis Comments XR KNEE 4 OR MORE VIEWS (LEFT) Urgent/patient waiting 04/27/2024 8:35 AM EST Left anterior knee pain Fall on stairs, initial encounter documented in this encounter Results * XR KNEE 4 OR MORE VIEWS (LEFT) (04/27/2024 8:35 AM EST) Anatomical Region Laterality Modality Knee Left Computed Radiogr aphy 04/27/2024 8:50 AM EST Impressions 04/27/2024 8:56 AM EST FINDINGS/IMPRESSION: Left Knee: No fracture or dislocation. Mild degenerative changes of the left knee joint. Possible small suprapatellar effusion, that assessment of each is limited due to overlying bandage. Mild infrapatellar soft tissue swelling. Vascular calcifications. Narrative 04/27/2024 8:56 AM EST XR KNEE 4 OR MORE VIEWS (LEFT) Referring clinician's provided indication for this examination in Epic: Pain; S/P Fall; tender base patella/ full ROM COMPARISON: None Procedure Note Yecenia Nichols MBBS - 04/27/2024 XR KNEE 4 OR MORE VIEWS (LEFT) Referring clinician's provided indication for this examination in Epic:Pain; S/P Fall; tender base patella/ full ROM COMPARISON: None IMPRESSION: FINDINGS/IMPRESSION: Left Knee: No fracture or dislocation. Mild degenerative changes of theleft knee joint. Possible small suprapatellar effusion, that assessment ofeach is limited due to overlying bandage. Mild infrapatellar soft tissueswelling. Vascular calcifications. us Crystal Foreman FINANCIAL FOUNDATIONS REPRESENTATIVE IMG XR LOWER EXTREMITY Mami l Result documented in this encounter Visit Diagnoses Not on filedocumented in this encounter Additional Health Concerns Assessment Noted Time PHQ-2 Depression Total Score: 0 09/01/19 18 1:08 PM EDT documented as of this encounter Care Teams [employer] Relationship Specialty Start Date End Date Rosaline Smith NP [address] [place] [address] [place] [address] PCP - General Internal Medicine 11/07/21 Rosaline Smith NP [address] [place] [address] [place] [address] Historical LMR Provider 02/13/17 Neeru Vaughn CNP 14 [facility] [address] [place] [address] Historical LMR Provider 02/13/17 Que Madsen MD [address] [place] [address] [place] [address] Historical LMR Provider 02/13/17 Que Madsen MD 14 [facility] [address] [place] [address] [email or web address] Insurance Assigned Provider 08/27/18 Que Madsen MD 14 [facility] [address] [place] [address] [email or web address] Insurance Assigned Provider 07/31/23 07/30/24 documented as of this encounter Additional Source Comments The information contained in this document represents components of the legal health record. It is not the complete legal health record.[facility]
--- OUTSIDE RECORDS SUMMARY | 2024-10-18 11:45 | XMS_ITS ---
Author Organization [facility] Address [address] [place] [phone] Care Team Providers Care College Instructor Name Role Phone MARLON CABA Unavailable [phone] REASON FOR VISIT PrEP F/U Social History Sex Assigned At : Social History Observation Description Sex Assigned At Male Encounters Encounter Location Date Provider Diagnosis [address] [id number] MARLON CABA Plan Of Treatment No Information Progress Notes * Dana KITCHENOB:1950 (74 yo M)Acc No.[id number]:10/18/2024 Progress Notes Patient: Patrick Ulisses venegas Provider: Linwood CABA :1950 A ge:74 Y S ex:Male Date:10/18/2024 Address:[address] [place], [place] [id number] Subjective: * Chief Complaints: * P rEP F/U * Electronic signature of MILDRED CABA CNM on 01/18/2025 at 06:43 PM EDT Sign off status: Pending * Provider: Linwood CABA Date: 10/18/2024 Generated for Lana mcneil/Parag/Ed on: 01/18/2025 06:43 PM EDT
--- OUTSIDE RECORDS SUMMARY | 2024-11-08 07:00 | XMS_ITS ---
Author Organization [facility] Address [address] [place] [phone] Care Team Providers Care Pullman Conductor Name Role Phone MARLON CABA Unavailable [phone] REASON FOR VISIT PrEP F/U Social History Sex Assigned At : Social History Observation Description Sex Assigned At Male Encounters Encounter Location Date Provider Diagnosis [address] [id number] MARLON CABA Plan Of Treatment No Information Progress Notes * Dana KITCHENOB:1950 (74 yo M)Acc No.[id number]:11/08/2024 Progress Notes Patient: Ulisses [place] Provider: Linwood CABA :1950 A ge:74 Y S ex:Male Date:11/08/2024 Address:[address] [place], [place] [id number] Subjective: * Chief Complaints: * P rEP F/U Billing Information: * Procedure Codes: * Electronic signature of MILDRED CABA CNM on 01/18/2025 at 06:41 PM EDT Sign off status: Pending * Provider: Linwood CABA Date: 11/08/2024 Generated for Lana mcneil/Parag/eTrikyitting on: 01/18/2025 06:41 PM EDT
--- OUTSIDE RECORDS SUMMARY | 2024-12-18 08:00 | XMS_ITS ---
Author Organization [facility] Address [address] [place] [id number] Care Team Providers Care Keno Manager Name Role Phone VANESSA SORENSEN Unavailable [phone] REASON FOR VISIT PrEP F/U Social History Sex Assigned At : Social History Observation Description Sex Assigned At Male Encounters Encounter Location Date Provider Diagnosis [facility] [address] [place], [place] [id number] 12/18/2024 VANESSA SORENSEN Plan Of Treatment No Information Progress Notes * Dana KITCHENOB:1950 (74 yo M)Acc No.[id number]:12/18/2024 Progress Notes Patient: Ulisses Livingston Provider: Stevie Sorensen NP :1950 A ge:74 Y S ex:Male Date:12/18/2024 Address:[address] [place], [place] [id number] Subjective: * Chief Complaints: * P rEP F/U Billing Information: * Procedure Codes: * Electronic signature of RANGEL SORENSEN NP on 01/18/2025 at 06:42 PM EDT Sign off status: Pending * Provider: Stevie Sorensen NP Date: 12/18/2024 Generated for [place] ng/Fasunnyg/eTransmitting on: 01/18/2025 06:42 PM EDT
--- NOTE | ~2025-01-18 | FL_ITS ---
EXAMINATION: XR LUMBAR PUNCTURE CLINICAL INFORMATION: encephalitis COMPARISON: None available. TECHNIQUE: Following explaining fluoroscopy-guided lumbar puncture procedure, benefits and risk, a written consent was obtained. Under fluoroscopy patient was placed prone and L4-5 disc level was selected and area marked on the skin. The marked area was cleaned and draped in usual sterile manner with 2% chlorhexidine solution. 1% lidocaine was inserted at puncture site. A small skin incision a 20-gauge spinal needle was inserted from the skin intrathecally at the L4-5 disc level. After removing stylet and observing CSF return, CSF was collected in 4 test tubes wire connecting cannula. Approximately 9 mL of clear CSF fluid was collected. Postprocedure stylet was reintroduced and needle withdrawn. Complete hemostasis was achieved at puncture site. Sterile dressing was applied post procedure. FINDINGS: Approximately 9 mL of clear CSF fluid was collected in 4 test tubes and sent to lab as per referring physician's orders. CSF pressure was not obtained. FLUOROSCOPY TIME: 22 seconds DOSE AREA PRODUCT: 572.8 uGy-m2 (microgray-meter squared) FL/FL guided lumbar puncture LP IMPRESSION: Successful fluoroscopy-guided L4-5 lumbar puncture performed without immediate complications. Electronically signed by: Nabil Olvera MD 01/18/2025 02:57 PM EDT
[2025-01-18 14:00] VITALS: BP 128/73; PULSE 70; RESP 20; TEMP 36.9; O2SAT 95
[2025-01-18 15:00] VITALS: BP 121/82; PULSE 70; RESP 18; TEMP 36.6; O2SAT 95
--- OUTSIDE RECORDS SUMMARY | 2025-01-18 18:42 | XMS_ITS | Encounter Summary ---
Author Organization [facility] Address Formerly [facility] [employer] [facility] [address] [place] [phone] Phone Care Team Providers Care Cytology Manager Name Role Phone Rosaline Smith NP Unavailable [phone] Neeru Vaughn EXERCISE MANAGER Unavailable [phone] Que Madsen MD Unavailable [phone] Que Madsen MD Unavailable [phone] Rosaline Smith NP Primary Care Provider + [phone] Rosaline Smith NP Unavailable [phone] Reason for Visit * Reason Onset Date Comments Call back requested 11/10/2024 Encounter Details Date Type Department Care Team (Late st Contact Info) Description 11/10/2024 Telephone [facility] [address] [phone] Rosaline Smith NP 14 [facility] [address] [place] [address] [phone] [email or web address] Call back requested Social History Tobacco Use Types Packs/Day Years [...] AM EDT documented as of this encounter Progress Notes * Prachi Mccormack RN - 11/14/2024 2:24 PM EDT Call returned to Krysten Stanford. Pt has concerns regarding another patient. * Iliana Jara MA - 11/14/2024 1:51 PM EDT Spoke with provider and she is willing to take any info that she might have on Ulisses, but she can not discuss anything with her as Ulisses has not given Rosaline permission to speak with her. * Rosaline Smith NP - 11/14/2024 9:50 AM EDT This person is not listed as someone I am able to speak to regarding patient. * Dior Groves - 11/10/2024 2:16 PM EDT Hannah (part of patient's support team) called she would like a call back to share [phone] documented in this encounter Plan of Treatment Upcoming Encounters Date Type Department Care Team (Late st Contact Info) Description 07/17/2025 3:30 PM EDT Office Visit [facility] [id number] [place] [address] Rosaline Smith NP [address] [phone] [email or web address] documented as of this encounter Visit Diagnoses Not on filedocumented in this encounter Additional Health Concerns Assessment Noted Time PHQ-2 Depression Total Score: 1 07/07/19 25 3:45 PM EDT documented as of this encounter Care Teams Cytology Manager Relationship Specialty Start Date End Date Rosaline Smith NP [address] [place] [phone] [email or web address] PCP - General Internal Medicine 11/07/21 Rosaline Smith NP [address] [place] [phone] [email or web address] Historical LMR Provider 02/13/17 Neeru Vaughn EXERCISE MANAGER [address] [place] [phone] [email or web address] Historical LMR Provider 02/13/17 Que Mdasen MD [address] [place] [phone] [email or web address] Historical LMR Provider 02/13/17 Que Madsen MD [address] [place] [phone] [email or web address] Insurance Assigned Provider 08/27/18 Rosaline Smith NP [address] [place] [phone] [email or web address] Insurance Assigned Provider 07/30/24 documented as of this encounter Additional Source Comments The information contained in this document represents components of the legal health record. It is not the complete legal health record.[facility]
--- OUTSIDE RECORDS SUMMARY | 2025-01-18 18:42 | XMS_ITS | Encounter Summary ---
Author Organization [facility] Address [facility] [employer] [facility] [address] [place] [address] Phone Care Team Providers Care Pointer Machine Operator Name Role Phone Rosaline Smith NP Unavailable [phone] Shannan Vaughnanna Kimberly ASSEMBLER [employer] Unavailable [phone] Que Madsen MD Unavailable [phone] Que Madsen MD Unavailable [phone] Rosaline Smith NP Primary Care Provider + [phone] Rosaline Smith NP Unavailable [phone] Reason for Visit * Reason Comments Medication Refill Omeprazole Encounter Details Date Type Department Care Team ([facility] st Contact Info) Description 12/21/2024 Refill [facility] 14 [facility] [address] [place] [address] Rosaline Smith NP 14 [facility] [address] [place] [address] [id number] [email or web address] Medication Refill (Omeprazole ) Social History Tobacco Use Types Packs/Day Years [...] as of this encounter Progress Notes * Brooklynn Neri CMA - 12/21/2024 7:45 AM EDT Rx Care Gap Status - Instructions for Clinical Staff (prescriber discretion applies): > Mismatch review guide > N/a - No action needed Visit Info Last visit: 11/23/2024 Rosaline Smith [facility] > Requested f/u: Return in about 12 days (around 12/05/2024) for Recheck. Upcoming visit: 01/09/2025 Rosaline Smith NP - [facility] ACTIONS TAKEN BY Brooklynn Neri CMA - Criteria met. Gastrointestinal Rx Protocol (H2 blockers, PPIs, stool softeners, laxatives) - omeprazole Criteria met; renew for up to 12 months. Visit in the past 24 months: Yes documented in this encounter Plan of Treatment Upcoming Encounters Date Type Department Care Team ([facility] st Contact Info) Description 07/17/2025 3:30 PM EDT Office Visit [facility] Internal Medicine 14 [facility] [address] [place] [address] oRsaline Smith NP [address] [place] [address] [email or web address] documented as of this encounter Visit Diagnoses Not on filedocumented in this encounter Additional Health Concerns Assessment Noted Time PHQ-2 Depression Total Score: 1 07/07/19 25 3:45 PM EDT documented as of this encounter Care Teams Pointer Machine Operator Relationship Specialty Start Date End Date Rosaline Smith NP [address] [place] [address] [place] [address] PCP - General Internal Medicine 11/07/21 Rosaline Smith NP [address] [place] [address] [place] [address] Historical LMR Provider 02/13/17 Neeru Vaughn CNP [address] [place] [address] [place] [address] [email or web address] Historical LMR Provider 02/13/17 Que Madsen MD [address] [place] [address] [email or web address] Historical LMR Provider 02/13/17 Que Madsen MD [address] [place] [address] [email or web address] Insurance Assigned Provider 08/27/18 Rosaline Smith NP [address] [place] [address] [email or web address] Insurance Assigned Provider 07/30/24 documented as of this encounter Additional Source Comments The information contained in this document represents components of the legal health record. It is not the complete legal health record.[facility]
--- OUTSIDE RECORDS SUMMARY | 2025-01-18 18:42 | XMS_ITS | Clinical Summary ---
Author Organization [facility] Address [facility] [employer] [facility] [address] [place] [address] Phone Care Team Providers Care Edge Stripper Name Role Phone Rosaline Smith NP Unavailable [phone] PheShannan pickardanna Kimberly ELECTRIC NEEDLE SPECIALIST Unavailable Que Madsen MD Unavailable [phone] Que Madsen MD Unavailable [phone] Rosaline Smith NP Primary Care Provider + [phone] Rosaline Smith NP Unavailable [phone] Allergies Active Allergy Reactions Criticality Noted Date [...] by mouth every morning. 09/28/19 25 Active melatonin 5 mg Tab Take [...] for anxiety. 15 tablet 11/24/19 25 Active omeprazole (PRILOSEC) 20 MG capsule TAKE 1 CAPSULE (20 MG TOTAL) BY MOUTH DAILY. TAKE ON AN EMPTY STOMACH AT BEDTIME 90 capsule 3 12/22/19 25 Active omeprazole (PRILOSEC) 20 MG capsule TAKE 1 CAPSULE (20 MG TOTAL) BY MOUTH DAILY. TAKE ON AN EMPTY STOMACH AT BEDTIME 09/24/19 25 025 Discontinued Active Problems Problem Noted Date Diagnosed Date [...] his environment following his divorce. Can use [id number] antihistamines as needed. Assessment & Plan (01/17/2019 3:06 PM EDT): Continue as needed fluticasone nasal spray and biks-tkb-palqewk antihistamines. If symptoms persist, and once current [...] Encounters Date Type Department Care Team Description 12/26/2024 Telephone [facility] Internal Medicine [address] [address] Rosaline Smith NP Follow-up 12/21/2024 Refill [facility] [address] [place] [address] Rosaline Smith NP Medication Refill (Omeprazole ) 12/15/2024 Telephone [facility] [address] [address] Iliana Jara MA Patient being d/c'd today 12/15/2024 Telephone [facility] [address] [address] Rosaline Smith NP TCM Visit (Unable to schedule) 12/11/2024 Telephone [facility] [address] [address] Rosaline Smith NP call 12/11/2024 Telephone [facility] [address] [place] [address] Rosaline Smith, GEORGE Requesting Call Back 12/09/2024 Telephone [facility] [address] [address] Carolyn Strauss, cross country truck driver Question (After Hours Call) 12/09/2024 Telephone [facility] [address] [address] Rachelle Finley, cross country truck driver Problem (After Hours Call ) 12/07/2024 Telephone [facility] [address] [address] Phyllis London, PA-C Medication Question (After hours call); requesting call back 12/07/2024 Telephone [facility] [address] [address] Phyllis London PA-C Advice Only (After hours call) 12/05/2024 Telephone [facility] [address] [place] [address] Iliana Jara MA not doing well 12/02/[address] [address] Wanda Gonzalez CNP Mental Health Problem (After hours call ) 11/29/2024 Telephone [facility] [address] [place] [address] Rosaline Smith NP Please call; REQUESTING CALL BACK 11/28/2024 Telephone [facility] [address] [place] [address] Rosaline Smith NP Therapy call 11/23/2024 11:10 AM EDT Office Visit [facility] [address] [place] [address] Rosaline Smith NP Benzodiazepine withdrawal with complication (Primary Dx); Generalized anxiety disorder 11/20/2024 Refill [facility] [address] [place] [address] Rosaline Smith, GEORGE Medication Refill 11/20/2024 Refill [facility] 14 [facility] [address] [place] [address] Rosaline Smith NP Medication Refill 11/15/2024 Nurse Triage [facility] [address] [facility] [address] [place] [address] Heavenly Cody RN Medication Refill (After hours call ) 11/14/2024 Telephone [facility] 14 [facility] [address] [place] [address] Prachi Mccormack, JUAN CARLOS Not doing well 11/10/2024 Telephone [facility] [address] [address] Rosaline Smith, GEORGE Call back requested 11/09/2024 12:50 PM EDT Office Visit [facility] [address] [address] Rosaline Smtih NP Generalized anxiety disorder (Primary Dx) 11/08/[address] [facility] [address] [place] [address] Rajani Lee PA-C Medication Question (After hours lead pony rider) 11/08/2024 Telephone [facility] [address] [address] Iliana Jara [place] extreme anxiety 11/07/2024 9:42 PM EDT - 11/08/2024 3:19 PM EDT Emergency [facility] [address] [place] [address] Chan Garcia MD Kanter, MD Alex Paige, MD Jie Perla, Silvio Del Toro MD Discharge Disposition: Home or Self Care 10/31/2024 Patient Outreach [facility] [address] [place] [address] Carolyn Dawn, JUAN CARLOS Administration (iCMP Discharge ) 10/31/2024 Social Work [facility] [address] [place] [address] [facility] ([facility] outreach) 10/26/2024 Telephone [facility] [facility] 14 [facility] [address] [place] [address] Rosaline Smith NP Patient information 10/23/2024 Social Work [facility] [address] [place] [address] [facility] ([facility] outreach) from Last 3 Months Immunizations Immunization Administration [...] Description 07/17/2025 3:30 PM EDT Office Visit [facility] [place] [facility] 14 [facility] [address] [place] [address] Rosaline Smith NP 14 [facility] [address] [place] [address] Health Maintenance Due Date Last Done Comments HEPATITIS A VACCINES (1 of 2 - Risk 2-dose series) 07/09[birth year]1971 COLOGUARD 1997 FIT TEST 1997 FOBT 1997 SIGMOIDOSCOPY 1997 VIRTUAL COLONOSCOPY 1997 INFLUENZA VACCINE (#1) 2024 , 12/31/2022, 12/31/2022, Additional history exists BLOOD PRESSURE 05/12/2025 11/09/2024 DEPRESSION SCREENING 07/06/2025 07/06/2024 CREATININE LEVEL 11/07/2025 11/07/2024, 02/2025, 08/03/2024, Additional history exists POTASSIUM LEVEL 11/07/2025 11/07/2024, 0604/2024, 08/03/2024, Additional history exists LIPID PANEL 01/24/2029 [...] AND DIFFERENTIAL STAT 11/07/2024 11:37 PM EDT LIPID PANEL Routine 01/25/2024 10:49 AM EDT Screening for hyperlipidemia HM COLONOSCOPY FOR RESULT ENTRY ONLY Routine 06/02/2023 2:27 PM EST HEPATITIS C ANTIBODY, QUALITATIVE Routine 06/12/2021 11:59 AM EST Elevated liver function tests from Last 3 Months or Most Recently Relevant to Health Maintenance Results * (ABNORMAL) Toxicology screen, urine (11/08/2024 1:18 AM EDT) URINE CANNABINOIDS Positive(A) NONE DETECTED [facility] Comment:Cutoff: 50 ng/mL URINE COCAINE METAB NONE DETECTED NONE DETECTED [facility] Comment:Cutoff: 300 ng/mL URINE AMPHETAMINES NONE DETECTED NONE DETECTED [facility] Comment:Cutoff: 1000 ng/mL URINE METHADONE NONE DETECTED NONE DETECTED [facility] Comment:Cutoff: 300 ng/mL URINE OPIATES NONE DETECTED NONE DETECTED [facility] Comment:Cutoff: 300 ng/mL URINE PHENCYCLIDINE NONE DETECTED NONE DETECTED [facility] Comment:Cutoff: 25 ng/mL URINE OXYCODONE NONE DETECTED NONE DETECTED [facility] Comment:Cutoff: 300 ng/mL URINE BARBITURATES NONE DETECTED NONE DETECTED [facility] Comment:Cutoff: 200 ng/mL URINE BENZODIAZEPINE NONE DETECTED NONE DETECTED [facility] Comment:Cutoff: 200 ng/mL URINE BUPRENORPHINE NONE DETECTED NONE DETECTED [facility] Comment:Cutoff: 5 ng/mL Fentanyl, urine NONE DETECTED NONE DETECTED [facility] Comment: Cutoff: 5 ng/mL INTERPRETATION FOR TOXICOLOGY PANEL: These results are unconfirmed and should be used for Medical Treatment purposes only. Urine (Urine) 11/08/2024 1:1 8 AM EDT 11/08/2024 1:29 AM EDT Chan Garcia MD URINE ORDERABLES Final Result Performing Organization Address City/[facility] Co de Phone Number [address] [address] * Ethanol, blood (11/07/2024 11:37 PM EDT) ETHANOL <10 <10 mg/dL [facility] Blood 11/07/2024 11:3 7 PM EDT 11/07/2024 11:54 PM EDT Chan Garcia MD LAB BLOOD ORDERABLES Final Resul t Performing Organization Address [facility] Co de Phone Number [address] [address] * LFTs (hepatic panel) (11/07/2024 11:37 PM EDT) ALKALINE PHOSPHATASE 59 39 - 117 U/L [facility] TOTAL BILIRUBIN 0.7 0.0 - 1.2 mg/dL [facility] DIRECT BILIRUBIN 0.2 0.0 - 0.2 mg/dL [facility] Bilirubin (Indirect) 0.5 0 - 1.5 mg/dL [facility] AST 15 0 - 37 U/L [facility] ALT 13 0 - 40 U/L [facility] TOTAL PROTEIN 6.7 6.5 - 8.0 g/dL [facility] ALBUMIN 4.0 3.9 - 4.8 g/dL [facility] GLOBULIN 2.7 1 - 4.8 g/dL [facility] A/G Ratio 1.48 1.00 - 4.80 RATIO [facility] Blood 11/07/2024 11:3 7 PM EDT 11/07/2024 11:54 PM EDT us Chan Garcia MD LAB BLOOD ORDERABLES Final Resul t [address] [address] * (ABNORMAL) CBC and differential (11/07/2024 11:37 PM EDT) Pathologist [facility] WBC 6.71 4.00 - 11.00 K/uL [facility] RBC 3.91(L) 4.50 - 5.90 M/uL [facility] HGB 13.6 13.5 - 17.5 g/dL [facility] HCT 39.5(L) 41.0 - 53.0 % [facility] PLT 180 150 - 450 K/uL [facility] MCV 101.0(H) 80.0 - 100.0 fL [facility] MCH 34.8(H) 27.0 - 31.0 pg [facility] MCHC 34.4 32.0 - 36.0 g/dL [facility] RDW 12.1 11.5 - 14.5 % [facility] MPV 11.0 8.4 - 12.0 fL [facility] NRBC 0.00 0.00 /100 WBCs [facility] ABSOLUTE NRBC 0.00 0.00 K/uL [facility] DIFF METHOD Auto [facility] NEUTS 61.7 48.0 - 76.0 % [facility] LYMPHS 26.8 18.0 - 41.0 % [facility] MONOS 9.2 4.0 - 11.0 % [facility] EOS 1.3 0.0 - 5.0 % [facility] BASOS 0.6 0.0 - 1.5 % [facility] Granulocytes, immature (%) 0.4 0.0 - 0.9 % [facility] ABSOLUTE NEUTS 4.13 1.92 - 7.60 K/uL [facility] ABSOLUTE LYMPHS 1.80 0.72 - 4.10 K/uL [facility] ABSOLUTE MONOS 0.62 0.16 - 1.10 K/uL [facility] ABSOLUTE EOS 0.09 0.00 - 0.50 K/uL [facility] ABSOLUTE BASOS 0.04 0.00 - 0.15 K/uL [facility] Granulocytes, immature 0.03 0.00 - 0.09 K/uL [facility] Blood 11/07/2024 11:3 7 PM EDT 11/07/2024 11:54 PM EDT us Chan Garcia MD LAB BLOOD ORDERABLES Final Resul t [facility] [address] [place] [address] * (ABNORMAL) Basic metabolic panel (11/07/2024 11:37 PM EDT) SODIUM 140 133 - 146 mmol/L [facility] CHLORIDE 104 96 - 108 mmol/L [facility] POTASSIUM 3.7 3.3 - 5.1 mmol/L [facility] CO2 27 21 - 35 mmol/L [facility] BUN 18 6 - 19 mg/dL [facility] CREATININE 1.10 0.5 - 1.5 mg/dL [facility] GLUCOSE 109(H) 70 - 99 mg/dL [facility] CALCIUM 9.6 8.4 - 10.3 mg/dL [facility] EGFR 71 >59 mL/min/1.7 3m2 [facility] Comment:Estimated glomerular filtration rate calculated using the CKD-EPI refit equation. ANION GAP 13 10 - 20 mmol/L [facility] Blood 11/07/2024 11:3 7 PM EDT 11/07/2024 11:54 PM EDT us Chan Garcia MD LAB BLOOD ORDERABLES Final Resul t [address] [address] * (ABNORMAL) Lipid panel (01/25/2024 10:49 AM EDT) HDL 57 mg/dL [facility] Comment: Interpretation <40 mg/dL: Low HDL cholesterol (major risk factor for CHD) Greater than or equal to 60 mg/dL: High HDL cholesterol ( negative risk factor for CHD) HDL - cholesterol is affected by a number of factors, e.g. smoking, excerise, hormones, sex and age. CHOLESTEROL 187 0 - 240 mg/dL [facility] TRIGLYCERIDES 71 30 - 160 mg/dL [facility] LDL 116 50 - 129 mg/dL [facility] Comment: LDL levels in terms of risk for coronary heart disease: <100 mg/dL: Optimal 100-129 mg/dL: Near or above optimal 130-159 mg/dL: Borderline high 160-189 mg/dL: High >190 mg/dL: Very High CARDIAC RISK RATIO 3.3(L) 3.4 - 5.0 C [facility] Blood 01/25/2024 10:4 9 AM EDT 01/25/2024 10:52 AM EDT us Rosaline Smith NP LAB BLOOD ORDERABLES Final Result [address] [address] * HM COLONOSCOPY FOR RESULT ENTRY ONLY (06/02/2023 2:27 PM EST) us Unknown Unknown MD HEALTH MAINTENANCE Final Resu lt * Hepatitis C antibody, qualitative (06/12/2021 11:59 AM EST) HCV NON-REACTIV E NON-REACTI VE [facility] Blood 06/12/2021 11:5 9 AM EST 06/12/2021 12:06 PM EST us Rosaline Smith NP LAB BLOOD ORDERABLES Final Result [facility] [address] [place] [address] from Last 3 Months or Most Recently Relevant to Health Maintenance Insurance MEDICARE PART A & B [facility] ENHANCE SUPPLEMENT MEDICARE PART A & B [facility] MEDICARE ENHANCE SUPPLEMENT MEDICARE PART A & B [facility] MEDICARE ENHANCE SUPPLEMENT MEDICARE PART A & B [facility] MEDICARE ENHANCE SUPPLEMENT MEDICARE PART A & B [facility] MEDICARE ENHANCE SUPPLEMENT MEDICARE PART A & B [facility] MEDICARE ENHANCE SUPPLEMENT MEDICARE PART A & [place] [address] [place] [address] MEDICARE ENHANCE SUPPLEMENT MEDICARE PART A & B [facility] MEDICARE ENHANCE SUPPLEMENT MEDICARE PART A & B [facility] MEDIC[facility] ENHANCE SUPPLEMENT Advance Directives For more information, please contact: [phone] (9AM - 5PM [facility], Wednesday-Wednesday) Documents on File Type Date Recorded Patient Valve Repairer Expl anation Healthcare Proxy 12/22/2024 4:21 PM HCP Healthcare Proxy 11/29/2024 Signed HCP Care Teams Edge Stripper Relationship Specialty Start Date End Date Rosaline Smith NP [address] [place] [address] [address] [place] [address] PCP - General Internal Medicine 11/07/21 Rosaline Smith NP [address] [place] [address] [address] [place] [address] Historical LMR Provider 02/13/17 Neeru Vaughn CNP [address] [place] [address] [place] [address] Historical LMR Provider 02/13/17 Que Madsen MD [address] [place] [address] Historical LMR Provider 02/13/17 Que Madsen MD [address] [place] [address] Insurance Assigned Provider 08/27/18 Rosaline Smith NP [address] [place] [address] Insurance Assigned Provider 07/30/24 Additional Source Comments The information contained in this document represents components of the legal health record. It is not the complete legal health record.[facility]
--- OUTSIDE RECORDS SUMMARY | 2025-01-18 18:42 | XMS_ITS | Patient Health Record ---
Author Organization [facility] ociates Address [address] [facility] [address] [place] [address] Reason For Referral No Information Medications Medication SIG (Take, Route, Frequency, Duration) Notes Start Date End Date Status Ambien 10 MG Tablet 1 tablet at bedtime as needed Orally Once a day Active Tamsulosin HCl 0.4 MG Capsule 1 capsule 30 minutes after the same meal each day Orally Once a day Active Problems Problem Type SNOMED Code ICD Code Onset Dates Problem Status W/U Status Risk Notes Problem Digestive system symptom (854458240) Other symptoms involving digestive system (787.99) Active confirmed Plan Of Treatment No Information Insurance Providers Payer Name Payer Address Payer Phone Subscriber Number Group Number Insured Name Patient Relationship to Insured Coverage Start Date Coverage End Date MEDICARE [employer] [address] [address] [place] [address] [id number] Ulisses Kitchen Self - patient is the insured [facility] [address] [address] [place] [address] [id number] Ulisses Kitchen Self - patient is the insured Medical (General) History Medical History History ICD Code 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
--- OUTSIDE RECORDS SUMMARY | 2025-01-18 18:42 | XMS_ITS | Encounter Summary ---
Author Organization [facility] Address [facility] [address] [place] [address] Phone Care Team Providers Care Mergers And Acquisitions Attorney Name Role Phone Rosaline Smith NP Unavailable [phone] Johana Neeru Harris APARTMENT MANAGER Unavailable [phone] Que Madsen MD Unavailable [phone] Que Madsen MD Unavailable [phone] Rosaline Smith NP Primary Care Provider [phone] Que Madsen MD Unavailable [phone] Rosaline Smith NP Unavailable + [phone] Pretty Merrill [facility] Unavailable Chanel Tripp Unavailable [email or web address] Encounter Details Date Type Department Care Team (Latest Contact Info) Description 04/13/2023 Ancillary Orders [facility] [place] Internal [facility] 14 [facility] [address] [place], [place] [phone] Rosaline Smith NP [address] [facility] [address] [facility] [address] [place], [place] [phone] [email or web address] Postural kyphosis of cervicothoracic region (Primary Dx); Other idiopathic scoliosis, thoracolumbar region Social History Tobacco Use Types Packs/Day Years Used Date Smoking Tobacco: Never Smokeless Tobacco: Never Alcohol Use Standard Drinks/Week Comments Yes 7 (1 standard drink = 0.6 oz pur e alcohol) Education Answer Date Recorded Are you interested in more education? Not on linda e 08/26/2022 Are you concerned about learning? Not on file 08/26/2022 No 08/26/2022 No 08/26/2022 Digital Access Answer Date Recorded No 09/17/2022 No 09/17/2022 Reliable internet access at home? Not on file 09/17/2022 Device with a working camera? Not on file Sex and Gender Information Value Date Recorded Sex Assigned at Male 04/08/2021 9:39 AM EST Legal Sex Male 6:20 PM EST Gender Identity Male 04/08/2021 9:39 AM EST Sexual Orientation Bisexual 10/29/2022 11 :58 AM EDT documented as of this encounter Plan of Treatment Upcoming Encounters Date Type Department Care Team (Late st Contact Info) Description 07/17/2025 3:30 PM EDT Office Visit [facility] Internal Medicine 14 [facility] [address] [place] [address] Rosaline Smith NP [address] [facility] [address] [facility] [address] [place] [address] [email or web address] documented as of this encounter Results * XR SCOLIOSIS STUDY SUPINE AND ERECT 2 - 3 VIEWS (04/13/2023 1:26 PM EST) Anatomical Region Laterality Modality C-spine, T-spine, L-spine Comput ed Radiography 04/15/2023 11:0 1 AM EST Impressions 04/15/2023 11:05 AM EST Kyphoscoliosis. Narrative 04/15/2023 11:05 AM EST XR SCOLIOSIS STUDY 2 - 3 VIEWS Referring clinician's provided indication for this examination in Epic: Abnormal posture; Scoliosis COMPARISON: None FINDINGS: Study is limited due to patient body habitus. There is a left convex T7-11 curvature measured at approximately 27.4 degrees and a right convex T11-L4 curvature measured at approximately 28 degrees. Thoracic kyphosis estimated at 57 degrees. No gross morphologic abnormality apparent. Procedure Note Judd Caal MD - 04/15/2023 XR SCOLIOSIS STUDY 2 - 3 VIEWS Referring clinician's provided indication for this examination in Epic:Abnormal posture; Scoliosis COMPARISON: None FINDINGS: Study is limited due to patient body habitus. There is a left convex T7- 11curvature measured at approximately 27.4 degrees and a right convex [id number] measured at approximately 28 degrees. Thoracic kyphosisestimated at 57 degrees. No gross morphologic abnormality apparent. IMPRESSION: Kyphoscoliosis. Rosaline Smith DELIVERY DRIVER/SUPERVISOR IMG XR SPINE Final Resu lt documented in this encounter Visit Diagnoses Diagnosis Postural kyphosis of cervicothoracic region Other idiopathic scoliosis, thoracolumbar region Postural kyphosis of cervicothoracic region- Primary Other idiopathic scoliosis, thoracolumbar region documented in this encounter Additional Health Concerns Infection Onset Date Last Indicated Resolved Time CoV-Risk 07/30/2023 07/30/2023 08/10/2023 1:22 AM EDT CoV-Risk 09/21/2023 09/21/2023 10/02/2023 1:22 AM EDT COVID-19 12/25/2023 12/25/2023 01/15/2024 1:22 AM EDT CoV-Risk 01/31/2024 01/31/2024 02/11/2024 1:24 AM EDT Assessment Noted Time PHQ-2 Depression Total Score: 0 09/01/19 1:08 PM EDT documented as of this encounter Care Teams Mergers And Acquisitions Attorney Relationship Specialty Start Date End Date Rosaline Smith NP [address] [place] [address] [address] [place] [address] [email or web address] PCP - General Internal Medicine 11/07/21 Rosaline Smith NP [address] [place] [address] [address] [place] [address] Historical LMR Provider 02/13/17 Neeru Vaughn, APARTMENT MANAGER [address] [place] [address] [place] [address] Historical LMR Provider 02/13/17 Que Madsen MD [address] [place] [address] Historical LMR Provider 02/13/17 Que Madsen MD [address] [place] [address] Insurance Assigned Provider 08/27/18 Que Madsen MD [address] [place] [address] Insurance Assigned Provider 07/31/23 07/30/24 Rosaline Smith NP [address] [place] [address] Insurance Assigned Provider 07/30/24 Pretty Merrill LICSW [address] [place] [address] [facility] 10/02/24 10/30/24 Chanel Tripp [address] [place] [address] [email or web address] [facility] Community Drapery Sewer Hand 10/03/24 10/03/24 documented as of this encounter Additional Source Comments The information contained in this document represents components of the legal health record. It is not the complete legal health record.[facility]
--- OUTSIDE RECORDS SUMMARY | 2025-01-18 18:42 | XMS_ITS | Encounter Summary ---
Author Organization [facility] Address [facility] [employer] [facility] [address] [place] [address] Phone Care Team Providers Care General Store Manager Name Role Phone Rosaline Smith NP Unavailable [phone] Shannan Vaughnanna Kimberly PURCHASING MANAGER/SALES Unavailable [phone] Que Madsen MD Unavailable [phone] Que Madsen MD Unavailable [phone] Rosaline Smith NP Primary Care Provider + [phone] Rosaline Smith NP Unavailable [phone] [place] Pretty Mary [facility] Unavailable [phone] Reason for Visit * Reason Onset Date Comments Patient information 10/26/2024 Encounter Details Date Type Department Care Team ([facility] st Contact Info) Description 10/26/2024 Telephone [facility] [place] Internal Medicine 14 [facility] [address] [place] [address] Rosaline Smith NP 14 [facility] [address] [place] [address] [email or web address] Patient information Social History Tobacco Use Types Packs/Day Years [...] as food, clothing, or medical care? No 10/06/2024 In the past 12 months have y ou been in a relationship with a person who hurts, threatens, or tries to control you? No 10/06/2024 Are you denied basic needs s uch as food, clothing, or medical care? No 10/06/2024 In the past 12 months have y ou been in a relationship with a person who hurts, threatens, or tries to control you? No 10/06/2024 Sex and Gender Information Value Date Recorded Sex Assigned at Male 04/08/2021 9:39 AM EST Legal Sex Male 6:20 PM EST Gender Identity Male 04/08/2021 9:39 AM EST Sexual Orientation Bisexual 10/29/2022 11 :58 AM EDT documented as of this encounter Progress Notes * SmithRosaline obrien NP - 11/01/2024 1:54 PM EDT Returned call to Dr. Mosher and left message for him to call back * Dior Groves - 10/26/2024 3:[address] Mosher called to speak about Ulisses. Please call [phone] when you have a chance. documented in this encounter Plan of Treatment Upcoming Encounters Date Type Department Care Team (Late st Contact Info) Description 07/17/2025 3:30 PM EDT Office Visit [facility] Internal Medicine [address] [address] Rosaline Smith NP [address] [place] [address] [email or web address] documented as of this encounter Visit Diagnoses Not on filedocumented in this encounter Additional Health Concerns Assessment Noted Time PHQ-2 Depression Total Score: 1 07/07/19 25 3:45 PM EDT documented as of this encounter Care Teams General Store Manager Relationship Specialty Start Date End Date Rosaline Smith NP [address] [place] [address] PCP - General Internal Medicine 11/07/21 Rosaline Smith NP [address] [place] [address] Historical LMR Provider 02/13/17 Neeru Vaughn, PURCHASING MANAGER/SALES [address] [place] [address] [email or web address] Historical LMR Provider 02/13/17 Que Madsen MD [address] [place] [address] Historical LMR Provider 02/13/17 Que Madsen MD [address] [place] [address] Insurance Assigned Provider 08/27/18 Rosaline Smith NP [address] [place] [address] Insurance Assigned Provider 07/30/24 Pretty Merrill, [address] [address] [email or web address] Social Work 10/02/24 10/30/24 documented as of this encounter Additional Source Comments The information contained in this document represents components of the legal health record. It is not the complete legal health record.[facility]
--- OUTSIDE RECORDS SUMMARY | 2025-01-18 18:42 | XMS_ITS | Encounter Summary ---
Author Organization [facility] Address [facility] [employer] [facility] [address] [place] [address] Phone Care Team Providers Care Pet Supplies Salesperson Name Role Phone Rosaline Smith NP Unavailable [phone] Neeru Vaughn CLOTHES MODEL Unavailable [phone] Que Madsen MD Unavailable [phone] Que Madsen MD Unavailable [phone] Rosaline Smith NP Primary Care Provider + [phone] Rosaline Smith NP Unavailable [phone] Reason for Visit * Reason Onset Date Comments Follow-up 12/26/2024 Encounter Details Date Type Department Care Team (Late st Contact Info) Description 12/26/2024 [facility]phone [facility] [place] Internal [facility] [address] [address] Rosaline Smith NP 14 [facility] [address] [place] [phone] [email or web address] Follow-up Social History Tobacco Use Types Packs/Day Years [...] as of this encounter Progress Notes * Rosaline Smith NP - 12/28/2024 10:58 AM EDT Patient is still inpatient. I am awaiting updates from [facility] on patient's diagnosis/plan. Everything that I have received thus far does not have definitive diagnosis yet. Needs to speak with treating inpatient providers regarding patient at this time. * Durga Mark - 12/26/2024 10:59 AM EDT Pt brother called in, he would like a call back from Rosaline Smith about his brother's health, please contact and advise. Central Support Fuse Spooler (Please do not reply to this user; this inbox is not monitored.) Thank you. documented in this encounter Plan of Treatment Upcoming Encounters Date Type Department Care Team (Late st Contact Info) Description 07/17/2025 3:30 PM EDT Office Visit [facility] Internal Medicine 14 [facility] [address] [place] [address] Rosaline Smith NP [address] [place] [address] documented as of this encounter Visit Diagnoses Not on filedocumented in this encounter Additional Health Concerns Assessment Noted Time PHQ-2 Depression Total Score: 1 07/07/19 25 3:45 PM EDT documented as of this encounter Care Teams Pet Supplies Salesperson Relationship Specialty Start Date End Date Rosaline Smith NP [address] [place] [address] [place] [address] PCP - General Internal Medicine 11/07/21 Rosaline Smith NP [address] [place] [address] [place] [address] Historical LMR Provider 02/13/17 Neeru Vaughn CNP [address] [place] [address] [place] [address] [email or web address] Historical LMR Provider 02/13/17 Que Madsen MD [address] [place] [address] [email or web address] Historical LMR Provider 02/13/17 Que Madsen MD [address] [place] [address] [email or web address] Insurance Assigned Provider 08/27/18 Rosaline Smith NP [address] [place] [address] [email or web address] Insurance Assigned Provider 07/30/24 documented as of this encounter Additional Source Comments The information contained in this document represents components of the legal health record. It is not the complete legal health record.[facility]
--- OUTSIDE RECORDS SUMMARY | 2025-01-18 18:42 | XMS_ITS | Encounter Summary ---
Author Organization [facility] Address [address] [place] [address] Care Team Providers Care On Site Services Specialist Name Role Phone Pcp, No Primary Care Provider Unavailabl e Encounter Details Date Type Department Care Team ([facility] st Contact Info) Description 02/05/2021 Scanned Document [facility] Pulmonary [place] [address] [facility] [address] [place] [address] Pulmonary, Scan Social History Tobacco Use Types Packs/Day Years Used Date Smoking Tobacco: Never Assessed Sex and Gender Information Value Date Recorded Sex Assigned at Not on file Legal Sex Male 12:07 PM EDT Gender Identity Not on file Sexual Orientation Not on file COVID-19 Exposure Response Date Recorded In the last month, have you been in contact with someone who was confirmed or suspected to have Coronavirus / COVID-19? No / Unsure 02/06/2021 10:50 AM EDT documented as of this encounter Plan of Treatment Not on file documented as of this encounter Visit Diagnoses Not on filedocumented in this encounter Care Teams On Site Services Specialist Relationship Specialty Start Date End Date Pcp, No PCP - General General Medicine 02/04/21 documented as of this encounter
--- OUTSIDE RECORDS SUMMARY | 2025-01-18 18:42 | XMS_ITS | Encounter Summary ---
Author Organization [facility] Address [address] [place] [address] Care Team Providers Care Animal Groomer Name Role Phone Pcp, No Primary Care Provider Unavailabl e Encounter Details Date Type Department Care Team ([facility] st Contact Info) Description 02/05/2021 Scanned Document [facility] Pulmonary [place] 85 [facility] [address] [place] [address] Pulmonary, Scan Social History Tobacco Use Types [...] on filedocumented in this encounter Care Teams Animal Groomer Relationship Specialty Start Date End Date Pcp, No PCP - General General Medicine 02/04/21 documented as of this encounter
--- OUTSIDE RECORDS SUMMARY | 2025-01-18 18:42 | XMS_ITS | Encounter Summary ---
Author Organization [facility] Address [address] [place] [address] [place] [address] Phone Care Team Providers Care Coding Spec Name Role Phone Rosaline Smith NP Unavailable [phone] Neeru Vaughn OYSTER FARMER Unavailable [phone] Que Madsen MD Unavailable [phone] Que Madsen MD Unavailable [phone] Rosaline Smith NP Primary Care Provider + [phone] Rosaline Smith NP Unavailable [phone] Reason for Visit * Reason Onset Date Comments TCM Visit 12/15/2024 Unable to schedu bernardo Encounter Details Date Type Department Care Team (Late st Contact Info) Description 12/15/2024 Telephone [facility] [place] Internal Medicine 14 [facility] [address] [place] [address] Rosaline Smith NP 14 [facility] [address] [place] [address] [email or web address] TCM Visit (Unable to schedule) Social History Tobacco Use Types Packs/Day Years [...] Progress Notes * Rosaline Smith NP - 12/21/2024 5:[address] Verdin back and he updated me on patient's status. He has cerebrovascular small vesseldisease and some white matter changes suggestive of dementia, which they believe is cause for symptoms though they did a LP and are awaiting results of this. He notes that this is a very odd presentation for dementia, but they have not been able to find any other causes. He noted that he does have labile hypertension and has required hydralazine around the clock in addition to amlodipine for BP control. They do not feel he has brain tumor and his carotid arteries are normal. No d/c plans at this time, but his brother, Dean, has taken over as HCP and Dr. Verdin felt that Ulisses had capacity tomake that decision, but he is not his DPOA. * Mindy Hilliard, JUAN CARLOS - 12/21/2024 3:36 PM EDT Call received from Radha She states that a lot has been going on with Ulisses, had a repeat MRI, LP His BP has been a big issue Having trouble getting it down Dr. Verdin would like a call from Rosaline Smith They want to make sure when he is discharged (possible 1-2 weeks) that he will be able to get vna orders from our office to ensure that he will have continued care * Mindy Hilliard, JUAN CARLOS - 12/21/2024 2:51 PM EDT Call made to Radha to review No answer Left detailed message that we did call back and he was not discharged so we did not set up an appointment for follow up * Mary Carrillo - 12/21/2024 2:46 PM EDT Received call from Radha with [facility]. She states she called to schedule a follow upvisit last week/ She is requesting to speak directly with a nurse regarding the pt's attendance to appts and treatment of high BP. He is in the hospital now and they are trying to gain more collateral. Central Support Firearms Inspector (Please do not reply to this user; this inbox is not monitored.) Thank you. * Mindy Hilliard, JUAN CARLOS - 12/15/2024 9:25 AM EDT [place] [facility] [place] [facility] He is potentially being discharged today States family has been heavily involved They are unsure who called but they are worried it is family Reviewed that he cannot see another provider If he wants to change providers then he will need to re-establish care with a new PCP They are understanding * Yolie Chavez - 12/15/2024 8:48 AM EDT [facility] PEN Top Smart Phrases: Transitional Care Management New Patient: YES/NO: no [place] [facility] Discharge Date: 12/15 Reason for Visit+ Diagnosis: Altered mental status, hypoxia Is the discharge summary in patient chart:YES/NO: no If not did you inform the patient/patient advocate to fax it to the office: YES/NO: yes Please inform the patient/patient advocate to fax and bring a copy to the appt. Appointment Date: Is the appt: Awareness: Appt need to be schedule with in 2 to 14 calendar days from discharge date Additional Note (if applicable): Pt would like to see a provider that is not his PCP. Caller stated pt will need a dementia workup, exhibiting signs of dementia. Please contact pt to schedule. [facility] Call Center CSS Agent (Please do not reply to this user, as this inbox is not monitored. Thank you.) Thank you. documented in this encounter Plan of Treatment Upcoming Encounters Date Type Department Care Team (Late st Contact Info) Description 07/17/2025 3:30 PM EDT Office Visit [facility] [place] Internal Medicine [address] [address] Rosaline Smith NP [address] [place] [address] [email or web address] documented as of this encounter Visit Diagnoses Not on filedocumented in this encounter Additional Health Concerns Assessment Noted Time PHQ-2 Depression Total Score: 1 07/07/19 25 3:45 PM EDT documented as of this encounter Care Teams Coding Spec Relationship Specialty Start Date End Date Rosaline Smith NP [address] [place] [address] [email or web address] PCP - General Internal Medicine 11/07/21 Rosaline Smith NP [address] [place] [address] [email or web address] Historical LMR Provider 02/13/17 Neeru Vaughn OYSTER FARMER [address] [place] [address] [email or web address] Historical LMR Provider 02/13/17 Que Madsen MD [address] [place] [address] Historical LMR Provider 02/13/17 Que Madsen MD [address] [place] [address] [email or web address] Insurance Assigned Provider 08/27/18 Rosaline Smith NP [address] [place] [address] [address] [place] [address] [email or web address] Insurance Assigned Provider 07/30/24 documented as of this encounter Additional Source Comments The information contained in this document represents components of the legal health record. It is not the complete legal health record.[facility]
--- OUTSIDE RECORDS SUMMARY | 2025-01-18 18:42 | XMS_ITS | Encounter Summary ---
Author Organization [facility] Address [address] [place] [address] [place] [address] Phone Care Team Providers Care Transition Assistant Name Role Phone Brad Valerio MD Unavailable [phone] Rosaline Smith NP Unavailable +[phone] Neeru Vaughn AUTOMATIC BUFFING WHEEL FORMER Unavailable [phone] Mariaa Velasquez MD Unavailable [phone] Que Madsen MD Unavailable +[phone] Manav Berger MD Unavailable [phone] Kemal Gracia MD Unavailable Chan Sutton MD Unavailable Unavailable En Foster MD Unavailable Jerry You MD Unavailable [phone] Que Madsen MD Unavailable +[phone] Rosaline Smith NP Primary Care Provider +[phone] Que Madsen MD Primary Care Provider +[phone] Rosaline Smith NP Primary Care Provider + Que Madsen MD Unavailable +[phone] Rosaline Smith NP Unavailable + [phone] Pretty Merrill [facility] Unavailable Wills KarenChanel whittington [email or web address] Encounter Details Date Type Department Care Team (Late st Contact Info) Description 03/18/2020 Procedure Pass [facility] [address] [place] [address] Social History Tobacco Use Types Packs/Day Years [...] Encounters Date Type Department Care Team (Late Contact Info) Description 07/17/2025 3:30 PM EDT Office Visit [facility] Internal Medicine 14 [facility] [address] [place] [address] Rosaline Smith NP 14 [facility] [address] [place] [address] [email or web address] documented as of this encounter Visit Diagnoses Not on filedocumented in this encounter Additional Health Concerns Infection Onset Date Last Indicated Resolved Time CoV-Exposed Comment:Recent close contact documented in the COVID-19 PCR/PRO order 03/29/2021 04/03/2021 04/13/2021 1:[address] CoV-Presumed 03/21/2022 03/21/2022 04/11/2022 1:24 AM EST COVID-19 10/12/2022 10/12/2022 11/02/2022 1:21 AM EDT CoV-Risk 07/30/2023 07/30/2023 08/10/2023 1:22 AM EDT CoV-Risk 09/21/2023 09/21/2023 10/02/2023 1:22 AM EDT COVID-19 12/25/2023 12/25/2023 01/15/2024 1:22 AM EDT CoV-Risk 01/31/2024 01/31/2024 02/11/2024 1:24 AM EDT Assessment Noted Time PHQ-2 Depression Total Score: 0 09/01/19 18 1:08 PM EDT documented as of this encounter Care Teams Transition Assistant Relationship Specialty Start Date End Date Rosaline Smith NP [address] [place] [address] PCP - General Internal Medicine 03/16/20 02/09/21 Que Madsen MD [address] [place] [address] [email or web address] PCP - General Internal Medicine 02/10/21 11/06/21 Rosaline Smith NP [address] [place] [address] [email or web address] PCP - General Internal Medicine 11/07/21 Brad Valerio MD 22 [facility] [address] [place] [address] Historical LMR Provider 02/13/17 2 Rosaline Smith NP [address] [place] [address] [email or web address] Historical LMR Provider 02/13/17 Neeru Vaughn CNP [address] [place] [address] [email or web address] Historical LMR Provider 02/13/17 Mariaa Velasquez MD 15 [facility], 2nd [place] [address] Historical LMR Provider 02/13/17 Que Madsen MD 14 [facility] [address] [place] [address] Historical LMR Provider 02/13/17 Manav Berger MD [address] [place] [address] [address] [place] [address] Historical LMR Provider 02/13/17 05/03/21 Kemal Gracia MD [address] [address] Historical LMR Provider 02/13/17 2 Cahn Sutton MD Historical LMR Provider 02/13/17 05/03/21 En Foster MD [address] [place] [phone] Historical LMR Provider 02/13/17 2 Jerry You MD [address] [place] [address] Historical LMR Provider 02/13/17 Que Madsen MD 14 [facility] [address] [place] [address] [email or web address] Insurance Assigned Provider 08/27/18 Que Madsen MD 14 [facility] [address] [place] [address] Insurance Assigned Provider 07/31/23 07/30/24 Rosaline Smith NP [address] [place] [address] [address] [place] [address] [email or web address] Insurance Assigned Provider 07/30/24 Pretty Merrill LICSW [address] [place] [address] [email or web address] [facility] Social Work 10/02/24 10/30/24 Chanel Tripp [address] [place] [address] [email or web address] [facility] Community Unix Systems Administrator 10/03/24 10/03/24 documented as of this encounter Additional Source Comments The information contained in this document represents components of the legal health record. It is not the complete legal health record.[facility]
--- OUTSIDE RECORDS SUMMARY | 2025-01-18 18:42 | XMS_ITS | Encounter Summary ---
Author Organization [facility] Address [facility] [employer] [facility] [address] [place] [address] Phone Care Team Providers Care Software Release Manager Name Role Phone Rosaline Smith NP Unavailable [phone] Neeru Vaughn DRILLING MANAGER Unavailable [phone] Que Madsen MD Unavailable [phone] Que Madsen MD Unavailable [phone] Rosaline Smith NP Primary Care Provider + [phone] Rosaline Smith NP Unavailable [phone] Reason for Visit * Reason Onset Date Comments Therapy call 11/28/2024 Encounter Details Date Type Department Care Team (Late st Contact Info) Description 11/28/2024 Telephone [facility] [place] Internal Medicine 14 [facility] [address] [place] [address] Rosaline Smith NP 14 [facility] [address] [place], [place] [phone] [email or web address] Therapy call Social History Tobacco Use Types Packs/Day Years [...] as of this encounter Progress Notes * Mindy Hilliard RN - 11/29/2024 8:53 AM EDT Call made to Krysten to review She has been working with Ulisses for a very long time as his therapist She is calling to tell us that he is really not ok She saw him yesterday for a scheduled visit and he was horribly rude to her which he typically isnt He was not thinking clearly, saying things that did not make sense Repeatedly sending her messages that make no sense He has a nena named Brad that works for him that has been helping him a lot with things outside of work Brad said that Ulisses is not ok and its getting worse He is really wigging out Brad is scheduled to take a vacation at the end of November and Ulisses is threatening to take away his bonus if he goes because he needs his help Krysten called UTILITIES OPERATOR crisis last night for him and he did not meet criteria because he is not suicidal Reviewed that we have seen him weekly and are trying to get him off lorazepam because it is a very bad medication for him Took us 2 years to get him off of it a couple of years ago It completely changes him and he becomes very dependent on it Will review with Rosaline Smith * Keila Ashley - 11/28/2024 4:53 PM EDT Krysten Stanford therapist lvm on the triage line to f/u as she has been receiving texts from pt thathe is in the worse crisis of his life, and that he should speak with Rosaline. PT would not provide any other information to her and Krysten is concerned and is requesting a call back to f/u with the clinical team. Central Support Service Inspector (Please do not reply to this user; this inbox is not monitored.) Thank you. documented in this encounter Plan of Treatment Upcoming Encounters Date Type Department Care Team (Late st Contact Info) Description 07/17/2025 3:30 PM EDT Office Visit [facility] Internal Medicine [phone] [place] [address] Rosaline Smith NP [address] [place] [address] [email or web address] documented as of this encounter Visit Diagnoses Not on filedocumented in this encounter Additional Health Concerns Assessment Noted Time PHQ-2 Depression Total Score: 1 07/07/19 25 3:45 PM EDT documented as of this encounter Care Teams Software Release Manager Relationship Specialty Start Date End Date Rosaline Smith NP [address] [place] [address] [email or web address] PCP - General Internal Medicine 11/07/21 Rosaline Smith NP [address] [place] [address] [email or web address] Historical LMR Provider 02/13/17 Neeru Vaughn CNP [address] [place] [address] [email or web address] Historical LMR Provider 02/13/17 Que Madsen MD [address] [place] [address] [email or web address] Historical LMR Provider 02/13/17 Que Madsen MD [address] [place] [address] [email or web address] Insurance Assigned Provider 08/27/18 Rosaline Smith NP [address] [place] [address] [email or web address] Insurance Assigned Provider 07/30/24 documented as of this encounter Additional Source Comments The information contained in this document represents components of the legal health record. It is not the complete legal health record.[facility]
--- OUTSIDE RECORDS SUMMARY | 2025-01-18 18:42 | XMS_ITS | Encounter Summary ---
Author Organization [facility] Address [facility] [address] [place] [address] Phone Care Team Providers Care Tile Roofer Name Role Phone Rosaline Smith NP Unavailable [phone] Neeru Vaughn POLITICAL SCIENCE INSTRUCTOR Unavailable [phone] Que Madsen MD Unavailable [phone] Que Madsen MD Unavailable [phone] Rosaline Smith NP Primary Care Provider + [phone] Rosaline Smith NP Unavailable [phone] Reason for Visit * Reason Onset Date Comments Please call 11/29/2024 REQUESTING CALL BACK 11/29/2024 Encounter Details Date Type Department Care Team (Late st Contact Info) Description 11/29/2024 Telephone [facility] [place] Internal Medicine 14 [facility] [address] [place] [address] Rosaline Smith NP 14 [facility] [address] [place], [place] [phone] [email or web address] Please call; REQUESTING CALL BACK Social History Tobacco Use Types Packs/Day Years [...] Progress Notes * Rosaline Smith NP - 12/05/2024 1:57 PM EDT Called and spoke with Alison at 1250pm today to discuss situation with step father. He has had increased paranoia, ? Lucila, irritability, insomnia, confusion since starting on Lorazepam through [facility]. I suspect he is suffering from side effects of Lorazepam in elderly and less likely dementia, but may have a touch of this. Hard to assess given his heightened anxiety. He is also struggling withwithdrawal from Lorazepam and my recommendation would be to have him involuntarily sectioned to [facility] for geriatric psych evaluation for admission to help safely taper this medication and/or start him on something else to help manage symptoms. His friend Francis is unable to convince him to go to ED for evaluation. Patient has not been reachable today. She will call and ask for wellness check and possible involuntary section with police/social work present. * Dior Groves - 12/01/2024 3:39 PM EDT Alison called and LVM: She knows Ulisses has an appointment next week and she is hoping at this appointment patient can get all the help he needs. She also thinks he needs care at home. She would like to speak to someone before apportionment. [phone] Also looking for assistance at home she thinks will need provider sign off. * Mindy Hilliard, JUAN CARLOS - 11/30/2024 9:48 AM EDT Call made to patient's friend Saira No answer Left message to call the office at her convenience * Dior Groves - 11/29/2024 4:25 PM EDT Saira GUERRA sorry missed. She would still like to talk to someone concerning patient. [phone] * Samantha Gonzalez PA-C - 11/29/2024 4:24 PM EDT Agree with nurse plan of care, particularly with the recommendation for the wellness check by the local police if there is no contact from patient by this evening. Will leave for for PCP. Samantha Gonzalez PA-C, MSCP, [facility] Support * Prachi Mccormack, RN - 11/29/2024 3:30 PM EDT Call made to Alison. HCP form in chart. Spoke at length. Reviewed recent situation with Ulisses. She has been hearing from people close to him that he has been concerning them with his mental health. She has been trying to get him to call her. He has only been texting her large chunks of text that do not always make a lot of sense. She thinks he is doing talk to text. Discussed that we have been receiving many messages from him that do not always make sense. She cannot come out to [facility] to see him at this time but plans to come out next month. She is concerned about memory issues also. Discussed the lorazepam taper, and the stress of retiring and that there are many aspects in his life right now that may be compounding any memory issues he may be experiencing. Discussed recommendations for pt to seek phychiatric evaluation at [facility] as their behavioral health unit has a emma-psych component that [facility] does not. She was expecting him to text at 3pm today and he has not responded to her. She will discuss the need for a psychiatric evaluation and advise he go [facility] for this. She will express that this will be a safe place for him right now where he can get the support he needs. If she does not hear from him this evening she will call the local police to do a wellness check onhim. Discussed that pt has an appointment with PCP this coming Wednesday. She will remind him and do what she can to be sure he does not miss this appointment. Will f/u as needed. * Noemy Estrada - 11/29/2024 2:35 PM EDT Received Alison's fax of Patients Health Care Proxy and scanned it in. Her correct phone # is [phone] * Noemy Estrada - 11/29/2024 1:29 PM EDT Spoke to Alison: Informed her that she can either try to fax it or have someone drop it off. Gave her our direct fax #. She asked about mailing. I gave her our P.O. Box and she is hoping the stamping mill tender will be able to fax it so she is able to talk to us. * Mindy Hilliard, JUAN CARLOS - 11/29/2024 1:23 PM EDT Call received from [facility] psychologist private practice She discharged him 10/24 due to non compliance, not wanting to try any further medication trials She said she finds that [facility] is better than [facility] ER for mental health/ psych evaluations She states that she finds for crisis criteria its all in who you get on the phone Will review with provider * Dior Groves - 11/29/2024 1:01 PM EDT Alison called back and just received conformation that she is patient's HC agent. A copy is being emailed to her as well as a hard copy. She wants to know the best way to get a copyto this office. Please call [phone] * Mindy Hilliard, JUAN CARLOS - 11/29/2024 12:32 PM EDT Call made to patient's step daughter Alison We do not have a HCP on file, Alison is not listed as a contact lens lathe operator She has received phone calls from Ulisses's employees that he cannot take care of himself anymore He is confused, upsetting a lot of people They feel he needs to move to an assisted living Reviewed that we unfortunately cannot disclose any information about Ulisses's medical history We are aware of the situations and working to establish a plan Call made to Rajani Ghotrapr patients psychiatrist to review ([phone]) No answer Left message to call the office at her convenience * Noemy Estrada - 11/29/2024 12:19 PM EDT Patients step daughter Alison LMOM. She said that she was told that patient needed some assistance medically. She lives in [place] but is hoping she can get a pulse on what's going on. She said that she believes she is Ulisses's Health Care Proxy. Her # [phone] * Mindy Hilliard, JUAN CARLOS - 11/29/2024 9:10 AM EDT Call made to Saira to review No answer Left message to call the office at her convenience * Dior Groves - 11/29/2024 8:21 AM EDT Saira- a friend of Ulisses (she was with him at this last visit) would like to speak to someone concerning Ulisses--she knows about HIPAA- she just wants to share some information. Please call [phone] documented in this encounter Plan of Treatment Upcoming Encounters Date Type Department Care Team (Late st Contact Info) Description 07/17/2025 3:30 PM EDT Office Visit [facility] [place] Internal Medicine [address] [address] Rosaline Smith NP [address] [address] [email or web address] documented as of this encounter Visit Diagnoses Not on filedocumented in this encounter Additional Health Concerns Assessment Noted Time PHQ-2 Depression Total Score: 1 07/07/19 25 3:45 PM EDT documented as of this encounter Care Teams Tile Roofer Relationship Specialty Start Date End Date Rosaline Smith NP [address] [place] [address] [email or web address] PCP - General Internal Medicine 11/07/21 Rosaline Smith NP [address] [place] [address] [email or web address] Historical LMR Provider 02/13/17 Neeru Vaughn CNP [address] [place] [address] [email or web address] Historical LMR Provider 02/13/17 Que Madsen MD [address] [place] [address] Historical LMR Provider 02/13/17 Que Madsen MD [address] [place] [address] [email or web address] Insurance Assigned Provider 08/27/18 Rosaline Smith NP [address] [place] [address] [address] [place] [address] [email or web address] Insurance Assigned Provider 07/30/24 documented as of this encounter Additional Source Comments The information contained in this document represents components of the legal health record. It is not the complete legal health record.[facility]
--- OUTSIDE RECORDS SUMMARY | 2025-01-18 18:42 | XMS_ITS | Encounter Summary ---
Author Organization [facility] Address [address] [place] [address] [place] [address] Phone Care Team Providers Care Pad Machine Offbearer Name Role Phone Rosaline Smith NP Primary Care Provider +[phone] Brad Valerio MD Unavailable Rosaline Smith NP Unavailable Neeru Vaughn OPENER TENDER Unavailable [phone] Mariaa Velasquez MD Unavailable Que Madsen MD Unavailable [phone] Manav Berger MD Unavailable [phone] Kemal Gracia MD Unavailable Chan Sutton MD Unavailable Unavailable En Foster MD Unavailable Jerry You MD Unavailable Que Madsen MD Unavailable [phone] Que Madsen MD Primary Care Provider [phone] Rosaline Smith NP Primary Care Provider +[phone]- Que Madsen MD Primary Care Provider [phone] Rosaline Smith NP Primary Care Provider +1- Qeu Madsen MD Unavailable [phone] Rosaline Smith NP Unavailable Pretty Merrill [facility] Unavailable Chanel Tripp Unavailable elif [email or web address] Encounter Details Date Type Department Care Team (Late st Contact Info) Description 09/15/2018 Procedure Pass [facility] Endoscopy Admitting Dept [facility] Department [address] [place] [address] Social History Tobacco Use Types Packs/Day Years [...] Description 07/17/2025 3:30 PM EDT Office Visit [facility] [place] Internal Medicine 14 [facility] [address] [place] [address] Rosaline Smith NP 14 [facility] [address] [place] [address] [email or web address] documented as of this encounter Visit Diagnoses Not on filedocumented in this encounter Additional Health Concerns Infection Onset Date Last Indicated Resolved Time CoV-Exposed Comment:Recent close contact 02/29/2020 02/29/2020 03/14/2020 1:24 AM EST CoV-Exposed Comment:Recent close contact documented in the [...] documented as of this encounter Care Teams Pad Machine Offbearer Relationship Specialty Start Date End Date Rosaline Smith NP [address] [place] [address] [email or web address] PCP - General 02/11/17 02/06/20 Que Madsen MD [address] [place] [address] [email or web address] PCP - General Internal Medicine 02/07/20 03/15/20 Rosaline Smith NP [address] [place] [address] [email or web address] PCP - General Internal Medicine 03/16/20 02/09/21 Que Madsen MD [address] [place] [address] [email or web address] PCP - General Internal Medicine 02/10/21 11/06/21 Rosaline Smith NP [address] [place] [address] [email or web address] PCP - General Internal Medicine 11/07/21 Brad Valerio MD [address] [place] [address] Historical LMR Provider 02/13/17 2 Rosaline Smith NP 14 [facility] [address] [place] [address] Historical LMR Provider 02/13/17 Neeru Vaughn, LUISITO 14 [facility] [address] [place] [address] Historical LMR Provider 02/13/17 Mariaa Velasquez MD 15 [facility], 2nd [place] [address] Historical LMR Provider 02/13/17 Que Madsen MD [address] [address] Historical LMR Provider 02/13/17 Manav Berger MD 22 [facility], [address] [place] [address] Historical LMR Provider 02/13/17 05/03/21 Kemal Gracia MD 3500 [facility] [address] [place] [address] Historical LMR Provider 02/13/17 2 Chan Sutton MD Historical LMR Provider 02/13/17 05/03/21 En Foster MD [address] [place] [address] Historical LMR Provider 02/13/17 2 Jerry You MD [address] [place] [address] Historical LMR Provider 02/13/17 Que Madsen MD [address] [place] [address] Insurance Assigned Provider 08/27/18 Que Madsen MD [address] [place] [address] Insurance Assigned Provider 07/31/23 07/30/24 Rosaline Smith NP [address] [place] [address] Insurance Assigned Provider 07/30/24 Pretty Merrill LICSW [address] [place] [address] [employer] Social Work 10/02/24 10/30/24 Chanel Tripp [address] [place] [address] [email or web address] Community Jet Inspector 10/03/24 10/03/24 documented as of this encounter Additional Source Comments The information contained in this document represents components of the legal health record. It is not the complete legal health record.[facility]
--- OUTSIDE RECORDS SUMMARY | 2025-01-18 18:42 | XMS_ITS | Encounter Summary ---
Author Organization [facility] Address [facility] access hospital [facility] [address] [place] [address] Phone Care Team Providers Care Second Mate Name Role Phone Rosaline Smith NP Unavailable [phone] Neeru Vaughn ANALYTICAL LABORATORY TECHNICIAN Unavailable [phone] Que Madsen MD Unavailable [phone] Que Madsen MD Unavailable [phone] Rosaline Smith NP Primary Care Provider + [phone] Rosaline Smith NP Unavailable [phone] Reason for Visit * Reason Onset Date Comments call 12/11/2024 Encounter Details Date Type Department Care Team ([facility] st Contact Info) Description 12/11/2024 Telephone [facility] [address] [facility] [address] [place] [address] Rosaline Smith NP 14 [facility] [address] [place] [address] [phone] [email or web address] call Social History Tobacco Use Types Packs/Day [...] as of this encounter Progress Notes * Iliana Jara MA - 12/11/2024 12:29 PM EDT HCP on file lists Alison and Phyllis. I do not see brother listed * Hannah Patel - 12/11/2024 10:53 AM EDT Pt brother calling pt is in pt at [facility] he is looking for information medications and other information, to help advocate for his brother. Pt brother in asking for phone to discuses medications, and other thighs . I advised that we would need permission to talk with him. I did advise we would not intervene with any in pt care pt is receiving. Central Support Foreign Service Teacher (Please do not reply to this user; this inbox is not monitored.) Thank you. documented in this encounter Plan of Treatment Upcoming Encounters Date Type Department Care Team (Late st Contact Info) Description 07/17/2025 3:30 PM EDT Office Visit [facility] [address] [facility] [address] [place] [address] Rosaline Smith NP [address] [place] [address] [place] [address] [email or web address] documented as of this encounter Visit Diagnoses Not on filedocumented in this encounter Additional Health Concerns Assessment Noted Time PHQ-2 Depression Total Score: 1 07/07/19 25 3:45 PM EDT documented as of this encounter Care Teams Second Mate Relationship Specialty Start Date End Date Rosaline Smith NP [address] [place] [address] [place] [address] [email or web address] PCP - General Internal Medicine 11/07/21 Rosaline Smith NP [address] [place] [address] [place] [address] [email or web address] Historical LMR Provider 02/13/17 Johana Neeru LUISITO Harris [address] [place] [address] [email or web address] Historical LMR Provider 02/13/17 Que Madsen MD [address] [place] [address] [email or web address] Historical LMR Provider 02/13/17 Que Madsen MD [address] [place] [address] [email or web address] Insurance Assigned Provider 08/27/18 Rosaline Smith NP [address] [place] [address] [email or web address] Insurance Assigned Provider 07/30/24 documented as of this encounter Additional Source Comments The information contained in this document represents components of the legal health record. It is not the complete legal health record.[facility]
--- OUTSIDE RECORDS SUMMARY | 2025-01-18 18:42 | XMS_ITS | Encounter Summary ---
Author Organization [facility] Address [facility] [employer] [facility] [address] [place] [address] Phone Care Team Providers Care Subsurface Augmentee Elint Operator Name Role Phone Rosaline Smith NP Unavailable + [phone] Johana Neeru Harirs CONSUMER MARKETING SPECIALIST Unavailable [phone] Que Madsen MD Unavailable [phone] Que Madsen MD Unavailable [phone] Rosaline Smith NP Primary Care Provider [phone] Que Madsen MD Unavailable [phone] Rosaline Smith NP Unavailable + [phone] Pretty Merrill [facility] Unavailable Chanel Tripp Unavailable elif [email or web address] Encounter Details Date Type Department Care Team (Late st Contact Info) Description 05/07/2023 Transcribe Orders [facility] Specimen Processing [address] [place] [address] Rosaline Smith NP 14 [facility] [address] [place] [address] [email or web address] Social History Tobacco Use Types Packs/Day Years [...] Upcoming Encounters Date Type Department Care Team ([facility] st Contact Info) Description 07/17/2025 3:30 PM EDT Office Visit [facility] [place] [facility] [address] [facility] [address] [place] [address] Rosaline Smith NP [address] [place] [address] [place] [address] [email or web address] documented as of this encounter Visit Diagnoses [...] documented as of this encounter Care Teams Subsurface Augmentee Elint Operator Relationship Specialty Start Date End Date Rosaline Smith NP [address] [place] [address] PCP - General Internal Medicine 11/07/21 Rosaline Smith NP [address] [place] [address] Historical LMR Provider 02/13/17 Shannan Vaughnanna LUISITO Harris [address] [place] [address] Historical LMR Provider 02/13/17 Que Madsen MD [address] [place] [address] [email or web address] Historical LMR Provider 02/13/17 Que Madsen MD [address] [place] [address] [email or web address] Insurance Assigned Provider 08/27/18 Que Madsen MD [address] [place] [address] [email or web address] Insurance Assigned Provider 07/31/23 07/30/24 Rosaline Smith NP [address] [place] [address] Insurance Assigned Provider 07/30/24 Pretty Merrill LICSW [address] [place] [address] [email or web address] [facility] Social Work 10/02/24 10/30/24 Chanel Tripp [address] [place] [address] [email or web address] [email or web address] Community Conveyor Feeder Offbearer 10/03/24 10/03/24 documented as of this encounter Additional Source Comments The information contained in this document represents components of the legal health record. It is not the complete legal health record.[facility]
--- OUTSIDE RECORDS SUMMARY | 2025-01-18 18:42 | XMS_ITS | Clinical Summary ---
Author Organization [facility] Address [address] [place] [address] Care Team Providers Care Button Tufter Name Role Phone Pcp, No Primary Care [...] Health Maintenance Due Date Last Done Comments Advance Care Planning 1950 Hepatitis C Virus Screening 1950 DTaP/Tdap/Td Vaccines (1 - Tdap) 07/09/1971 Colonoscopy 1997 Pneumococcal Vaccines 50+ (1 of 1 - PCV) 2002 Zoster (Shingles) Vaccine (1 of 2) 2002 Influenza Vaccine 11/24/2024 02/18/2019, , 01/19/2013, Additional history exists COVID-19 Vaccine ( - 2024- season) 2024 01/18/2021, 06/24/2020, 06/03/2020 RSV Vaccine 60 years and older and Patients (1 - 1-dose 75+ series) 07/09/2027 Hepatitis B Vaccines Aged Out No long er eligible based on patient's age to complete this topic Insurance MEDICARE PART A & B [facility] Care Teams Button Tufter Relationship Specialty Start Date End Date Pcp, No PCP - General General Medicine 02/04/21
--- OUTSIDE RECORDS SUMMARY | 2025-01-18 18:42 | XMS_ITS | Encounter Summary ---
Author Organization [facility] Address [address] [place] [address] [place] [address] Phone Care Team Providers Care Market Risk Manager Name Role Phone Rosaline Smith NP Primary Care Provider [phone] Brad Valerio MD Unavailable Rosaline Smith NP Unavailable Neeru Vaughn MIXER FOAM RUBBER Unavailable [phone] Mariaa Velasquez MD Unavailable Que Madsen MD Unavailable [phone] Manav Berger MD Unavailable [phone] Kemal Gracia MD Unavailable Chan Sutton MD Unavailable Unavailable En Foster MD Unavailable Jerry You MD Unavailable Que Madsen MD Unavailable [phone] Que Madsen MD Primary Care Provider [phone] Rosaline Smith NP Primary Care Provider +[phone] Que Madsen MD Primary Care Provider [phone] Rosaline Smith NP Primary Care Provider +[phone] Que Madsen MD Unavailable [phone] Rosaline Smith NP Unavailable Pretty Merrill [facility] Unavailable Chanel Tripp Unavailable elif [email or web address] Encounter Details Date Type Department Care Team (Latest Contact Info) Description 08/02/2017 Transcribe Orders [facility] Laboratory [address] [address] Orville Ingram MD [address] [facility], [address] [place] [address] [email or web address] 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) Social History Tobacco Use Types Packs/Day Years Used Date Smoking Tobacco: Never Smokeless Tobacco: Never Alcohol Use Standard Drinks/Week Comments Yes 0 (1 standard drink = 0.6 oz [...] Description 07/17/2025 3:30 PM EDT Office Visit [facility] [place] [facility] 14 [facility] [address] [place] [address] Rosaline Smith NP 14 [facility] [address] [place] [address] [email or web address] documented as of this encounter Results * PSA (screening) (08/02/2017 12:28 PM EDT) PSA 2.10 0 - 4.00 ng/mL [facility] Blood 08/02/2017 12:2 8 PM EDT 08/02/2017 12:31 PM EDT us Orville Ingram MD LAB BLOOD ORDERABLES Final Res ult [facility] [address] [place] [address] documented in this encounter Visit Diagnoses Diagnosis Benign localized hyperplasia of prostate with urinary retention- Primary Benign localized hyperplasia of prostate with urinary obstruction and other lower urinary tract symptoms (LUTS) documented in this encounter Additional Health Concerns [...] CoV-Risk 01/31/2024 01/31/2024 02/11/2024 1:24 AM EDT documented as of this encounter Care Teams Market Risk Manager Relationship Specialty Start Date End Date Rosaline Smith NP [address] [place] [address] [place] [address] [email or web address] PCP - General 02/11/17 02/06/20 Que Madsen MD [address] [place] [address] [place] [address] [email or web address] PCP - General Internal Medicine 02/07/20 03/15/20 Rosaline Smith NP [address] [place] [address] [place] [address] [email or web address] PCP - General Internal Medicine 03/16/20 02/09/21 Que Madsen MD [address] [place] [address] [email or web address] PCP - General Internal Medicine 02/10/21 11/06/21 Rosaline Smith NP [address] [place] [address] [email or web address] PCP - General Internal Medicine 11/07/21 Brad Valerio MD 22 [facility] [address] [place] [address] Historical LMR Provider 02/13/17 2 Rosaline Smith, GEORGE [address] [place] [address] [email or web address] Historical LMR Provider 02/13/17 Neeru Vaughn, MIXER FOAM RUBBER [address] [place] [address] [email or web address] Historical LMR Provider 02/13/17 Mariaa Velasquez MD [address] [place] [address], 2nd [place] [address] [email or web address] Historical LMR Provider 02/13/17 Que Madsen MD [address] [place] [address] [email or web address] Historical LMR Provider 02/13/17 Manav Berger MD 22 [facility] 301 [place] [address] [email or web address] Historical LMR Provider 02/13/17 05/03/[address] [facility] [address] [address] Historical LMR Provider 02/13/17 2 Chan Sutton MD Historical LMR Provider 02/13/17 05/03/21 En Foster MD [address] [place] [phone] Historical LMR Provider 02/13/17 2 Jerry You MD [address] [place] [address] Historical LMR Provider 02/13/17 Que Madsen MD [address] [place] [address] [place] [address] [email or web address] Insurance Assigned Provider 08/27/18 Que Madsen MD [address] [place] [address] [place] [address] [email or web address] Insurance Assigned Provider 07/31/23 07/30/24 Rosaline Smith NP [address] [place] [address] [place] [address] [email or web address] Insurance Assigned Provider 07/30/24 Pretty Mrerill LICSW [address] [place] [address] iCMP Social Work 10/02/24 10/30/24 Chanel Tripp [address] [place] [address] [email or web address] [facility] Community Credit Officer 10/03/24 10/03/24 documented as of this encounter Additional Source Comments The information contained in this document represents components of the legal health record. It is not the complete legal health record.[facility]
--- OUTSIDE RECORDS SUMMARY | 2025-01-18 18:43 | XMS_ITS | Encounter Summary ---
Author Organization [facility] Address [facility] [address] [place] [address] Phone Care Team Providers Care Supervisor Payroll Name Role Phone Rosaline Smith NP Unavailable [phone] Neeru Vaughn WASTE HAND Unavailable [phone] Que Madsen MD Unavailable [phone] Que Madsen MD Unavailable [phone] Rosaline Smith NP Primary Care Provider [phone] Que Madsen MD Unavailable [phone] Rosaline Smith NP Unavailable [phone] Pretty Merrill [facility] Unavailable [phone] Chanel Tripp Unavailable elif [email or web address] Encounter Details Date Type Department Care Team (Late st Contact Info) Description 12/14/2023 Procedure [facility], Ct Scan - [address] [address] Social History Tobacco Use Types Packs/Day Years [...] Description 07/17/2025 3:30 PM EDT Office Visit [facility] Internal Medicine [address] [address] Rosaline Smith, GEORGE [address] [place] [address] [email or web address] documented as of this encounter Visit Diagnoses Not on filedocumented in this encounter Additional Health Concerns Infection Onset Date Last Indicated Resolved Time COVID-19 12/25/2023 12/25/2023 01/15/2024 1:22 AM EDT CoV-Risk 01/31/2024 01/31/2024 02/11/2024 1:24 AM EDT Assessment Noted Time PHQ-2 Depression Total Score: 0 09/01/19 18 1:08 PM EDT documented as of this encounter Care Teams Supervisor Payroll Relationship Specialty Start Date End Date Rosaline Smith NP [address] [place] [address] PCP - General Internal Medicine 11/07/21 Rosaline Smith NP [address] [place] [address] Historical LMR Provider 02/13/17 Neeru Vaughn, WASTE HAND [address] [place] [address], [place] [address] [email or web address] Historical LMR Provider 02/13/17 Que Madsen MD [address] [place] [address] [email or web address] Historical LMR Provider 02/13/17 Que Madsen MD [address] [place] [address] [place] [address] [email or web address] Insurance Assigned Provider 08/27/18 Que Madsen MD [address] [place] [address] Insurance Assigned Provider 07/31/23 07/30/24 Rosaline Smith NP [address] [place] [address] Insurance Assigned Provider 07/30/24 Pretty Merrill LICSW [address] [place] [address] iCMP Social Work 10/02/24 10/30/24 Chanel Tripp [address] [place] [address] [email or web address] [email or web address] Community Saxophone Assembler 10/03/24 10/03/24 documented as of this encounter Additional Source Comments The information contained in this document represents components of the legal health record. It is not the complete legal health record.[facility]
--- OUTSIDE RECORDS SUMMARY | 2025-01-18 18:43 | XMS_ITS | Encounter Summary ---
Author Organization [facility] Address [address] [place] [address] [place] [address] Phone Care Team Providers Care Hoop Maker Name Role Phone Rosaline Smith NP Primary Care Provider +[phone] Brad Valerio MD Unavailable Rosaline Smith NP Unavailable Neeru Vaughn STUCCO APPLICATOR Unavailable [phone] Mariaa Velasquez MD Unavailable Que Madsen MD Unavailable +[phone] Manav Berger MD Unavailable [phone] Kemal Gracia MD Unavailable Chan Sutton [...] [phone] Rosaline Smith NP Unavailable Pretty Merrill [facility] Unavailable Chanel Tripp Unavailable elif [email or web address] Encounter Details Date Type Department Care Team (Latest Contact Info) Description 08/11/2018 Transcribe Orders [facility] Laboratory [address] [address] Orville Ingram MD 3640 [facility], [address] [place] [address] [email or web address] Elevated prostate specific antigen (PSA) (Primary Dx) Social History Tobacco Use Types [...] Description 07/17/2025 3:30 PM EDT Office Visit [facility] [place] [facility] 14 [facility] [address] [place] [address] Rosaline Smith NP 14 [facility] [address] [place] [address] [email or web address] documented as of this encounter Results * PSA (screening) (08/11/2018 9:58 AM EDT) PSA 1.70 0 - 4.00 ng/mL [facility] Blood 08/11/2018 9:58 AM EDT 08/11/2018 10:03 AM EDT us Orville Ingram MD LAB BLOOD ORDERABLES Final Res ult [facility] [address] [place] [address] documented in this encounter Visit Diagnoses Diagnosis Elevated prostate specific antigen (PSA)- Primary documented in this encounter Additional Health Concerns [...] documented as of this encounter Care Teams Hoop Maker Relationship Specialty Start Date End Date Rosaline Smith NP [address] [place] [address] [email or web address] PCP - General 02/11/17 02/06/20 Que Madsen MD [address] [place] [address] [place] [address] [email or web address] PCP - General Internal Medicine 02/07/20 03/15/20 Rosaline Smith NP [address] [place] [address] [place] [address] [email or web address] PCP - General Internal Medicine 03/16/20 02/09/21 Que Madsen MD [address] [place] [address] [email or web address] PCP - General Internal Medicine 02/10/21 11/06/21 Rosaline Smith NP [address] [place] [address] [email or web address] PCP - General Internal Medicine 11/07/21 Brad Valerio MD [address] [place] [address] [address] [place] [address] Historical LMR Provider 02/13/17 2 Rosaline Smith NP [address] [place] [address] [email or web address] Historical LMR Provider 02/13/17 Neeru Vaughn, STUCCO APPLICATOR [address] [place] [address] [email or web address] Historical LMR Provider 02/13/17 Mariaa Velasquez MD [address] [place] [address], 2nd [place] [address] [email or web address] Historical LMR Provider 02/13/17 Que Madsen MD [address] [place] [address] [email or web address] Historical LMR Provider 02/13/17 Manav Berger MD [address] [place] [address] 301 [place] [address] [email or web address] Historical LMR Provider 02/13/17 05/03/21 Kemal Gracia MD [facility] [address] [address] Historical LMR Provider 02/13/17 2 Chan Sutton MD Historical LMR Provider 02/13/17 05/03/21 En Foster MD [address] [place] [phone] Historical LMR Provider 02/13/17 2 Jerry You MD [address] [place] [address] Historical LMR Provider 02/13/17 Que Madsen MD [address] [place] [address] [place] [address] [email or web address] Insurance Assigned Provider 08/27/18 Que Madsen MD [address] [place] [address] [place] [address] [email or web address] Insurance Assigned Provider 07/31/23 07/30/24 Rosaline Smith NP [address] [place] [address] [place] [address] [email or web address] Insurance Assigned Provider 07/30/24 Pretty Merrill LICSW [address] [place] [address] [facility] 10/02/24 10/30/24 Chanel Tripp [address] [place] [address] [email or web address] [facility] Community Plateman 10/03/24 10/03/24 documented as of this encounter Additional Source Comments The information contained in this document represents components of the legal health record. It is not the complete legal health record.[facility]
--- OUTSIDE RECORDS SUMMARY | 2025-01-18 18:43 | XMS_ITS | Encounter Summary ---
Author Organization [facility] Address [facility] [address] [place] [address] Phone Care Team Providers Care Blood Bank Booking Clerk Name Role Phone Rosaline Smith NP Unavailable [phone] Shannan Vaughnanna Kimberly LICENSED EMBALMER Unavailable [phone] Que Madsen MD Unavailable [phone] Que Madsen MD Unavailable [phone] Rosaline Smith NP Primary Care Provider [phone] Que Madsen MD Unavailable [phone] Rosaline Smith NP Unavailable [phone] Pretty Merrill [facility] Unavailable Chanel Tripp Unavailable [email or web address] Encounter Details Date Type Department Care Team (Late st Contact Info) Description 12/14/2023 Procedure Pass [facility] [address] [place] [address] Social History Tobacco Use Types Packs/Day Years [...] Description 07/17/2025 3:30 PM EDT Office Visit [facility] Internal Medicine [address] [address] Rosaline Smith NP [address] [place] [address] [email or web address] documented as of this encounter Visit Diagnoses Not on filedocumented in this encounter Additional Health Concerns Infection Onset Date Last Indicated Resolved Time COVID-19 12/25/2023 12/25/2023 01/15/2024 1:22 AM EDT CoV-Risk 01/31/2024 01/31/2024 02/11/2024 1:24 AM EDT Assessment Noted Time PHQ-2 Depression Total Score: 0 09/01/19 18 1:08 PM EDT documented as of this encounter Care Teams Blood Bank Booking Clerk Relationship Specialty Start Date End Date Rosaline Smith NP [address] [place] [phone] PCP - General Internal Medicine 11/07/21 Rosaline Smith NP [address] [place] [address] Historical LMR Provider 02/13/17 Neeru Vaughn, LICENSED EMBALMER [address] [place] [address] [email or web address] Historical LMR Provider 02/13/17 Que Madsen MD 14 [facility] [address] [place] [address] Historical LMR Provider 02/13/17 Que Madsen MD [address] [place] [address] [place] [address] Insurance Assigned Provider 08/27/18 Que Madsen MD [address] [place] [address] Insurance Assigned Provider 07/31/23 07/30/24 Rosaline Smith NP [address] [place] [address] Insurance Assigned Provider 07/30/24 Pretty Merrill [address] [address] [facility] 10/02/24 10/30/24 Chanel Tripp [address] [place] [phone] [email or web address] [facility] Community Jointer Operator 10/03/24 10/03/24 documented as of this encounter Additional Source Comments The information contained in this document represents components of the legal health record. It is not the complete legal health record.[facility]
--- OUTSIDE RECORDS SUMMARY | 2025-01-18 18:43 | XMS_ITS | Encounter Summary ---
Author Organization [facility] Address [address] [place] [address] [place] [address] Phone Care Team Providers Care Strategic Sourcing Manager Name Role Phone Rosaline Smith NP Primary Care Provider [phone] Brad Valerio MD Unavailable Rosaline Smith NP Unavailable Neeru Vaughn SAFETY ASSISTANT Unavailable [phone] Mariaa Velasquez MD Unavailable Que Madsen MD Unavailable [phone] Manav Berger MD Unavailable [phone] Kemal Gracia MD Unavailable Chan Sutton MD Unavailable Unavailable En oFster MD Unavailable Jerry You MD Unavailable Que Madsen MD Unavailable [phone] Que Madsen MD Primary Care Provider [phone] Rosaline Smith NP Primary Care Provider +[phone] Que Madsen MD Primary Care Provider [phone] Rosaline Smith NP Primary Care Provider +[phone] Que Madsen MD Unavailable [phone] Rosaline Smith NP Unavailable Pretty Merrill [facility] Unavailable Chanel Tripp Unavailable elif [email or web address] Encounter Details Date Type Department Care Team (Latest Contact Info) Description 02/15/2018 Transcribe Orders [facility] Laboratory [address] [address] Orville Ingram MD [facility] [employer], [address] [place] [address] [email or web address] Elevated PSA (Primary Dx) Social History Tobacco Use Types [...] 07/17/2025 3:30 PM EDT Office Visit [facility] Internal Medicine [address] [phone] Rosaline Smith NP [address] [address] [email or web address] documented as of this encounter Results * PSA (screening) (02/15/2018 10:48 AM EDT) PSA 2.20 0 - 4.00 ng/mL [facility] Blood 02/15/2018 10:4 8 AM EDT 02/15/2018 10:52 AM EDT us Orville Ingram MD LAB BLOOD ORDERABLES Final Res ult [address] [address] documented in this encounter Visit Diagnoses Diagnosis Elevated PSA- Primary Elevated prostate specific antigen (PSA) documented in this encounter Additional Health Concerns [...] documented as of this encounter Care Teams Strategic Sourcing Manager Relationship Specialty Start Date End Date Rosaline Smith NP [address] [place] [address] [place] [phone] [email or web address] PCP - General 02/11/17 02/06/20 Que Madsen MD [address] [place] [address] [place] [address] [email or web address] PCP - General Internal Medicine 02/07/20 03/15/20 Rosaline Smith NP [address] [place] [address] [place] [phone] [email or web address] PCP - General Internal Medicine 03/16/20 02/09/21 Que Madsen MD [address] [place] [phone] [email or web address] PCP - General Internal Medicine 02/10/21 11/06/21 Rosaline Smith NP [address] [place] [address] [email or web address] PCP - General Internal Medicine 11/07/21 Brad Valerio MD 22 [facility] [address] [place] [address] Historical LMR Provider 02/13/17 2 Rosaline Smith, GEORGE [address] [place] [address] [email or web address] Historical LMR Provider 02/13/17 Neeru Vaughn, SAFETY ASSISTANT [address] [place] [address] [email or web address] Historical LMR Provider 02/13/17 Mariaa Velasquez MD [address] [place] [address], [address] [place] [address] [email or web address] Historical LMR Provider 02/13/17 Que Madsen MD [address] [place] [address] [email or web address] Historical LMR Provider 02/13/17 Manav Berger MD 22 [facility] [address] [place] [address] [email or web address] Historical LMR Provider 02/13/17 05/03/21 Kemal Gracia MD [facility] [address] [address] Historical LMR Provider 02/13/17 2 Chan Sutton MD Historical LMR Provider 02/13/17 05/03/21 En Foster MD [address] [place] [phone] Historical LMR Provider 02/13/17 2 Jeryr You MD [address] [place] [address] Historical LMR Provider 02/13/17 Que Madsen MD [address] [place] [address] [place] [address] [email or web address] Insurance Assigned Provider 08/27/18 Que Madsen MD [address] [place] [address] [place] [address] [email or web address] Insurance Assigned Provider 07/31/23 07/30/24 Rosaline Smith NP [address] [place] [address] [place] [phone] [email or web address] Insurance Assigned Provider 07/30/24 Pretty Merrill LICSW [address] [place] [address] [email or web address] Social Work 10/02/24 10/30/24 Chanel Tripp [address] [place] [address] [email or web address] [facility] Saw Operator 10/03/24 10/03/24 documented as of this encounter Additional Source Comments The information contained in this document represents components of the legal health record. It is not the complete legal health record.[facility]
--- OUTSIDE RECORDS SUMMARY | 2025-01-18 18:44 | XMS_ITS | Patient Health Record ---
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 Name Role Phone MYNOR GARCIA Unavailable [phone] VANESSA PETIT Unavailable [phone] AUSTIN VANN Unavailable [phone] MARLON CABA Unavailable [phone] Allergies No Known Allergies Results Component Value Reference Range Notes Creatinine-[id number] Reviewed date:01/20/2024 01:29:52 PM Interpretation:Cr 1.07, eCrCl 63ml/min Performing Lab:[facility], [address], [address], [place], Phone - [phone], Director - [facility] Notes/Report: Creatinine 1.07 0.76-1.27 mg/dL eGFR 74 >59 mL/min/1.73 HBsAg Screen-[id number] Reviewed date:01/20/2024 01:24:33 PM Interpretation:Negative Performing Lab:[facility], [address], [address], [place], Phone - [phone], Director - [facility] Notes/Report: HBsAg Screen Negative Negative Hepatitis B Surf Ab Quant-00 6530 Reviewed date:01/20/2024 01:24:54 PM Interpretation:Immune Performing Lab:[facility], [address], [address], [place], Phone - [phone], Director - [facility] Notes/Report: Hepatitis B Surf Ab Quant 196.0 Immunity>10 mIU /mL Status of Immunity Anti-HBs Level Inconsistent with Immunity 0.0 - 10.0 Consistent with Immunity >10.0 T pallidum Screening Swisher -[id number] Reviewed date:01/20/2024 01:25:05 PM Interpretation:Non-reactive Performing Lab:[facility] [place], [address], [address], [place], Phone - [phone], Director - [facility] Notes/Report: T pallidum Antibodies Non Reactive Non Reactive HIV Ab/p24 Ag with Reflex-08 [id number] Reviewed date:01/20/2024 01:24:24 PM Interpretation:Non-reactive Performing Lab:[facility] [place], [address], [address], [place], Phone - [phone], Director - [facility] Notes/Report: HIV Ab/p24 Ag Screen Non Reactive Non Reactive HIV-1/HIV-2 antibodies and HIV-1 p24 antigen were NOT detected. There is no laboratory evidence of HIV infection. HIV Negative Chlamydia/GC Amplification-1 [id number] Reviewed date:01/21/2024 01:38:53 PM Interpretation:Negative Performing Lab:[facility] [place], [address], [address], [place], Phone - [phone], Director - [facility] Notes/Report: Chlamydia trachomatis, KARLA Negative Negative Neisseria gonorrhoeae, KARLA Negative Negative Ct/GC KARLA, Rectal-[id number] Reviewed date:01/21/2024 01:38:45 PM Interpretation:Negative Performing Lab:[facility] [place], [address], [address], [place], Phone - [phone], Director - [facility] Notes/Report: C. trachomatis, KARLA, Rectal Negative Negative N. gonorrhoeae, KARLA, Rectal Negative Negative Ct/GC KARLA, Pharyngeal-[id number] Reviewed date:01/21/2024 01:39:02 PM Interpretation:Negative Performing Lab:[facility] [place], [address], [address], [place], Phone - [phone], Director - [facility] Notes/Report: C. trachomatis, KARLA, Pharyn Negative Negative N. gonorrhoeae, KARLA, Pharyn Negative Negative HCV Antibody-[id number] Reviewed date:01/21/2024 01:40:32 PM Interpretation:Negative Performing Lab:[facility] [place], [address], [place], Phone - [phone], Director - [facility] Notes/Report: Hep C Virus Ab Non Reactive Non Reactive HCV antibody alone does not differentiate between previously resolved infection and active infection. Equivocal and Reactive HCV antibody results should be followed up with an HCV RNA test to support the diagnosis of active HCV infection. T pallidum Screening Swisher -[id number] Reviewed date:02/21/2024 01:41:21 PM Interpretation:Negative Performing Lab:[facility] [place], [address] [facility], [place], Phone - [phone], Director - [facility] Notes/Report: T pallidum Antibodies Non Reactive Non Reactive HIV Ab/p24 Ag with Reflex-08 [id number] Reviewed date:02/21/2024 01:41:11 PM Interpretation:Negative Performing Lab:[facility] [place], [address] [facility], [place], Phone - [phone], Director - [facility] Notes/Report: HIV Ab/p24 Ag Screen Non Reactive Non Reactive HIV-1/HIV-2 antibodies and HIV-1 p24 antigen were NOT detected. There is no laboratory evidence of HIV infection. HIV Negative HCV Antibody-[id number] Reviewed date:02/21/2024 01:41:00 PM Interpretation:Negative Performing Lab:[facility] [place], [address] [facility], [place], Phone - [phone], [facility] Notes/Report: Hep C Virus Ab Non Reactive Non Reactive HCV antibody alone does not differentiate between previously resolved infection and active infection. Equivocal and Reactive HCV antibody results should be followed up with an HCV RNA test to support the diagnosis of active HCV infection. T pallidum Screening Swisher -[id number] Reviewed date:04/17/2024 10:08:01 PM Interpretation:Negative Performing Lab:[facility] [place], [address], [place], Phone - [phone], Director - [facility] Notes/Report: T pallidum Antibodies Non Reactive Non Reactive HIV Ab/p24 Ag with Reflex-08 [id number] Reviewed date:04/17/2024 10:08:09 PM Interpretation:Negative Performing Lab:[facility] [place], [address], [place], Phone - [phone], Director - [facility] Notes/Report: HIV Ab/p24 Ag Screen Non Reactive Non Reactive HIV-1/HIV-2 antibodies and HIV-1 p24 antigen were NOT detected. There is no laboratory evidence of HIV infection. HIV Negative Ct/GC KARLA, Pharyngeal-[id number] Reviewed date:04/17/2024 10:08:18 PM Interpretation:Negative Performing Lab:[facility] [place], [address], [address], [place], Phone - [phone], Director - [facility] Notes/Report: C. trachomatis, KARLA, Pharyn Negative Negative N. gonorrhoeae, KARLA, Pharyn Negative Negative HCV Antibody-[id number] Reviewed date:04/17/2024 10:08:29 PM Interpretation:Negative Performing Lab:[facility] [place], [address], [place], Phone - [phone], Director - [facility] Notes/Report: Hep C Virus Ab Non Reactive Non Reactive HCV antibody alone does not differentiate between previously resolved infection and active infection. Equivocal and Reactive HCV antibody results should be followed up with an HCV RNA test to support the diagnosis of active HCV infection. T pallidum Screening Swisher -[id number] Reviewed date:06/26/2024 11:51:13 AM Interpretation:Negative Performing Lab:[facility] [place], [address], [place], Phone - [phone], Director - [facility] Notes/Report: T pallidum Antibodies Non Reactive Non Reactive HIV Ab/p24 Ag with Reflex-08 [id number] Reviewed date:06/26/2024 11:51:03 AM Interpretation:Negative Performing Lab:[facility] [place], [address], [place], Phone - [phone], Director - [facility] Notes/Report: HIV Ab/p24 Ag Screen Non Reactive Non Reactive HIV-1/HIV-2 antibodies and HIV-1 p24 antigen were NOT detected. There is no laboratory evidence of HIV infection. HIV Negative Ct/GC KARLA, Pharyngeal-[id number] Reviewed date:06/26/2024 11:50:44 AM Interpretation:Negative Performing Lab:[facility] [place], [address], [address], [place], Phone - [phone], Director - [facility] Notes/Report: C. trachomatis, KARLA, Pharyn Negative Negative N. gonorrhoeae, KARLA, Pharyn Negative Negative HCV Antibody-[id number] Reviewed date:06/26/2024 11:50:54 AM Interpretation:Negative Performing Lab:[facility] [place], [address], [place], Phone - [phone], Director - [facility] Notes/Report: Hep C Virus Ab Non Reactive Non Reactive HCV antibody alone does not differentiate between previously resolved infection and active infection. Equivocal and Reactive HCV antibody results should be followed up with an HCV RNA test to support the diagnosis of active HCV infection. Creatinine-[id number] Reviewed date:07/20/2024 03:09:48 PM Interpretation:Cr 0.91, eCrCl 73ml/min Performing Lab:[facility] [place], [address], [place], Phone - [phone], Director - [facility] Notes/Report: Creatinine 0.91 0.76-1.27 mg/dL eGFR 90 >59 mL/min/1.73 T pallidum Screening Swisher -[id number] Reviewed date:07/20/2024 03:07:24 PM Interpretation:Negative Performing Lab:[facility] [place], [address], [place], Phone - [phone], Director - [facility] Notes/Report: T pallidum Antibodies Non Reactive Non Reactive HIV Ab/p24 Ag with Reflex-08 [id number] Reviewed date:07/20/2024 03:07:51 PM Interpretation:Negative Performing Lab:[facility] [place], [address], [place], Phone - [phone], Director - [facility] Notes/Report: HIV Ab/p24 Ag Screen Non Reactive Non Reactive HIV-1/HIV-2 antibodies and HIV-1 p24 antigen were NOT detected. There is no laboratory evidence of HIV infection. HIV Negative Chlamydia/GC Amplification-1 [id number] Reviewed date:07/21/2024 10:10:29 AM Interpretation:Negative Performing Lab:[facility] [place], [address], [place], Phone - [phone], Director - [facility] Notes/Report: Chlamydia trachomatis, KARLA Negative Negative Neisseria gonorrhoeae, KARLA Negative Negative Ct/GC KARLA, Pharyngeal-[id number] Reviewed date:07/21/2024 10:10:21 AM Interpretation:Negative Performing Lab:[facility], [address], [address], [place], Phone - [phone], Director - [facility] Notes/Report: C. trachomatis, KARLA, Pharyn Negative Negative N. gonorrhoeae, KARLA, Pharyn Negative Negative HCV Antibody-[id number] Reviewed date:07/20/2024 03:07:35 PM Interpretation:Negative Performing Lab:[facility], [address], [address], [place], Phone - [phone], Director - [facility] Notes/Report: Hep C Virus Ab Non Reactive Non Reactive HCV antibody alone does not differentiate between previously resolved infection and active infection. Equivocal and Reactive HCV antibody results should be followed up with an HCV RNA test to support the diagnosis of active HCV infection. T pallidum Screening Swisher -[id number] Reviewed date:08/23/2024 08:47:39 AM Interpretation:Negative Performing Lab:[facility], [address], [address], [place], Phone - [phone], Director - [facility] Notes/Report: T pallidum Antibodies Non Reactive Non Reactive T pallidum Screening Swisher -[id number] Reviewed date:09/25/2024 10:32:31 AM Interpretation:Negative Performing Lab:[facility], [address], [address], [place], Phone - [phone], [facility] - [facility] Notes/Report: T pallidum Antibodies Non Reactive Non Reactive Reason For Referral No Information Medications Medication SIG (Take, Route, Frequency, Duration) Notes Start Date End Date Status Descovy 200-25 MG Tablet 1 tablet Orally Once a day; Duration: 30 days 04/23/2023 Active Tamsulosin HCl Activ e Propranolol HCl Acti ve Lisinopril Active Doxycycline Monohydrate 100 MG Capsule 2 capsule Orally once; Duration: 30 days As needed 11/02/2023 Active Gemtesa Active Mirtazapine Active Immunizations Vaccine Route Administration Date Status Comme nts MPOX ID Intradermal 02/11/2022 Administered MPOX ID Intradermal 03/13/2022 Administered Social History Sex Assigned At : Social History Observation Description Sex Assigned At Male Social History HIV Risk Assessment Social Info Question Answer Notes Additional Questions Is an HIV Risk Assessment being c onducted? Yes Did you have a blood transfusion prior to 1985? No Do you have an unlicensed body piercing or tattoo? No Reproductive Life Plan: Social Info Question Answer Notes Reproductive Life Plan: Do you want to h ave children? No, I don't want to have children How sure are you that you will be able to use your control method without any problems? Very sure People's plans change. Is it possible you or your partner could ever decide to become ? No Human Trafficking: Social Info Question Answer Notes Human Trafficking Experienced: No PrEP for HIV: Social Info Question Answer Notes PrEP for HIV Is the client intere sted in beginning/continuing PrEP for HIV? Yes Do you currently have any HIV+ partners? No In the past 6 months, have you had any HIV+ partners? No Are you a commercial sex worker? No Counseling Provided: Social Info Question Answer Notes Counseling Provided Please indicate the length of time, in minutes, that counseling was provided. 8 Counseling Was Provided By: alton Drugs/Alcohol: Social Info Question Answer Notes Drug/Alcohol Use Do you or have you used drugs? Yes, c urrently By what route are you taking drugs? Please check all that apply: Smoking Which drug(s) do you smoke? Marijuana Do you or have you used alcohol? Yes, currently Food Access: Social Info Question Answer Notes Food Access The Client's current access to food is Secure Food Access Relationships: Social Info Question Answer Notes Relationships Has the client exper ienced any of the following: Client has never experienced harmful relationships Housing Social Info Question Answer Notes Housing The client's current living situation is: stable housing Tobacco Use: Social Info Question Answer Notes Tobacco Use: Do you/have you used tobacco? 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 ; Contact with and (suspected) exposure to other viral communicable diseases Z20.828 ; Encounter for screening for human immunodeficiency virus [HIV] Z11.4 ; Encounter for HIV pre-exposure prophylaxis Z29.81 ; Encounter for screening for infections with a predominantly sexual mode of transmission Z11.3 ; Encounter for screening for other viral diseases Z11.59 and Other problems related to lifestyle Z72.[address] [id number] 02/16/2024 MARLON CABA Encounter for screen ing for infections with a predominantly sexual mode of transmission Z11.3 ; Counseling, unspecified Z71.9 ; Other problems related to lifestyle Z72.89 ; Encounter for screening for human immunodeficiency virus [HIV] Z11.4 and Encounter for screening for other viral diseases Z11.[address] [id number] 04/12/2024 MARLON CABA Encounter for screen ing for human immunodeficiency virus [HIV] Z11.4 ; Encounter for HIV pre-exposure prophylaxis Z29.81 ; Encounter for screening for infections with a predominantly sexual mode of transmission Z11.3 ; Other problems related to lifestyle Z72.89 and Encounter for screening for other viral diseases Z11.[address] [place], [place] [id number] 04/27/2024 MARLON CABA Counseling, unspecif ied Z71.[address] [id number] 06/16/2024 MARLON CABA Encounter for screen ing for infections with a predominantly sexual mode of transmission Z11.3 ; HIV Screening Z11.4 ; Screening for other viral diseases Z11.59 and Other problems related to lifestyle Z72.[address] [id number] 06/21/2024 MARLON CABA [place] [facility] [address] [place] [id number] 07/05/2024 MARLON CABA Counseling, unspecif ied Z71.[address] [id number] 07/19/2024 MARLON CABA Encounter for screen ing for human immunodeficiency virus [HIV] Z11.4 ; Encounter for HIV pre-exposure prophylaxis Z29.81 ; Encounter for screening for infections with a predominantly sexual mode of transmission Z11.3 ; Other problems related to lifestyle Z72.89 ; Encounter for screening for other viral diseases Z11.59 and 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 [place] [facility] [address] [place] [id number] 08/18/2024 MARLON CABA Encounter for screen ing for infections with a predominantly sexual mode of transmission Z11.3 and Other problems related to lifestyle Z72.89 [place] [facility] [address] [place], [place] [id number] 08/21/2024 MARLON CABA [place] [facility] [address] [place] [id number] 09/22/2024 MARLON CABA Encounter for screen ing for infections with a predominantly sexual mode of transmission Z11.3 ; Counseling, unspecified Z71.9 and Other problems related to lifestyle Z72.89 [facility] [address] [id number] 01/19/2024 MARLON CABA [facility] [address] [id number] 01/26/2024 MARLON CABA [facility] [address] [id number] 02/18/2024 MARLON CABA [facility] [address] [id number] 02/18/2024 MARLON CABA [facility] [address] [id number] 03/03/2024 MARLON CABA [place] [facility] [address] [facility] [address] [place], [place] [id number] 03/09/2024 MARLON CABA [place] [facility] [address] [facility] [address] [place] [id number] 03/10/2024 MARLON CABA [facility] [address] [facility] [address] [place], [place] [id number] 03/22/2024 MARLON CABA [place] [facility] [address] [facility] [place] [place] [id number] 04/06/2024 AUSTIN VANN [facility] [address] [facility] [address] [place], [place] [id number] 04/12/2024 MARLON CABA [facility] [address] [id number] 05/12/2024 MARLON CABA [facility] [address] [id number] 06/14/2024 MARLON ROSALES [facility] [address] [place] [id number] 07/19/2024 MARLON ROSALES [facility] [address] [place] [address] [id number] 07/28/2024 MARLON ROSALES [facility] [address] [place] [address] [id number] 08/21/2024 MARLON ROSALES [place] [facility] [address] [place] [address] [place], [place] [id number] 08/25/2024 MARLON ROSALES Encounter for HIV pre-exposure prophylaxis Z29.81 [facility] [address] [place] [address] [id number] 10/16/2024 MARLON ROSALES Encounter for HIV pre-exposure prophylaxis Z29.81 [facility] [address] [place] [address] [id number] 11/09/2024 MARLON ROSALES Encounter for HIV pre-exposure prophylaxis Z29.[address] [facility] [id number] 12/13/2024 VANESSA TOWNSENDI Assessments Encounter Date Diagnosis (ICD Code) Assessment Notes Treatment Notes Treatment Clinical Notes Section Notes 01/19/2024 Contact with and (suspected) exposure to other viral communicable diseases (ICD-10 - Z20.828) Need 2 out of 3 Sections from A-C Section A) Problems (only need one from below) Section B) Data (need at least one of the following categories in this section) Category 1: (Choose three of the following): Order Unique tests Section C) Risk (any one of the following) Prescription drug management (this counts for the whole section) 01/19/2024 Other [facility] (current) drug therapy (ICD-10 - Z79.899) For PrEP labs today. 90 day Rx sent. Will contact with any concerns regarding labs. Fu in 3 months Need 2 out of 3 Sections from A-C Section A) Problems (only need one from below) Section B) Data (need at least one of the following categories in this section) Category 1: (Choose three of the following): Order Unique tests Section C) Risk (any one of the following) Prescription drug management (this counts for the whole section) 02/16/2024 Encounter for screening for infections with a predominantly sexual mode of transmission (ICD-10 - Z11.3) Discussed STI risks, screenings that are available through [facility] and safe sex. Wrote out Low risk activity for HIV: oral sex, kissing, vaginal/anal sex with condom from start to finish and with PrEP High risk: condomless anal sex (Receptive/botto m > penatrative/top) , condomless vaginal sex (less risk than anal sex) PrEP use helps to reduce risk for all types of sex significantly Clt aware of lab processing times and how to view results on portal and how positive results will be communicated Need 2 out of 3 Sections from A-C Section A) Problems (only need one from below) One acute or uncomplicated illness/injury Section B) Data (at least one of the following categories in this section) Category 1: (Choose 2 of the following): Order unique tests Section C) Risk Document low risk of morbidity/morta lity 04/12/2024 Encounter for screening for human immunodeficiency virus [HIV] (ICD-10 - Z11.4) Need 2 out of 3 Sections from A-C Section A) Problems (only need one from below) Section B) Data (need at least one of the following categories in this section) Category 1: (Choose three of the following): Order Unique tests Section C) Risk (any one of the following) Prescription drug management (this counts for the whole section) 04/27/2024 Counseling, unspecified (ICD-10 - Z71.9) Reviewed all of clt's questions. We don't provide HIV treatment here so not familiar with all the different HIV treatment optionsbut there are multiple options and the correct mix of meds would be provided to clt and monitored appropriately by specialist if that were ever needed. Reminded clt of window times for testing HIV, Hep B/C, syphilis and GC/CT and trich Spent 15 minutes doing the following: Chart Prep Obtaining/revie wing history Counseling/Coor dination of Care Documenting the visit Educating the patient Established Patient: [id number] 10 Minutes 06/16/2024 Encounter for screening for infections with a predominantly sexual mode of transmission (ICD-10 - Z11.3) Discussed STI risks, screenings that are available through [facility] and safe sex. Reviewed that deep kissing is generally considered low risk but that there can still be some risk for STI's. HIV, HCV very low to no risk. Clt would like STI screening at this time. Clt to come in for specimen collection next week once 6 wks out from event. Clt aware of lab processing times and how to view results on portal and how positive results will be communicated Recommend we cancel 07/05 visit and keep 07/19/24 visit for PrEP fu. Clt in agreement Spent 18 minutes doing the following: Chart Prep Obtaining/revie wing history Counseling/Coor dination of Care Documenting the visit Educating the patient Ordering medication/test /procedures Established Patient: [id number] 10 Minutes 06/16/2024 HIV Screening (ICD-10 - Z11.4) Spent 18 minutes doing the following: Chart Prep Obtaining/revie wing history Counseling/Coor dination of Care Documenting the visit Educating the patient Ordering medication/test /procedures Established Patient: [id number] 10 Minutes 07/05/2024 Counseling, unspecified (ICD-10 - Z71.9) Reviewed clt's concerns. I am not aware of any literature that suggests delay of HIV detection upto a year with PrEP use. Oral PrEP is associated with possibly delay of detection upto a month. Reassurance given around clt's last unprotected event and multiple neg HIV tests since then. Plan for PrEP follow up 07/19 Spent 15 minutes doing the following: Chart Prep Obtaining/revie wing history Counseling/Coor dination of Care Documenting the visit Educating the patient Established Patient: [id number] 10 Minutes 08/18/2024 Other problems related to lifestyle (ICD-10 - Z72.89) Spent 15 minutes doing the following: Chart Prep Obtaining/revie wing history Counseling/Coor dination of Care Documenting the visit Educating the patient Ordering medication/test /procedures Established Patient: [id number] 10 Minutes 08/18/2024 Encounter for screening for infections with a predominantly sexual mode of transmission (ICD-10 - Z11.3) Clt aware that overall STI transmission is low with deep kissing. Clt would like to fu last testing by repeating syphilis testing. Can go to [facility] in [place] as clt is having transportation issues. Discussed STI risks, screenings that are available through [facility] and safe sex. Clt aware of lab processing times and how to view results on portal and how positive results will be communicated Spent 15 minutes doing the following: Chart Prep Obtaining/revie wing history Counseling/Coor dination of Care Documenting the visit Educating the patient Ordering medication/test /procedures Established Patient: [id number] 10 Minutes 08/25/2024 Encounter for HIV pre-exposure prophylaxis (ICD-10 - Z29.81) 09/22/2024 Encounter for screening for infections with a predominantly sexual mode of transmission (ICD-10 - Z11.3) Reviewed clt's concerns for kissing 08/26. Clt aware that STI risks are low. Will do syphilis screening today given nearly 4wks out from encounter\ Discussed STI risks, screenings that are available through [facility] and safe sex. Clt aware of lab processing times and how to view results on portal and how positive results will be communicated Spent 15 minutes doing the following: Chart Prep Obtaining/revie wing history Performing medically necessary exam Counseling/Coor dination of Care Documenting the visit Educating the patient Ordering medication/test /procedures Established Patient: [id number] 10 Min 07/19/2024 Encounter for screening for human immunodeficiency virus [HIV] (ICD-10 - Z11.4) Need 2 out of 3 Sections from A-C Section A) Problems (only need one from below) Section B) Data (need at least one of the following categories in this section) Category 1: (Choose three of the following): Order Unique tests Section C) Risk (any one of the following) Prescription drug management (this counts for the whole section) 10/16/2024 Encounter for HIV pre-exposure prophylaxis (ICD-10 - Z29.81) 11/09/2024 Encounter for HIV pre-exposure prophylaxis (ICD-10 - Z29.81) 07/19/2024 Encounter for HIV pre-exposure prophylaxis (ICD-10 - Z29.81) For PrEP labs today. Will reach out with any concerning labs. 90 day Rx sent. Clt is considering stopping PrEP but wants to think about it for a bit longer- no recent exposure that I'm concerned about. May stop if she feels it's not needed at this time. Plan to keep fu visit and can cancel if needed. Did review that HIV is still a risk with AFAB partners as well as AMAB partners however receptive anal sex is considered higher risk compared to penetrative vaginal sex. Need 2 out of 3 Sections from A-C Section A) Problems (only need one from below) Section B) Data (need at least one of the following categories in this section) Category 1: (Choose three of the following): Order Unique tests Section C) Risk (any one of the following) Prescription drug management (this counts for the whole section) 09/22/2024 Counseling, unspecified (ICD-10 - Z71.9) Spent 15 minutes doing the following: Chart Prep Obtaining/revie wing history Performing medically necessary exam Counseling/Coor dination of Care Documenting the visit Educating the patient Ordering medication/test /procedures Established Patient: 20806 10 Min 06/16/2024 Screening for other viral diseases (ICD-10 - Z11.59) Spent 18 minutes doing the following: Chart Prep Obtaining/revie wing history Counseling/Coor dination of Care Documenting the visit Educating the patient Ordering medication/test /procedures Established Patient: [id number] 10 Minutes 04/12/2024 Encounter for HIV pre-exposure prophylaxis (ICD-10 - Z29.81) For PrEP labs today. 90 day Rx sent today. Will follow-up with any concerning labs as needed. Long discussion regarding Clt's questions around STI's and transmission risk. Provided clt with a notebook to write down answers to help clt with remembering info as clt often will repeat questions. Encouraged to bring back with future visitsso we can continue to add to clt's notes as needed. HIV dx can be delayed while on PrEP. It's estimated to be delayed by upto an extra 1 month with oral PrEP use. However the risk of getting HIV is very low with consistent PrEP use and limited unprotected anal/vaginal sex. Can book a fu phone visit to answer questions as needed but challenging to do it outside of clinic time due to workload. Clt verbalized understanding Need 2 out of 3 Sections from A-C Section A) Problems (only need one from below) Section B) Data (need at least one of the following categories in this section) Category 1: (Choose three of the following): Order Unique tests Section C) Risk (any one of the following) Prescription drug management (this counts for the whole section) 02/16/2024 Counseling, unspecified (ICD-10 - Z71.9) Need 2 out of 3 Sections from A-C Section A) Problems (only need one from below) One acute or uncomplicated illness/injury Section B) Data (at least one of the following categories in this section) Category 1: (Choose 2 of the following): Order unique tests Section C) Risk Document low risk of morbidity/morta lity 01/19/2024 Encounter for screening for human immunodeficiency virus [HIV] (ICD-10 - Z11.4) Discussed STI risks, screenings that are available through [facility] and safe sex. For Hep B and C screening today. Reviewed clt's questions around transmission of STI's and precautions for limiting transmission. Reviewed timelines for testing. Clt would like to retest for syphilis around the 3 month elvi from 11/11 exposure date. To be scheduled Clt aware of lab processing times and how to view results on portal and how positive results will be communicated Need 2 out of 3 Sections from A-C Section A) Problems (only need one from below) Section B) Data (need at least one of the following categories in this section) Category 1: (Choose three of the following): Order Unique tests Section C) Risk (any one of the following) Prescription drug management (this counts for the whole section) 01/19/2024 Encounter for HIV pre-exposure prophylaxis (ICD-10 - Z29.81) Need 2 out of 3 Sections from A-C Section A) Problems (only need one from below) Section B) Data (need at least one of the following categories in this section) Category 1: (Choose three of the following): Order Unique tests Section C) Risk (any one of the following) Prescription drug management (this counts for the whole section) 02/16/2024 Other problems related to lifestyle (ICD-10 - Z72.89) Need 2 out of 3 Sections from A-C Section A) Problems (only need one from below) One acute or uncomplicated illness/injury Section B) Data (at least one of the following categories in this section) Category 1: (Choose 2 of the following): Order unique tests Section C) Risk Document low risk of morbidity/morta lity 04/12/2024 Encounter for screening for infections with a predominantly sexual mode of transmission (ICD-10 - Z11.3) Discussed STI risks, screenings that are available through [facility] and safe sex. Clt aware of lab processing times and how to view results on portal and how positive results will be communicated Need 2 out of 3 Sections from A-C Section A) Problems (only need one from below) Section B) Data (need at least one of the following categories in this section) Category 1: (Choose three of the following): Order Unique tests Section C) Risk (any one of the following) Prescription drug management (this counts for the whole section) 09/22/2024 Other problems related to lifestyle (ICD-10 - Z72.89) Spent 15 minutes doing the following: Chart Prep Obtaining/revie wing history Performing medically necessary exam Counseling/Coor dination of Care Documenting the visit Educating the patient Ordering medication/test /procedures Established Patient: [id number] 10 Min 07/19/2024 Encounter for screening for infections with a predominantly sexual mode of transmission (ICD-10 - Z11.3) Discussed STI risks, screenings that are available through [facility] and safe sex. Clt aware of lab processing times and how to view results on portal and how positive results will be communicated Monkey pox testing is only available when current symptoms are present - no symptoms currently for screening. Rash sounds more consistent with dry skin Need 2 out of 3 Sections from A-C Section A) Problems (only need one from below) Section B) Data (need at least one of the following categories in this section) Category 1: (Choose three of the following): Order Unique tests Section C) Risk (any one of the following) Prescription drug management (this counts for the whole section) 07/19/2024 Other problems related to lifestyle (ICD-10 - Z72.89) Need 2 out of 3 Sections from A-C Section A) Problems (only need one from below) Section B) Data (need at least one of the following categories in this section) Category 1: (Choose three of the following): Order Unique tests Section C) Risk (any one of the following) Prescription drug management (this counts for the whole section) 06/16/2024 Other problems related to lifestyle (ICD-10 - Z72.89) Spent 18 minutes doing the following: Chart Prep Obtaining/revie wing history Counseling/Coor dination of Care Documenting the visit Educating the patient Ordering medication/test /procedures Established Patient: [id number] 10 Minutes 02/16/2024 Encounter for screening for human immunodeficiency virus [HIV] (ICD-10 - Z11.4) Need 2 out of 3 Sections from A-C Section A) Problems (only need one from below) One acute or uncomplicated illness/injury Section B) Data (at least one of the following categories in this section) Category 1: (Choose 2 of the following): Order unique tests Section C) Risk Document low risk of morbidity/morta lity 01/19/2024 Encounter for screening for infections with a predominantly sexual mode of transmission (ICD-10 - Z11.3) Need 2 out of 3 Sections from A-C Section A) Problems (only need one from below) Section B) Data (need at least one of the following categories in this section) Category 1: (Choose three of the following): Order Unique tests Section C) Risk (any one of the following) Prescription drug management (this counts for the whole section) 04/12/2024 Other problems related to lifestyle (ICD-10 - Z72.89) Need 2 out of 3 Sections from A-C Section A) Problems (only need one from below) Section B) Data (need at least one of the following categories in this section) Category 1: (Choose three of the following): Order Unique tests Section C) Risk (any one of the following) Prescription drug management (this counts for the whole section) 01/19/2024 Encounter for screening for other viral diseases (ICD-10 - Z11.59) Need 2 out of 3 Sections from A-C Section A) Problems (only need one from below) Section B) Data (need at least one of the following categories in this section) Category 1: (Choose three of the following): Order Unique tests Section C) Risk (any one of the following) Prescription drug management (this counts for the whole section) 02/16/2024 Encounter for screening for other viral diseases (ICD-10 - Z11.59) Need 2 out of 3 Sections from A-C Section A) Problems (only need one from below) One acute or uncomplicated illness/injury Section B) Data (at least one of the following categories in this section) Category 1: (Choose 2 of the following): Order unique tests Section C) Risk Document low risk of morbidity/morta lity 04/12/2024 Encounter for screening for other viral diseases (ICD-10 - Z11.59) Need 2 out of 3 Sections from A-C Section A) Problems (only need one from below) Section B) Data (need at least one of the following categories in this section) Category 1: (Choose three of the following): Order Unique tests Section C) Risk (any one of the following) Prescription drug management (this counts for the whole section) 07/19/2024 Encounter for screening for other viral diseases (ICD-10 - Z11.59) Need 2 out of 3 Sections from A-C Section A) Problems (only need one from below) Section B) Data (need at least one of the following categories in this section) Category 1: (Choose three of the following): Order Unique tests Section C) Risk (any one of the following) Prescription drug management (this counts for the whole section) 07/19/2024 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) Need 2 out of 3 Sections from A-C Section A) Problems (only need one from below) Section B) Data (need at least one of the following categories in this section) Category 1: (Choose three of the following): Order Unique tests Section C) Risk (any one of the following) Prescription drug management (this counts for the whole section) 01/19/2024 Other problems related to lifestyle (ICD-10 - Z72.89) Need 2 out of 3 Sections from A-C Section A) Problems (only need one from below) Section B) Data (need at least one of the following categories in this section) Category 1: (Choose three of the following): Order Unique tests Section C) Risk (any one of the following) Prescription drug management (this counts for the whole section) Plan Of Treatment No Information Insurance Providers Payer Name Payer Address Payer Phone Subscriber Number Group Number Insured Name Patient Relationship to Insured Coverage Start Date Coverage End Date MEDICARE PART B [address] [place] [phone] [id number] lUisses Kitchen Self - patient is the insured [facility] [address] [place] [address] [id number] Ulisses Kitchen Self - patient is the insured Medical (General) History Medical History History ICD Code Depression/anxiety Hypertension (taking medication) HSV1 oral cold sores hx OCD Hep B immune Surgical History Surgery Date(Month/Year) Hospitalization History Reason Date(Month/Year) Diverticulitis 2013
--- OUTSIDE RECORDS SUMMARY | 2025-01-18 18:44 | XMS_ITS | Encounter Summary ---
Author Organization [facility] Address [address] [place] [address] [place] [phone] Phone Care Team Providers Care Radio Frequency Engineer Name Role Phone Rosaline Smith NP Unavailable [phone] Shannan Vaughnanna Kimberly FLIGHT ATTENDANT Unavailable [phone] Que Madsen MD Unavailable [phone] Que Madsen MD Unavailable [phone] Rosaline Smith NP Primary Care Provider + Que Madsen MD Unavailable [phone] Rosaline Smith NP Unavailable [phone] Pretty Merrill [facility] Unavailable Chanel Tripp Unavailable elif [email or web address] Encounter Details Date Type Department Care Team (Late st Contact Info) Description 04/07/2024 Procedure Pass [facility] Admitting Dept Virtual Department [address] [place] [address] Social History Tobacco Use Types Packs/Day Years [...] with a working camera? Not on file Intimate Partner Violence Answer Date R ecorded Are you denied basic needs s uch as food, clothing, or medical care? No 04/04/2024 In the past 12 months have y ou been in a relationship with a person who hurts, threatens, or tries to control you? No 04/04/2024 Are you denied basic needs s uch as food, clothing, or medical care? No 04/04/2024 In the past 12 months have y ou been in a relationship with a person who hurts, threatens, or tries to control you? No 04/04/2024 Sex and Gender Information Value Date Recorded Sex Assigned at Male 04/08/2021 9:39 AM EST Legal Sex Male 6:20 PM EST Gender Identity Male 04/08/2021 9:39 AM EST Sexual Orientation Bisexual 10/29/2022 11 :58 AM EDT documented as of this encounter Plan of Treatment Upcoming Encounters Date Type Department Care Team (Late st Contact Info) Description 07/17/2025 3:30 PM EDT Office Visit [facility] [place] [facility] [address] [place] [phone] Rosaline Smith NP [address] [place] [phone] [email or web address] documented as of this encounter Visit Diagnoses Not on filedocumented in this encounter Additional Health Concerns Assessment Noted Time PHQ-2 Depression Total Score: 0 09/01/19 18 1:08 PM EDT documented as of this encounter Care Teams Radio Frequency Engineer Relationship Specialty Start Date End Date Rosaline Smith NP [address] [place] [phone] [email or web address] PCP - General Internal Medicine 11/07/21 Rosaline Smith NP [address] [place] [phone] [email or web address] Historical LMR Provider 02/13/17 Neeru Vaughn CNP [address] [place] [phone] Historical LMR Provider 02/13/17 Que Madsen MD [address] [place] [phone] [email or web address] Historical LMR Provider 02/13/17 Que Madsen MD [address] [place] [phone] [email or web address] Insurance Assigned Provider 08/27/18 Que Madsen MD [address] [place] [phone] [email or web address] Insurance Assigned Provider 07/31/23 07/30/24 Rosaline Smith, GEORGE [address] [place] [phone] [email or web address] Insurance Assigned Provider 07/30/24 Pretty Merrill LICSW [address] [place] [phone] [facility] Social Work 10/02/24 10/30/24 Chanel Tripp [address] [place] [phone] [email or web address] [facility] Community Solar Installation Supervisor 10/03/24 10/03/24 documented as of this encounter Additional Source Comments The information contained in this document represents components of the legal health record. It is not the complete legal health record.[facility]
== END 2025-01-18 15:00 | disposition home or self-care (01) ==
LOC: HO.SSS 14:22
PROVIDERS: Visit Provider Radiology Diagnostic Radiology
PROC: 009U3ZZ Drainage of Spinal Canal, Percutaneous Approach (ICD-10-PCS; CPT 62270; principal; 2025-01-18 14:00)
DX: G93.2 Benign intracranial hypertension (principal); G04.90 Encephalitis and encephalomyelitis, unspecified
CPT/HCPCS: 62328